=== PATIENT | female | born 1945 | race Caucasian/White ===

== ENCOUNTER → 2016-07-08 | Outpatient (CLI) | payer OTHER ==
[~2016-07-08] MED LIST: ACET-1256 PO; ASPI81TA28 PO; ATOR-22 PO; CHOL100010 PO; CYAN10005 PO; DILT-113 PO; DOCU100C31 PO; DOXY100C76 PO; GLC/500 PO; HYDR-5688 PO; HYDR25TA4 PO; INSDGI SC; LORA10CA2 PO; LOSA50TA6 PO; MAGN400T5 PO; MCRK/10 PO; METO-452 PO; NITR0.4S UT; NVLGI SC; NVLGI7030 SC; PANT40TA PO; PHN/100 PO; PREG100C PO; TOPI200T14 PO; VENL150C56 PO
--- NOTE | 2016-07-08 11:32 | Discharge Instructions ---
Discharge Instructions Procedure Procedure Date: July 08, 2016. Reason for visit: Right Calcs. Discharge Discharge Date: July 08, 2016. Discharge Diagnosis: post ultrasound guided core biopsy left breast and stereotactic guided biopsy right breast. Medications Restart Stopped Medication(s): Continue Aspirin as per usual Instructions Activity Recommendations: Additional Limitations (see below) Return to School/Work: no limitations Recommended Home Diet: No Limitations Provider Instructions: ACTIVITY RECOMMENDATIONS: * No lifting, pushing, pulling or exercising the affected side for three days. RETURN TO SCHOOL/WORK: * You may return to work/school after the procedure, but do not perform any strenuous activities for 24 to 48 hours. MEDICATIONS: * Tylenol (two 325 mg) every four to six hours if needed for mild pain (if not allergic to Tylenol). DIET: * Resume previous diet. SPECIAL CARE INSTRUCTIONS: * Keep biopsy site dry for 24 hours. May shower after 24 hours, but do not soak (bathe) incision. * May remove Tegaderm (plastic patch) tomorrow AFTER showering. * Leave the steri-strips on for one week. Allow the steri-strips to fall off by themselves. If not off after one week, you may remove them. You may place a Bandaid crosswise over the strips, if desired. * Apply ice 10 minutes on and 10 minutes off as needed. * Wear a bra at bedtime to sleep more comfortably for 2-3 days. * Your referring physician should have the results after approximately 5 to 7 business days. * Call for unusual bleeding, fever, drainage, etc or if you have any questions call [phone] during normal business hours or after hours call Dr Amato, . FOLLOW UP VISIT: Follow-up with Referring Physician as scheduled. Allergies Coded Allergies: Fentanyl (Verified Allergy, Intermediate, HIGH BLOOD PRESSURE, SKIN FLUSHED, 01/20/16) PT RECEIVED FENTANYL WHILE AT [facility] [place], AND DEVELOPED HIGH BLOOD PRESSURE AND SKIN BECAME FLUSHED. Cephalosporins (Verified Allergy, Mild, RASH, 01/20/16) Codeine (Verified Allergy, Mild, ALTERED MENTAL STATUS, 01/20/16) Penicillins (Verified Allergy, Mild, RASH, 01/20/16) Sulfa Antibiotics (Verified Allergy, Mild, ?, 01/20/16) BEE STING (Verified Allergy, Unknown, ., 01/20/16) Cephalexin (Verified Allergy, Unknown, Rash, 01/20/16) Iodinated Contrast Media (Verified Allergy, Unknown, PASS OUT, VOMITING, 01/20/16) Ketorolac Tromethamine (Verified Allergy, Unknown, Unknown, 01/20/16) Meperidine (Verified Allergy, Unknown, ., 01/20/16) Morphine (Verified Allergy, Unknown, Nausea, 01/20/16) [place] Recommendations: Call your doctor if: * Temperature above 101 degrees * Pain not relieved by pain medicine ordered * There is increased drainage or redness from any incision * You have any unanswered questions or concerns. Your Doctors Instructions noted above were prepared by provider Michelle Amato. Patient Signature Section: Patient Instructions Signature Page Esthela Kenny Patient (or Guardian) Signature/Date: I have read and understand the instructions given to me by my caregivers. Caregiver/RN/Doctor Signature/Date: The above-named patient and/or guardian has received patient instructions on this date. + Original Patient Signature Page (only) stays with chart. Please make copy for patient.
--- NOTE | 2016-07-08 14:51 | MAMMOGRAPHY REPORT ---
STEREOTACTIC GUIDED BIOPSY RIGHT BREAST: 07/08/2016 CLINICAL HISTORY: Clustered amorphous microcalcifications in the lower outer approximate 9:00 middle one third of the right breast. Patient presented for stereotactic biopsy. COMPARISON: Comparison is made to exams dated: 06/03/2016 mammogram, 06/23/2016 mammogram, and 07/09/19 ultrasound - [facility]. PATIENT CONSENT: After explaining the risks, benefits and alternatives of the procedure to the patie nt, informed consent was obtained both verbally and in writing. Specific risks include: Bleeding, i nfection, puncture of adjacent structure, nontarget biopsy, sampling error, metal allergy and medica tion reaction. PROCEDURE DESCRIPTION: A time-out was performed and the right breast was confirmed as the site of bi opsy. The patient was placed prone on the stereotactic biopsy table and the breast was placed in lat eral compression. A front desk lead image was obtained that demonstrated the clustered microcalcifications in question. They are amenable to sterotactic biopsy. Then +15 and -15 stereo pair images were obtai janeen. The calcifications were targeted utilizing the coordinates obtained by the computer. The skin was prepped with Betadine. 1% Lidocaine with and without epinipherine was administered as local anes thesia. A small skin incision was made. Through the incision, the needle was inserted to the depth determined by the computer. 10 samples were obtained using a Grovac 9-gauge vacuum-assisted bio psy device. The specimen radiograph demonstrated several call center support representative microcalcifications, therefo re, a metallic marker was placed at the biopsy site. There was no immediate complication. Hemostasis was achieved after several minutes of manual compression. The samples were sent to pathology in an appropriately labeled container. Postprocedure CC and ML views of the right breast demonstrate a new metallic biopsy marker in the ap proximate 9:00 middle one third of the breast. There is a post biopsy hematoma measuring approximat mati 6.7 x 6.1 x 4.3 mm. Additional ice packs, Tegaderm patches, Steri-Strips and gauze were provide d to the patient and her pharmacist helper prior to leaving the department with the potential for redressing the incision later tonight or tomorrow. IMPRESSION: STEREOTACTIC GUIDED BIOPSY Status post right breast stereotactic guided biopsy of clustered amorphous microcalcifications in th e approximate 9:00 right breast, with biopsy marker placed at the site. The patient will receive notification of the results from her referring physician. Michelle Amato M.D. ay/:07/08/2016 11:52:02 Chief Investment Officer: Kylie MCKINNEY)(Meghana), [facility]
--- NOTE | 2016-07-08 14:51 | MAMMOGRAPHY REPORT ---
ULTRASOUND GUIDED BIOPSY LEFT BREAST: 07/08/2016 CLINICAL HISTORY: 6 x 5 mm lobulated and circumscribed mass in the lower inner anterior left breast identified mammographically. Targeted second look ultrasound demonstrated a possible intraductal ma ss versus debris within an ectatic duct in the 9:00 left breast. Patient presents for ultrasound gu ided core biopsy. COMPARISON: Comparison is made to exams dated: 06/03/2016 mammogram, 06/23/2016 mammogram, 07/08/2016 u ltrasound, 07/08/2016 mammogram, and 07/08/2016 stereotactic biopsy - [facility]. PATIENT CONSENT: The procedure, risks and benefits were discussed with the patient and informed writ ten consent was obtained. Specific risks to this procedure include: bleeding, infection, puncture of adjacent structure, nontarget biopsy, sampling error, metal allergy and medication reaction. PROCEDURE DESCRIPTION: A time out was performed and the left breast was agreed as the site of biopsy . The skin was prepped and draped in the usual sterile fashion. The duct ectasia with internal debri s versus intraductal mass in the 9:00 left breast was chosen as the target for biopsy. Subcutaneous and intraparenchymal 1% buffered lidocaine was administered as local anesthesia. A skin incision was made. Through the incision, 3 samples were taken with a 14 gauge Achieve biopsy device. A metallic marker was placed at the biopsy site. Hemostasis was achieved after manual compression. The patient tolerated the procedure well and there was no immediate complication. The samples were sent to [facility] in an appropriately labeled container. Postprocedure left CC and ML views demonstrate a new ribbon-shaped metallic biopsy marker within the lobulated and circumscribed mass in question. No significant post biopsy hematoma is identified. IMPRESSION: ULTRASOUND GUIDED BIOPSY Status post ultrasound guided core needle biopsy of a possible intraductal mass versus duct ectasia with bland debris in the 9:00 anterior left breast, with biopsy marker placed at the site. The patient will receive notification of the biopsy results from her referring physician. Michelle Amato M.D. ay/:07/08/2016 11:43:25 Oil Well Pumper: Kylie MCKINNEY)(Meghana), [facility]
--- NOTE | 2016-07-08 14:54 | MAMMOGRAPHY REPORT ---
BILATERAL DIGITAL DIAGNOSTIC MAMMOGRAM: 07/08/2016 CLINICAL HISTORY: Indeterminate possible intraductal mass versus debris in the 9:00 left breast, and clustered micro-calcifications in the right breast. Patient presents for right breast stereotactic biopsy and left breast ultrasound guided core biopsy. Please refer to the reports from left breast ultrasound guided core biopsy and right breast stereota ctic biopsy performed at the same time for full detail. IMPRESSION: POST PROCEDURE IMAGING FOR MARKER PLACEMENT Please refer to the reports from left breast ultrasound guided core biopsy and right breast stereota ctic biopsy performed at the same time for full detail. Approximately 10% of breast cancers are not detected with mammography. A negative mammographic repor t should not delay biopsy if a clinically suggestive mass is present. Michelle Amato M.D. ay/:07/08/2016 11:35:12 Carriage Rider: Kylie MCKINNEY)(Meghana), [facility] BI-RADS Code: Post Procedure Imaging For Marker Placement
--- NOTE | 2016-07-08 14:54 | MAMMOGRAPHY REPORT ---
ULTRASOUND OF LEFT BREAST: 07/08/2016 CLINICAL HISTORY: Patient presented to our department for a stereotactic guided biopsy, as suspiciou s clustered microcalcifications were recently described in the right breast. However, upon review o f a prior outside mammogram dated 06/03/2016, the patient also has a lobulated and circumscribed 6 x 5 mm mass in the lower inner anterior left breast, for which targeted second look ultrasound is per formed. COMPARISON: Comparison is made to exams dated: 06/23/2016 mammogram and 06/03/2016 mammogram. FINDINGS: Real-time high-resolution sonographic evaluation was performed in the lower inner quadrant of the left breast to evaluate for the lobulated and circumscribed 6 x 5 mm mass seen on screening mammography. In the 9:00 left breast, there is an ectatic duct with a lobulated bulbous area measur ing 4 mm in diameter. The size, shape and location correlate well with the mammographic mass. The internal contents of this probable ectatic duct are hypoechoic as opposed to anechoic. This could r epresent bland debris versus an intraductal mass such as a papilloma or DCIS. Definitive characteri zation with tissue sampling is recommended. IMPRESSION: ACR BI-RADS CATEGORY 4: SUSPICIOUS Ultrasound guided core needle biopsy is recommended for a possible intraductal mass versus bland josette ris within duct ectasia in the 9:00 left breast, thought to correlate with a lobulated and circumscr ibed mammographic mass within the left lower inner anterior breast. These results and recommendations were discussed with the patient at the time of the exam. The biop sy was performed during the same appointment and please refer to a separate report for full detail. Michelle Amato M.D. ay/:07/08/2016 11:40:52 Pediatric Sports Medicine Specialist: Kylie JASSO(Kyle)(M), letter sent: Abnormal 4/5 BI-RADS Code: ACR BI-RADS Category 4: Suspicious
== END | disposition home or self-care (01) ==
LOC: C.MAMM 09:48
PROVIDERS: ATTEND Surgery
DX: R92.0 Mammographic microcalcification found on diagnostic imaging of breast (principal); N60.91 Unspecified benign mammary dysplasia of right breast

== ENCOUNTER → 2016-07-28 | Outpatient (CLI) | payer OTHER ==
[~2016-07-28] MED LIST changes: -METO-452 PO; +METO1TAB66 PO
--- NOTE | 2016-07-28 16:17 | MAMMOGRAPHY REPORT ---
ULTRASOUND OF RIGHT BREAST: 07/28/2016 CLINICAL HISTORY: 70-year-old woman presents 3 weeks after a right breast stereotactic guided biopsy, and left breast ultrasound guided core biopsy. She complains of "green pus draining from her incisi on" in the right breast. The left breast incision healed without complication. COMPARISON: Comparison is made to exams dated: 07/08/2016 ultrasound biopsy, 07/08/2016 mammogram, 06/22 stereotactic biopsy, 07/08/2016 ultrasound - [facility], 06/23/2016 mammogram, and 06/03/2016 mammogram. FINDINGS: On visual inspection, there is a localized mildly erythematous ovoid, 12 x 15 cm area surr ounding the skin incision from the right breast stereotactic biopsy. At the site of the skin incisio n, there is a 2.0 x 1.5 cm circular area of granulation tissue with central creamy yellowish/greenish discharge. Targeted ultrasound was performed over the lateral right breast, 9:00 axis, including the erythematou s area and central ulceration/granulation tissue. A predominantly anechoic fluid collection is seen 2 cm deep to the dermis, measuring approximately 2.1 x 2.4 x 1.9 cm. There is mild overlying skin th ickening measuring up to 3 mm. This fluid collection could simply represent evolving hematoma, as a rather large hematoma was noted after the biopsy. These findings were discussed with the patient and her [id number] and the decision was made to a spirate some of the fluid and send to the pathology department for analysis of culture and Gram stain . The skin of the lateral right breast was cleansed with Betadine. 1% buffered lidocaine without ep inephrine was administered as local anesthesia. A 22-gauge needle was advanced into the fluid collec tion and aspiration was performed. 1-2 mL of dark red/brownish fluid were aspirated. Visually this has the appearance of old hematoma. This fluid was sent to the pathology department for analysis. Additional dark brownish fluid was aspirated, approximately 5 mL utilizing an 18-gauge needle. The p atient tolerated the procedure well and there was no immediate complication. We set up a follow-up a ppointment at the wound care clinic tomorrow, 07/29/2016, at 2 PM, prior to the patient leaving the [facility]. She started doxycycline yesterday, given allergies to cephalosporins and penicillins. IMPRESSION: 1. Nonhealing skin incision in the right breast after stereotactic biopsy. Suspect superficial inci brock site infection and surrounding cellulitis. 2. Fluid collection seen in the 9:00 right breast at the site of biopsy most likely represents evolv ing hematoma as opposed to abscess, as the aspirated fluid was not creamy and color and did not appea r to contain pus. Nevertheless, some of this fluid was sent to the pathology department for culture and Gram stain. 3. A follow-up appointment at the wound care center was made prior to the patient leaving our depart ment. The appointment is for 07/29/2016 at 2 PM. All of the above findings were discussed with the patient and her [id number] at the time of the visit. Michelle Amato M.D. ay/:07/28/2016 15:48:59 Onsite Health Coach: Kylie Pagan RT(R)(M), [facility] BI-RADS Code: n/a
== END | disposition home or self-care (01) ==
LOC: C.MAMM 14:30
PROVIDERS: ATTEND Surgery
DX: N61.0 Mastitis without abscess (principal); N64.89 Other specified disorders of breast

== ENCOUNTER → 2016-10-27 | Outpatient (CLI) | payer OTHER ==
[~2016-10-27] MED LIST changes: -DOXY100C76 PO
[2016-10-27 18:19] LABS: CHOLESTEROL/HDL RATIO 2.6; THYROID STIMULATING HORMONE 2.06 uIu/ml (0.300-4.500)
[2016-10-27 18:36] LABS: RATIO 13.5 mcg/mg (0-30.0)
[2016-10-28 06:00] LABS: ESTIMATED AVERAGE GLUCOSE 143 mg/dl; HA1C FLAG Normal (Normal)
== END | disposition home or self-care (01) ==
LOC: C.LABPBG 13:51
PROVIDERS: ATTEND Nurse Practitioner Family
DX: E11.49 Type 2 diabetes mellitus with other diabetic neurological complication (principal)

== ENCOUNTER → 2017-02-10 | Outpatient (CLI) | payer OTHER ==
[~2017-02-10] MED LIST changes: +METO-452 PO; -METO1TAB66 PO
[2017-02-10 12:30] LABS: BASO % 0.9 %; BASO ABS # 0.06 K/uL (0-0.2); COMPLETE YES; EOS % 3.8 %; HEMATOCRIT 41.9 % (37-47); IG% 0.6 %; LYMPH % 28.3 %; LYMPH ABS # 1.93 K/uL (1.2-3.4); MEAN CELL VOLUME 93.3 fL (80-100); MEAN CORPUSCULAR HEMOGLOBIN 31.2 pg (25-34); MEAN CORPUSCULAR HGB CONC 33.4 g/dl (32-36); MEAN PLATELET VOLUME 10.7 fL (7.4-10.4); MONO % 7.3 %; NEUT % 59.1 %; PLATELET COUNT 258 K/uL (130-400); RED BLOOD COUNT 4.49 M/uL (4.2-5.4); WHITE BLOOD COUNT 6.83 K/uL (4.8-10.8)
[2017-02-10 12:51] LABS: ESTIMATED AVERAGE GLUCOSE 137 mg/dl; HA1C FLAG Normal (Normal)
[2017-02-10 17:50] LABS: CHOLESTEROL 158 mg/dl (0-200); CHOLESTEROL/HDL RATIO 2.4; HDL CHOLESTEROL 65 mg/dl; TRIGLYCERIDES 139 mg/dl (0-150); VERY LOW DENSITY LIPOPROT CALC 28 mg/dl
[2017-02-10 17:52] LABS: ALB/GLOB RATIO 0.8 (0.9-2); ALKALINE PHOSPHATASE 160 U/L (45-117); ALT/SGPT 24 U/L (12-78); AST/SGOT 22 U/L (15-37); BLOOD UREA NITROGEN 11 mg/dl (7-18); BUN/CREATININE RATIO 16.4 (10-20); CARBON DIOXIDE 25 mmol/L (21-32); CHLORIDE 107 mmol/L (98-107); CREATININE 0.66 mg/dl (0.60-1.20); GLUCOSE 209 mg/dl (70-99); POTASSIUM 3.4 mmol/L (3.5-5.1); SODIUM 138 mmol/L (136-145)
== END | disposition home or self-care (01) ==
LOC: C.LABPBG 10:50
PROVIDERS: ATTEND Physician Assistant Medical
DX: E11.9 Type 2 diabetes mellitus without complications (principal); R53.83 Other fatigue; G40.909 Epilepsy, unspecified, not intractable, without status epilepticus

== ENCOUNTER 2019-11-14 11:27 | Inpatient (IN) ==
[2019-11-14] MEDS ORDERED: SODIUM CHLORIDE 0.9% 1000ML 1,000 ML IV SCH (12:15)
--- NOTE | 2019-11-14 12:25 | Emergency Department Note ---
Impression & Plan Bilateral leg weakness, Diabetic peripheral neuropathy ED Provider Note Provider: Toni Hylton MD DATE OF SERVICE: 11/14/2019 CHIEF COMPLAINT: Leg pain and weakness HISTORY OF PRESENT ILLNESS: Patient is a 74-year-old female with a history of diabetes, essential tremor, peripheral neuropathy, seizures presenting via ambulance today from home with her [id number] who is her caregiver today reporting that this morning while walking to bathroom she had a severe episode of leg cramping bilaterally and pain causing weakness. She denies falling. Patient states he has been having issues with her legs worsening over approximately the past month. Was unable to get around and thus called the ambulance. Reports last several days has had decreased appetite and intake and caregiver states yesterday and today she seemed a bit off. Blood sugar was noted to be in the 150s at home and not hypoglycemic. Patient denies any difficulty speaking or weakness in her upper extremities with baseline neuropathy in the extremities. Patient denies chest pain or shortness of breath. She denies abdominal pain but states she occasionally gets some nausea. Denies urinary symptoms states she was recently treated for UTI. Patient denies bladder or bowel dysfunction upon my questioning. Patient states that her legs are back to normal now with significant neuropathy. She denies again any new traumatic injury to the lower extremities. Per her request did have the patient's daughter on the phone during H&P. Patient states she does have a little bit of back pain after being on the stretcher here but not not report any of this earlier. Denies fever at home and states she has a mild chronic cough is unchanged. Caregiver states the patient generally resides almost entirely in a recliner at home does not get around very much. REVIEW OF SYSTEMS: A total of 10 review of systems was obtained and negative except as stated above in the HPI. PAST MEDICAL HISTORY: As noted above MEDICATIONS: Reviewed home medication list SOCIAL HISTORY: Lives at home, former smoker PHYSICAL EXAM: GENERAL: alert and oriented in no acute distress on stretcher Head: normocephalic and atraumatic EYES: No injection, discharge or icterus. PERRL NECK: Trachea midline. Supple. ENT: Mucous membranes pink and moist. LUNGS: Airway patent. No retractions. Breath sounds clear anteriorly with diminished lateral bases HEART: Regular rate and rhythm. No chest wall tenderness ABDOMEN: Soft and non-tender, without guarding or rebound. SKIN: Acyanotic, warm, dry, without rashes EXTREMITIES: 1+ lower extremity swelling with neuropathy of the bilateral lower extremities to the hips as well as neuropathy of the upper extremities to the mid upper arm. No evidence of significant traumatic findings or deformity of the lower extremities. No calf tenderness bilaterally. 1+ bilateral DP pulses. NEUROLOGICAL: Neuropathy of the extremities as above. Moves all extremities without issue to command. Ambulatory with assistancex2 with walker here. EK bpm in sinus rhythm with first-degree AV block. Left bundle branch is noted with left axis. No ischemic acute ST segment elevation is noted. CONTINUOUS CARDIAC MONITORING: was ordered and showed a heart rate of 75 bpm in sinus rhythm first-degree AV block with a left bundle branch Patient's hypertension was referred to the hospitalist/PCP Patient's laboratory studies and imaging reviewed. Differential includes Infection, dehydration, metabolic abnormality, hypo/hyperglycemia, electrolyte disturbance, anemia, hypoxia, cardiac sources, i ntracerebral event, toxicologic, neurologic, as well as other pathologies. IMPRESSION/MEDICAL DECISION MAKING: Patient presents from home reporting that her legs cramped up on her today and she was unable to get around. Additionally caregiver states that she has had some decreased intake light several days and seems maybe a bit more confused. Does not seem that focal on exam here. Patient states that seem like her neuropathic type pain.. No significant traumatic fall or recent trauma repo rted. Basic labs were ordered for possible electrolyte abnormality including LFTs and lipase level. Given some fluid hydration. CT the head was ordered as well as a chest x-ray to look for possible infectious sources intercranial abnormality causing symptoms. Labs without significant abnormality. Dilantin level was therapeutic. Urine appears without significant findings for infection. Patient did have a brief syncopal episode during blood draw. Ambulatory here with multiple assist and walker. Discussed with the patient and her caregiver at bedside and her daughter via phone. Patient's daughter reports that the patient usually does not usually have the significant amount of numbness of her lower legs. Patient denies any significant back pain complaint here prior to arrival and I have lower suspicion for a cauda equina or epidural abscess at this point. Has ambulated here with assistance but again she lives by herself. Do have concerns about her ability to continue to function independently at home even with the caregivers she has given her fall risk noted here. Discussed with the daughter and the patient and caregiver recommendations for further observation here in the hospital with PT and OT and further evaluation of her symptoms including possible MRI. Patient was in agreement with this. Hospitalist was contacted. DIAGNOSIS: Leg numbness, ambulatory dysfunction, decreased oral intake DISPOSITION: Hospitalist will evaluate Patient was agreeable with this plan. Past Med/Surg History Medical History (Updated 11/14/19 @ 16:56 by Toni Hylton M.D.) Diabetes type 2, uncontrolled Diabetic peripheral neuropathy Epilepsy Essential tremor Hypertension Loss of memory Surgical History (Updated 11/14/19 @ 16:39 by Silvia Goodman PA-C) S/P adenoidectomy S/P cholecystectomy S/P hysterectomy S/P tonsillectomy S/P umbilical hernia repair, follow-up exam Status post tubal ligation Family History Mother Cancer Father Coronary heart disease Social History Smoking Status: Former smoker Hx Alcohol Use: No Hx Substance Use: No Preferred Language: Belgian Communication Ability: Effective Animal Rehabilitator Required: No Beliefs That Will Affect Care: None Current Living Situation: Alone Other Information That Helps Us Care for You: No Feels Safe at Home: Yes Safety Concerns: Feels Safe At This Time Assistive Devices: Hearing Aid - Bilateral and Walker Allergies Allergies Allergy/AdvReac Type Severity Reaction Status Date / Time fentanyl Allergy Intermediate HIGH BLOOD Verified 03/01/19 17:42 PRESSURE, SKIN FLUSHED Cephalosporins Allergy Mild RASH Verified 03/01/19 17:42 codeine Allergy Mild ALTERED Verified 03/01/19 17:42 MENTAL STATUS Penicillins Allergy Mild RASH Verified 03/01/19 17:42 Sulfa (Sulfonamide Allergy Mild ? Verified 03/01/19 17:42 Antibiotics) bee venom protein (honey bee) Allergy Unknown . Verified 03/01/19 17:42 cephalexin Allergy Unknown Rash Verified 03/01/19 17:42 Iodinated Contrast Media Allergy Unknown PASS OUT, Verified 03/01/19 17:42 VOMITING ketorolac Allergy Unknown Unknown Verified 03/01/19 17:42 meperidine Allergy Unknown . Verified 03/01/19 17:42 morphine Allergy Unknown Nausea Verified 02/13/19 14:39 Home Meds Home Medications Medication Instructions Recorded Confirmed atorvastatin 20 mg tablet 20 mg PO HS #30 tab 02/09/19 11/14/19 cetirizine 10 mg tablet 10 mg PO DAILY PRN tab 02/09/19 11/14/19 cyanocobalamin (vitamin B-12) 1,000 mcg PO DAILY #30 cap 02/09/19 11/14/19 1,000 mcg capsule diltiazem HCl 180 mg 180 mg PO QAM cap 02/09/19 11/14/19 capsule,extended release 24 hr docusate sodium 100 mg capsule 200 mg PO HS cap 02/09/19 11/14/19 hydrochlorothiazide 25 mg tablet 25 mg PO QAM tab 02/09/19 11/14/19 hydrocodone 5 mg-acetaminophen 325 1 tab PO Q6H PRN #30 tab 02/09/19 11/14/19 mg tablet losartan 50 mg tablet 50 mg PO QAM tab 02/09/19 11/14/19 magnesium oxide 400 mg (241.3 mg 400 mg PO QAM tab 02/09/19 11/14/19 magnesium) tablet metformin 500 mg tablet 500 mg PO BID #60 tab 02/09/19 11/14/19 metoprolol succinate 50 mg 50 mg PO QAM tab 02/09/19 11/14/19 tablet,extended release 24 hr nitroglycerin 0.4 mg sublingual 0.4 mg SL DIRECTED PRN tab 02/09/19 11/14/19 tablet pantoprazole 40 mg tablet,delayed 40 mg PO QAM tab 02/09/19 11/14/19 release pregabalin 100 mg capsule 100 mg PO AMHS cap 02/09/19 11/14/19 venlafaxine 150 mg 150 mg PO QAM cap 02/09/19 11/14/19 capsule,extended release 24 hr acetaminophen [Tylenol Extra 500 mg PO Q6H PRN 03/01/19 11/14/19 Strength] alum-mag hydroxide-simeth [Comfort See Rx Instructions .ROUTE .COMPLEX 03/01/19 11/14/19 Gel] clotrimazole [Lotrimin AF 1 applic TOPICAL DIRECTED 03/01/19 11/14/19 (clotrimazole)] insulin aspart U-100 [Novolog See Rx Instructions .ROUTE .COMPLEX 03/01/19 11/14/19 Flexpen U-100 Insulin] insulin glargine [Lantus U-100 42 unit SUBCUT HS 03/01/19 11/14/19 Insulin] polyethylene glycol 3350 [Miralax] 17 g PO QAM 03/01/19 11/14/19 aspirin [Aspirin Low Dose] 81 mg PO QAM 11/14/19 11/14/19 cholecalciferol (vitamin D3) 2,000 unit PO QAM 11/14/19 11/14/19 [Vitamin D3] cholecalciferol (vitamin D3) 4,000 unit PO QPM 11/14/19 11/14/19 [Vitamin D3] oxybutynin chloride 5 mg PO BID 11/14/19 11/14/19 Previous Rx's Medication Instructions Recorded topiramate 200 mg tablet 200 mg PO BID #60 tab 06/05/19 phenytoin sodium extended 100 mg 200 mg PO BID 30 Days #120 cap 08/02/19 capsule Results & Data (ED) Vital Signs Vital Signs - 24 hr 11/14/19 11:20 11/14/19 11:50 11/14/19 11:58 Pulse Rate 79 76 Pulse Rate from SpO2 Sensor 76 75 Respiratory Rate 28 H 14 Respiratory Effort / Characteristics Respiratory Depth Respiratory Pattern Blood Pressure 119/71 142/69 H Blood Pressure Mean 81 78 Pulse Oximetry 95 95 Oxygen Delivery Method Oxygen Flow Rate Sepsis Recent Fever Within 48 Hours Sepsis New/Unexplained Change in Mental Status Sepsis Action Taken by Nursing 11/14/19 12:01 11/14/19 12:34 11/14/19 12:35 Pulse Rate 74 79 78 Pulse Rate from SpO2 Sensor 78 78 Respiratory Rate 20 21 20 Respiratory Effort / Characteristics Non-Labored Spontaneous Respiratory Depth Normal Respiratory Pattern Regular Blood Pressure 131/74 136/83 Blood Pressure Mean 93 89 Pulse Oximetry 95 96 94 Oxygen Delivery Method Room Air Oxygen Flow Rate Sepsis Recent Fever Within 48 Hours No Sepsis New/Unexplained Change in Mental Status No Sepsis Action Taken by Nursing No Action Required 11/14/19 12:41 11/14/19 13:00 11/14/19 13:14 Pulse Rate 82 76 Pulse Rate from SpO2 Sensor 73 Respiratory Rate 20 13 Respiratory Effort / Characteristics Respiratory Depth Respiratory Pattern Blood Pressure 141/98 H Blood Pressure Mean 117 Pulse Oximetry 94 Oxygen Delivery Method Room Air Oxygen Flow Rate Sepsis Recent Fever Within 48 Hours Sepsis New/Unexplained Change in Mental Status Sepsis Action Taken by Nursing 11/14/19 13:41 11/14/19 13:45 11/14/19 13:46 Pulse Rate 75 77 Pulse Rate from SpO2 Sensor 77 74 69 Respiratory Rate 21 17 18 Respiratory Effort / Characteristics Respiratory Depth Respiratory Pattern Blood Pressure Blood Pressure Mean Pulse Oximetry 95 95 95 Oxygen Delivery Method Oxygen Flow Rate Sepsis Recent Fever Within 48 Hours Sepsis New/Unexplained Change in Mental Status Sepsis Action Taken by Nursing 11/14/19 13:54 11/14/19 14:00 11/14/19 14:01 Pulse Rate 75 71 78 Pulse Rate from SpO2 Sensor 73 67 77 Respiratory Rate 21 14 12 Respiratory Effort / Characteristics Respiratory Depth Respiratory Pattern Blood Pressure 140/68 127/64 Blood Pressure Mean 78 102 Pulse Oximetry 93 93 93 Oxygen Delivery Method Oxygen Flow Rate Sepsis Recent Fever Within 48 Hours Sepsis New/Unexplained Change in Mental Status Sepsis Action Taken by Nursing 11/14/19 14:30 11/14/19 14:31 11/14/19 15:00 Pulse Rate 76 72 Pulse Rate from SpO2 Sensor 76 71 76 Respiratory Rate 24 21 17 Respiratory Effort / Characteristics Respiratory Depth Respiratory Pattern Blood Pressure 141/80 H 145/94 H Blood Pressure Mean 131 125 Pulse Oximetry 94 96 94 Oxygen Delivery Method Oxygen Flow Rate Sepsis Recent Fever Within 48 Hours Sepsis New/Unexplained Change in Mental Status Sepsis Action Taken by Nursing 11/14/19 15:01 11/14/19 15:30 11/14/19 15:31 Pulse Rate 85 72 76 Pulse Rate from SpO2 Sensor 81 71 77 Respiratory Rate 20 15 19 Respiratory Effort / Characteristics Respiratory Depth Respiratory Pattern Blood Pressure 145/80 H Blood Pressure Mean 83 Pulse Oximetry 94 97 97 Oxygen Delivery Method Nasal Cannula Oxygen Flow Rate 2 Sepsis Recent Fever Within 48 Hours Sepsis New/Unexplained Change in Mental Status Sepsis Action Taken by Nursing 11/14/19 16:00 11/14/19 16:01 11/14/19 16:30 Pulse Rate 76 110 H 77 Pulse Rate from SpO2 Sensor 74 72 79 Respiratory Rate 21 19 12 Respiratory Effort / Characteristics Respiratory Depth Respiratory Pattern Blood Pressure 139/81 163/83 H Blood Pressure Mean 101 120 Pulse Oximetry 97 97 96 Oxygen Delivery Method Oxygen Flow Rate Sepsis Recent Fever Within 48 Hours Sepsis New/Unexplained Change in Mental Status Sepsis Action Taken by Nursing 11/14/19 16:31 Pulse Rate 75 Pulse Rate from SpO2 Sensor 77 Respiratory Rate 15 Respiratory Effort / Characteristics Respiratory Depth Respiratory Pattern Blood Pressure Blood Pressure Mean Pulse Oximetry 94 Oxygen Delivery Method Oxygen Flow Rate Sepsis Recent Fever Within 48 Hours Sepsis New/Unexplained Change in Mental Status Sepsis Action Taken by Nursing Laboratory Data Result diagrams: 11/14/19 12:28 11/14/19 12:28 Lab Results 11/14/19 11/14/19 11/14/19 Range/Units 12:28 12:28 12:28 WBC 9.33 (4.8-10.8) K/uL RBC 4.95 (4.2-5.4) M/uL Hgb 14.2 (12.0-16.0) g/dL Hct 43.5 (37-47) % MCV 87.9 (80-100) fL MCH 28.7 (25-34) pg MCHC 32.6 (32-36) g/dL RDW Std Deviation 47.9 H (36.4-46.3) fL RDW Coeff of Nic 15.0 H (11.5-14.5) % Plt Count 338 (130-400) K/uL MPV 9.7 (7.4-10.4) fL Immature Gran % (Auto) 0.3 % Neut % (Auto) 67.2 % Lymph % (Auto) 21.7 % [place] % (Auto) 7.2 % Eos % (Auto) 3.0 % Baso % (Auto) 0.6 % Neut # (Auto) 6.27 (1.4-6.5) K/uL Lymph # (Auto) 2.02 (1.2-3.4) K/uL [place] # (Auto) 0.67 H (0.11-0.59) K/uL Eos # (Auto) 0.28 (0-0.5) K/uL Baso # (Auto) 0.06 (0-0.2) K/uL Immature Gran # (Auto) 0.03 H (0.00-0.02) K/uL PT 10.8 (9.0-12.0) Seconds INR 1.0 (0.9-1.1) Sodium 142 (136-145) mmol/L Potassium 3.4 L (3.5-5.1) mmol/L Chloride 107 (98-107) mmol/L Carbon Dioxide 24 (21-32) mmol/L Anion Gap 12.0 H (3-11) BUN 11 (7-18) mg/dl Creatinine 0.73 (0.6-1.2) mg/dl Est Cr Clr Drug Dosing 83.5 ml/min Est GFR ( Amer) 94.7 Est GFR (Non-Af Amer) 81.7 BUN/Creatinine Ratio 14.7 (10-20) Glucose 121 H (70-99) mg/dl POC Glucose (70-99) mg/dl Calcium 9.6 (8.5-10.1) mg/dl Magnesium 2.0 (1.8-2.4) mg/dl Total Bilirubin 0.3 (0.2-1) mg/dl AST 17 (15-37) U/L ALT 16 (12-78) U/L Alkaline Phosphatase 156 H (45-117) U/L Troponin I < 0.015 (0-0.045) ng/ml Total Protein 8.0 (6.4-8.2) gm/dl Albumin 3.2 L (3.4-5.0) gm/dl Globulin 4.8 H (2.5-4.0) gm/dl Albumin/Globulin Ratio 0.7 L (0.9-2) Lipase 80 (73-393) U/L TSH 1.440 (0.300-4.500) uIu/ml Urine Color Urine Appearance (Clear) Urine pH (4.5-7.5) Ur Specific [place] (1.000-1.030) Urine Protein (Negative) Urine Glucose (UA) (Negative) Urine Ketones (Negative) Urine Blood (Negative) Urine Nitrite (Negative) Urine Bilirubin (Negative) Urine Urobilinogen (Negative) Ur Leukocyte Esterase (Negative) Urine WBC (Auto) (0-5) /hpf Urine RBC (Auto) (0-4) /hpf U Hyaline Cast (Auto) (0-5) /lpf U Epithel Cells (Auto) (0-5) /lpf Urine Bacteria (Auto) (Negative) Phenytoin (10-20) mcg/ml 11/14/19 11/14/19 11/14/19 Range/Units 12:28 12:36 12:39 WBC (4.8-10.8) K/uL RBC (4.2-5.4) M/uL Hgb (12.0-16.0) g/dL Hct (37-47) % MCV (80-100) fL MCH (25-34) pg MCHC (32-36) g/dL RDW Std Deviation (36.4-46.3) fL RDW Coeff of Nic (11.5-14.5) % Plt Count (130-400) K/uL MPV (7.4-10.4) fL Immature Gran % (Auto) % Neut % (Auto) % Lymph % (Auto) % [place] % (Auto) % Eos % (Auto) % Baso % (Auto) % Neut # (Auto) (1.4-6.5) K/uL Lymph # (Auto) (1.2-3.4) K/uL [place] # (Auto) (0.11-0.59) K/uL Eos # (Auto) (0-0.5) K/uL Baso # (Auto) (0-0.2) K/uL Immature Gran # (Auto) (0.00-0.02) K/uL PT (9.0-12.0) Seconds INR (0.9-1.1) Sodium (136-145) mmol/L Potassium (3.5-5.1) mmol/L Chloride (98-107) mmol/L Carbon Dioxide (21-32) mmol/L Anion Gap (3-11) BUN (7-18) mg/dl Creatinine (0.6-1.2) mg/dl Est Cr Clr Drug Dosing ml/min Est GFR ( Amer) Est GFR (Non-Af Amer) BUN/Creatinine Ratio (10-20) Glucose (70-99) mg/dl POC Glucose 115 H (70-99) mg/dl Calcium (8.5-10.1) mg/dl Magnesium (1.8-2.4) mg/dl Total Bilirubin (0.2-1) mg/dl AST (15-37) U/L ALT (12-78) U/L Alkaline Phosphatase (45-117) U/L Troponin I (0-0.045) ng/ml Total Protein (6.4-8.2) gm/dl Albumin (3.4-5.0) gm/dl Globulin (2.5-4.0) gm/dl Albumin/Globulin Ratio (0.9-2) Lipase (73-393) U/L TSH (0.300-4.500) uIu/ml Urine Color Yellow Urine Appearance Clear (Clear) Urine pH 8.5 H (4.5-7.5) Ur Specific [place] 1.013 (1.000-1.030) Urine Protein Negative (Negative) Urine Glucose (UA) Negative (Negative) Urine Ketones Negative (Negative) Urine Blood Negative (Negative) Urine Nitrite Negative (Negative) Urine Bilirubin Negative (Negative) Urine Urobilinogen Negative (Negative) Ur Leukocyte Esterase Negative (Negative) Urine WBC (Auto) 1-5 (0-5) /hpf Urine RBC (Auto) 0-4 (0-4) /hpf U Hyaline Cast (Auto) 0 (0-5) /lpf U Epithel Cells (Auto) 10-20 H (0-5) /lpf Urine Bacteria (Auto) Negative (Negative) Phenytoin 13.4 (10-20) mcg/ml 11/14/19 Range/Units 14:13 WBC (4.8-10.8) K/uL RBC (4.2-5.4) M/uL Hgb (12.0-16.0) g/dL Hct (37-47) % MCV (80-100) fL MCH (25-34) pg MCHC (32-36) g/dL RDW Std Deviation (36.4-46.3) fL RDW Coeff of Nic (11.5-14.5) % Plt Count (130-400) K/uL MPV (7.4-10.4) fL Immature Gran % (Auto) % Neut % (Auto) % Lymph % (Auto) % [place] % (Auto) % Eos % (Auto) % Baso % (Auto) % Neut # (Auto) (1.4-6.5) K/uL Lymph # (Auto) (1.2-3.4) K/uL [place] # (Auto) (0.11-0.59) K/uL Eos # (Auto) (0-0.5) K/uL Baso # (Auto) (0-0.2) K/uL Immature Gran # (Auto) (0.00-0.02) K/uL PT (9.0-12.0) Seconds INR (0.9-1.1) Sodium (136-145) mmol/L Potassium (3.5-5.1) mmol/L Chloride (98-107) mmol/L Carbon Dioxide (21-32) mmol/L Anion Gap (3-11) BUN (7-18) mg/dl Creatinine (0.6-1.2) mg/dl Est Cr Clr Drug Dosing ml/min Est GFR ( Amer) Est GFR (Non-Af Amer) BUN/Creatinine Ratio (10-20) Glucose (70-99) mg/dl POC Glucose 106 H (70-99) mg/dl Calcium (8.5-10.1) mg/dl Magnesium (1.8-2.4) mg/dl Total Bilirubin (0.2-1) mg/dl AST (15-37) U/L ALT (12-78) U/L Alkaline Phosphatase (45-117) U/L Troponin I (0-0.045) ng/ml Total Protein (6.4-8.2) gm/dl Albumin (3.4-5.0) gm/dl Globulin (2.5-4.0) gm/dl Albumin/Globulin Ratio (0.9-2) Lipase (73-393) U/L TSH (0.300-4.500) uIu/ml Urine Color Urine Appearance (Clear) Urine pH (4.5-7.5) Ur Specific [place] (1.000-1.030) Urine Protein (Negative) Urine Glucose (UA) (Negative) Urine Ketones (Negative) Urine Blood (Negative) Urine Nitrite (Negative) Urine Bilirubin (Negative) Urine Urobilinogen (Negative) Ur Leukocyte Esterase (Negative) Urine WBC (Auto) (0-5) /hpf Urine RBC (Auto) (0-4) /hpf U Hyaline Cast (Auto) (0-5) /lpf U Epithel Cells (Auto) (0-5) /lpf Urine Bacteria (Auto) (Negative) Phenytoin (10-20) mcg/ml Administered Medications Discontinued Medications Sodium Chloride (Nss 1000ml) 1,000 mls @ 999 mls/hr IV .[id number] EVELIO Stop: 11/14/19 13:15 Last Infusion: 11/14/19 14:18 Dose: 0 mls/hr Documented by: [id number] Admin: 11/14/19 13:15 Dose: 999 mls/hr Documented by: [id number] Discharge Plan Visit Data Chief Complaint: Lower Extremity Injury/Pain Stated Complaint: numbness/lower legs ED Provider: Toni Hylton Discharge Problem: Bilateral leg weakness, Diabetic peripheral neuropathy Patient Disposition: Being Evaluated by Hospitalist Forms Stand Alone Forms: [facility] Prescriptions Prescriptions: No Action topiramate [Topamax] 200 mg tablet 200 mg PO BID Qty: 60 RF: 4 phenytoin sodium extended 100 mg capsule 200 mg PO BID 30 Days Qty: 120 RF: 2 atorvastatin 20 mg tablet 20 mg PO HS Qty: 30 RF: 0 cetirizine 10 mg tablet 10 mg PO DAILY PRN (Reason: Allergy Symptoms) RF: 0 cyanocobalamin (vitamin B-12) 1,000 mcg capsule 1,000 mcg PO DAILY Qty: 30 RF: 0 diltiazem HCl 180 mg capsule,extended release 24hr 180 mg PO QAM RF: 0 docusate sodium 100 mg capsule 200 mg PO HS RF: 0 hydrochlorothiazide 25 mg tablet 25 mg PO QAM RF: 0 hydrocodone-acetaminophen 5-325 mg tablet 1 tab PO Q6H PRN (Reason: Pain) Qty: 30 RF: 0 losartan 50 mg tablet 50 mg PO QAM RF: 0 magnesium oxide 400 mg (241.3 mg magnesium) tablet 400 mg PO QAM RF: 0 pregabalin 100 mg capsule 100 mg PO AMHS RF: 0 venlafaxine 150 mg capsule,extended release 24hr 150 mg PO QAM RF: 0 pantoprazole 40 mg tablet,delayed release (DR/EC) 40 mg PO QAM RF: 0 nitroglycerin 0.4 mg tablet, sublingual 0.4 mg SL DIRECTED PRN (Reason: Chest Pain) RF: 0 metoprolol succinate 50 mg tablet extended release 24 hr 50 mg PO QAM RF: 0 metformin 500 mg tablet 500 mg PO BID Qty: 60 RF: 0 Lantus U-100 Insulin 100 unit/mL solution 42 unit SUBCUT HS RF: 0 polyethylene glycol 3350 [Miralax] 17 gram Powder In Packet 17 g PO QAM RF: 0 acetaminophen [Tylenol Extra Strength] 500 mg Tablet 500 mg PO Q6H PRN (Reason: Pain) RF: 0 alum-mag hydroxide-simeth [Comfort Gel] 200-200-20 mg/5 mL Suspension See Rx Instructions .ROUTE .COMPLEX RF: 0 clotrimazole [Lotrimin AF (clotrimazole)] 1 % Cream 1 applic TOPICAL DIRECTED RF: 0 insulin aspart U-100 [Novolog Flexpen U-100 Insulin] 100 unit/mL (3 mL) insulin pen See Rx Instructions .ROUTE .COMPLEX RF: 0 aspirin [Aspirin Low Dose] 81 mg Tablet,Delayed Release (Dr/Ec) 81 mg PO QAM RF: 0 cholecalciferol (vitamin D3) [Vitamin D3] 50 mcg (2,000 unit) Capsule 2,000 unit PO QAM RF: 0 cholecalciferol (vitamin D3) [Vitamin D3] 50 mcg (2,000 unit) Capsule 4,000 unit PO QPM RF: 0 oxybutynin chloride 5 mg tablet 5 mg PO BID RF: 0 Referrals Referrals: Margarito Al [Primary Care Provider] -
--- NOTE | 2019-11-14 12:41 | XRay Report ---
SINGLE VIEW CHEST CLINICAL HISTORY: Generalized weakness. FINDINGS: An AP, portable, upright chest radiograph is compared to study dated 04/06/2019. The examina tion is degraded by portable technique and patient rotation. The heart is top normal for projection noting atherosclerotic calcification of the thoracic and. There is a large hiatal hernia. Chronic in terstitial thickening is similar to previous. There is bibasilar atelectasis. No airspace consolidati on or large pleural effusion is identified. No pneumothorax is seen. The skeletal structures are oste openic. The bony thorax is grossly intact. IMPRESSION: 1. No active disease in the chest. 2. Hiatal hernia. ACT 112: Negative or not required by law. Electronically signed by: Huan Kaur M.D. 11/14/2019 12:40 PM
[2019-11-14 12:51] LABS: Basophils # (auto) 0.06 K/uL (0-0.2); Basophils % (auto) 0.6 %; Eosinophils # (auto) 0.28 K/uL (0-0.5); Hematocrit (blood only) 43.5 % (37-47); Hemoglobin 14.2 g/dL (12.0-16.0); Immature Granulocytes # (auto) 0.03 K/uL (0.00-0.02); Immature Granulocytes % (auto) 0.3 %; Lymphocytes # (auto) 2.02 K/uL (1.2-3.4); Lymphocytes % (auto) 21.7 %; Mean Corpuscular Hemoglobin 28.7 pg (25-34); Mean Corpuscular Hgb Conc 32.6 g/dL (32-36); Mean Corpuscular Volume 87.9 fL (80-100); Mean Platelet Volume 9.7 fL (7.4-10.4); Monocytes # (auto) 0.67 K/uL (0.11-0.59); Monocytes % (auto) 7.2 %; Neutrophils # (auto) 6.27 K/uL (1.4-6.5); Neutrophils % (auto) 67.2 %; Platelet Count 338 K/uL (130-400); RDW Standard Deviation 47.9 fL (36.4-46.3); Red Blood Count 4.95 M/uL (4.2-5.4); White Blood Count 9.33 K/uL (4.8-10.8)
[2019-11-14 12:56] LABS: Prothrombin Time 10.8 Seconds (9.0-12.0)
[2019-11-14 12:56] LABS: Appearance Urine Clear (Clear); Bacteria Urine Automated Negative (Negative); Bilirubin Urine Negative (Negative); Blood Urine Negative (Negative); Cast Urine Automated 0 /lpf (0-5); Color Urine Yellow; Glucose Urine UA Negative (Negative); Ketones Urine Negative (Negative); Leukocyte Esterase Urine Negative (Negative); Nitrite Urine Negative (Negative); RBC Urine Automated 0-4 /hpf (0-4); Specific Gravity Urine 1.013 (1.000-1.030); Urobilinogen Urine Negative (Negative); pH Urine 8.5 (4.5-7.5)
[2019-11-14 12:59] LABS: Protein Urine Negative (Negative); Sulfosalicylic Acid Urine Negative (Negative)
[2019-11-14 13:12] LABS: Alanine Aminotransferase 16 U/L (12-78); Albumin Level 3.2 gm/dl (3.4-5.0); Aspartate Aminotransferase 17 U/L (15-37); BUN Creatinine Ratio 14.7 (10-20); Blood Urea Nitrogen 11 mg/dl (7-18); Calcium 9.6 mg/dl (8.5-10.1); Carbon Dioxide 24 mmol/L (21-32); Chloride 107 mmol/L (98-107); Creatinine Clr Calc Pharmacy 83.5 ml/min; Est GFR (African American) 94.7; Est GFR (Non-African American) 81.7; Glucose 121 mg/dl (70-99); Lipase 80 U/L (73-393); Potassium 3.4 mmol/L (3.5-5.1); Sodium 142 mmol/L (136-145)
[2019-11-14 13:23] LABS: Albumin Globulin Ratio 0.7 (0.9-2); Alkaline Phosphatase 156 U/L (45-117); Bilirubin,Total 0.3 mg/dl (0.2-1); Globulin 4.8 gm/dl (2.5-4.0); Troponin I < 0.015 ng/ml (0-0.045)
--- NOTE | 2019-11-14 13:47 | CT Scan Report ---
CT head/brain wo con CLINICAL HISTORY: 74 years-old Female with weakness. Acute weakness TECHNIQUE: Multiple axial CT images of the head were obtained without contrast. A dose lowering tech nique was utilized adhering to the principles of ALARA. CT DOSE: 638.56 mGycm COMPARISON: Head CT 04/06/2019. FINDINGS: No acute intracranial hemorrhage, midline shift, intracranial mass, hydrocephalus, territorial ischem ia or abnormal extra-axial collection. Age-related involutional changes. Senescent calcifications of the lentiform nuclei. Cerebral vascular calcifications. 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 The calvarium is intact. The paranasal sinuses, mastoid air cells, and middle ear cavities are clear . IMPRESSION: Chronic findings as above without acute intracranial abnormality. ACT 112: Negative or not required by law. The above report was generated using voice recognition software. It may contain grammatical, syntax o r spelling errors. Electronically signed by: Paulo Guadarrama M.D. 11/14/2019 1:45 PM
--- NOTE | 2019-11-14 15:26 | History & Physical Report ---
Date of Service November 14, 2019 Assessment & Plan (1) Bilateral leg weakness: -Admit to [facility] for observation -PT/OT consults -Does not appear to be any significant neurological deficits concerning for CVA, however with bilateral sensory deficits which are new by history -Concern for myelitis of the spinal cord causing weakness/sensory deficit, and worsening pain, will check MRI of cervical/thoracic/lumbar spine with and without contrast as per discussion with neurology- Patient reports being claustrophobic we will dose with small dose IV Ativan for sedation. -Lives at home by herself, likely require PT/OT, CM to assist with discharge planning -Checking Covid swab with recent exposure - pt is having headache, low appetite, but no fevers, shortness of breath, or cough. She finished 14 day quarantine 1 week ago -Check CK, B12, methylmalonic acid, vitamin B1, Lyme, and TSH. -Neurology consultation placed (2) Diabetes type 2, uncontrolled: - Continue Lantus 42 units HS - ISS with 6 units at breakfast, 10 units at lunch, 12 units dinner and sliding scale Check hemoglobin A1c in the morning (3) Diabetic peripheral neuropathy: - Cont pregabalin - Check B12, B1, TSH as add on labs - Cont supplementation (4) Epilepsy: - hx of such, continue on phenytoin, level was checked and is 13. Cont topamax 200 mg BID - No seizures in over 1 year - Follows neuro as an outpatient, cannot recall the name, follows in [facility], no notes in our system. Has been over 1 year since being there in the office. (5) Dyslipidemia: - Cont atorvastatin 20 mg HS (6) Hypertension: - Cont diltiazem 180 mg Po QAM, HCTZ 25 mg QAM, losartan 50 mg QAM, metoprolol XL 50 mg QAM (7) Vitamin B12 deficiency: - Checking B12 level, on supplementation (8) Vitamin D deficiency: - Con supplementation (9) Hx of cerebral aneurysm repair: - CT head reviewed: Postoperative changes of prior left frontotemporal craniotomy with aneurysm clipping within the sylvian fissure. Unchanged small area of encephalomalacia involving the left frontal lobe. - Done in 2009 at [facility], will ask HIM and request records. (10) Loss of memory: - has of difficulty with recall of events. Checking vitamin B1 level (11) DVT prophylaxis: - teds CODE: Full - discussed with pt and family Dispo: From home, likely to remain in the hospital x 1-2 days PT/OT consultations placed History of Present Illness Chief Complaint: Leg pain and numbness Primary Care Provider: Margarito Al This is a 74-year-old female with PMHx of seizure disorder on phenytoin, hx of cerebral aneurysm s/p craniotomy and clipping, DM type II, HTN, HLD, peripheral neuropathy, morbid obesity with BMI of 50.4, essential tremor, vitamin B12 and vitamin D deficiencies, who presents with acute onset of bilateral lower extremity weakness, numbness, and pain. Patient notes that the leg weakness has been going on for approximately 1 month. Today she got up from her lift reclining chair in the living room and walked to the bathroom with a walker, use the toilet and was able to stand back up and on her walk back to the recliner felt that her legs became extremely stiff. She denies lightheadedness, dizziness, pain or difficulty moving the legs. She was able to make it back to the chair and sat down and leg pain and stiffness eventually resolved. She reports that she does follow with neurology but it has been over a year since being seen there. Her PCP fills phenytoin prescriptions when needed. She did take all of her routinely scheduled medications this morning but cannot recall dosing as a visiting nurse does this for her on a weekly basis. Pt lives at home by herself but has caregivers from 8 AM to 9 PM and on a daily basis. Daughter who is present at bedside reports that she was exposed to a known COVID positive patient who is 1 of her caregivers. She just finished 14 d quarantine about 1 week ago, where she did not receive any of her routine PT/OT therapy or visiting nurses. Here in the ER patient does not appear to have any infectious etiology, UA negative, CT the head negative, no white blood cell count, afebrile. We will admit for PT/OT consults and evaluation of the spine. Allergies Allergy/AdvReac Type Severity Reaction Status Date / Time fentanyl Allergy Intermediate HIGH BLOOD Verified 03/01/19 17:42 PRESSURE, SKIN FLUSHED Cephalosporins Allergy Mild RASH Verified 03/01/19 17:42 codeine Allergy Mild ALTERED Verified 03/01/19 17:42 MENTAL STATUS Penicillins Allergy Mild RASH Verified 03/01/19 17:42 Sulfa (Sulfonamide Allergy Mild ? Verified 03/01/19 17:42 Antibiotics) bee venom protein (honey bee) Allergy Unknown . Verified 03/01/19 17:42 cephalexin Allergy Unknown Rash Verified 03/01/19 17:42 Iodinated Contrast Media Allergy Unknown PASS OUT, Verified 03/01/19 17:42 VOMITING ketorolac Allergy Unknown Unknown Verified 03/01/19 17:42 meperidine Allergy Unknown . Verified 03/01/19 17:42 morphine Allergy Unknown Nausea Verified 02/13/19 14:39 Home Medications Home Medications Medication Instructions Recorded Confirmed Type atorvastatin 20 mg tablet 20 mg PO HS #30 tab 02/09/19 11/14/19 History cetirizine 10 mg tablet 10 mg PO DAILY PRN tab 02/09/19 11/14/19 History cyanocobalamin (vitamin B-12) 1,000 mcg PO DAILY #30 cap 02/09/19 11/14/19 History 1,000 mcg capsule diltiazem HCl 180 mg 180 mg PO QAM cap 02/09/19 11/14/19 History capsule,extended release 24 hr docusate sodium 100 mg capsule 200 mg PO HS cap 02/09/19 11/14/19 History hydrochlorothiazide 25 mg tablet 25 mg PO QAM tab 02/09/19 11/14/19 History hydrocodone 5 mg-acetaminophen 325 1 tab PO Q6H PRN #30 tab 02/09/19 11/14/19 History mg tablet losartan 50 mg tablet 50 mg PO QAM tab 02/09/19 11/14/19 History magnesium oxide 400 mg (241.3 mg 400 mg PO QAM tab 02/09/19 11/14/19 History magnesium) tablet metformin 500 mg tablet 500 mg PO BID #60 tab 02/09/19 11/14/19 History metoprolol succinate 50 mg 50 mg PO QAM tab 02/09/19 11/14/19 History tablet,extended release 24 hr nitroglycerin 0.4 mg sublingual 0.4 mg SL DIRECTED PRN tab 02/09/19 11/14/19 History tablet pantoprazole 40 mg tablet,delayed 40 mg PO QAM tab 02/09/19 11/14/19 History release pregabalin 100 mg capsule 100 mg PO AMHS cap 02/09/19 11/14/19 History venlafaxine 150 mg 150 mg PO QAM cap 02/09/19 11/14/19 History capsule,extended release 24 hr acetaminophen [Tylenol Extra 500 mg PO Q6H PRN 03/01/19 11/14/19 History Strength] alum-mag hydroxide-simeth [Comfort See Rx Instructions .ROUTE .COMPLEX 03/01/19 11/14/19 History Gel] clotrimazole [Lotrimin AF 1 applic TOPICAL DIRECTED 03/01/19 11/14/19 History (clotrimazole)] insulin aspart U-100 [Novolog See Rx Instructions .ROUTE .COMPLEX 03/01/19 11/14/19 History Flexpen U-100 Insulin] insulin glargine [Lantus U-100 42 unit SUBCUT HS 03/01/19 11/14/19 History Insulin] polyethylene glycol 3350 [Miralax] 17 g PO QAM 03/01/19 11/14/19 History topiramate 200 mg tablet 200 mg PO BID #60 tab 06/05/19 11/14/19 Rx phenytoin sodium extended 100 mg 200 mg PO BID 30 Days #120 cap 08/02/19 11/14/19 Rx capsule aspirin [Aspirin Low Dose] 81 mg PO QAM 11/14/19 11/14/19 History cholecalciferol (vitamin D3) 2,000 unit PO QAM 11/14/19 11/14/19 History [Vitamin D3] cholecalciferol (vitamin D3) 4,000 unit PO QPM 11/14/19 11/14/19 History [Vitamin D3] oxybutynin chloride 5 mg PO BID 11/14/19 11/14/19 History Past Med/Surg History Medical History (Updated 11/14/19 @ 21:48 by Betty Estrella MD) Diabetes type 2, uncontrolled Diabetic peripheral neuropathy Dyslipidemia Epilepsy Essential tremor Hypertension Loss of memory Vitamin B12 deficiency Vitamin D deficiency Surgical History (Updated 11/14/19 @ 21:48 by Betty Estrella MD) Hx of cerebral aneurysm repair S/P adenoidectomy S/P cholecystectomy S/P hysterectomy S/P tonsillectomy S/P umbilical hernia repair, follow-up exam Status post tubal ligation Family History Mother Cancer Father Coronary heart disease Social History Smoking Status: Former smoker Hx Alcohol Use: No Hx Substance Use: No Preferred Language: Libyan Communication Ability: Effective Housecalls Nurse Required: No Beliefs That Will Affect Care: None Current Living Situation: Alone Other Information That Helps Us Care for You: No Feels Safe at Home: Yes Safety Concerns: Feels Safe At This Time Assistive Devices: Walker Review of Systems Review of Systems: Constitutional: No fever, sweats or chills Eyes: No diplopia, no worsening or blurred vision ENT: normal hearing, no trouble swallowing Respiratory: No cough, sputum, dyspnea at rest or on exertion Cardiovascular: No chest pain, tightness or palpitations Abdomen: No pain, nausea, vomiting, diarrhea or constipation Musculoskeletal: As per HPI Neurologic: + Weakness, + peripheral neuropathy at baseline in BLE up to the knee, + uses a walker for ambulation Psychiatric: + Anxious affect Skin: No rash or itch Physical Exam Physical Exam: General: awake, alert, no apparent distress, + Morbidly obese, BMI 50.4 Head: Normocephalic, atraumatic ENT: PERRL, EOMI, no pharyngeal exudate, mucous membranes moist, + endentulous Chest: Clear to auscultation, on room air with O2 sats at 97-98%, no adventitious breath sounds Cardiac: Regular rate and rhythm, +soft systolic murmur, JVD unable to be assessed due to body habitus, normal peripheral pulses, good capillary refill Abdominal: NABS x 4 quadrants, soft, nondistended, nontender to palpation, no rebound or guarding Extremities: Normal inspection, no peripheral edema or erythema, calfs nontender to palpation Psych: Normal mood and affect Neuro: AAO x 3, CN II-XII assessed and grossly intact, strength intact bilaterally and rated 3/5 in BLE, 4/5 in BUE, unable to do heel to starr testing due to limited mobility and diminished strength. Speech is clear, with positive peripheral sensory deficits to pinprick and light touch throughout bilateral lower extremities throughout. Results & Data Results & Data ([facility]) Vital Signs (Past 12 Hours) Vital Signs Pulse Resp BP Pulse Ox 11/14/19 15:00 72 17 145/94 H 94 11/14/19 14:31 21 141/80 H 96 11/14/19 14:30 76 24 94 11/14/19 14:01 78 12 93 11/14/19 14:00 71 14 127/64 93 11/14/19 13:54 75 21 140/68 93 11/14/19 13:46 77 18 95 11/14/19 13:45 75 17 95 11/14/19 13:41 21 95 11/14/19 13:14 76 13 141/98 H 94 11/14/19 13:00 82 20 11/14/19 12:35 78 20 136/83 94 11/14/19 12:34 79 21 96 11/14/19 12:01 74 20 131/74 95 11/14/19 11:58 142/69 H 11/14/19 11:50 76 14 95 11/14/19 11:20 79 28 H 119/[address] head/brain wo con CLINICAL HISTORY: 74 years-old Female with weakness. Acute weakness TECHNIQUE: Multiple axial CT images of the head were obtained without contrast. A dose lowering technique was utilized adhering to the principles of ALARA. CT DOSE: 638.56 mGycm COMPARISON: Head CT 04/06/2019. FINDINGS: No acute intracranial hemorrhage, midline shift, intracranial mass, hydrocephalus, territorial ischemia or abnormal extra-axial collection. Age- related involutional changes. Senescent calcifications of the lentiform nuclei. Cerebral vascular calcifications. Postoperative changes of prior left frontotemporal craniotomy with aneurysm clipping within the sylvian fissure. Unchanged small area of encephalomalacia involving the left frontal lobe. The calvarium is intact. The paranasal sinuses, mastoid air cells, and middle ear cavities are clear. IMPRESSION: Chronic findings as above without acute intracranial abnormality. SINGLE VIEW CHEST CLINICAL HISTORY: Generalized weakness. FINDINGS: An AP, portable, upright chest radiograph is compared to study dated 04/06/2019. The examination is degraded by portable technique and patient rotation. The heart is top normal for projection noting atherosclerotic calcification of the thoracic and. There is a large hiatal hernia. Chronic interstitial thickening is similar to previous. There is bibasilar atelectasis. No airspace consolidation or large pleural effusion is identified. No pneumothorax is seen. The skeletal structures are osteopenic. The bony thorax is grossly intact. IMPRESSION: 1. No active disease in the chest. 2. Hiatal hernia. ECG Additional Comments: 14-NOV-2019 11:34:09 [facility]-EDSTAT ROUTINE RETRIEVAL Poor data quality, interpretation may be adversely affected Sinus rhythm with 1st degree A-V block Left axis deviation Left bundle branch block Abnormal ECG When compared with ECG of 01-MAR-2019 16:36, QRS duration has increased 25mm/s 10mm/mV 150Hz 9.0.9 12SL 241 WHIT: 16 Referred by: REFERRED SELF Unconfirmed Vent. rate 68 BPM TN interval 226 ms QRS duration 156 ms QT/QTc 448/476 ms P-R-T axes 72 -31 67 Code Status & VTE Plan Code Status Full code- discussed with the pt at bedside. Supervising Physician Co-Signing Physician Notes PA Supervision Note: I personally saw and examined the patient. I verified all coreas points and agree with JANNETTE Goodman with the following exceptions and/or additions: This patient is a 74-year-old female with history noted as above who presents with worsening bilateral lower extremity weakness, stiffness and pain as well as most concerning a loss of sensation. She denies bowel or bladder issues. She is able to walk with a walker and assistance but daughter is most concerned about the loss of sensation which is new. The patient denies any back pain, but has been feeling poorly and having a lower appetite the last few days. Denies fevers or chills. Did have exposure to a caregiver with COVID but completed a two-week quarantine approximately 12 days ago. She personally was not tested fo r COVID. She now complains of a mild headache, loss of appetite, but no shortness of breath or cough, no nausea/vomiting/diarrhea. History and ROS reviewed as above Vitals reviewed Gen: [AAOx3, NAD, obese, hard of hearing HEENT: Anicteric sclerae, EOMI, PERRL CV: RRR no mgr nl S1S2 Pulm: CTAB no wcr Abd: +BS soft NT ND no masses or hernias, obese Ext: No edema, 2+ DP pulses Skin: No rashes, warm/dry Neuro: 3/5 strength throughout the lower extremities, 5/5 strength throughout upper extremities, DTRs diminished but symmetric at 1+ throughout lower extremities, sensation significantly diminished to both light touch and pinprick throughout lower extremities as well as upper extremities to the level of the shoulder, she was able to feel deep pain with pressing my fingers deep into her thigh muscles. Gait was shuffling and assisted with a walker but she was able to bear weight and walk to the bathroom 74-year-old female here with worsening sensory deficit of both bilateral lower extremities as well as upper extremities and weakness in the bilateral lower extremities. Concerning for spinal cord process including transverse myelitis. Discussed the case with neurology and will order stat MRIs of the cervical, thoracic, and lumbar spine with and without contrast. If MRIs are positive for myelitis, recommend high-dose Solu-Medrol as per neurology recommendation Appreciate neurology consultation I have asked the lab to perform her rapid COVID test in-house rather than send out to [facility] as originally planned to expedite the results. Hopefully this is negative. Also added on Lyme titer Appreciate any further neurology input PG Care Time/CCT Total # of Minutes Spent Total Time Spent with Patient: Total time spent is greater than 50% in coordination of care (as documented) at patient's floor/unit and/or counseling patient: Coding Level of Care Code 13199 OBS Care - Level 3 Diagnoses Bilateral leg weakness R29.898 Diabetes type 2, uncontrolled E11.65 Diabetic peripheral neuropathy E11.42 Epilepsy G40.909 Dyslipidemia E78.5 Hypertension I10 Vitamin B12 deficiency E53.8 Vitamin D deficiency E55.9 Hx of cerebral aneurysm repair Z98.890; Z86.79 Loss of memory R41.3 DVT prophylaxis Z29.9
[2019-11-14] MEDS ORDERED: LORazepam 0.5 MG/1 ML VIAL IV STA ×2 (16:21→22:46)
[2019-11-14] MEDS ORDERED: CETIRIZINE HCL 10 MG TABLET PO PRN (18:58)
[2019-11-14] MEDS ORDERED: ALUMINUM/MAGNESIUM/SIMETH (MAALOX MAX) 30 ML UDC PO PRN (18:58)
[2019-11-14] MEDS ORDERED: ACETAMINOPHEN 325 MG TAB PO PRN (18:58)
[2019-11-14] MEDS ORDERED: HYDROCODONE/ACETAMOPHEN 5/325MG TAB PO PRN (18:58)
[2019-11-14] MEDS ORDERED: ACETAMINOPHEN 500 MG TAB PO PRN (18:58)
[2019-11-14] MEDS ORDERED: NITROGLYCERIN SL 0.4 MG/TAB TAB SL PRN (18:58)
[2019-11-14] MEDS ORDERED: CLOTRIMAZOLE 1% CR 15 GM TUBE TOP SCH (18:58)
[2019-11-14] MEDS ORDERED: ONDANSETRON INJ 2 MG/ML 2 ML VIAL IV PRN (18:58)
[2019-11-14] MEDS ORDERED: GLUCOSE 10 TABS/TUBE PO PRN (19:15)
[2019-11-14] MEDS ORDERED: GLUCAGON FOR INJ 1 MG VIAL IM PRN (19:15)
[2019-11-14] MEDS ORDERED: DEXTROSE 50% 50 ML SYRINGE IV PRN (19:15)
[2019-11-14] MEDS ORDERED: GLUCOSE 40% GEL 15 GM TUBE PO PRN (19:15)
[2019-11-14] MEDS ORDERED: CARBOHYDRATES FOR HYPOGLYCEMIA PO PRN (19:15)
[2019-11-14] MEDS ORDERED: LORazepam 0.5 MG TAB PO STA (21:43)
[2019-11-14] MEDS: OXYBUTYNIN CHLORIDE 5 MG TAB PO SCH (21:51)
[2019-11-14] MEDS: TOPIRAMATE 100 MG TAB PO SCH (21:54)
[2019-11-14] MEDS: DOCUSATE SODIUM 100 MG CAP PO SCH (21:54)
[2019-11-14] MEDS: CHOLECALCIFEROL 1,000 UNITS 25 MCG TAB PO SCH (21:54)
[2019-11-14] MEDS: ATORVASTATIN 20 MG TAB PO SCH (21:54)
[2019-11-14] MEDS: PHENYTOIN SODIUM ER 100 MG CAP PO SCH (21:54)
[2019-11-14] MEDS: INSULIN ASPART 100 UNITS/ML 3 ML PEN SQ SCH (21:56)
[2019-11-14] MEDS: INSULIN GLARGINE SOLOSTAR 100 UNITS/ML 3 ML PEN SQ SCH (21:57)
[2019-11-15] MEDS: PREGABALIN 100 MG CAP PO SCH ×3 (00:27→21:55)
[2019-11-15] MEDS ORDERED: LORazepam 0.5 MG/1 ML VIAL IV ONE (04:15)
[2019-11-15] MEDS ORDERED: MoRPHine SULFATE 4 MG/ML 1 ML CARP\\VIAL IV STA (05:14)
[2019-11-15] MEDS ORDERED: GADOBUTROL 65ML VIAL IV ONE (07:37)
--- NOTE | 2019-11-15 07:51 | Magnetic Resonance Report ---
MRI OF THE THORACIC SPINE WITH AND WITHOUT CONTRAST CLINICAL HISTORY: r/o transverse myelitis. Loss of sensation with lower extremities. COMPARISON: None. TECHNIQUE: Utilizing a 1.5 Lucia magnet and dedicated coil, multiplanar, multiecho imaging of the th oracic spine was performed before and after the intravenous administration of 12 cc. FINDINGS: Alignment of the thoracic spine is anatomic. Vertebral body heights are maintained. There i s no marrow edema or marrow replacement. No intracanalicular mass or fluid collection is present. Tho racic cord signal and caliber are normal. There is a small central disc protrusion at T7-T8. This sli ghtly indents the ventral aspect of the cord. There is no cord signal abnormality. There is no thorac ic spine fracture. Large hiatal hernia is incidentally noted. Paravertebral soft tissues are unremark able. No abnormal enhancement within the thoracic canal is noted. IMPRESSION: 1. Normal thoracic cord signal and caliber. 2. No intracanalicular mass or fluid collection. 3. Small central disc protrusion at T7-T8 that slightly indents the ventral aspect of the cord. No co rd signal abnormality. 4. Large hiatal hernia. ACT 112: Negative or not required by law. Electronically signed by: Alejo No M.D. 11/15/2019 7:50 AM
--- NOTE | 2019-11-15 08:06 | Magnetic Resonance Report ---
MR lumbar spine wo/w con CLINICAL HISTORY: 74 years-old Female with r/o transverse myelitis. Acute numbness of the bilateral lower legs COMPARISON: MRI thoracic spine of same day, CT abdomen pelvis 03/01/2019 TECHNIQUE: Multiplanar, multi sequence MRI of the lumbar spine was performed both with and without th e use of 12.0 mL Gadavist FINDINGS: The organ assembler localizer images demonstrate no gross extraspinal abnormality. Possible cyst of the interpo lar left kidney, 1.4 cm. Signal within the imaged thoracic spinal cord appears normal. The conus medu llaris terminates at T12-L1. Cauda equina appear unremarkable. There is no acute fracture, subluxatio n, bone marrow or significant soft tissue edema identified. Trace fluid signal within the L5-S1 disc space is likely on a degenerative basis. 2.4 cm T1 and T2 hyperintense lesion at L5 suggestive of a h emangioma. Mild degenerative enhancement surrounds the L3-L4 and L4-L5 facets. No epidural fluid aldo ections or intracanicular lesion. T12-L1: Mild disc space narrowing and spondylitic spurring with small posterior annular disc bulge. Ligamentum flavum thickening with moderate facet arthrosis. No central canal or foraminal narrowing. L1-L2: Mild disc space narrowing and spondylitic spurring with small posterior annular disc bulge. L igamentum flavum thickening with moderate facet arthrosis. Trace facet effusions. No central canal or foraminal narrowing. L2-L3: Mild disc space narrowing and spondylitic spurring with small posterior annular disc bulge. L igamentum flavum thickening with moderate facet arthrosis and trace right facet effusion. There is mi ld flattening of the ventral thecal sac without significant central canal stenosis. Mild bilateral fo raminal narrowing. L3-L4: Mild disc space narrowing and spondylitic spurring. Tiny posterior annular disc bulge. Ligame ntum flavum thickening with moderate to severe facet arthrosis and trace facet effusions. Central can al is patent. Mild bilateral foraminal narrowing. L4-L5: Mild disc space narrowing and spondylitic spurring. Small posterior annular disc bulge. Ligam entum flavum thickening with severe facet arthrosis and small bilateral facet effusions. Central kun l is patent. There is mild narrowing of the lateral recesses. There is mild to moderate bilateral for aminal narrowing. L5-S1: Mild disc space narrowing and spondylitic spurring. Small posterior annular disc bulge with p robable tiny central disc protrusion. Ligamentum flavum thickening with moderate facet arthrosis and trace facet effusions. Central canal is patent. Mild right foraminal narrowing. The left foramen is p atent. IMPRESSION: 1. Normal signal of the imaged lower thoracic spinal cord, conus medullaris and cauda equina. 2. Mild multilevel disc space narrowing and spondylitic spurring with small annular disc bulges. No s ignificant central canal stenosis. 3. Multilevel facet arthrosis, most pronounced at L4-L5. Mild enhancement surrounding the L3-L4 and L 4-L5 facets is likely on a degenerative basis. 4. Multilevel foraminal narrowing as above. ACT 112: Negative or not required by law. The above report was generated using voice recognition software. It may contain grammatical, syntax o r spelling errors. Electronically signed by: Paulo Guadarrama M.D. 11/15/2019 8:04 AM
--- NOTE | 2019-11-15 08:25 | Magnetic Resonance Report ---
MRI OF THE CERVICAL SPINE WITH AND WITHOUT CONTRAST CLINICAL HISTORY: r/o transverse myelitis. Loss of sensation within lower extremities and lower back. COMPARISON: CT of the cervical spine April 06, 2019. TECHNIQUE: Utilizing a 1.5 Lucia magnet and dedicated coil, multiplanar, multiecho imaging of the ce rvical spine was performed before and after intravenous administration of 12 of Gadavist. FINDINGS: This exam is mildly compromised by motion artifact. Evaluation for cervical cord signal abnormality i s suboptimal on this examination but no cord signal abnormality is noted. There is no intracanalicula r mass or fluid collection. Alignment of the cervical spine is anatomic. Vertebral body heights are m aintained. Paravertebral soft tissues are unremarkable. There is no suspicious marrow replacement. No abnormal enhancement within the canal is noted. Central canal and neural foramen are suboptimally as sessed on this exam. C2-C3: The central canal is patent. There is mild left neural foraminal stenosis. The right neural f oramen is patent. C3-C4: Mild posterior osteophyte complex is noted. This slightly effaces the ventral thecal sac. The re is no significant central canal stenosis at the 6 level. Moderate bilateral neural foraminal steno sis is noted. C4-C5: Posterior disc osteophyte complex is noted. This contacts the ventral aspect of the cord. The re is mild to moderate central canal narrowing. There is moderate bilateral neural foraminal stenosis . C5-C6: Posterior disc osteophyte complex is noted. This contacts the ventral aspect of the cord. Linwood tral canal is difficult to assess on this exam but there is probable moderate central canal stenosis. Moderate to severe bilateral neural foraminal stenosis is noted. C6-C7: There is posterior disc osteophyte complex. Mild central canal narrowing is noted. Moderate t o severe left neural foraminal stenosis is noted. C7-T1: The central canal and neural foramen are patent. IMPRESSION: 1. Exam moderately compromised by motion artifact. Suboptimal evaluation of the cervical cord but no cord signal abnormality identified. 2. Evaluation of the central canal and neural foramen suboptimal on this exam but suspected moderate central canal stenosis at C5-C6 and mild to moderate central canal stenosis at C4-C5. Moderate to se marivel multilevel neural foraminal stenosis, as above. ACT 112: Negative or not required by law. Electronically signed by: Alejo No M.D. 11/15/2019 8:24 AM
[2019-11-15] MEDS: POLYETHYLENE (MIRALAX) 17 GM PACK PO SCH (08:37)
[2019-11-15] MEDS: METOPROLOL SUCC 50MG EXT REL TAB PO SCH (08:38)
[2019-11-15] MEDS: CHOLECALCIFEROL 1,000 UNITS 25 MCG TAB PO SCH ×2 (08:38→22:01)
[2019-11-15] MEDS: INSULIN ASPART 100 UNITS/ML 3 ML PEN SQ SCH ×4 (08:38→22:06)
[2019-11-15] MEDS: PHENYTOIN SODIUM ER 100 MG CAP PO SCH ×2 (08:38→22:02)
[2019-11-15] MEDS: CYANOCOBALAMIN 500 MCG TABLET (VITAMIN B-12) PO SCH (08:38)
[2019-11-15] MEDS: OXYBUTYNIN CHLORIDE 5 MG TAB PO SCH ×2 (08:39→22:01)
[2019-11-15] MEDS: hydroCHLOROthiazide 25 MG TAB PO SCH (08:39)
[2019-11-15] MEDS: VENLAFAXINE HCL XR 150 MG CAPXR PO SCH (08:39)
[2019-11-15] MEDS: MAGNESIUM OXIDE 400 MG TAB PO SCH (08:39)
[2019-11-15] MEDS: ASPIRIN 81 MG ECTAB PO SCH (08:39)
[2019-11-15] MEDS: PANTOprazole 40 MG TAB PO SCH (08:39)
[2019-11-15] MEDS: TOPIRAMATE 100 MG TAB PO SCH ×2 (08:39→22:02)
[2019-11-15] MEDS: dilTIAZem HCL 180 MG CAPCR PO SCH (08:39)
[2019-11-15] MEDS: LOSARTAN POTASSIUM 50 MG TAB PO SCH (08:39)
[2019-11-15 09:16] LABS: Hematocrit (blood only) 43.1 % (37-47); Hemoglobin 14.3 g/dL (12.0-16.0); Mean Corpuscular Hemoglobin 29.2 pg (25-34); Mean Corpuscular Hgb Conc 33.2 g/dL (32-36); Mean Corpuscular Volume 88.1 fL (80-100); Mean Platelet Volume 9.8 fL (7.4-10.4); Platelet Count 305 K/uL (130-400); RDW Coefficient of Variation 14.7 % (11.5-14.5); RDW Standard Deviation 47.7 fL (36.4-46.3); Red Blood Count 4.89 M/uL (4.2-5.4); White Blood Count 7.67 K/uL (4.8-10.8)
[2019-11-15 09:50] LABS: Albumin Level 2.9 gm/dl (3.4-5.0); BUN Creatinine Ratio 15.2 (10-20); Calcium 9.4 mg/dl (8.5-10.1); Creatinine Clr Calc Pharmacy 98.3 ml/min; Est GFR (African American) 103.7; Est GFR (Non-African American) 89.5; Potassium 3.1 mmol/L (3.5-5.1)
[2019-11-15 09:58] LABS: Albumin Globulin Ratio 0.6 (0.9-2); Bilirubin,Total 1.2 mg/dl (0.2-1); Globulin 4.5 gm/dl (2.5-4.0); Total Protein 7.4 gm/dl (6.4-8.2)
[2019-11-15 10:01] LABS: Estimated Average Glucose 148 mg/dl; Hemoglobin A1C 6.8 % (4.5-5.6)
[2019-11-15 10:15] LABS: Lyme Ab IgG w/WB Rflx Negative (Negative)
[2019-11-15 10:18] LABS: Lyme Ab IgM w/WB Rflx Negative (Negative)
[2019-11-15] MEDS ORDERED: POTASSIUM CHLORIDE 20 MEQ TABCR PO STA (10:27)
--- NOTE | 2019-11-15 11:06 | Neurology Consultation ---
Date of Consultation November 15, 2019 Assessment & Plan (1) Ataxia: (2) Tremor: (3) Diabetic peripheral neuropathy: (4) Bilateral leg weakness: This patient has chronic profound sensory loss affecting all 4 limbs likely related to a severe peripheral neuropathy. The etiology of her sho ropathy may be multifactorial and related in part to diabetes mellitus as well as long-term phenytoin exposure. 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 Long-term phenytoin exposure may also be associated with cerebellar ataxia. 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 Her hand weakness may be due to a combination of cervical radiculopathies and carpal tunnel syndrome. Cervical myelopathy not strongly expected given her recent imaging findings and lack of hyperreflexia in the lower limbs although a profound peripheral neuropathy may mask upper motor neuron findings. She does appear to have an incomplete sensory level at C4/5 although this finding is a bit difficult to interpret in the context of what appears to be a chronic severe length dependent polyneuropathy. Again, there is no evidence of myelopathy on imaging. This patient's sensory loss is actually chronic and I doubt she has GBS. Given the possibility of chronic phenytoin toxicity as a potential contributing factor to this patient's neurological status, I would recommend tapering off this medication. Would first reduce the dosage of phenytoin to 100 mg twice daily. Have patient start Keppra 500 mg twice daily as an alternative anticonvulsant. She may continue with topiramate 200 mg twice daily. Plan to discontinue Dilantin altogether in the outpatient setting. Would also recommend completion of an outpatient EMG/NCV to reassess what appears to be a profound peripheral neuropathy. Would also consider repeating her cervical spine MRI, without contrast to reassess her cervical spinal cord as the recent images were suboptimal due to motion artifact. Would also consider obtaining a noncontrast brain MRI as well to evaluate for cerebellar atrophy. There was no evidence of hydrocephalus on her recently completed CT of the head. These additional MRIs could potentially be done in the outpatient setting. Follow-up with results of methylmalonic acid level although her B12 level is within normal limits. Would also check an RPR, serum folate, copper level, vitamin E level, and heavy metal screen. History of Present Illness Reason for Consultation: Peripheral sensory deficit Requesting Physician: Silvia Goodman PA-C Attending Physician: Arturo Yin MD History of Present Illness The patient is a 74-year-old female who presented to the emergency department yesterday complaining of severe leg cramps and weakness which has been getting progressively worse over the past month. She relays a history of chronic profound numbness affecting all 4 limbs that has been present for many years. She has severe difficulty manipulating objects and using her arms and legs as a result of her sensory loss. 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 Patient indicates that she began experiencing seizures in young adulthood. She has previously followed with Dr. Jane Rodriguez in light of her history of seizures although in looking at prior records in [employer] it looks like this diagnosis was not entirely certain. She did have an unremarkable EEG completed in 2015. There were also some concerns regarding Dilantin toxicity in the past. She did have an EMG completed in 2013, with Dr. Spring Martines, that suggested an axonal sensory greater than motor polyneuropathy affecting both the upper and lower limbs. There have also been some previous concerns regarding memory loss, mild to moderate dementia in this patient as well. This patient was last seen in neurology clinic by Leandra Rico, our advanced dye reel operator, in October 2018. Identified issues at that time included diabetic peripheral neuropathy, epilepsy, and essential tremor. In the context of this patient's current presentation, she has undergone fairly thorough neuro imaging including CT of the head as well as MRI of the cervical, thoracic, and lumbar spine. These tests were generally unremarkable in terms of explaining her current presentation to the [facility]. No obvious imaging evidence of myelopathy although the cervical spine MRI was a bit suboptimal. Imaging described in further detail below. Her phenytoin level is within normal limits and she has a normal vitamin B12 level. Additional labs described in f urther detail below. Allergies Allergy/AdvReac Type Severity Reaction Status Date / Time fentanyl Allergy Intermediate HIGH BLOOD Verified 03/01/19 17:42 PRESSURE, SKIN FLUSHED Cephalosporins Allergy Mild RASH Verified 03/01/19 17:42 Penicillins Allergy Mild RASH Verified 03/01/19 17:42 Sulfa (Sulfonamide Allergy Mild ? Verified 03/01/19 17:42 Antibiotics) bee venom protein (honey bee) Allergy Unknown . Verified 03/01/19 17:42 cephalexin Allergy Unknown Rash Verified 03/01/19 17:42 Iodinated Contrast Media Allergy Unknown PASS OUT, Verified 03/01/19 17:42 VOMITING ketorolac Allergy Unknown Unknown Verified 03/01/19 17:42 meperidine Allergy Unknown . Verified 03/01/19 17:42 codeine AdvReac Mild ALTERED Verified 11/15/19 05:16 MENTAL STATUS morphine AdvReac Unknown Nausea Verified 11/15/19 05:16 Home Medications Home Medications Medication Instructions Recorded Confirmed Type atorvastatin 20 mg tablet 20 mg PO HS #30 tab 02/09/19 11/14/19 History cetirizine 10 mg tablet 10 mg PO DAILY PRN tab 02/09/19 11/14/19 History cyanocobalamin (vitamin B-12) 1,000 mcg PO DAILY #30 cap 02/09/19 11/14/19 History 1,000 mcg capsule diltiazem HCl 180 mg 180 mg PO QAM cap 02/09/19 11/14/19 History capsule,extended release 24 hr docusate sodium 100 mg capsule 200 mg PO HS cap 02/09/19 11/14/19 History hydrochlorothiazide 25 mg tablet 25 mg PO QAM tab 02/09/19 11/14/19 History hydrocodone 5 mg-acetaminophen 325 1 tab PO Q6H PRN #30 tab 02/09/19 11/14/19 History mg tablet losartan 50 mg tablet 50 mg PO QAM tab 02/09/19 11/14/19 History magnesium oxide 400 mg (241.3 mg 400 mg PO QAM tab 02/09/19 11/14/19 History magnesium) tablet metformin 500 mg tablet 500 mg PO BID #60 tab 02/09/19 11/14/19 History metoprolol succinate 50 mg 50 mg PO QAM tab 02/09/19 11/14/19 History tablet,extended release 24 hr nitroglycerin 0.4 mg sublingual 0.4 mg SL DIRECTED PRN tab 02/09/19 11/14/19 History tablet pantoprazole 40 mg tablet,delayed 40 mg PO QAM tab 02/09/19 11/14/19 History release pregabalin 100 mg capsule 100 mg PO AMHS cap 02/09/19 11/14/19 History venlafaxine 150 mg 150 mg PO QAM cap 02/09/19 11/14/19 History capsule,extended release 24 hr acetaminophen [Tylenol Extra 500 mg PO Q6H PRN 03/01/19 11/14/19 History Strength] alum-mag hydroxide-simeth [Comfort See Rx Instructions .ROUTE .COMPLEX 03/01/19 11/14/19 History Gel] clotrimazole [Lotrimin AF 1 applic TOPICAL DIRECTED 03/01/19 11/14/19 History (clotrimazole)] insulin aspart U-100 [Novolog See Rx Instructions .ROUTE .COMPLEX 03/01/19 11/14/19 History Flexpen U-100 Insulin] insulin glargine [Lantus U-100 42 unit SUBCUT HS 03/01/19 11/14/19 History Insulin] polyethylene glycol 3350 [Miralax] 17 g PO QAM 03/01/19 11/14/19 History topiramate 200 mg tablet 200 mg PO BID #60 tab 06/05/19 11/14/19 Rx phenytoin sodium extended 100 mg 200 mg PO BID 30 Days #120 cap 08/02/19 11/14/19 Rx capsule aspirin [Aspirin Low Dose] 81 mg PO QAM 11/14/19 11/14/19 History cholecalciferol (vitamin D3) 2,000 unit PO QAM 11/14/19 11/14/19 History [Vitamin D3] cholecalciferol (vitamin D3) 4,000 unit PO QPM 11/14/19 11/14/19 History [Vitamin D3] oxybutynin chloride 5 mg PO BID 11/14/19 11/14/19 History Patient History Medical History Diabetes type 2, uncontrolled Diabetic peripheral neuropathy Dyslipidemia Epilepsy Essential tremor Hypertension Loss of memory Vitamin B12 deficiency Vitamin D deficiency Surgical History Hx of cerebral aneurysm repair S/P adenoidectomy S/P cholecystectomy S/P hysterectomy S/P tonsillectomy S/P umbilical hernia repair, follow-up exam Status post tubal ligation Family History Mother Cancer Father Coronary heart disease Social History Smoking Status: Former smoker Hx Alcohol Use: No Hx Substance Use: No Preferred Language: Syriac Communication Ability: Effective 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: No Beliefs That Will Affect Care: None Current Living Situation: Alone Other Information That Helps Us Care for You: No Feels Safe at Home: Yes Safety Concerns: Feels Safe At This Time Assistive Devices: Walker Review of Systems Constitutional: + fatigue and + weakness; no fever and no chills Eyes: no blind spots and no diplopia Ear, Nose, Mouth, Throat: no ear pain and no hearing loss Respiratory: no cough and no dyspnea Cardiovascular: no chest pain and no palpitations Gastrointestinal: + nausea and + vomiting Genitourinary: no dysuria and no urinary incontinence Musculoskeletal: + back pain and + neck pain; no myalgia Integumentary: no rash and no lesions Neurologic: as per Subjective / HPI, + loss of sensation and + tremor(s); no headache(s) Psychiatric: no depression and no anxiety Hematologic / Lymphatic: no easy bleeding and no easy bruising Exam (Neuro) Constitutional: well developed and well nourished; no acute distress Eyes: normal visual lomas by confrontation, PERRL, normal accommodation and EOM intact bilaterally; no fundoscopic abnormality, no nystagmus and no papilledema Cardiovascular: Vessels: normal carotid upstroke; no carotid bruit Neurologic: Oriented to:: Person, Place and Time Memory: Remote Intact; negative Short Term Intact Attention: Span Intact; negative Concentration Intact Language: Naming Objects and Repeating Phrases Speech Fluency: negative Dysarthria Speech Aphasia: negative Aphasia Fund of Knowledge: Past History and Vocabulary; negative Current Events Cranial Nerves: Normal II (Visual lomas full to confrontation, visual acuity normal), III, IV, (Pupils equal round reactive to light and accommodation, eye movements normal), V (Facial sensation intact), VII (There is no facial droop or weakness), VIII (Hearing intact), IX, X (Palate elevates to midline), XI (Shoulder shrug intact) and XII (Tongue protrudes to midline) Motor Strength: negative Normal Lower Extremities (Bilateral mild foot drops appreciated), Normal Upper Extremities (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 Incomplete sensory level at C4/C5.) Coordination: Normal; negative Limited Balance, Dysdiadochokinesia, Finger-Nose Abnormal and Heel-Sanon Abnormal Deep Tendon Reflexes: Rt Triceps: 1+, Lt Triceps: 1+, Rt Biceps: 1+, Lt Biceps: 1+, Rt Brachioradialis: 1+, Lt Brachioradialis: 1+, Rt Patellar: 0, Lt Patellar: 0, Rt Ankle: 0 and Lt Ankle: 0 Special Tests: negative Babinski Present Details: Gait and station cannot be safely tested in the context of patient's current neurological/medical condition. Results & Data ([facility]) Vital Signs (Past 12 Hours) Vital Signs Temp Pulse Resp BP Pulse Ox Pulse Ox 11/15/19 08:13 36.6 C 85 18 152/72 H 93 11/15/19 00:35 92 11/14/19 23:42 36.8 C 89 18 113/74 92 Laboratory Results WBC 7.67, hemoglobin 14.3, hematocrit 43.1, platelet count 305, MCV 88.1, sodium 142, potassium 3.1, BUN 10, creatinine 0.62, glucose 152, hemoglobin A1c 6.8, calcium 9.4, AST 191, ALT 48, alkaline phosphatase 225, total CK 38, troponin less than 0.015, albumin 2.9, triglycerides 197, cholesterol 165, LDL 72, VLDL 39, HDL 54, vitamin B12 869, methylmalonic acid level pending, vitamin B1 level pending, TSH 1.710, phenytoin 13.4, Lyme antibody screening negative, COVID-[address] of the head reveals postoperative changes consistent with prior left frontotemporal craniotomy and aneurysm clipping within the left sylvian fissure. No acute process. MRI of the cervical spine moderately compromised due to motion artifact although spinal cord itself negative for obvious signal abnormality. There is probable moderate central canal stenosis at C5-6 and mild to moderate central canal stenosis at C4-5 with moderate to severe multilevel neural foraminal stenosis. Thoracic spine MRI reveals a normal-appearing thoracic spinal cord, no associated signal abnormality, there is a small central disc protrusion at C7-8. Lumbar spine MRI reveals mild multilevel disc space narrowing and spondylitic spurs with annular disc bulges, no significant central canal stenosis. There are arthritic changes at the L3-4 and L4-5 facets. I reviewed the images and radiologist interpretation of these tests. An electrocardiogram reveals a sinus rhythm with first-degree AV block, 68 bpm. Coding Level of Care Code 34582 Initial Inpt Care Lvl 3 Diagnoses Ataxia R27.0 Tremor R25.1 Diabetic peripheral neuropathy E11.42 Bilateral leg weakness R29.898
--- NOTE | 2019-11-15 11:33 | Hospitalist Progress Note ---
Date of Service November 15, 2019 Assessment & Plan (1) Bilateral leg weakness: B/L LE on presentation although with diffuse weakness and polyneuropathy * PT/OT consults pending -- please continue while inpatient. Patient lives at home and utilizes wheeled walker at baseline. * Neurology consulted -- appreciate assistance * --> rec outpatient EMG/NCV studies. Could consider repeat cervical spine MRI as were suboptimal due to motion artifact (patient would like to avoid repeat MRI at this time as previous bad experience last evening). Potentially noncontrast brain MRI to evaluate for cerebellar atrophy that can be done outpatient unless other studies unrevealing. * --> also ordered RPR, heavy metal panel, BENJAMIN and other rheumatological labs * Lyme negative * COVID negative * MRIs without evidence of cord impingement * CK 38, TSH 1.44, B12 869, Folate 11.34 all wnl * Of note, patient with hx rashi but now with T bili elevation to 1.2, AST 191, Alk Phos 225 and anorexia/weakness since last wednesday. Triglycerides elevated at 197. Other values on lipid panel wnl. * CTAP with biliary dilation * GI consulted -- wanted to obtain MRCP although patient not keen on going for additional MRI. * --> will trend LFTs, obtain liver viral serologies. Consider EUS outpatient. Added iron studies to see if iron overload. * TSH 1.44 wnl * B12 869 wnl * Will obtain am cortisol ??adrenal insuff * Await results of labs as above (2) Diabetes type 2, uncontrolled: * Continue Lantus 42 units HS * ISS with 6 units at breakfast, 10 units at lunch, 12 units dinner and sliding scale * A1c 6.8, same as Jan 2019 * BSGs acceptable * Continue to monitor (3) Diabetic peripheral neuropathy: * Cont pregabalin, B12 supplementation (4) Epilepsy: * hx of such, continue on phenytoin, level was checked and is 13 --> neurology decreasing this as can be contributory to weakness as well as LFt elevation * Continue topamax 200 mg BID * No seizures in over 1 year * Follows neuro as an outpatient, cannot recall the name, follows in [place], no notes in our system. Has been over 1 year since being there in the office. (5) Dyslipidemia: * Continue atorvastatin 20 mg HS (6) Hypertension: * Cont diltiazem 180 mg Po QAM, HCTZ 25 mg QAM, losartan 50 mg QAM, metoprolol XL 50 mg QAM * BP stable, 143/85 (7) Vitamin B12 deficiency: * B12 wnl. Continue outpatient supplementation (8) Vitamin D deficiency: * Con supplementation (9) Hx of cerebral aneurysm repair: * CT head reviewed: Postoperative changes of prior left frontotemporal craniotomy with aneurysm clipping within the sylvian fissure. Unchanged small area of encephalomalacia involving the left frontal lobe. * Done in 2009 at [facility] [place], will ask HIM and request records. (10) Loss of memory: * has of difficulty with recall of events. * B1 level pending (11) Hypokalemia: * K 3.4 on admission, not replaced. With worsening cramping LE * Down to 3.1 today --> ordered 40meq now * BMP in AM (12) DVT prophylaxis: * Teds Updated daughter, Melissa SHIPLEY, on the phone this afternoon. Admission and Anticipated Discharge Date Admission Date: November 14, 2019 Subjective Patient evaluated this afternoon. States she had a rough night. Ativan not helpful for MRI and received morphine, which is listed as an allergy for nausea, and she remained nauseous and not feeling great all day. No further nausea at this time reported, although she does states when she gets up to be, which is usually with a walker at home, she does have some. She endorses shortness of breath with exertion and that she has difficulty laying flat due to the same. She sleeps in a recliner at the home. Has caregivers from 8a-9p daily. States she has had a poor appetite since this past Wednesday and has not felt like eating much. She denies any abdominal pain or vomiting. No fever reported. Main complaint is generalized malaise as well as lower extremity cramping, right>left. Has not had sensation to her feet in years and had previously been following with Neurology for hx craniotomy 2nd to cerebral aneurysm and had been on Dilantin since that time. Discussed neurology recommendations to decrease this medication and will be obtaining additional lab studies but that I would like her to be evaluated by GI given elevation in her LFT and biliary dilation on imaging. Agreeable at this time. She does note history of rashi but that it has been many years. Discussed plan and results with daughter, Melissa, who is POA. Denies fever, but notes chills, no chest pain, shortness of breath (with excepti on with exertion and PND), abdominal pain, melena, changes in bowels, dysuria at this time. Questions/concerns addressed. Review of Systems Review of Systems: All systems reviewed & are unremarkable except as noted in HPI & below Physical Exam Constitutional: well developed, well nourished and + obese; no acute distress Eyes: + anicteric sclerae and PERRL ENMT: dry mm edentulous Neck: trachea midline, no thyromegaly Respiratory: normal respiratory effort and able to speak in complete sentences; no labored breathing Auscultation: + diminished lung sounds; no wheezes Cardiovascular: Rate/Rhythm: regular rate and regular rhythm Vessels: + JVD (difficult to assess given body habitus) Extremities: no calf tenderness and no edema Gastrointestinal (Abdomen): normal bowel sounds, soft, nontender, no hepatosplenomegaly Musculoskeletal: decreased strength b/l LE, 3/5 mild foot drop noted b/l LE 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 loss of sensation to light touch b/l LE Skin: warm, dry Neurologic: PERRL, EOMI, accommodation nl, no face palsy, no dysarthria decreased DTR, 1+ UE absent reflexes b/l LE Psychiatric: Orientation: alert, oriented to person, oriented to place, oriented to time and cooperative Lymphatic: no cervical or axillary lymphadenopathy Results & Data Results & Data ([facility]) Vital Signs (Past 12 Hours) Vital Signs Temp Pulse Resp BP Pulse Ox Pulse Ox 11/15/19 08:13 36.6 C 85 18 152/72 H 93 11/15/19 00:35 92 11/14/19 23:42 36.8 C 89 18 113/74 92 Laboratory Results 11/15/19 11/15/19 11/15/19 Range/Units 12:21 12:16 12:16 WBC (4.8-10.8) K/uL RBC (4.2-5.4) M/uL Hgb (12.0-16.0) g/dL Hct (37-47) % MCV (80-100) fL MCH (25-34) pg MCHC (32-36) g/dL RDW Std Deviation (36.4-46.3) fL RDW Coeff of Nic (11.5-14.5) % Plt Count (130-400) K/uL MPV (7.4-10.4) fL Sodium (136-145) mmol/L Potassium (3.5-5.1) mmol/L Chloride (98-107) mmol/L Carbon Dioxide (21-32) mmol/L Anion Gap (3-11) BUN (7-18) mg/dl Creatinine (0.6-1.2) mg/dl Est Cr Clr Drug Dosing ml/min Est GFR ( Amer) Est GFR (Non-Af Amer) BUN/Creatinine Ratio (10-20) Glucose (70-99) mg/dl POC Glucose (70-99) mg/dl Estimat Average Glucose mg/dl Hemoglobin A1c (4.5-5.6) % Calcium (8.5-10.1) mg/dl Total Bilirubin (0.2-1) mg/dl AST (15-37) U/L ALT (12-78) U/L Alkaline Phosphatase (45-117) U/L Total Creatine Kinase (26-192) U/L Total Protein (6.4-8.2) gm/dl Albumin (3.4-5.0) gm/dl Globulin (2.5-4.0) gm/dl Albumin/Globulin Ratio (0.9-2) Triglycerides (0-150) mg/dl Cholesterol (0-200) mg/dl LDL Cholesterol, Calc mg/dl VLDL Cholesterol, Calc mg/dl HDL Cholesterol mg/dl Cholesterol/HDL Ratio Whole Bld Vitamin B1 Vitamin B12 (211-911) pg/ml Methylmalonic Acid Alpha-Tocopherol Pending B- and G-Tocopherol Pending Folate (>5.38) ng/ml TSH Arsenic Serum Copper Lead Mercury RPR Pending Anaplasma Smear Lyme Disease IgG Ab (Negative) Lyme Disease IgM Ab (Negative) COVID-19 Eval Order COVID-19 PCR (Negative) Hep Bs Antigen Pending Hepatitis C Antibody Pending SARS-CoV-2 RNA (RT-PCR) 11/15/19 11/15/19 11/15/19 Range/Units 12:16 12:03 11:47 WBC (4.8-10.8) K/uL RBC (4.2-5.4) M/uL Hgb (12.0-16.0) g/dL Hct (37-47) % MCV (80-100) fL MCH (25-34) pg MCHC (32-36) g/dL RDW Std Deviation (36.4-46.3) fL RDW Coeff of Nic (11.5-14.5) % Plt Count (130-400) K/uL MPV (7.4-10.4) fL Sodium (136-145) mmol/L Potassium (3.5-5.1) mmol/L Chloride (98-107) mmol/L Carbon Dioxide (21-32) mmol/L Anion Gap (3-11) BUN (7-18) mg/dl Creatinine (0.6-1.2) mg/dl Est Cr Clr Drug Dosing ml/min Est GFR ( Amer) Est GFR (Non-Af Amer) BUN/Creatinine Ratio (10-20) Glucose (70-99) mg/dl POC Glucose 155 H (70-99) mg/dl Estimat Average Glucose mg/dl Hemoglobin A1c (4.5-5.6) % Calcium (8.5-10.1) mg/dl Total Bilirubin (0.2-1) mg/dl AST (15-37) U/L ALT (12-78) U/L Alkaline Phosphatase (45-117) U/L Total Creatine Kinase (26-192) U/L Total Protein (6.4-8.2) gm/dl Albumin (3.4-5.0) gm/dl Globulin (2.5-4.0) gm/dl Albumin/Globulin Ratio (0.9-2) Triglycerides (0-150) mg/dl Cholesterol (0-200) mg/dl LDL Cholesterol, Calc mg/dl VLDL Cholesterol, Calc mg/dl HDL Cholesterol mg/dl Cholesterol/HDL Ratio Whole Bld Vitamin B1 Vitamin B12 (211-911) pg/ml Methylmalonic Acid Alpha-Tocopherol B- and G-Tocopherol Folate 11.34 (>5.38) ng/ml TSH Arsenic Pending Serum Copper Pending Lead Pending Mercury Pending RPR Anaplasma Smear Lyme Disease IgG Ab (Negative) Lyme Disease IgM Ab (Negative) COVID-19 Eval Order COVID-19 PCR (Negative) Hep Bs Antigen Hepatitis C Antibody SARS-CoV-2 RNA (RT-PCR) 09/23/20 09/23/20 09/23/20 Range/Units 08:48 08:48 08:48 WBC (4.8-10.8) K/uL RBC (4.2-5.4) M/uL Hgb (12.0-16.0) g/dL Hct (37-47) % MCV (80-100) fL MCH (25-34) pg MCHC (32-36) g/dL RDW Std Deviation (36.4-46.3) fL RDW Coeff of Nic (11.5-14.5) % Plt Count (130-400) K/uL MPV (7.4-10.4) fL Sodium (136-145) mmol/L Potassium (3.5-5.1) mmol/L Chloride (98-107) mmol/L Carbon Dioxide (21-32) mmol/L Anion Gap (3-11) BUN (7-18) mg/dl Creatinine (0.6-1.2) mg/dl Est Cr Clr Drug Dosing ml/min Est GFR ( Amer) Est GFR (Non-Af Amer) BUN/Creatinine Ratio (10-20) Glucose (70-99) mg/dl POC Glucose (70-99) mg/dl Estimat Average Glucose 148 mg/dl Hemoglobin A1c 6.8 H (4.5-5.6) % Calcium (8.5-10.1) mg/dl Total Bilirubin (0.2-1) mg/dl AST (15-37) U/L ALT (12-78) U/L Alkaline Phosphatase (45-117) U/L Total Creatine Kinase (26-192) U/L Total Protein (6.4-8.2) gm/dl Albumin (3.4-5.0) gm/dl Globulin (2.5-4.0) gm/dl Albumin/Globulin Ratio (0.9-2) Triglycerides (0-150) mg/dl Cholesterol (0-200) mg/dl LDL Cholesterol, Calc mg/dl VLDL Cholesterol, Calc mg/dl HDL Cholesterol mg/dl Cholesterol/HDL Ratio Whole Bld Vitamin B1 Vitamin B12 (211-911) pg/ml Methylmalonic Acid Alpha-Tocopherol B- and G-Tocopherol Folate (>5.38) ng/ml TSH Arsenic Serum Copper Lead Mercury RPR Anaplasma Smear See Comment Lyme Disease IgG Ab Negative (Negative) Lyme Disease IgM Ab Negative (Negative) COVID-19 Eval Order COVID-19 PCR (Negative) Hep Bs Antigen Hepatitis C Antibody SARS-CoV-2 RNA (RT-PCR) 11/15/19 11/15/19 11/15/19 Range/Units 08:48 08:48 08:09 WBC 7.67 (4.8-10.8) K/uL RBC 4.89 (4.2-5.4) M/uL Hgb 14.3 (12.0-16.0) g/dL Hct 43.1 (37-47) % MCV 88.1 (80-100) fL MCH 29.2 (25-34) pg MCHC 33.2 (32-36) g/dL RDW Std Deviation 47.7 H (36.4-46.3) fL RDW Coeff of Nic 14.7 H (11.5-14.5) % Plt Count 305 (130-400) K/uL MPV 9.8 (7.4-10.4) fL Sodium 142 (136-145) mmol/L Potassium 3.1 L (3.5-5.1) mmol/L Chloride 111 H (98-107) mmol/L Carbon Dioxide 23 (21-32) mmol/L Anion Gap 8.0 (3-11) BUN 10 (7-18) mg/dl Creatinine 0.62 (0.6-1.2) mg/dl Est Cr Clr Drug Dosing 98.3 ml/min Est GFR ( Amer) 103.7 Est GFR (Non-Af Amer) 89.5 BUN/Creatinine Ratio 15.2 (10-20) Glucose 152 H (70-99) mg/dl POC Glucose 149 H (70-99) mg/dl Estimat Average Glucose mg/dl Hemoglobin A1c (4.5-5.6) % Calcium 9.4 (8.5-10.1) mg/dl Total Bilirubin 1.2 H D (0.2-1) mg/dl AST 191 H (15-37) U/L ALT 48 (12-78) U/L Alkaline Phosphatase 225 H (45-117) U/L Total Creatine Kinase (26-192) U/L Total Protein 7.4 (6.4-8.2) gm/dl Albumin 2.9 L (3.4-5.0) gm/dl Globulin 4.5 H (2.5-4.0) gm/dl Albumin/Globulin Ratio 0.6 L (0.9-2) Triglycerides 197 H (0-150) mg/dl Cholesterol 165 (0-200) mg/dl LDL Cholesterol, Calc 72 mg/dl VLDL Cholesterol, Calc 39 mg/dl HDL Cholesterol 54 mg/dl Cholesterol/HDL Ratio 3 Whole Bld Vitamin B1 Vitamin B12 (211-911) pg/ml Methylmalonic Acid Alpha-Tocopherol B- and G-Tocopherol Folate (>5.38) ng/ml TSH Arsenic Serum Copper Lead Mercury RPR Anaplasma Smear Lyme Disease IgG Ab (Negative) Lyme Disease IgM Ab (Negative) COVID-19 Eval Order COVID-19 PCR (Negative) Hep Bs Antigen Hepatitis C Antibody SARS-CoV-2 RNA (RT-PCR) 11/14/19 11/14/19 11/14/19 Range/Units 21:27 19:25 19:25 WBC (4.8-10.8) K/uL RBC (4.2-5.4) M/uL Hgb (12.0-16.0) g/dL Hct (37-47) % MCV (80-100) fL MCH (25-34) pg MCHC (32-36) g/dL RDW Std Deviation (36.4-46.3) fL RDW Coeff of Nic (11.5-14.5) % Plt Count (130-400) K/uL MPV (7.4-10.4) fL Sodium (136-145) mmol/L Potassium (3.5-5.1) mmol/L Chloride (98-107) mmol/L Carbon Dioxide (21-32) mmol/L Anion Gap (3-11) BUN (7-18) mg/dl Creatinine (0.6-1.2) mg/dl Est Cr Clr Drug Dosing ml/min Est GFR ( Amer) Est GFR (Non-Af Amer) BUN/Creatinine Ratio (10-20) Glucose (70-99) mg/dl POC Glucose 156 H (70-99) mg/dl Estimat Average Glucose mg/dl Hemoglobin A1c (4.5-5.6) % Calcium (8.5-10.1) mg/dl Total Bilirubin (0.2-1) mg/dl AST (15-37) U/L ALT (12-78) U/L Alkaline Phosphatase (45-117) U/L Total Creatine Kinase (26-192) U/L Total Protein (6.4-8.2) gm/dl Albumin (3.4-5.0) gm/dl Globulin (2.5-4.0) gm/dl Albumin/Globulin Ratio (0.9-2) Triglycerides (0-150) mg/dl Cholesterol (0-200) mg/dl LDL Cholesterol, Calc mg/dl VLDL Cholesterol, Calc mg/dl HDL Cholesterol mg/dl Cholesterol/HDL Ratio Whole Bld Vitamin B1 Pending Vitamin B12 869 (211-911) pg/ml Methylmalonic Acid Pending Alpha-Tocopherol B- and G-Tocopherol Folate (>5.38) ng/ml TSH Arsenic Serum Copper Lead Mercury RPR Anaplasma Smear Lyme Disease IgG Ab (Negative) Lyme Disease IgM Ab (Negative) COVID-19 Eval Order COVID-19 PCR (Negative) Hep Bs Antigen Hepatitis C Antibody SARS-CoV-2 RNA (RT-PCR) 11/14/19 11/14/19 11/14/19 Range/Units 18:44 18:03 18:03 WBC (4.8-10.8) K/uL RBC (4.2-5.4) M/uL Hgb (12.0-16.0) g/dL Hct (37-47) % MCV (80-100) fL MCH (25-34) pg MCHC (32-36) g/dL RDW Std Deviation (36.4-46.3) fL RDW Coeff of Nic (11.5-14.5) % Plt Count (130-400) K/uL MPV (7.4-10.4) fL Sodium (136-145) mmol/L Potassium (3.5-5.1) mmol/L Chloride (98-107) mmol/L Carbon Dioxide (21-32) mmol/L Anion Gap (3-11) BUN (7-18) mg/dl Creatinine (0.6-1.2) mg/dl Est Cr Clr Drug Dosing ml/min Est GFR ( Amer) Est GFR (Non-Af Amer) BUN/Creatinine Ratio (10-20) Glucose (70-99) mg/dl POC Glucose 105 H (70-99) mg/dl Estimat Average Glucose mg/dl Hemoglobin A1c (4.5-5.6) % Calcium (8.5-10.1) mg/dl Total Bilirubin (0.2-1) mg/dl AST (15-37) U/L ALT (12-78) U/L Alkaline Phosphatase (45-117) U/L Total Creatine Kinase (26-192) U/L Total Protein (6.4-8.2) gm/dl Albumin (3.4-5.0) gm/dl Globulin (2.5-4.0) gm/dl Albumin/Globulin Ratio (0.9-2) Triglycerides (0-150) mg/dl Cholesterol (0-200) mg/dl LDL Cholesterol, Calc mg/dl VLDL Cholesterol, Calc mg/dl HDL Cholesterol mg/dl Cholesterol/HDL Ratio Whole Bld Vitamin B1 Vitamin B12 (211-911) pg/ml Methylmalonic Acid Alpha-Tocopherol B- and G-Tocopherol Folate (>5.38) ng/ml TSH Arsenic Serum Copper Lead Mercury RPR Anaplasma Smear Lyme Disease IgG Ab (Negative) Lyme Disease IgM Ab (Negative) COVID-19 Eval Order COVID-19 PCR NEGATIVE (Negative) Hep Bs Antigen Hepatitis C Antibody SARS-CoV-2 RNA (RT-PCR) Cancelled 11/14/19 11/14/19 Range/Units 18:03 12:28 WBC (4.8-10.8) K/uL RBC (4.2-5.4) M/uL Hgb (12.0-16.0) g/dL Hct (37-47) % MCV (80-100) fL MCH (25-34) pg MCHC (32-36) g/dL RDW Std Deviation (36.4-46.3) fL RDW Coeff of Nic (11.5-14.5) % Plt Count (130-400) K/uL MPV (7.4-10.4) fL Sodium (136-145) mmol/L Potassium (3.5-5.1) mmol/L Chloride (98-107) mmol/L Carbon Dioxide (21-32) mmol/L Anion Gap (3-11) BUN (7-18) mg/dl Creatinine (0.6-1.2) mg/dl Est Cr Clr Drug Dosing ml/min Est GFR ( Amer) Est GFR (Non-Af Amer) BUN/Creatinine Ratio (10-20) Glucose (70-99) mg/dl POC Glucose (70-99) mg/dl Estimat Average Glucose mg/dl Hemoglobin A1c (4.5-5.6) % Calcium (8.5-10.1) mg/dl Total Bilirubin (0.2-1) mg/dl AST (15-37) U/L ALT (12-78) U/L Alkaline Phosphatase (45-117) U/L Total Creatine Kinase 38 (26-192) U/L Total Protein (6.4-8.2) gm/dl Albumin (3.4-5.0) gm/dl Globulin (2.5-4.0) gm/dl Albumin/Globulin Ratio (0.9-2) Triglycerides (0-150) mg/dl Cholesterol (0-200) mg/dl LDL Cholesterol, Calc mg/dl VLDL Cholesterol, Calc mg/dl HDL Cholesterol mg/dl Cholesterol/HDL Ratio Whole Bld Vitamin B1 Vitamin B12 (211-911) pg/ml Methylmalonic Acid Alpha-Tocopherol B- and G-Tocopherol Folate (>5.38) ng/ml TSH Cancelled Arsenic Serum Copper Lead Mercury RPR Anaplasma Smear Lyme Disease IgG Ab (Negative) Lyme Disease IgM Ab (Negative) COVID-19 Eval Order Covid19 Done at [facility] COVID-19 PCR (Negative) Hep Bs Antigen Hepatitis C Antibody SARS-CoV-2 RNA (RT-PCR) Diagnostic Findings Cervical Spine MRI 1. Exam moderately compromised by motion artifact. Suboptimal evaluation of the cervical cord but no cord signal abnormality identified. 2. Evaluation of the central canal and neural foramen suboptimal on this exam but suspected moderate central canal stenosis at C5-C6 and mild to moderate central canal stenosis at C4-C5. Moderate to severe multilevel neural foraminal stenosis, as above. Lumbar Spine MRI IMPRESSION: 1. Normal signal of the imaged lower thoracic spinal cord, conus medullaris and cauda equina. 2. Mild multilevel disc space narrowing and spondylitic spurring with small annular disc bulges. No significant central canal stenosis. 3. Multilevel facet arthrosis, most pronounced at L4-L5. Mild enhancement surrounding the L3-L4 and L4-L5 facets is likely on a degenerative basis. 4. Multilevel foraminal narrowing as above. Thoracic Spine MRI IMPRESSION: 1. Normal thoracic cord signal and caliber. 2. No intracanalicular mass or fluid collection. 3. Small central disc protrusion at T7-T8 that slightly indents the ventral aspect of the cord. No cord signal abnormality. 4. Large hiatal hernia. CTA/P IMPRESSION: 1. No acute process within the abdomen or pelvis on unenhanced exam. 2. No change in dilatation of the common bile duct since prior exams. This is likely related to cholecystectomy however could be correlated with obstructive liver function tests. 3. Moderate sized hiatal hernia. 4. Colonic diverticulosis without evidence for acute diverticulitis. PG Care Time/CCT Total # of Minutes Spent Total Time Spent with Patient: Total time spent is greater than 50% in coordination of care (as documented) at patient's floor/unit and/or counseling patient: Coding Level of Care Code 79308 Subseq Hosp Care Lvl 3 Diagnoses Bilateral leg weakness R29.898 Diabetes type 2, uncontrolled E11.65 Diabetic peripheral neuropathy E11.42 Epilepsy G40.909 Dyslipidemia E78.5 Hypertension I10 Vitamin B12 deficiency E53.8 Vitamin D deficiency E55.9 Hx of cerebral aneurysm repair Z98.890; Z86.79 Loss of memory R41.3 Hypokalemia E87.6 DVT prophylaxis Z29.9
--- NOTE | 2019-11-15 11:57 | CT Scan Report ---
CT OF THE ABDOMEN AND PELVIS WITHOUT CONTRAST CLINICAL HISTORY: b/l weakness, elevated bilirubin/AST/alkaline phosphatase. COMPARISON STUDY: CT of the abdomen and pelvis March 01, 2019. TECHNIQUE: Axial images of the abdomen and pelvis were obtained without IV contrast. Images were revi ewed in the axial, sagittal, and coronal planes. Automated exposure control was utilized for the timothy dy. A dose lowering technique was utilized adhering to the principles of ALARA. FINDINGS: Opacities within the lower lungs favor atelectasis. There is a moderate sized hiatal hernia. No pneum atosis, free air or portal venous gas is present. Moderate dilatation of the common bile duct is unch anged from earlier exams. This is likely related to cholecystectomy. No peripancreatic infiltration i s noted. No hepatic lesions are identified although sensitivity is diminished on this examination. Th e spleen and adrenal glands are unremarkable. There is no hydronephrosis. There is contrast within th e collecting systems and bladder from recent MRI. Several bladder diverticula are noted. There is col onic diverticulosis without evidence for acute diverticulitis. There is no ascites or lymphadenopathy . No mass is noted. No suspicious osseous lesions are noted. The appearance of the abdomen and pelvis is unchanged. IMPRESSION: 1. No acute process within the abdomen or pelvis on unenhanced exam. 2. No change in dilatation of the common bile duct since prior exams. This is likely related to rashi cystectomy however could be correlated with obstructive liver function tests. 3. Moderate sized hiatal hernia. 4. Colonic diverticulosis without evidence for acute diverticulitis. ACT 112: Negative or not required by law. Electronically signed by: Alejo No M.D. 11/15/2019 11:56 AM
--- NOTE | 2019-11-15 14:16 | Electrocardiogram Report ---
Test Reason : Blood Pressure : / mmHG Vent. Rate : 068 BPM Atrial Rate : 068 BPM P-R Int : 226 ms QRS Dur : 156 ms QT Int : 448 ms P-R-T Axes : 072 -31 067 degrees QTc Int : 476 ms Poor data quality, interpretation may be adversely affected Sinus rhythm with 1st degree A-V block Left axis deviation Left bundle branch block Abnormal ECG When compared with ECG of 01-MAR-2019 16:36, QRS duration has increased Confirmed by Adriano Yung ([id number]) on 11/15/2019 2:15:28 PM Referred By: REFERRED SELF Confirmed By:Adriano Yung
[2019-11-15] MEDS: SODIUM CHLORIDE 0.9% 1000ML 1,000 ML IV SCH (15:32)
--- NOTE | 2019-11-15 16:10 | Gastrointestinal Consultation ---
Date of Consultation November 15, 2019 Assessment & Plan (1) Elevated LFTs: (2) Dilated cbd, acquired: Pt is a 74 y/o female seen for elevated LFTs, noted to have dilated CBD on non contrasted CT scan though she is s/p cholecystectomy and dilation was stable compared to previous imaging studies. Benign exam w/o jaundice, abd pain, n/v. DDx for elevated LFTs: biliary obstruction, drug effect (seizure meds), hepatitis. - Obtain serologies to r/o AIH, A1A, viral hepatitis, iron overload - Discussed obtaining MRCP to further eval biliary area however given her body habitus and issues w back pain it's hard for her to lay down on MRI bed and pt refused this. - Consider EUS eval as outpt - Avoid hepatotoxic meds - Trend LFTs History of Present Illness Reason for Consultation: Elevated LFTs Requesting Physician: Dr. Arturo Yin Attending Physician: Dr. Areli Allen History of Present Illness Pt is a 74 y/o female w PMHx of seizure disorder, DM II, peripheral neuropathy, currently admitted w leg weakness, ataxia, followed by Neurology. GI consulted for elevated LFTs: Tbili 1.2, AST 191, ALT 48, Alk phos 225. Lipase normal. CT abd/pelvis showed signs of CBD dilation, s/p cholecystectomy and unchanged from previous exams. No hepatic lesions, no ascites. Pt denies any jaundice, abd pain, n/v, changes in bowel habit symptoms. Mild leg edema. She denies known hx of liver disease, or GI malignancies in family. She denies much uses of APAP at home, no ETOH, tobacco, illicit drugs. No herbal supplements. Allergies Allergy/AdvReac Type Severity Reaction Status Date / Time fentanyl Allergy Intermediate HIGH BLOOD Verified 03/01/19 17:42 PRESSURE, SKIN FLUSHED Cephalosporins Allergy Mild RASH Verified 03/01/19 17:42 Penicillins Allergy Mild RASH Verified 03/01/19 17:42 Sulfa (Sulfonamide Allergy Mild ? Verified 03/01/19 17:42 Antibiotics) bee venom protein (honey bee) Allergy Unknown . Verified 03/01/19 17:42 cephalexin Allergy Unknown Rash Verified 03/01/19 17:42 Iodinated Contrast Media Allergy Unknown PASS OUT, Verified 03/01/19 17:42 VOMITING ketorolac Allergy Unknown Unknown Verified 03/01/19 17:42 meperidine Allergy Unknown . Verified 03/01/19 17:42 codeine AdvReac Mild ALTERED Verified 11/15/19 05:16 MENTAL STATUS morphine AdvReac Unknown Nausea Verified 11/15/19 05:16 Home Medications Home Medications Medication Instructions Recorded Confirmed Type atorvastatin 20 mg tablet 20 mg PO HS #30 tab 02/09/19 11/14/19 History cetirizine 10 mg tablet 10 mg PO DAILY PRN tab 02/09/19 11/14/19 History cyanocobalamin (vitamin B-12) 1,000 mcg PO DAILY #30 cap 02/09/19 11/14/19 History 1,000 mcg capsule diltiazem HCl 180 mg 180 mg PO QAM cap 02/09/19 11/14/19 History capsule,extended release 24 hr docusate sodium 100 mg capsule 200 mg PO HS cap 02/09/19 11/14/19 History hydrochlorothiazide 25 mg tablet 25 mg PO QAM tab 02/09/19 11/14/19 History hydrocodone 5 mg-acetaminophen 325 1 tab PO Q6H PRN #30 tab 02/09/19 11/14/19 History mg tablet losartan 50 mg tablet 50 mg PO QAM tab 02/09/19 11/14/19 History magnesium oxide 400 mg (241.3 mg 400 mg PO QAM tab 02/09/19 11/14/19 History magnesium) tablet metformin 500 mg tablet 500 mg PO BID #60 tab 02/09/19 11/14/19 History metoprolol succinate 50 mg 50 mg PO QAM tab 02/09/19 11/14/19 History tablet,extended release 24 hr nitroglycerin 0.4 mg sublingual 0.4 mg SL DIRECTED PRN tab 02/09/19 11/14/19 History tablet pantoprazole 40 mg tablet,delayed 40 mg PO QAM tab 02/09/19 11/14/19 History release pregabalin 100 mg capsule 100 mg PO AMHS cap 02/09/19 11/14/19 History venlafaxine 150 mg 150 mg PO QAM cap 02/09/19 11/14/19 History capsule,extended release 24 hr acetaminophen [Tylenol Extra 500 mg PO Q6H PRN 03/01/19 11/14/19 History Strength] alum-mag hydroxide-simeth [Comfort See Rx Instructions .ROUTE .COMPLEX 03/01/19 11/14/19 History Gel] clotrimazole [Lotrimin AF 1 applic TOPICAL DIRECTED 03/01/19 11/14/19 History (clotrimazole)] insulin aspart U-100 [Novolog See Rx Instructions .ROUTE .COMPLEX 03/01/19 11/14/19 History Flexpen U-100 Insulin] insulin glargine [Lantus U-100 42 unit SUBCUT HS 03/01/19 11/14/19 History Insulin] polyethylene glycol 3350 [Miralax] 17 g PO QAM 03/01/19 11/14/19 History topiramate 200 mg tablet 200 mg PO BID #60 tab 06/05/19 11/14/19 Rx phenytoin sodium extended 100 mg 200 mg PO BID 30 Days #120 cap 08/02/19 11/14/19 Rx capsule aspirin [Aspirin Low Dose] 81 mg PO QAM 11/14/19 11/14/19 History cholecalciferol (vitamin D3) 2,000 unit PO QAM 11/14/19 11/14/19 History [Vitamin D3] cholecalciferol (vitamin D3) 4,000 unit PO QPM 11/14/19 11/14/19 History [Vitamin D3] oxybutynin chloride 5 mg PO BID 11/14/19 11/14/19 History Patient History Medical History Diabetes type 2, uncontrolled Diabetic peripheral neuropathy Dyslipidemia Epilepsy Essential tremor Hypertension Loss of memory Vitamin B12 deficiency Vitamin D deficiency Surgical History Hx of cerebral aneurysm repair S/P adenoidectomy S/P cholecystectomy S/P hysterectomy S/P tonsillectomy S/P umbilical hernia repair, follow-up exam Status post tubal ligation Family History Mother Cancer Father Coronary heart disease Social History Smoking Status: Former smoker Hx Alcohol Use: No Hx Substance Use: No Preferred Language: Urdu Communication Ability: Effective Special Delivery Mail Carrier Required: No Beliefs That Will Affect Care: None Current Living Situation: Alone Other Information That Helps Us Care for You: No Feels Safe at Home: Yes Safety Concerns: Feels Safe At This Time Assistive Devices: Walker Review of Systems Review of Systems: All systems reviewed & are unremarkable except as noted in HPI & below Physical Exam Constitutional: + morbidly obese, well groomed, cooperative and comfortable Eyes: PERRL, conjunctivae normal, anicteric sclerae ENMT: external ear and nose normal, oropharynx normal Respiratory: normal respiratory effort, lungs clear to auscultation Cardiovascular: RRR, no murmur, no edema Gastrointestinal (Abdomen): normal bowel sounds, soft, nontender, no hepatosplenomegaly Skin: no rashes, warm and dry no jaundice Neurologic: Motor/Sensory: no asterixis resting tremor on hands Psychiatric: A+Ox3, euthymic affect Lymphatic: mild generalized edema on legs Results & Data ([facility]) Vital Signs (Past 12 Hours) Vital Signs Temp Pulse Resp BP Pulse Ox 11/15/19 15:17 36.5 C 81 16 143/85 H 93 11/15/19 08:13 36.6 C 85 18 152/72 H 93
[2019-11-15 17:11] LABS: Hepatitis B Surface Antigen Neg (Neg)
[2019-11-15 17:31] LABS: Ferritin 57.9 ng/ml (8-388)
[2019-11-15 17:40] LABS: Hepatitis C IgG 13Yrs+Old_Rflx Neg (Neg)
[2019-11-15] MEDS: ATORVASTATIN 20 MG TAB PO SCH (22:02)
[2019-11-15] MEDS: DOCUSATE SODIUM 100 MG CAP PO SCH (22:02)
[2019-11-15] MEDS: levETIRAcetam 500 MG TAB PO SCH (22:02)
[2019-11-15] MEDS: INSULIN GLARGINE SOLOSTAR 100 UNITS/ML 3 ML PEN SQ SCH (22:05)
[2019-11-16] MEDS: SODIUM CHLORIDE 0.9% 1000ML 1,000 ML IV SCH (04:21)
[2019-11-16 07:39] LABS: Hematocrit (blood only) 41.8 % (37-47); Hemoglobin 13.2 g/dL (12.0-16.0); Mean Corpuscular Hgb Conc 31.6 g/dL (32-36); Mean Corpuscular Volume 88.7 fL (80-100); Mean Platelet Volume 9.7 fL (7.4-10.4); Platelet Count 301 K/uL (130-400); RDW Standard Deviation 48.7 fL (36.4-46.3); Red Blood Count 4.71 M/uL (4.2-5.4); White Blood Count 6.58 K/uL (4.8-10.8)
[2019-11-16] MEDS: dilTIAZem HCL 180 MG CAPCR PO SCH (07:44)
[2019-11-16] MEDS: LOSARTAN POTASSIUM 50 MG TAB PO SCH (07:45)
[2019-11-16] MEDS: OXYBUTYNIN CHLORIDE 5 MG TAB PO SCH (07:45)
[2019-11-16] MEDS: PHENYTOIN SODIUM ER 100 MG CAP PO SCH (07:45)
[2019-11-16] MEDS: ASPIRIN 81 MG ECTAB PO SCH (07:45)
[2019-11-16] MEDS: levETIRAcetam 500 MG TAB PO SCH (07:46)
[2019-11-16] MEDS: hydroCHLOROthiazide 25 MG TAB PO SCH (07:46)
[2019-11-16] MEDS: VENLAFAXINE HCL XR 150 MG CAPXR PO SCH (07:46)
[2019-11-16] MEDS: PANTOprazole 40 MG TAB PO SCH (07:46)
[2019-11-16] MEDS: MAGNESIUM OXIDE 400 MG TAB PO SCH (07:46)
[2019-11-16] MEDS: POLYETHYLENE (MIRALAX) 17 GM PACK PO SCH (07:46)
[2019-11-16] MEDS: CYANOCOBALAMIN 500 MCG TABLET (VITAMIN B-12) PO SCH (07:47)
[2019-11-16] MEDS: METOPROLOL SUCC 50MG EXT REL TAB PO SCH (07:47)
[2019-11-16] MEDS: TOPIRAMATE 100 MG TAB PO SCH (07:47)
[2019-11-16] MEDS: CHOLECALCIFEROL 1,000 UNITS 25 MCG TAB PO SCH (07:47)
[2019-11-16] MEDS: PREGABALIN 100 MG CAP PO SCH (07:55)
[2019-11-16 08:02] LABS: Albumin Level 2.8 gm/dl (3.4-5.0); BUN Creatinine Ratio 17.8 (10-20); Calcium 9.3 mg/dl (8.5-10.1); Est GFR (African American) 101.1; Est GFR (Non-African American) 87.2; Potassium 3.5 mmol/L (3.5-5.1)
[2019-11-16 08:05] LABS: Albumin Globulin Ratio 0.7 (0.9-2); Bilirubin,Total 0.6 mg/dl (0.2-1); Globulin 4.3 gm/dl (2.5-4.0); Total Protein 7.1 gm/dl (6.4-8.2)
[2019-11-16] MEDS: INSULIN ASPART 100 UNITS/ML 3 ML PEN SQ SCH ×2 (08:38→12:48)
--- NOTE | 2019-11-16 09:08 | Hospitalist Progress Note ---
Date of Service November 16, 2019 Assessment & Plan Admission and Anticipated Discharge Date Admission Date: November 15, 2019 Results & Data Results & Data ([facility]) Vital Signs (Past 12 Hours) Vital Signs Temp Pulse Resp BP Pulse Ox 11/16/19 07:35 37.0 C 68 19 153/71 H 93 11/16/19 01:10 69 15 95 11/15/19 23:06 37.0 C 85 18 116/71 91 Laboratory Results 11/16/19 11/16/19 11/16/19 Range/Units 08:33 07:30 07:30 WBC (4.8-10.8) K/uL RBC (4.2-5.4) M/uL Hgb (12.0-16.0) g/dL Hct (37-47) % MCV (80-100) fL MCH (25-34) pg MCHC (32-36) g/dL RDW Std Deviation (36.4-46.3) fL RDW Coeff of Nic (11.5-14.5) % Plt Count (130-400) K/uL MPV (7.4-10.4) fL Sodium 141 (136-145) mmol/L Potassium 3.5 (3.5-5.1) mmol/L Chloride 110 H (98-107) mmol/L Carbon Dioxide 25 (21-32) mmol/L Anion Gap 6.0 (3-11) BUN 12 (7-18) mg/dl Creatinine 0.67 (0.6-1.2) mg/dl Est Cr Clr Drug Dosing 91.0 ml/min Est GFR ( Amer) 101.1 Est GFR (Non-Af Amer) 87.2 BUN/Creatinine Ratio 17.8 (10-20) Glucose 141 H (70-99) mg/dl POC Glucose 142 H (70-99) mg/dl Estimat Average Glucose mg/dl Hemoglobin A1c (4.5-5.6) % Calcium 9.3 (8.5-10.1) mg/dl Iron (35-150) mcg/dl TIBC (250-450) mcg/dl Transferrin (200-360) mg/dl Transferrin % Sat (15-50) % Ferritin (8-388) ng/ml Total Bilirubin 0.6 D (0.2-1) mg/dl AST 90 H (15-37) U/L ALT 65 (12-78) U/L Alkaline Phosphatase 245 H (45-117) U/L NT-Pro-B Natriuret Pep (0-900) pg/ml Total Protein 7.1 (6.4-8.2) gm/dl Albumin 2.8 L (3.4-5.0) gm/dl Globulin 4.3 H (2.5-4.0) gm/dl Albumin/Globulin Ratio 0.7 L (0.9-2) Yajgs-2-Xhkfgadpotn Ceruloplasmin Triglycerides (0-150) mg/dl Cholesterol (0-200) mg/dl LDL Cholesterol, Calc mg/dl VLDL Cholesterol, Calc mg/dl HDL Cholesterol mg/dl Cholesterol/HDL Ratio Alpha-Tocopherol B- and G-Tocopherol Folate (>5.38) ng/ml Cortisol AM Sample Pending Arsenic Serum Copper Lead Mercury BENJAMIN Screen Anti-Mitochondrial Ab Anti-Smooth Muscle Ab RPR (Nonreactive) Anaplasma Smear Lyme Disease IgG Ab (Negative) Lyme Disease IgM Ab (Negative) Hepatitis A IgM Ab Hep Bs Antigen (Neg) Hep B Core IgM Ab Hepatitis C Antibody (Neg) 11/16/19 11/15/19 11/15/19 Range/Units 07:30 21:05 17:15 WBC 6.58 (4.8-10.8) K/uL RBC 4.71 (4.2-5.4) M/uL Hgb 13.2 (12.0-16.0) g/dL Hct 41.8 (37-47) % MCV 88.7 (80-100) fL MCH 28.0 (25-34) pg MCHC 31.6 L (32-36) g/dL RDW Std Deviation 48.7 H (36.4-46.3) fL RDW Coeff of Nic 15.0 H (11.5-14.5) % Plt Count 301 (130-400) K/uL MPV 9.7 (7.4-10.4) fL Sodium (136-145) mmol/L Potassium (3.5-5.1) mmol/L Chloride (98-107) mmol/L Carbon Dioxide (21-32) mmol/L Anion Gap (3-11) BUN (7-18) mg/dl Creatinine (0.6-1.2) mg/dl Est Cr Clr Drug Dosing ml/min Est GFR ( Amer) Est GFR (Non-Af Amer) BUN/Creatinine Ratio (10-20) Glucose (70-99) mg/dl POC Glucose 130 H 121 H (70-99) mg/dl Estimat Average Glucose mg/dl Hemoglobin A1c (4.5-5.6) % Calcium (8.5-10.1) mg/dl Iron (35-150) mcg/dl TIBC (250-450) mcg/dl Transferrin (200-360) mg/dl Transferrin % Sat (15-50) % Ferritin (8-388) ng/ml Total Bilirubin (0.2-1) mg/dl AST (15-37) U/L ALT (12-78) U/L Alkaline Phosphatase (45-117) U/L NT-Pro-B Natriuret Pep (0-900) pg/ml Total Protein (6.4-8.2) gm/dl Albumin (3.4-5.0) gm/dl Globulin (2.5-4.0) gm/dl Albumin/Globulin Ratio (0.9-2) Eargj-6-Zjjjeyxlmmv Ceruloplasmin Triglycerides (0-150) mg/dl Cholesterol (0-200) mg/dl LDL Cholesterol, Calc mg/dl VLDL Cholesterol, Calc mg/dl HDL Cholesterol mg/dl Cholesterol/HDL Ratio Alpha-Tocopherol B- and G-Tocopherol Folate (>5.38) ng/ml Cortisol AM Sample Arsenic Serum Copper Lead Mercury B[place]JAMIN Screen Anti-Mitochondrial Ab Anti-Smooth Muscle Ab RPR (Nonreactive) Anaplasma Smear Lyme Disease IgG Ab (Negative) Lyme Disease IgM Ab (Negative) Hepatitis A IgM Ab Hep Bs Antigen (Neg) Hep B Core IgM Ab Hepatitis C Antibody (Neg) 11/15/19 11/15/19 11/15/19 Range/Units 16:44 16:44 16:44 WBC (4.8-10.8) K/uL RBC (4.2-5.4) M/uL Hgb (12.0-16.0) g/dL Hct (37-47) % MCV (80-100) fL MCH (25-34) pg MCHC (32-36) g/dL RDW Std Deviation (36.4-46.3) fL RDW Coeff of Nic (11.5-14.5) % Plt Count (130-400) K/uL MPV (7.4-10.4) fL Sodium (136-145) mmol/L Potassium (3.5-5.1) mmol/L Chloride (98-107) mmol/L Carbon Dioxide (21-32) mmol/L Anion Gap (3-11) BUN (7-18) mg/dl Creatinine (0.6-1.2) mg/dl Est Cr Clr Drug Dosing ml/min Est GFR ( Amer) Est GFR (Non-Af Amer) BUN/Creatinine Ratio (10-20) Glucose (70-99) mg/dl POC Glucose (70-99) mg/dl Estimat Average Glucose mg/dl Hemoglobin A1c (4.5-5.6) % Calcium (8.5-10.1) mg/dl Iron 92 (35-150) mcg/dl TIBC 327 (250-450) mcg/dl Transferrin 266 (200-360) mg/dl Transferrin % Sat 24 (15-50) % Ferritin 57.9 (8-388) ng/ml Total Bilirubin (0.2-1) mg/dl AST (15-37) U/L ALT (12-78) U/L Alkaline Phosphatase (45-117) U/L NT-Pro-B Natriuret Pep Cancelled 355 (0-900) pg/ml Total Protein (6.4-8.2) gm/dl Albumin (3.4-5.0) gm/dl Globulin (2.5-4.0) gm/dl Albumin/Globulin Ratio (0.9-2) Bmowy-2-Rpyzqobwuyz Pending Ceruloplasmin Pending Triglycerides (0-150) mg/dl Cholesterol (0-200) mg/dl LDL Cholesterol, Calc mg/dl VLDL Cholesterol, Calc mg/dl HDL Cholesterol mg/dl Cholesterol/HDL Ratio Alpha-Tocopherol B- and G-Tocopherol Folate (>5.38) ng/ml Cortisol AM Sample Arsenic Serum Copper Lead Mercury B[place]AMIN Screen Anti-Mitochondrial Ab Anti-Smooth Muscle Ab RPR (Nonreactive) Anaplasma Smear Lyme Disease IgG Ab (Negative) Lyme Disease IgM Ab (Negative) Hepatitis A IgM Ab Pending Hep Bs Antigen (Neg) Hep B Core IgM Ab Pending Hepatitis C Antibody (Neg) 11/15/19 11/15/19 11/15/19 Range/Units 16:44 12:21 12:16 WBC (4.8-10.8) K/uL RBC (4.2-5.4) M/uL Hgb (12.0-16.0) g/dL Hct (37-47) % MCV (80-100) fL MCH (25-34) pg MCHC (32-36) g/dL RDW Std Deviation (36.4-46.3) fL RDW Coeff of Nic (11.5-14.5) % Plt Count (130-400) K/uL MPV (7.4-10.4) fL Sodium (136-145) mmol/L Potassium (3.5-5.1) mmol/L Chloride (98-107) mmol/L Carbon Dioxide (21-32) mmol/L Anion Gap (3-11) BUN (7-18) mg/dl Creatinine (0.6-1.2) mg/dl Est Cr Clr Drug Dosing ml/min Est GFR ( Amer) Est GFR (Non-Af Amer) BUN/Creatinine Ratio (10-20) Glucose (70-99) mg/dl POC Glucose (70-99) mg/dl Estimat Average Glucose mg/dl Hemoglobin A1c (4.5-5.6) % Calcium (8.5-10.1) mg/dl Iron (35-150) mcg/dl TIBC (250-450) mcg/dl Transferrin (200-360) mg/dl Transferrin % Sat (15-50) % Ferritin (8-388) ng/ml Total Bilirubin (0.2-1) mg/dl AST (15-37) U/L ALT (12-78) U/L Alkaline Phosphatase (45-117) U/L NT-Pro-B Natriuret Pep (0-900) pg/ml Total Protein (6.4-8.2) gm/dl Albumin (3.4-5.0) gm/dl Globulin (2.5-4.0) gm/dl Albumin/Globulin Ratio (0.9-2) Xutin-9-Ezpjpiguxha Ceruloplasmin Triglycerides (0-150) mg/dl Cholesterol (0-200) mg/dl LDL Cholesterol, Calc mg/dl VLDL Cholesterol, Calc mg/dl HDL Cholesterol mg/dl Cholesterol/HDL Ratio Alpha-Tocopherol Pending B- and G-Tocopherol Pending Folate (>5.38) ng/ml Cortisol AM Sample Arsenic Serum Copper Lead Mercury B[place]AMIN Screen Pending Anti-Mitochondrial Ab Pending Anti-Smooth Muscle Ab Pending RPR (Nonreactive) Anaplasma Smear Lyme Disease IgG Ab (Negative) Lyme Disease IgM Ab (Negative) Hepatitis A IgM Ab Hep Bs Antigen Neg (Neg) Hep B Core IgM Ab Hepatitis C Antibody Neg (Neg) 11/15/19 11/15/19 11/15/19 Range/Units 12:16 12:16 12:03 WBC (4.8-10.8) K/uL RBC (4.2-5.4) M/uL Hgb (12.0-16.0) g/dL Hct (37-47) % MCV (80-100) fL MCH (25-34) pg MCHC (32-36) g/dL RDW Std Deviation (36.4-46.3) fL RDW Coeff of Nic (11.5-14.5) % Plt Count (130-400) K/uL MPV (7.4-10.4) fL Sodium (136-145) mmol/L Potassium (3.5-5.1) mmol/L Chloride (98-107) mmol/L Carbon Dioxide (21-32) mmol/L Anion Gap (3-11) BUN (7-18) mg/dl Creatinine (0.6-1.2) mg/dl Est Cr Clr Drug Dosing ml/min Est GFR ( Amer) Est GFR (Non-Af Amer) BUN/Creatinine Ratio (10-20) Glucose (70-99) mg/dl POC Glucose (70-99) mg/dl Estimat Average Glucose mg/dl Hemoglobin A1c (4.5-5.6) % Calcium (8.5-10.1) mg/dl Iron (35-150) mcg/dl TIBC (250-450) mcg/dl Transferrin (200-360) mg/dl Transferrin % Sat (15-50) % Ferritin (8-388) ng/ml Total Bilirubin (0.2-1) mg/dl AST (15-37) U/L ALT (12-78) U/L Alkaline Phosphatase (45-117) U/L NT-Pro-B Natriuret Pep (0-900) pg/ml Total Protein (6.4-8.2) gm/dl Albumin (3.4-5.0) gm/dl Globulin (2.5-4.0) gm/dl Albumin/Globulin Ratio (0.9-2) Btbdm-5-Gwpsbeutoih Ceruloplasmin Triglycerides (0-150) mg/dl Cholesterol (0-200) mg/dl LDL Cholesterol, Calc mg/dl VLDL Cholesterol, Calc mg/dl HDL Cholesterol mg/dl Cholesterol/HDL Ratio Alpha-Tocopherol B- and G-Tocopherol Folate 11.34 (>5.38) ng/ml Cortisol AM Sample Arsenic Pending Serum Copper Pending Lead Pending Mercury Pending BEN[place]AMIN Screen Anti-Mitochondrial Ab Anti-Smooth Muscle Ab RPR Nonreactive (Nonreactive) Anaplasma Smear Lyme Disease IgG Ab (Negative) Lyme Disease IgM Ab (Negative) Hepatitis A IgM Ab Hep Bs Antigen (Neg) Hep B Core IgM Ab Hepatitis C Antibody (Neg) 11/15/19 11/15/19 11/15/19 Range/Units 11:47 08:48 08:48 WBC (4.8-10.8) K/uL RBC (4.2-5.4) M/uL Hgb (12.0-16.0) g/dL Hct (37-47) % MCV (80-100) fL MCH (25-34) pg MCHC (32-36) g/dL RDW Std Deviation (36.4-46.3) fL RDW Coeff of Nic (11.5-14.5) % Plt Count (130-400) K/uL MPV (7.4-10.4) fL Sodium (136-145) mmol/L Potassium (3.5-5.1) mmol/L Chloride (98-107) mmol/L Carbon Dioxide (21-32) mmol/L Anion Gap (3-11) BUN (7-18) mg/dl Creatinine (0.6-1.2) mg/dl Est Cr Clr Drug Dosing ml/min Est GFR ( Amer) Est GFR (Non-Af Amer) BUN/Creatinine Ratio (10-20) Glucose (70-99) mg/dl POC Glucose 155 H (70-99) mg/dl Estimat Average Glucose mg/dl Hemoglobin A1c (4.5-5.6) % Calcium (8.5-10.1) mg/dl Iron (35-150) mcg/dl TIBC (250-450) mcg/dl Transferrin (200-360) mg/dl Transferrin % Sat (15-50) % Ferritin (8-388) ng/ml Total Bilirubin (0.2-1) mg/dl AST (15-37) U/L ALT (12-78) U/L Alkaline Phosphatase (45-117) U/L NT-Pro-B Natriuret Pep (0-900) pg/ml Total Protein (6.4-8.2) gm/dl Albumin (3.4-5.0) gm/dl Globulin (2.5-4.0) gm/dl Albumin/Globulin Ratio (0.9-2) Vcbkq-3-Ectpzxejgsq Ceruloplasmin Triglycerides (0-150) mg/dl Cholesterol (0-200) mg/dl LDL Cholesterol, Calc mg/dl VLDL Cholesterol, Calc mg/dl HDL Cholesterol mg/dl Cholesterol/HDL Ratio Alpha-Tocopherol B- and G-Tocopherol Folate (>5.38) ng/ml Cortisol AM Sample Arsenic Serum Copper Lead Mercury [place] Screen Anti-Mitochondrial Ab Anti-Smooth Muscle Ab RPR (Nonreactive) Anaplasma Smear See Comment Lyme Disease IgG Ab Negative (Negative) Lyme Disease IgM Ab Negative (Negative) Hepatitis A IgM Ab Hep Bs Antigen (Neg) Hep B Core IgM Ab Hepatitis C Antibody (Neg) 11/15/19 11/15/19 11/15/19 Range/Units 08:48 08:48 08:48 WBC 7.67 (4.8-10.8) K/uL RBC 4.89 (4.2-5.4) M/uL Hgb 14.3 (12.0-16.0) g/dL Hct 43.1 (37-47) % MCV 88.1 (80-100) fL MCH 29.2 (25-34) pg MCHC 33.2 (32-36) g/dL RDW Std Deviation 47.7 H (36.4-46.3) fL RDW Coeff of Nic 14.7 H (11.5-14.5) % Plt Count 305 (130-400) K/uL MPV 9.8 (7.4-10.4) fL Sodium 142 (136-145) mmol/L Potassium 3.1 L (3.5-5.1) mmol/L Chloride 111 H (98-107) mmol/L Carbon Dioxide 23 (21-32) mmol/L Anion Gap 8.0 (3-11) BUN 10 (7-18) mg/dl Creatinine 0.62 (0.6-1.2) mg/dl Est Cr Clr Drug Dosing 98.3 ml/min Est GFR ( Amer) 103.7 Est GFR (Non-Af Amer) 89.5 BUN/Creatinine Ratio 15.2 (10-20) Glucose 152 H (70-99) mg/dl POC Glucose (70-99) mg/dl Estimat Average Glucose 148 mg/dl Hemoglobin A1c 6.8 H (4.5-5.6) % Calcium 9.4 (8.5-10.1) mg/dl Iron (35-150) mcg/dl TIBC (250-450) mcg/dl Transferrin (200-360) mg/dl Transferrin % Sat (15-50) % Ferritin (8-388) ng/ml Total Bilirubin 1.2 H D (0.2-1) mg/dl AST 191 H (15-37) U/L ALT 48 (12-78) U/L Alkaline Phosphatase 225 H (45-117) U/L NT-Pro-B Natriuret Pep (0-900) pg/ml Total Protein 7.4 (6.4-8.2) gm/dl Albumin 2.9 L (3.4-5.0) gm/dl Globulin 4.5 H (2.5-4.0) gm/dl Albumin/Globulin Ratio 0.6 L (0.9-2) Olgti-1-Azbfrkjueoj Ceruloplasmin Triglycerides 197 H (0-150) mg/dl Cholesterol 165 (0-200) mg/dl LDL Cholesterol, Calc 72 mg/dl VLDL Cholesterol, Calc 39 mg/dl HDL Cholesterol 54 mg/dl Cholesterol/HDL Ratio 3 Alpha-Tocopherol B- and G-Tocopherol Folate (>5.38) ng/ml Cortisol AM Sample Arsenic Serum Copper Lead Mercury [place] Screen Anti-Mitochondrial Ab Anti-Smooth Muscle Ab RPR (Nonreactive) Anaplasma Smear Lyme Disease IgG Ab (Negative) Lyme Disease IgM Ab (Negative) Hepatitis A IgM Ab Hep Bs Antigen (Neg) Hep B Core IgM Ab Hepatitis C Antibody (Neg) PG Care Time/CCT Total # of Minutes Spent Total Time Spent with Patient: Total time spent is greater than 50% in coordination of care (as documented) at patient's floor/unit and/or counseling patient: Coding
--- NOTE | 2019-11-16 10:15 | Gastroenterology Progress Note ---
Date of Service November 16, 2019 Assessment & Plan (1) Elevated LFTs: (2) Dilated cbd, acquired: Pt is a 74 y/o female seen for elevated LFTs, noted to have dilated CBD on non contrasted CT scan though she is s/p cholecystectomy and dilation was stable compared to previous imaging studies. Benign exam w/o jaundice, abd pain, n/v. DDx for elevated LFTs: biliary obstruction, drug effect (seizure meds), hepatitis. - F/U serologies to r/o AIH, A1A, viral hepatitis, iron overload - Discussed obtaining MRCP to further eval biliary area however given her body habitus and issues w back pain it's hard for her to lay down on MRI bed and pt refused this. - Consider EUS eval as outpt - Avoid hepatotoxic meds - Trend LFTs (improving) - Discussed the above with pt's daughter, Melissa, over the phone Admission and Anticipated Discharge Date Admission Date: November 15, 2019 Subjective Pt feels well, denies abd pain, n/v, tolerating solids this AM. Is passing flatu s, no BMs today yet LFTs decreasing Review of Systems Review of Systems: All systems reviewed & are unremarkable except as noted in HPI & below Physical Exam Constitutional: + morbidly obese, well groomed, cooperative and comfortable Eyes: PERRL, conjunctivae normal, anicteric sclerae ENMT: external ear and nose normal, oropharynx normal Respiratory: normal respiratory effort, lungs clear to auscultation Cardiovascular: RRR, no murmur, no edema Gastrointestinal (Abdomen): normal bowel sounds, soft, nontender, no hepatosplenomegaly Skin: no rashes, warm and dry no jaundice Neurologic: Motor/Sensory: no asterixis Psychiatric: A+Ox3, euthymic affect Results & Data ([facility]) Vital Signs (Past 12 Hours) Vital Signs Temp Pulse Resp BP Pulse Ox 11/16/19 07:35 37.0 C 68 19 153/71 H 93 11/16/19 01:10 69 15 95 11/15/19 23:06 37.0 C 85 18 116/71 91
--- NOTE | 2019-11-16 13:37 | Discharge Summary ---
Date of Service November 16, 2019 Admission HPI Per Admitting Provider This is a 74-year-old female with PMHx of seizure disorder on phenytoin, hx of cerebral aneurysm s/p craniotomy and clipping, DM type II, HTN, HLD, peripheral neuropathy, morbid obesity with BMI of 50.4, essential tremor, vitamin B12 and vitamin D deficiencies, who presents with acute onset of bilateral lower extremity weakness, numbness, and pain. Patient notes that the leg weakness has been going on for approximately 1 month. Today she got up from her lift reclining chair in the living room and walked to the bathroom with a walker, use the toilet and was able to stand back up and on her walk back to the recliner felt that her legs became extremely stiff. She denies lightheadedness, dizziness, pain or difficulty moving the legs. She was able to make it back to the chair and sat down and leg pain and stiffness eventually resolved. She reports that she does follow with neurology but it has been over a year since being seen there. Her PCP fills phenytoin prescriptions when needed. She did take all of her routinely scheduled medications this morning but cannot recall dosing as a visiting nurse does this for her on a weekly basis. Pt lives at home by herself but has caregivers from 8 AM to 9 PM and on a daily basis. Daughter who is present at bedside reports that she was exposed to a known COVID positive patient who is 1 of her caregivers. She just finished 14 d quarantine about 1 week ago, where she did not receive any of her routine PT/OT therapy or visiting nurses. Here in the ER patient does not appear to have any infectious etiology, UA negative, CT the head negative, no white blood cell count, afebrile. We will admit for PT/OT consults and evaluation of the spine. Admission Exam Per Admitting Provider General: awake, alert, no apparent distress, + Morbidly obese, BMI 50.4 Head: Normocephalic, atraumatic ENT: PERRL, EOMI, no pharyngeal exudate, mucous membranes moist, + endentulous Chest: Clear to auscultation, on room air with O2 sats at 97-98%, no adventitious breath sounds Cardiac: Regular rate and rhythm, +soft systolic murmur, JVD unable to be assessed due to body habitus, normal peripheral pulses, good capillary refill Abdominal: NABS x 4 quadrants, soft, nondistended, nontender to palpation, no rebound or guarding Extremities: Normal inspection, no peripheral edema or erythema, calfs nontender to palpation Psych: Normal mood and affect Neuro: AAO x 3, CN II-XII assessed and grossly intact, strength intact bilaterally and rated 3/5 in BLE, 4/5 in BUE, unable to do heel to starr testing due to limited mobility and diminished strength. Speech is clear, with positive peripheral sensory deficits to pinprick and light touch throughout bilateral lower extremities throughout. Principal Diagnosis Weakness, Severe Peripheral Neuropathy, Dehydration Discharge Exam Constitutional well developed, well nourished and + obese; no acute distress Eyes + anicteric sclerae and PERRL Neck trachea midline, no thyromegaly Respiratory normal respiratory effort and able to speak in complete sentences; no labored breathing Auscultation: + diminished lung sounds; no wheezes Cardiovascular Rate/Rhythm: regular rate and regular rhythm Vessels: no JVD (difficult to assess given body habitus) Extremities: no calf tenderness and no edema Gastrointestinal (Abdomen) normal bowel sounds, soft, nontender, no hepatosplenomegaly Musculoskeletal decreased strength b/l LE, 3/5 mild foot drop noted b/l LE decreased hold worker strength b/l UE loss of sensation to light touch b/l LE Skin warm, dry Neurologic PERRL, EOMI, accommodation nl, no face palsy, no dysarthria Psychiatric Orientation: alert, oriented to person, oriented to place, oriented to time and cooperative some difficulty with short term recall Lymphatic no cervical or axillary lymphadenopathy Discharge Data Allergies Allergy/AdvReac Type Severity Reaction Status Date / Time fentanyl Allergy Intermediate HIGH BLOOD Verified 03/01/19 17:42 PRESSURE, SKIN FLUSHED Cephalosporins Allergy Mild RASH Verified 03/01/19 17:42 Penicillins Allergy Mild RASH Verified 03/01/19 17:42 Sulfa (Sulfonamide Allergy Mild ? Verified 03/01/19 17:42 Antibiotics) bee venom protein (honey bee) Allergy Unknown . Verified 03/01/19 17:42 cephalexin Allergy Unknown Rash Verified 03/01/19 17:42 Iodinated Contrast Media Allergy Unknown PASS OUT, Verified 03/01/19 17:42 VOMITING ketorolac Allergy Unknown Unknown Verified 03/01/19 17:42 meperidine Allergy Unknown . Verified 03/01/19 17:42 codeine AdvReac Mild ALTERED Verified 11/15/19 05:16 MENTAL STATUS morphine AdvReac Unknown Nausea Verified 11/15/19 05:16 Consultations 11/14/19 14:52 ED Decision to Admit Stat 11/14/19 17:56 Consult Neurology Routine 11/14/19 18:58 Consult Case Management - Discharge Planning Routine Consult Health Information Management Stat 11/15/19 13:59 Consult Gastroenterology Routine Ordered Studies 11/14/19 12:09 CT head/brain wo con Stat CXR 11/15/19 02:21 MR cervical spine wo/w con Stat MR lumbar spine wo/w con Stat MR thoracic spine wo/w con Stat 11/15/19 11:15 CT abd pelvis wo con Routine Hospital Course (1) Bilateral leg weakness: B/L LE on presentation although with diffuse weakness and polyneuropathy. Neurology consulted MRIs obtained of cervical thoracic, lumbar spine -- no evidence of cord involvement. Could consider repeat MRI cervical spine outpatient as patient denied repeat MRIs at this time due to claustrophobia Rec'd potentially noncontrast brain MRI to evaluate for cerebellar atrophy that can be done outpatient unless other studies unrevealing Decreased phenytoin to 100mg BID and initiated on Keppra --> follow up with Neurology scheduled for wednesday as well as EMG/NCV studies for polyneuropathy, longstanding Heavy metal, RPR, BENJAMIN and other rheumatological labs pending at discharge Lyme, Anaplasmosis negative. COVID negative CK 38, TSH 1.44, B12 869, Folate 11.34 all wnl. Cortisol wnl. B12 wnl. MMA pending GI consulted for elevation of tbili during admission and stable biliary dilation compared to previous studies which did normalize (pt with hx lap rashi) --> Recommended MRCP but again patient refused at this time. Consider outpatient EUS at discretion of PCP as discussed with patient and her daughter Melissa who is POA. Viral serologies pending, iron studies ok. PT/OT consults with rec for return home. Improved mobility with correction of her hypokalemia. (2) Diabetes type 2, uncontrolled: A1c 6.8 BSGs with SSI while inpatient BSG acceptable Continued outpatient medications at discharge Follow up with [facility] as previously followed (3) Diabetic peripheral neuropathy: Continued pregabalin, B12 supplementation. B12 wnl. (4) Epilepsy: hx of such, continue on phenytoin, level was checked and is 13 --> neurology decreasing this as can be contributory to weakness as well as LFt elevation Continued topamax 200 mg BID. No seizures in over 1 year Follows neuro as an outpatient --> set up appt for wednesday (5) Dyslipidemia: Continued atorvastatin 20 mg HS. (6) Hypertension: Cont diltiazem 180 mg Po QAM, HCTZ 25 mg QAM, losartan 50 mg QAM, metoprolol XL 50 mg QAM BP stable (7) Vitamin B12 deficiency: B12 wnl. Cont outpatient supplementation (8) Vitamin D deficiency: Con supplementation (9) Hx of cerebral aneurysm repair: CT head reviewed: Postoperative changes of prior left frontotemporal craniotomy with aneurysm clipping within the sylvian fissure. Unchanged small area of encephalomalacia involving the left frontal lobe. Done in 2009 at [facility] (10) Loss of memory: has of difficulty with recall of events. B1 level pending (11) Hypokalemia: K 3.4 on admission, not replaced and down to 3.1 with worsening cramping/weakness Given replacement and repeat K 3.5 with patient with significant improvement As patient on HCTZ 25mg, she may need additional K supplementation outpatient if unable to keep up with dietary sources (12) DVT prophylaxis: Teds while inpatient Total Time Total Time Spent Total Time Spent (In Minutes): 90 Discharge Plan Discharge Items Patient Disposition: Home - Self-Care Reason For Visit: BLE WEAKNESS, PAIN Discharge Diagnosis: Bilateral Weakness Goals: You have been hospitalized for an acute medical problem. During your stay at [facility], we have made an effort to correct the problem that brought you to the hospital while keeping you as comfortable as possible. Medications were used to bring your condition under control and your discharge instructions will include directions for any medications you should take after leaving the hospital. Please make sure you see your Primary Care Provider as part of your follow up plan. Activity: Resume your previous activity Non-emergency contact: Primary Care Provider Call non-emergency contact if: you have any medication questions, your symptoms worsen and your pain is worsening Follow-up/Referrals: Lavelle Webb MD [Physician] - 11/20/19 1:00 pm (An appointment has been made for you with Dr. Webb for testing for your neuropathy. The appointment is on at 1:00pm.) Margarito Al [Primary Care Provider] - 11/20/19 5:00 pm Anselmo Snyder PA-C [Physician Sc[employer] Stripper [employer]] - 12/06/19 11:30 am (1-2 weeks) Diet: Carb Consistent or DM2 and Heart Healthy Addtl Attending Provider Instructions: You have been hospitalized for weakness and dehydration. You were treated with IV fluids and your potassium was replaced with improvement of these symptoms. Neurology was consulted and have decreased your seizure medications as follows to help with weakness: * Dilantin ER decreased from 200mg twice daily to --> 100mg by mouth TWICE daily In the interim you have been started on the following that is less likely to cause this and may be further titrated during your follow up appointment with Dr. Webb: * Levetiracetam (Keppra) 500mg by mouth TWICE daily Prescriptions for these medications have been sent to your pharmacy and you should utilize the home pill pack in the future as already discussed. Imaging of your spine was performed and did not show involvement of your spinal cord, although imaging of your cervical spine was less than optimal and should consider repeat if symptoms persist/worsen in the future for further evaluation at discretion of your primary care provider. Lyme was negative. Anaplasmosis negative. COVID-19 negative. With regards to your neuropathy, Neurology has recommended nerve studies and you have been set up for this appointment on November 19 at 1:00pm. Please keep this appointment as scheduled. You should also follow up with your feed preparation operator for further management of your Diabetes. You have most recently been followed by phone with Dr. Snyder and should contact their office for appointment. Your A1c was 6.8 and has been controlled while inpatient. Please continue your diabetic regimen at home and continue to check your blood sugars and notify your provider for any levels frequently above 180 or below 70. Please follow up with your primary care provider in the next week to monitor your progress. You should further discuss repeat liver function tests in the future, as your bilirubin was elevated and you had dilation in your biliary tract (gallbladder/liver related) which was unchanged from previous studies. G iven lack of GI complaints and normalization of bilirubin, you can consider outpatient EUS with GI at request of your PCP. You may also want to discuss repeating your electrolyte panel to see if you may benefit from potassium supplementation if unable to obtain adequate from dietary sources alone. *You also have been ordered hepatitis serologies and several other lab studies are still pending at discharge and should be followed up on. Please return to the emergency department with any worsening weakness, inability to keep up with oral intake, or for any other symptoms that are concerning for you. It has been a pleasure being a part of the medical team providing for you while you have been in the hospital. Take care! Pending Studies at Discharge: Yes Studies:: BENJAMIN, Anti-mitochondrial Ab, Anti-smooth muscle ab, arsenic, serum copper, lead, mercury Stand-Alone Forms: My [facility] [employer], Smoking Cessation Medications and DC Order Prescriptions: New levetiracetam [Keppra] 500 mg Tablet 500 mg PO BID 30 Days Qty: 60 RF: 0 phenytoin sodium extended [Dilantin Extended] 100 mg Capsule 100 mg PO BID 30 Days Qty: 60 RF: 0 Continued topiramate [Topamax] 200 mg tablet 200 mg PO BID Qty: 60 RF: 4 atorvastatin 20 mg tablet 20 mg PO HS Qty: 30 RF: 0 cetirizine 10 mg tablet 10 mg PO DAILY PRN (Reason: Allergy Symptoms) RF: 0 cyanocobalamin (vitamin B-12) 1,000 mcg capsule 1,000 mcg PO DAILY Qty: 30 RF: 0 diltiazem HCl 180 mg capsule,extended release 24hr 180 mg PO QAM RF: 0 docusate sodium 100 mg capsule 200 mg PO HS RF: 0 hydrochlorothiazide 25 mg tablet 25 mg PO QAM RF: 0 hydrocodone-acetaminophen 5-325 mg tablet 1 tab PO Q6H PRN (Reason: Pain) Qty: 30 RF: 0 losartan 50 mg tablet 50 mg PO QAM RF: 0 magnesium oxide 400 mg (241.3 mg magnesium) tablet 400 mg PO QAM RF: 0 pregabalin 100 mg capsule 100 mg PO AMHS RF: 0 venlafaxine 150 mg capsule,extended release 24hr 150 mg PO QAM RF: 0 pantoprazole 40 mg tablet,delayed release (DR/EC) 40 mg PO QAM RF: 0 nitroglycerin 0.4 mg tablet, sublingual 0.4 mg SL DIRECTED PRN (Reason: Chest Pain) RF: 0 metoprolol succinate 50 mg tablet extended release 24 hr 50 mg PO QAM RF: 0 metformin 500 mg tablet 500 mg PO BID Qty: 60 RF: 0 Lantus U-100 Insulin 100 unit/mL solution 42 unit SUBCUT HS RF: 0 polyethylene glycol 3350 [Miralax] 17 gram Powder In Packet 17 g PO QAM RF: 0 acetaminophen [Tylenol Extra Strength] 500 mg Tablet 500 mg PO Q6H PRN (Reason: Pain) RF: 0 alum-mag hydroxide-simeth [Comfort Gel] 200-200-20 mg/5 mL Suspension See Rx Instructions .ROUTE .COMPLEX RF: 0 clotrimazole [Lotrimin AF (clotrimazole)] 1 % Cream 1 applic TOPICAL DIRECTED RF: 0 insulin aspart U-100 [Novolog Flexpen U-100 Insulin] 100 unit/mL (3 mL) insulin pen See Rx Instructions .ROUTE .COMPLEX RF: 0 aspirin [Aspirin Low Dose] 81 mg Tablet,Delayed Release (Dr/Ec) 81 mg PO QAM RF: 0 cholecalciferol (vitamin D3) [Vitamin D3] 50 mcg (2,000 unit) Capsule 2,000 unit PO QAM RF: 0 cholecalciferol (vitamin D3) [Vitamin D3] 50 mcg (2,000 unit) Capsule 4,000 unit PO QPM RF: 0 oxybutynin chloride 5 mg tablet 5 mg PO BID RF: 0 Discontinued phenytoin sodium extended 100 mg capsule 200 mg PO BID 30 Days Qty: 120 RF: 2 Discharge Orders: Discharge Order (Routine); Ordered 11/16/19 Ordered By: Laxmi Pierce/Other Patient Handouts: Stroke and Heart Disease, Controlling High Blood Pressure, Low-Salt Choices, Anatomy of the Brain, Vitamin and Mineral Supplements, Dizziness Balance Probs Fainting, Hyperkalemia Dc, Discharge Instructions for Hypokalemia, Preventing Falls Moving Safely ..., Exercises to Prevent Falls, Preventing Falls How to Prepare ..., Eating Heart-Healthy Foods, Vitamin B-12 Admission Data Admit Date/Time: 11/15/19 14:40 Attending Provider: Arturo Yin Admit Provider: Betty Estrella Primary Care Provider: Margarito Al Other Providers: Lavelle Webb ; Betty Estrella ; Areli Allen Other Interventions: Discharge Summary Assessment (RN) Last Done: 11/16/19 15:17 Coding Level of Care Code D/C Day Management >30 mins Diagnoses Bilateral leg weakness R29.898 Diabetes type 2, uncontrolled E11.65 Diabetic peripheral neuropathy E11.42 Epilepsy G40.909 Dyslipidemia E78.5 Hypertension I10 Vitamin B12 deficiency E53.8 Vitamin D deficiency E55.9 Hx of cerebral aneurysm repair Z98.890; Z86.79 Loss of memory R41.3 Hypokalemia E87.6 DVT prophylaxis Z29.9
[2019-11-17 10:31] LABS: Alpha 1 Antitrypsin 175 mg/dL (83-199); Ceruloplasmin 42 mg/dL (18-53); Hepatitis A Antibody IgM NON-REACTIVE (NON-REACTIVE); Hepatitis B Core Antibody IgM NON-REACTIVE (NON-REACTIVE)
[2019-11-17 15:21] LABS: Anti Nuclear Antibody Screen NEGATIVE (NEGATIVE); Smooth Muscle Antibody NEGATIVE (NEGATIVE)
[2019-11-18 01:16] LABS: Arsenic Blood <3 mcg/L (<23); Copper, Serum 157 mcg/dL (70-175); Lead Blood <1 mcg/dL (<5); Mercury, blood <4 mcg/L (<=10)
[2019-11-20 12:41] LABS: Methylmalonic Acid 169 nmol/L (87-318)
[2019-11-21 19:46] LABS: Alpha-Tocopherol 10.1 mg/L (5.7-19.9); Vitamin E Beta-Gam Tocopherol 3.2 mg/L (<=4.3)
== END 2019-11-16 15:55 | disposition home or self-care (01) | DRG 74 ==
LOC: ED 11:27 → 3W 11:27 → SUATTDRO 16:12 → 3W 18:29

== ENCOUNTER 2020-03-06 14:08 | Inpatient (IN) ==
[2020-03-06 14:40] LABS: Hematocrit (blood only) 39.8 % (37-47); Hemoglobin 13.1 g/dL (12.0-16.0); Mean Corpuscular Hemoglobin 27.2 pg (25-34); Mean Corpuscular Hgb Conc 32.9 g/dL (32-36); Mean Corpuscular Volume 82.7 fL (80-100); Mean Platelet Volume 10.3 fL (7.4-10.4); Platelet Count 310 K/uL (130-400); RDW Coefficient of Variation 15.3 % (11.5-14.5); RDW Standard Deviation 46.6 fL (36.4-46.3); Red Blood Count 4.81 M/uL (4.2-5.4); White Blood Count 8.68 K/uL (4.8-10.8)
[2020-03-06 14:56] LABS: Basophils # (auto) 0.01 K/uL (0-0.2); Basophils % (auto) 0.1 %; Eosinophils # (auto) 0.11 K/uL (0-0.5); Eosinophils % (auto) 1.3 %; Immature Granulocytes # (auto) 0.01 K/uL (0.00-0.02); Immature Granulocytes % (auto) 0.1 %; Lymphocytes # (auto) 1.12 K/uL (1.2-3.4); Lymphocytes % (auto) 12.9 %; Monocytes # (auto) 1.05 K/uL (0.11-0.59); Monocytes % (auto) 12.1 %; Neutrophils # (auto) 6.38 K/uL (1.4-6.5); Neutrophils % (auto) 73.5 %
--- NOTE | 2020-03-06 14:57 | XRay Report ---
XR chest 1V portable CLINICAL HISTORY: Cough and shortness of breath COMPARISON STUDY: 02/24/2020 FINDINGS: The heart is enlarged. There is mild interstitial thickening. Subtle airspace opacities are suspected the left lung base and right infrahilar region. There is a large retrocardiac opacity cons istent with a hiatal hernia.[ IMPRESSION: 1. Cardiomegaly 2. Large hiatal hernia 3. Subtle interstitial thickening with suspected subtle basilar airspace opacities. Diagnostic consid erations include a multifocal infectious/inflammatory processes versus mild pulmonary vascular conges tion with basilar atelectasis/edema. Clinical and radiographic follow-up is recommended. ACT 112: Negative or not required by law. Electronically signed by: Britton Butler M.D. 03/06/2020 2:55 PM
[2020-03-06 14:58] LABS: Creatinine Clr Calc Pharmacy 31.2 ml/min; Est GFR (African American) 28.7; Est GFR (Non-African American) 24.8; Potassium 3.5 mmol/L (3.5-5.1)
[2020-03-06 15:01] LABS: Albumin Globulin Ratio 0.7 (0.9-2); Bilirubin,Total 0.6 mg/dl (0.2-1); Globulin 4.3 gm/dl (2.5-4.0); Total Protein 7.3 gm/dl (6.4-8.2)
[2020-03-06] MEDS ORDERED: SODIUM CHLORIDE 0.9% 1000ML 1,000 ML IV ONE (15:20)
[2020-03-06] MEDS ORDERED: DEXAMETHASONE SOD INJ 10 MG/ML VIAL IV ONE (15:21)
--- NOTE | 2020-03-06 15:27 | Emergency Department Note ---
Impression & Plan COVID-19, Hypoxic, HANNAH (acute kidney injury) ED Provider Note NAME: MARCO A BRAVO AGE: 74 SEX: F : 1945 ARRIVES VIA: Ambulance INFORMANT: Patient ED PROVIDER(S): Slick Mata DO CHIEF COMPLAINT: Shortness of breath HPI: Patient is a 74-year-old female who presents ER for shortness of breath which has been present for the past week. She also notes worsening of her cough. Typically has a cough but has been worse than usual. Denies any runny nose but admits to a sore throat which has resolved. Denies any chest pain or belly pain. No nausea, vomiting or diarrhea. She notes that she just does not feel like eating. Denies any dysuria, urgency or frequency. No other exacerbating or remitting factors. She was tested for Covid earlier today and became weak and was found to be hypoxic and was referred into the ER. ROS: See above HPI for pertinent positives & negatives. A total of 10 systems reviewed and were otherwise negative. PAST MEDICAL HISTORY:See Below PAST SURGICAL HISTORY:See Below FAMILY HISTORY:See Below SOCIAL HISTORY:See Below HOME MEDICATIONS:See Below ALLERGIES:See Below VITALS:See Below PHYSICAL EXAMINATION: GENERAL: Sitting up in bed, alert, chronically ill-appearing on 2 L nasal cannula EYE EXAM: normal conjunctiva. PERRL and EOM's grossly intact. OROPHARYNX: Dry mucous membranes NECK: supple, no nuchal rigidity, no adenopathy, non-tender LUNGS: Diminished at the bases. Normal chest wall mechanics HEART: no murmurs, S1 normal and S2 normal ABDOMEN: abdomen soft, non-tender, normo-active bowel sounds, no masses, no rebound or guarding. UPPER EXTREMITIES: upper extremities are grossly normal. LOWER EXTREMITIES: Right calf slightly larger than left NEURO EXAM: Normal sensorium, cranial nerves II-XII grossly intact, normal speech, no gross weakness of arms, no gross weakness of legs. MEDICAL DECISION MAKING: Patient is a 74-year-old female who presents the ER for feeling weak and short of breath and was found to be hypoxic. She has not been eating and drinking. IV was established blood work was obtained. Labs show no significant leukocytosis or anemia. D-dimer was elevated at 520 but was unable to perform CT angio due to the acute kidney injury with a creatinine of 1.96 off of baseline 0.7. Troponin was negative. Covid was positive. Patient was given fluids and IV Decadron. She was updated bedside. She was remained on nasal cannula throughout her stay in the ER was admitted to the hospitalist for further work-up. She was not given antibiotics as she was not febrile. Chest x-ray does support bilateral infiltrates. Triage Nursing notes reviewed. Limited review of prior medical records performed Vital Signs: reviewed and remarkable for hypoxic Differential diagnosis: Differential diagnoses includes but is not limited to pneumonia, bronchitis, COPD/Asthma exacerbation, pneumothorax, pulmonary embolism, congestive heart failure, acute coronary syndrome ER treatment provided: See below Diagnostics interpreted by me: ECG: Sinus rhythm bradycardia rate of 57 Left axis First-degree AV block Left bundle branch block Nonspecific ST wave changes in the high lateral leads Cardiac Monitoring: An order was placed for continuous cardiac monitoring. The monitor shows a rate of 60 with sinus rhythm. Laboratory studies: As stated above and show below. Imaging studies: Portable AP upright 1 view of the chest shows bilateral opacities in lower lung lomas Consultation(s): Discussed with hospitalist for further evaluation Procedures: none Critical Care: I have personally spent 31 minutes of critical care time in the direct management of this patient. This includes bedside care, interpretation of diagnostic studies, and testing, discussion with consultants, patient, and family members, and other required patient management activities. This 31 minutes is in excess of all separately billable procedures. Past Med/Surg History Medical History Diabetic peripheral neuropathy Dyslipidemia Epilepsy Essential tremor Hypertension Loss of memory Obesity T2DM (type 2 diabetes mellitus) Vitamin B12 deficiency Vitamin D deficiency Surgical History Hx of cerebral aneurysm repair S/P adenoidectomy S/P cholecystectomy S/P hysterectomy S/P tonsillectomy S/P umbilical hernia repair, follow-up exam Status post tubal ligation Family History Mother Cancer Father Coronary heart disease Social History Smoking Status: Never smoker Hx Alcohol Use: No Hx Substance Use: No Preferred Language: Occitan Communication Ability: Effective Manager Garage Required: No Beliefs That Will Affect Care: None Current Living Situation: Alone Feels Safe at Home: Yes Assistive Devices: Walker Allergies Allergies Allergy/AdvReac Type Severity Reaction Status Date / Time fentanyl Allergy Intermediate HIGH BLOOD Verified 02/24/20 18:55 PRESSURE, SKIN FLUSHED Cephalosporins Allergy Mild RASH Verified 02/24/20 18:55 Penicillins Allergy Mild RASH Verified 02/24/20 18:55 Sulfa (Sulfonamide Allergy Mild ? Verified 02/24/20 18:55 Antibiotics) bee venom protein (honey bee) Allergy Unknown . Verified 02/24/20 18:55 cephalexin Allergy Unknown Rash Verified 02/24/20 18:55 Iodinated Contrast Media Allergy Unknown PASS OUT, Verified 02/24/20 18:55 VOMITING ketorolac Allergy Unknown Unknown Verified 02/24/20 18:55 meperidine Allergy Unknown . Verified 02/24/20 18:55 codeine AdvReac Mild ALTERED Verified 02/24/20 18:55 MENTAL STATUS morphine AdvReac Unknown Nausea Verified 12/06/19 11:16 Home Meds Home Medications Medication Instructions Recorded Confirmed atorvastatin 20 mg tablet 20 mg PO HS #30 tab 02/09/19 03/06/20 cetirizine 10 mg tablet 10 mg PO DAILY PRN tab 02/09/19 03/06/20 cyanocobalamin (vitamin B-12) 1,000 mcg PO DAILY #30 cap 02/09/19 03/06/20 1,000 mcg capsule diltiazem HCl 180 mg 180 mg PO QAM cap 02/09/19 03/06/20 capsule,extended release 24 hr docusate sodium 100 mg capsule 200 mg PO HS cap 02/09/19 03/06/20 hydrochlorothiazide 25 mg tablet 25 mg PO QAM tab 02/09/19 03/06/20 losartan 50 mg tablet 50 mg PO QAM tab 02/09/19 03/06/20 magnesium oxide 400 mg (241.3 mg 400 mg PO QAM tab 02/09/19 03/06/20 magnesium) tablet metformin 500 mg tablet 500 mg PO BID #60 tab 02/09/19 03/06/20 metoprolol succinate 50 mg 50 mg PO QAM tab 02/09/19 03/06/20 tablet,extended release 24 hr nitroglycerin 0.4 mg sublingual 0.4 mg SL DIRECTED PRN tab 02/09/19 03/06/20 tablet pantoprazole 40 mg tablet,delayed 40 mg PO QAM tab 02/09/19 03/06/20 release venlafaxine 150 mg 150 mg PO QAM cap 02/09/19 03/06/20 capsule,extended release 24 hr acetaminophen [Tylenol Extra 500 mg PO Q6H PRN 03/01/19 03/06/20 Strength] clotrimazole [Lotrimin AF 1 applic TOPICAL DIRECTED 03/01/19 03/06/20 (clotrimazole)] insulin aspart U-100 [Novolog See Rx Instructions .ROUTE .COMPLEX 03/01/19 03/06/20 Flexpen U-100 Insulin] polyethylene glycol 3350 [Miralax] 17 g PO QAM 03/01/19 03/06/20 aspirin [Aspirin Low Dose] 81 mg PO QAM 11/14/19 03/06/20 cholecalciferol (vitamin D3) 2,000 unit PO QAM 11/14/19 03/06/20 [Vitamin D3] oxybutynin chloride 5 mg PO BID 11/14/19 03/06/20 insulin glargine 100 unit/mL 45 unit SUBCUT HS ml 12/06/19 03/06/20 subcutaneous solution levetiracetam 500 mg PO BID 02/24/20 03/06/20 Previous Rx's Medication Instructions Recorded pregabalin 150 mg capsule 150 mg PO BID 30 Days #60 cap 12/04/19 Results & Data (ED) Vital Signs Vital Signs - 24 hr 03/06/20 14:14 03/06/20 14:48 03/06/20 15:32 Temperature 36.7 C Temperature Source Oral Pulse Rate 61 69 Pulse Rate from SpO2 Sensor Respiratory Rate 13 17 Respiratory Effort / Characteristics Non-Labored Respiratory Depth Normal Respiratory Pattern Regular Blood Pressure 108/65 96/55 L Blood Pressure Mean 79 70 Blood Pressure Position Sitting Pulse Oximetry 85 L 95 95 Oxygen Delivery Method Room Air Nasal Cannula Nasal Cannula Oxygen Flow Rate 2 2 Sepsis Recent Fever Within 48 Hours No Sepsis New/Unexplained Change in Mental Status No Sepsis Action Taken by Nursing No Action Required 03/06/20 16:01 03/06/20 16:17 03/06/20 17:00 Temperature Temperature Source Pulse Rate 56 L 66 69 Pulse Rate from SpO2 Sensor 55 L 67 67 Respiratory Rate 18 20 18 Respiratory Effort / Characteristics Respiratory Depth Respiratory Pattern Blood Pressure 98/56 L 100/51 L Blood Pressure Mean 60 72 Blood Pressure Position Pulse Oximetry 95 93 95 Oxygen Delivery Method Nasal Cannula Nasal Cannula Nasal Cannula Oxygen Flow Rate 2 2 2 Sepsis Recent Fever Within 48 Hours Sepsis New/Unexplained Change in Mental Status Sepsis Action Taken by Nursing 03/06/20 17:30 03/06/20 17:47 Temperature Temperature Source Pulse Rate 61 70 Pulse Rate from SpO2 Sensor 61 69 Respiratory Rate 15 18 Respiratory Effort / Characteristics Respiratory Depth Respiratory Pattern Blood Pressure 114/57 L Blood Pressure Mean 91 Blood Pressure Position Pulse Oximetry 95 95 Oxygen Delivery Method Nasal Cannula Nasal Cannula Oxygen Flow Rate 2 2 Sepsis Recent Fever Within 48 Hours Sepsis New/Unexplained Change in Mental Status Sepsis Action Taken by Nursing Laboratory Data Result diagrams: 03/06/20 14:28 03/06/20 14:28 Lab Results 03/06/20 03/06/20 03/06/20 Range/Units 14:28 14:28 14:28 WBC 8.68 (4.8-10.8) K/uL RBC 4.81 (4.2-5.4) M/uL Hgb 13.1 (12.0-16.0) g/dL Hct 39.8 (37-47) % MCV 82.7 (80-100) fL MCH 27.2 (25-34) pg MCHC 32.9 (32-36) g/dL RDW Std Deviation 46.6 H (36.4-46.3) fL RDW Coeff of Nic 15.3 H (11.5-14.5) % Plt Count 310 (130-400) K/uL MPV 10.3 (7.4-10.4) fL Immature Gran % (Auto) 0.1 % Neut % (Auto) 73.5 % Lymph % (Auto) 12.9 % Foster % (Auto) 12.1 % Eos % (Auto) 1.3 % Baso % (Auto) 0.1 % Neut # (Auto) 6.38 (1.4-6.5) K/uL Lymph # (Auto) 1.12 L (1.2-3.4) K/uL Foster # (Auto) 1.05 H (0.11-0.59) K/uL Eos # (Auto) 0.11 (0-0.5) K/uL Baso # (Auto) 0.01 (0-0.2) K/uL Immature Gran # (Auto) 0.01 (0.00-0.02) K/uL D-Dimer 520 H* (0-500) ug/L FEU Sodium 132 L (136-145) mmol/L Potassium 3.5 (3.5-5.1) mmol/L Chloride 96 L (98-107) mmol/L Carbon Dioxide 28 (21-32) mmol/L Anion Gap 8.0 (3-11) BUN 26 H (7-18) mg/dl Creatinine 1.96 H (0.6-1.2) mg/dl Est Cr Clr Drug Dosing 31.2 ml/min Est GFR ( Amer) 28.7 Est GFR (Non-Af Amer) 24.8 BUN/Creatinine Ratio 13.0 (10-20) Glucose 110 H (70-99) mg/dl Calcium 9.0 (8.5-10.1) mg/dl Total Bilirubin 0.6 (0.2-1) mg/dl AST 24 (15-37) U/L ALT 19 (12-78) U/L Alkaline Phosphatase 110 (45-117) U/L Troponin I (0-0.045) ng/ml NT-Pro-B Natriuret Pep (0-900) pg/ml Total Protein 7.3 (6.4-8.2) gm/dl Albumin 3.0 L (3.4-5.0) gm/dl Globulin 4.3 H (2.5-4.0) gm/dl Albumin/Globulin Ratio 0.7 L (0.9-2) COVID-19 Eval Order SARS-CoV-2 (PCR) (Negative) Influenza Type A (PCR) (Neg) Influenza Type B (PCR) (Neg) RSV (RT-PCR) (Neg) 03/06/20 03/06/20 03/06/20 Range/Units 14:28 15:35 15:35 WBC (4.8-10.8) K/uL RBC (4.2-5.4) M/uL Hgb (12.0-16.0) g/dL Hct (37-47) % MCV (80-100) fL MCH (25-34) pg MCHC (32-36) g/dL RDW Std Deviation (36.4-46.3) fL RDW Coeff of Nic (11.5-14.5) % Plt Count (130-400) K/uL MPV (7.4-10.4) fL Immature Gran % (Auto) % Neut % (Auto) % Lymph % (Auto) % Foster % (Auto) % Eos % (Auto) % Baso % (Auto) % Neut # (Auto) (1.4-6.5) K/uL Lymph # (Auto) (1.2-3.4) K/uL Foster # (Auto) (0.11-0.59) K/uL Eos # (Auto) (0-0.5) K/uL Baso # (Auto) (0-0.2) K/uL Immature Gran # (Auto) (0.00-0.02) K/uL D-Dimer (0-500) ug/L FEU Sodium (136-145) mmol/L Potassium (3.5-5.1) mmol/L Chloride (98-107) mmol/L Carbon Dioxide (21-32) mmol/L Anion Gap (3-11) BUN (7-18) mg/dl Creatinine (0.6-1.2) mg/dl Est Cr Clr Drug Dosing ml/min Est GFR ( Amer) Est GFR (Non-Af Amer) BUN/Creatinine Ratio (10-20) Glucose (70-99) mg/dl Calcium (8.5-10.1) mg/dl Total Bilirubin (0.2-1) mg/dl AST (15-37) U/L ALT (12-78) U/L Alkaline Phosphatase (45-117) U/L Troponin I (0-0.045) ng/ml NT-Pro-B Natriuret Pep 163 (0-900) pg/ml Total Protein (6.4-8.2) gm/dl Albumin (3.4-5.0) gm/dl Globulin (2.5-4.0) gm/dl Albumin/Globulin Ratio (0.9-2) COVID-19 Eval Order CovFluRsv at [facility] SARS-CoV-2 (PCR) POSITIVE A* (Negative) Influenza Type A (PCR) Negative (Neg) Influenza Type B (PCR) Negative (Neg) RSV (RT-PCR) Negative (Neg) 03/06/20 Range/Units 15:37 WBC (4.8-10.8) K/uL RBC (4.2-5.4) M/uL Hgb (12.0-16.0) g/dL Hct (37-47) % MCV (80-100) fL MCH (25-34) pg MCHC (32-36) g/dL RDW Std Deviation (36.4-46.3) fL RDW Coeff of Nic (11.5-14.5) % Plt Count (130-400) K/uL MPV (7.4-10.4) fL Immature Gran % (Auto) % Neut % (Auto) % Lymph % (Auto) % Foster % (Auto) % Eos % (Auto) % Baso % (Auto) % Neut # (Auto) (1.4-6.5) K/uL Lymph # (Auto) (1.2-3.4) K/uL Foster # (Auto) (0.11-0.59) K/uL Eos # (Auto) (0-0.5) K/uL Baso # (Auto) (0-0.2) K/uL Immature Gran # (Auto) (0.00-0.02) K/uL D-Dimer (0-500) ug/L FEU Sodium (136-145) mmol/L Potassium (3.5-5.1) mmol/L Chloride (98-107) mmol/L Carbon Dioxide (21-32) mmol/L Anion Gap (3-11) BUN (7-18) mg/dl Creatinine (0.6-1.2) mg/dl Est Cr Clr Drug Dosing ml/min Est GFR ( Amer) Est GFR (Non-Af Amer) BUN/Creatinine Ratio (10-20) Glucose (70-99) mg/dl Calcium (8.5-10.1) mg/dl Total Bilirubin (0.2-1) mg/dl AST (15-37) U/L ALT (12-78) U/L Alkaline Phosphatase (45-117) U/L Troponin I < 0.015 (0-0.045) ng/ml NT-Pro-B Natriuret Pep (0-900) pg/ml Total Protein (6.4-8.2) gm/dl Albumin (3.4-5.0) gm/dl Globulin (2.5-4.0) gm/dl Albumin/Globulin Ratio (0.9-2) COVID-19 Eval Order SARS-CoV-2 (PCR) (Negative) Influenza Type A (PCR) (Neg) Influenza Type B (PCR) (Neg) RSV (RT-PCR) (Neg) Administered Medications Discontinued Medications Dexamethasone (Dexamethasone Sod Inj 10 Mg/Ml Vial) 8 mg IV NOW ONE Stop: 03/06/20 15:22 Last Admin: 03/06/20 15:28 Dose: 8 mg Documented by: [id number] Sodium Chloride (Nss 1000ml) 1,000 mls @ 999 mls/hr IV .[id number] ONE Stop: 03/06/20 16:20 Last Infusion: 03/06/20 16:33 Dose: 0 mls/hr Documented by: [id number] Admin: 03/06/20 15:32 Dose: 999 mls/hr Documented by: [id number] Discharge Plan Visit Data Chief Complaint: Illness Stated Complaint: ALOC ED Provider: Slick Mata Discharge Problem: COVID-19, Hypoxic, HANNAH (acute kidney injury) Discharge Instructions Interventions: ED Discharge Assessment Last Done: 03/06/20 19:55
[2020-03-06 15:49] LABS: D Dimer 520 ug/L FEU (0-500)
[2020-03-06 16:30] LABS: Influenza A virus by PCR Negative (Neg); Influenza B virus by PCR Negative (Neg); RSV by PCR Negative (Neg)
[2020-03-06 16:36] LABS: SARS CoV2 RNA(COVID-19) InHosp POSITIVE (Negative)
--- NOTE | 2020-03-06 16:59 | History & Physical Report ---
Date of Service March 06, 2020 Assessment & Plan (1) COVID-19: Patient began with symptoms on 02/29/2020 and has had fevers, headache, poor appetite with poor p.o. intake, shortness of breath and cough. She contracted Covid-19 from caregivers to come to the house. Presented with hypoxia and acute kidney injury with multifocal pneumonia on admission. D-dimer is only minimally elevated at 520, do not suspect PE -Admit to medical floor with telemetry -Continue supplemental O2 to keep pulse ox greater than 92% -Start dexamethasone 6 mg IV once daily x10-day course -Not a good candidate for remdesivir at this time given acute kidney injury-can consider starting tomorrow if renal function improves -Discussed convalescent plasma with the patient and her daughter-daughter would like to hold off on this at this time and this is fine as it likely will not have much benefit at this point anyway -Encourage deep breathing and out of bed to chair as able to -Follow CBC, CMP (2) Hypoxic: Secondary to Covid-19 pneumonia as above With acute respiratory failure with hypoxia O2, pulmonary toilet (3) HANNAH (acute kidney injury): With creatinine up to 1.96 on admission from baseline of 0.7 This is prerenal secondary to poor p.o. intake and dehydration from Covid-19 Continue hydration with normal saline at 75 mL's per hour Follow BMP in the morning Renally dose medications Holding home HCTZ and losartan as well as Metformin (4) Hyponatremia: Secondary to dehydration Continue normal saline follow BMP in the morning (5) T2DM (type 2 diabetes mellitus): Hemoglobin A1c 6.8% in 10/2019 Follow A1c in the morning Insulin sliding scale with NovoLog Hold home metformin Continue Lantus but lower to 40 units at bedtime as she is taking minimal p.o. at this time Accu-Cheks before every meal and at bedtime Diabetic diet Glycemic consult placed (6) Vitamin D deficiency: Continue home vitamin D (7) Vitamin B12 deficiency: Continue home p.o. vitamin B12 supplement (8) Dyslipidemia: Continue home statin (9) Diabetic peripheral neuropathy: Continue Lyrica-although caution with renal dosing-May need to reduce the dose if renal function worsens (10) Epilepsy: No recent seizures Continue home Keppra, Dilantin, Lyrica (11) Essential tremor: Noted Continue beta-gigi (12) Hypertension: Blood pressures are controlled Continue home metoprolol and diltiazem Holding home losartan and HCTZ for acute kidney injury (13) Loss of memory: Mild Supportive care Watch for delirium (14) DVT prophylaxis: Lovenox 40 mg SQ twice daily Disposition-admit to medical floor with telemetry now, expected least a 2 midnight stay PT/OT consultations placed I discussed all of her care with her daughter who is her HC POA on the phone She is a conditional code-does not want to be on a ventilator at all even during cardiac arrest, but is okay with CPR and medications otherwise during ACLS History of Present Illness Chief Complaint: Shortness of breath, fatigue Primary Care Provider: Margarito Al This patient is a 74-year-old female with a history of seizure disorder, cerebral aneurysm status post craniotomy and clipping, DM 2, HTN, hyperlipidemia, peripheral neuropathy, morbid obesity, essential tremor, vitamin B12 and vitamin D deficiencies, and mild cognitive impairment who presents from home with worsening shortness of breath and generalized weakness and fatigue with fevers for the last 6 days. She lives alone but has caretakers for the majority of the daytime hours and 2 of her caretakers recently have turned Covid positive. She is also had decreased p.o. intake and did actually stop taking all of her medications for a few days as per her daughter, but restarted her medications 2 days ago. The patient denies any vomiting but has had some nausea and poor appetite. Denies diarrhea or constipation. Denies abdominal pains. Did have a headache but this is now resolved. In the ER, she was noted to be hypoxic at 85% on room air and was placed on oxygen. On laboratory work-up, she had lymphopenia, mildly elevated D-dimer, was mildly hyponatremic with a sodium of 132, and her BUN and creatinine were elevated at 26 and 1.96, respectively. Her troponin was negative and LFTs were normal. Her proBNP was normal at 163. Chest x-ray showed bilateral basilar opacities with subtle interstitial thickening A Doppler of the right lower extremity performed for some mild swelling was negative for DVT. Her D-dimer is mildly elevated at 520. Her Covid-19 test was positive, and she was negative for influenza and RSV. She was afebrile and blood pressures were stable. She was given IV fluids and IV Decadron in the ER. She will be admitted for Covid-19 pneumonia with acute respiratory failure with hypoxia and acute kidney injury Allergies Allergy/AdvReac Type Severity Reaction Status Date / Time fentanyl Allergy Intermediate HIGH BLOOD Verified 02/24/20 18:55 PRESSURE, SKIN FLUSHED Cephalosporins Allergy Mild RASH Verified 02/24/20 18:55 Penicillins Allergy Mild RASH Verified 02/24/20 18:55 Sulfa (Sulfonamide Allergy Mild ? Verified 02/24/20 18:55 Antibiotics) bee venom protein (honey bee) Allergy Unknown . Verified 02/24/20 18:55 cephalexin Allergy Unknown Rash Verified 02/24/20 18:55 Iodinated Contrast Media Allergy Unknown PASS OUT, Verified 02/24/20 18:55 VOMITING ketorolac Allergy Unknown Unknown Verified 02/24/20 18:55 meperidine Allergy Unknown . Verified 02/24/20 18:55 codeine AdvReac Mild ALTERED Verified 02/24/20 18:55 MENTAL STATUS morphine AdvReac Unknown Nausea Verified 12/06/19 11:16 Home Medications Medication Instructions Recorded Confirmed Type atorvastatin 20 mg tablet 20 mg PO HS #30 tab 02/09/19 03/06/20 History cetirizine 10 mg tablet 10 mg PO DAILY PRN tab 02/09/19 03/06/20 History cyanocobalamin (vitamin B-12) 1,000 mcg PO DAILY #30 cap 02/09/19 03/06/20 History 1,000 mcg capsule diltiazem HCl 180 mg 180 mg PO QAM cap 02/09/19 03/06/20 History capsule,extended release 24 hr docusate sodium 100 mg capsule 200 mg PO HS cap 02/09/19 03/06/20 History hydrochlorothiazide 25 mg tablet 25 mg PO QAM tab 02/09/19 03/06/20 History losartan 50 mg tablet 50 mg PO QAM tab 02/09/19 03/06/20 History magnesium oxide 400 mg (241.3 mg 400 mg PO QAM tab 02/09/19 03/06/20 History magnesium) tablet metformin 500 mg tablet 500 mg PO BID #60 tab 02/09/19 03/06/20 History metoprolol succinate 50 mg 50 mg PO QAM tab 02/09/19 03/06/20 History tablet,extended release 24 hr nitroglycerin 0.4 mg sublingual 0.4 mg SL DIRECTED PRN tab 02/09/19 03/06/20 History tablet pantoprazole 40 mg tablet,delayed 40 mg PO QAM tab 02/09/19 03/06/20 History release venlafaxine 150 mg 150 mg PO QAM cap 02/09/19 03/06/20 History capsule,extended release 24 hr acetaminophen [Tylenol Extra 500 mg PO Q6H PRN 03/01/19 03/06/20 History Strength] clotrimazole [Lotrimin AF 1 applic TOPICAL DIRECTED 03/01/19 03/06/20 History (clotrimazole)] insulin aspart U-100 [Novolog See Rx Instructions .ROUTE .COMPLEX 03/01/19 03/06/20 History Flexpen U-100 Insulin] polyethylene glycol 3350 [Miralax] 17 g PO QAM 03/01/19 03/06/20 History aspirin [Aspirin Low Dose] 81 mg PO QAM 11/14/19 03/06/20 History cholecalciferol (vitamin D3) 2,000 unit PO QAM 11/14/19 03/06/20 History [Vitamin D3] oxybutynin chloride 5 mg PO BID 11/14/19 03/06/20 History pregabalin 150 mg capsule 150 mg PO BID 30 Days #60 cap 12/04/19 03/06/20 Rx insulin glargine 100 unit/mL 45 unit SUBCUT HS ml 12/06/19 03/06/20 History subcutaneous solution levetiracetam 500 mg PO BID 02/24/20 03/06/20 History Past Med/Surg History Medical History (Updated 03/06/20 @ 23:52 by Betty Estrella MD) Anesthesia in both legs Diabetic peripheral neuropathy Dyslipidemia Epilepsy Essential tremor Hypertension Loss of memory Obesity Peripheral neuropathy Sensory ataxia T2DM (type 2 diabetes mellitus) Tremor Vitamin B12 deficiency Vitamin D deficiency Surgical History Hx of cerebral aneurysm repair S/P adenoidectomy S/P cholecystectomy S/P hysterectomy S/P tonsillectomy S/P umbilical hernia repair, follow-up exam Status post tubal ligation Family History Mother Cancer Father Coronary heart disease Social History Smoking Status: Never smoker Hx Alcohol Use: Yes Alcohol type: wine Hx Substance Use: No Preferred Language: Latvian Communication Ability: Effective Director Of Agronomy Required: No Beliefs That Will Affect Care: None Current Living Situation: Alone Other Information That Helps Us Care for You: No Feels Safe at Home: Yes Safety Concerns: Feels Safe At This Time Assistive Devices: Walker Review of Systems Review of Systems: All systems reviewed & are unremarkable except as noted in HPI & below Physical Exam Constitutional: WD/WN, vitals as above + morbidly obese; no acute distress Eyes: PERRL, conjunctivae normal, anicteric sclerae ENMT: Ears: + hearing impairment Mouth: + oral mucosal abnormality (dry) Neck: trachea midline, no thyromegaly Respiratory: normal respiratory effort Auscultation: + crackles (At lower and middle lung lomas bilaterally); no wheezes Cardiovascular: Rate/Rhythm: regular rate and regular rhythm Heart Sounds: no murmur Extremities: + edema (Chronic 1+ nonpitting edema of the legs right greater than left) Chest (Breasts): Chest: normal inspection of chest Gastrointestinal (Abdomen): normal bowel sounds, soft, nontender, no hepatosplenomegaly Musculoskeletal: Extremities: extremities normal to inspection; no cyanosis and no clubbing Skin: no rashes, warm and dry Neurologic: moves all extremities and awake; no focal motor deficits Psychiatric: A+Ox3, euthymic affect Lymphatic: no lymphedema Results & Data Results & Data ([facility]) Vital Signs (Past 12 Hours) Vital Signs Temp Pulse Resp BP Pulse Ox 03/06/20 16:17 66 20 100/51 L 93 03/06/20 16:01 56 L 18 98/56 L 95 03/06/20 15:32 69 17 96/55 L 95 03/06/20 14:48 95 03/06/20 14:14 36.7 C 61 13 108/65 85 L Laboratory Results 03/06/20 03/06/20 03/06/20 Range/Units 20:16 15:37 15:35 WBC (4.8-10.8) K/uL RBC (4.2-5.4) M/uL Hgb (12.0-16.0) g/dL Hct (37-47) % MCV (80-100) fL MCH (25-34) pg MCHC (32-36) g/dL RDW Std Deviation (36.4-46.3) fL RDW Coeff of Nic (11.5-14.5) % Plt Count (130-400) K/uL MPV (7.4-10.4) fL Immature Gran % (Auto) % Neut % (Auto) % Lymph % (Auto) % [place] % (Auto) % Eos % (Auto) % Baso % (Auto) % Neut # (Auto) (1.4-6.5) K/uL Lymph # (Auto) (1.2-3.4) K/uL [place] # (Auto) (0.11-0.59) K/uL Eos # (Auto) (0-0.5) K/uL Baso # (Auto) (0-0.2) K/uL Immature Gran # (Auto) (0.00-0.02) K/uL D-Dimer (0-500) ug/L FEU Sodium (136-145) mmol/L Potassium (3.5-5.1) mmol/L Chloride (98-107) mmol/L Carbon Dioxide (21-32) mmol/L Anion Gap (3-11) BUN (7-18) mg/dl Creatinine (0.6-1.2) mg/dl Est Cr Clr Drug Dosing ml/min Est GFR ( Amer) Est GFR (Non-Af Amer) BUN/Creatinine Ratio (10-20) Glucose (70-99) mg/dl POC Glucose 193 H (70-99) mg/dl Calcium (8.5-10.1) mg/dl Total Bilirubin (0.2-1) mg/dl AST (15-37) U/L ALT (12-78) U/L Alkaline Phosphatase (45-117) U/L Troponin I < 0.015 (0-0.045) ng/ml NT-Pro-B Natriuret Pep (0-900) pg/ml Total Protein (6.4-8.2) gm/dl Albumin (3.4-5.0) gm/dl Globulin (2.5-4.0) gm/dl Albumin/Globulin Ratio (0.9-2) COVID-19 Eval Order SARS-CoV-2 (PCR) POSITIVE A* (Negative) Influenza Type A (PCR) Negative (Neg) Influenza Type B (PCR) Negative (Neg) RSV (RT-PCR) Negative (Neg) 03/06/20 03/06/20 03/06/20 Range/Units 15:35 14:28 14:28 WBC (4.8-10.8) K/uL RBC (4.2-5.4) M/uL Hgb (12.0-16.0) g/dL Hct (37-47) % MCV (80-100) fL MCH (25-34) pg MCHC (32-36) g/dL RDW Std Deviation (36.4-46.3) fL RDW Coeff of Nic (11.5-14.5) % Plt Count (130-400) K/uL MPV (7.4-10.4) fL Immature Gran % (Auto) % Neut % (Auto) % Lymph % (Auto) % [place] % (Auto) % Eos % (Auto) % Baso % (Auto) % Neut # (Auto) (1.4-6.5) K/uL Lymph # (Auto) (1.2-3.4) K/uL [place] # (Auto) (0.11-0.59) K/uL Eos # (Auto) (0-0.5) K/uL Baso # (Auto) (0-0.2) K/uL Immature Gran # (Auto) (0.00-0.02) K/uL D-Dimer 520 H* (0-500) ug/L FEU Sodium (136-145) mmol/L Potassium (3.5-5.1) mmol/L Chloride (98-107) mmol/L Carbon Dioxide (21-32) mmol/L Anion Gap (3-11) BUN (7-18) mg/dl Creatinine (0.6-1.2) mg/dl Est Cr Clr Drug Dosing ml/min Est GFR ( Amer) Est GFR (Non-Af Amer) BUN/Creatinine Ratio (10-20) Glucose (70-99) mg/dl POC Glucose (70-99) mg/dl Calcium (8.5-10.1) mg/dl Total Bilirubin (0.2-1) mg/dl AST (15-37) U/L ALT (12-78) U/L Alkaline Phosphatase (45-117) U/L Troponin I (0-0.045) ng/ml NT-Pro-B Natriuret Pep 163 (0-900) pg/ml Total Protein (6.4-8.2) gm/dl Albumin (3.4-5.0) gm/dl Globulin (2.5-4.0) gm/dl Albumin/Globulin Ratio (0.9-2) COVID-19 Eval Order CovFluRsv at [facility] SARS-CoV-2 (PCR) (Negative) Influenza Type A (PCR) (Neg) Influenza Type B (PCR) (Neg) RSV (RT-PCR) (Neg) 03/06/20 03/06/20 Range/Units 14:28 14:28 WBC 8.68 (4.8-10.8) K/uL RBC 4.81 (4.2-5.4) M/uL Hgb 13.1 (12.0-16.0) g/dL Hct 39.8 (37-47) % MCV 82.7 (80-100) fL MCH 27.2 (25-34) pg MCHC 32.9 (32-36) g/dL RDW Std Deviation 46.6 H (36.4-46.3) fL RDW Coeff of Nic 15.3 H (11.5-14.5) % Plt Count 310 (130-400) K/uL MPV 10.3 (7.4-10.4) fL Immature Gran % (Auto) 0.1 % Neut % (Auto) 73.5 % Lymph % (Auto) 12.9 % [place] % (Auto) 12.1 % Eos % (Auto) 1.3 % Baso % (Auto) 0.1 % Neut # (Auto) 6.38 (1.4-6.5) K/uL Lymph # (Auto) 1.12 L (1.2-3.4) K/uL [place] # (Auto) 1.05 H (0.11-0.59) K/uL Eos # (Auto) 0.11 (0-0.5) K/uL Baso # (Auto) 0.01 (0-0.2) K/uL Immature Gran # (Auto) 0.01 (0.00-0.02) K/uL D-Dimer (0-500) ug/L FEU Sodium 132 L (136-145) mmol/L Potassium 3.5 (3.5-5.1) mmol/L Chloride 96 L (98-107) mmol/L Carbon Dioxide 28 (21-32) mmol/L Anion Gap 8.0 (3-11) BUN 26 H (7-18) mg/dl Creatinine 1.96 H (0.6-1.2) mg/dl Est Cr Clr Drug Dosing 31.2 ml/min Est GFR ( Amer) 28.7 Est GFR (Non-Af Amer) 24.8 BUN/Creatinine Ratio 13.0 (10-20) Glucose 110 H (70-99) mg/dl POC Glucose (70-99) mg/dl Calcium 9.0 (8.5-10.1) mg/dl Total Bilirubin 0.6 (0.2-1) mg/dl AST 24 (15-37) U/L ALT 19 (12-78) U/L Alkaline Phosphatase 110 (45-117) U/L Troponin I (0-0.045) ng/ml NT-Pro-B Natriuret Pep (0-900) pg/ml Total Protein 7.3 (6.4-8.2) gm/dl Albumin 3.0 L (3.4-5.0) gm/dl Globulin 4.3 H (2.5-4.0) gm/dl Albumin/Globulin Ratio 0.7 L (0.9-2) COVID-19 Eval Order SARS-CoV-2 (PCR) (Negative) Influenza Type A (PCR) (Neg) Influenza Type B (PCR) (Neg) RSV (RT-PCR) (Neg) ECG Additional Comments: ECG on 03/06/2020 at 1438 with sinus bradycardia with first- degree AV block, left ventricular hypertrophy with QRS widening, change from previous and that LBBB is no longer present Code Status & VTE Plan Code Status Conditional code-daughter who is POA reports that patient always has maintained she would never want to be on a ventilator, but is okay with CPR if no intubation is used VTE Prophylaxis Plan VTE Prophylaxis will be ordered: Yes PG Care Time/CCT Total # of Minutes Spent Total Time Spent with Patient: Total time spent is greater than 50% in coordination of care (as documented) at patient's floor/unit and/or counseling patient: Coding Level of Care Code 15829 Initial Inpt Care Lvl 3 Diagnoses COVID-19 U07.1 Hypoxic R09.02 HANNAH (acute kidney injury) N17.9 Hyponatremia E87.1 T2DM (type 2 diabetes mellitus) E11.9 Vitamin D deficiency E55.9 Vitamin B12 deficiency E53.8 Dyslipidemia E78.5 Diabetic peripheral neuropathy E11.42 Epilepsy G40.909 Essential tremor G25.0 Hypertension I10 Loss of memory R41.3 DVT prophylaxis Z29.9
[2020-03-06] MEDS ORDERED: PHARMACY GLYCEMIC MGMT CONSULT STA (17:51)
--- NOTE | 2020-03-06 18:45 | Ultrasound Report ---
US venous doppler LE RT CLINICAL HISTORY: Right leg swelling. Covid positive patient. COMPARISON STUDY: December 2015 FINDINGS: Real-time and color flow Doppler imaging were performed. Flow was seen within the femoral, popliteal and calf veins with no intraluminal thrombus demonstrated. The saphenous vein is patent. Th e examination was difficult from a technical standpoint. Visualization of the calf veins was limited. IMPRESSION: No evidence of right lower extremity DVT. ACT 112: Negative or not required by law. Electronically signed by: Britton Butler M.D. 03/06/2020 6:43 PM
[2020-03-06] MEDS ORDERED: ONDANSETRON INJ 2 MG/ML 2 ML VIAL IV PRN (20:03)
[2020-03-06] MEDS ORDERED: GLUCOSE 10 TABS/TUBE PO PRN (20:03)
[2020-03-06] MEDS ORDERED: GLUCAGON FOR INJ 1 MG VIAL SQ PRN (20:03)
[2020-03-06] MEDS ORDERED: DEXTROSE 50% 50 ML SYRINGE IV PRN (20:03)
[2020-03-06] MEDS ORDERED: CARBOHYDRATES FOR HYPOGLYCEMIA PO PRN (20:03)
[2020-03-06] MEDS ORDERED: GLUCOSE 40% GEL 15 GM TUBE PO PRN (20:03)
[2020-03-06] MEDS ORDERED: CETIRIZINE HCL 10 MG TABLET PO PRN (20:03)
[2020-03-06] MEDS: SODIUM CHLORIDE 0.9% 1000ML 1,000 ML IV SCH (20:09)
[2020-03-06] MEDS ORDERED: MICONAZOLE NITRATE POWDER 43 GM EXT PRN (20:13)
[2020-03-06] MEDS ORDERED: ACETAMINOPHEN 500 MG TAB PO PRN (20:26)
[2020-03-06] MEDS ORDERED: PHARMACY GLYCEMIC MGMT CONSULT PRN (20:32)
[2020-03-06] MEDS: ENOXAPARIN INJ 40 MG/0.4 ML SYR SQ SCH (21:06)
[2020-03-06] MEDS: OXYBUTYNIN CHLORIDE 5 MG TAB PO SCH (21:06)
[2020-03-06] MEDS: PREGABALIN 150 MG CAP PO SCH (21:07)
[2020-03-06] MEDS: DOCUSATE SODIUM 100 MG CAP PO SCH (21:07)
[2020-03-06] MEDS: ATORVASTATIN 20 MG TAB PO SCH (21:07)
[2020-03-06] MEDS: INSULIN ASPART 100 UNITS/ML 3 ML PEN SC SCH (21:19)
[2020-03-06] MEDS: INSULIN GLARGINE SOLOSTAR 100 UNITS/ML 3 ML PEN SC SCH (21:19)
--- NOTE | 2020-03-06 22:37 | Pharmacy Report ---
Pharmacy Glycemic Short Note 2 - Date of Service March 06, 2020 - Glycemic Short BSG Results (Last 24 hours): 03/06/20 03/06/20 14:28 20:16 Glucose 110 H POC Glucose 193 H OUTPATIENT ANTIDIABETIC REGIMEN: * Lantus 45 units SC HS * Novolog TIDM (8 units with breakfast, 6 units with lunch, and 10 units with dinner) * Metformin 500 mg PO BIDM * HbA1c: 6.8% (11/15/19), recheck pending for tomorrow ASSESSMENT: * ANA is a 74 year old female admitted on 03/06 with COVID-19 pneumonia * Dexamethasone 6 mg IV daily ordered * BSG at presentation of 110 mg/dL * BSG recheck on floor of 193 mg/dL * Will give home basal with slight empiric reduction + Novolog with one overnight check this evening PLAN FOR INPATIENT GLYCEMIC CONTROL: * Hold outpatient oral diabetes medications * Basal insulin * Lantus 40 units SC x 1 this evening * Consider NPH in AM with dexamethasone * Bolus insulin * NovoLog per scale ACHS or Q6hrs while NPO * Goal Range: Low 110 mg/dL - High 140 mg/dL * Correction Factor: 20 mg/dL/unit * Nutritional / Prandial insulin per carb ratio of 1 unit per 7 grams CHO consumed PLAN FOR DISCHARGE: * tbd
[2020-03-07] MEDS ORDERED: INSULIN ASPART 100 UNITS/ML 3 ML PEN SC SCH (02:00)
[2020-03-07 05:51] LABS: Hematocrit (blood only) 37.2 % (37-47); Hemoglobin 12.1 g/dL (12.0-16.0); Immature Granulocytes # (auto) 0.01 K/uL (0.00-0.02); Immature Granulocytes % (auto) 0.3 %; Lymphocytes # (auto) 0.96 K/uL (1.2-3.4); Lymphocytes % (auto) 25.9 %; Mean Corpuscular Hemoglobin 27.3 pg (25-34); Mean Corpuscular Hgb Conc 32.5 g/dL (32-36); Mean Platelet Volume 10.5 fL (7.4-10.4); Monocytes % (auto) 5.4 %; Neutrophils # (auto) 2.53 K/uL (1.4-6.5); Neutrophils % (auto) 68.4 %; Platelet Count 229 K/uL (130-400); RDW Standard Deviation 46.2 fL (36.4-46.3); Red Blood Count 4.43 M/uL (4.2-5.4)
[2020-03-07 06:40] LABS: Estimated Average Glucose 212 mg/dl
[2020-03-07 06:45] LABS: Alanine Aminotransferase 19 U/L (12-78); Albumin Globulin Ratio 0.6 (0.9-2); Albumin Level 2.5 gm/dl (3.4-5.0); Alkaline Phosphatase 90 U/L (45-117); BUN Creatinine Ratio 21.3 (10-20); Bilirubin,Total 0.7 mg/dl (0.2-1); Blood Urea Nitrogen 35 mg/dl (7-18); Calcium 8.4 mg/dl (8.5-10.1); Carbon Dioxide 27 mmol/L (21-32); Chloride 97 mmol/L (98-107); Creatinine Clr Calc Pharmacy 35.7 ml/min; Est GFR (African American) 35.3; Est GFR (Non-African American) 30.5; Globulin 4.4 gm/dl (2.5-4.0); Glucose 193 mg/dl (70-99); Sodium 132 mmol/L (136-145); Total Protein 6.9 gm/dl (6.4-8.2)
--- NOTE | 2020-03-07 07:57 | Hospitalist Progress Note ---
Date of Service March 07, 2020 Assessment & Plan (1) COVID-19: covid 19 pneumonia Patient began with symptoms on 02/29/2020 and has had fevers, headache, poor appetite with poor p.o. intake, shortness of breath and cough. She contracted Covid-19 from caregivers to come to the house. Presented with hypoxia and acute kidney injury with multifocal pneumonia on admission. D-dimer is only minimally elevated at 520, do not suspect PE - supplemental O2 to keep pulse ox greater than 92% - dexamethasone 6 mg IV once daily x10-day course -Not a candidate for remdesivir due to acute kidney injury -Discussed convalescent plasma with the patient and her daughter-daughter would like to hold off on this (2) Hypoxic: Secondary to Covid-19 pneumonia as above with hypoxia O2, pulmonary toilet (3) HANNAH (acute kidney injury): improved with hydration not yet back to baseline Renally dose medications Holding home HCTZ and losartan as well as Metformin (4) Hyponatremia: Secondary to dehydration Continue normal saline follow BMP in the morning (5) T2DM (type 2 diabetes mellitus): Hemoglobin A1c 6.8% in 10/2019 A1c 9.0 Insulin sliding scale with NovoLog Hold home metformin Continue Lantus but lower to 40 units at bedtime as she is taking minimal p.o. at this time Accu-Cheks before every meal and at bedtime Diabetic diet Glycemic consult placed (6) Vitamin D deficiency: Continue home vitamin D (7) Vitamin B12 deficiency: Continue home p.o. vitamin B12 supplement (8) Dyslipidemia: Continue home statin (9) Diabetic peripheral neuropathy: Continue Lyrica- (10) Epilepsy: No recent seizures Continue home Keppra, Dilantin, Lyrica (11) Essential tremor: Noted Continue beta-gigi (12) Hypertension: Blood pressures are controlled Continue home metoprolol and diltiazem Holding home losartan and HCTZ for acute kidney injury (13) Loss of memory: Mild Supportive care Watch for delirium (14) DVT prophylaxis: Lovenox 40 mg SQ twice daily She is a conditional code-does not want to be on a ventilator at all even during cardiac arrest, but is okay with CPR and medications otherwise during ACLS Admission and Anticipated Discharge Date Admission Date: March 06, 2020 Subjective Patient feels somewhat improved still fairly significantly short of breath and tachypneic even with conversation. Nonproductive cough still with loss of taste or smell Review of Systems Review of Systems: Moderate respiratory distress and fatigue no headache, blurry or double vision no speech or swallowing issues no chest pain, pressure or palpitations Remains with shortness of breath, nonproductive cough no abdominal pain, nausea or vomiting, diarrhea or constipation no dysuria, hematuria or frequency no focal joint pain or swelling no back pain, CVA tenderness or radicular pain no bruising, bleeding or rashes no focal signs of weakness or numbness or altered sensation no complaints of anxiety or depression.. Physical Exam Physical Exam: The patient appeared in mild/moderate distress she is morbidly obese with a BMI of 47 Vital signs as documented. Head exam is normocephalic atraumatic no scleral icterus Neck is without JVD, thyromegaly, or carotid bruits. Lungs are fine rales heard bilaterally Cardiac exam, Rhythm is regular.. No murmurs heard. Abdominal exam reveals normal bowel sounds, soft non tender, no masses Extremities are nonedematous and both pedal pulses are present Neurologic exam is alert and oriented, no focal loss of strength or sensation Skin is without bruises or rashes Psychologically is without concerns for anxiety or depression. Results & Data Results & Data ([facility]) Vital Signs (Past 12 Hours) Vital Signs Temp Pulse Pulse Resp BP Pulse Ox 03/07/20 07:36 97.5 F L 66 16 106/57 L 90 03/07/20 06:42 98.6 F 54 L 20 115/71 92 03/07/20 02:07 98.4 F 83 18 101/55 L 90 03/06/20 23:12 58 L 03/06/20 20:14 98.4 F 61 20 109/68 93 PG Care Time/CCT Total # of Minutes Spent Total Time Spent with Patient: Total time spent is greater than 50% in coordination of care (as documented) at patient's floor/unit and/or counseling patient: Coding Level of Care Code 12185 Subseq Hosp Care Lvl 3 Diagnoses COVID-19 U07.1 Hypoxic R09.02 HANNAH (acute kidney injury) N17.9 Hyponatremia E87.1 T2DM (type 2 diabetes mellitus) E11.9 Vitamin D deficiency E55.9 Vitamin B12 deficiency E53.8 Dyslipidemia E78.5 Diabetic peripheral neuropathy E11.42 Epilepsy G40.909 Essential tremor G25.0 Hypertension I10 Loss of memory R41.3 DVT prophylaxis Z29.9
[2020-03-07] MEDS: POLYETHYLENE (MIRALAX) 17 GM PACK PO SCH (08:21)
[2020-03-07 08:35] LABS: Potassium 3.3 mmol/L (3.5-5.1)
[2020-03-07] MEDS: SODIUM CHLORIDE 0.9% 1000ML 1,000 ML IV SCH ×2 (08:54→22:25)
[2020-03-07] MEDS: dilTIAZem HCL 180 MG CAPCR PO SCH (08:57)
[2020-03-07] MEDS: ASPIRIN 81 MG ECTAB PO SCH (08:58)
[2020-03-07] MEDS: DEXAMETHASONE SOD PHOSPHATE 6 MG in SYRINGE 0 ML IV SCH (08:58)
[2020-03-07] MEDS: OXYBUTYNIN CHLORIDE 5 MG TAB PO SCH ×2 (08:58→20:09)
[2020-03-07] MEDS: VENLAFAXINE HCL XR 150 MG CAPXR PO SCH (08:58)
[2020-03-07] MEDS: PREGABALIN 150 MG CAP PO SCH ×2 (08:59→20:09)
[2020-03-07] MEDS: ENOXAPARIN INJ 40 MG/0.4 ML SYR SQ SCH ×2 (08:59→20:10)
[2020-03-07] MEDS: levETIRAcetam 500 MG TAB PO SCH ×2 (08:59→20:09)
[2020-03-07] MEDS: PANTOprazole 40 MG TAB PO SCH (09:00)
[2020-03-07] MEDS: MAGNESIUM OXIDE 400 MG TAB PO SCH (09:00)
[2020-03-07] MEDS: METOPROLOL SUCC 50MG EXT REL TAB PO SCH (09:00)
[2020-03-07] MEDS ORDERED: INSULIN HUMAN NPH SC SCH (09:00)
[2020-03-07] MEDS: CHOLECALCIFEROL 1,000 UNITS 25 MCG TAB PO SCH (09:00)
[2020-03-07] MEDS: CYANOCOBALAMIN 500 MCG TABLET (VITAMIN B-12) PO SCH (09:00)
[2020-03-07] MEDS ORDERED: DEXAMETHASONE SOD INJ 4 MG/ML VIAL IV SCH (09:00)
[2020-03-07] MEDS: INSULIN ASPART 100 UNITS/ML 3 ML PEN SC SCH ×4 (09:57→20:50)
--- NOTE | 2020-03-07 14:32 | Pharmacy Report ---
Glycemic Control Consultation - Date of Service March 07, 2020 - Scope Scope: Glycemic Pharmacist consulted for glycemic control and to write orders per [facility] inpatient glycemic control protocol. - Objective Weight: 114.7 kg Accuchecks BSG (last 24hrs): 03/06/20 03/06/20 03/07/20 14:28 20:16 01:57 Glucose 110 H POC Glucose 193 H 203 H 03/07/20 03/07/20 03/07/20 05:28 07:17 11:27 Glucose 193 H POC Glucose 241 H 247 H Laboratory Data (last 24hrs): 03/06/20 03/07/20 03/07/20 14:28 05:28 07:03 Potassium 3.5 TNP 3.3 L Carbon Dioxide 28 27 Anion Gap 8.0 8.0 Creatinine 1.96 H 1.65 H D Est Cr Clr Drug Dosing 31.2 35.7 HbA1c: Hemoglobin A1c 9.0 % (4.5-5.6) H 03/07/20 05:28 - Recent Pertinent Medications Outpatient Anti-diabetic Regimen: * Lantus 45 units SC HS * Novolog TIDM (8 units with breakfast, 6 units with lunch, and 10 units with dinner) * Metformin 500 mg PO BIDM * HbA1c: 6.8% (11/15/19), recheck pending for tomorrow Risk Factors for Insulin Resistance: * Steroids: Dexamethasone 6 mg IV daily * Infection: none * Diet: T2DM - Assessment & Plan Assessment & Plan: ASSESSMENT: * 74 year old female admitted yesterday with COVID-19 pneumonia. * Patient with Type 2 diabetes managed at home on Lantus and Novolog. Will continue these while admitted. * Yesterday, patient received 40 units of Lantus (dose slightly reduced from home dose). * Fasting BSG today was 193 mg/dl. Will continue with current Lantus dosing. * Since patient is on IV Dexamethasone, also added NPH 22 units (0.3 units/kg used adjusted body wt) this AM to counteract steroid-induced hyperglycemia. * Novolog parameters tightened. Expect BSGs to be trending down this evening. PLAN FOR INPATIENT GLYCEMIC CONTROL: * Basal insulin * Lantus 40 units SQ HS * NPH 22 units SQ with Dexamethasone IV * Bolus insulin * NovoLog per scale ACHS or Q6hrs while NPO * Goal Range: Low 110 mg/dL - High 140 mg/dL * Correction Factor: 15 mg/dL/unit * Nutritional / Prandial insulin per carb ratio of 1 unit per 5 grams CHO consumed * Please note that the plan above was derived based on current level of insulin resistance and hospital stress. These recommendations are appropriate for inpatient admission only. Plan of care upon discharge will need to be reassessed to avoid potential outpatient hypo/hyperglycemia. Thank you.
[2020-03-07] MEDS ORDERED: POTASSIUM CHLORIDE CRTAB 20 MEQ TABCR PO ONE (17:06)
[2020-03-07] MEDS: ATORVASTATIN 20 MG TAB PO SCH (20:09)
[2020-03-07] MEDS: DOCUSATE SODIUM 100 MG CAP PO SCH (20:09)
[2020-03-07] MEDS: INSULIN GLARGINE SOLOSTAR 100 UNITS/ML 3 ML PEN SC SCH (20:50)
[2020-03-08 04:29] LABS: Appearance Urine Cloudy (Clear); Bacteria Urine Automated 3+ (Negative); Bilirubin Urine Negative (Negative); Blood Urine Negative (Negative); Color Urine Yellow; Epithelial Cell Urine Auto >30 /lpf (0-5); Glucose Urine UA Negative (Negative); Ketones Urine Negative (Negative); Leukocyte Esterase Urine 1+ (Negative); Nitrite Urine Negative (Negative); Protein Urine Negative (Negative); RBC Urine Automated 0-4 /hpf (0-4); Specific Gravity Urine 1.021 (1.000-1.030); Urobilinogen Urine Negative (Negative)
[2020-03-08] MEDS: OXYBUTYNIN CHLORIDE 5 MG TAB PO SCH ×2 (08:24→20:57)
[2020-03-08] MEDS: MAGNESIUM OXIDE 400 MG TAB PO SCH (08:24)
[2020-03-08] MEDS: levETIRAcetam 500 MG TAB PO SCH ×2 (08:24→20:58)
[2020-03-08] MEDS: ASPIRIN 81 MG ECTAB PO SCH (08:24)
[2020-03-08] MEDS: VENLAFAXINE HCL XR 150 MG CAPXR PO SCH (08:24)
[2020-03-08] MEDS: CYANOCOBALAMIN 500 MCG TABLET (VITAMIN B-12) PO SCH (08:24)
[2020-03-08] MEDS: CHOLECALCIFEROL 1,000 UNITS 25 MCG TAB PO SCH (08:24)
[2020-03-08] MEDS: PANTOprazole 40 MG TAB PO SCH (08:24)
[2020-03-08] MEDS: dilTIAZem HCL 180 MG CAPCR PO SCH (08:26)
[2020-03-08] MEDS: METOPROLOL SUCC 50MG EXT REL TAB PO SCH (08:26)
[2020-03-08] MEDS: POLYETHYLENE (MIRALAX) 17 GM PACK PO SCH (08:27)
[2020-03-08] MEDS: PREGABALIN 150 MG CAP PO SCH ×2 (08:28→21:11)
[2020-03-08] MEDS: ENOXAPARIN INJ 40 MG/0.4 ML SYR SQ SCH ×2 (08:28→20:56)
[2020-03-08] MEDS: DEXAMETHASONE SOD PHOSPHATE 6 MG in SYRINGE 0 ML IV SCH (08:29)
[2020-03-08] MEDS ORDERED: INSULIN HUMAN NPH SC SCH (09:00)
[2020-03-08] MEDS: INSULIN ASPART 100 UNITS/ML 3 ML PEN SC SCH ×4 (09:43→21:22)
--- NOTE | 2020-03-08 11:02 | Pharmacy Report ---
Pharmacy Glycemic Short Note 2 - Date of Service March 08, 2020 - Glycemic Short BSG Results (Last 24 hours): 03/07/20 03/07/20 03/07/20 11:27 17:01 20:13 POC Glucose 247 H 233 H 247 H 03/08/20 07:35 POC Glucose 196 H OUTPATIENT ANTIDIABETIC REGIMEN: * Lantus 45 units SC HS * Novolog TIDM (8 units with breakfast, 6 units with lunch, and 10 units with dinner) * Metformin 500 mg PO BIDM * HbA1c: 6.8% (11/15/19), recheck pending for tomorrow ASSESSMENT: 03/08: * Patient received total of 121 units of insulin yesterday: 62 units basal (40 units Lantus + 22 units NPH) + 59 units bolus. * Fasting BSG this AM was 196 mg/dl. Will continue with current Lantus dose. * Patient continues to receive Dexamethasone 6 mg IV. Post-prandial BSGs yesterday were significantly elevated, so NPH dose was increased to 0.3 units/kg this AM given with the Dex IV today. * Continued Novolog parameters the same. PLAN FOR INPATIENT GLYCEMIC CONTROL: * Hold outpatient oral diabetes medications * Basal insulin: increased NPH dose * Lantus 40 units SC HS * NPH 34 units (0.3 units/kg) QAM with Dexamethasone IV * Bolus insulin: * NovoLog per scale ACHS or Q6hrs while NPO * Goal Range: Low 110 mg/dL - High 140 mg/dL * Correction Factor: 15 mg/dL/unit * Nutritional / Prandial insulin per carb ratio of 1 unit per 5 grams CHO consumed PLAN FOR DISCHARGE: * HbA1c = 9% * Goal HbA1c is less than 8%. * certified lactation educator spoke to patient. She has been compliant with her meds and insulin per report. A1c at goal back in October 2019 (6.8%). * Patient does report having difficulty pressing the injector on the insulin pens sometimes d/t neuropathy. * Since patient resides at [facility], recommend caregiver helps to make sure she is receiving all the insulin doses currently prescribed before making any adjustment to home doses of Lantus and Novolog. Close follow up with outpatient diabetes provider for dose adjustments.
[2020-03-08] MEDS: SODIUM CHLORIDE 0.9% 1000ML 1,000 ML IV SCH (11:25)
--- NOTE | 2020-03-08 14:39 | Electrocardiogram Report ---
Test Reason : Blood Pressure : / mmHG Vent. Rate : 057 BPM Atrial Rate : 057 BPM P-R Int : 252 ms QRS Dur : 144 ms QT Int : 510 ms P-R-T Axes : 068 -13 057 degrees QTc Int : 496 ms Sinus bradycardia with 1st degree A-V block Left bundle branch block Abnormal ECG When compared with ECG of 24-FEB-2020 16:59, No significant change Confirmed by Adriano Yung ([id number]) on 03/08/2020 2:38:42 PM Referred By: Confirmed By:Adriano Yung
--- NOTE | 2020-03-08 16:10 | Hospitalist Progress Note ---
Date of Service March 08, 2020 Assessment & Plan (1) COVID-19: covid 19 pneumonia Patient began with symptoms on 02/29/2020 and has had fevers, headache, poor appetite with poor p.o. intake, shortness of breath and cough. She contracted Covid-19 from caregivers to come to the house. Presented with hypoxia and acute kidney injury with multifocal pneumonia on admission. D-dimer is only minimally elevated at 520, do not suspect PE - supplemental O2 to keep pulse ox greater than 92% - dexamethasone 6 mg IV once daily x10-day course -was Not a candidate for remdesivir due to acute kidney injury -Discussed convalescent plasma with the patient and her daughter-daughter reconfirmed 03/08 that she will not want this (2) Hypoxic: Secondary to Covid-19 pneumonia as above with hypoxia O2, pulmonary toilet (3) HANNAH (acute kidney injury): improved with hydration not yet back to baseline Renally dose medications Holding home HCTZ and losartan as well as Metformin (4) Hyponatremia: improved (5) T2DM (type 2 diabetes mellitus): Hemoglobin A1c 6.8% in 10/2019 A1c 9.0 Insulin sliding scale with NovoLog Hold home metformin Continue Lantus but lower to 40 units at bedtime as she is taking minimal p.o. at this time Accu-Cheks before every meal and at bedtime Diabetic diet Glycemic consult placed (6) Vitamin D deficiency: Continue home vitamin D (7) Vitamin B12 deficiency: Continue home p.o. vitamin B12 supplement (8) Dyslipidemia: Continue home statin (9) Diabetic peripheral neuropathy: Continue Lyrica- (10) Epilepsy: No recent seizures Continue home Keppra, Dilantin, Lyrica (11) Essential tremor: Noted Continue beta-gigi (12) Hypertension: Blood pressures are controlled Continue home metoprolol and diltiazem Holding home losartan and HCTZ for acute kidney injury (13) Loss of memory: Mild Supportive care Watch for delirium (14) DVT prophylaxis: Lovenox 40 mg SQ twice daily She is a conditional code-does not want to be on a ventilator at all even during cardiac arrest, but is okay with CPR and medications otherwise during ACLS Admission and Anticipated Discharge Date Admission Date: March 06, 2020 Subjective Patient feels somewhat improved still fairly significantly short of breath and tachypneic even with conversation. Nonproductive cough still with improving loss of taste or smell Review of Systems Review of Systems: Moderate respiratory distress and fatigue no headache, blurry or double vision no speech or swallowing issues no chest pain, pressure or palpitations Remains with shortness of breath, nonproductive cough no abdominal pain, nausea or vomiting, diarrhea or constipation no dysuria, hematuria or frequency no focal joint pain or swelling no back pain, CVA tenderness or radicular pain no bruising, bleeding or rashes no focal signs of weakness or numbness or altered sensation no complaints of anxiety or depression.. Physical Exam Physical Exam: The patient appeared in mild/moderate distress she is morbidly obese with a BMI of 47 Vital signs as documented. Head exam is normocephalic atraumatic no scleral icterus Neck is without JVD, thyromegaly, or carotid bruits. Lungs are fine rales heard bilaterally Cardiac exam, Rhythm is regular.. No murmurs heard. Abdominal exam reveals normal bowel sounds, soft non tender, no masses Extremities are nonedematous and both pedal pulses are present Neurologic exam is alert and oriented, no focal loss of strength or sensation Skin is without bruises or rashes Psychologically is without concerns for anxiety or depression. Results & Data Results & Data ([facility]) Vital Signs (Past 12 Hours) Vital Signs Temp Pulse Pulse Resp BP Pulse Ox 03/08/20 11:16 97.3 F L 56 L 20 125/71 93 03/08/20 08:12 97.5 F L 46 L 16 93/44 L 93 03/08/20 07:32 50 L 03/08/20 04:21 97.5 F L 49 L 20 113/63 93 PG Care Time/CCT Total # of Minutes Spent Total Time Spent with Patient: Total time spent is greater than 50% in coordination of care (as documented) at patient's floor/unit and/or counseling patient: Coding Level of Care Code 04260 Subseq Hosp Care Lvl 2 Diagnoses COVID-19 U07.1 Hypoxic R09.02 HANNAH (acute kidney injury) N17.9 Hyponatremia E87.1 T2DM (type 2 diabetes mellitus) E11.9 Vitamin D deficiency E55.9 Vitamin B12 deficiency E53.8 Dyslipidemia E78.5 Diabetic peripheral neuropathy E11.42 Epilepsy G40.909 Essential tremor G25.0 Hypertension I10 Loss of memory R41.3 DVT prophylaxis Z29.9
[2020-03-08 17:01] LABS: BUN Creatinine Ratio 32.6 (10-20); Creatinine Clr Calc Pharmacy 62.7 ml/min; Est GFR (African American) 69.8; Est GFR (Non-African American) 60.2
[2020-03-08] MEDS: DOCUSATE SODIUM 100 MG CAP PO SCH (20:58)
[2020-03-08] MEDS: ATORVASTATIN 20 MG TAB PO SCH (20:58)
[2020-03-08] MEDS: INSULIN GLARGINE SOLOSTAR 100 UNITS/ML 3 ML PEN SC SCH (21:22)
[2020-03-09] MEDS: SODIUM CHLORIDE 0.9% 1000ML 1,000 ML IV SCH ×2 (00:57→12:40)
[2020-03-09 07:41] LABS: BUN Creatinine Ratio 35.4 (10-20); Calcium 8.2 mg/dl (8.5-10.1); Est GFR (African American) 103.7; Est GFR (Non-African American) 89.5; Potassium 3.5 mmol/L (3.5-5.1)
[2020-03-09] MEDS: PREGABALIN 150 MG CAP PO SCH ×2 (07:53→20:39)
[2020-03-09] MEDS: DEXAMETHASONE SOD PHOSPHATE 6 MG in SYRINGE 0 ML IV SCH (07:53)
[2020-03-09] MEDS: PANTOprazole 40 MG TAB PO SCH (07:54)
[2020-03-09] MEDS: CHOLECALCIFEROL 1,000 UNITS 25 MCG TAB PO SCH (07:54)
[2020-03-09] MEDS: VENLAFAXINE HCL XR 150 MG CAPXR PO SCH (07:55)
[2020-03-09] MEDS: CYANOCOBALAMIN 500 MCG TABLET (VITAMIN B-12) PO SCH (07:55)
[2020-03-09] MEDS: METOPROLOL SUCC 50MG EXT REL TAB PO SCH (07:59)
[2020-03-09] MEDS: ASPIRIN 81 MG ECTAB PO SCH (07:59)
[2020-03-09] MEDS: MAGNESIUM OXIDE 400 MG TAB PO SCH ×2 (07:59→20:40)
[2020-03-09] MEDS: levETIRAcetam 500 MG TAB PO SCH ×2 (07:59→20:41)
[2020-03-09] MEDS: dilTIAZem HCL 180 MG CAPCR PO SCH (07:59)
[2020-03-09] MEDS: OXYBUTYNIN CHLORIDE 5 MG TAB PO SCH ×2 (08:00→20:39)
[2020-03-09] MEDS: ENOXAPARIN INJ 40 MG/0.4 ML SYR SQ SCH ×2 (08:00→20:41)
[2020-03-09] MEDS: POLYETHYLENE (MIRALAX) 17 GM PACK PO SCH (08:00)
[2020-03-09] MEDS: MAGNESIUM CITRATE 296 ML/BTL PO STA ×2 (09:23→13:01)
[2020-03-09] MEDS: INSULIN ASPART 100 UNITS/ML 3 ML PEN SC SCH ×4 (09:33→20:54)
[2020-03-09] MEDS: INSULIN HUMAN NPH SC SCH (09:33)
--- NOTE | 2020-03-09 10:23 | Pharmacy Report ---
Glycemic Control Progress Note - Date of Service March 09, 2020 - Scope Glycemic Pharmacist consulted for glycemic control to write orders per [facility] inpatient glycemic control protocol. - Objective Accuchecks BSG(last 24 hours):: 03/08/20 03/08/20 03/08/20 11:14 16:16 16:20 Glucose 166 H POC Glucose 221 H 185 H 03/08/20 03/09/20 03/09/20 20:39 06:55 07:52 Glucose 144 H POC Glucose 211 H 138 H HbA1c:: Hemoglobin A1c 9.0 % (4.5-5.6) H 03/07/20 05:28 - Recent Pertinent Medications The patient is currently receiving: * Basal insulin: Lantus 40 units every 24 hours plus NPH 34 units in the morning * Correctional Insulin: Novolog Correction per scale ACHS Goal Range: Low 110 mg/dL - High 140 mg/dL Correction Factor: 15 mg/dL/unit * Prandial insulin: Per carb ratio of 1 unit per 5 grams CHO consumed - Outpatient Anti-Diabetic Meds Lantus 45 units HS plus Novolog 09/27/09 metformin 500 mg BID - Assessment & Plan ASSESSMENT: * See progress note from 03/06/20 for more background info, in short: * Pt receiving SQ basal bolus insulin regimen for hyperglycemia secondary to baseline DM (outpatient regimen on hold),stress/infection (patient COVID positive), and on dexamethasone 6 mg IV daily. * Patient is currently receiving an average of 121 units of insulin per day * 74 units of basal insulin * 47 units of prandial/correctional insulin * BSGs ranging 185 - 221 mg/dl over the past 24hrs * Changes needed to insulin regimen: * AM Fasting BSG = 138 mg/dl. This is in goal range for patient based on inpatient targets and co-morbidities. However, the patient's fasting BSGs have been trending downwards from 241-196-138 mg/dL. Will reduce basal slightly to 35 units (~10% reduction) due to downward trend. * Post-prandial BSGs are elevated but will continue current regimen since will increase NPH by 10 units to 45 units (0.4 units/kg). * Total daily dose = ~140 units. Increased NPH in order to achieve higher TDD. PLAN FOR INPATIENT GLYCEMIC CONTROL: * DECREASING Lantus to 35 units SQ HS plus INCREASING NPH to 45 units daily * Continuing correction factor of 15 mg/dl/unit * Continuing carb ratio of 1 unit per 5 grams CHO consumed * Continuing goal range of Low 110 mg/dL - High 140 mg/dL * Please note that the plan above was derived based on current level of insulin resistance and hospital stress. These recommendations are appropriate for inpatient admission only. Plan of care upon discharge will need to be reassessed to avoid potential outpatient hypo/hyperglycemia. Thank you.
--- NOTE | 2020-03-09 13:53 | Hospitalist Progress Note ---
Date of Service March 09, 2020 Assessment & Plan (1) COVID-19: covid 19 pneumonia Patient began with symptoms on 02/29/2020 and has had fevers, headache, poor appetite with poor p.o. intake, shortness of breath and cough. She contracted Covid-19 from caregivers to come to the house. Presented with hypoxia and acute kidney injury with multifocal pneumonia on admission. D-dimer is only minimally elevated at 520, do not suspect PE - supplemental O2 to keep pulse ox greater than 89% - dexamethasone 6 mg IV once daily x10-day course -was Not a candidate for remdesivir due to acute kidney injury, not this has improved but the pt declines -Discussed convalescent plasma with the patient and her daughter-daughter reconfirmed 03/08 that she will not want this (2) Hypoxic: Secondary to Covid-19 pneumonia as above with hypoxia O2, pulmonary toilet (3) HANNAH (acute kidney injury): resolved will restart losartan, stop ivf (4) Hyponatremia: improved (5) T2DM (type 2 diabetes mellitus): Hemoglobin A1c 6.8% in 10/2019 A1c 9.0 Insulin sliding scale with NovoLog Hold home metformin Continue Lantus Accu-Cheks before every meal and at bedtime Diabetic diet Glycemic consult placed (6) Vitamin D deficiency: Continue home vitamin D (7) Vitamin B12 deficiency: Continue home p.o. vitamin B12 supplement (8) Dyslipidemia: Continue home statin (9) Diabetic peripheral neuropathy: Continue Lyrica- (10) Epilepsy: No recent seizures Continue home Keppra, Dilantin, Lyrica (11) Essential tremor: Noted Continue beta-gigi (12) Hypertension: Blood pressures are creeping upward will restart losartan Continue home metoprolol and diltiazem Holding home losartan and HCTZ for acute kidney injury (13) Loss of memory: Mild Supportive care Watch for delirium (14) DVT prophylaxis: Lovenox 40 mg SQ twice daily She is a conditional code-does not want to be on a ventilator at all even during cardiac arrest, but is okay with CPR and medications otherwise during ACLS Admission and Anticipated Discharge Date Admission Date: March 06, 2020 Subjective Patient continues to improve still fairly significantly tachypneic and requiring oxygen. Nonproductive cough still with improving loss of taste or smell Review of Systems Review of Systems: Moderate respiratory distress and fatigue no headache, blurry or double vision no speech or swallowing issues no chest pain, pressure or palpitations Remains with shortness of breath, nonproductive cough no abdominal pain, nausea or vomiting, diarrhea or constipation no dysuria, hematuria or frequency no focal joint pain or swelling no back pain, CVA tenderness or radicular pain no bruising, bleeding or rashes no focal signs of weakness or numbness or altered sensation no complaints of anxiety or depression.. Physical Exam Physical Exam: The patient appeared in mild/moderate distress she is morbidly obese with a BMI of 47 Vital signs as documented. Head exam is normocephalic atraumatic no scleral icterus Neck is without JVD, thyromegaly, or carotid bruits. Lungs are fine rales heard bilaterally Cardiac exam, Rhythm is regular.. No murmurs heard. Abdominal exam reveals normal bowel sounds, soft non tender, no masses Extremities are nonedematous and both pedal pulses are present Neurologic exam is alert and oriented, no focal loss of strength or sensation Skin is without bruises or rashes Psychologically is without concerns for anxiety or depression. Results & Data Results & Data ([facility]) Vital Signs (Past 12 Hours) Vital Signs Temp Pulse Resp BP Pulse Ox 03/09/20 11:38 97.5 F L 61 18 172/78 H 95 03/09/20 07:09 98.1 F 60 18 174/88 H 95 03/09/20 04:00 97.3 F L 60 20 160/68 H 94 PG Care Time/CCT Total # of Minutes Spent Total Time Spent with Patient: Total time spent is greater than 50% in coordination of care (as documented) at patient's floor/unit and/or counseling patient: Coding Level of Care Code 69975 Subseq Hosp Care Lvl 3 Diagnoses COVID-19 U07.1 Hypoxic R09.02 HANNAH (acute kidney injury) N17.9 Hyponatremia E87.1 T2DM (type 2 diabetes mellitus) E11.9 Vitamin D deficiency E55.9 Vitamin B12 deficiency E53.8 Dyslipidemia E78.5 Diabetic peripheral neuropathy E11.42 Epilepsy G40.909 Essential tremor G25.0 Hypertension I10 Loss of memory R41.3 DVT prophylaxis Z29.9
[2020-03-09] MEDS ORDERED: MAGNESIUM HYDROXIDE SUSP 30 ML UDC PO ONE (13:59)
[2020-03-09] MEDS ORDERED: FUROSEMIDE 20 MG in SYRINGE 0 ML IV ONE (15:00)
[2020-03-09] MEDS: DOCUSATE SODIUM 100 MG CAP PO SCH (20:39)
[2020-03-09] MEDS: ATORVASTATIN 20 MG TAB PO SCH (20:41)
[2020-03-09] MEDS: INSULIN GLARGINE SOLOSTAR 100 UNITS/ML 3 ML PEN SC SCH (20:53)
[2020-03-10] MEDS: MAGNESIUM OXIDE 400 MG TAB PO SCH ×2 (08:15→20:19)
[2020-03-10] MEDS: CHOLECALCIFEROL 1,000 UNITS 25 MCG TAB PO SCH (08:15)
[2020-03-10] MEDS: VENLAFAXINE HCL XR 150 MG CAPXR PO SCH (08:15)
[2020-03-10] MEDS: METOPROLOL SUCC 50MG EXT REL TAB PO SCH (08:16)
[2020-03-10] MEDS: PANTOprazole 40 MG TAB PO SCH (08:17)
[2020-03-10] MEDS: ASPIRIN 81 MG ECTAB PO SCH (08:17)
[2020-03-10] MEDS: OXYBUTYNIN CHLORIDE 5 MG TAB PO SCH ×2 (08:17→20:14)
[2020-03-10] MEDS: LOSARTAN POTASSIUM 50 MG TAB PO SCH (08:17)
[2020-03-10] MEDS: PREGABALIN 150 MG CAP PO SCH ×2 (08:17→20:19)
[2020-03-10] MEDS: dilTIAZem HCL 180 MG CAPCR PO SCH (08:17)
[2020-03-10] MEDS: CYANOCOBALAMIN 500 MCG TABLET (VITAMIN B-12) PO SCH (08:18)
[2020-03-10] MEDS: levETIRAcetam 500 MG TAB PO SCH ×2 (08:20→20:17)
[2020-03-10] MEDS: POLYETHYLENE (MIRALAX) 17 GM PACK PO SCH (08:20)
[2020-03-10] MEDS: ENOXAPARIN INJ 40 MG/0.4 ML SYR SQ SCH ×2 (08:21→20:19)
[2020-03-10] MEDS: DEXAMETHASONE SOD PHOSPHATE 6 MG in SYRINGE 0 ML IV SCH (08:22)
[2020-03-10] MEDS: INSULIN ASPART 100 UNITS/ML 3 ML PEN SC SCH ×4 (09:29→21:20)
[2020-03-10] MEDS: INSULIN HUMAN NPH SC SCH (09:29)
[2020-03-10 10:01] LABS: BUN Creatinine Ratio 23.9 (10-20); Calcium 9.4 mg/dl (8.5-10.1); Creatinine Clr Calc Pharmacy 74.4 ml/min; Est GFR (African American) 84.8; Est GFR (Non-African American) 73.1; Potassium 3.9 mmol/L (3.5-5.1)
--- NOTE | 2020-03-10 17:45 | Hospitalist Progress Note ---
Date of Service March 10, 2020 Assessment & Plan (1) COVID-19: covid 19 pneumonia Patient began with symptoms on 02/29/2020 and has had fevers, headache, poor appetite with poor p.o. intake, shortness of breath and cough. She contracted Covid-19 from caregivers to come to the house. Presented with hypoxia and acute kidney injury with multifocal pneumonia on admission. D-dimer is only minimally elevated at 520, do not suspect PE - supplemental O2 to keep pulse ox greater than 89% - dexamethasone 6 mg IV once daily x10-day course -was Not a candidate for remdesivir due to acute kidney injury, not this has improved but the pt declines -Discussed convalescent plasma with the patient and her daughter-daughter reconfirmed 03/08 that she will not want this -family seems torn about her going to subacute facility vs rehab vs going home (2) Hypoxic: Secondary to Covid-19 pneumonia as above with hypoxia, lessening O2, pulmonary toilet (3) HANNAH (acute kidney injury): resolved will restart losartan, stop ivf (4) Hyponatremia: improved (5) T2DM (type 2 diabetes mellitus): Hemoglobin A1c 6.8% in 10/2019 A1c 9.0 Insulin sliding scale with NovoLog Hold home metformin Continue Lantus Accu-Cheks before every meal and at bedtime Diabetic diet Glycemic consult placed (6) Vitamin D deficiency: Continue home vitamin D (7) Vitamin B12 deficiency: Continue home p.o. vitamin B12 supplement (8) Dyslipidemia: Continue home statin (9) Diabetic peripheral neuropathy: Continue Lyrica- (10) Epilepsy: No recent seizures Continue home Keppra, Dilantin, Lyrica (11) Essential tremor: Noted Continue beta-gigi (12) Hypertension: Blood pressures are creeping upward will restart losartan Continue home metoprolol and diltiazem Holding home losartan and HCTZ for acute kidney injury (13) Loss of memory: Mild Supportive care Watch for delirium (14) DVT prophylaxis: Lovenox 40 mg SQ twice daily She is a conditional code-does not want to be on a ventilator at all even during cardiac arrest, but is okay with CPR and medications otherwise during ACLS Admission and Anticipated Discharge Date Admission Date: March 06, 2020 Subjective Lessening cough still with improving loss of taste or smell overall improving but functional status is at play to decide how well she moves around Review of Systems Review of Systems: lessening respiratory distress and fatigue no headache, blurry or double vision no speech or swallowing issues no chest pain, pressure or palpitations Remains with shortness of breath, nonproductive cough no abdominal pain, nausea or vomiting, diarrhea or constipation no dysuria, hematuria or frequency no focal joint pain or swelling no back pain, CVA tenderness or radicular pain no bruising, bleeding or rashes no focal signs of weakness or numbness or altered sensation no complaints of anxiety or depression.. Physical Exam Physical Exam: The patient appeared in mild/moderate distress she is morbidly obese with a BMI of 47 Vital signs as documented. Head exam is normocephalic atraumatic no scleral icterus Neck is without JVD, thyromegaly, or carotid bruits. Lungs are fine rales heard bilaterally Cardiac exam, Rhythm is regular.. No murmurs heard. Abdominal exam reveals normal bowel sounds, soft non tender, no masses Extremities are nonedematous and both pedal pulses are present Neurologic exam is alert and oriented, no focal loss of strength or sensation Skin is without bruises or rashes Psychologically is without concerns for anxiety or depression. Results & Data Results & Data ([facility]) Vital Signs (Past 12 Hours) Vital Signs Temp Pulse Pulse Resp BP Pulse Ox 03/10/20 16:00 98.1 F 55 L 20 173/90 H 93 03/10/20 15:00 49 L 03/10/20 08:00 97.7 F 60 18 165/77 H 93 PG Care Time/CCT Total # of Minutes Spent Total Time Spent with Patient: Total time spent is greater than 50% in coordination of care (as documented) at patient's floor/unit and/or counseling patient: Coding Level of Care Code 44201 Subseq Hosp Care Lvl 2 Diagnoses COVID-19 U07.1 Hypoxic R09.02 HANNAH (acute kidney injury) N17.9 Hyponatremia E87.1 T2DM (type 2 diabetes mellitus) E11.9 Vitamin D deficiency E55.9 Vitamin B12 deficiency E53.8 Dyslipidemia E78.5 Diabetic peripheral neuropathy E11.42 Epilepsy G40.909 Essential tremor G25.0 Hypertension I10 Loss of memory R41.3 DVT prophylaxis Z29.9
[2020-03-10] MEDS: DOCUSATE SODIUM 100 MG CAP PO SCH (20:13)
[2020-03-10] MEDS: ATORVASTATIN 20 MG TAB PO SCH (20:18)
[2020-03-10] MEDS: INSULIN GLARGINE SOLOSTAR 100 UNITS/ML 3 ML PEN SC SCH (21:20)
[2020-03-11 07:14] LABS: BUN Creatinine Ratio 30.8 (10-20); Calcium 9.8 mg/dl (8.5-10.1); Creatinine Clr Calc Pharmacy 108.3 ml/min; Est GFR (African American) 108.5; Est GFR (Non-African American) 93.6
[2020-03-11] MEDS: POLYETHYLENE (MIRALAX) 17 GM PACK PO SCH (08:50)
[2020-03-11] MEDS: PANTOprazole 40 MG TAB PO SCH (09:03)
[2020-03-11] MEDS: MAGNESIUM OXIDE 400 MG TAB PO SCH ×2 (09:03→21:00)
[2020-03-11] MEDS: DEXAMETHASONE SOD PHOSPHATE 6 MG in SYRINGE 0 ML IV SCH (09:03)
[2020-03-11] MEDS: LOSARTAN POTASSIUM 50 MG TAB PO SCH (09:03)
[2020-03-11] MEDS: CHOLECALCIFEROL 1,000 UNITS 25 MCG TAB PO SCH (09:03)
[2020-03-11] MEDS: ASPIRIN 81 MG ECTAB PO SCH (09:04)
[2020-03-11] MEDS: METOPROLOL SUCC 50MG EXT REL TAB PO SCH (09:04)
[2020-03-11] MEDS: CYANOCOBALAMIN 500 MCG TABLET (VITAMIN B-12) PO SCH (09:04)
[2020-03-11] MEDS: ENOXAPARIN INJ 40 MG/0.4 ML SYR SQ SCH ×2 (09:05→21:02)
[2020-03-11] MEDS: VENLAFAXINE HCL XR 150 MG CAPXR PO SCH (09:06)
[2020-03-11] MEDS: dilTIAZem HCL 180 MG CAPCR PO SCH (09:06)
[2020-03-11] MEDS: levETIRAcetam 500 MG TAB PO SCH ×2 (09:06→21:01)
[2020-03-11] MEDS: OXYBUTYNIN CHLORIDE 5 MG TAB PO SCH ×2 (09:06→21:01)
[2020-03-11] MEDS: INSULIN ASPART 100 UNITS/ML 3 ML PEN SC SCH ×4 (09:23→22:09)
[2020-03-11] MEDS: INSULIN HUMAN NPH SC SCH (09:23)
[2020-03-11] MEDS: PREGABALIN 150 MG CAP PO SCH ×2 (09:45→21:02)
--- NOTE | 2020-03-11 09:48 | Hospitalist Progress Note ---
Date of Service March 11, 2020 Assessment & Plan (1) COVID-19: covid 19 pneumonia Patient began with symptoms on 02/29/2020 and has had fevers, headache, poor appetite with poor p.o. intake, shortness of breath and cough. She contracted Covid-19 from caregivers to come to the house. Presented with hypoxia and acute kidney injury with multifocal pneumonia on admission. D-dimer is only minimally elevated at 520, do not suspect PE - supplemental O2 to keep pulse ox greater than 89%, stable on 2L today - dexamethasone 6 mg IV once daily, day 6 today -was Not a candidate for remdesivir due to acute kidney injury -Discussed convalescent plasma with the patient and her daughter-daughter r econfirmed 03/08 that she will not want this -family seems torn about her going to subacute facility vs rehab vs going home last time she was evaluated was 03/08, will try for repeat evaluations to see if she is stronger still 1-2 days away from being ready for discharge medically (2) Hypoxic: Secondary to Covid-19 pneumonia as above improving, down to 2L, no distress at rest (3) HANNAH (acute kidney injury): resolved Losartan resumes, eating and drinking well (4) Hyponatremia: resolved, 138 today (5) T2DM (type 2 diabetes mellitus): Hemoglobin A1c 6.8% in 10/2019 A1c 9.0 Insulin sliding scale with NovoLog Hold home metformin Continue Lantus Accu-Cheks before every meal and at bedtime Diabetic diet Glycemic consult placed on NPH 45 units qAM, sugars well controlled (6) Vitamin D deficiency: Continue home vitamin D (7) Vitamin B12 deficiency: Continue home p.o. vitamin B12 supplement (8) Dyslipidemia: Continue home statin (9) Diabetic peripheral neuropathy: Continue Lyrica- (10) Epilepsy: No recent seizures Continue home Keppra, Dilantin, Lyrica (11) Essential tremor: Noted Continue beta-gigi (12) Hypertension: BP up this morning prior to medications continue losartan Continue home metoprolol and diltiazem (13) Loss of memory: Mild Supportive care Watch for delirium (14) DVT prophylaxis: Lovenox 40 mg SQ twice daily She is a conditional code-does not want to be on a ventilator at all even during cardiac arrest, but is okay with CPR and medications otherwise during ACLS Admission and Anticipated Discharge Date Admission Date: March 06, 2020 Subjective patient feeling well, sitting up in her chair, ate her whole breakfast, now drinking coffee no dyspnea, no cough, no fever/chills, no chest pain she moved her bowels yesterday, no GI symptoms reviewed chart reviewed labs, Cr 0.5 and electrolytes stable, sugars stable on NPH insulin in the morning discussed home vs rehab, she prefers home but if therapy recommends rehab she would agree will try to get updated therapy evals today, last seen 03/08 Review of Systems Review of Systems: All systems reviewed & are unremarkable except as noted in Subjective Physical Exam Constitutional: well developed, + obese and comfortable; no acute distress Neck: trachea midline, no thyromegaly Respiratory: normal respiratory effort, lungs clear to auscultation Cardiovascular: Rate/Rhythm: regular rhythm and + bradycardic Heart Sounds: normal S1 and normal S2; no murmur Extremities: normal capillary refill; no edema Gastrointestinal (Abdomen): normal bowel sounds, soft, nontender, no hepatosplenomegaly Musculoskeletal: no cyanosis or clubbing, extremities motor strength 5/5 Skin: no rashes, warm and dry Neurologic: patellar DTR's 2+ bilat, sensation intact and PERRL, EOMI, accommodation nl, no face palsy, no dysarthria Psychiatric: A+Ox3, euthymic affect Lymphatic: no cervical or axillary lymphadenopathy Results & Data Results & Data ([facility]) Vital Signs (Past 12 Hours) Vital Signs Temp Pulse Resp BP Pulse Ox 03/11/20 04:00 36.6 C 48 L 20 195/79 H 94 03/10/20 23:00 36.9 C 44 L 20 174/76 H 92 Laboratory Results Laboratory Results - last 24 hr 03/10/20 03/10/20 03/10/20 09:16 12:29 17:06 Sodium 140 Potassium 3.9 Chloride 103 Carbon Dioxide 30 Anion Gap 7.0 BUN 19 H Creatinine 0.80 Est Cr Clr Drug Dosing 74.4 Est GFR ( Amer) 84.8 Est GFR (Non-Af Amer) 73.1 BUN/Creatinine Ratio 23.9 H Glucose 173 H POC Glucose 148 H 184 H Calcium 9.4 03/10/20 03/11/20 03/11/20 19:44 06:15 08:45 Sodium 138 Potassium 4.0 Chloride 101 Carbon Dioxide 30 Anion Gap 7.0 BUN 17 Creatinine 0.54 L Est Cr Clr Drug Dosing 108.3 Est GFR ( Amer) 108.5 Est GFR (Non-Af Amer) 93.6 BUN/Creatinine Ratio 30.8 H Glucose 105 H POC Glucose 181 H 117 H Calcium 9.8 Medications Administered Current Inpatient Medications Acetaminophen (Acetaminophen 500 Mg Tab) 500 mg PO Q6H PRN PRN Reason: Pain Stop: 04/05/20 20:25 Aspirin (Aspirin 81 Mg Ectab) [facility] [place] Stop: 04/06/20 08:59 Last Admin: 03/11/20 09:04 Dose: 81 mg Documented by: Atorvastatin Calcium (Atorvastatin 20 Mg Tab) 20 mg PO [facility] Stop: 04/05/20 20:59 Last Admin: 03/10/20 20:18 Dose: 20 mg Documented by: Cetirizine HCl (Cetirizine Hcl 10 Mg Tablet) 10 mg PO DAILY PRN PRN Reason: Allergy Symptoms Stop: 04/05/20 20:02 Cyanocobalamin (Cyanocobalamin 500 Mcg Tablet (Vitamin B-12)) 1,000 mcg PO DAILY [facility] Stop: 04/06/20 08:59 Last Admin: 03/11/20 09:04 Dose: 1,000 mcg Documented by: Dextrose (Dextrose 50% 50 Ml Syringe) 25 - 50 ml IV UD PRN; Protocol PRN Reason: Hypoglycemia Protocol Stop: 04/05/20 20:02 Diltiazem HCl (Diltiazem Hcl 180 Mg Capcr) [facility] [place] Stop: 04/06/20 08:59 Last Admin: 03/11/20 09:06 Dose: Not Given Documented by: Docusate Sodium (Docusate Sodium 100 Mg Cap) 200 mg PO HS [facility] Stop: 04/05/20 20:59 Last Admin: 03/10/20 20:13 Dose: 200 mg Documented by: Enoxaparin Sodium (Enoxaparin Inj 40 Mg/0.4 Ml Syr) 40 mg SQ Q12H [facility] Stop: 04/05/20 20:59 Last Admin: 03/11/20 09:05 Dose: 40 mg Documented by: Glucagon (Glucagon For Inj 1 Mg Vial) 1 mg SQ UD PRN; Protocol PRN Reason: Hypoglycemia Protocol Stop: 04/05/20 20:02 Glucose (Glucose 10 Tabs/Tube) 4 - 8 tabs PO UD PRN; Protocol PRN Reason: Hypoglycemia Protocol Stop: 04/05/20 20:02 Glucose (Glucose 40% Gel 15 Gm Tube) 15 - 30 gm PO UD PRN; Protocol PRN Reason: Hypoglycemia Protocol Stop: 04/05/20 20:02 Dexamethasone Sodium Phosphate (6 mg/ Syringe) 1.5 mls @ 1 mls/min IV QAM [facility] Stop: 04/06/20 08:59 Last Admin: 03/11/20 09:03 Dose: 1 mls/min Documented by: Insulin Aspart (Insulin Aspart 100 Units/Ml 3 Ml Pen) 0 units SC ACHS [facility] Stop: 04/05/20 20:59 Last Admin: 03/11/20 09:23 Dose: 15 units Documented by: Insulin Glargine (Insulin Glargine Solostar 100 Units/Ml 3 Ml Pen) 35 units SC HS [facility] Stop: 04/08/20 20:59 Last Admin: 03/10/20 21:20 Dose: 35 units Documented by: Insulin Human NPH (Insulin Human Nph) 45 units SC DAILY [facility] Stop: 04/08/20 08:59 Last Admin: 03/11/20 09:23 Dose: 45 units Documented by: Levetiracetam (Levetiracetam 500 Mg Tab) 500 mg PO BID [facility] Stop: 04/06/20 08:59 Last Admin: 03/11/20 09:06 Dose: 500 mg Documented by: Losartan Potassium (Losartan Potassium 50 Mg Tab) 50 mg PO QAM [facility] Stop: 04/09/20 08:59 Last Admin: 03/11/20 09:03 Dose: 50 mg Documented by: Magnesium Oxide (Magnesium Oxide 400 Mg Tab) 400 mg PO BID [facility] Stop: 04/08/20 20:59 Last Admin: 03/11/20 09:03 Dose: 400 mg Documented by: Metoprolol Succinate (Metoprolol Succ 50mg Ext Rel Tab) 50 mg PO QAM [facility] Stop: 04/06/20 08:59 Last Admin: 03/11/20 09:04 Dose: Not Given Documented by: Miconazole Nitrate (Miconazole Nitrate Powder 43 Gm) 1 appln EXT PRN PRN PRN Reason: Affected Skin Folds Stop: 04/05/20 20:12 Miscellaneous (Carbohydrates For Hypoglycemia ) 15 - 30 gm PO UD PRN PRN Reason: Hypoglycemia Protocol Stop: 04/05/20 20:02 Miscellaneous Information (Pharmacy Glycemic Mgmt Consult) 1 ea N/A UD PRN; Protocol PRN Reason: Consult Stop: 04/05/20 20:31 Ondansetron HCl (Ondansetron Inj 2 Mg/Ml 2 Ml Vial) 4 mg IV Q6H PRN PRN Reason: Nausea Stop: 04/05/20 20:02 Oxybutynin Chloride (Oxybutynin Chloride 5 Mg Tab) 5 mg PO BID [facility] Stop: 04/05/20 20:59 Last Admin: 03/11/20 09:06 Dose: 5 mg Documented by: Pantoprazole Sodium (Pantoprazole 40 Mg Tab) 40 mg PO QAM [facility] Stop: 04/06/20 08:59 Last Admin: 03/11/20 09:03 Dose: 40 mg Documented by: Polyethylene Glycol (Polyethylene (Miralax) 17 Gm Pack) 17 gm PO QAM [facility] Stop: 04/06/20 08:59 Last Admin: 03/11/20 08:50 Dose: 17 gm Documented by: Pregabalin (Pregabalin 150 Mg Cap) 150 mg PO BID [facility] Stop: 04/05/20 20:59 Last Admin: 03/11/20 09:45 Dose: 150 mg Documented by: Venlafaxine HCl (Venlafaxine Hcl Xr 150 Mg Capxr) 150 mg PO QAM [facility] Stop: 04/06/20 08:59 Last Admin: 03/11/20 09:06 Dose: 150 mg Documented by: Vitamin D (Cholecalciferol 1,000 Units 25 Mcg Tab) 2,000 units PO QAM [facility] Stop: 04/06/20 08:59 Last Admin: 03/11/20 09:03 Dose: 2,000 units Documented by: PG Care Time/CCT Total # of Minutes Spent Total Time Spent with Patient: Total time spent is greater than 50% in coordination of care (as documented) at patient's floor/unit and/or counseling patient: Coding Level of Care Code 89329 Subseq Hosp Care Lvl 3 Diagnoses COVID-19 U07.1 Hypoxic R09.02 HANNAH (acute kidney injury) N17.9 Hyponatremia E87.1 T2DM (type 2 diabetes mellitus) E11.9 Vitamin D deficiency E55.9 Vitamin B12 deficiency E53.8 Dyslipidemia E78.5 Diabetic peripheral neuropathy E11.42 Epilepsy G40.909 Essential tremor G25.0 Hypertension I10 Loss of memory R41.3 DVT prophylaxis Z29.9
[2020-03-11] MEDS: INSULIN GLARGINE SOLOSTAR 100 UNITS/ML 3 ML PEN SC SCH (20:30)
[2020-03-11] MEDS: ATORVASTATIN 20 MG TAB PO SCH (21:00)
[2020-03-11] MEDS: DOCUSATE SODIUM 100 MG CAP PO SCH (21:02)
[2020-03-12] MEDS ORDERED: INSULIN ASPART 100 UNITS/ML 3 ML PEN SC SCH
[2020-03-12] MEDS: POLYETHYLENE (MIRALAX) 17 GM PACK PO SCH (08:14)
[2020-03-12] MEDS: levETIRAcetam 500 MG TAB PO SCH ×2 (08:15→20:35)
[2020-03-12] MEDS: MAGNESIUM OXIDE 400 MG TAB PO SCH ×2 (08:15→20:36)
[2020-03-12] MEDS: OXYBUTYNIN CHLORIDE 5 MG TAB PO SCH ×2 (08:15→20:35)
[2020-03-12] MEDS: PREGABALIN 150 MG CAP PO SCH ×2 (08:15→20:47)
[2020-03-12] MEDS: CYANOCOBALAMIN 500 MCG TABLET (VITAMIN B-12) PO SCH (08:28)
[2020-03-12] MEDS: ASPIRIN 81 MG ECTAB PO SCH (08:29)
[2020-03-12] MEDS: CHOLECALCIFEROL 1,000 UNITS 25 MCG TAB PO SCH (08:29)
[2020-03-12] MEDS: VENLAFAXINE HCL XR 150 MG CAPXR PO SCH (08:30)
[2020-03-12] MEDS: PANTOprazole 40 MG TAB PO SCH (08:30)
[2020-03-12] MEDS: LOSARTAN POTASSIUM 50 MG TAB PO SCH (08:31)
[2020-03-12] MEDS: ENOXAPARIN INJ 40 MG/0.4 ML SYR SQ SCH ×2 (08:32→20:36)
[2020-03-12] MEDS: dilTIAZem HCL 180 MG CAPCR PO SCH (08:33)
[2020-03-12] MEDS: METOPROLOL SUCC 50MG EXT REL TAB PO SCH (08:34)
[2020-03-12] MEDS: DEXAMETHASONE SOD PHOSPHATE 6 MG in SYRINGE 0 ML IV SCH (08:58)
[2020-03-12] MEDS: INSULIN ASPART 100 UNITS/ML 3 ML PEN SC SCH ×4 (09:40→20:53)
[2020-03-12] MEDS: INSULIN HUMAN NPH SC SCH (09:46)
--- NOTE | 2020-03-12 10:47 | Pharmacy Report ---
Pharmacy Glycemic Short Note 2 - Date of Service March 12, 2020 - Glycemic Short BSG Results (Last 24 hours): 03/11/20 03/11/20 03/11/20 11:58 11:59 17:20 POC Glucose 325 H* 294 H 195 H 03/11/20 03/12/20 03/12/20 21:00 00:38 07:56 POC Glucose 173 H 153 H 96 OUTPATIENT ANTIDIABETIC REGIMEN: * Lantus 45 units SC HS * Novolog TIDM (8 units with breakfast, 6 units with lunch, and 10 units with dinner) * Metformin 500 mg PO BIDM * HbA1c: 6.8% (11/15/19), recheck pending for tomorrow ASSESSMENT: 03/12: * Patient received total of 128 units of insulin yesterday, of which 80 were basal insulin * Fasting BSG 96 mg/dL - plan to scale back slightly on evening Lantus as fasting BSG trending downward * Continue same CF/CR for now. Had tightened CR yesterday due to spike in BSG at lunch time PLAN FOR INPATIENT GLYCEMIC CONTROL: * Hold outpatient oral diabetes medications * Basal insulin: * Lantus 30 units HS * NPH 45 units QAM with Dexamethasone IV * Bolus insulin: * NovoLog per scale ACHS or Q6hrs while NPO * Goal Range: Low 110 mg/dL - High 140 mg/dL * Correction Factor: 15 mg/dL/unit * Nutritional / Prandial insulin per carb ratio of 1 unit per 4 grams CHO consumed PLAN FOR DISCHARGE: * HbA1c = 9% * Goal HbA1c is less than 8%. * educator senior clinical spoke to patient. She has been compliant with her meds and insulin per report. A1c at goal back in October 2019 (6.8%). * Patient does report having difficulty pressing the injector on the insulin pens sometimes d/t neuropathy. * Since patient resides at [facility], recommend caregiver helps to make sure she is receiving all the insulin doses currently prescribed before making any adjustment to home doses of Lantus and Novolog. Close follow up with outpa tient diabetes provider for dose adjustments.
--- NOTE | 2020-03-12 15:09 | Hospitalist Progress Note ---
Date of Service March 12, 2020 Assessment & Plan (1) COVID-19: covid 19 pneumonia Patient began with symptoms on 02/29/2020 and has had fevers, headache, poor appetite with poor p.o. intake, shortness of breath and cough. She contracted Covid-19 from caregivers to come to the house. Presented with hypoxia and acute kidney injury with multifocal pneumonia on admission. D-dimer was only minimally elevated at 520, do not suspect PE - supplemental O2 to keep pulse ox greater than 89%, stable on 2L for past few days, continue to try to titrate - dexamethasone 6 mg IV once daily, day 7 today -was Not a candidate for remdesivir due to acute kidney injury -Discussed convalescent plasma with the patient and her daughter-daughter reconfirmed 03/08 that she will not want this patient improving today, walked 120 feet with therapy daughter plans to take her home later this week, is likely (2) Hypoxic: Secondary to Covid-19 pneumonia as above improving, down to 2L, no distress at rest or on exertion try to wean off oxygen consider two step if still on oxygen in two days (3) HANNAH (acute kidney injury): resolved Losartan resumed, eating and drinking well (4) Hyponatremia: resolved (5) T2DM (type 2 diabetes mellitus): Hemoglobin A1c 6.8% in 10/2019 A1c 9.0 Insulin sliding scale with NovoLog Hold home metformin Continue Lantus Accu-Cheks before every meal and at bedtime Diabetic diet Glycemic consult placed on NPH 45 units qAM, sugars well controlled, monitor for hypoglycemia (6) Vitamin D deficiency: Continue home vitamin D (7) Vitamin B12 deficiency: Continue home p.o. vitamin B12 supplement (8) Dyslipidemia: Continue home statin (9) Diabetic peripheral neuropathy: Continue Lyrica- (10) Epilepsy: No recent seizures Continue home Keppra, Dilantin, Lyrica (11) Essential tremor: Noted Continue beta-gigi (12) Hypertension: continue losartan Continue home metoprolol and diltiazem (13) Loss of memory: Mild Supportive care Watch for delirium (14) DVT prophylaxis: Lovenox 40 mg SQ twice daily She is a conditional code-does not want to be on a ventilator at all even during cardiac arrest, but is okay with CPR and medications otherwise during ACLS Admission and Anticipated Discharge Date Admission Date: March 06, 2020 Subjective patient doing well today, no new issues, breathing well, eating well she is really please, she walked 120 feet around RN station d/w her daughter, she would like to take her home later this week typically with care givers but they will be on hold due to COVID, she has arranged for family to be with her Review of Systems Review of Systems: All systems reviewed & are unremarkable except as noted in Subjective Physical Exam Constitutional: well developed, + obese and comfortable; no acute distress Neck: trachea midline, no thyromegaly Respiratory: normal respiratory effort, lungs clear to auscultation Cardiovascular: Rate/Rhythm: regular rhythm and + bradycardic Heart Sounds: normal S1 and normal S2; no murmur Extremities: normal capillary refill; no edema Gastrointestinal (Abdomen): normal bowel sounds, soft, nontender, no hepatosplenomegaly Musculoskeletal: no cyanosis or clubbing, extremities motor strength 5/5 Skin: no rashes, warm and dry Neurologic: patellar DTR's 2+ bilat, sensation intact and PERRL, EOMI, accommodation nl, no face palsy, no dysarthria Psychiatric: A+Ox3, euthymic affect Lymphatic: no cervical or axillary lymphadenopathy Results & Data Results & Data ([facility]) Vital Signs (Past 12 Hours) Vital Signs Temp Pulse Resp BP Pulse Ox 03/12/20 14:49 94 03/12/20 10:21 36.7 C 78 18 122/73 97 03/12/20 08:01 36.5 C 59 L 20 194/80 H 91 Laboratory Results Laboratory Results - last 24 hr 03/11/20 03/11/20 03/12/20 17:20 21:00 00:38 POC Glucose 195 H 173 H 153 H 03/12/20 03/12/20 07:56 12:03 POC Glucose 96 130 H Medications Administered Current Inpatient Medications Acetaminophen (Acetaminophen 500 Mg Tab) 500 mg PO Q6H PRN PRN Reason: Pain Stop: 04/05/20 20:25 Aspirin (Aspirin 81 Mg Ectab) [facility] [place] [facility]: 04/06/20 08:59 Last Admin: 03/12/20 08:29 Dose: 81 mg Documented by: Atorvastatin Calcium (Atorvastatin 20 Mg Tab) 20 mg PO HS [facility] Stop: 04/05/20 20:59 Last Admin: 03/11/20 21:00 Dose: 20 mg Documented by: Cetirizine HCl (Cetirizine Hcl 10 Mg Tablet) 10 mg PO DAILY PRN PRN Reason: Allergy Symptoms Stop: 04/05/20 20:02 Cyanocobalamin (Cyanocobalamin 500 Mcg Tablet (Vitamin B-12)) 1,000 mcg PO DAILY [facility] Stop: 04/06/20 08:59 Last Admin: 03/12/20 08:28 Dose: 1,000 mcg Documented by: Dextrose (Dextrose 50% 50 Ml Syringe) 25 - 50 ml IV UD PRN; Protocol PRN Reason: Hypoglycemia Protocol Stop: 04/05/20 20:02 Diltiazem HCl (Diltiazem Hcl 180 Mg Capcr) 180 mg PO QAM [facility] Stop: 04/06/20 08:59 Last Admin: 03/12/20 08:33 Dose: 180 mg Documented by: Docusate Sodium (Docusate Sodium 100 Mg Cap) 200 mg PO HS [facility] Stop: 04/05/20 20:59 Last Admin: 03/11/20 21:02 Dose: 200 mg Documented by: Enoxaparin Sodium (Enoxaparin Inj 40 Mg/0.4 Ml Syr) 40 mg SQ Q12H [facility] Stop: 04/05/20 20:59 Last Admin: 03/12/20 08:32 Dose: 40 mg Documented by: Glucagon (Glucagon For Inj 1 Mg Vial) 1 mg SQ UD PRN; Protocol PRN Reason: Hypoglycemia Protocol Stop: 04/05/20 20:02 Glucose (Glucose 10 Tabs/Tube) 4 - 8 tabs PO UD PRN; Protocol PRN Reason: Hypoglycemia Protocol Stop: 04/05/20 20:02 Glucose (Glucose 40% Gel 15 Gm Tube) 15 - 30 gm PO UD PRN; Protocol PRN Reason: Hypoglycemia Protocol Stop: 04/05/20 20:02 Dexamethasone Sodium Phosphate (6 mg/ Syringe) 1.5 mls @ 1 mls/min IV QAM [facility] Stop: 04/06/20 08:59 Last Admin: 03/12/20 08:58 Dose: 1 mls/min Documented by: Insulin Aspart (Insulin Aspart 100 Units/Ml 3 Ml Pen) 0 units SC ACHS [facility]; Protocol Stop: 04/05/20 20:59 Last Admin: 03/12/20 13:20 Dose: 12 units Documented by: Insulin Glargine (Insulin Glargine Solostar 100 Units/Ml 3 Ml Pen) 30 units SC HS [facility]; Protocol Stop: 04/11/20 20:59 Insulin Human NPH (Insulin Human Nph) 45 units SC DAILY [facility]; Protocol Stop: 04/08/20 08:59 Last Admin: 03/12/20 09:46 Dose: 45 units Documented by: Levetiracetam (Levetiracetam 500 Mg Tab) 500 mg PO BID [facility] Stop: 04/06/20 08:59 Last Admin: 03/12/20 08:15 Dose: 500 mg Documented by: Losartan Potassium (Losartan Potassium 50 Mg Tab) 50 mg PO QAM [facility] Stop: 04/09/20 08:59 Last Admin: 03/12/20 08:31 Dose: 50 mg Documented by: Magnesium Oxide (Magnesium Oxide 400 Mg Tab) 400 mg PO BID [facility] Stop: 04/08/20 20:59 Last Admin: 03/12/20 08:15 Dose: 400 mg Documented by: Metoprolol Succinate (Metoprolol Succ 50mg Ext Rel Tab) [facility] [place] Stop: 04/06/20 08:59 Last Admin: 03/12/20 08:34 Dose: 50 mg Documented by: Miconazole Nitrate (Miconazole Nitrate Powder 43 Gm) 1 appln EXT PRN PRN PRN Reason: Affected Skin Folds Stop: 04/05/20 20:12 Miscellaneous (Carbohydrates For Hypoglycemia ) 15 - 30 gm PO UD PRN PRN Reason: Hypoglycemia Protocol Stop: 04/05/20 20:02 Miscellaneous Information (Pharmacy Glycemic Mgmt Consult) 1 ea N/A UD PRN; Protocol PRN Reason: Consult Stop: 04/05/20 20:31 Ondansetron HCl (Ondansetron Inj 2 Mg/Ml 2 Ml Vial) 4 mg IV Q6H PRN PRN Reason: Nausea Stop: 04/05/20 20:02 Oxybutynin Chloride (Oxybutynin Chloride 5 Mg Tab) 5 mg PO BID [facility] Stop: 04/05/20 20:59 Last Admin: 03/12/20 08:15 Dose: 5 mg Documented by: Pantoprazole Sodium (Pantoprazole 40 Mg Tab) 40 mg PO QAM [facility] Stop: 04/06/20 08:59 Last Admin: 03/12/20 08:30 Dose: 40 mg Documented by: Polyethylene Glycol (Polyethylene (Miralax) 17 Gm Pack) 17 gm PO QAM [facility] Stop: 04/06/20 08:59 Last Admin: 03/12/20 08:14 Dose: 17 gm Documented by: Pregabalin (Pregabalin 150 Mg Cap) 150 mg PO BID [facility] Stop: 04/05/20 20:59 Last Admin: 03/12/20 08:15 Dose: 150 mg Documented by: Venlafaxine HCl (Venlafaxine Hcl Xr 150 Mg Capxr) 150 mg PO QAM [facility] Stop: 04/06/20 08:59 Last Admin: 03/12/20 08:30 Dose: 150 mg Documented by: Vitamin D (Cholecalciferol 1,000 Units 25 Mcg Tab) 2,000 units PO QAM [facility] Stop: 04/06/20 08:59 Last Admin: 03/12/20 08:29 Dose: 2,000 units Documented by: PG Care Time/CCT Total # of Minutes Spent Total Time Spent with Patient: Total time spent is greater than 50% in coordination of care (as documented) at patient's floor/unit and/or counseling patient: Coding Level of Care Code 53539 Subseq Hosp Care Lvl 2 Diagnoses COVID-19 U07.1 Hypoxic R09.02 HANNAH (acute kidney injury) N17.9 Hyponatremia E87.1 T2DM (type 2 diabetes mellitus) E11.9 Vitamin D deficiency E55.9 Vitamin B12 deficiency E53.8 Dyslipidemia E78.5 Diabetic peripheral neuropathy E11.42 Epilepsy G40.909 Essential tremor G25.0 Hypertension I10 Loss of memory R41.3 DVT prophylaxis Z29.9
[2020-03-12] MEDS: DOCUSATE SODIUM 100 MG CAP PO SCH (20:30)
[2020-03-12] MEDS: ATORVASTATIN 20 MG TAB PO SCH (20:35)
[2020-03-12] MEDS: INSULIN GLARGINE SOLOSTAR 100 UNITS/ML 3 ML PEN SC SCH (20:53)
[2020-03-13] MEDS: dilTIAZem HCL 180 MG CAPCR PO SCH (09:43)
[2020-03-13] MEDS: OXYBUTYNIN CHLORIDE 5 MG TAB PO SCH ×2 (09:44→21:28)
[2020-03-13] MEDS: LOSARTAN POTASSIUM 50 MG TAB PO SCH (09:44)
[2020-03-13] MEDS: VENLAFAXINE HCL XR 150 MG CAPXR PO SCH (09:44)
[2020-03-13] MEDS: ASPIRIN 81 MG ECTAB PO SCH (09:44)
[2020-03-13] MEDS: ENOXAPARIN INJ 40 MG/0.4 ML SYR SQ SCH ×2 (09:45→21:28)
[2020-03-13] MEDS: PREGABALIN 150 MG CAP PO SCH ×2 (09:46→21:33)
[2020-03-13] MEDS: MAGNESIUM OXIDE 400 MG TAB PO SCH ×2 (09:47→21:28)
[2020-03-13] MEDS: METOPROLOL SUCC 50MG EXT REL TAB PO SCH (09:47)
[2020-03-13] MEDS: POLYETHYLENE (MIRALAX) 17 GM PACK PO SCH (09:47)
[2020-03-13] MEDS: PANTOprazole 40 MG TAB PO SCH (09:47)
[2020-03-13] MEDS: CYANOCOBALAMIN 500 MCG TABLET (VITAMIN B-12) PO SCH (09:47)
[2020-03-13] MEDS: CHOLECALCIFEROL 1,000 UNITS 25 MCG TAB PO SCH (09:48)
[2020-03-13] MEDS: DEXAMETHASONE SOD PHOSPHATE 6 MG in SYRINGE 0 ML IV SCH (09:51)
[2020-03-13] MEDS: INSULIN HUMAN NPH SC SCH (09:59)
[2020-03-13] MEDS: INSULIN ASPART 100 UNITS/ML 3 ML PEN SC SCH ×4 (10:02→21:29)
[2020-03-13] MEDS: levETIRAcetam 500 MG TAB PO SCH ×2 (11:04→21:28)
--- NOTE | 2020-03-13 11:23 | Pharmacy Report ---
Pharmacy Glycemic Short Note 2 - Date of Service March 13, 2020 - Glycemic Short BSG Results (Last 24 hours): OUTPATIENT ANTIDIABETIC REGIMEN: * Lantus 45 units SC HS * Novolog TIDM (8 units with breakfast, 6 units with lunch, and 10 units with dinner) * Metformin 500 mg PO BIDM * HbA1c: 6.8% (11/15/19), recheck pending for tomorrow ASSESSMENT: 03/13: * Esthela received a total of 119 units of insulin yesterday * 75 units basal + 44 units bolus * BSGs ranged 96 - 169 - controlled * Fasting BSG was 98 mg/dL this AM - below goal * This is a very slight increase from yesterday's fasting BSG * Remains on Dexamethasone 6 mg IV daily (Day #10/01) * Will not adjust basal insulin for today * BSGs trending up throughout the day which may indicate insufficient carb coverage * Tightened carb ratio this AM 03/12: * Patient received total of 128 units of insulin yesterday, of which 80 were basal insulin * Fasting BSG 96 mg/dL - plan to scale back slightly on evening Lantus as fasting BSG trending downward * Continue same CF/CR for now. Had tightened CR yesterday due to spike in BSG at lunch time PLAN FOR INPATIENT GLYCEMIC CONTROL: * Hold outpatient oral diabetes medications * Basal insulin - no change * Lantus 30 units HS * NPH 45 units QAM with Dexamethasone IV * Bolus insulin - tightened CR * NovoLog per scale ACHS or Q6hrs while NPO * Goal Range: Low 110 mg/dL - High 140 mg/dL * Correction Factor: 15 mg/dL/unit * Nutritional / Prandial insulin per carb ratio of 1 unit per 3 grams CHO consumed PLAN FOR DISCHARGE: * HbA1c = 9% * Goal HbA1c is less than 8%. * gold assayer spoke to patient. She has been compliant with her meds and insulin per report. A1c at goal back in October 2019 (6.8%). * Patient does report having difficulty pressing the injector on the insulin pens sometimes d/t neuropathy. * Since patient resides at [facility], recommend caregiver helps to make sure she is receiving all the insulin doses currently prescribed before making any adjustment to home doses of Lantus and Novolog. Close follow up with outpatient diabetes provider for dose adjustments.
--- NOTE | 2020-03-13 18:41 | Hospitalist Progress Note ---
Date of Service March 13, 2020 Assessment & Plan (1) COVID-19: Onset of symptoms 02/29/2020 Developed symptoms after contact with caregivers Multifocal pneumonia on admission No indication of bacterial involvement. No antibiotics. Continues to require supplemental O2. Continue to titrate as tolerated Currently day #8 of dexamethasone. Discontinue on discharge No convalescent plasma per discussion with family and patient Continue supportive care (2) Hypoxic: Patient continues to require 2 L/min of supplemental oxygen Will perform two-step evaluation to see if she needs oxygen on discharge Patient denies previous home oxygen use No shortness of breath Continue to follow (3) HANNAH (acute kidney injury): Resolved. Creatinine 0.54 (4) Hyponatremia: Resolved. Sodium 138 mmol/L (5) T2DM (type 2 diabetes mellitus): Continue Lantus Continue NovoLog sliding scale insulin Continue NPH daily Patient currently on dexamethasone so sugars are expected to be slightly higher Anticipate discharge tomorrow -we will discontinue dexamethasone at that time Most recent hemoglobin A1c is 9 Metformin held while inpatient * Restart on discharge * (6) Vitamin D deficiency: Continue supplementation (7) Vitamin B12 deficiency: Continue supplementation (8) Dyslipidemia: Continue atorvastatin (9) Diabetic peripheral neuropathy: Continue Lyrica Follow outpatient Continue to manage diabetes (10) Epilepsy: No witnessed seizures or seizure-like activity while in inpatient Continue Keppra, Dilantin, Lyrica (11) Essential tremor: Continue beta-gigi Not present at the time of my examination (12) Loss of memory: Supportive care Continue to monitor (13) DVT prophylaxis: Enoxaparin twice daily * Discontinue on discharge (14) Hypertension: Continue losartan, metoprolol succinate, and diltiazem Outpatient management Admission and Anticipated Discharge Date Admission Date: March 06, 2020 Subjective Attending: Dr. Morris Patient seen and examined in room 319. She is in the bedside chair. She is comfortable. She has no acute complaints. She denies shortness of breath. She is still on supplemental oxygen but saturating well. She denies any fever or chills. No nausea or vomiting. Patient lives at [facility] and is expecting discharge there tomorrow. Review of Systems Review of Systems: All systems reviewed & are unremarkable except as noted in Subjective Physical Exam Physical Exam: GENERAL : No acute distress EYES: No icterus, gaze conjugate NOSE: No evidence of epistaxis MOUTH: No lesions or candidiasis NECK: Supple LUNGS: CTA B/L, no wheezes, rales or rhonchi HEART: Regular, rate controlled ABDOMEN: Soft, NT, ND, BS Present EXTREMITIES: No LE edema, pedal pulses intact NEURO: A&OX3 Results & Data Results & Data ([facility]) Vital Signs (Past 12 Hours) Vital Signs Temp Pulse Resp BP Pulse Ox 03/13/20 14:47 55 L 16 165/85 H 94 03/13/20 13:59 93 03/13/20 07:50 36.4 C L 46 L 18 151/82 H 95 Laboratory Results 03/07/20 05:28 03/11/20 06:15 Diagnostic Findings No new diagnostic imaging PG Care Time/CCT Total # of Minutes Spent Total Time Spent with Patient: Total time spent is greater than 50% in coordination of care (as documented) at patient's floor/unit and/or counseling patient: 30 minutes Coding Level of Care Code 76419 Subseq Hosp Care Lvl 2 Diagnoses COVID-19 U07.1 Hypoxic R09.02 HANNAH (acute kidney injury) N17.9 Hyponatremia E87.1 T2DM (type 2 diabetes mellitus) E11.9 Vitamin D deficiency E55.9 Vitamin B12 deficiency E53.8 Dyslipidemia E78.5 Diabetic peripheral neuropathy E11.42 Epilepsy G40.909 Essential tremor G25.0 Loss of memory R41.3 DVT prophylaxis Z29.9 Hypertension I10 Time Spent (min) 30
[2020-03-13] MEDS: ATORVASTATIN 20 MG TAB PO SCH (21:28)
[2020-03-13] MEDS: INSULIN GLARGINE SOLOSTAR 100 UNITS/ML 3 ML PEN SC SCH (21:29)
[2020-03-13] MEDS: DOCUSATE SODIUM 100 MG CAP PO SCH (21:33)
[2020-03-14] MEDS: PANTOprazole 40 MG TAB PO SCH (08:02)
[2020-03-14] MEDS: CYANOCOBALAMIN 500 MCG TABLET (VITAMIN B-12) PO SCH (08:02)
[2020-03-14] MEDS: DEXAMETHASONE SOD PHOSPHATE 6 MG in SYRINGE 0 ML IV SCH (08:02)
[2020-03-14] MEDS: VENLAFAXINE HCL XR 150 MG CAPXR PO SCH (08:03)
[2020-03-14] MEDS: MAGNESIUM OXIDE 400 MG TAB PO SCH (08:03)
[2020-03-14] MEDS: dilTIAZem HCL 180 MG CAPCR PO SCH (08:03)
[2020-03-14] MEDS: CHOLECALCIFEROL 1,000 UNITS 25 MCG TAB PO SCH (08:03)
[2020-03-14] MEDS: ASPIRIN 81 MG ECTAB PO SCH (08:03)
[2020-03-14] MEDS: METOPROLOL SUCC 50MG EXT REL TAB PO SCH (08:03)
[2020-03-14] MEDS: OXYBUTYNIN CHLORIDE 5 MG TAB PO SCH (08:04)
[2020-03-14] MEDS: levETIRAcetam 500 MG TAB PO SCH (08:04)
[2020-03-14] MEDS: LOSARTAN POTASSIUM 50 MG TAB PO SCH (08:04)
[2020-03-14] MEDS: ENOXAPARIN INJ 40 MG/0.4 ML SYR SQ SCH (08:04)
[2020-03-14] MEDS: PREGABALIN 150 MG CAP PO SCH (08:07)
[2020-03-14] MEDS: POLYETHYLENE (MIRALAX) 17 GM PACK PO SCH (08:07)
[2020-03-14] MEDS: INSULIN ASPART 100 UNITS/ML 3 ML PEN SC SCH ×2 (08:52→12:46)
[2020-03-14] MEDS ORDERED: INSULIN HUMAN NPH SC SCH (09:00)
--- NOTE | 2020-03-14 10:18 | Pharmacy Report ---
Pharmacy Glycemic Short Note 2 - Date of Service March 14, 2020 - Glycemic Short BSG Results (Last 24 hours): 03/13/20 03/13/20 03/13/20 12:20 16:55 20:31 POC Glucose 294 H 241 H 301 H* 03/13/20 03/14/20 20:33 07:56 POC Glucose 297 H 126 H OUTPATIENT ANTIDIABETIC REGIMEN: * Lantus 45 units SC HS * Novolog TIDM (8 units with breakfast, 6 units with lunch, and 10 units with dinner) * Metformin 500 mg PO BIDM * HbA1c: 6.8% (11/15/19), recheck pending for tomorrow ASSESSMENT: 03/14: * Patient has received 161 units of insulin over the past 24hrs * 45 units of NPH for steroid induced hyperglycemia * 30 units of Lantus for basal insulin * 86 units of NovoLog for bolus insulin coverage (CF + CR) * BSGs [phone] mg/dl * AM fasting BSG is in goal range at 126mg/dl - no changes needed to Lantus. AM fasting BSG trending upwards from 96-->98-->126 mg/dl. If BSG >140 mg/dl tomorrow will increase Lantus back towards outpatient dosing. * Post-prandial BSGs elevated above goal range. Will tighten CR slightly 03/13: * Esthela received a total of 119 units of insulin yesterday * 75 units basal + 44 units bolus * BSGs ranged 96 - 169 - controlled * Fasting BSG was 98 mg/dL this AM - below goal * This is a very slight increase from yesterday's fasting BSG * Remains on Dexamethasone 6 mg IV daily (Day #10/01) * Will not adjust basal insulin for today * BSGs trending up throughout the day which may indicate insufficient carb coverage * Tightened carb ratio this AM 03/12: * Patient received total of 128 units of insulin yesterday, of which 80 were basal insulin * Fasting BSG 96 mg/dL - plan to scale back slightly on evening Lantus as fasting BSG trending downward * Continue same CF/CR for now. Had tightened CR yesterday due to spike in BSG at lunch time PLAN FOR INPATIENT GLYCEMIC CONTROL: * Hold outpatient oral diabetes medications * Basal insulin - increase NPH, no change to Lantus * Lantus 30 units HS * NPH 50 units QAM with Dexamethasone IV * Bolus insulin - tightened CR * NovoLog per scale ACHS or Q6hrs while NPO * Goal Range: Low 110 mg/dL - High 140 mg/dL * Correction Factor: 15 mg/dL/unit * Nutritional / Prandial insulin per carb ratio of 1 unit per 2.5 grams CHO consumed PLAN FOR DISCHARGE: * HbA1c = 9% * Goal HbA1c is less than 8%. * extension educator spoke to patient. She has been compliant with her meds and insulin per report. A1c at goal back in October 2019 (6.8%). * Patient does report having difficulty pressing the injector on the insulin pens sometimes d/t neuropathy. * Since patient resides at [facility], recommend caregiver helps to make sure she is receiving all the insulin doses currently prescribed before making any adjustment to home doses of Lantus and Novolog. Close follow up with outpatient diabetes provider for dose adjustments.
--- NOTE | 2020-03-14 15:03 | Discharge Summary ---
Date of Service March 14, 2020 Admission HPI Per Admitting Provider This patient is a 74-year-old female with a history of seizure disorder, cerebral aneurysm status post craniotomy and clipping, DM 2, HTN, hyperlipidemia, peripheral neuropathy, morbid obesity, essential tremor, vitamin B12 and vitamin D deficiencies, and mild cognitive impairment who presents from home with worsening shortness of breath and generalized weakness and fatigue with fevers for the last 6 days. She lives alone but has caretakers for the majority of the daytime hours and 2 of her caretakers recently have turned Covid positive. She is also had decreased p.o. intake and did actually stop taking all of her medications for a few days as per her daughter, but restarted her medications 2 days ago. The patient denies any vomiting but has had some nausea and poor appetite. Denies diarrhea or constipation. Denies abdominal pains. Did have a headache but this is now resolved. In the ER, she was noted to be hypoxic at 85% on room air and was placed on oxygen. On laboratory work-up, she had lymphopenia, mildly elevated D-dimer, was mildly hyponatremic with a sodium of 132, and her BUN and creatinine were elevated at 26 and 1.96, respectively. Her troponin was negative and LFTs were normal. Her proBNP was normal at 163. Chest x-ray showed bilateral basilar opacities with subtle interstitial thickening A Doppler of the right lower extremity performed for some mild swelling was negative for DVT. Her D-dimer is mildly elevated at 520. Her Covid-19 test was positive, and she was negative for influenza and RSV. She was afebrile and blood pressures were stable. She was given IV fluids and IV Decadron in the ER. She will be admitted for Covid-19 pneumonia with acute respiratory failure with hypoxia and acute kidney injury Admission Exam Per Admitting Provider Constitutional: WD/WN, vitals as above + morbidly obese; no acute distress Eyes: PERRL, conjunctivae normal, anicteric sclerae ENMT: Ears: + hearing impairment Mouth: + oral mucosal abnormality (dry) Neck: trachea midline, no thyromegaly Respiratory: normal respiratory effort Auscultation: + crackles (At lower and middle lung lomas bilaterally); no wheezes Cardiovascular: Rate/Rhythm: regular rate and regular rhythm Heart Sounds: no murmur Extremities: + edema (Chronic 1+ nonpitting edema of the legs right greater than left) Chest (Breasts): Chest: normal inspection of chest Gastrointestinal (Abdomen): normal bowel sounds, soft, nontender, no hepatosplenomegaly Musculoskeletal: Extremities: extremities normal to inspection; no cyanosis and no clubbing Skin: no rashes, warm and dry Neurologic: moves all extremities and awake; no focal motor deficits Psychiatric: A+Ox3, euthymic affect Lymphatic: no lymphedema Principal Diagnosis COVID-19 pneumonia Discharge Exam GENERAL : No acute distress EYES: No icterus, gaze conjugate. Pupils equal round and reactive to light NOSE: No evidence of epistaxis MOUTH: No lesions or candidiasis. Mucosa moist NECK: Supple LUNGS: CTA B/L, no wheezes, rales or rhonchi HEART: Regular, rate controlled. No ectopy or rales appreciated ABDOMEN: Soft, NT, ND, BS Present EXTREMITIES: Trace bilateral LE edema, pedal pulses intact and equal bilaterally NEURO: A&OX3. Cranial nerves II through XII appear to be grossly intact without focal deficit Discharge Data Allergies Allergy/AdvReac Type Severity Reaction Status Date / Time fentanyl Allergy Intermediate HIGH BLOOD Verified 02/24/20 18:55 PRESSURE, SKIN FLUSHED Cephalosporins Allergy Mild RASH Verified 02/24/20 18:55 Penicillins Allergy Mild RASH Verified 02/24/20 18:55 Sulfa (Sulfonamide Allergy Mild ? Verified 02/24/20 18:55 Antibiotics) bee venom protein (honey bee) Allergy Unknown . Verified 02/24/20 18:55 cephalexin Allergy Unknown Rash Verified 02/24/20 18:55 Iodinated Contrast Media Allergy Unknown PASS OUT, Verified 02/24/20 18:55 VOMITING ketorolac Allergy Unknown Unknown Verified 02/24/20 18:55 meperidine Allergy Unknown . Verified 02/24/20 18:55 aspartame Allergy Verified 03/11/20 17:55 stevioside [From Stevia] Allergy Verified 03/11/20 17:56 sucralose Allergy Verified 03/11/20 17:55 codeine AdvReac Mild ALTERED Verified 02/24/20 18:55 MENTAL STATUS morphine AdvReac Unknown Nausea Verified 12/06/19 11:16 Consultations 03/06/20 15:22 ED Decision to Admit Stat 03/06/20 20:03 Consult Case Management - Discharge Planning Routine Ordered Studies 03/06/20 15:22 US venous doppler LE RT Stat US venous doppler LE RT CLINICAL HISTORY: Right leg swelling. Covid positive patient. COMPARISON STUDY: December 2015 FINDINGS: Real-time and color flow Doppler imaging were performed. Flow was seen within the femoral, popliteal and calf veins with no intraluminal thrombus demonstrated. The saphenous vein is patent. The examination was difficult from a technical standpoint. Visualization of the calf veins was limited. IMPRESSION: No evidence of right lower extremity DVT. ACT 112: Negative or not required by law. Electronically signed by: Britton Butler M.D. 03/06/2020 6:43 PM XR chest 1V portable CLINICAL HISTORY: Cough and shortness of breath COMPARISON STUDY: 02/24/2020 FINDINGS: The heart is enlarged. There is mild interstitial thickening. Subtle airspace opacities are suspected the left lung base and right infrahilar region. There is a large retrocardiac opacity consistent with a hiatal hernia.[ IMPRESSION: 1. Cardiomegaly 2. Large hiatal hernia 3. Subtle interstitial thickening with suspected subtle basilar airspace op acities. Diagnostic considerations include a multifocal infectious/inflammatory processes versus mild pulmonary vascular congestion with basilar atelectasis/edema. Clinical and radiographic follow-up is recommended. Electronically signed by: Britton Butler M.D. 03/06/2020 2:55 PM Hospital Course (1) COVID-19: Onset of symptoms 02/29/2020 Developed symptoms after contact with caregivers Multifocal pneumonia on admission No indication of bacterial involvement. No antibiotics. Continues to require supplemental O2. Continue to titrate as tolerated Currently day #9 of dexamethasone. Discontinue on discharge No convalescent plasma per discussion with family and patient Patient is now successfully been titrated off of supplemental O2 A two-step test was completed today and patient does not require supplemental oxygen at rest or with ambulation/exertion (2) Hypoxic: Patient now on room air Patient denies previous home oxygen use No shortness of breath No indication for outpatient supplemental oxygen as listed above (3) HANNAH (acute kidney injury): Resolved. Creatinine 0.54 (4) Hyponatremia: Resolved. Sodium 138 mmol/L (5) T2DM (type 2 diabetes mellitus): Discharge on home regimen of insulin Dexamethasone discontinued Most recent hemoglobin A1c is 9.0% Metformin held while inpatient * Restart on discharge (6) Vitamin D deficiency: Continue supplementation (7) Vitamin B12 deficiency: Continue supplementation (8) Dyslipidemia: Continue atorvastatin (9) Diabetic peripheral neuropathy: Continue Lyrica Follow outpatient (10) Epilepsy: No witnessed seizures or seizure-like activity while in inpatient Continue Keppra, Dilantin, Lyrica (11) Essential tremor: Continue beta-gigi (12) Loss of memory: Supportive care Continue to monitor (13) DVT prophylaxis: Enoxaparin twice daily * Discontinue on discharge (14) Hypertension: Continue losartan, metoprolol succinate, and diltiazem Outpatient management Total Time Total Time Spent Total Time Spent (In Minutes): 35 minutes Total Time Includes: Examination of the Patient, Discharge Planning, Medication Reconciliation and Communication With Other Providers Discharge Plan Discharge Items Patient Disposition: Home - Home Health Services Reason For Visit: HYPOXIA, COVID, HANNAH Discharge Diagnosis: COVID-19 pneumonia Acute kidney injury (HANNAH) Hyponatremia Activity: Resume your previous activity Lifting: Gradually increase as tolerated Bathing: No limitations Exercise/Sports: Gradually increase as tolerated Weightbearing: Full weightbearing Non-emergency contact: Primary Care Provider Call non-emergency contact if: you have any medication questions, your symptoms worsen and you have a fever Follow-up/Referrals: Margarito Al [Primary Care Provider] - 03/21/20 5:00 pm Diet: Carb Consistent or DM2 and Heart Healthy Diet Texture: Easy to Chew Addtl Attending Provider Instructions: You were admitted to the hospital on 03/06/2020 and found to have multifocal pneumonia by chest x-ray. Your COVID-19 test on the day of admission was positive. You are not started on antiviral medications since your onset of symptoms was 02/29/2020. Because of your shortness of breath and need for oxygen, however, you were started on steroids (dexamethasone). He did not need to take this as an outpatient since you no longer require supplemental oxygen. You should continue isolation per CDC guidelines once you are discharged home. If you should develop further shortness of breath, please contact your family do ctor. You should continue all of your regular home medications on discharge and keep all appointments with your family doctor or other specialist. Pending Studies at Discharge: No Stand-Alone Forms: [facility] Medications and DC Order Prescriptions: Continued pregabalin 150 mg capsule 150 mg PO BID 30 Days Qty: 60 RF: 2 atorvastatin 20 mg tablet 20 mg PO HS Qty: 30 RF: 0 cetirizine 10 mg tablet 10 mg PO DAILY PRN (Reason: Allergy Symptoms) RF: 0 cyanocobalamin (vitamin B-12) 1,000 mcg capsule 1,000 mcg PO DAILY Qty: 30 RF: 0 diltiazem HCl 180 mg capsule,extended release 24hr 180 mg PO QAM RF: 0 docusate sodium 100 mg capsule 200 mg PO HS RF: 0 hydrochlorothiazide 25 mg tablet 25 mg PO QAM RF: 0 losartan 50 mg tablet 50 mg PO QAM RF: 0 magnesium oxide 400 mg (241.3 mg magnesium) tablet 400 mg PO QAM RF: 0 venlafaxine 150 mg capsule,extended release 24hr 150 mg PO QAM RF: 0 pantoprazole 40 mg tablet,delayed release (DR/EC) 40 mg PO QAM RF: 0 nitroglycerin 0.4 mg tablet, sublingual 0.4 mg SL DIRECTED PRN (Reason: Chest Pain) RF: 0 metoprolol succinate 50 mg tablet extended release 24 hr 50 mg PO QAM RF: 0 metformin 500 mg tablet 500 mg PO BID Qty: 60 RF: 0 polyethylene glycol 3350 [Miralax] 17 gram Powder In Packet 17 g PO QAM RF: 0 acetaminophen [Tylenol Extra Strength] 500 mg Tablet 500 mg PO Q6H PRN (Reason: Pain) RF: 0 clotrimazole [Lotrimin AF (clotrimazole)] 1 % Cream 1 applic TOPICAL DIRECTED RF: 0 insulin aspart U-100 [Novolog Flexpen U-100 Insulin] 100 unit/mL (3 mL) insulin pen See Rx Instructions .ROUTE .COMPLEX RF: 0 Lantus U-100 Insulin 100 unit/mL solution 45 unit SUBCUT HS RF: 0 aspirin [Aspirin Low Dose] 81 mg Tablet,Delayed Release (Dr/Ec) 81 mg PO QAM RF: 0 cholecalciferol (vitamin D3) [Vitamin D3] 50 mcg (2,000 unit) Capsule 2,000 unit PO QAM RF: 0 oxybutynin chloride 5 mg tablet 5 mg PO BID RF: 0 levetiracetam 500 mg tablet 500 mg PO BID RF: 0 Discharge Orders: Discharge Order (Routine); Ordered 03/14/20 Ordered By: Huan Pierce/Other Patient Handouts: 2019-nCoV, Managing Type 2 Diabetes, Diabetes: Sick-Day Plan, Disinfecting Your Home of COVID-19 Admission Data Admit Date/Time: 03/06/20 17:51 Attending Provider: Luis Morris Admit Provider: Betty Estrella Primary Care Provider: Margarito Al Other Providers: Betty Estrella Other Interventions: Discharge Summary Assessment (RN) Last Done: 03/14/20 13:22 Supervising Physician Co-Signing Physician Notes Patient seen and examined on the day of discharge. I agree with the discharge summary by Huan BHATIA. I have reviewed the chart including labs, imaging and plans for discharge. patient feeling so much better, titrated down to room air, breathing well, eating well, no fever she is getting stronger, ambulated 120 feet with therapy her daughter will be staying with her as well as other family members, close observation at home for the next week to help her recover - COVID 19 pneumonia with hypoxia responded well to treatment completed course of dexamethasone now on room air, no fever, vitals stable continue to stay well nourished, well hydrated Coding Level of Care Code D/C Day Management >30 mins Diagnoses COVID-19 U07.1 Hypoxic R09.02 HANNAH (acute kidney injury) N17.9 Hyponatremia E87.1 T2DM (type 2 diabetes mellitus) E11.9 Vitamin D deficiency E55.9 Vitamin B12 deficiency E53.8 Dyslipidemia E78.5 Diabetic peripheral neuropathy E11.42 Epilepsy G40.909 Essential tremor G25.0 Loss of memory R41.3 DVT prophylaxis Z29.9 Hypertension I10 Time Spent (min) 35
== END 2020-03-14 15:10 | disposition home health service (06) | DRG 177 ==
LOC: ED 14:08 → 2N 17:51 → SUATTDRO 17:51 → 2N 19:55 → 3E 03-12 10:14

== ENCOUNTER 2020-07-21 11:12 | Inpatient (IN) ==
[2020-07-21 11:28] LABS: Basophils # (auto) 0.04 K/uL (0-0.2); Basophils % (auto) 0.5 %; Eosinophils # (auto) 0.07 K/uL (0-0.5); Eosinophils % (auto) 0.8 %; Hematocrit (blood only) 41.5 % (37-47); Hemoglobin 13.9 g/dL (12.0-16.0); Immature Granulocytes # (auto) 0.02 K/uL (0.00-0.02); Immature Granulocytes % (auto) 0.2 %; Lymphocytes # (auto) 1.73 K/uL (1.2-3.4); Lymphocytes % (auto) 20.7 %; Mean Corpuscular Hemoglobin 27.3 pg (25-34); Mean Corpuscular Hgb Conc 33.5 g/dL (32-36); Mean Corpuscular Volume 81.4 fL (80-100); Mean Platelet Volume 10.1 fL (7.4-10.4); Monocytes # (auto) 0.68 K/uL (0.11-0.59); Monocytes % (auto) 8.1 %; Neutrophils # (auto) 5.83 K/uL (1.4-6.5); Neutrophils % (auto) 69.7 %; Platelet Count 327 K/uL (130-400); RDW Coefficient of Variation 15.3 % (11.5-14.5); RDW Standard Deviation 45.4 fL (36.4-46.3); White Blood Count 8.37 K/uL (4.8-10.8)
[2020-07-21] MEDS ORDERED: SODIUM CHLORIDE 0.9% 500 ML IV SCH (11:30)
[2020-07-21 11:51] LABS: Alanine Aminotransferase 15 U/L (12-78); Albumin Level 3.4 gm/dl (3.4-5.0); Aspartate Aminotransferase 21 U/L (15-37); BUN Creatinine Ratio 10.1 (10-20); Blood Urea Nitrogen 8 mg/dl (7-18); Calcium 9.8 mg/dl (8.5-10.1); Carbon Dioxide 26 mmol/L (21-32); Chloride 100 mmol/L (98-107); Creatinine Clr Calc Pharmacy 76.8 ml/min; Est GFR (African American) 90.2 ml/min; Est GFR (Non-African American) 77.8 ml/min; Glucose 257 mg/dl (70-99); Magnesium 1.6 mg/dl (1.8-2.4); Potassium 3.8 mmol/L (3.5-5.1); Sodium 135 mmol/L (136-145)
--- NOTE | 2020-07-21 11:52 | Emergency Department Note ---
History of Present Illness General Chief complaint: Weakness Stated complaint: WEAKNESS, Time Seen by Provider: 07/21/20 11:18 Source: patient Mode of arrival: ambulatory Limitations: no limitations History of Present Illness Provider complaint: Generalized weakness Maximum Pain Intensity: 4 This is a 74-year-old female who presents to the ED with a chief complaint of generalized weakness. The patient states that she lives alone. She states that she has a history of neuropathy in her legs and feet. She reports decreased appetite and decreased p.o. intake over the past couple of days. She states that she has not been feeling well. She has a mild headache. Most of her symptoms started yesterday. She was having difficulty getting around today because of her weakness. She states that she did take her morning medications. She reports a somewhat chronic cough and a little shortness of breath. She states that today she felt dizzy getting up. Her blood sugars have been running higher than usual. She does report that she covered her elevated blood sugars with insulin. Home Medications Medication Instructions Recorded Confirmed Type atorvastatin 20 mg tablet 20 mg PO HS #30 tab 02/09/19 07/21/20 History cetirizine 10 mg tablet 10 mg PO DAILY PRN tab 02/09/19 07/21/20 History cyanocobalamin (vitamin B-12) 1,000 mcg PO DAILY #30 cap 02/09/19 07/21/20 History 1,000 mcg capsule diltiazem HCl 180 mg 180 mg PO QAM cap 02/09/19 07/21/20 History capsule,extended release 24 hr docusate sodium 100 mg capsule 200 mg PO HS cap 02/09/19 07/21/20 History hydrochlorothiazide 25 mg tablet 25 mg PO QAM tab 02/09/19 07/21/20 History losartan 50 mg tablet 50 mg PO QAM tab 02/09/19 07/21/20 History magnesium oxide 400 mg (241.3 mg 400 mg PO QAM tab 02/09/19 07/21/20 History magnesium) tablet metoprolol succinate 50 mg 50 mg PO QAM tab 02/09/19 07/21/20 History tablet,extended release 24 hr nitroglycerin 0.4 mg sublingual 0.4 mg SL DIRECTED PRN tab 02/09/19 07/21/20 History tablet pantoprazole 40 mg tablet,delayed 40 mg PO QAM tab 02/09/19 07/21/20 History release venlafaxine 150 mg 150 mg PO QAM cap 02/09/19 07/21/20 History capsule,extended release 24 hr acetaminophen [Tylenol Extra 500 mg PO Q6H PRN 03/01/19 07/21/20 History Strength] clotrimazole [Lotrimin AF 1 applic TOPICAL DIRECTED 03/01/19 07/21/20 History (clotrimazole)] insulin aspart U-100 [Novolog See Rx Instructions .ROUTE .COMPLEX 03/01/19 History Flexpen U-100 Insulin] polyethylene glycol 3350 [Miralax] 17 g PO QAM 03/01/19 07/21/20 History aspirin [Aspirin Low Dose] 81 mg PO QAM 11/14/19 05/09/20 History cholecalciferol (vitamin D3) 2,000 unit PO QAM 11/14/19 07/21/20 History [Vitamin D3] oxybutynin chloride 5 mg PO BID 11/14/19 07/21/20 History pregabalin 150 mg capsule 150 mg PO BID 30 Days #60 cap 12/04/19 07/21/20 Rx insulin glargine 100 unit/mL 45 unit SUBCUT HS ml 12/06/19 07/21/20 History subcutaneous solution levetiracetam 500 mg PO BID 02/24/20 07/21/20 History metformin 500 mg tablet 500 mg PO .COMPLEX #120 tab 05/09/20 07/21/20 Rx Allergies Allergy/AdvReac Type Severity Reaction Status Date / Time fentanyl Allergy Intermediate HIGH BLOOD Verified 07/21/20 12:32 PRESSURE, SKIN FLUSHED Cephalosporins Allergy Mild RASH Verified 07/21/20 12:32 Penicillins Allergy Mild RASH Verified 07/21/20 12:32 Sulfa (Sulfonamide Allergy Mild ? Verified 07/21/20 12:32 Antibiotics) bee venom protein (honey bee) Allergy Unknown . Verified 07/21/20 12:32 cephalexin Allergy Unknown Rash Verified 07/21/20 12:32 Iodinated Contrast Media Allergy Unknown PASS OUT, Verified 07/21/20 12:32 VOMITING ketorolac Allergy Unknown Unknown Verified 07/21/20 12:32 meperidine Allergy Unknown . Verified 07/21/20 12:32 aspartame Allergy Verified 07/21/20 12:32 stevioside [From Stevia] Allergy Verified 07/21/20 12:32 sucralose Allergy Verified 07/21/20 12:32 codeine AdvReac Mild ALTERED Verified 07/21/20 12:32 MENTAL STATUS morphine AdvReac Unknown Nausea Verified 07/21/20 12:32 Past Med/Surg History Medical History HANNAH (acute kidney injury) Anesthesia in both legs Diabetic peripheral neuropathy Dyslipidemia Epilepsy Essential tremor Hypertension Hypoxic Loss of memory Obesity Peripheral neuropathy Sensory ataxia T2DM (type 2 diabetes mellitus) Tremor Vitamin B12 deficiency Vitamin D deficiency Surgical History Hx of cerebral aneurysm repair S/P adenoidectomy S/P cholecystectomy S/P hysterectomy S/P tonsillectomy S/P umbilical hernia repair, follow-up exam Status post tubal ligation Family History Mother Cancer Father Coronary heart disease Social History Smoking Status: Former smoker Hx Alcohol Use: Yes Alcohol type: wine Hx Substance Use: No Preferred Language: [place] Communication Ability: Effective Blood Coordinator Required: No Beliefs That Will Affect Care: None Current Living Situation: Alone Feels Safe at Home: Yes Assistive Devices: Oxygen - Continuous and Walker Review of Systems A total of 10 systems reviewed and were otherwise negative Physical Exam Vital Signs Vital Signs - 24 hr 07/21/20 11:17 07/21/20 11:26 07/21/20 11:30 Temperature 36.8 C Temperature Source Oral Pulse Rate 108 H 104 H 117 H Pulse Rate [Apical] 104 H Pulse Rate from SpO2 Sensor 109 H 118 H Pulse Rhythm Regular Respiratory Rate 23 23 26 H Respiratory Effort / Characteristics Non-Labored Respiratory Depth Normal Blood Pressure 193/100 H 193/100 H Blood Pressure [Left Arm] 193/100 H Blood Pressure Mean 131 131 Blood Pressure Mean [Left Arm] 131 Blood Pressure Position Lying Blood Pressure Position [Left Arm] Lying Pulse Oximetry 94 94 93 Oxygen Delivery Method Room Air Sepsis Recent Fever Within 48 Hours No Sepsis New/Unexplained Change in Mental Status N/A Sepsis Action Taken by Nursing No Action Required 07/21/20 12:00 07/21/20 12:31 Temperature Temperature Source Pulse Rate 93 H 94 H Pulse Rate [Apical] Pulse Rate from SpO2 Sensor 92 H 94 H Pulse Rhythm Respiratory Rate 18 26 H Respiratory Effort / Characteristics Respiratory Depth Blood Pressure 171/95 H 119/75 Blood Pressure [Left Arm] Blood Pressure Mean 120 89 Blood Pressure Mean [Left Arm] Blood Pressure Position Blood Pressure Position [Left Arm] Pulse Oximetry 92 92 Oxygen Delivery Method Sepsis Recent Fever Within 48 Hours Sepsis New/Unexplained Change in Mental Status Sepsis Action Taken by Nursing CONSTITUTIONAL/VITAL SIGNS: Reviewed / noted above. GENERAL: Non-toxic in appearance. Generalized weakness. INTEGUMENTARY: Warm, dry, and [place]. HEAD: Normocephalic. EYES: without scleral icterus or trauma. ENT/OROPHARYNX: clear and dry. LYMPHADENOPATHY/NECK: Is supple without lymphadenopathy or meningismus. RESPIRATORY: Lungs clear and equal. CARDIOVASCULAR: Regular rate and rhythm. GI/ABDOMEN: Soft and nontender. No organomegaly or pulsatile mass. No rebound or guarding. Normal bowel sounds. EXTREMITIES: Warm and well perfused. BACK: No CVA tenderness. NEUROLOGICAL: Intact without focal deficits. PSYCHIATRIC: normal affect. MUSCULOSKELETAL: Normally developed with good muscle tone. TRIAGE NURSING DOCUMENTATION REVIEWED. Course Administered Medications Discontinued Medications Sodium Chloride (Nss) 500 mls @ 999 mls/hr IV .Q31M EVELIO Stop: 07/21/20 12:00 Last Infusion: 07/21/20 12:21 Dose: 0 mls/hr Documented by: [id number] Admin: 07/21/20 11:54 Dose: 999 mls/hr Documented by: [id number] Medical Decision Making Differential Diagnosis Differential includes acute coronary syndrome, myocardial infarction, CVA, TIA, anemia, infection, pneumonia, UTI, pyelonephritis, poor nutrition, dehydration, electrolyte disturbance,hypoglycemia. Medical Records Attestation: I reviewed the patient's medical records. Home Medications Current Medication List: was personally reviewed by me Laboratory Data Attestation: I reviewed the patient's lab results. Result diagrams: 07/21/20 11:00 07/21/20 11:00 Lab Results 07/21/20 07/21/20 07/21/20 Range/Units 11:00 11:00 11:00 WBC 8.37 (4.8-10.8) K/uL RBC 5.10 (4.2-5.4) M/uL Hgb 13.9 (12.0-16.0) g/dL Hct 41.5 (37-47) % MCV 81.4 (80-100) fL MCH 27.3 (25-34) pg MCHC 33.5 (32-36) g/dL RDW Std Deviation 45.4 (36.4-46.3) fL RDW Coeff of Nic 15.3 H (11.5-14.5) % Plt Count 327 (130-400) K/uL MPV 10.1 (7.4-10.4) fL Immature Gran % (Auto) 0.2 % Neut % (Auto) 69.7 % Lymph % (Auto) 20.7 % Davis % (Auto) 8.1 % Eos % (Auto) 0.8 % Baso % (Auto) 0.5 % Neut # (Auto) 5.83 (1.4-6.5) K/uL Lymph # (Auto) 1.73 (1.2-3.4) K/uL Davis # (Auto) 0.68 H (0.11-0.59) K/uL Eos # (Auto) 0.07 (0-0.5) K/uL Baso # (Auto) 0.04 (0-0.2) K/uL Immature Gran # (Auto) 0.02 (0.00-0.02) K/uL Sodium 135 L (136-145) mmol/L Potassium 3.8 (3.5-5.1) mmol/L Chloride 100 (98-107) mmol/L Carbon Dioxide 26 (21-32) mmol/L Anion Gap 10.0 (3-11) BUN 8 (7-18) mg/dl Creatinine 0.76 (0.6-1.2) mg/dl Est Cr Clr Drug Dosing 76.8 ml/min Est GFR ( Amer) 90.2 ml/min Est GFR (Non-Af Amer) 77.8 ml/min BUN/Creatinine Ratio 10.1 (10-20) Glucose 257 H (70-99) mg/dl POC Glucose (70-99) mg/dl Calcium 9.8 (8.5-10.1) mg/dl Magnesium 1.6 L (1.8-2.4) mg/dl Total Bilirubin 0.4 (0.2-1) mg/dl AST 21 (15-37) U/L ALT 15 (12-78) U/L Alkaline Phosphatase 109 (45-117) U/L Total Creatine Kinase 53 (26-192) U/L Troponin I < 0.015 (0-0.045) ng/ml Total Protein 7.7 (6.4-8.2) gm/dl Albumin 3.4 (3.4-5.0) gm/dl Globulin 4.3 H (2.5-4.0) gm/dl Albumin/Globulin Ratio 0.8 L (0.9-2) TSH 2.290 (0.300-4.500) uIu/ml Specimen Hemolysis Urine Color Urine Appearance (Clear) Urine pH (4.5-7.5) Ur Specific Kodak (1.000-1.030) Urine Protein (Negative) Urine Glucose (UA) (Negative) Urine Ketones (Negative) Urine Blood (Negative) Urine Nitrite (Negative) Urine Bilirubin (Negative) Urine Urobilinogen (Negative) Ur Leukocyte Esterase (Negative) Urine WBC (Auto) (0-5) /hpf Urine RBC (Auto) (0-4) /hpf U Hyaline Cast (Auto) (0-5) /lpf U Epithel Cells (Auto) (0-5) /lpf Urine Bacteria (Auto) (Negative) Ur Renal Epithelial Cell Phenytoin 1.2 L (10-20) mcg/ml 07/21/20 07/21/20 Range/Units 11:23 11:48 WBC (4.8-10.8) K/uL RBC (4.2-5.4) M/uL Hgb (12.0-16.0) g/dL Hct (37-47) % MCV (80-100) fL MCH (25-34) pg MCHC (32-36) g/dL RDW Std Deviation (36.4-46.3) fL RDW Coeff of Nic (11.5-14.5) % Plt Count (130-400) K/uL MPV (7.4-10.4) fL Immature Gran % (Auto) % Neut % (Auto) % Lymph % (Auto) % Davis % (Auto) % Eos % (Auto) % Baso % (Auto) % Neut # (Auto) (1.4-6.5) K/uL Lymph # (Auto) (1.2-3.4) K/uL Davis # (Auto) (0.11-0.59) K/uL Eos # (Auto) (0-0.5) K/uL Baso # (Auto) (0-0.2) K/uL Immature Gran # (Auto) (0.00-0.02) K/uL Sodium (136-145) mmol/L Potassium (3.5-5.1) mmol/L Chloride (98-107) mmol/L Carbon Dioxide (21-32) mmol/L Anion Gap (3-11) BUN (7-18) mg/dl Creatinine (0.6-1.2) mg/dl Est Cr Clr Drug Dosing ml/min Est GFR ( Amer) ml/min Est GFR (Non-Af Amer) ml/min BUN/Creatinine Ratio (10-20) Glucose (70-99) mg/dl POC Glucose 258 H (70-99) mg/dl Calcium (8.5-10.1) mg/dl Magnesium (1.8-2.4) mg/dl Total Bilirubin (0.2-1) mg/dl AST (15-37) U/L ALT (12-78) U/L Alkaline Phosphatase (45-117) U/L Total Creatine Kinase (26-192) U/L Troponin I (0-0.045) ng/ml Total Protein (6.4-8.2) gm/dl Albumin (3.4-5.0) gm/dl Globulin (2.5-4.0) gm/dl Albumin/Globulin Ratio (0.9-2) TSH (0.300-4.500) uIu/ml Specimen Hemolysis Urine Color Yellow Urine Appearance Clear (Clear) Urine pH 7.5 (4.5-7.5) Ur Specific Kodak 1.013 (1.000-1.030) Urine Protein 3+ H (Negative) Urine Glucose (UA) 2+ H (Negative) Urine Ketones 1+ H (Negative) Urine Blood 1+ H (Negative) Urine Nitrite Positive A (Negative) Urine Bilirubin Negative (Negative) Urine Urobilinogen Negative (Negative) Ur Leukocyte Esterase Negative (Negative) Urine WBC (Auto) 5-10 H (0-5) /hpf Urine RBC (Auto) 0-4 (0-4) /hpf U Hyaline Cast (Auto) 1-5 (0-5) /lpf U Epithel Cells (Auto) 0-5 (0-5) /lpf Urine Bacteria (Auto) 2+ H (Negative) Ur Renal Epithelial Cell Not Reportable Phenytoin (10-20) mcg/ml Imaging Data Radiologist's Impression: Chest X-Ray 07/21/20 11:18 SINGLE VIEW CHEST CLINICAL HISTORY: Generalized weakness. FINDINGS: An AP, portable, upright chest radiograph is compared to study dated 03/06/2020. There is a large hiatal hernia. The heart is enlarged noting atherosclerotic calcification of the thoracic aorta. The pulmonary vasculature is noncongested. Chronic interstitial thickening is similar to previous. There is bibasilar scarring/atelectasis. No airspace consolidation or large pleural effusion is identified. No pneumothorax is seen. The skeletal structures are osteopenic. The bony thorax is grossly intact. IMPRESSION: 1. Cardiomegaly with no acute cardiopulmonary abnormality. 2. Large hiatal hernia. ACT 112: Negative or not required by law. Electronically signed by: Huan Kaur M.D. 07/21/2020 11:53 AM ECG Data Attestation: I personally reviewed and interpreted this ECG as follows: Indication: + weakness Rate (beats per minute): 98 Rhythm: + normal sinus ECG Intervals/blocks: + Left bundle branch block ECG ST segments: no ST elevation ECG Findings: no PVCs MDM Narrative Patient presents with generalized weakness as detailed above. Vital signs reveal hypertension and mild tachycardia. She did take her blood pressure medication today. Mucous membranes are slightly dry. She has generalized weakness but no focal deficits on exam. No other focal findings. EKG shows a sinus rhythm with a bundle branch block. Rate of 98. Left bundle branch block is present chronically. CBC is unremarkable. Complete metabolic panel was unremarkable. Glucose is 257. Troponin is negative. Urinalysis suggest UTI. Dilantin level is low. The chest x-ray did not show acute process. The patient was given IV Levaquin. Because of her weakness and the fact that she lives alone, she will be seen by the hospitalist for further inpatient evaluation and care. Impression & Plan Acute UTI, Weakness Discharge Plan Visit Data Chief Complaint: Weakness Stated Complaint: WEAKNESS, ED Provider: Ryan Sarmiento Discharge Problem: Acute UTI, Weakness Patient Disposition: Being Evaluated by Hospitalist Forms Stand Alone Forms: My [facility] Prescriptions Prescriptions: No Action pregabalin 150 mg capsule 150 mg PO BID 30 Days Qty: 60 RF: 2 atorvastatin 20 mg tablet 20 mg PO HS Qty: 30 RF: 0 cetirizine 10 mg tablet 10 mg PO DAILY PRN (Reason: Allergy Symptoms) RF: 0 cyanocobalamin (vitamin B-12) 1,000 mcg capsule 1,000 mcg PO DAILY Qty: 30 RF: 0 diltiazem HCl 180 mg capsule,extended release 24hr 180 mg PO QAM RF: 0 docusate sodium 100 mg capsule 200 mg PO HS RF: 0 hydrochlorothiazide 25 mg tablet 25 mg PO QAM RF: 0 losartan 50 mg tablet 50 mg PO QAM RF: 0 magnesium oxide 400 mg (241.3 mg magnesium) tablet 400 mg PO QAM RF: 0 venlafaxine 150 mg capsule,extended release 24hr 150 mg PO QAM RF: 0 pantoprazole 40 mg tablet,delayed release (DR/EC) 40 mg PO QAM RF: 0 nitroglycerin 0.4 mg tablet, sublingual 0.4 mg SL DIRECTED PRN (Reason: Chest Pain) RF: 0 metoprolol succinate 50 mg tablet extended release 24 hr 50 mg PO QAM RF: 0 metformin 500 mg tablet 500 mg PO .COMPLEX Qty: 120 RF: 5 polyethylene glycol 3350 [Miralax] 17 gram Powder In Packet 17 g PO QAM RF: 0 acetaminophen [Tylenol Extra Strength] 500 mg Tablet 500 mg PO Q6H PRN (Reason: Pain) RF: 0 clotrimazole [Lotrimin AF (clotrimazole)] 1 % Cream 1 applic TOPICAL DIRECTED RF: 0 insulin aspart U-100 [Novolog Flexpen U-100 Insulin] 100 unit/mL (3 mL) insulin pen See Rx Instructions .ROUTE .COMPLEX RF: 0 Lantus U-100 Insulin 100 unit/mL solution 45 unit SUBCUT HS RF: 0 aspirin [Aspirin Low Dose] 81 mg Tablet,Delayed Release (Dr/Ec) 81 mg PO QAM RF: 0 cholecalciferol (vitamin D3) [Vitamin D3] 50 mcg (2,000 unit) Capsule 2,000 unit PO QAM RF: 0 oxybutynin chloride 5 mg tablet 5 mg PO BID RF: 0 levetiracetam 500 mg tablet 500 mg PO BID RF: 0 Referrals Referrals: Margarito Al [Primary Care Provider] -
--- NOTE | 2020-07-21 11:54 | XRay Report ---
SINGLE VIEW CHEST CLINICAL HISTORY: Generalized weakness. FINDINGS: An AP, portable, upright chest radiograph is compared to study dated 03/06/2020. There is a large hiatal hernia. The heart is enlarged noting atherosclerotic calcification of the thoracic aorta . The pulmonary vasculature is noncongested. Chronic interstitial thickening is similar to previous. There is bibasilar scarring/atelectasis. No airspace consolidation or large pleural effusion is ident ified. No pneumothorax is seen. The skeletal structures are osteopenic. The bony thorax is grossly in tact. IMPRESSION: 1. Cardiomegaly with no acute cardiopulmonary abnormality. 2. Large hiatal hernia. ACT 112: Negative or not required by law. Electronically signed by: Huan Kaur M.D. 07/21/2020 11:53 AM
[2020-07-21 12:01] LABS: Albumin Globulin Ratio 0.8 (0.9-2); Alkaline Phosphatase 109 U/L (45-117); Bilirubin,Total 0.4 mg/dl (0.2-1); Creatine Kinase 53 U/L (26-192); Globulin 4.3 gm/dl (2.5-4.0); Total Protein 7.7 gm/dl (6.4-8.2); Troponin I < 0.015 ng/ml (0-0.045)
[2020-07-21 12:10] LABS: Appearance Urine Clear (Clear); Bacteria Urine Automated 2+ (Negative); Bilirubin Urine Negative (Negative); Blood Urine 1+ (Negative); Color Urine Yellow; Glucose Urine UA 2+ (Negative); Ketones Urine 1+ (Negative); Leukocyte Esterase Urine Negative (Negative); Nitrite Urine Positive (Negative); RBC Urine Automated 0-4 /hpf (0-4); Specific Gravity Urine 1.013 (1.000-1.030); Urobilinogen Urine Negative (Negative); pH Urine 7.5 (4.5-7.5)
[2020-07-21 12:33] LABS: Protein Urine 3+ (Negative)
[2020-07-21 12:38] LABS: Epithelial Cell Urine Auto 0-5 /lpf (0-5)
[2020-07-21] MEDS ORDERED: levoFLOXacin/D5W 500 MG/100 ML BAG IV STA (12:47)
[2020-07-21] MEDS ORDERED: ACETAMINOPHEN 500 MG TAB PO STA (12:55)
--- NOTE | 2020-07-21 13:41 | History & Physical Report ---
Date of Service July 21, 2020 Assessment & Plan (1) Pyelonephritis: Suspected left pyelonephritis given left CVA tenderness. Follow up urine and blood cultures Continue Levaquin 750mg IV daily (renal adjusted) (2) Weakness: PT/OT evals (3) Peripheral neuropathy: Continue outpatient venlafaxine and lyrica (4) Sensory ataxia: As above (5) T2DM (type 2 diabetes mellitus): HbA1C 8.7 in April Consult pharmacy for glycemic control with basal bolus insulin (6) Epilepsy: Continue Keppra 500mg PO BID (7) Essential tremor: Noted on exam, patient reports mildly worse than usual (8) Hypertension: Continue her usual outpatient regimen with diltiazem, metoprolol and losartan Will hold HCTZ pending stability in BP overnight (9) DVT prophylaxis: Lovenox 40mg SQ BID (increased dose due to morbid obesity) Admission and Anticipated Discharge Date Admission Date: July 21, 2020 History of Present Illness Chief Complaint: Generalized weakness Primary Care Provider: Margarito Al Esthela Kenny is a 74-year-old female who presents to the ER via ALS due to dizziness, reduced appetite with generalized weakness. She reports symptoms started yesterday and progressively getting worse. Having more trouble getting around because of her profound weakness today. Dizziness occurring when standing up. In the ER UA was grossly positive for infection. She does not endorse any specific UTI symptoms. Given her weakness she was not felt safe to return home therefore referred to medicine for admission and ongoing management of UTI and generalized weakness. Allergies Allergy/AdvReac Type Severity Reaction Status Date / Time fentanyl Allergy Intermediate HIGH BLOOD Verified 07/21/20 12:32 PRESSURE, SKIN FLUSHED Cephalosporins Allergy Mild RASH Verified 07/21/20 12:32 Penicillins Allergy Mild RASH Verified 07/21/20 12:32 Sulfa (Sulfonamide Allergy Mild ? Verified 07/21/20 12:32 Antibiotics) bee venom protein (honey bee) Allergy Unknown . Verified 07/21/20 12:32 cephalexin Allergy Unknown Rash Verified 07/21/20 12:32 Iodinated Contrast Media Allergy Unknown PASS OUT, Verified 07/21/20 12:32 VOMITING ketorolac Allergy Unknown Unknown Verified 07/21/20 12:32 meperidine Allergy Unknown . Verified 07/21/20 12:32 aspartame Allergy Verified 07/21/20 12:32 stevioside [From Stevia] Allergy Verified 07/21/20 12:32 sucralose Allergy Verified 07/21/20 12:32 codeine AdvReac Mild ALTERED Verified 07/21/20 12:32 MENTAL STATUS morphine AdvReac Unknown Nausea Verified 07/21/20 12:32 Home Medications Medication Instructions Recorded Confirmed Type atorvastatin 20 mg tablet 20 mg PO HS #30 tab 02/09/19 07/21/20 History cetirizine 10 mg tablet 10 mg PO DAILY PRN tab 02/09/19 07/21/20 History cyanocobalamin (vitamin B-12) 1,000 mcg PO DAILY #30 cap 02/09/19 07/21/20 History 1,000 mcg capsule diltiazem HCl 180 mg 180 mg PO QAM cap 02/09/19 07/21/20 History capsule,extended release 24 hr docusate sodium 100 mg capsule 200 mg PO HS cap 02/09/19 07/21/20 History hydrochlorothiazide 25 mg tablet 25 mg PO QAM tab 02/09/19 07/21/20 History losartan 50 mg tablet 50 mg PO QAM tab 02/09/19 07/21/20 History magnesium oxide 400 mg (241.3 mg 400 mg PO QAM tab 02/09/19 07/21/20 History magnesium) tablet metoprolol succinate 50 mg 50 mg PO QAM tab 02/09/19 07/21/20 History tablet,extended release 24 hr nitroglycerin 0.4 mg sublingual 0.4 mg SL DIRECTED PRN tab 02/09/19 07/21/20 History tablet pantoprazole 40 mg tablet,delayed 40 mg PO QAM tab 02/09/19 07/21/20 History release venlafaxine 150 mg 150 mg PO QAM cap 02/09/19 07/21/20 History capsule,extended release 24 hr acetaminophen [Tylenol Extra 500 mg PO Q6H PRN 03/01/19 07/21/20 History Strength] clotrimazole [Lotrimin AF 1 applic TOPICAL DIRECTED 03/01/19 07/21/20 History (clotrimazole)] insulin aspart U-100 [Novolog See Rx Instructions .ROUTE .COMPLEX 03/01/19 07/21/20 History Flexpen U-100 Insulin] polyethylene glycol 3350 [Miralax] 17 g PO QAM 03/01/19 07/21/20 History aspirin [Aspirin Low Dose] 81 mg PO QAM 11/14/19 05/09/20 History cholecalciferol (vitamin D3) 2,000 unit PO QAM 11/14/19 07/21/20 History [Vitamin D3] oxybutynin chloride 5 mg PO BID 11/14/19 07/21/20 History pregabalin 150 mg capsule 150 mg PO BID 30 Days #60 cap 12/04/19 07/21/20 Rx insulin glargine 100 unit/mL 45 unit SUBCUT HS ml 12/06/19 07/21/20 History subcutaneous solution levetiracetam 500 mg PO BID 02/24/20 07/21/20 History metformin 500 mg tablet 500 mg PO .COMPLEX #120 tab 05/09/20 07/21/20 Rx Past Med/Surg History Medical History HANNAH (acute kidney injury) Anesthesia in both legs Diabetic peripheral neuropathy Dyslipidemia Epilepsy Essential tremor Hypertension Hypoxic Loss of memory Obesity Peripheral neuropathy Sensory ataxia T2DM (type 2 diabetes mellitus) Tremor Vitamin B12 deficiency Vitamin D deficiency Surgical History Hx of cerebral aneurysm repair S/P adenoidectomy S/P cholecystectomy S/P hysterectomy S/P tonsillectomy S/P umbilical hernia repair, follow-up exam Status post tubal ligation Family History Mother Cancer Father Coronary heart disease Social History Smoking Status: Never smoker Hx Alcohol Use: Yes Alcohol type: wine Hx Substance Use: No Preferred Language: Sammarinese Communication Ability: Effective Senior Account Manager Required: No Beliefs That Will Affect Care: None Current Living Situation: Alone Other Information That Helps Us Care for You: No Feels Safe at Home: Yes Safety Concerns: Feels Safe At This Time Assistive Devices: Walker Review of Systems Review of Systems: All systems reviewed & are unremarkable except as noted in HPI & below Musculoskeletal: Back pain Physical Exam Constitutional: well developed and + morbidly obese; + not well nourished and no acute distress Eyes: + anicteric sclerae; normal pupil size Respiratory: normal respiratory effort, lungs clear to auscultation Cardiovascular: RRR, no murmur, no edema Gastrointestinal (Abdomen): Inspection/Auscultation: abdomen normal to inspection and normal bowel sounds; abdomen not distended Percussion/Palpation: abdomen soft; abdomen nontender, no guarding and abdomen not rigid Musculoskeletal: no cyanosis or clubbing, extremities motor strength 5/5 Neurologic: moves all extremities and awake; no focal motor deficits (no lateralizing) and not confused Speech / Cognition: normal speech Motor/Sensory: + tremor (resting, worse on posturing R > L) and + sensory deficit (stocking distribution numbness equal b/l feet) Psychiatric: A+Ox3, euthymic affect Genitourinary: + CVA tenderness (left) Results & Data Results & Data ([facility]) Vital Signs (Past 12 Hours) Vital Signs Temp Pulse Pulse Resp BP BP Pulse Ox 07/21/20 13:01 105 H 14 159/111 H 94 07/21/20 12:31 94 H 26 H 119/75 92 07/21/20 12:00 93 H 18 171/95 H 92 07/21/20 11:30 117 H 26 H 93 07/21/20 11:26 36.8 C 104 H 104 H 23 193/100 H 193/100 H 94 07/21/20 11:17 108 H 23 193/100 H 94 Diagnostic Findings SINGLE VIEW CHEST IMPRESSION: 1. Cardiomegaly with no acute cardiopulmonary abnormality. 2. Large hiatal hernia. Medications Administered ER Medications Given: NSS 500 ml bolus Acetaminophen 500mg PO Levaquin 500mg IV ECG Indication: altered mental status Rate (beats per minute): 98 Rhythm: normal sinus Findings: + LBBB Comparison ECG Date: from (Mar 062020) Change: the following changes noted (Rate increased) Code Status & VTE Plan Code Status Full VTE Prophylaxis Plan VTE Prophylaxis will be ordered: Yes PG Care Time/CCT Total # of Minutes Spent Total Time Spent with Patient: Total time spent is greater than 50% in coordination of care (as documented) at patient's floor/unit and/or counseling patient: Coding Level of Care Code 37291 OBS Care - Level 2 Diagnoses Pyelonephritis N12 Weakness R53.1 Peripheral neuropathy G62.9 Sensory ataxia R27.8 T2DM (type 2 diabetes mellitus) E11.9 Epilepsy G40.909 Essential tremor G25.0 Hypertension I10 DVT prophylaxis Z29.9
[2020-07-21] MEDS ORDERED: CETIRIZINE HCL 10 MG TABLET PO PRN (15:46)
[2020-07-21] MEDS ORDERED: PHARMACY GLYCEMIC MGMT CONSULT PRN (16:09)
[2020-07-21] MEDS ORDERED: GLUCAGON FOR INJ 1 MG VIAL IM PRN (16:15)
[2020-07-21] MEDS ORDERED: GLUCOSE 10 TABS/TUBE PO PRN (16:15)
[2020-07-21] MEDS ORDERED: GLUCOSE 40% GEL 15 GM TUBE PO PRN (16:15)
[2020-07-21] MEDS ORDERED: CARBOHYDRATES FOR HYPOGLYCEMIA PO PRN (16:15)
[2020-07-21] MEDS ORDERED: DEXTROSE 50% 50 ML SYRINGE IV PRN (16:15)
[2020-07-21] MEDS ORDERED: PREGABALIN 75 MG CAP PO STA (17:02)
[2020-07-21] MEDS: INSULIN ASPART 100 UNITS/ML 3 ML PEN SC SCH ×2 (17:22→21:17)
[2020-07-21] MEDS ORDERED: INSULIN GLARGINE SOLOSTAR 100 UNITS/ML 3 ML PEN SC SCH (21:00)
[2020-07-21] MEDS: CLOTRIMAZOLE 1% CR 15 GM TUBE TOP SCH (21:04)
[2020-07-21] MEDS: OXYBUTYNIN CHLORIDE 5 MG TAB PO SCH (21:04)
[2020-07-21] MEDS: ATORVASTATIN 20 MG TAB PO SCH (21:04)
[2020-07-21] MEDS: levETIRAcetam 500 MG TAB PO SCH (21:04)
[2020-07-21] MEDS: DOCUSATE SODIUM 100 MG CAP PO SCH (21:04)
[2020-07-21] MEDS: PREGABALIN 150 MG CAP PO SCH (21:13)
[2020-07-22 06:20] LABS: Basophils # (auto) 0.05 K/uL (0-0.2); Basophils % (auto) 0.6 %; Eosinophils # (auto) 0.22 K/uL (0-0.5); Eosinophils % (auto) 2.7 %; Hematocrit (blood only) 40.3 % (37-47); Hemoglobin 13.3 g/dL (12.0-16.0); Immature Granulocytes # (auto) 0.02 K/uL (0.00-0.02); Immature Granulocytes % (auto) 0.2 %; Lymphocytes # (auto) 2.06 K/uL (1.2-3.4); Lymphocytes % (auto) 25.2 %; Mean Corpuscular Hemoglobin 27.7 pg (25-34); Mean Platelet Volume 9.9 fL (7.4-10.4); Monocytes # (auto) 0.81 K/uL (0.11-0.59); Monocytes % (auto) 9.9 %; Neutrophils # (auto) 5.02 K/uL (1.4-6.5); Neutrophils % (auto) 61.4 %; Platelet Count 337 K/uL (130-400); RDW Coefficient of Variation 15.5 % (11.5-14.5); RDW Standard Deviation 47.9 fL (36.4-46.3); White Blood Count 8.18 K/uL (4.8-10.8)
[2020-07-22 06:56] LABS: Est GFR (African American) 101.1 ml/min; Potassium 3.4 mmol/L (3.5-5.1)
[2020-07-22 06:57] LABS: BUN Creatinine Ratio 13.4 (10-20); Calcium 9.2 mg/dl (8.5-10.1); Creatinine Clr Calc Pharmacy 87.2 ml/min; Est GFR (Non-African American) 87.2 ml/min
[2020-07-22] MEDS ORDERED: INSULIN GLARGINE SOLOSTAR 100 UNITS/ML 3 ML PEN SC ONE (07:45)
[2020-07-22] MEDS: ASPIRIN 81 MG ECTAB PO SCH (08:58)
[2020-07-22] MEDS: OXYBUTYNIN CHLORIDE 5 MG TAB PO SCH ×2 (08:58→20:05)
[2020-07-22] MEDS: METOPROLOL SUCC 50MG EXT REL TAB PO SCH (08:58)
[2020-07-22] MEDS: dilTIAZem HCL 180 MG CAPCR PO SCH (08:58)
[2020-07-22] MEDS: VENLAFAXINE HCL XR 150 MG CAPXR PO SCH (08:58)
[2020-07-22] MEDS: LOSARTAN POTASSIUM 50 MG TAB PO SCH (08:58)
[2020-07-22] MEDS: CHOLECALCIFEROL 1,000 UNITS 25 MCG TAB PO SCH (08:58)
[2020-07-22] MEDS: PANTOprazole 40 MG TAB PO SCH (08:58)
[2020-07-22] MEDS: CYANOCOBALAMIN 500 MCG TABLET (VITAMIN B-12) PO SCH (08:58)
[2020-07-22] MEDS: levETIRAcetam 500 MG TAB PO SCH ×2 (08:58→20:05)
[2020-07-22] MEDS: MAGNESIUM OXIDE 400 MG TAB PO SCH (08:59)
[2020-07-22] MEDS: POLYETHYLENE (MIRALAX) 17 GM PACK PO SCH (08:59)
[2020-07-22] MEDS: CLOTRIMAZOLE 1% CR 15 GM TUBE TOP SCH ×3 (08:59→20:06)
[2020-07-22] MEDS: INSULIN ASPART 100 UNITS/ML 3 ML PEN SC SCH ×4 (09:03→21:19)
[2020-07-22] MEDS: PREGABALIN 150 MG CAP PO SCH ×2 (09:10→20:08)
--- NOTE | 2020-07-22 09:58 | Electrocardiogram Report ---
Test Reason : Blood Pressure : / mmHG Vent. Rate : 098 BPM Atrial Rate : 098 BPM P-R Int : 150 ms QRS Dur : 142 ms QT Int : 398 ms P-R-T Axes : 000 -22 100 degrees QTc Int : 508 ms Poor data quality, interpretation may be adversely affected Normal sinus rhythm with sinus arrhythmia Left bundle branch block Abnormal ECG When compared with ECG of 06-MAR-2020 14:38, NC interval has decreased Vent. rate has increased BY 41 BPM Confirmed by Kings Kelly ([id number]) on 07/22/2020 9:58:14 AM Referred By: REFERRED SELF Confirmed By:Kings Kelly
[2020-07-22] MEDS: CIPROFLOXACIN / D5W 400 MG/200 ML BAG IV SCH ×2 (10:07→22:37)
[2020-07-22] MEDS: ENOXAPARIN INJ 40 MG/0.4 ML SYR SQ SCH ×2 (10:07→20:06)
--- NOTE | 2020-07-22 10:18 | Pharmacy Report ---
Pharmacy Glycemic Short Note 2 - Date of Service July 22, 2020 - Glycemic Short BSG Results (Last 24 hours): 07/21/20 07/21/20 07/21/20 11:00 11:23 16:27 Glucose 257 H POC Glucose 258 H 189 H 07/21/20 07/22/20 07/22/20 21:10 05:59 08:05 Glucose 217 H POC Glucose 179 H 195 H OUTPATIENT ANTIDIABETIC REGIMEN: * Metformin 1,000mg PO BID * Lantus 45 units SQ HS * NovoLog 6 unts BF + 12 units Lunch + 10 units HS * A1c = 8.7% on 05/09/20 ASSESSMENT: * 74 yo T2DM female with slightly sub-adequate degree of outpatient control per A1c * Pt with sustained hyperglycemia secondary to poor outpatient control, illness/infection, and sub-adequate basal insulin dosing last evening * Pt ordered Lantus 20 units last evening but outpatient dosing is 45 units HS. * Will give additional 20 units this AM and then resume 45 units SQ HS this evening * CF/CR per estimated basal insulin dosing of 45 units/day PLAN FOR INPATIENT GLYCEMIC CONTROL: * Hold outpatient oral diabetes medications * Basal insulin * Lantus 20 units SQ x 1 dose this AM * Lantus 45 units SQ HS * Bolus insulin * NovoLog per scale ACHS or Q6hrs while NPO * Goal Range: Low 110 mg/dL - High 140 mg/dL * Correction Factor: 20 mg/dL/unit * Nutritional / Prandial insulin per carb ratio of 1 unit per 6 grams CHO consumed PLAN FOR DISCHARGE: * A1C = 8.7% on 05/09/20 * Goal A1c ~ 7-8% based on age/comorbidities * Will trend BSGs during admission to determine whether basal or prandial insulin should be increased at DC for tighter control.
[2020-07-22] MEDS ORDERED: levoFLOXacin/D5W 750 MG/150 ML BAG IV SCH (12:00)
--- NOTE | 2020-07-22 13:49 | Hospitalist Progress Note ---
Date of Service July 22, 2020 Assessment & Plan (1) Pyelonephritis: Suspected left pyelonephritis however CVA angle tenderness has resolved Follow up urine and blood cultures preliminary gram-negative urine culture Continue Levaquin 750mg IV daily (renal adjusted), hopeful pansensitive as sergo ent does have antibiotic allergies (2) Weakness: PT/OT evals will determine her duration of stay and fitness to return home (3) Peripheral neuropathy: Continues on outpatient venlafaxine and lyrica (4) Sensory ataxia: As above (5) T2DM (type 2 diabetes mellitus): HbA1C 8.7 in April Consult pharmacy for glycemic control with basal bolus insulin (6) Epilepsy: Continue Keppra 500mg PO BID (7) Essential tremor: Easily noted on exam, patient reports mildly worse than usual (8) Hypertension: Continue her usual outpatient regimen with diltiazem,and losartan restart metoprolol 07/22/2020 Will hold HCTZ pending stability in BP overnight (9) DVT prophylaxis: Lovenox 40mg SQ BID (increased dose due to morbid obesity) Admission and Anticipated Discharge Date Admission Date: July 21, 2020 Subjective Patient was in good spirits today she was eating lunch she says she feels better than when she was admitted she has her noticeable essential tremor. Review of Systems Review of Systems: Mild distress and fatigue Patient has a jaw tremor no headache, blurry or double vision, patient did get lightheaded while sitting in a chair no speech or swallowing issues no chest pain, pressure or palpitations no shortness of breath, cough or wheezes no abdominal pain, nausea or vomiting, diarrhea or constipation Previous left-sided posterior abdominal pain is resolved Complains of mild dysuria no focal joint pain or swelling no back pain, CVA tenderness or radicular pain no bruising, bleeding or rashes no focal signs of weakness or numbness or altered sensation Complains of overall feeling weak no complaints of anxiety or depression.. Physical Exam Physical Exam: The patient appeared well nourished and normally developed. Patient is morbidly obese with a BMI of 47 Vital signs as documented. Head exam is normocephalic atraumatic As mentioned jaw tremor is visible Neck is without JVD, thyromegaly, or carotid bruits. Lungs are clear to auscultation, no focal loss of breath sounds Cardiac exam, Rhythm is regular.. No murmurs, rubs or gallops. Abdominal exam reveals normal bowel sounds, soft non tender, no masses No CVA angle tenderness Extremities are trace edematous bilaterally and both pedal pulses are present Neurologic exam is alert and oriented, no focal loss of strength or sensation Skin is without bruises or rashes Psychologically is without concerns for anxiety or depression Results & Data Results & [facility] ([facility]) Vital Signs (Past 12 Hours) Vital Signs Temp Pulse Resp BP Pulse Ox 07/22/20 09:01 98.6 F 98 H 16 147/80 H 90 PG Care Time/CCT Total # of Minutes Spent Total Time Spent with Patient: Total time spent is greater than 50% in coordination of care (as documented) at patient's floor/unit and/or counseling patient: Coding Level of Care Code 53399 Subseq Obs Care Lvl 3 Diagnoses Pyelonephritis N12 Weakness R53.1 Peripheral neuropathy G62.9 Sensory ataxia R27.8 T2DM (type 2 diabetes mellitus) E11.9 Epilepsy G40.909 Essential tremor G25.0 Hypertension I10 DVT prophylaxis Z29.9
[2020-07-22] MEDS: ACETAMINOPHEN 325 MG TAB PO PRN ×2 (13:53→21:32)
[2020-07-22] MEDS ORDERED: METOPROLOL SUCC 25MG EXT REL TAB PO ONE (14:00)
[2020-07-22] MEDS: DOCUSATE SODIUM 100 MG CAP PO SCH (20:05)
[2020-07-22] MEDS: ATORVASTATIN 20 MG TAB PO SCH (20:05)
[2020-07-22] MEDS: INSULIN GLARGINE SOLOSTAR 100 UNITS/ML 3 ML PEN SC SCH (21:20)
[2020-07-23] MEDS ORDERED: METOPROLOL SUCC 50MG EXT REL TAB PO SCH (09:00)
[2020-07-23] MEDS: CYANOCOBALAMIN 500 MCG TABLET (VITAMIN B-12) PO SCH (09:37)
[2020-07-23] MEDS: MAGNESIUM OXIDE 400 MG TAB PO SCH (09:37)
[2020-07-23] MEDS: CLOTRIMAZOLE 1% CR 15 GM TUBE TOP SCH ×3 (09:37→20:40)
[2020-07-23] MEDS: PANTOprazole 40 MG TAB PO SCH (09:37)
[2020-07-23] MEDS: CHOLECALCIFEROL 1,000 UNITS 25 MCG TAB PO SCH (09:37)
[2020-07-23] MEDS: ASPIRIN 81 MG ECTAB PO SCH (09:38)
[2020-07-23] MEDS: VENLAFAXINE HCL XR 150 MG CAPXR PO SCH (09:38)
[2020-07-23] MEDS: LOSARTAN POTASSIUM 50 MG TAB PO SCH (09:38)
[2020-07-23] MEDS: METOPROLOL SUCC 50MG EXT REL TAB PO SCH (09:38)
[2020-07-23] MEDS: OXYBUTYNIN CHLORIDE 5 MG TAB PO SCH ×2 (09:38→20:32)
[2020-07-23] MEDS: levETIRAcetam 500 MG TAB PO SCH ×2 (09:38→20:31)
[2020-07-23] MEDS: ENOXAPARIN INJ 40 MG/0.4 ML SYR SQ SCH ×2 (09:39→20:32)
[2020-07-23] MEDS: dilTIAZem HCL 180 MG CAPCR PO SCH (09:39)
[2020-07-23] MEDS: CIPROFLOXACIN / D5W 400 MG/200 ML BAG IV SCH (09:40)
[2020-07-23] MEDS: POLYETHYLENE (MIRALAX) 17 GM PACK PO SCH (09:40)
[2020-07-23] MEDS: INSULIN ASPART 100 UNITS/ML 3 ML PEN SC SCH ×4 (09:45→20:41)
[2020-07-23] MEDS ORDERED: INSULIN GLARGINE SOLOSTAR 100 UNITS/ML 3 ML PEN SC ONE (09:45)
[2020-07-23] MEDS ORDERED: MEROPENEM CONSULT ACITVE PRN ×2 (09:48)
[2020-07-23] MEDS: PREGABALIN 150 MG CAP PO SCH ×2 (09:55→20:32)
[2020-07-23] MEDS: hydroCHLOROthiazide 25 MG TAB PO SCH (10:43)
[2020-07-23] MEDS: MEROPENEM 500 MG in SYRINGE 0 ML IV SCH ×3 (11:03→22:00)
--- NOTE | 2020-07-23 15:17 | Pharmacy Report ---
Pharmacy Glycemic Short Note 2 - Date of Service July 23, 2020 - Glycemic Short BSG Results (Last 24 hours): 07/22/20 07/22/20 07/23/20 17:21 20:26 08:01 POC Glucose 179 H 212 H 256 H 07/23/20 12:00 POC Glucose 210 H OUTPATIENT ANTIDIABETIC REGIMEN: * Metformin 1,000mg PO BID * Lantus 45 units SQ HS * NovoLog 6 unts BF + 12 units Lunch + 10 units HS * A1c = 8.7% on 05/09/20 ASSESSMENT: 07/23/20: * BSGs remain poorly controlled, with all BSGs above goal for the past 24+ hours. * Supplemental Lantus dose provided again this morning. Novolog parameters were tightened and Metformin also resumed starting this evening, to improve insulin sensitivity. * Cipro changed to Meropenem today d/t micro C/S. 07/22 * 74 yo T2DM female with slightly sub-adequate degree of outpatient control per A1c * Pt with sustained hyperglycemia secondary to poor outpatient control, illness/infection, and sub-adequate basal insulin dosing last evening * Pt ordered Lantus 20 units last evening but outpatient dosing is 45 units HS. * Will give additional 20 units this AM and then resume 45 units SQ HS this evening * CF/CR per estimated basal insulin dosing of 45 units/day PLAN FOR INPATIENT GLYCEMIC CONTROL: * Resume Metformin 1gm PO BID with dinner this evening. * Basal insulin * Lantus 20 units SQ x 1 dose this AM * Lantus 45 units SQ HS * Bolus insulin * NovoLog per scale ACHS or Q6hrs while NPO * Goal Range: Low 110 mg/dL - High 140 mg/dL * Correction Factor: 15 mg/dL/unit * Nutritional / Prandial insulin per carb ratio of 1 unit per 5 grams CHO consumed PLAN FOR DISCHARGE: * A1C = 8.7% on 05/09/20 * Goal A1c ~ 7-8% based on age/comorbidities * Will trend BSGs during admission to determine whether basal or prandial insulin should be increased at [place] for tighter control.
--- NOTE | 2020-07-23 17:34 | Hospitalist Progress Note ---
Date of Service July 23, 2020 Assessment & Plan (1) Pyelonephritis: Suspected left pyelonephritis however CVA angle tenderness has resolved Urine culture shows Pseudomonas resistant to quinolones started on iv meropenem, planning 7 days course will discuss with pharmacy blood cultures are negative at this point time with exception of 1 0f 4 showing coagulase-negative staph likely contaminant (2) Weakness: PT/OT evals will determine her duration of stay and fitness to return home (3) Peripheral neuropathy: Continues on outpatient venlafaxine and lyrica (4) Sensory ataxia: As above (5) T2DM (type 2 diabetes mellitus): HbA1C 8.7 in April Consult pharmacy for glycemic control with basal bolus insulin (6) Epilepsy: Continue Keppra 500mg PO BID (7) Essential tremor: Easily noted on exam, patient reports mildly worse than usual (8) Hypertension: Continue her usual outpatient regimen with diltiazem,and losartan restart metoprolol 07/22/2020 Will hold HCTZ pending stability in BP overnight (9) DVT prophylaxis: Lovenox 40mg SQ BID (increased dose due to morbid obesity) Admission and Anticipated Discharge Date Admission Date: July 21, 2020 Subjective Patient was in good spirits today she was eating lunch. She is not thrilled when she found out she had a resistant Pseudomonas in her urine that is going to need intravenous antibiotics. He still wishes not to go to a usp. She however does not have family support at home to administer antibiotics 3 times a day Review of Systems Review of Systems: Mild distress and fatigue Patient has a jaw tremor this is slight no headache, blurry or double vision, patient did get lightheaded while sitting in a chair however vital signs were stable no speech or swallowing issues no chest pain, pressure or palpitations no shortness of breath, cough or wheezes no abdominal pain, nausea or vomiting, diarrhea or constipation Previous left-sided posterior abdominal pain is resolved Complains of mild dysuria no focal joint pain or swelling no back pain, CVA tenderness or radicular pain no bruising, bleeding or rashes no focal signs of weakness or numbness or altered sensation Complains of overall feeling weak no complaints of anxiety or depression.. Physical Exam Physical Exam: The patient appeared well nourished and normally developed. Patient is morbidly obese with a BMI of 47 Vital signs as documented. Head exam is normocephalic atraumatic As mentioned jaw tremor is visible Neck is without JVD, thyromegaly, or carotid bruits. Lungs are clear to auscultation, no focal loss of breath sounds Cardiac exam, Rhythm is regular.. No murmurs, rubs or gallops. Abdominal exam reveals normal bowel sounds, soft non tender, no masses No CVA angle tenderness Extremities are trace edematous bilaterally and both pedal pulses are present Neurologic exam is alert and oriented, no focal loss of strength or sensation Skin is without bruises or rashes Psychologically is without concerns for anxiety or depression Results & Data Results & Data ([facility]) Vital Signs (Past 12 Hours) Vital Signs Temp Pulse Resp BP Pulse Ox 07/23/20 15:15 98.4 F 80 18 114/61 90 07/23/20 08:02 97.9 F 88 18 135/74 92 PG Care Time/CCT Total # of Minutes Spent Total Time Spent with Patient: Total time spent is greater than 50% in coordination of care (as documented) at patient's floor/unit and/or counseling patient: Coding Level of Care Code 32952 Subseq Hosp Care Lvl 2 Diagnoses Pyelonephritis N12 Weakness R53.1 Peripheral neuropathy G62.9 Sensory ataxia R27.8 T2DM (type 2 diabetes mellitus) E11.9 Epilepsy G40.909 Essential tremor G25.0 Hypertension I10 DVT prophylaxis Z29.9
[2020-07-23] MEDS: metFORMIN HCL 500 MG TAB PO SCH (17:40)
[2020-07-23] MEDS: DOCUSATE SODIUM 100 MG CAP PO SCH (20:31)
[2020-07-23] MEDS: ATORVASTATIN 20 MG TAB PO SCH (20:32)
[2020-07-23] MEDS: INSULIN GLARGINE SOLOSTAR 100 UNITS/ML 3 ML PEN SC SCH (20:42)
[2020-07-23] MEDS: ACETAMINOPHEN 325 MG TAB PO PRN (21:57)
[2020-07-24] MEDS: ACETAMINOPHEN 325 MG TAB PO PRN ×2 (04:04→13:07)
[2020-07-24] MEDS: MEROPENEM 500 MG in SYRINGE 0 ML IV SCH ×4 (04:06→21:00)
[2020-07-24] MEDS: PANTOprazole 40 MG TAB PO SCH (09:15)
[2020-07-24] MEDS: MAGNESIUM OXIDE 400 MG TAB PO SCH (09:15)
[2020-07-24] MEDS: ASPIRIN 81 MG ECTAB PO SCH (09:15)
[2020-07-24] MEDS: VENLAFAXINE HCL XR 150 MG CAPXR PO SCH (09:15)
[2020-07-24] MEDS: hydroCHLOROthiazide 25 MG TAB PO SCH (09:16)
[2020-07-24] MEDS: METOPROLOL SUCC 50MG EXT REL TAB PO SCH (09:16)
[2020-07-24] MEDS: dilTIAZem HCL 180 MG CAPCR PO SCH (09:16)
[2020-07-24] MEDS: metFORMIN HCL 500 MG TAB PO SCH ×2 (09:16→17:30)
[2020-07-24] MEDS: CHOLECALCIFEROL 1,000 UNITS 25 MCG TAB PO SCH (09:16)
[2020-07-24] MEDS: CLOTRIMAZOLE 1% CR 15 GM TUBE TOP SCH ×3 (09:16→20:49)
[2020-07-24] MEDS: LOSARTAN POTASSIUM 50 MG TAB PO SCH (09:16)
[2020-07-24] MEDS: OXYBUTYNIN CHLORIDE 5 MG TAB PO SCH ×2 (09:17→20:39)
[2020-07-24] MEDS: ENOXAPARIN INJ 40 MG/0.4 ML SYR SQ SCH ×2 (09:17→20:40)
[2020-07-24] MEDS: CYANOCOBALAMIN 500 MCG TABLET (VITAMIN B-12) PO SCH (09:17)
[2020-07-24] MEDS: levETIRAcetam 500 MG TAB PO SCH ×2 (09:17→20:37)
[2020-07-24] MEDS: POLYETHYLENE (MIRALAX) 17 GM PACK PO SCH (09:20)
[2020-07-24] MEDS: PREGABALIN 150 MG CAP PO SCH ×2 (09:20→20:48)
[2020-07-24] MEDS: INSULIN ASPART 100 UNITS/ML 3 ML PEN SC SCH ×4 (09:33→20:50)
--- NOTE | 2020-07-24 13:31 | Pharmacy Report ---
Pharmacy Glycemic Short Note 2 - Date of Service July 24, 2020 - Glycemic Short BSG Results (Last 24 hours): 07/23/20 07/23/20 07/24/20 17:15 20:20 08:01 POC Glucose 92 153 H 185 H 07/24/20 12:14 POC Glucose 242 H OUTPATIENT ANTIDIABETIC REGIMEN: * Metformin 1,000mg PO BID * Lantus 45 units SQ HS * NovoLog 6 unts BF + 12 units Lunch + 10 units HS * A1c = 8.7% on 05/09/20 ASSESSMENT: 07/24 * BSGs improved yesterday afternoon after AM hyperglycemia, metformin had been added back to regimen * Fasting this AM 185 mg/dL which is improved from yesterday, will dose lantus as daily with scale at dinner, can move to bedtime 07/23/20: * BSGs remain poorly controlled, with all BSGs above goal for the past 24+ hours. * Supplemental Lantus dose provided again this morning. Novolog parameters were tightened and Metformin also resumed starting this evening, to improve insulin sensitivity. * Cipro changed to Meropenem today d/t micro C/S. 07/22 * 74 yo T2DM female with slightly sub-adequate degree of outpatient control per A1c * Pt with sustained hyperglycemia secondary to poor outpatient control, illness/infection, and sub-adequate basal insulin dosing last evening * Pt ordered Lantus 20 units last evening but outpatient dosing is 45 units HS. * Will give additional 20 units this AM and then resume 45 units SQ HS this evening * CF/CR per estimated basal insulin dosing of 45 units/day PLAN FOR INPATIENT GLYCEMIC CONTROL: * Resume Metformin 1gm PO BID with dinner this evening. * Basal insulin * Lantus 55/65/70 with dinner * Bolus insulin * NovoLog per scale ACHS or Q6hrs while NPO * Goal Range: Low 110 mg/dL - High 140 mg/dL * Correction Factor: 15 mg/dL/unit * Nutritional / Prandial insulin per carb ratio of 1 unit per 5 grams CHO consumed PLAN FOR DISCHARGE: * A1C = 8.7% on 05/09/20 * Goal A1c ~ 7-8% based on age/comorbidities * Will trend BSGs during admission to determine whether basal or prandial insuli n should be increased at AL for tighter control.
[2020-07-24] MEDS: INSULIN GLARGINE SOLOSTAR 100 UNITS/ML 3 ML PEN SC SCH (17:51)
--- NOTE | 2020-07-24 18:23 | Hospitalist Progress Note ---
Date of Service July 24, 2020 Assessment & Plan (1) Pyelonephritis: Suspected left pyelonephritis however CVA angle tenderness has resolved Urine culture shows Pseudomonas resistant to quinolones started on iv meropenem, planning 7 days course will discuss with pharmacy blood cultures are negative at this point time with exception of 1 0f 4 showing coagulase-negative staph likely contaminant (2) Weakness: PT/OT evals will determine her duration of stay and fitness to return home (3) Peripheral neuropathy: Continues on outpatient venlafaxine and lyrica (4) Sensory ataxia: As above (5) T2DM (type 2 diabetes mellitus): HbA1C 8.7 in April Consult pharmacy for glycemic control with basal bolus insulin (6) Epilepsy: Continue Keppra 500mg PO BID (7) Essential tremor: Easily noted on exam, patient reports mildly worse than usual (8) Hypertension: Continue her usual outpatient regimen with diltiazem,and losartan restart metoprolol 07/22/2020 Will hold HCTZ pending stability in BP overnight (9) DVT prophylaxis: Lovenox 40mg SQ BID (increased dose due to morbid obesity) (10) Hip pain: check x ray and start tramadol Admission and Anticipated Discharge Date Admission Date: July 24, 2020 Subjective Patient was in good spirits today she was eating lunch. She is not thrilled when she found out she had a resistant Pseudomonas in her urine that is going to need intravenous antibiotics. SHe still wishes not to go to a penitentiary. She however does not have family support at home to administer antibiotics 3 times a day today she is bothered more that other days with her left hip Review of Systems Review of Systems: Mild distress and fatigue Patient has a jaw tremor this is slight no headache, blurry or double vision, patient did get lightheaded while sitting in a chair however vital signs were stable no speech or swallowing issues no chest pain, pressure or palpitations no shortness of breath, cough or wheezes no abdominal pain, nausea or vomiting, diarrhea or constipation Previous left-sided posterior abdominal pain is resolved Complains of mild dysuria no focal joint pain or swelling no back pain, CVA tenderness or radicular pain no bruising, bleeding or rashes no focal signs of weakness or numbness or altered sensation Complains of overall feeling weak no complaints of anxiety or depression.. Musculoskeletal: left hip pain Physical Exam Physical Exam: The patient appeared well nourished and normally developed. Patient is morbidly obese with a BMI of 47 Vital signs as documented. Head exam is normocephalic atraumatic As mentioned jaw tremor is visible Neck is without JVD, thyromegaly, or carotid bruits. Lungs are clear to auscultation, no focal loss of breath sounds Cardiac exam, Rhythm is regular.. No murmurs, rubs or gallops. Abdominal exam reveals normal bowel sounds, soft non tender, no masses No CVA angle tenderness Extremities are trace edematous bilaterally and both pedal pulses are present there is lateral left hip pain, ? gr troch bursitis but will check x ray Neurologic exam is alert and oriented, no focal loss of strength or sensation Skin is without bruises or rashes Psychologically is without concerns for anxiety or depression Results & Data Results & Data ([facility]) Vital Signs (Past 12 Hours) Vital Signs Temp Pulse Resp BP Pulse Ox 07/24/20 15:26 98.1 F 79 18 123/64 92 07/24/20 07:30 98.4 F 78 18 139/85 92 PG Care Time/CCT Total # of Minutes Spent Total Time Spent with Patient: Total time spent is greater than 50% in coordination of care (as documented) at patient's floor/unit and/or counseling patient: Coding Level of Care Code 12605 Subseq Hosp Care Lvl 3 Diagnoses Pyelonephritis N12 Weakness R53.1 Peripheral neuropathy G62.9 Sensory ataxia R27.8 T2DM (type 2 diabetes mellitus) E11.9 Epilepsy G40.909 Essential tremor G25.0 Hypertension I10 DVT prophylaxis Z29.9 Hip pain M25.559
--- NOTE | 2020-07-24 19:30 | XRay Report ---
SINGLE VIEW PELVIS; 2 VIEWS LEFT HIP CLINICAL HISTORY: Atraumatic left hip pain. FINDINGS: An AP view of the pelvis with AP and frog-leg views of the left hip are compared to study d ated 02/24/2020. The skeletal structures are osteopenic. There is no radiographic evidence of acute fra cture involving the hips or bony pelvis. Mild degenerative joint space narrowing is seen in the hips. Sclerotic change is noted in the sacroiliac joints and pubic symphysis. Lumbosacral spondylosis is p artially visualized. The overlying soft tissues are normal as imaged. Numerous phleboliths are seen i n the pelvis. No bowel obstruction is identified. IMPRESSION: No acute bony abnormality is identified. Electronically signed by: Huan Kaur M.D. 07/24/2020 7:28 PM
[2020-07-24] MEDS: DOCUSATE SODIUM 100 MG CAP PO SCH (20:38)
[2020-07-24] MEDS: ATORVASTATIN 20 MG TAB PO SCH (20:39)
[2020-07-24] MEDS: traMADol HCL 50 MG TABLET PO PRN (22:19)
[2020-07-25] MEDS: MEROPENEM 500 MG in SYRINGE 0 ML IV SCH ×4 (05:17→21:24)
[2020-07-25 07:26] LABS: Hematocrit (blood only) 36.9 % (37-47); Hemoglobin 12.2 g/dL (12.0-16.0); Mean Corpuscular Hemoglobin 27.2 pg (25-34); Mean Corpuscular Hgb Conc 33.1 g/dL (32-36); Mean Corpuscular Volume 82.2 fL (80-100); Mean Platelet Volume 10.3 fL (7.4-10.4); Platelet Count 235 K/uL (130-400); RDW Coefficient of Variation 15.5 % (11.5-14.5); RDW Standard Deviation 46.6 fL (36.4-46.3); Red Blood Count 4.49 M/uL (4.2-5.4)
[2020-07-25] MEDS: POLYETHYLENE (MIRALAX) 17 GM PACK PO SCH (09:01)
[2020-07-25] MEDS: LOSARTAN POTASSIUM 50 MG TAB PO SCH (09:02)
[2020-07-25] MEDS: metFORMIN HCL 500 MG TAB PO SCH ×2 (09:02→17:58)
[2020-07-25] MEDS: CYANOCOBALAMIN 500 MCG TABLET (VITAMIN B-12) PO SCH (09:02)
[2020-07-25] MEDS: CHOLECALCIFEROL 1,000 UNITS 25 MCG TAB PO SCH (09:02)
[2020-07-25] MEDS: VENLAFAXINE HCL XR 150 MG CAPXR PO SCH (09:03)
[2020-07-25] MEDS: PANTOprazole 40 MG TAB PO SCH (09:03)
[2020-07-25] MEDS: dilTIAZem HCL 180 MG CAPCR PO SCH (09:03)
[2020-07-25] MEDS: levETIRAcetam 500 MG TAB PO SCH ×2 (09:03→20:39)
[2020-07-25] MEDS: ASPIRIN 81 MG ECTAB PO SCH (09:03)
[2020-07-25] MEDS: MAGNESIUM OXIDE 400 MG TAB PO SCH (09:03)
[2020-07-25] MEDS: METOPROLOL SUCC 50MG EXT REL TAB PO SCH (09:04)
[2020-07-25] MEDS: OXYBUTYNIN CHLORIDE 5 MG TAB PO SCH ×2 (09:04→20:39)
[2020-07-25] MEDS: hydroCHLOROthiazide 25 MG TAB PO SCH (09:04)
[2020-07-25] MEDS: ENOXAPARIN INJ 40 MG/0.4 ML SYR SQ SCH ×2 (09:04→20:40)
[2020-07-25] MEDS: INSULIN ASPART 100 UNITS/ML 3 ML PEN SC SCH ×4 (09:06→20:42)
[2020-07-25] MEDS: PREGABALIN 150 MG CAP PO SCH ×2 (09:11→20:38)
[2020-07-25] MEDS: CLOTRIMAZOLE 1% CR 15 GM TUBE TOP SCH ×3 (09:32→20:40)
[2020-07-25] MEDS: traMADol HCL 50 MG TABLET PO PRN (11:02)
--- NOTE | 2020-07-25 14:41 | Pharmacy Report ---
Pharmacy Glycemic Short Note 2 - Date of Service July 25, 2020 - Glycemic Short BSG Results (Last 24 hours): 07/24/20 07/24/20 07/25/20 17:16 20:43 08:29 POC Glucose 176 H 187 H 215 H 07/25/20 11:50 POC Glucose 215 H OUTPATIENT ANTIDIABETIC REGIMEN: * Metformin 1,000mg PO BID * Lantus 45 units SQ HS * NovoLog 6 unts BF + 12 units Lunch + 10 units HS * A1c = 8.7% on 05/09/20 ASSESSMENT: 07/25/20: * Patient continues to require more insulin than expected (>100 units per day, with continued hyperglycemia). * Novolog parameters adjusted today to provide additional carb coverage. Will also increase Lantus scale slightly this evening. * Will continue to adjust until BSGs resolve. 07/24 * BSGs improved yesterday afternoon after AM hyperglycemia, metformin had been added back to regimen * Fasting this AM 185 mg/dL which is improved from yesterday, will dose lantus as daily with scale at dinner, can move to bedtime 07/23 * BSGs remain poorly controlled, with all BSGs above goal for the past 24+ hours. * Supplemental Lantus dose provided again this morning. Novolog parameters were tightened and Metformin also resumed starting this evening, to improve insulin sensitivity. * Cipro changed to Meropenem today d/t micro C/S. 07/22 * 74 yo T2DM female with slightly sub-adequate degree of outpatient control per A1c * Pt with sustained hyperglycemia secondary to poor outpatient control, illness/infection, and sub-adequate basal insulin dosing last evening * Pt ordered Lantus 20 units last evening but outpatient dosing is 45 units HS. * Will give additional 20 units this AM and then resume 45 units SQ HS this evening * CF/CR per estimated basal insulin dosing of 45 units/day PLAN FOR INPATIENT GLYCEMIC CONTROL: * Metformin 1gm PO BID * Basal insulin * Lantus 60/70/75 units SQ HS, per scale * Bolus insulin * NovoLog per scale ACHS or Q6hrs while NPO * Goal Range: Low 110 mg/dL - High 140 mg/dL * Correction Factor: 15 mg/dL/unit * Nutritional / Prandial insulin per carb ratio of 1 unit per 4 grams CHO consumed PLAN FOR DISCHARGE: * A1C = 8.7% on 05/09/20 * Goal A1c ~ 7-8% based on age/comorbidities * Will trend BSGs during admission to determine whether basal or prandial insulin should be increased at DC for tighter control.
--- NOTE | 2020-07-25 18:30 | Hospitalist Progress Note ---
Date of Service July 25, 2020 Assessment & Plan (1) Pyelonephritis: initially Suspected left pyelonephritis however CVA angle tenderness has resolved Urine culture shows Pseudomonas resistant to quinolones started on iv meropenem, planning 7 days course will discuss with pharmacy blood cultures are negative at this point time with exception of 1 0f 4 showing coagulase-negative staph likely contaminant (2) Weakness: PT/OT evals will determine her duration of stay and fitness to return home (3) Peripheral neuropathy: Continues on outpatient venlafaxine and lyrica (4) Sensory ataxia: As above (5) T2DM (type 2 diabetes mellitus): HbA1C 8.7 in April Consult pharmacy for glycemic control with basal bolus insulin (6) Epilepsy: Continue Keppra 500mg PO BID (7) Essential tremor: Easily noted on exam, patient reports mildly worse than usual (8) Hypertension: Continue her usual outpatient regimen with diltiazem,and losartan restart metoprolol 07/22/2020 Will hold HCTZ pending stability in BP overnight (9) DVT prophylaxis: Lovenox 40mg SQ BID (increased dose due to morbid obesity) (10) Hip pain: negative x ray for significant osteo or fracture, consider Gr trochanteric bursitis, may inject 07/26 Admission and Anticipated Discharge Date Admission Date: July 24, 2020 Subjective Patient continues to be patient while we are here treating her resistant Pseudomonas in her urine that is going to need intravenous antibiotics. today she is bothered more that other days with her left hip, x rays are not with abnormalities, has likely Gr trochanteric bursitis Review of Systems Review of Systems: Mild distress and fatigue Patient has a jaw tremor this is slight no headache, blurry or double vision, patient did get lightheaded while sitting in a chair however vital signs were stable no speech or swallowing issues no chest pain, pressure or palpitations no shortness of breath, cough or wheezes no abdominal pain, nausea or vomiting, diarrhea or constipation Previous left-sided posterior abdominal pain is resolved Complains of mild dysuria left lateral hip pain point tender no back pain, CVA tenderness or radicular pain no bruising, bleeding or rashes no focal signs of weakness or numbness or altered sensation Complains of overall feeling weak no complaints of anxiety or depression.. Physical Exam Physical Exam: The patient appeared well nourished and normally developed. Viky atient is morbidly obese with a BMI of 47 Vital signs as documented. Head exam is normocephalic atraumatic As mentioned jaw tremor is visible Neck is without JVD, thyromegaly, or carotid bruits. Lungs are clear to auscultation, no focal loss of breath sounds Cardiac exam, Rhythm is regular.. No murmurs, rubs or gallops. Abdominal exam reveals normal bowel sounds, soft non tender, no masses No CVA angle tenderness Extremities are trace edematous bilaterally and both pedal pulses are present there is lateral left hip pain, ? gr troch bursitis Neurologic exam is alert and oriented, no focal loss of strength or sensation Skin is without bruises or rashes Psychologically is without concerns for anxiety or depression Results & Data Results & Data ([facility]) Vital Signs (Past 12 Hours) Vital Signs Temp Pulse Resp BP Pulse Ox 07/25/20 16:02 98.2 F 70 18 100/67 90 07/25/20 11:38 20 93 07/25/20 07:43 98.1 F 81 18 136/72 90 PG Care Time/CCT Total # of Minutes Spent Total Time Spent with Patient: Total time spent is greater than 50% in coordination of care (as documented) at patient's floor/unit and/or counseling patient: Coding Level of Care Code 99256 Subseq Hosp Care Lvl 2 Diagnoses Pyelonephritis N12 Weakness R53.1 Peripheral neuropathy G62.9 Sensory ataxia R27.8 T2DM (type 2 diabetes mellitus) E11.9 Epilepsy G40.909 Essential tremor G25.0 Hypertension I10 DVT prophylaxis Z29.9 Hip pain M25.559
[2020-07-25] MEDS: ATORVASTATIN 20 MG TAB PO SCH (20:38)
[2020-07-25] MEDS: DOCUSATE SODIUM 100 MG CAP PO SCH (20:38)
[2020-07-25] MEDS: INSULIN GLARGINE SOLOSTAR 100 UNITS/ML 3 ML PEN SC SCH (20:48)
[2020-07-25 21:39] LABS: BUN Creatinine Ratio 25.5 (10-20); Calcium 9.1 mg/dl (8.5-10.1); Creatinine Clr Calc Pharmacy 65.6 ml/min; Est GFR (African American) 74.5 ml/min; Est GFR (Non-African American) 64.3 ml/min; Potassium 3.9 mmol/L (3.5-5.1)
[2020-07-26] MEDS: traMADol HCL 50 MG TABLET PO PRN (00:51)
[2020-07-26] MEDS: MEROPENEM 500 MG in SYRINGE 0 ML IV SCH ×4 (04:55→21:06)
[2020-07-26] MEDS: PREGABALIN 150 MG CAP PO SCH ×2 (09:59→20:45)
[2020-07-26] MEDS: metFORMIN HCL 500 MG TAB PO SCH ×2 (10:00→16:31)
[2020-07-26] MEDS: ASPIRIN 81 MG ECTAB PO SCH (10:00)
[2020-07-26] MEDS: CHOLECALCIFEROL 1,000 UNITS 25 MCG TAB PO SCH (10:00)
[2020-07-26] MEDS: levETIRAcetam 500 MG TAB PO SCH ×2 (10:01→20:45)
[2020-07-26] MEDS: ENOXAPARIN INJ 40 MG/0.4 ML SYR SQ SCH ×2 (10:01→20:46)
[2020-07-26] MEDS: dilTIAZem HCL 180 MG CAPCR PO SCH (10:01)
[2020-07-26] MEDS: CYANOCOBALAMIN 500 MCG TABLET (VITAMIN B-12) PO SCH (10:01)
[2020-07-26] MEDS: hydroCHLOROthiazide 25 MG TAB PO SCH (10:01)
[2020-07-26] MEDS: LOSARTAN POTASSIUM 50 MG TAB PO SCH (10:02)
[2020-07-26] MEDS: MAGNESIUM OXIDE 400 MG TAB PO SCH (10:02)
[2020-07-26] MEDS: POLYETHYLENE (MIRALAX) 17 GM PACK PO SCH (10:03)
[2020-07-26] MEDS: METOPROLOL SUCC 50MG EXT REL TAB PO SCH (10:03)
[2020-07-26] MEDS: VENLAFAXINE HCL XR 150 MG CAPXR PO SCH (10:03)
[2020-07-26] MEDS: INSULIN ASPART 100 UNITS/ML 3 ML PEN SC SCH ×4 (10:03→21:50)
[2020-07-26] MEDS: PANTOprazole 40 MG TAB PO SCH (10:03)
[2020-07-26] MEDS: OXYBUTYNIN CHLORIDE 5 MG TAB PO SCH ×2 (10:03→20:45)
--- NOTE | 2020-07-26 11:23 | Pharmacy Report ---
Pharmacy Glycemic Short Note 2 - Date of Service July 26, 2020 - Glycemic Short BSG Results (Last 24 hours): 07/25/20 07/25/20 07/25/20 06:42 11:50 17:09 Glucose Cancelled POC Glucose 215 H 103 H 07/25/20 07/25/20 07/26/20 20:23 21:04 08:26 Glucose 171 H POC Glucose 168 H 162 H OUTPATIENT ANTIDIABETIC REGIMEN: * Metformin 1,000mg PO BID * Lantus 45 units SQ HS * NovoLog 6 unts BF + 12 units Lunch + 10 units HS * A1c = 8.7% on 05/09/20 ASSESSMENT: 07/26/20: * Fasting BSG has been improving, but still above goal. Will increase Lantus again this evening. * Better control throughout the day yesterday with tightened Novolog parameters. 07/25 * Patient continues to require more insulin than expected (>100 units per day, with continued hyperglycemia). * Novolog parameters adjusted today to provide additional carb coverage. Will also increase Lantus scale slightly this evening. * Will continue to adjust until BSGs resolve. 07/24 * BSGs improved yesterday afternoon after AM hyperglycemia, metformin had been added back to regimen * Fasting this AM 185 mg/dL which is improved from yesterday, will dose lantus as daily with scale at dinner, can move to bedtime 07/23 * BSGs remain poorly controlled, with all BSGs above goal for the past 24+ hours. * Supplemental Lantus dose provided again this morning. Novolog parameters were tightened and Metformin also resumed starting this evening, to improve insulin sensitivity. * Cipro changed to Meropenem today d/t micro C/S. 07/22 * 74 yo T2DM female with slightly sub-adequate degree of outpatient control per A1c * Pt with sustained hyperglycemia secondary to poor outpatient control, illness/infection, and sub-adequate basal insulin dosing last evening * Pt ordered Lantus 20 units last evening but outpatient dosing is 45 units HS. * Will give additional 20 units this AM and then resume 45 units SQ HS this evening * CF/CR per estimated basal insulin dosing of 45 units/day PLAN FOR INPATIENT GLYCEMIC CONTROL: * Metformin 1gm PO BID * Basal insulin * Lantus 60/75/80 units SQ HS, per scale * Bolus insulin * NovoLog per scale ACHS or Q6hrs while NPO * Goal Range: Low 110 mg/dL - High 140 mg/dL * Correction Factor: 15 mg/dL/unit * Nutritional / Prandial insulin per carb ratio of 1 unit per 4 grams CHO consumed PLAN FOR DISCHARGE: * A1C = 8.7% on 05/09/20 * Goal A1c ~ 7-8% based on age/comorbidities * Will trend BSGs during admission to determine whether basal or prandial insulin should be increased at DC for tighter control.
[2020-07-26] MEDS: CLOTRIMAZOLE 1% CR 15 GM TUBE TOP SCH ×3 (13:07→20:46)
--- NOTE | 2020-07-26 17:07 | Hospitalist Progress Note ---
Date of Service July 26, 2020 Assessment & Plan (1) Pyelonephritis: initially Suspected left pyelonephritis however CVA angle tenderness has resolved Urine culture shows Pseudomonas resistant to quinolones started on iv meropenem, planning 7 days course blood cultures are negative at this point time with exception of 1 0f 4 showing coagulase-negative staph likely contaminant (2) Weakness: PT/OT confirmes her fitness to return home (3) Peripheral neuropathy: Continues on outpatient venlafaxine and lyrica (4) Sensory ataxia: As above (5) T2DM (type 2 diabetes mellitus): HbA1C 8.7 in April Consult pharmacy for glycemic control with basal bolus insulin (6) Epilepsy: Continue Keppra 500mg PO BID (7) Essential tremor: Easily noted on exam, patient reports mildly worse than usual (8) Hypertension: Continue her usual outpatient regimen with diltiazem,and losartan restart metoprolol 07/22/2020 Will hold HCTZ (9) DVT prophylaxis: Lovenox 40mg SQ BID (increased dose due to morbid obesity) (10) Hip pain: negative x ray for significant osteo or fracture, consider Gr trochanteric bursitis, may inject Admission and Anticipated Discharge Date Admission Date: July 24, 2020 Subjective Patient continues to be patient while we are here treating her resistant Pseudomonas in her urine that is going to need intravenous antibiotics. today she is bothered more that other days with her left hip, x rays are not with abnormalities, has likely Gr trochanteric bursitis pt has a dip in sodium will modestly fluid restrict. Review of Systems Review of Systems: Mild distress and fatigue Patient has a jaw tremor this is slight no headache, blurry or double vision, patient did get lightheaded while sitting in a chair however vital signs were stable no speech or swallowing issues no chest pain, pressure or palpitations no shortness of breath, cough or wheezes no abdominal pain, nausea or vomiting, diarrhea or constipation Previous left-sided posterior abdominal pain is resolved Complains of mild dysuria left lateral hip pain point tender no back pain, CVA tenderness or radicular pain no bruising, bleeding or rashes no focal signs of weakness or numbness or altered sensation Complains of overall feeling weak no complaints of anxiety or depression.. Musculoskeletal: left hip pain Physical Exam Physical Exam: The patient appeared well nourished and normally developed. Patient is morbidly obese with a BMI of 47 Vital signs as documented. Head exam is normocephalic atraumatic As mentioned jaw tremor is visible Neck is without JVD, thyromegaly, or carotid bruits. Lungs are clear to auscultation, no focal loss of breath sounds Cardiac exam, Rhythm is regular.. No murmurs, rubs or gallops. Abdominal exam reveals normal bowel sounds, soft non tender, no masses No CVA angle tenderness Extremities are trace edematous bilaterally and both pedal pulses are present there is lateral left hip pain, ? gr troch bursitis Neurologic exam is alert and oriented, no focal loss of strength or sensation Skin is without bruises or rashes Psychologically is without concerns for anxiety or depression Results & Data Results & Data ([facility]) Vital Signs (Past 12 Hours) Vital Signs Temp Pulse Resp BP BP Pulse Ox 07/26/20 15:37 98.4 F 68 18 113/64 94 07/26/20 08:03 97.9 F 65 18 145/71 H 98 PG Care Time/CCT Total # of Minutes Spent Total Time Spent with Patient: Total time spent is greater than 50% in coordination of care (as documented) at patient's floor/unit and/or counseling patient: Coding Level of Care Code 17577 Subseq Hosp Care Lvl 2 Diagnoses Pyelonephritis N12 Weakness R53.1 Peripheral neuropathy G62.9 Sensory ataxia R27.8 T2DM (type 2 diabetes mellitus) E11.9 Epilepsy G40.909 Essential tremor G25.0 Hypertension I10 DVT prophylaxis Z29.9 Hip pain M25.559
[2020-07-26] MEDS: DOCUSATE SODIUM 100 MG CAP PO SCH (20:45)
[2020-07-26] MEDS: ATORVASTATIN 20 MG TAB PO SCH (20:46)
[2020-07-26] MEDS: INSULIN GLARGINE SOLOSTAR 100 UNITS/ML 3 ML PEN SC SCH (21:51)
[2020-07-27] MEDS: MEROPENEM 500 MG in SYRINGE 0 ML IV SCH ×4 (03:43→21:13)
[2020-07-27 06:52] LABS: Hematocrit (blood only) 34.4 % (37-47); Hemoglobin 11.2 g/dL (12.0-16.0); Mean Corpuscular Hemoglobin 27.3 pg (25-34); Mean Corpuscular Hgb Conc 32.6 g/dL (32-36); Mean Corpuscular Volume 83.7 fL (80-100); Mean Platelet Volume 9.8 fL (7.4-10.4); Platelet Count 297 K/uL (130-400); RDW Coefficient of Variation 15.4 % (11.5-14.5); RDW Standard Deviation 47.7 fL (36.4-46.3); Red Blood Count 4.11 M/uL (4.2-5.4); White Blood Count 7.12 K/uL (4.8-10.8)
[2020-07-27 07:29] LABS: BUN Creatinine Ratio 27.9 (10-20); Calcium 8.6 mg/dl (8.5-10.1); Creatinine Clr Calc Pharmacy 94.2 ml/min; Est GFR (African American) 103.7 ml/min; Est GFR (Non-African American) 89.5 ml/min; Potassium 3.8 mmol/L (3.5-5.1)
[2020-07-27] MEDS: POLYETHYLENE (MIRALAX) 17 GM PACK PO SCH (08:30)
[2020-07-27] MEDS: ENOXAPARIN INJ 40 MG/0.4 ML SYR SQ SCH ×2 (08:31→21:06)
[2020-07-27] MEDS: dilTIAZem HCL 180 MG CAPCR PO SCH (08:32)
[2020-07-27] MEDS: CYANOCOBALAMIN 500 MCG TABLET (VITAMIN B-12) PO SCH (08:32)
[2020-07-27] MEDS: ASPIRIN 81 MG ECTAB PO SCH (08:32)
[2020-07-27] MEDS: CHOLECALCIFEROL 1,000 UNITS 25 MCG TAB PO SCH (08:32)
[2020-07-27] MEDS: metFORMIN HCL 500 MG TAB PO SCH ×2 (08:32→18:18)
[2020-07-27] MEDS: levETIRAcetam 500 MG TAB PO SCH ×2 (08:33→21:08)
[2020-07-27] MEDS: hydroCHLOROthiazide 25 MG TAB PO SCH (08:33)
[2020-07-27] MEDS: METOPROLOL SUCC 50MG EXT REL TAB PO SCH (08:33)
[2020-07-27] MEDS: MAGNESIUM OXIDE 400 MG TAB PO SCH (08:33)
[2020-07-27] MEDS: PANTOprazole 40 MG TAB PO SCH (08:33)
[2020-07-27] MEDS: VENLAFAXINE HCL XR 150 MG CAPXR PO SCH (08:33)
[2020-07-27] MEDS: OXYBUTYNIN CHLORIDE 5 MG TAB PO SCH ×2 (08:33→21:08)
[2020-07-27] MEDS: LOSARTAN POTASSIUM 50 MG TAB PO SCH (08:33)
[2020-07-27] MEDS: PREGABALIN 150 MG CAP PO SCH ×2 (09:22→21:07)
[2020-07-27] MEDS: CLOTRIMAZOLE 1% CR 15 GM TUBE TOP SCH ×3 (09:22→21:07)
[2020-07-27] MEDS: INSULIN ASPART 100 UNITS/ML 3 ML PEN SC SCH ×4 (09:23→21:11)
--- NOTE | 2020-07-27 19:32 | Hospitalist Progress Note ---
Date of Service July 27, 2020 Assessment & Plan (1) Pyelonephritis: initially Suspected left pyelonephritis however CVA angle tenderness has resolved Urine culture shows Pseudomonas resistant to quinolones started on iv meropenem, planning 7 days course blood cultures are negative at this point time with exception of 1 0f 4 showing coagulase-negative staph likely contaminant (2) Weakness: PT/OT confirmes her fitness to return home (3) Peripheral neuropathy: Continues on outpatient venlafaxine and lyrica (4) Sensory ataxia: As above (5) T2DM (type 2 diabetes mellitus): HbA1C 8.7 in April Consult pharmacy for glycemic control with basal bolus insulin (6) Epilepsy: Continue Keppra 500mg PO BID (7) Essential tremor: Easily noted on exam, patient reports mildly worse than usual (8) Hypertension: Continue her usual outpatient regimen with diltiazem,and losartan restart metoprolol 07/22/2020 Will hold HCTZ (9) DVT prophylaxis: Lovenox 40mg SQ BID (increased dose due to morbid obesity) (10) Hip pain: negative x ray for significant osteo or fracture, consider Gr trochanteric bursitis, may inject Admission and Anticipated Discharge Date Admission Date: July 24, 2020 Subjective Patient continues to be patient while we are here treating her resistant Pseudomonas in her urine that is going to need intravenous antibiotics. today she is bothered more that other days with her left hip, x rays are not with abnormalities, has likely Gr trochanteric bursitis pt has a dip in sodium will modestly fluid restrict. Review of Systems Review of Systems: Mild distress and fatigue Patient has a jaw tremor this is slight no headache, blurry or double vision, patient did get lightheaded while sitting in a chair however vital signs were stable no speech or swallowing issues no chest pain, pressure or palpitations no shortness of breath, cough or wheezes no abdominal pain, nausea or vomiting, diarrhea or constipation Previous left-sided posterior abdominal pain is resolved Complains of mild dysuria left lateral hip pain point tender no back pain, CVA tenderness or radicular pain no bruising, bleeding or rashes no focal signs of weakness or numbness or altered sensation Complains of overall feeling weak no complaints of anxiety or depression.. Physical Exam Physical Exam: The patient appeared well nourished and normally developed. Patient is morbidly obese with a BMI of 47 Vital signs as documented. Head exam is normocephalic atraumatic As mentioned jaw tremor is visible Neck is without JVD, thyromegaly, or carotid bruits. Lungs are clear to auscultation, no focal loss of breath sounds Cardiac exam, Rhythm is regular.. No murmurs, rubs or gallops. Abdominal exam reveals normal bowel sounds, soft non tender, no masses No CVA angle tenderness Extremities are trace edematous bilaterally and both pedal pulses are present there is lateral left hip pain, ? gr troch bursitis Neurologic exam is alert and oriented, no focal loss of strength or sensation Skin is without bruises or rashes Psychologically is without concerns for anxiety or depression Results & Data Results & Data ([facility]) Vital Signs (Past 12 Hours) Vital Signs Temp Pulse Resp BP Pulse Ox 07/27/20 15:58 97.7 F 78 16 99/65 L 92 07/27/20 08:19 98.4 F 78 16 142/81 H PG Care Time/CCT Total # of Minutes Spent Total Time Spent with Patient: Total time spent is greater than 50% in coordination of care (as documented) at patient's floor/unit and/or counseling patient: Coding Level of Care Code 60890 Subseq Hosp Care Lvl 1 Diagnoses Pyelonephritis N12 Weakness R53.1 Peripheral neuropathy G62.9 Sensory ataxia R27.8 T2DM (type 2 diabetes mellitus) E11.9 Epilepsy G40.909 Essential tremor G25.0 Hypertension I10 DVT prophylaxis Z29.9 Hip pain M25.559
[2020-07-27] MEDS: DOCUSATE SODIUM 100 MG CAP PO SCH (21:07)
[2020-07-27] MEDS: ATORVASTATIN 20 MG TAB PO SCH (21:08)
[2020-07-27] MEDS: INSULIN GLARGINE SOLOSTAR 100 UNITS/ML 3 ML PEN SC SCH (21:10)
[2020-07-28] MEDS: MEROPENEM 500 MG in SYRINGE 0 ML IV SCH ×4 (04:16→21:00)
[2020-07-28] MEDS: INSULIN ASPART 100 UNITS/ML 3 ML PEN SC SCH ×4 (09:11→20:54)
[2020-07-28] MEDS: PREGABALIN 150 MG CAP PO SCH ×2 (09:15→20:47)
[2020-07-28] MEDS: POLYETHYLENE (MIRALAX) 17 GM PACK PO SCH (09:15)
[2020-07-28] MEDS: metFORMIN HCL 500 MG TAB PO SCH ×2 (09:17→18:12)
[2020-07-28] MEDS: ASPIRIN 81 MG ECTAB PO SCH (09:18)
[2020-07-28] MEDS: CYANOCOBALAMIN 500 MCG TABLET (VITAMIN B-12) PO SCH (09:18)
[2020-07-28] MEDS: CHOLECALCIFEROL 1,000 UNITS 25 MCG TAB PO SCH (09:18)
[2020-07-28] MEDS: dilTIAZem HCL 180 MG CAPCR PO SCH (09:19)
[2020-07-28] MEDS: levETIRAcetam 500 MG TAB PO SCH ×2 (09:19→20:48)
[2020-07-28] MEDS: ENOXAPARIN INJ 40 MG/0.4 ML SYR SQ SCH ×2 (09:19→20:48)
[2020-07-28] MEDS: hydroCHLOROthiazide 25 MG TAB PO SCH (09:19)
[2020-07-28] MEDS: LOSARTAN POTASSIUM 50 MG TAB PO SCH (09:20)
[2020-07-28] MEDS: CLOTRIMAZOLE 1% CR 15 GM TUBE TOP SCH ×3 (09:20→20:47)
[2020-07-28] MEDS: MAGNESIUM OXIDE 400 MG TAB PO SCH (09:21)
[2020-07-28] MEDS: PANTOprazole 40 MG TAB PO SCH (09:22)
[2020-07-28] MEDS: OXYBUTYNIN CHLORIDE 5 MG TAB PO SCH ×2 (09:22→20:47)
[2020-07-28] MEDS: METOPROLOL SUCC 50MG EXT REL TAB PO SCH (09:22)
[2020-07-28] MEDS: VENLAFAXINE HCL XR 150 MG CAPXR PO SCH (09:23)
--- NOTE | 2020-07-28 10:46 | Pharmacy Report ---
Pharmacy Glycemic Short Note 2 - Date of Service July 28, 2020 - Glycemic Short BSG Results (Last 24 hours): 07/27/20 07/27/20 07/27/20 08:23 12:10 17:13 POC Glucose 187 H 204 H 118 H 07/27/20 07/28/20 20:36 08:08 POC Glucose 96 113 H OUTPATIENT ANTIDIABETIC REGIMEN: * Metformin 1,000mg PO BID * Lantus 45 units SQ HS * NovoLog 6 unts BF + 12 units Lunch + 10 units HS * A1c = 8.7% on 05/09/20 ASSESSMENT: 07/28/20: * Blood sugars well controlled over past 48 hours, using 117-124 units of insulin/day * Continue insulin and metformin as ordered * Patient remains inpatient for IV antibiotics 07/26/20: * Fasting BSG has been improving, but still above goal. Will increase Lantus again this evening. * Better control throughout the day yesterday with tightened Novolog parameters. 07/25 * Patient continues to require more insulin than expected (>100 units per day, with continued hyperglycemia). * Novolog parameters adjusted today to provide additional carb coverage. Will also increase Lantus scale slightly this evening. * Will continue to adjust until BSGs resolve. 07/24 * BSGs improved yesterday afternoon after AM hyperglycemia, metformin had been added back to regimen * Fasting this AM 185 mg/dL which is improved from yesterday, will dose lantus as daily with scale at dinner, can move to bedtime 07/23 * BSGs remain poorly controlled, with all BSGs above goal for the past 24+ hours. * Supplemental Lantus dose provided again this morning. Novolog parameters were tightened and Metformin also resumed starting this evening, to improve insulin sensitivity. * Cipro changed to Meropenem today d/t micro C/S. 07/22 * 74 yo T2DM female with slightly sub-adequate degree of outpatient control per A1c * Pt with sustained hyperglycemia secondary to poor outpatient control, illness/infection, and sub-adequate basal insulin dosing last evening * Pt ordered Lantus 20 units last evening but outpatient dosing is 45 units HS. * Will give additional 20 units this AM and then resume 45 units SQ HS this evening * CF/CR per estimated basal insulin dosing of 45 units/day PLAN FOR INPATIENT GLYCEMIC CONTROL: * Metformin 1gm PO BID * Basal insulin * Lantus 60/75/80 units SQ HS, per scale * Bolus insulin * NovoLog per scale ACHS or Q6hrs while NPO * Goal Range: Low 110 mg/dL - High 140 mg/dL * Correction Factor: 15 mg/dL/unit * Nutritional / Prandial insulin per carb ratio of 1 unit per 4 grams CHO consumed PLAN FOR DISCHARGE: * A1C = 8.7% on 05/09/20 * Goal A1c ~ 7-8% based on age/comorbidities * Would recommend increasing Lantus to 60 units SQ HS and NovoLog to 12 units with all meals at home
[2020-07-28] MEDS: ACETAMINOPHEN 325 MG TAB PO PRN (13:56)
[2020-07-28] MEDS: traMADol HCL 50 MG TABLET PO PRN (18:12)
--- NOTE | 2020-07-28 18:27 | Hospitalist Progress Note ---
Date of Service July 28, 2020 Assessment & Plan (1) Pyelonephritis: initially Suspected left pyelonephritis however CVA angle tenderness has resolved Urine culture shows Pseudomonas resistant to quinolones started on iv meropenem, planning 7 days course blood cultures are negative at this point time with exception of 1 0f 4 showing coagulase-negative staph likely contaminant (2) Weakness: PT/OT confirmes her fitness to return home (3) Peripheral neuropathy: Continues on outpatient venlafaxine and lyrica (4) Sensory ataxia: As above (5) T2DM (type 2 diabetes mellitus): HbA1C 8.7 in April Consult pharmacy for glycemic control with basal bolus insulin (6) Epilepsy: Continue Keppra 500mg PO BID (7) Essential tremor: Easily noted on exam, patient reports mildly worse than usual (8) Hypertension: Continue her usual outpatient regimen with diltiazem,and losartan restart metoprolol 07/22/2020 Will hold HCTZ (9) DVT prophylaxis: Lovenox 40mg SQ BID (increased dose due to morbid obesity) (10) Hip pain: resolved (11) Hyponatremia: sodium did fall ? if antibiotics, will check sodium level on 07/29 Admission and Anticipated Discharge Date Admission Date: July 24, 2020 Subjective Patient continues to be patient while we are here treating her resistant Pseudomonas in her urine that is going to need intravenous antibiotics. today she she says her hip pain has resolved and does not want the consult to ortho pt has a dip in sodium will modestly fluid restrict.labs 07/29 Review of Systems Review of Systems: Mild distress and fatigue Patient has a jaw tremor this is slight no headache, blurry or double vision, no speech or swallowing issues no chest pain, pressure or palpitations no shortness of breath, cough or wheezes no abdominal pain, nausea or vomiting, diarrhea or constipation Previous left-sided posterior abdominal pain is resolved Complains of mild dysuria no back pain, CVA tenderness or radicular pain no bruising, bleeding or rashes no focal signs of weakness or numbness or altered sensation Complains of overall feeling weak no complaints of anxiety or depression.. Musculoskeletal: left hip pain Physical Exam Physical Exam: The patient appeared well nourished and normally developed. Patient is morbidly obese with a BMI of 47 Vital signs as documented. Head exam is normocephalic atraumatic As mentioned jaw tremor is visible Neck is without JVD, thyromegaly, or carotid bruits. Lungs are clear to auscultation, no focal loss of breath sounds Cardiac exam, Rhythm is regular.. No murmurs, rubs or gallops. Abdominal exam reveals normal bowel sounds, soft non tender, no masses No CVA angle tenderness Extremities are trace edematous bilaterally and both pedal pulses are present Neurologic exam is alert and oriented, no focal loss of strength or sensation Skin is without bruises or rashes Psychologically is without concerns for anxiety or depression Results & Data Results & Data ([facility]) Vital Signs (Past 12 Hours) Vital Signs Temp Pulse Resp BP Pulse Ox 07/28/20 15:51 98.6 F 68 18 103/64 94 07/28/20 08:23 97.9 F 72 18 116/74 93 PG Care Time/CCT Total # of Minutes Spent Total Time Spent with Patient: Total time spent is greater than 50% in coordination of care (as documented) at patient's floor/unit and/or counseling patient: Coding Level of Care Code 62109 Subseq Hosp Care Lvl 2 Diagnoses Pyelonephritis N12 Weakness R53.1 Peripheral neuropathy G62.9 Sensory ataxia R27.8 T2DM (type 2 diabetes mellitus) E11.9 Epilepsy G40.909 Essential tremor G25.0 Hypertension I10 DVT prophylaxis Z29.9 Hip pain M25.559 Hyponatremia E87.1
[2020-07-28] MEDS: DOCUSATE SODIUM 100 MG CAP PO SCH (20:47)
[2020-07-28] MEDS: ATORVASTATIN 20 MG TAB PO SCH (20:47)
[2020-07-28] MEDS: INSULIN GLARGINE SOLOSTAR 100 UNITS/ML 3 ML PEN SC SCH (20:54)
[2020-07-29] MEDS: MEROPENEM 500 MG in SYRINGE 0 ML IV SCH ×4 (04:30→21:26)
[2020-07-29 06:32] LABS: Hematocrit (blood only) 36.8 % (37-47); Hemoglobin 11.8 g/dL (12.0-16.0); Mean Corpuscular Hgb Conc 32.1 g/dL (32-36); Mean Corpuscular Volume 84.2 fL (80-100); Mean Platelet Volume 9.7 fL (7.4-10.4); Platelet Count 347 K/uL (130-400); RDW Coefficient of Variation 15.6 % (11.5-14.5); RDW Standard Deviation 48.3 fL (36.4-46.3); Red Blood Count 4.37 M/uL (4.2-5.4); White Blood Count 6.81 K/uL (4.8-10.8)
[2020-07-29 07:14] LABS: Calcium 8.7 mg/dl (8.5-10.1); Creatinine Clr Calc Pharmacy 97.3 ml/min; Est GFR (African American) 104.8 ml/min; Est GFR (Non-African American) 90.4 ml/min; Potassium 3.9 mmol/L (3.5-5.1)
[2020-07-29] MEDS: dilTIAZem HCL 180 MG CAPCR PO SCH (08:38)
[2020-07-29] MEDS: INSULIN ASPART 100 UNITS/ML 3 ML PEN SC SCH ×4 (08:38→21:15)
[2020-07-29] MEDS: CHOLECALCIFEROL 1,000 UNITS 25 MCG TAB PO SCH (08:38)
[2020-07-29] MEDS: levETIRAcetam 500 MG TAB PO SCH ×2 (08:38→20:12)
[2020-07-29] MEDS: metFORMIN HCL 500 MG TAB PO SCH ×2 (08:39→17:40)
[2020-07-29] MEDS: CYANOCOBALAMIN 500 MCG TABLET (VITAMIN B-12) PO SCH (08:39)
[2020-07-29] MEDS: METOPROLOL SUCC 50MG EXT REL TAB PO SCH (08:39)
[2020-07-29] MEDS: MAGNESIUM OXIDE 400 MG TAB PO SCH (08:39)
[2020-07-29] MEDS: ASPIRIN 81 MG ECTAB PO SCH (08:39)
[2020-07-29] MEDS: VENLAFAXINE HCL XR 150 MG CAPXR PO SCH (08:39)
[2020-07-29] MEDS: hydroCHLOROthiazide 25 MG TAB PO SCH (08:40)
[2020-07-29] MEDS: OXYBUTYNIN CHLORIDE 5 MG TAB PO SCH ×2 (08:40→20:12)
[2020-07-29] MEDS: PANTOprazole 40 MG TAB PO SCH (08:40)
[2020-07-29] MEDS: ENOXAPARIN INJ 40 MG/0.4 ML SYR SQ SCH ×2 (08:40→20:12)
[2020-07-29] MEDS: LOSARTAN POTASSIUM 50 MG TAB PO SCH (08:40)
[2020-07-29] MEDS: CLOTRIMAZOLE 1% CR 15 GM TUBE TOP SCH ×3 (08:41→19:52)
[2020-07-29] MEDS: POLYETHYLENE (MIRALAX) 17 GM PACK PO SCH (08:41)
[2020-07-29] MEDS: PREGABALIN 150 MG CAP PO SCH ×2 (08:47→20:12)
--- NOTE | 2020-07-29 11:14 | Hospitalist Progress Note ---
Date of Service July 29, 2020 Assessment & Plan (1) Pyelonephritis: Present on admission, left CVA angle tenderness has since resolved Urine culture shows Pseudomonas resistant to quinolones started on iv meropenem, planning 7 days course (last day today) blood cultures are negative at this point time with exception of 1 0f 4 showing coagulase-negative staph likely contaminant (2) Weakness: PT/OT confirms her fitness to return home (3) Peripheral neuropathy: Continues on outpatient venlafaxine and lyrica (4) Sensory ataxia: As above (5) T2DM (type 2 diabetes mellitus): HbA1C 8.7 in April Consult pharmacy for glycemic control with basal bolus insulin (6) Epilepsy: Continue Keppra 500mg PO BID (7) Essential tremor: Appears resolved, likely exacerbated due to infection (8) Hypertension: Continue her usual outpatient regimen with diltiazem,and losartan restart metoprolol 07/22/2020 HCTZ not restart, does not appear to need this on discharge (9) Hip pain: resolved (10) DVT prophylaxis: Lovenox 40mg SQ BID (increased dose due to morbid obesity) Admission and Anticipated Discharge Date Admission Date: July 24, 2020 Anticipated date of discharge: 07/30/20 Subjective Patient is feeling well. Left CVA tenderness is resolved shortly after admission. No further fevers or chills. Last day of antibiotics is today. Review of Systems Review of Systems: All systems reviewed & are unremarkable except as noted in HPI & below Physical Exam Constitutional: well developed and + morbidly obese; + not well nourished and no acute distress Eyes: + anicteric sclerae; normal pupil size Respiratory: normal respiratory effort, lungs clear to auscultation Cardiovascular: RRR, no murmur, no edema Gastrointestinal (Abdomen): Inspection/Auscultation: abdomen normal to inspection and normal bowel sounds; abdomen not distended Percussion/Palpation: abdomen soft; abdomen nontender, no guarding and abdomen not rigid Musculoskeletal: no cyanosis or clubbing, extremities motor strength 5/5 Skin: no rashes, warm and dry Neurologic: moves all extremities and awake; no focal motor deficits (no lateralizing) and not confused Speech / Cognition: normal speech Motor/Sensory: + sensory deficit (stocking distribution numbness equal b/l feet); no tremor Psychiatric: A+Ox3, euthymic affect Genitourinary: no CVA tenderness Results & Data Results & Data ([facility]) Vital Signs (Past 12 Hours) Vital Signs Temp Pulse Resp BP Pulse Ox 07/29/20 08:19 36.5 C 76 16 132/68 95 PG Care Time/CCT Total # of Minutes Spent Total Time Spent with Patient: Total time spent is greater than 50% in coordination of care (as documented) at patient's floor/unit and/or counseling patient: Coding Level of Care Code 25074 Subseq Hosp Care Lvl 2 Diagnoses Pyelonephritis N12 Weakness R53.1 Peripheral neuropathy G62.9 Sensory ataxia R27.8 T2DM (type 2 diabetes mellitus) E11.9 Epilepsy G40.909 Essential tremor G25.0 Hypertension I10 Hip pain M25.559 DVT prophylaxis Z29.9
[2020-07-29] MEDS: DOCUSATE SODIUM 100 MG CAP PO SCH (20:12)
[2020-07-29] MEDS: ATORVASTATIN 20 MG TAB PO SCH (20:12)
[2020-07-29] MEDS: INSULIN GLARGINE SOLOSTAR 100 UNITS/ML 3 ML PEN SC SCH (21:17)
[2020-07-30] MEDS: MEROPENEM 500 MG in SYRINGE 0 ML IV SCH (03:51)
[2020-07-30] MEDS: CYANOCOBALAMIN 500 MCG TABLET (VITAMIN B-12) PO SCH (08:16)
[2020-07-30] MEDS: ASPIRIN 81 MG ECTAB PO SCH (08:16)
[2020-07-30] MEDS: hydroCHLOROthiazide 25 MG TAB PO SCH (08:16)
[2020-07-30] MEDS: LOSARTAN POTASSIUM 50 MG TAB PO SCH (08:16)
[2020-07-30] MEDS: METOPROLOL SUCC 50MG EXT REL TAB PO SCH (08:16)
[2020-07-30] MEDS: CHOLECALCIFEROL 1,000 UNITS 25 MCG TAB PO SCH (08:16)
[2020-07-30] MEDS: VENLAFAXINE HCL XR 150 MG CAPXR PO SCH (08:16)
[2020-07-30] MEDS: PANTOprazole 40 MG TAB PO SCH (08:17)
[2020-07-30] MEDS: MAGNESIUM OXIDE 400 MG TAB PO SCH (08:17)
[2020-07-30] MEDS: OXYBUTYNIN CHLORIDE 5 MG TAB PO SCH (08:17)
[2020-07-30] MEDS: levETIRAcetam 500 MG TAB PO SCH (08:17)
[2020-07-30] MEDS: ENOXAPARIN INJ 40 MG/0.4 ML SYR SQ SCH (08:17)
[2020-07-30] MEDS: dilTIAZem HCL 180 MG CAPCR PO SCH (08:17)
[2020-07-30] MEDS: metFORMIN HCL 500 MG TAB PO SCH (08:17)
[2020-07-30] MEDS: POLYETHYLENE (MIRALAX) 17 GM PACK PO SCH (08:18)
[2020-07-30] MEDS: CLOTRIMAZOLE 1% CR 15 GM TUBE TOP SCH (08:18)
[2020-07-30] MEDS: PREGABALIN 150 MG CAP PO SCH (08:22)
[2020-07-30] MEDS: INSULIN ASPART 100 UNITS/ML 3 ML PEN SC SCH ×2 (08:49→12:40)
--- NOTE | 2020-07-30 08:52 | Pharmacy Report ---
Pharmacy Glycemic Short Note 2 - Date of Service July 30, 2020 - Glycemic Short BSG Results (Last 24 hours): 07/29/20 07/29/20 07/29/20 12:15 17:13 20:42 POC Glucose 153 H 139 H 108 H 07/30/20 08:05 POC Glucose 116 H OUTPATIENT ANTIDIABETIC REGIMEN: * Metformin 1,000mg PO BID * Lantus 45 units SQ HS * NovoLog 6 unts BF + 12 units Lunch + 10 units HS * A1c = 8.7% on 05/09/20 ASSESSMENT: 07/30 * BSGs well controlled yesterday, ranging 108-153 mg/L * Received 104 units of insulin (75 units of basal) * Basal insulin making up the majority of insulin needs, which is similar to outpatient regimen * Do not anticipate any changes required today * Completed meropenem today * Fasting BSG of 116 mg/dL - continue current basal 07/28 * Blood sugars well controlled over past 48 hours, using 117-124 units of insulin/day * Continue insulin and metformin as ordered * Patient remains inpatient for IV antibiotics 07/23 * BSGs remain poorly controlled, with all BSGs above goal for the past 24+ hours. * Supplemental Lantus dose provided again this morning. Novolog parameters were tightened and Metformin also resumed starting this evening, to improve insulin sensitivity. * Cipro changed to Meropenem today d/t micro C/S. 07/22 * 74 yo T2DM female with slightly sub-adequate degree of outpatient control per A1c * Pt with sustained hyperglycemia secondary to poor outpatient control, illness/infection, and sub-adequate basal insulin dosing last evening * Pt ordered Lantus 20 units last evening but outpatient dosing is 45 units HS. * Will give additional 20 units this AM and then resume 45 units SQ HS this evening * CF/CR per estimated basal insulin dosing of 45 units/day PLAN FOR INPATIENT GLYCEMIC CONTROL: * Metformin 1gm PO BID * Basal insulin * Lantus 75 units SQ HS * Bolus insulin * NovoLog per scale ACHS or Q6hrs while NPO * Goal Range: Low 110 mg/dL - High 140 mg/dL * Correction Factor: 15 mg/dL/unit * Nutritional / Prandial insulin per carb ratio of 1 unit per 4 grams CHO consumed PLAN FOR DISCHARGE: * A1C = 8.7% on 05/09/20 * Goal A1c ~ 7-8% based on age/comorbidities * Would recommend increasing Lantus to 60 units SQ HS and NovoLog to 12 units with all meals at home
--- NOTE | 2020-07-30 10:15 | Discharge Summary ---
Date of Service July 30, 2020 Admission HPI Per Admitting Provider Esthela Kenny is a 74-year-old female who presents to the ER via ALS due to dizziness, reduced appetite with generalized weakness. She reports symptoms started yesterday and progressively getting worse. Having more trouble getting around because of her profound weakness today. Dizziness occurring when standing up. In the ER UA was grossly positive for infection. She does not endorse any specific UTI symptoms. Given her weakness she was not felt safe to return home therefore referred to medicine for admission and ongoing management of UTI and generalized weakness. Admission Exam Per Admitting Provider Constitutional: well developed and + morbidly obese; + not well nourished and no acute distress Eyes: + anicteric sclerae; normal pupil size Respiratory: normal respiratory effort, lungs clear to auscultation Cardiovascular: RRR, no murmur, no edema Gastrointestinal (Abdomen): Inspection/Auscultation: abdomen normal to inspect ion and normal bowel sounds; abdomen not distended Percussion/Palpation: abdomen soft; abdomen nontender, no guarding and abdomen not rigid Musculoskeletal: no cyanosis or clubbing, extremities motor strength 5/5 Neurologic: moves all extremities and awake; no focal motor deficits (no lateralizing) and not confused Speech / Cognition: normal speech Motor/Sensory: + tremor (resting, worse on posturing R > L) and + sensory deficit (stocking distribution numbness equal b/l feet) Psychiatric: A+Ox3, euthymic affect Genitourinary: + CVA tenderness (left) Principal Diagnosis Pyelonephritis Discharge Exam Constitutional well developed and + morbidly obese; + not well nourished and no acute distress Eyes + anicteric sclerae; normal pupil size Respiratory normal respiratory effort, lungs clear to auscultation Cardiovascular RRR, no murmur, no edema Gastrointestinal (Abdomen) Inspection/Auscultation: abdomen normal to inspection and normal bowel sounds; abdomen not distended Percussion/Palpation: abdomen soft; abdomen nontender, no guarding and abdomen not rigid Musculoskeletal no cyanosis or clubbing, extremities motor strength 5/5 Skin no rashes, warm and dry Neurologic moves all extremities and awake; no focal motor deficits (no lateralizing) and not confused Speech / Cognition: normal speech Motor/Sensory: + sensory deficit (stocking distribution numbness equal b/l feet); no tremor Psychiatric A+Ox3, euthymic affect Genitourinary no CVA tenderness Discharge Data Allergies Allergy/AdvReac Type Severity Reaction Status Date / Time fentanyl Allergy Intermediate HIGH BLOOD Verified 07/21/20 12:32 PRESSURE, SKIN FLUSHED Cephalosporins Allergy Mild RASH Verified 07/21/20 12:32 Penicillins Allergy Mild RASH Verified 07/21/20 12:32 Sulfa (Sulfonamide Allergy Mild ? Verified 07/21/20 12:32 Antibiotics) bee venom protein (honey bee) Allergy Unknown . Verified 07/21/20 12:32 cephalexin Allergy Unknown Rash Verified 07/21/20 12:32 Iodinated Contrast Media Allergy Unknown PASS OUT, Verified 07/21/20 12:32 VOMITING ketorolac Allergy Unknown Unknown Verified 07/21/20 12:32 meperidine Allergy Unknown . Verified 07/21/20 12:32 aspartame Allergy Verified 07/21/20 12:32 stevioside [From Stevia] Allergy Verified 07/21/20 12:32 sucralose Allergy Verified 07/21/20 12:32 codeine AdvReac Mild ALTERED Verified 07/21/20 12:32 MENTAL STATUS morphine AdvReac Unknown Nausea Verified 07/21/20 12:32 Consultations 07/21/20 13:02 ED Decision to Admit Stat 07/26/20 07:01 Consult Orthopedic Surgery Routine Hospital Course (1) Pyelonephritis: Esthela Kenny is a 74 year old female admitted to [facility] from July 21 - July 30, 2020 due to dizziness, reduced appetite with generalized weakness. Urine analysis was grossly positive for infection. Given left flank tenderness you were diagnosed with pyelonephritis (kidney infection). Urine culture grew multi-resistant pseudomonas. Therefore treated as inpatient with intravenous meropenem for 7 days. Antibiotics have now finished and no further antibiotics required on discharge. Type 2 diabetes - Given current insulin requirement and HbA1C 8.7 in April recommend increasing Lantus from 45 -> 60 units SQ HS. Recommended following up with primary care physician in next 1-2 weeks as follow up. Hypertension - HCTZ discontinued as she doesn't appear to need this for her blood pressure and suspect contributing towards some hyponatremia. (2) Weakness: (3) Peripheral neuropathy: (4) Sensory ataxia: (5) T2DM (type 2 diabetes mellitus): (6) Epilepsy: (7) Essential tremor: (8) Hypertension: (9) Hip pain: (10) DVT prophylaxis: Total Time Total Time Spent Total Time Spent (In Minutes): 35 Total Time Includes: Examination of the Patient, Discharge Planning and Medication Reconciliation Discharge Plan Discharge Items Patient Disposition: Home - Home Health Services Reason For Visit: PYELONEPHRITIS Discharge Diagnosis: Pyelonephritis Activity: Resume your previous activity Non-emergency contact: Primary Care Provider Call non-emergency contact if: your symptoms worsen Follow-up/Referrals: Margarito Al [Primary Care Provider] - 08/09/20 3:00 pm (Margarito Al will do a home visit with patient. Time is tentatively scheduled and subject to change.) Diet: Carb Consistent or DM2 and Heart Healthy Addtl Attending Provider Instructions: You were admitted to [facility] from July 21 - July 30, 2020 due to dizziness, reduced appetite with generalized weakness. Urine analysis was grossly positive for infection. Given left flank tenderness you were diagnosed with pyelonephritis (kidney infection). Urine culture grew multi-resistant pseudomonas. Therefore you were treated as an inpatient with intravenous meropenem for 7 days. Antibiotics have now finished and no further antibiotics required on discharge. Given current insulin requirement and HbA1C 8.7 in April recommend increasing insulin dosing as noted below. Please contact your primary care provider for fol low up in the next 1-2 weeks for continued management of this. Kind regards, Dr Deondre Almanza Pending Studies at Discharge: No Stand-Alone Forms: My [facility], Smoking Cessation Medications and DC Order Prescriptions: Continued pregabalin 150 mg capsule 150 mg PO BID 30 Days Qty: 60 RF: 2 atorvastatin 20 mg tablet 20 mg PO HS Qty: 30 RF: 0 cetirizine 10 mg tablet 10 mg PO DAILY PRN (Reason: Allergy Symptoms) RF: 0 cyanocobalamin (vitamin B-12) 1,000 mcg capsule 1,000 mcg PO DAILY Qty: 30 RF: 0 diltiazem HCl 180 mg capsule,extended release 24hr 180 mg PO QAM RF: 0 docusate sodium 100 mg capsule 200 mg PO HS RF: 0 hydrochlorothiazide 25 mg tablet 25 mg PO QAM RF: 0 losartan 50 mg tablet 50 mg PO QAM RF: 0 magnesium oxide 400 mg (241.3 mg magnesium) tablet 400 mg PO QAM RF: 0 venlafaxine 150 mg capsule,extended release 24hr 150 mg PO QAM RF: 0 pantoprazole 40 mg tablet,delayed release (DR/EC) 40 mg PO QAM RF: 0 nitroglycerin 0.4 mg tablet, sublingual 0.4 mg SL DIRECTED PRN (Reason: Chest Pain) RF: 0 metoprolol succinate 50 mg tablet extended release 24 hr 50 mg PO QAM RF: 0 metformin 500 mg tablet 500 mg PO .COMPLEX Qty: 120 RF: 5 polyethylene glycol 3350 [Miralax] 17 gram Powder In Packet 17 g PO QAM RF: 0 acetaminophen [Tylenol Extra Strength] 500 mg Tablet 500 mg PO Q6H PRN (Reason: Pain) RF: 0 clotrimazole [Lotrimin AF (clotrimazole)] 1 % Cream 1 applic TOPICAL DIRECTED RF: 0 aspirin [Aspirin Low Dose] 81 mg Tablet,Delayed Release (Dr/Ec) 81 mg PO QAM RF: 0 cholecalciferol (vitamin D3) [Vitamin D3] 50 mcg (2,000 unit) Capsule 2,000 unit PO QAM RF: 0 oxybutynin chloride 5 mg tablet 5 mg PO BID RF: 0 levetiracetam 500 mg tablet 500 mg PO BID RF: 0 Changed Lantus U-100 Insulin 100 unit/mL solution 60 unit SUBCUT HS Qty: 0 RF: 0 insulin aspart U-100 [Novolog Flexpen U-100 Insulin] 100 unit/mL (3 mL) insulin pen See Rx Instructions .ROUTE .COMPLEX Qty: 15 RF: 0 Discharge Orders: Discharge Order (Routine); Ordered 07/30/20 Ordered By: Deondre Pierce/Other Patient Handouts: Diabetes and Heart Disease, Diabetes: Caring for Your Body Admission Data Admit Date/Time: 07/21/20 14:22 Attending Provider: Deondre Almanza Admit Provider: Deondre Almanza Primary Care Provider: Margarito Al Other Interventions: Discharge Summary Assessment (RN) Last Done: 07/30/20 10:43 Coding Level of Care Code D/C Day Management >30 mins Diagnoses Pyelonephritis N12 Weakness R53.1 Peripheral neuropathy G62.9 Sensory ataxia R27.8 T2DM (type 2 diabetes mellitus) E11.9 Epilepsy G40.909 Essential tremor G25.0 Hypertension I10 Hip pain M25.559 DVT prophylaxis Z29.9
== END 2020-07-30 13:18 | disposition home health service (06) | DRG 690 ==
LOC: 3W 11:12 → ED 11:12 → SUATTDRO 14:22 → 3W 14:59 → SUATTDRO 07-24 09:09

== ENCOUNTER 2020-09-21 04:07 | Inpatient (IN) ==
[2020-09-21] MEDS ORDERED: ACETAMINOPHEN 1,000 MG/100 ML VIAL IV STA (04:20)
--- NOTE | 2020-09-21 04:29 | Emergency Department Note ---
History of Present Illness General Chief complaint: Fall Stated complaint: FALL/HIP PAIN W/ SHORTENING AND ROTATION Time Seen by Provider: 09/21/20 04:12 Source: patient and EMS Mode of arrival: EMS Limitations: no limitations History of Present Illness This patient is a 75-year-old female who presents to the emergency department via EMS for a fall and left hip pain. Patient states that she got up to go to the bathroom and fell in the bathroom. She is not sure exactly how she fell. She hit her head and hurt her left hip. She rates her pain a 9/10. She has been unable to walk since the fall. Home Medications Medication Instructions Recorded Confirmed Type atorvastatin 20 mg tablet 20 mg PO HS #30 tab 02/09/19 09/21/20 History cetirizine 10 mg tablet 10 mg PO DAILY PRN tab 02/09/19 09/21/20 History cyanocobalamin (vitamin B-12) 1,000 mcg PO DAILY #30 cap 02/09/19 09/21/20 History 1,000 mcg capsule diltiazem HCl 180 mg 180 mg PO QAM cap 02/09/19 09/21/20 History capsule,extended release 24 hr docusate sodium 100 mg capsule 200 mg PO HS cap 02/09/19 09/21/20 History hydrochlorothiazide 25 mg tablet 25 mg PO QAM tab 02/09/19 09/21/20 History losartan 50 mg tablet 50 mg PO QAM tab 02/09/19 09/21/20 History magnesium oxide 400 mg (241.3 mg 400 mg PO QAM tab 02/09/19 09/21/20 History magnesium) tablet metoprolol succinate 50 mg 50 mg PO QAM tab 02/09/19 09/21/20 History tablet,extended release 24 hr nitroglycerin 0.4 mg sublingual 0.4 mg SL DIRECTED PRN tab 02/09/19 09/21/20 History tablet pantoprazole 40 mg tablet,delayed 40 mg PO QAM tab 02/09/19 09/21/20 History release venlafaxine 150 mg 150 mg PO QAM cap 02/09/19 09/21/20 History capsule,extended release 24 hr acetaminophen 500 mg tablet 500 mg PO Q6H PRN 03/01/19 09/21/20 History (Tylenol Extra Strength) clotrimazole 1 % topical cream 1 applic TOPICAL DIRECTED 03/01/19 09/21/20 History (Lotrimin AF (clotrimazole)) polyethylene glycol 3350 17 gram 17 g PO QAM 03/01/19 09/21/20 History oral powder packet (Miralax) aspirin 81 mg tablet,delayed 81 mg PO QAM 11/14/19 09/21/20 History release (Aspirin Low Dose) cholecalciferol (vitamin D3) 50 2,000 unit PO QAM 11/14/19 09/21/20 History mcg (2,000 unit) capsule (Vitamin D3) oxybutynin chloride 5 mg tablet 5 mg PO BID 11/14/19 09/21/20 History pregabalin 150 mg capsule 150 mg PO BID 30 Days #60 cap 12/04/19 09/21/20 Rx levetiracetam 500 mg tablet 500 mg PO BID 02/24/20 09/21/20 History metformin 500 mg tablet 500 mg PO .COMPLEX #120 tab 05/09/20 09/21/20 Rx insulin aspart U-100 100 unit/mL See Rx Instructions .ROUTE 07/30/20 09/21/20 Rx (3 mL) subcutaneous pen (Novolog .COMPLEX #15 ml Flexpen U-100 Insulin aspart) insulin glargine 100 unit/mL 60 unit SUBCUT HS #0 ml 07/30/20 09/21/20 Rx subcutaneous solution (Lantus U-100 Insulin) Allergies Allergy/AdvReac Type Severity Reaction Status Date / Time fentanyl Allergy Intermediate HIGH BLOOD Verified 09/21/20 09:35 PRESSURE, SKIN FLUSHED Cephalosporins Allergy Mild RASH Verified 09/21/20 09:35 Penicillins Allergy Mild RASH Verified 09/21/20 09:35 Sulfa (Sulfonamide Allergy Mild ? Verified 09/21/20 09:35 Antibiotics) bee venom protein (honey bee) Allergy Unknown . Verified 09/21/20 09:35 cephalexin Allergy Unknown Rash Verified 09/21/20 09:35 Iodinated Contrast Media Allergy Unknown PASS OUT, Verified 09/21/20 09:35 VOMITING ketorolac Allergy Unknown Unknown Verified 09/21/20 09:35 meperidine Allergy Unknown . Verified 09/21/20 09:35 aspartame Allergy Verified 09/21/20 09:35 stevioside [From Stevia] Allergy Verified 07/31/21 09:35 sucralose Allergy Verified 09/21/20 09:35 codeine AdvReac Mild ALTERED Verified 09/21/20 09:35 MENTAL STATUS morphine AdvReac Unknown Nausea Verified 09/21/20 09:35 Past Med/Surg History Medical History HANNAH (acute kidney injury) Anesthesia in both legs Diabetic peripheral neuropathy Dyslipidemia Epilepsy Essential tremor Hypertension Hypoxic Loss of memory Obesity Peripheral neuropathy Sensory ataxia T2DM (type 2 diabetes mellitus) Tremor Vitamin B12 deficiency Vitamin D deficiency Surgical History Hx of cerebral aneurysm repair S/P adenoidectomy S/P cholecystectomy S/P hysterectomy S/P tonsillectomy S/P umbilical hernia repair, follow-up exam Status post tubal ligation Family History Mother Cancer Father Coronary heart disease Social History Smoking Status: Never smoker Hx Alcohol Use: No Hx Substance Use: No Preferred Language: Belarusian Communication Ability: Effective Cnc Operator Required: No Beliefs That Will Affect Care: None marital status: / Current Living Situation: Family Feels Safe at Home: Yes Assistive Devices: Walker Review of Systems A total of 10 systems reviewed and were otherwise negative Physical Exam VITALS: Vitals are noted on the nurse's note and reviewed by myself. GENERAL: This is a 75-year-old female, tearful, lying supine in bed. SKIN: Erythematous maculopapular rash noted to bilateral hips. HEAD: Normocephalic atraumatic. EARS: External auditory canals clear, tympanic membranes pearly layne without marilyn thema or effusion bilaterally. No hemotympanum. EYES: Pupils equal round and reactive to light and accommodation. Extraocular movements intact. MOUTH: Mucous membranes dry. NECK: Supple without nuchal rigidity. Cervical spine is nontender. HEART: Regular rate and rhythm without murmurs gallops or rubs. LUNGS: Clear to auscultation bilaterally without wheezes, rales or rhonchi. ABDOMEN: Positive bowel sounds x 4. Soft, nontender to palpation. MUSCULOSKELETAL: No obvious deformity noted. There is tenderness to palpation of the left lateral and anterior hip. NEURO: Patient was alert and oriented to person place and time. Distal sensation is intact. Course Administered Medications Aspirin (Aspirin 81 Mg Ectab) 81 mg PO QAM [facility] Stop: 10/21/20 10:59 Last Admin: 09/22/20 08:57 Dose: 81 mg Documented by: [id number] Admin: 09/21/20 11:59 Dose: 81 mg Documented by: [id number] Atorvastatin Calcium (Atorvastatin 20 Mg Tab) 20 mg PO [facility] Stop: 10/21/20 20:59 Last Admin: 09/22/20 20:27 Dose: 20 mg Documented by: [id number] Admin: 09/21/20 20:32 Dose: 20 mg Documented by: [id number] Cyanocobalamin (Cyanocobalamin 500 Mcg Tablet (Vitamin B-12)) 1,000 mcg PO DA ELLY [facility] Stop: 10/21/20 10:59 Last Admin: 09/22/20 08:57 Dose: 1,000 mcg Documented by: [id number] Admin: 09/21/20 11:16 Dose: 1,000 mcg Documented by: [id number] Diltiazem HCl (Diltiazem Hcl 180 Mg Capcr) 180 mg PO [facility] Stop: 10/21/20 10:59 Last Admin: 09/22/20 08:57 Dose: 180 mg Documented by: [id number] Admin: 09/21/20 11:16 Dose: 180 mg Documented by: [id number] Docusate Sodium (Docusate Sodium 100 Mg Cap) 200 mg PO [facility] Stop: 10/21/20 20:59 Last Admin: 09/22/20 20:27 Dose: 200 mg Documented by: [id number] Admin: 09/21/20 20:31 Dose: 200 mg Documented by: [id number] Enoxaparin Sodium (Enoxaparin Inj 40 Mg/0.4 Ml Syr) 40 mg SQ Q12H [facility] Stop: 10/21/20 10:59 Last Admin: 09/22/20 22:13 Dose: 40 mg Documented by: [id number] Admin: 09/22/20 11:47 Dose: 40 mg Documented by: [id number] Admin: 09/21/20 22:06 Dose: 40 mg Documented by: [id number] Admin: 09/21/20 11:16 Dose: 40 mg Documented by: [id number] Hydrochlorothiazide (Hydrochlorothiazide 25 Mg Tab) 25 mg PO QAM [facility] Stop: 10/21/20 10:59 Last Admin: 09/22/20 08:56 Dose: 25 mg Documented by: [id number] Admin: 09/21/20 11:16 Dose: 25 mg Documented by: [id number] Insulin Aspart (Insulin Aspart 100 Units/Ml 3 Ml Pen) 0 units SC ACHS [facility] Stop: 10/22/20 12:59 Last Admin: 09/22/20 21:21 Dose: Not Given Documented by: [id number] Cosigned by: [id number] Admin: 09/22/20 18:01 Dose: 7 units Documented by: [id number] Cosigned by: [id number] Admin: 09/22/20 13:01 Dose: 11 units Documented by: [id number] Cosigned by: [id number] Insulin Glargine (Insulin Glargine Solostar 100 Units/Ml 3 Ml Pen) 66 units SQ HS [facility] Stop: 10/22/20 20:59 Last Admin: 09/22/20 21:21 Dose: 66 units Documented by: [id number] Cosigned by: [id number] Levetiracetam (Levetiracetam 500 Mg Tab) 500 mg PO BID [facility] Stop: 10/21/20 08:59 Last Admin: 09/22/20 20:27 Dose: 500 mg Documented by: [id number] Admin: 09/22/20 08:56 Dose: 500 mg Documented by: [id number] Admin: 09/21/20 20:32 Dose: 500 mg Documented by: [id number] Admin: 09/21/20 11:16 Dose: 500 mg Documented by: [id number] Losartan Potassium (Losartan Potassium 50 Mg Tab) [facility] Stop: 10/21/20 10:59 Last Admin: 09/22/20 08:56 Dose: 50 mg Documented by: [id number] Admin: 09/21/20 11:16 Dose: 50 mg Documented by: [id number] Magnesium Oxide (Magnesium Oxide 400 Mg Tab) 400 mg PO QAM [facility] Stop: 10/21/20 10:59 Last Admin: 09/22/20 08:56 Dose: 400 mg Documented by: [id number] Admin: 09/21/20 11:16 Dose: 400 mg Documented by: [id number] Metformin HCl (Metformin Hcl 500 Mg Tab) 1,000 mg PO BIDM [facility] Stop: 10/21/20 16:59 Last Admin: 09/22/20 17:39 Dose: 1,000 mg Documented by: [id number] Admin: 09/22/20 08:57 Dose: 1,000 mg Documented by: [id number] Admin: 09/21/20 17:42 Dose: 1,000 mg Documented by: [id number] Metoprolol Succinate (Metoprolol Succ 50mg Ext Rel Tab) 50 mg PO [facility] Stop: 10/21/20 10:59 Last Admin: 09/22/20 08:57 Dose: 50 mg Documented by: [id number] Admin: 09/21/20 11:16 Dose: 50 mg Documented by: [id number] Oxybutynin Chloride (Oxybutynin Chloride 5 Mg Tab) 5 mg PO BID [facility] Stop: 10/21/20 08:59 Last Admin: 09/22/20 20:27 Dose: 5 mg Documented by: [id number] Admin: 09/22/20 08:56 Dose: 5 mg Documented by: [id number] Admin: 09/21/20 20:31 Dose: 5 mg Documented by: [id number] Admin: 09/21/20 11:16 Dose: 5 mg Documented by: [id number] Oxycodone HCl (Oxycodone Hcl Ir 5 Mg Tab (Immediate Release)) 5 mg PO Q6H PRN PRN Reason: Moderate Pain (4,5,6) on NRS Stop: 10/05/20 10:26 Last Admin: 09/22/20 09:35 Dose: 5 mg Documented by: [id number] Admin: 09/21/20 17:53 Dose: 5 mg Documented by: [id number] Oxycodone HCl (Oxycodone Hcl Ir 5 Mg Tab (Immediate Release)) 10 mg PO Q6H PRN PRN Reason: Severe Pain (7,8,9,10) on NRS Stop: 10/05/20 10:26 Last Admin: 09/21/20 11:22 Dose: 10 mg Documented by: [id number] Pantoprazole Sodium (Pantoprazole 40 Mg Tab) 40 mg PO [facility] Stop: 10/21/20 10:59 Last Admin: 09/22/20 08:57 Dose: 40 mg Documented by: [id number] Admin: 09/21/20 11:59 Dose: 40 mg Documented by: [id number] Polyethylene Glycol (Polyethylene (Miralax) 17 Gm Pack) 17 gm PO QAM [facility] Stop: 10/21/20 10:59 Last Admin: 09/22/20 08:57 Dose: 17 gm Documented by: [id number] Admin: 09/21/20 11:16 Dose: 17 gm Documented by: [id number] Pregabalin (Pregabalin 150 Mg Cap) 150 mg PO BID [facility] Stop: 10/21/20 10:59 Last Admin: 09/22/20 20:32 Dose: 150 mg Documented by: [id number] Admin: 09/22/20 09:35 Dose: 150 mg Documented by: [id number] Admin: 09/21/20 20:31 Dose: 150 mg Documented by: [id number] Admin: 09/21/20 11:21 Dose: 150 mg Documented by: [id number] Venlafaxine HCl (Venlafaxine Hcl Xr 150 Mg Capxr) 150 mg PO QAM [facility] Stop: 10/21/20 10:59 Last Admin: 09/22/20 08:56 Dose: 150 mg Documented by: [id number] Admin: 09/21/20 11:15 Dose: 150 mg Documented by: [id number] Vitamin D (Cholecalciferol 1,000 Units 25 Mcg Tab) 2,000 units PO QAM [facility] Stop: 10/21/20 10:59 Last Admin: 09/22/20 08:57 Dose: 2,000 units Documented by: [id number] Admin: 09/21/20 11:59 Dose: 2,000 units Documented by: [id number] Zinc Acetate/Diphenhydramine (Diphenhydramine 2%/Zinc 0.1% Cream 28gm Tube) 1 appln EXT Q12 PRN PRN Reason: Itching Stop: 10/21/20 23:16 Last Admin: 09/22/20 20:28 Dose: 1 appln Documented by: [id number] Admin: 09/22/20 00:11 Dose: 1 appln Documented by: [id number] Discontinued Medications Acetaminophen (Ofirmev) 1,000 mg in 100 mls @ 400 mls/hr IV NOW STA Stop: 09/21/20 04:34 Last Infusion: 09/21/20 05:45 Dose: 0 mls/hr Documented by: [id number] Admin: 09/21/20 04:53 Dose: 400 mls/hr Documented by: [id number] Meropenem 500 mg/ Syringe 10 mls @ 2 mls/min IV Q8H [facility]; Protocol Stop: 09/23/20 05:44 Last Admin: 09/22/20 05:52 Dose: 2 mls/min Documented by: [id number] Admin: 09/21/20 22:06 Dose: 2 mls/min Documented by: [id number] Admin: 09/21/20 14:30 Dose: 2 mls/min Documented by: [id number] Admin: 09/21/20 06:17 Dose: 2 mls/min Documented by: [id number] Ibuprofen (Ibuprofen 600 Mg Tab) 600 mg PO NOW STA Stop: 09/21/20 07:55 Last Admin: 09/21/20 07:59 Dose: 600 mg Documented by: [id number] Insulin Aspart (Insulin Aspart 100 Units/Ml 3 Ml Pen) 0 units SQ ACHS [facility] Stop: 10/21/20 11:29 Last Admin: 09/22/20 12:51 Dose: Not Given Documented by: [id number] Admin: 09/22/20 08:59 Dose: 1 units Documented by: [id number] Cosigned by: [id number] Admin: 09/21/20 20:48 Dose: 2 units Documented by: [id number] Cosigned by: [id number] Admin: 09/21/20 17:52 Dose: 2 units Documented by: [id number] Cosigned by: [id number] Admin: 09/21/20 13:01 Dose: 1 units Documented by: [id number] Cosigned by: [id number] Insulin Glargine (Insulin Glargine Solostar 100 Units/Ml 3 Ml Pen) 60 units SQ HS [facility] Stop: 10/21/20 20:59 Last Admin: 09/21/20 20:47 Dose: 60 units Documented by: [id number] Cosigned by: [id number] Morphine Sulfate (Morphine Sulfate 4 Mg/Ml 1 Ml Carp\Vial) 4 mg IV NOW STA Stop: 09/21/20 07:23 Last Admin: 09/21/20 08:33 Dose: Not Given Documented by: [id number] Ondansetron HCl (Ondansetron Inj 2 Mg/Ml 2 Ml Vial) 4 mg IV NOW STA Stop: 09/21/20 07:24 Last Admin: 09/21/20 08:33 Dose: Not Given Documented by: [id number] Medical Decision Making Differential Diagnosis Infection, dehydration, metabolic abnormality, hypo/hyperglycemia, electrolyte disturbance, anemia, hypoxia, cardiac sources, intracerebral event, toxicologic, neurologic, as well as other pathologies. Home Medications Current Medication List: was personally reviewed by me Laboratory Data Attestation: I reviewed the patient's lab results. Result diagrams: 09/21/20 04:47 09/21/20 04:47 Lab Results 09/21/20 09/21/20 09/21/20 Range/Units 04:30 04:47 04:47 WBC 7.54 (4.8-10.8) K/uL RBC 4.42 (4.2-5.4) M/uL Hgb 11.8 L (12.0-16.0) g/dL Hct 36.8 L (37-47) % MCV 83.3 (80-100) fL MCH 26.7 (25-34) pg MCHC 32.1 (32-36) g/dL RDW Std Deviation 50.1 H (36.4-46.3) fL RDW Coeff of Nic 16.4 H (11.5-14.5) % Plt Count 291 (130-400) K/uL MPV 9.3 (7.4-10.4) fL Immature Gran % (Auto) 0.7 % Neut % (Auto) 62.6 % Lymph % (Auto) 22.4 % Anderson % (Auto) 10.1 % Eos % (Auto) 3.8 % Baso % (Auto) 0.4 % Neut # (Auto) 4.72 (1.4-6.5) K/uL Lymph # (Auto) 1.69 (1.2-3.4) K/uL Anderson # (Auto) 0.76 H (0.11-0.59) K/uL Eos # (Auto) 0.29 (0-0.5) K/uL Baso # (Auto) 0.03 (0-0.2) K/uL Immature Gran # (Auto) 0.05 H (0.00-0.02) K/uL PT (9.0-12.0) Seconds INR (0.9-1.1) APTT (21.0-31.0) Seconds PTT Ratio Sodium (136-145) mmol/L Potassium (3.5-5.1) mmol/L Chloride (98-107) mmol/L Carbon Dioxide (21-32) mmol/L Anion Gap (3-11) BUN (7-18) mg/dl Creatinine (0.6-1.2) mg/dl Est Cr Clr Drug Dosing ml/min Est GFR ( Amer) ml/min Est GFR (Non-Af Amer) ml/min BUN/Creatinine Ratio (10-20) Glucose (70-99) mg/dl Calcium (8.5-10.1) mg/dl Total Bilirubin (0.2-1) mg/dl AST (15-37) U/L ALT (12-78) U/L Alkaline Phosphatase (45-117) U/L Total Protein (6.4-8.2) gm/dl Albumin (3.4-5.0) gm/dl Globulin (2.5-4.0) gm/dl Albumin/Globulin Ratio (0.9-2) Urine Color Yellow Urine Appearance Cloudy A (Clear) Urine pH 6.5 (4.5-7.5) Ur Specific Oran 1.012 (1.000-1.030) Urine Protein Negative (Negative) Urine Glucose (UA) Negative (Negative) Urine Ketones Negative (Negative) Urine Blood Trace H (Negative) Urine Nitrite Positive A (Negative) Urine Bilirubin Negative (Negative) Urine Urobilinogen Negative (Negative) Ur Leukocyte Esterase 2+ H (Negative) Urine WBC (Auto) >30 H (0-5) /hpf Urine RBC (Auto) 0-4 (0-4) /hpf U Hyaline Cast (Auto) 1-5 (0-5) /lpf U Epithel Cells (Auto) 0-5 (0-5) /lpf Urine Bacteria (Auto) 2+ H (Negative) COVID-19 Eval Order SARS-CoV-2 (PCR) (Negative) Blood Type O Positive Antibody Screen NEGATIVE 09/21/20 09/21/20 09/21/20 Range/Units 04:47 04:47 05:55 WBC (4.8-10.8) K/uL RBC (4.2-5.4) M/uL Hgb (12.0-16.0) g/dL Hct (37-47) % MCV (80-100) fL MCH (25-34) pg MCHC (32-36) g/dL RDW Std Deviation (36.4-46.3) fL RDW Coeff of Nic (11.5-14.5) % Plt Count (130-400) K/uL MPV (7.4-10.4) fL Immature Gran % (Auto) % Neut % (Auto) % Lymph % (Auto) % Anderson % (Auto) % Eos % (Auto) % Baso % (Auto) % Neut # (Auto) (1.4-6.5) K/uL Lymph # (Auto) (1.2-3.4) K/uL Anderson # (Auto) (0.11-0.59) K/uL Eos # (Auto) (0-0.5) K/uL Baso # (Auto) (0-0.2) K/uL Immature Gran # (Auto) (0.00-0.02) K/uL PT 9.8 (9.0-12.0) Seconds INR 1.0 (0.9-1.1) APTT 24.5 (21.0-31.0) Seconds PTT Ratio 0.9 Sodium 137 (136-145) mmol/L Potassium 3.6 (3.5-5.1) mmol/L Chloride 102 (98-107) mmol/L Carbon Dioxide 30 (21-32) mmol/L Anion Gap 5.0 (3-11) BUN 11 (7-18) mg/dl Creatinine 0.68 (0.6-1.2) mg/dl Est Cr Clr Drug Dosing 88.4 ml/min Est GFR ( Amer) 99.9 ml/min Est GFR (Non-Af Amer) 86.2 ml/min BUN/Creatinine Ratio 16.3 (10-20) Glucose 141 H (70-99) mg/dl Calcium 8.9 (8.5-10.1) mg/dl Total Bilirubin 0.4 (0.2-1) mg/dl AST 16 (15-37) U/L ALT 17 (12-78) U/L Alkaline Phosphatase 104 (45-117) U/L Total Protein 6.9 (6.4-8.2) gm/dl Albumin 3.1 L (3.4-5.0) gm/dl Globulin 3.8 (2.5-4.0) gm/dl Albumin/Globulin Ratio 0.8 L (0.9-2) Urine Color Urine Appearance (Clear) Urine pH (4.5-7.5) Ur Specific Oran (1.000-1.030) Urine Protein (Negative) Urine Glucose (UA) (Negative) Urine Ketones (Negative) Urine Blood (Negative) Urine Nitrite (Negative) Urine Bilirubin (Negative) Urine Urobilinogen (Negative) Ur Leukocyte Esterase (Negative) Urine WBC (Auto) (0-5) /hpf Urine RBC (Auto) (0-4) /hpf U Hyaline Cast (Auto) (0-5) /lpf U Epithel Cells (Auto) (0-5) /lpf Urine Bacteria (Auto) (Negative) COVID-19 Eval Order Covid19 at [facility] SARS-CoV-2 (PCR) (Negative) Blood Type Antibody Screen 09/21/20 Range/Units 05:55 WBC (4.8-10.8) K/uL RBC (4.2-5.4) M/uL Hgb (12.0-16.0) g/dL Hct (37-47) % MCV (80-100) fL MCH (25-34) pg MCHC (32-36) g/dL RDW Std Deviation (36.4-46.3) fL RDW Coeff of Nic (11.5-14.5) % Plt Count (130-400) K/uL MPV (7.4-10.4) fL Immature Gran % (Auto) % Neut % (Auto) % Lymph % (Auto) % Anderson % (Auto) % Eos % (Auto) % Baso % (Auto) % Neut # (Auto) (1.4-6.5) K/uL Lymph # (Auto) (1.2-3.4) K/uL Anderson # (Auto) (0.11-0.59) K/uL Eos # (Auto) (0-0.5) K/uL Baso # (Auto) (0-0.2) K/uL Immature Gran # (Auto) (0.00-0.02) K/uL PT (9.0-12.0) Seconds INR (0.9-1.1) APTT (21.0-31.0) Seconds PTT Ratio Sodium (136-145) mmol/L Potassium (3.5-5.1) mmol/L Chloride (98-107) mmol/L Carbon Dioxide (21-32) mmol/L Anion Gap (3-11) BUN (7-18) mg/dl Creatinine (0.6-1.2) mg/dl Est Cr Clr Drug Dosing ml/min Est GFR ( Amer) ml/min Est GFR (Non-Af Amer) ml/min BUN/Creatinine Ratio (10-20) Glucose (70-99) mg/dl Calcium (8.5-10.1) mg/dl Total Bilirubin (0.2-1) mg/dl AST (15-37) U/L ALT (12-78) U/L Alkaline Phosphatase (45-117) U/L Total Protein (6.4-8.2) gm/dl Albumin (3.4-5.0) gm/dl Globulin (2.5-4.0) gm/dl Albumin/Globulin Ratio (0.9-2) Urine Color Urine Appearance (Clear) Urine pH (4.5-7.5) Ur Specific Oran (1.000-1.030) Urine Protein (Negative) Urine Glucose (UA) (Negative) Urine Ketones (Negative) Urine Blood (Negative) Urine Nitrite (Negative) Urine Bilirubin (Negative) Urine Urobilinogen (Negative) Ur Leukocyte Esterase (Negative) Urine WBC (Auto) (0-5) /hpf Urine RBC (Auto) (0-4) /hpf U Hyaline Cast (Auto) (0-5) /lpf U Epithel Cells (Auto) (0-5) /lpf Urine Bacteria (Auto) (Negative) COVID-19 Eval Order SARS-CoV-2 (PCR) NEGATIVE (Negative) Blood Type Antibody Screen Imaging Data Attestation: I personally reviewed and interpreted this imaging study as follows: Radiologist's Impression: CT SCAN OF THE BRAIN WITHOUT IV CONTRAST IMPRESSION: 1. There is no hemorrhage, mass effect, or evidence of acute territorial ischemia by CT criteria. 2. Chronic and postoperative changes as above. This is similar to previous CT SCAN OF THE CERVICAL SPINE IMPRESSION: 1. There is no evidence of fracture or subluxation involving the cervical spine. 2. Osteopenia and spondylotic change as above. XR chest 1V portable IMPRESSION: 1. Cardiomegaly without acute process. 2. Large hiatal hernia. CT SCAN OF THE LUMBAR SPINE WITHOUT IV CONTRAST IMPRESSION: There is no evidence of fracture or malalignment involving the lumbar spine. CT SCAN OF THE LEFT HIP WITHOUT IV CONTRAST IMPRESSION: There is no CT evidence of left hip fracture as clinically queried. ECG Data Attestation: I personally reviewed and interpreted this ECG as follows: Indication: + weakness Rate (beats per minute): 70 Rhythm: + normal sinus ECG Intervals/blocks: + First degree AV block and + Left bundle branch block Change: no significant change MDM Narrative Continuous environmental monitoring specialist: Order was placed for continuous environmental monitoring specialist. Patient was placed on the environmental monitoring specialist. Patient was noted to be in normal sinus rhythm at an initial rate of 80 bpm. The patient is a 75-year-old female who presents today for evaluation of a fall. Patient is unsure what caused her to fall. She struck her head and her left hip. No fractures were found. No other acute traumatic findings were found on imaging. Patient was found to have a UTI. Her most recent urine culture grew out resistant Pseudomonas. Based on her most recent culture, patient was given a dose of meropenem IV. Unfortunately, patient is unable to ambulate with assistance. I do feel she will need further evaluation in the hospital for treatment. The case was discussed with the on-call [facility] hospitalist, who agreed to evaluate the patient for further care. Impression & Plan Urinary tract infection, Fall, Left hip pain Discharge Plan Visit Data Chief Complaint: Fall Stated Complaint: FALL/HIP PAIN W/ SHORTENING AND ROTATION ED Provider: Ashwini Nolasco ED Midlevel Provider: Bella Hedrick Discharge Problem: Urinary tract infection, Fall, Left hip pain Patient Disposition: Admitted As Inpatient Discharge Instructions Interventions: ED Discharge Assessment Last Done: 09/21/20 10:04
[2020-09-21 04:56] LABS: Appearance Urine Cloudy (Clear); Bacteria Urine Automated 2+ (Negative); Bilirubin Urine Negative (Negative); Blood Urine Trace (Negative); Color Urine Yellow; Epithelial Cell Urine Auto 0-5 /lpf (0-5); Glucose Urine UA Negative (Negative); Ketones Urine Negative (Negative); Leukocyte Esterase Urine 2+ (Negative); Nitrite Urine Positive (Negative); Protein Urine Negative (Negative); RBC Urine Automated 0-4 /hpf (0-4); Specific Gravity Urine 1.012 (1.000-1.030); Urobilinogen Urine Negative (Negative); WBC Urine Automated >30 /hpf (0-5); pH Urine 6.5 (4.5-7.5)
[2020-09-21 04:57] LABS: Basophils # (auto) 0.03 K/uL (0-0.2); Basophils % (auto) 0.4 %; Eosinophils # (auto) 0.29 K/uL (0-0.5); Eosinophils % (auto) 3.8 %; Hematocrit (blood only) 36.8 % (37-47); Hemoglobin 11.8 g/dL (12.0-16.0); Immature Granulocytes # (auto) 0.05 K/uL (0.00-0.02); Immature Granulocytes % (auto) 0.7 %; Lymphocytes # (auto) 1.69 K/uL (1.2-3.4); Lymphocytes % (auto) 22.4 %; Mean Corpuscular Hemoglobin 26.7 pg (25-34); Mean Corpuscular Hgb Conc 32.1 g/dL (32-36); Mean Corpuscular Volume 83.3 fL (80-100); Mean Platelet Volume 9.3 fL (7.4-10.4); Monocytes # (auto) 0.76 K/uL (0.11-0.59); Monocytes % (auto) 10.1 %; Neutrophils # (auto) 4.72 K/uL (1.4-6.5); Neutrophils % (auto) 62.6 %; Platelet Count 291 K/uL (130-400); RDW Coefficient of Variation 16.4 % (11.5-14.5); RDW Standard Deviation 50.1 fL (36.4-46.3); Red Blood Count 4.42 M/uL (4.2-5.4); White Blood Count 7.54 K/uL (4.8-10.8)
[2020-09-21 05:11] LABS: Partial Thromboplastin Ratio 0.9; Partial Thromboplastin Time 24.5 Seconds (21.0-31.0); Prothrombin Time 9.8 Seconds (9.0-12.0)
[2020-09-21 05:14] LABS: Albumin Level 3.1 gm/dl (3.4-5.0); BUN Creatinine Ratio 16.3 (10-20); Calcium 8.9 mg/dl (8.5-10.1); Creatinine Clr Calc Pharmacy 88.4 ml/min; Est GFR (African American) 99.9 ml/min; Est GFR (Non-African American) 86.2 ml/min; Potassium 3.6 mmol/L (3.5-5.1)
[2020-09-21 05:17] LABS: Albumin Globulin Ratio 0.8 (0.9-2); Bilirubin,Total 0.4 mg/dl (0.2-1); Globulin 3.8 gm/dl (2.5-4.0); Total Protein 6.9 gm/dl (6.4-8.2)
[2020-09-21] MEDS ORDERED: MEROPENEM CONSULT ACITVE PRN (05:37)
[2020-09-21] MEDS: MEROPENEM 500 MG in SYRINGE 0 ML IV SCH ×3 (06:17→22:06)
--- NOTE | 2020-09-21 06:59 | CT Scan Report ---
CT SCAN OF THE BRAIN WITHOUT IV CONTRAST CLINICAL HISTORY: Fall. Headache. COMPARISON STUDY: CT of the brain dated 02/24/2020. TECHNIQUE: Unenhanced axial CT scan of the brain is performed from the vertex to the skull base. A do se lowering technique was utilized adhering to the principles of ALARA. FINDINGS: Brain parenchyma: Foci of left frontal and left temporal encephalomalacia are consistent remote insul ts. There are age-related involutional changes noting mild subcortical and periventricular microangi opathic change. There is no hemorrhage, mass effect, or evidence of acute territorial ischemia by CT criteria. Hinds-white matter differentiation is preserved. No extra-axial fluid collection is seen. Ventricles, sulci, cisterns: Prominent secondary to involutional change. Intracranial vasculature: There is atherosclerotic calcification of the cavernous carotid and vertebr al arteries. Clips/coils are noted in the left temporal fossa. Calvarium: The skeletal structures are osteopenic. There is postoperative change from left-sided cran iotomy. No depressed calvarial fracture is identified. Sinuses and mastoids: The visualized paranasal sinuses are clear. There is trace right mastoid effusi on. The left mastoid air cells are well pneumatized. Orbits: The bony orbits are grossly intact. There are bilateral ocular lens implants IMPRESSION: 1. There is no hemorrhage, mass effect, or evidence of acute territorial ischemia by CT criteria. 2. Chronic and postoperative changes as above. This is similar to previous ACT 112: Negative or not required by law. Electronically signed by: Huan Kaur M.D. 09/21/2020 6:58 AM
--- NOTE | 2020-09-21 07:02 | XRay Report ---
LEFT KNEE 3 VIEWS CLINICAL HISTORY: Fall. Left knee pain. FINDINGS: AP, crosstable lateral, and sunrise views of the left knee are obtained. No prior studies a re available for comparison at the time of dictation. The skeletal structures are osteopenic. No frac ture is seen. There is mild tricompartmental degenerative joint space narrowing. No joint effusion is identified. Small patellar enthesophytes are observed. There is atherosclerotic calcification of the popliteal artery. IMPRESSION: No acute bony abnormality is identified. Electronically signed by: Huan Kaur M.D. 09/21/2020 7:01 AM
--- NOTE | 2020-09-21 07:08 | CT Scan Report ---
CT SCAN OF THE CERVICAL SPINE CLINICAL HISTORY: Trauma. Fall. COMPARISON STUDY: CT of the cervical spine dated 04/06/2019. TECHNIQUE: CT scan of the cervical spine is performed from the skull base to the upper thoracic spine . Images are reviewed in the axial, sagittal, and coronal planes. IV contrast was not administered fo r this examination. A dose lowering technique was utilized adhering to the principles of ALARA. CT DOSE: 1041.47 mGy.cm FINDINGS: Skeletal structures: The skeletal structures are osteopenic. There is no evidence of fracture or subl uxation involving the cervical spine. Vertebral body height and alignment are maintained. Small anter ior osteophytes are seen throughout. The odontoid process and lateral masses are intact. The atlantoa xial articulation is preserved noting productive degenerative change. The spinous processes appear in tact. Intervertebral discs: Mild disc space narrowing is noted in the lower cervical region. Central canal: Posterior disc osteophyte complexes at C5-C6 and C6-C7 may contribute to mild acquired compromise of the central canal. Soft tissues: The prevertebral and paraspinous soft tissues are within normal limits. There is athero sclerotic calcification of the carotid bulbs. Calvarium: The visualized calvarium at the skull base appears intact. Brain parenchyma: Partially visualized brain parenchyma at the skull base is within normal limits. Sinuses and mastoids: The visualized paranasal sinuses are clear. There is a small right mastoid effu brock. Lung apices: Clear as visualized. IMPRESSION: 1. There is no evidence of fracture or subluxation involving the cervical spine. 2. Osteopenia and spondylotic change as above. ACT 112: Negative or not required by law. Electronically signed by: Huan Kaur M.D. 09/21/2020 7:07 AM
[2020-09-21] MEDS ORDERED: MoRPHine SULFATE 4 MG/ML 1 ML CARP\\VIAL IV STA (07:22)
[2020-09-21] MEDS ORDERED: ONDANSETRON INJ 2 MG/ML 2 ML VIAL IV STA (07:23)
--- NOTE | 2020-09-21 07:26 | CT Scan Report ---
CT SCAN OF THE LEFT HIP WITHOUT IV CONTRAST CLINICAL HISTORY: Fall with left hip pain. COMPARISON STUDY: Pelvic CT dated 11/15/2019. Radiographs of the left hip dated 09/21/2020. TECHNIQUE: CT scan of the left hip is performed from the bony pelvis to the femoral shaft. Images ar e reviewed in the axial, sagittal, and coronal planes. IV contrast was not administered for this exam ination. A dose lowering technique was utilized adhering to the principles of ALARA. FINDINGS: The skeletal structures are osteopenic. No fracture is identified involving the left proxim al femur. The visualized left hemipelvis appears intact. Mild degenerative joint space narrowing is s een in the left hip. There is no evidence of joint effusion. No lytic or blastic lesion is seen. Ther e is generalized atrophy of the regional musculature. No hematoma is identified. The bladder is decom pressed around a Sanchez catheter. The uterus is surgically absent. No free fluid is identified in the pelvis. There is no left pelvic sidewall or left inguinal adenopathy. Diverticulosis is noted in the partially imaged left colon. IMPRESSION: There is no CT evidence of left hip fracture as clinically queried. ACT 112: Negative or not required by law. Electronically signed by: Huan Kaur M.D. 09/21/2020 7:25 AM
--- NOTE | 2020-09-21 07:37 | CT Scan Report ---
CT SCAN OF THE LUMBAR SPINE WITHOUT IV CONTRAST CLINICAL HISTORY: Fall. Low back pain. COMPARISON STUDY: Abdominal CT dated 11/15/2019. TECHNIQUE: CT scan of the lumbar spine is performed from the lower thoracic spine to the sacrum. Elsi ges are reviewed in the axial, sagittal, and coronal planes. IV contrast was not administered for thi s examination. A dose lowering technique was utilized adhering to the principles of ALARA. CT DOSE: 1638.87 mGy.cm FINDINGS: The skeletal structures are osteopenic. There is no evidence of fracture or subluxation inv olving the lumbar spine. Vertebral body height and alignment are maintained. Small anterior and later al marginal osteophytes are seen throughout. The transverse and spinous processes appear intact. No l ytic or blastic lesion is seen. There is mild multilevel degenerative disc space narrowing. Posterior disc bulges are noted at L4-L5 and L5-S1. Mild facet arthropathy is noted in the lower lumbar region . The visualized sacrum and bony pelvis appear intact. There is fatty atrophy of the paraspinous musc ulature. There is advanced atherosclerotic calcification of the abdominal aorta which is normal in ca liber. Cholecystectomy clips are noted. No retroperitoneal lymphadenopathy is identified. IMPRESSION: There is no evidence of fracture or malalignment involving the lumbar spine. ACT 112: Negative or not required by law. Electronically signed by: Huan Kaur M.D. 09/21/2020 7:35 AM
--- NOTE | 2020-09-21 07:53 | Electrocardiogram Report ---
Test Reason : Blood Pressure : / mmHG Vent. Rate : 070 BPM Atrial Rate : 070 BPM P-R Int : 232 ms QRS Dur : 148 ms QT Int : 458 ms P-R-T Axes : 039 -05 058 degrees QTc Int : 494 ms Sinus rhythm with 1st degree A-V block Left bundle branch block Abnormal ECG When compared with ECG of 21-JUL-2020 11:17, [place] interval has increased Confirmed by Zhou Jackson ([id number]) on 09/21/2020 7:53:12 AM Referred By: REFERRED SELF Confirmed By:Zhou Jackson
[2020-09-21] MEDS ORDERED: IBUPROFEN 600 MG TAB PO STA (07:54)
--- NOTE | 2020-09-21 08:39 | History & Physical Report ---
Date of Service September 21, 2020 Assessment & Plan (1) Ambulatory dysfunction: Plan: Physical therapy and Occupational Therapy consults -Evaluate for subacute rehab versus SNF versus home discharge (2) Pseudomonas urinary tract infection: Plan: History of previous Pseudomonas UTI with multiple resistance patterns -Continue meropenem at the present time until sensitivities are avai lable (3) Hip pain: Plan: Traumatic contusion -Tylenol oxycodone as needed (4) Weakness: Plan: Chronic in nature (5) Morbid obesity with BMI of 50.0-59.9, adult: Plan: Continue atorvastatin 20 mg p.o. nightly (6) Hx of cerebral aneurysm repair: Plan: Continue venlafaxine 150 mg extended release (7) Diabetes mellitus type 2 with neurological manifestations: Plan: Continue Metformin Continue subcutaneous insulin Continue pregabalin 150 mg twice daily (8) Epilepsy: Plan: Continue Keppra 500 mg twice daily (9) Hypertension: Plan: Metoprolol 50 mg XL Losartan 50 mg every morning Diltiazem 180 mg extended release (10) Angina at rest: Plan: Sublingual nitroglycerin as needed (11) Heart murmur on physical examination: Plan: Patient reports she has been told she has a heart murmur -Echocardiogram rule out severe aortic stenosis as cause of fall -Patient denies prodromal symptoms I do not believe that this is high in the differential History of Present Illness Chief Complaint: Fall, ambulatory dysfunction, UTI Primary Care Provider: Margarito Al Patient is a 75-year-old female who lives in a home who was getting up to go to the bathroom and lost her balance falling backwards. She denies chest pain shortness of breath or dizziness. She is afebrile. She had some subjective dizziness in the emergency department when they attempted to ambulate her. She is having 10 out of 10 pain in the left hip and lower back area. The pain started when she fell backwards striking that portion of her body against the ground. There is no numbness or tingling in the arms or legs she is globally weak. Previously she had been advised to have a short stay in a subacute rehab we discussed possibility that today she does not want to go to rehab in any circumstances. Allergies Allergy/AdvReac Type Severity Reaction Status Date / Time fentanyl Allergy Intermediate HIGH BLOOD Verified 08/28/20 13:38 PRESSURE, SKIN FLUSHED Cephalosporins Allergy Mild RASH Verified 08/28/20 13:38 Penicillins Allergy Mild RASH Verified 08/28/20 13:38 Sulfa (Sulfonamide Allergy Mild ? Verified 08/28/20 13:38 Antibiotics) bee venom protein (honey bee) Allergy Unknown . Verified 08/28/20 13:38 cephalexin Allergy Unknown Rash Verified 08/28/20 13:38 Iodinated Contrast Media Allergy Unknown PASS OUT, Verified 08/28/20 13:38 VOMITING ketorolac Allergy Unknown Unknown Verified 08/28/20 13:38 meperidine Allergy Unknown . Verified 08/28/20 13:38 aspartame Allergy Verified 08/28/20 13:38 stevioside [From Stevia] Allergy Verified 08/28/20 13:38 sucralose Allergy Verified 08/28/20 13:38 codeine AdvReac Mild ALTERED Verified 08/28/20 13:38 MENTAL STATUS morphine AdvReac Unknown Nausea Verified 08/28/20 13:38 Home Medications Medication Instructions Recorded Confirmed Type atorvastatin 20 mg tablet 20 mg PO HS #30 tab 02/09/19 08/28/20 History cetirizine 10 mg tablet 10 mg PO DAILY PRN tab 02/09/19 08/28/20 History cyanocobalamin (vitamin B-12) 1,000 mcg PO DAILY #30 cap 02/09/19 08/28/20 History 1,000 mcg capsule diltiazem HCl 180 mg 180 mg PO QAM cap 02/09/19 08/28/20 History capsule,extended release 24 hr docusate sodium 100 mg capsule 200 mg PO HS cap 02/09/19 08/28/20 History hydrochlorothiazide 25 mg tablet 25 mg PO QAM tab 02/09/19 08/28/20 History losartan 50 mg tablet 50 mg PO QAM tab 02/09/19 08/28/20 History magnesium oxide 400 mg (241.3 mg 400 mg PO QAM tab 02/09/19 08/28/20 History magnesium) tablet metoprolol succinate 50 mg 50 mg PO QAM tab 02/09/19 08/28/20 History tablet,extended release 24 hr nitroglycerin 0.4 mg sublingual 0.4 mg SL DIRECTED PRN tab 02/09/19 08/28/20 History tablet pantoprazole 40 mg tablet,delayed 40 mg PO QAM tab 02/09/19 08/28/20 History release venlafaxine 150 mg 150 mg PO QAM cap 02/09/19 08/28/20 History capsule,extended release 24 hr acetaminophen 500 mg tablet 500 mg PO Q6H PRN 03/01/19 08/28/20 History (Tylenol Extra Strength) clotrimazole 1 % topical cream 1 applic TOPICAL DIRECTED 03/01/19 08/28/20 History (Lotrimin AF (clotrimazole)) polyethylene glycol 3350 17 gram 17 g PO QAM 03/01/19 08/28/20 History oral powder packet (Miralax) aspirin 81 mg tablet,delayed 81 mg PO QAM 11/14/19 08/28/20 History release (Aspirin Low Dose) cholecalciferol (vitamin D3) 50 2,000 unit PO QAM 11/14/19 08/28/20 History mcg (2,000 unit) capsule (Vitamin D3) oxybutynin chloride 5 mg tablet 5 mg PO BID 11/14/19 08/28/20 History pregabalin 150 mg capsule 150 mg PO BID 30 Days #60 cap 12/04/19 08/28/20 Rx levetiracetam 500 mg tablet 500 mg PO BID 02/24/20 08/28/20 History metformin 500 mg tablet 500 mg PO .COMPLEX #120 tab 05/09/20 08/28/20 Rx insulin aspart U-100 100 unit/mL See Rx Instructions .ROUTE 07/30/20 08/28/20 Rx (3 mL) subcutaneous pen (Novolog .COMPLEX #15 ml Flexpen U-100 Insulin aspart) insulin glargine 100 unit/mL 60 unit SUBCUT HS #0 ml 07/30/20 08/28/20 Rx subcutaneous solution (Lantus U-100 Insulin) Past Med/Surg History Medical History HANNAH (acute kidney injury) Anesthesia in both legs Diabetic peripheral neuropathy Dyslipidemia Epilepsy Essential tremor Hypertension Hypoxic Loss of memory Obesity Peripheral neuropathy Sensory ataxia T2DM (type 2 diabetes mellitus) Tremor Vitamin B12 deficiency Vitamin D deficiency Surgical History Hx of cerebral aneurysm repair S/P adenoidectomy S/P cholecystectomy S/P hysterectomy S/P tonsillectomy S/P umbilical hernia repair, follow-up exam Status post tubal ligation Family History Mother Cancer Father Coronary heart disease Social History Smoking Status: Never smoker Hx Alcohol Use: Yes Alcohol type: wine Hx Substance Use: No Preferred Language: Belarusian Communication Ability: Effective Instructor [employer] Required: No Beliefs That Will Affect Care: None marital status: / Current Living Situation: Alone Feels Safe at Home: Yes Assistive Devices: Glasses and Walker Review of Systems Review of Systems: All systems reviewed & are unremarkable except as noted in HPI & below Physical Exam Physical Exam: General: Obese elderly female who appears her stated age I have reviewed the recorded vital signs Neurological: Moves all 4 extremities, Psychological: GCS 15 following complex commands Eyes: Pupils are equal, round and reactive to light, anicteric sclera. Symmetrical lids. HENT: Oropharynx Clear, moist Mucous Membranes. Neck: Supple. Symmetric. trachea midline. No thyromegaly. No carotid bruit bilaterally Cardiovascular: Normal peripheral perfusion. Distal pulses and capillary refill intact. No JVD. 3 out of 6 systolic ejection murmur Respiratory: Respirations are non-labored, no accessory muscle use. Breath sounds are equal. Gastrointestinal: Soft. Non-distended. Lymphatic: No cervical lymphadenopathy. Musculoskeletal: No deformity. No clubbing nor cyanosis. Tenderness to palpation along entirety of left hip and left lower back no point tenderness. Results & Data Results & Data ([facility]) Vital Signs (Past 12 Hours) Vital Signs Temp Pulse Pulse Resp BP BP Pulse Ox 09/21/20 07:19 73 16 151/71 H 97 09/21/20 06:30 73 18 156/95 H 94 09/21/20 06:00 79 18 169/78 H 95 09/21/20 05:30 87 13 137/99 96 09/21/20 04:45 94 09/21/20 04:30 36.5 C 80 18 156/70 H 88 L 09/21/20 04:13 156/70 H 92 Laboratory Results 09/21/20 09/21/20 09/21/20 Range/Units 05:55 05:55 04:47 WBC (4.8-10.8) K/uL RBC (4.2-5.4) M/uL Hgb (12.0-16.0) g/dL Hct (37-47) % MCV (80-100) fL MCH (25-34) pg MCHC (32-36) g/dL RDW Std Deviation (36.4-46.3) fL RDW Coeff of Nic (11.5-14.5) % Plt Count (130-400) K/uL MPV (7.4-10.4) fL Immature Gran % (Auto) % Neut % (Auto) % Lymph % (Auto) % [place] % (Auto) % Eos % (Auto) % Baso % (Auto) % Neut # (Auto) (1.4-6.5) K/uL Lymph # (Auto) (1.2-3.4) K/uL [place] # (Auto) (0.11-0.59) K/uL Eos # (Auto) (0-0.5) K/uL Baso # (Auto) (0-0.2) K/uL Immature Gran # (Auto) (0.00-0.02) K/uL PT (9.0-12.0) Seconds INR (0.9-1.1) APTT (21.0-31.0) Seconds PTT Ratio Sodium 137 (136-145) mmol/L Potassium 3.6 (3.5-5.1) mmol/L Chloride 102 (98-107) mmol/L Carbon Dioxide 30 (21-32) mmol/L Anion Gap 5.0 (3-11) BUN 11 (7-18) mg/dl Creatinine 0.68 (0.6-1.2) mg/dl Est Cr Clr Drug Dosing 88.4 ml/min Est GFR ( Amer) 99.9 ml/min Est GFR (Non-Af Amer) 86.2 ml/min BUN/Creatinine Ratio 16.3 (10-20) Glucose 141 H (70-99) mg/dl Calcium 8.9 (8.5-10.1) mg/dl Total Bilirubin 0.4 (0.2-1) mg/dl AST 16 (15-37) U/L ALT 17 (12-78) U/L Alkaline Phosphatase 104 (45-117) U/L Total Protein 6.9 (6.4-8.2) gm/dl Albumin 3.1 L (3.4-5.0) gm/dl Globulin 3.8 (2.5-4.0) gm/dl Albumin/Globulin Ratio 0.8 L (0.9-2) Urine Color Urine Appearance (Clear) Urine pH (4.5-7.5) Ur Specific [place] (1.000-1.030) Urine Protein (Negative) Urine Glucose (UA) (Negative) Urine Ketones (Negative) Urine Blood (Negative) Urine Nitrite (Negative) Urine Bilirubin (Negative) Urine Urobilinogen (Negative) Ur Leukocyte Esterase (Negative) Urine WBC (Auto) (0-5) /hpf Urine RBC (Auto) (0-4) /hpf U Hyaline Cast (Auto) (0-5) /lpf U Epithel Cells (Auto) (0-5) /lpf Urine Bacteria (Auto) (Negative) COVID-19 Eval Order Covid19 at [facility] SARS-CoV-2 (PCR) NEGATIVE (Negative) Blood Type Antibody Screen 09/21/20 09/21/20 09/21/20 Range/Units 04:47 04:47 04:47 WBC 7.54 (4.8-10.8) K/uL RBC 4.42 (4.2-5.4) M/uL Hgb 11.8 L (12.0-16.0) g/dL Hct 36.8 L (37-47) % MCV 83.3 (80-100) fL MCH 26.7 (25-34) pg MCHC 32.1 (32-36) g/dL RDW Std Deviation 50.1 H (36.4-46.3) fL RDW Coeff of Nic 16.4 H (11.5-14.5) % Plt Count 291 (130-400) K/uL MPV 9.3 (7.4-10.4) fL Immature Gran % (Auto) 0.7 % Neut % (Auto) 62.6 % Lymph % (Auto) 22.4 % [place] % (Auto) 10.1 % Eos % (Auto) 3.8 % Baso % (Auto) 0.4 % Neut # (Auto) 4.72 (1.4-6.5) K/uL Lymph # (Auto) 1.69 (1.2-3.4) K/uL [place] # (Auto) 0.76 H (0.11-0.59) K/uL Eos # (Auto) 0.29 (0-0.5) K/uL Baso # (Auto) 0.03 (0-0.2) K/uL Immature Gran # (Auto) 0.05 H (0.00-0.02) K/uL PT 9.8 (9.0-12.0) Seconds INR 1.0 (0.9-1.1) APTT 24.5 (21.0-31.0) Seconds PTT Ratio 0.9 Sodium (136-145) mmol/L Potassium (3.5-5.1) mmol/L Chloride (98-107) mmol/L Carbon Dioxide (21-32) mmol/L Anion Gap (3-11) BUN (7-18) mg/dl Creatinine (0.6-1.2) mg/dl Est Cr Clr Drug Dosing ml/min Est GFR ( Amer) ml/min Est GFR (Non-Af Amer) ml/min BUN/Creatinine Ratio (10-20) Glucose (70-99) mg/dl Calcium (8.5-10.1) mg/dl Total Bilirubin (0.2-1) mg/dl AST (15-37) U/L ALT (12-78) U/L Alkaline Phosphatase (45-117) U/L Total Protein (6.4-8.2) gm/dl Albumin (3.4-5.0) gm/dl Globulin (2.5-4.0) gm/dl Albumin/Globulin Ratio (0.9-2) Urine Color Urine Appearance (Clear) Urine pH (4.5-7.5) Ur Specific [place] (1.000-1.030) Urine Protein (Negative) Urine Glucose (UA) (Negative) Urine Ketones (Negative) Urine Blood (Negative) Urine Nitrite (Negative) Urine Bilirubin (Negative) Urine Urobilinogen (Negative) Ur Leukocyte Esterase (Negative) Urine WBC (Auto) (0-5) /hpf Urine RBC (Auto) (0-4) /hpf U Hyaline Cast (Auto) (0-5) /lpf U Epithel Cells (Auto) (0-5) /lpf Urine Bacteria (Auto) (Negative) COVID-19 Eval Order SARS-CoV-2 (PCR) (Negative) Blood Type O Positive Antibody Screen NEGATIVE 09/21/20 Range/Units 04:30 WBC (4.8-10.8) K/uL RBC (4.2-5.4) M/uL Hgb (12.0-16.0) g/dL Hct (37-47) % MCV (80-100) fL MCH (25-34) pg MCHC (32-36) g/dL RDW Std Deviation (36.4-46.3) fL RDW Coeff of Nic (11.5-14.5) % Plt Count (130-400) K/uL MPV (7.4-10.4) fL Immature Gran % (Auto) % Neut % (Auto) % Lymph % (Auto) % [place] % (Auto) % Eos % (Auto) % Baso % (Auto) % Neut # (Auto) (1.4-6.5) K/uL Lymph # (Auto) (1.2-3.4) K/uL [place] # (Auto) (0.11-0.59) K/uL Eos # (Auto) (0-0.5) K/uL Baso # (Auto) (0-0.2) K/uL Immature Gran # (Auto) (0.00-0.02) K/uL PT (9.0-12.0) Seconds INR (0.9-1.1) APTT (21.0-31.0) Seconds PTT Ratio Sodium (136-145) mmol/L Potassium (3.5-5.1) mmol/L Chloride (98-107) mmol/L Carbon Dioxide (21-32) mmol/L Anion Gap (3-11) BUN (7-18) mg/dl Creatinine (0.6-1.2) mg/dl Est Cr Clr Drug Dosing ml/min Est GFR ( Amer) ml/min Est GFR (Non-Af Amer) ml/min BUN/Creatinine Ratio (10-20) Glucose (70-99) mg/dl Calcium (8.5-10.1) mg/dl Total Bilirubin (0.2-1) mg/dl AST (15-37) U/L ALT (12-78) U/L Alkaline Phosphatase (45-117) U/L Total Protein (6.4-8.2) gm/dl Albumin (3.4-5.0) gm/dl Globulin (2.5-4.0) gm/dl Albumin/Globulin Ratio (0.9-2) Urine Color Yellow Urine Appearance Cloudy A (Clear) Urine pH 6.5 (4.5-7.5) Ur Specific [place] 1.012 (1.000-1.030) Urine Protein Negative (Negative) Urine Glucose (UA) Negative (Negative) Urine Ketones Negative (Negative) Urine Blood Trace H (Negative) Urine Nitrite Positive A (Negative) Urine Bilirubin Negative (Negative) Urine Urobilinogen Negative (Negative) Ur Leukocyte Esterase 2+ H (Negative) Urine WBC (Auto) >30 H (0-5) /hpf Urine RBC (Auto) 0-4 (0-4) /hpf U Hyaline Cast (Auto) 1-5 (0-5) /lpf U Epithel Cells (Auto) 0-5 (0-5) /lpf Urine Bacteria (Auto) 2+ H (Negative) COVID-19 Eval Order SARS-CoV-2 (PCR) (Negative) Blood Type Antibody Screen Diagnostic Findings CT SCAN OF THE LUMBAR SPINE WITHOUT IV CONTRAST CLINICAL HISTORY: Fall. Low back pain. COMPARISON STUDY: Abdominal CT dated 11/15/2019. TECHNIQUE: CT scan of the lumbar spine is performed from the lower thoracic spine to the sacrum. Images are reviewed in the axial, sagittal, and coronal planes. IV contrast was not administered for this examination. A dose lowering technique was utilized adhering to the principles of ALARA. CT DOSE: 1638.87 mGy.cm FINDINGS: The skeletal structures are osteopenic. There is no evidence of fracture or subluxation involving the lumbar spine. Vertebral body height and alignment are maintained. Small anterior and lateral marginal osteophytes are seen throughout. The transverse and spinous processes appear intact. No lytic or blastic lesion is seen. There is mild multilevel degenerative disc space narrowing. Posterior disc bulges are noted at L4-L5 and L5-S1. Mild facet arthropathy is noted in the lower lumbar region. The visualized sacrum and bony pelvis appear intact. There is fatty atrophy of the paraspinous musculature. Th ere is advanced atherosclerotic calcification of the abdominal aorta which is normal in caliber. Cholecystectomy clips are noted. No retroperitoneal lymphadenopathy is identified. IMPRESSION: There is no evidence of fracture or malalignment involving the lumbar spine. CT SCAN OF THE LEFT HIP WITHOUT IV CONTRAST CLINICAL HISTORY: Fall with left hip pain. COMPARISON STUDY: Pelvic CT dated 11/15/2019. Radiographs of the left hip dated 09/21/2020. TECHNIQUE: CT scan of the left hip is performed from the bony pelvis to the femoral shaft. Images are reviewed in the axial, sagittal, and coronal planes. IV contrast was not administered for this examination. A dose lowering technique was utilized adhering to the principles of ALARA. FINDINGS: The skeletal structures are osteopenic. No fracture is identified involving the left proximal femur. The visualized left hemipelvis appears intact. Mild degenerative joint space narrowing is seen in the left hip. There is no evidence of joint effusion. No lytic or blastic lesion is seen. There is generalized atrophy of the regional musculature. No hematoma is identified. The bladder is decompressed around a Sanchez catheter. The uterus is surgically absent. No free fluid is identified in the pelvis. There is no left pelvic sidewall or left inguinal adenopathy. Diverticulosis is noted in the partially imaged left colon. IMPRESSION: There is no CT evidence of left hip fracture as clinically queried. CT SCAN OF THE BRAIN WITHOUT IV CONTRAST CLINICAL HISTORY: Fall. Headache. COMPARISON STUDY: CT of the brain dated 02/24/2020. TECHNIQUE: Unenhanced axial CT scan of the brain is performed from the vertex to the skull base. A dose lowering technique was utilized adhering to the princ ipllance of TOVA. FINDINGS: Brain parenchyma: Foci of left frontal and left temporal encephalomalacia are consistent remote insults. There are age-related involutional changes noting mild subcortical and periventricular microangiopathic change. There is no hemorrhage, mass effect, or evidence of acute territorial ischemia by CT criteria. Hinds-white matter differentiation is preserved. No extra-axial fluid collection is seen. Ventricles, sulci, cisterns: Prominent secondary to involutional change. Intracranial vasculature: There is atherosclerotic calcification of the cavernous carotid and vertebral arteries. Clips/coils are noted in the left temporal fossa. Calvarium: The skeletal structures are osteopenic. There is postoperative change from left-sided craniotomy. No depressed calvarial fracture is identified. Sinuses and mastoids: The visualized paranasal sinuses are clear. There is trace right mastoid effusion. The left mastoid air cells are well pneumatized. Orbits: The bony orbits are grossly intact. There are bilateral ocular lens implants IMPRESSION: 1. There is no hemorrhage, mass effect, or evidence of acute territorial ischemia by CT criteria. 2. Chronic and postoperative changes as above. This is similar to previous Medications Administered Medication List Meropenem 500 mg/ Syringe 10 mls @ 2 mls/min IV Q8H [facility]; Protocol Stop: 09/23/20 05:44 Last Admin: 09/21/20 06:17 Dose: 2 mls/min Documented by: [id number] Discontinued Medications Acetaminophen (Ofirmev) 1,000 mg in 100 mls @ 400 mls/hr IV NOW STA Stop: 09/21/20 04:34 Last Infusion: 09/21/20 05:45 Dose: 0 mls/hr Documented by: [id number] Admin: 09/21/20 04:53 Dose: 400 mls/hr Documented by: [id number] Ibuprofen (Ibuprofen 600 Mg Tab) 600 mg PO NOW STA Stop: 09/21/20 07:55 Last Admin: 09/21/20 07:59 Dose: 600 mg Documented by: [id number] ECG Additional Comments: Abnormal EKG: Left bundle branch block sinus rhythm with first-degree AV block DE interval is increased when compared to previous EKG Code Status & VTE Plan Code Status Discussed CODE STATUS, patient would want CPR undertaken in event of cardiac arrest however she does not want advanced airway techniques nor intubation in event of respiratory insufficiency. This point the patient will be DNI in event of cardiac arrest only VTE Prophylaxis Plan VTE Prophylaxis will be ordered: Yes PG Care Time/CCT Total # of Minutes Spent Total Time Spent with Patient: Total time spent is greater than 50% in coordination of care (as documented) at patient's floor/unit and/or counseling patient: Coding Level of Care Code INT OBSERVATION CARE 70M LVL 3 Diagnoses Hip pain M25.559 Weakness R53.1 Morbid obesity with BMI of 50.0-59.9, adult E66.01; Z68.43 Pseudomonas urinary tract infection N39.0; B96.5 Hx of cerebral aneurysm repair Z98.890; Z86.79 Diabetes mellitus type 2 with neurological manifestations E11.49 Epilepsy G40.909 Hypertension I10 Ambulatory dysfunction R26.2 Angina at rest I20.8 Heart murmur on physical examination R01.1
--- NOTE | 2020-09-21 09:08 | XRay Report ---
XR hip LT min 2V HISTORY: 75 years-old Female left hip pain, fall acute left hip pain status post fall COMPARISON: [CT of same day TECHNIQUE: The left hip FINDINGS: Mild osteoarthritis. Demineralized appearance of the bones. No acute fracture, dislocation or avascul ar necrosis. Unremarkable soft tissues. IMPRESSION: No acute fracture or dislocation. ACT 112: Negative or not required by law. The above report was generated using voice recognition software. It may contain grammatical, syntax o r spelling errors. Electronically signed by: Jeremiah Guadarrama M.D. 09/21/2020 9:07 AM
--- NOTE | 2020-09-21 09:10 | XRay Report ---
XR chest 1V portable HISTORY: 75 years-old Female fall . Acute chest trauma status post fall COMPARISON: 07/21/2020 TECHNIQUE: AP view of the chest FINDINGS: Moderate cardiomegaly. Large hiatal hernia. Mild chronic interstitial coarsening. No pneumothorax, pl eural effusion, airspace consolidation or overt pulmonary edema. Degenerative changes of the shoulder s and spine. IMPRESSION: 1. Cardiomegaly without acute process. 2. Large hiatal hernia. ACT 112: Negative or not required by law. The above report was generated using voice recognition software. It may contain grammatical, syntax o r spelling errors. Electronically signed by: Jeremiah Guadarrama M.D. 09/21/2020 9:09 AM
[2020-09-21] MEDS ORDERED: ACETAMINOPHEN 325 MG TAB PO PRN (10:27)
[2020-09-21] MEDS ORDERED: ONDANSETRON INJ 2 MG/ML 2 ML VIAL IV PRN (10:27)
[2020-09-21] MEDS ORDERED: NITROGLYCERIN SL 0.4 MG/TAB TAB SL PRN (10:27)
[2020-09-21] MEDS ORDERED: DEXTROSE 50% 50 ML SYRINGE IV PRN (11:00)
[2020-09-21] MEDS ORDERED: GLUCOSE 40% GEL 15 GM TUBE PO PRN (11:00)
[2020-09-21] MEDS ORDERED: GLUCAGON FOR INJ 1 MG VIAL IM PRN (11:00)
[2020-09-21] MEDS ORDERED: CARBOHYDRATES FOR HYPOGLYCEMIA PO PRN (11:00)
[2020-09-21] MEDS ORDERED: GLUCOSE 10 TABS/TUBE PO PRN (11:00)
[2020-09-21] MEDS: VENLAFAXINE HCL XR 150 MG CAPXR PO SCH (11:15)
[2020-09-21] MEDS: LOSARTAN POTASSIUM 50 MG TAB PO SCH (11:16)
[2020-09-21] MEDS: MAGNESIUM OXIDE 400 MG TAB PO SCH (11:16)
[2020-09-21] MEDS: OXYBUTYNIN CHLORIDE 5 MG TAB PO SCH ×2 (11:16→20:31)
[2020-09-21] MEDS: hydroCHLOROthiazide 25 MG TAB PO SCH (11:16)
[2020-09-21] MEDS: CYANOCOBALAMIN 500 MCG TABLET (VITAMIN B-12) PO SCH (11:16)
[2020-09-21] MEDS: levETIRAcetam 500 MG TAB PO SCH ×2 (11:16→20:32)
[2020-09-21] MEDS: METOPROLOL SUCC 50MG EXT REL TAB PO SCH (11:16)
[2020-09-21] MEDS: ENOXAPARIN INJ 40 MG/0.4 ML SYR SQ SCH ×2 (11:16→22:06)
[2020-09-21] MEDS: dilTIAZem HCL 180 MG CAPCR PO SCH (11:16)
[2020-09-21] MEDS: POLYETHYLENE (MIRALAX) 17 GM PACK PO SCH (11:16)
[2020-09-21] MEDS: PREGABALIN 150 MG CAP PO SCH ×2 (11:21→20:31)
[2020-09-21] MEDS: oxyCODONE HCL IR 5 MG TAB (IMMEDIATE RELEASE) PO PRN ×2 (11:22→17:53)
[2020-09-21] MEDS: CHOLECALCIFEROL 1,000 UNITS 25 MCG TAB PO SCH (11:59)
[2020-09-21] MEDS: PANTOprazole 40 MG TAB PO SCH (11:59)
[2020-09-21] MEDS: ASPIRIN 81 MG ECTAB PO SCH (11:59)
[2020-09-21] MEDS: INSULIN ASPART 100 UNITS/ML 3 ML PEN SQ SCH ×3 (13:01→20:48)
[2020-09-21] MEDS: metFORMIN HCL 500 MG TAB PO SCH (17:42)
[2020-09-21] MEDS: DOCUSATE SODIUM 100 MG CAP PO SCH (20:31)
[2020-09-21] MEDS: ATORVASTATIN 20 MG TAB PO SCH (20:32)
[2020-09-21] MEDS ORDERED: INSULIN GLARGINE SOLOSTAR 100 UNITS/ML 3 ML PEN SQ SCH (21:00)
[2020-09-22] MEDS: MEROPENEM 500 MG in SYRINGE 0 ML IV SCH (05:52)
--- NOTE | 2020-09-22 08:38 | XCELERA ---
[id number]
[2020-09-22] MEDS: hydroCHLOROthiazide 25 MG TAB PO SCH (08:56)
[2020-09-22] MEDS: VENLAFAXINE HCL XR 150 MG CAPXR PO SCH (08:56)
[2020-09-22] MEDS: LOSARTAN POTASSIUM 50 MG TAB PO SCH (08:56)
[2020-09-22] MEDS: OXYBUTYNIN CHLORIDE 5 MG TAB PO SCH ×2 (08:56→20:27)
[2020-09-22] MEDS: levETIRAcetam 500 MG TAB PO SCH ×2 (08:56→20:27)
[2020-09-22] MEDS: MAGNESIUM OXIDE 400 MG TAB PO SCH (08:56)
[2020-09-22] MEDS: PANTOprazole 40 MG TAB PO SCH (08:57)
[2020-09-22] MEDS: dilTIAZem HCL 180 MG CAPCR PO SCH (08:57)
[2020-09-22] MEDS: CHOLECALCIFEROL 1,000 UNITS 25 MCG TAB PO SCH (08:57)
[2020-09-22] MEDS: POLYETHYLENE (MIRALAX) 17 GM PACK PO SCH (08:57)
[2020-09-22] MEDS: metFORMIN HCL 500 MG TAB PO SCH ×2 (08:57→17:39)
[2020-09-22] MEDS: CYANOCOBALAMIN 500 MCG TABLET (VITAMIN B-12) PO SCH (08:57)
[2020-09-22] MEDS: METOPROLOL SUCC 50MG EXT REL TAB PO SCH (08:57)
[2020-09-22] MEDS: ASPIRIN 81 MG ECTAB PO SCH (08:57)
[2020-09-22] MEDS: INSULIN ASPART 100 UNITS/ML 3 ML PEN SQ SCH ×2 (08:59→12:51)
[2020-09-22] MEDS: oxyCODONE HCL IR 5 MG TAB (IMMEDIATE RELEASE) PO PRN (09:35)
[2020-09-22] MEDS: PREGABALIN 150 MG CAP PO SCH ×2 (09:35→20:32)
[2020-09-22] MEDS: ENOXAPARIN INJ 40 MG/0.4 ML SYR SQ SCH ×2 (11:47→22:13)
--- NOTE | 2020-09-22 12:50 | Hospitalist Progress Note ---
Date of Service September 22, 2020 Assessment & Plan (1) Ambulatory dysfunction: Plan: Fall appears to be mechanical in nature. No fractures from imaging in emergency room from the fall. PT/OT eval's pending Medically stable for discharge at this time. (2) Hip pain: Plan: No fracture on CT Traumatic contusion (3) Weakness: Plan: Acute on chronic from deconditioning No acute symptoms to suggest UTI -we will discontinue antibiotics for this. (4) Obesity: (5) Epilepsy: Plan: Continue Keppra 500 mg twice daily (6) Hypertension: Plan: Metoprolol 50 mg XL Losartan 50 mg every morning Diltiazem 180 mg extended release (7) T2DM (type 2 diabetes mellitus): Plan: Continue Metformin On review of recent diabetes visit Lantus was increased to 66 units Continue pregabalin 150 mg twice daily HbA1c 8.7 in April (8) Heart murmur on physical examination: Plan: TTE -no significant valvular disease. Suspected mild mitral regurgitation, mild aortic stenosis, moderate concentric left ventricular hypertrophy. Plan: VT prophylaxis -Lovenox 40 mg SQ every 12 hourly Disposition -medically stable for discharge pending PT/OT eval's and possible need for placement Admission and Anticipated Discharge Date Admission Date: September 21, 2020 Subjective Patient currently feels at baseline other than her ongoing pain. No urinary symptoms such as dysuria, urinary frequency, change in smell or color, CVA tenderness, fever or chills. Review of Systems Review of Systems: All systems reviewed & are unremarkable except as noted in HPI & below Physical Exam Constitutional: WD/WN, vitals as above + morbidly obese Respiratory: normal respiratory effort, lungs clear to auscultation Cardiovascular: Rate/Rhythm: regular rate and regular rhythm Heart Sounds: + murmur Gastrointestinal (Abdomen): Inspection/Auscultation: normal bowel sounds Percussion/Palpation: abdomen soft; abdomen nontender Psychiatric: A+Ox3, euthymic affect Genitourinary: no CVA tenderness Results & Data Results & Data ([facility]) Vital Signs (Past 12 Hours) Vital Signs Temp Pulse Resp BP Pulse Ox 09/22/20 07:35 37.1 C 72 19 127/75 93 PG Care Time/CCT Total # of Minutes Spent Total Time Spent with Patient: Total time spent is greater than 50% in coordination of care (as documented) at patient's floor/unit and/or counseling patient: Coding Level of Care Code 51363 Subseq Obs Care Lvl 2 Diagnoses Ambulatory dysfunction R26.2 Hip pain M25.559 Weakness R53.1 Obesity E66.9 Epilepsy G40.909 Hypertension I10 T2DM (type 2 diabetes mellitus) E11.9 Heart murmur on physical examination R01.1
[2020-09-22] MEDS: INSULIN ASPART 100 UNITS/ML 3 ML PEN SC SCH ×3 (13:01→21:21)
[2020-09-22] MEDS: DOCUSATE SODIUM 100 MG CAP PO SCH (20:27)
[2020-09-22] MEDS: ATORVASTATIN 20 MG TAB PO SCH (20:27)
[2020-09-22] MEDS: INSULIN GLARGINE SOLOSTAR 100 UNITS/ML 3 ML PEN SQ SCH (21:21)
[2020-09-23] MEDS: POLYETHYLENE (MIRALAX) 17 GM PACK PO SCH (08:27)
[2020-09-23] MEDS: metFORMIN HCL 500 MG TAB PO SCH ×2 (08:28→17:58)
[2020-09-23] MEDS: dilTIAZem HCL 180 MG CAPCR PO SCH (08:28)
[2020-09-23] MEDS: CYANOCOBALAMIN 500 MCG TABLET (VITAMIN B-12) PO SCH (08:28)
[2020-09-23] MEDS: OXYBUTYNIN CHLORIDE 5 MG TAB PO SCH ×2 (08:28→21:00)
[2020-09-23] MEDS: PANTOprazole 40 MG TAB PO SCH (08:28)
[2020-09-23] MEDS: levETIRAcetam 500 MG TAB PO SCH ×2 (08:28→20:59)
[2020-09-23] MEDS: CHOLECALCIFEROL 1,000 UNITS 25 MCG TAB PO SCH (08:29)
[2020-09-23] MEDS: VENLAFAXINE HCL XR 150 MG CAPXR PO SCH (08:29)
[2020-09-23] MEDS: ASPIRIN 81 MG ECTAB PO SCH (08:29)
[2020-09-23] MEDS: METOPROLOL SUCC 50MG EXT REL TAB PO SCH (08:29)
[2020-09-23] MEDS: MAGNESIUM OXIDE 400 MG TAB PO SCH (08:29)
[2020-09-23] MEDS: LOSARTAN POTASSIUM 50 MG TAB PO SCH (08:29)
[2020-09-23] MEDS: hydroCHLOROthiazide 25 MG TAB PO SCH (08:30)
[2020-09-23] MEDS: PREGABALIN 150 MG CAP PO SCH ×2 (08:31→20:59)
[2020-09-23] MEDS: INSULIN ASPART 100 UNITS/ML 3 ML PEN SC SCH ×4 (08:32→20:55)
[2020-09-23] MEDS: oxyCODONE HCL IR 5 MG TAB (IMMEDIATE RELEASE) PO PRN ×2 (10:08→17:10)
[2020-09-23] MEDS: ENOXAPARIN INJ 40 MG/0.4 ML SYR SQ SCH ×2 (10:08→22:14)
--- NOTE | 2020-09-23 18:47 | Hospitalist Progress Note ---
Date of Service September 23, 2020 Assessment & Plan (1) Ambulatory dysfunction: Plan: Fall appears to be mechanical in nature. No fractures from imaging in emergency room from the fall. PT/OT eval's pending Medically stable for discharge at this time. (2) Hip pain: Plan: No fracture on CT Traumatic contusion (3) Weakness: Plan: Acute on chronic from deconditioning No acute symptoms to suggest UTI -we will discontinue antibiotics for this. (4) Obesity: (5) Epilepsy: Plan: Continue Keppra 500 mg twice daily (6) Hypertension: Plan: Metoprolol 50 mg XL Losartan 50 mg every morning Diltiazem 180 mg extended release (7) T2DM (type 2 diabetes mellitus): Plan: Continue Metformin On review of recent diabetes visit Lantus was increased to 66 units Continue pregabalin 150 mg twice daily HbA1c 8.7 in April (8) Heart murmur on physical examination: Plan: TTE -no significant valvular disease. Suspected mild mitral regurgitation, mild aortic stenosis, moderate concentric left ventricular hypertrophy. Plan: VT prophylaxis -Lovenox 40 mg SQ every 12 hourly Disposition -medically stable for discharge pending placement Admission and Anticipated Discharge Date Admission Date: September 21, 2020 Subjective Continued right knee and hip pain. Limiting her ability for rehabilitation at home. Planning on placement at this time. Review of Systems Review of Systems: All systems reviewed & are unremarkable except as noted in HPI & below Physical Exam Constitutional: WD/WN, vitals as above + morbidly obese Respiratory: normal respiratory effort, lungs clear to auscultation Cardiovascular: Rate/Rhythm: regular rate and regular rhythm Heart Sounds: + murmur Gastrointestinal (Abdomen): Inspection/Auscultation: normal bowel sounds Percussion/Palpation: abdomen soft; abdomen nontender Psychiatric: A+Ox3, euthymic affect Results & Data Results & Data ([facility]) Vital Signs (Past 12 Hours) Vital Signs Temp Pulse Resp BP Pulse Ox 09/23/20 07:54 36.7 C 77 16 120/67 91 PG Care Time/CCT Total # of Minutes Spent Total Time Spent with Patient: Total time spent is greater than 50% in coordination of care (as documented) at patient's floor/unit and/or counseling patient: Coding Level of Care Code 27820 Subseq Hosp Care Lvl 1 Diagnoses Ambulatory dysfunction R26.2 Hip pain M25.559 Weakness R53.1 Obesity E66.9 Epilepsy G40.909 Hypertension I10 T2DM (type 2 diabetes mellitus) E11.9 Heart murmur on physical examination R01.1
[2020-09-23] MEDS: INSULIN GLARGINE SOLOSTAR 100 UNITS/ML 3 ML PEN SQ SCH (20:54)
[2020-09-23] MEDS: DOCUSATE SODIUM 100 MG CAP PO SCH (20:59)
[2020-09-23] MEDS: ATORVASTATIN 20 MG TAB PO SCH (21:00)
[2020-09-24] MEDS: oxyCODONE HCL IR 5 MG TAB (IMMEDIATE RELEASE) PO PRN ×2 (01:46→14:13)
[2020-09-24 06:59] LABS: Creatinine Clr Calc Pharmacy 82.1 ml/min; Est GFR (African American) 97.3 ml/min; Est GFR (Non-African American) 83.9 ml/min
[2020-09-24 07:33] LABS: Estimated Average Glucose 177 mg/dl; Hemoglobin A1C 7.8 % (4.5-5.6)
[2020-09-24] MEDS: METOPROLOL SUCC 50MG EXT REL TAB PO SCH (08:54)
[2020-09-24] MEDS: levETIRAcetam 500 MG TAB PO SCH ×2 (08:54→22:08)
[2020-09-24] MEDS: OXYBUTYNIN CHLORIDE 5 MG TAB PO SCH ×2 (08:54→22:08)
[2020-09-24] MEDS: hydroCHLOROthiazide 25 MG TAB PO SCH (08:54)
[2020-09-24] MEDS: dilTIAZem HCL 180 MG CAPCR PO SCH (08:54)
[2020-09-24] MEDS: VENLAFAXINE HCL XR 150 MG CAPXR PO SCH (08:54)
[2020-09-24] MEDS: POLYETHYLENE (MIRALAX) 17 GM PACK PO SCH (08:54)
[2020-09-24] MEDS: MAGNESIUM OXIDE 400 MG TAB PO SCH (08:54)
[2020-09-24] MEDS: metFORMIN HCL 500 MG TAB PO SCH ×2 (08:54→17:50)
[2020-09-24] MEDS: PANTOprazole 40 MG TAB PO SCH (08:54)
[2020-09-24] MEDS: CHOLECALCIFEROL 1,000 UNITS 25 MCG TAB PO SCH (08:55)
[2020-09-24] MEDS: CYANOCOBALAMIN 500 MCG TABLET (VITAMIN B-12) PO SCH (08:55)
[2020-09-24] MEDS: LOSARTAN POTASSIUM 50 MG TAB PO SCH (08:55)
[2020-09-24] MEDS: ASPIRIN 81 MG ECTAB PO SCH (08:55)
[2020-09-24] MEDS: PREGABALIN 150 MG CAP PO SCH ×2 (08:56→22:16)
[2020-09-24] MEDS: INSULIN ASPART 100 UNITS/ML 3 ML PEN SC SCH ×4 (08:57→22:12)
[2020-09-24] MEDS: ENOXAPARIN INJ 40 MG/0.4 ML SYR SQ SCH ×2 (11:03→22:10)
--- NOTE | 2020-09-24 20:52 | Hospitalist Progress Note ---
Date of Service September 24, 2020 Assessment & Plan (1) Ambulatory dysfunction: Plan: Fall appears to be mechanical in nature. No fractures from imaging in emergency room from the fall. PT/OT evals recommending inpatient rehab Medically stable for discharge at this time. (2) Hip pain: Plan: No fracture on CT Traumatic contusion (3) Weakness: Plan: Acute on chronic from deconditioning No acute symptoms to suggest UTI - discontinued antibiotics. (4) Obesity: (5) Epilepsy: Plan: Continue Keppra 500 mg twice daily (6) Hypertension: Plan: Metoprolol 50 mg XL Losartan 50 mg every morning Diltiazem 180 mg extended release (7) T2DM (type 2 diabetes mellitus): Plan: Continue Metformin On review of recent diabetes visit Lantus was increased to 66 units Continue pregabalin 150 mg twice daily HbA1c 8.7 in April (8) Heart murmur on physical examination: Plan: TTE -no significant valvular disease. Suspected mild mitral regurgitation, mild aortic stenosis, moderate concentric left ventricular hypertrophy. Plan: VT prophylaxis -Lovenox 40 mg SQ every 12 hourly Disposition -medically stable for discharge pending placement Admission and Anticipated Discharge Date Admission Date: September 24, 2020 Subjective Mild improvements in her pain. No acute events overnight. No urinary symptoms. Review of Systems Review of Systems: All systems reviewed & are unremarkable except as noted in HPI & below Physical Exam Constitutional: WD/WN, vitals as above + morbidly obese Respiratory: normal respiratory effort Psychiatric: A+Ox3, euthymic affect Results & Data Results & Data ([facility]) Vital Signs (Past 12 Hours) Vital Signs Temp Pulse Resp BP Pulse Ox 09/24/20 16:03 37.0 C 69 17 128/72 92 PG Care Time/CCT Total # of Minutes Spent Total Time Spent with Patient: Total time spent is greater than 50% in coordination of care (as documented) at patient's floor/unit and/or counseling patient: Coding Level of Care Code 77231 Subseq Hosp Care Lvl 1 Diagnoses Ambulatory dysfunction R26.2 Hip pain M25.559 Weakness R53.1 Obesity E66.9 Epilepsy G40.909 Hypertension I10 T2DM (type 2 diabetes mellitus) E11.9 Heart murmur on physical examination R01.1
[2020-09-24] MEDS: DOCUSATE SODIUM 100 MG CAP PO SCH (22:08)
[2020-09-24] MEDS: ATORVASTATIN 20 MG TAB PO SCH (22:09)
[2020-09-24] MEDS: INSULIN GLARGINE SOLOSTAR 100 UNITS/ML 3 ML PEN SQ SCH (22:13)
[2020-09-25] MEDS: oxyCODONE HCL IR 5 MG TAB (IMMEDIATE RELEASE) PO PRN (07:25)
[2020-09-25] MEDS: dilTIAZem HCL 180 MG CAPCR PO SCH (07:30)
[2020-09-25] MEDS: ASPIRIN 81 MG ECTAB PO SCH (07:30)
[2020-09-25] MEDS: PREGABALIN 150 MG CAP PO SCH (07:30)
[2020-09-25] MEDS: CHOLECALCIFEROL 1,000 UNITS 25 MCG TAB PO SCH (07:30)
[2020-09-25] MEDS: metFORMIN HCL 500 MG TAB PO SCH (07:30)
[2020-09-25] MEDS: LOSARTAN POTASSIUM 50 MG TAB PO SCH (07:31)
[2020-09-25] MEDS: METOPROLOL SUCC 50MG EXT REL TAB PO SCH (07:31)
[2020-09-25] MEDS: hydroCHLOROthiazide 25 MG TAB PO SCH (07:31)
[2020-09-25] MEDS: PANTOprazole 40 MG TAB PO SCH (07:31)
[2020-09-25] MEDS: MAGNESIUM OXIDE 400 MG TAB PO SCH (07:31)
[2020-09-25] MEDS: CYANOCOBALAMIN 500 MCG TABLET (VITAMIN B-12) PO SCH (07:31)
[2020-09-25] MEDS: OXYBUTYNIN CHLORIDE 5 MG TAB PO SCH (07:31)
[2020-09-25] MEDS: levETIRAcetam 500 MG TAB PO SCH (07:31)
[2020-09-25] MEDS: POLYETHYLENE (MIRALAX) 17 GM PACK PO SCH (07:32)
[2020-09-25] MEDS: VENLAFAXINE HCL XR 150 MG CAPXR PO SCH (07:32)
[2020-09-25] MEDS: INSULIN ASPART 100 UNITS/ML 3 ML PEN SC SCH ×2 (08:59→13:07)
[2020-09-25] MEDS: ENOXAPARIN INJ 40 MG/0.4 ML SYR SQ SCH (13:08)
--- NOTE | 2020-09-25 16:29 | Discharge Summary ---
Date of Service September 25, 2020 Admission HPI Per Admitting Provider Patient is a 75-year-old female who lives in a home who was getting up to go to the bathroom and lost her balance falling backwards. She denies chest pain shortness of breath or dizziness. She is afebrile. She had some subjective dizziness in the emergency department when they attempted to ambulate her. She is having 10 out of 10 pain in the left hip and lower back area. The pain started when she fell backwards striking that portion of her body against the ground. There is no numbness or tingling in the arms or legs she is globally weak. Previously she had been advised to have a short stay in a subacute rehab we discussed possibility that today she does not want to go to rehab in any circumstances. Discharge Data Allergies Allergy/AdvReac Type Severity Reaction Status Date / Time fentanyl Allergy Intermediate HIGH BLOOD Verified 09/21/20 09:35 PRESSURE, SKIN FLUSHED Cephalosporins Allergy Mild RASH Verified 09/21/20 09:35 Penicillins Allergy Mild RASH Verified 09/21/20 09:35 Sulfa (Sulfonamide Allergy Mild ? Verified 09/21/20 09:35 Antibiotics) bee venom protein (honey bee) Allergy Unknown . Verified 09/21/20 09:35 cephalexin Allergy Unknown Rash Verified 09/21/20 09:35 Iodinated Contrast Media Allergy Unknown PASS OUT, Verified 09/21/20 09:35 VOMITING ketorolac Allergy Unknown Unknown Verified 09/21/20 09:35 meperidine Allergy Unknown . Verified 09/21/20 09:35 aspartame Allergy Verified 09/21/20 09:35 stevioside [From Stevia] Allergy Verified 09/21/20 09:35 sucralose Allergy Verified 09/21/20 09:35 codeine AdvReac Mild ALTERED Verified 09/21/20 09:35 MENTAL STATUS morphine AdvReac Unknown Nausea Verified 09/21/20 09:35 Consultations 09/21/20 08:08 ED Decision to Admit Stat Ordered Studies 09/21/20 04:20 CT cervical spine wo con Stat CT head/brain wo con Stat 09/21/20 05:39 CT hip LT wo con Stat CT lumbar spine wo con Stat Hospital Course (1) Ambulatory dysfunction: Fall appears to be mechanical in nature. No fractures from imaging in emergency room from the fall. PT/OT evals recommending inpatient rehab Medically stable for discharge at this time. (2) Hip pain: No fracture on CT Traumatic contusion (3) Weakness: Acute on chronic from deconditioning No acute symptoms to suggest UTI - discontinued antibiotics. (4) Obesity: (5) Epilepsy: Continue Keppra 500 mg twice daily (6) Hypertension: Metoprolol 50 mg XL Losartan 50 mg every morning Diltiazem 180 mg extended release (7) T2DM (type 2 diabetes mellitus): Continue Metformin On review of recent diabetes visit Lantus was increased to 66 units Continue pregabalin 150 mg twice daily HbA1c 8.7 in April (8) Heart murmur on physical examination: TTE -no significant valvular disease. Suspected mild mitral regurgitation, mild aortic stenosis, moderate concentric left ventricular hypertrophy. VT prophylaxis -Lovenox 40 mg SQ every 12 hourly Disposition -medically stable for discharge pending placement Discharge Plan Discharge Items Patient Disposition: Transfer Alf Fac Reason For Visit: FALL/HIP PAIN W/ SHORTENING AND ROTATION Discharge Diagnosis: Fall Back, hip and knee contusion Activity: Resume your previous activity Non-emergency contact: Primary Care Provider Call non-emergency contact if: you have any medication questions and your symptoms worsen Follow-up/Referrals: Margarito Al [Primary Care Provider] - Diet: Carb Consistent or DM2 and Heart Healthy Addtl Attending Provider Instructions: You were admitted to [facility] from September 21 - September 25, 2020 due to a mechanical fall at home causing back, left hip and left knee pain. Initial concern for urinary tract infection however suspect this is asymptomatic bacteruria and antibiotics were subsequently discontinued. You underwent physical and occupational therapy assessments and recommended inpatient rehabilitation. Pending Studies at Discharge: No Stand-Alone Forms: [facility] Skilled Items Patient informed of condition?: Yes DNR: No Discharge Level of Care: Acute rehab Communicable Disease: No Discharge Prognosis: Stable Lines: None Urinary Catheter: No Medications and DC Order Prescriptions: Continued pregabalin 150 mg capsule 150 mg PO BID 30 Days Qty: 60 RF: 2 atorvastatin 20 mg tablet 20 mg PO HS Qty: 30 RF: 0 cetirizine 10 mg tablet 10 mg PO DAILY PRN (Reason: Allergy Symptoms) RF: 0 cyanocobalamin (vitamin B-12) 1,000 mcg capsule 1,000 mcg PO DAILY Qty: 30 RF: 0 diltiazem HCl 180 mg capsule,extended release 24hr 180 mg PO QAM RF: 0 docusate sodium 100 mg capsule 200 mg PO HS RF: 0 hydrochlorothiazide 25 mg tablet 25 mg PO QAM RF: 0 losartan 50 mg tablet 50 mg PO QAM RF: 0 magnesium oxide 400 mg (241.3 mg magnesium) tablet 400 mg PO QAM RF: 0 venlafaxine 150 mg capsule,extended release 24hr 150 mg PO QAM RF: 0 pantoprazole 40 mg tablet,delayed release (DR/EC) 40 mg PO QAM RF: 0 nitroglycerin 0.4 mg tablet, sublingual 0.4 mg SL DIRECTED PRN (Reason: Chest Pain) RF: 0 metoprolol succinate 50 mg tablet extended release 24 hr 50 mg PO QAM RF: 0 metformin 500 mg tablet 500 mg PO .COMPLEX Qty: 120 RF: 5 polyethylene glycol 3350 [Miralax] 17 gram Powder In Packet 17 g PO QAM RF: 0 acetaminophen [Tylenol Extra Strength] 500 mg Tablet 500 mg PO Q6H PRN (Reason: Pain) RF: 0 clotrimazole [Lotrimin AF (clotrimazole)] 1 % Cream 1 applic TOPICAL DIRECTED RF: 0 aspirin [Aspirin Low Dose] 81 mg Tablet,Delayed Release (Dr/Ec) 81 mg PO QAM RF: 0 cholecalciferol (vitamin D3) [Vitamin D3] 50 mcg (2,000 unit) Capsule 2,000 unit PO QAM RF: 0 oxybutynin chloride 5 mg tablet 5 mg PO BID RF: 0 levetiracetam 500 mg tablet 500 mg PO BID RF: 0 insulin aspart U-100 [Novolog Flexpen U-100 Insulin] 100 unit/mL (3 mL) insulin pen See Rx Instructions .ROUTE .COMPLEX Qty: 15 RF: 0 Changed Lantus U-100 Insulin 100 unit/mL solution 66 unit SUBCUT HS Qty: 0 RF: 0 Discharge Orders: Discharge Order (Routine); Ordered 09/25/20 Ordered By: Deondre Almanza Admission Data Admit Date/Time: 09/24/20 18:45 Attending Provider: Deondre Almanza Admit Provider: Lavelle Serrano Primary Care Provider: Margarito Al Other Providers: Lavelle Serrano ; [facility] ; [facility] Other Interventions: Discharge Summary Assessment (RN) Last Done: 09/25/20 15:33 Coding Diagnoses Ambulatory dysfunction R26.2 Hip pain M25.559 Weakness R53.1 Obesity E66.9 Epilepsy G40.909 Hypertension I10 T2DM (type 2 diabetes mellitus) E11.9 Heart murmur on physical examination R01.1
== END 2020-09-25 16:51 | DRG 605 ==
LOC: 3W 04:07 → ED 04:07 → SUATTDRO 08:22 → 3W 10:04

== ENCOUNTER 2021-03-01 12:40 | Inpatient (IN) ==
[2021-03-01] MEDS ORDERED: SODIUM CHLORIDE 0.9% 1000ML 500 ML IV ONE ×3 (13:03→15:30)
[2021-03-01 13:13] LABS: Hematocrit (blood only) 39.5 % (37-47); Hemoglobin 12.4 g/dL (12.0-16.0); Mean Corpuscular Hemoglobin 24.4 pg (25-34); Mean Corpuscular Hgb Conc 31.4 g/dL (32-36); Mean Corpuscular Volume 77.6 fL (80-100); Mean Platelet Volume 9.8 fL (7.4-10.4); Platelet Count 370 K/uL (130-400); RDW Coefficient of Variation 17.7 % (11.5-14.5); RDW Standard Deviation 50.3 fL (36.4-46.3); Red Blood Count 5.09 M/uL (4.2-5.4); White Blood Count 19.23 K/uL (4.8-10.8)
[2021-03-01] MEDS ORDERED: SODIUM CHLORIDE 0.9% 1000ML 1,000 ML IV SCH ×2 (13:15→20:02)
[2021-03-01 13:23] LABS: Partial Thromboplastin Ratio 1.1; Prothrombin Time 10.5 Seconds (9.0-12.0)
[2021-03-01 13:34] LABS: Alanine Aminotransferase 13 (12-78); BUN Creatinine Ratio 11.9 (10-20); Blood Urea Nitrogen 9 mg/dl (7-18); Calcium 9.7 mg/dl (8.5-10.1); Carbon Dioxide 28 mmol/L (21-32); Chloride 99 mmol/L (98-107); Creatinine Clr Calc Pharmacy 74.5 ml/min; Est GFR (African American) 86.8 ml/min; Est GFR (Non-African American) 74.9 ml/min; Glucose 194 mg/dl (70-99); Magnesium 1.8 mg/dl (1.8-2.4); Potassium 3.9 mmol/L (3.5-5.1); Sodium 134 mmol/L (136-145)
[2021-03-01 13:39] LABS: Alkaline Phosphatase 117 U/L (45-117); Aspartate Aminotransferase 9 U/L (15-37); Bilirubin,Total 0.6 mg/dl (0.2-1); Total Protein 7.7 gm/dl (6.4-8.2); Troponin I < 0.015 ng/ml (0-0.045)
[2021-03-01 13:40] LABS: Basophils # (auto) 0.04 K/uL (0-0.2); Basophils % (auto) 0.2 %; Eosinophils # (auto) 0.01 K/uL (0-0.5); Eosinophils % (auto) 0.1 %; Immature Granulocytes # (auto) 0.04 K/uL (0.00-0.02); Immature Granulocytes % (auto) 0.2 %; Lymphocytes # (auto) 1.71 K/uL (1.2-3.4); Lymphocytes % (auto) 8.9 %; Monocytes # (auto) 1.88 K/uL (0.11-0.59); Monocytes % (auto) 9.8 %; Neutrophils # (auto) 15.55 K/uL (1.4-6.5); Neutrophils % (auto) 80.8 %
--- NOTE | 2021-03-01 13:48 | XRay Report ---
XR chest 1V portable CLINICAL HISTORY: SEPSIS TECHNIQUE: Single frontal radiograph of the chest was obtained. Comparison: Comparison is made to chest one view 10/06/2020 FINDINGS: No lines and tubes are seen. Cardiomegaly is noted. Right greater than left lower lung predominant op acities are seen. No evidence of pleural effusion or pneumothorax. Redemonstration of hiatal hernia. IMPRESSION: 1. Bilateral lower lung predominant airspace opacities which may represent atelectasis, pneumonia, a nd/or aspiration. 2. Stable cardiomegaly. ACT 112: Negative or not required by law. Electronically signed by: Luis Rubio M.D. 03/01/2021 1:47 PM
[2021-03-01 14:01] LABS: Albumin Globulin Ratio 0.6 (0.9-2); Albumin Level 2.9 gm/dl (3.4-5.0); Globulin 4.8 gm/dl (2.5-4.0)
[2021-03-01 14:21] LABS: Appearance Urine Clear (Clear); Bacteria Urine Automated 1+ (Negative); Bilirubin Urine Negative (Negative); Blood Urine 2+ (Negative); Cast Urine Automated 0 /lpf (0-5); Color Urine Yellow; Epithelial Cell Urine Auto 20-30 /lpf (0-5); Glucose Urine UA Negative (Negative); Ketones Urine Negative (Negative); Leukocyte Esterase Urine Negative (Negative); Nitrite Urine Negative (Negative); Protein Urine 3+ (Negative); RBC Urine Automated 0-4 /hpf (0-4); Specific Gravity Urine 1.019 (1.000-1.030); Urobilinogen Urine Negative (Negative)
[2021-03-01] MEDS ORDERED: ACETAMINOPHEN 1,000 MG/100 ML VIAL IV STA (14:28)
[2021-03-01 14:40] LABS: Influenza A virus by PCR Negative (Neg); Influenza B virus by PCR Negative (Neg); RSV by PCR Negative (Neg); SARS CoV2 RNA(COVID-19) InHosp NEGATIVE (Negative)
[2021-03-01] MEDS ORDERED: MEROPENEM CONSULT ACTIVE PRN ×2 (14:46→20:02)
[2021-03-01] MEDS ORDERED: MEROPENEM 500 MG in SYRINGE 0 ML IV STA (14:46)
[2021-03-01] MEDS ORDERED: diphenhydrAMINE 50 MG/ML VIAL IV STA (15:30)
[2021-03-01] MEDS ORDERED: methylPREDNISolone 60 MG in SYRINGE 1 ML IV STA (15:33)
[2021-03-01] MEDS ORDERED: methylPREDNISolone 125 MG/2 ML VIAL ONE (15:35)
[2021-03-01] MEDS ORDERED: OPTIRAY 320 125ml IV ONE (15:47)
--- NOTE | 2021-03-01 15:55 | CT Scan Report ---
CT head/brain wo con CLINICAL HISTORY: headache Technique: Contiguous axial CT images of the head were acquired from the base of the skull to the jono samantha without intravenous contrast administration. Images were viewed in brain, subdural and [facility] . Automated dose lowering techniques and/or adjustment according to patient size were utilized for this exam. Comparison: Comparison is made to CT head 10/06/2020 Findings: Areas of decreased attenuation are present in the periventricular and subcortical white matter bilate rally consistent with small vessel ischemic disease. Generalized cerebral atrophy with commensurate e nlargement of the ventricles, sulci, and cisterns is also present. There is no acute intracranial hem orrhage or evidence of acute territorial infarction. No shift of the midline structures, mass effect, or extra-axial abnormalities are shown. Atherosclerotic calcifications are present in the intracran ial segments of the internal carotid arteries. Vascular coils are seen in the left MCA distribution. There is stable encephalomalacia in the left frontal lobe compatible with old stroke. Imaged portions of the paranasal sinuses and mastoid air cells are clear. The orbits appear normal. There are no acute fractures of the calvaria or scalp swelling. Impression: No acute intracranial hemorrhage, no evidence of acute territorial infarction or other acute intracra nial disease process. ACT 112: Negative or not required by law. Electronically signed by: Luis Rubio M.D. 03/01/2021 3:53 PM
--- NOTE | 2021-03-01 16:03 | Communication Note ---
Date of Service: March 01, 2021 Esthela is a 75-year-old female with a past medical history of obesity, type 2 diabetes mellitus, seizure, Covid, pseudomonal UTI, and sensory ataxia who pr esented with fever, sweats, chills, and cough and was recommended for admission for sepsis with a lactate of 2.6 and leukocytosis. Patient is Covid negative, CT chest pending. Sepsis 2/2 pneumonia Patient with several days of fever, sweats, chills, and cough Leukocytosis to 19.3, NLR 9.14 Received NSS 1.5 L bolus, methylprednisolone, and meropenem in ER followed by NSS 100 cc/h Patient obese, 115 kg. IBW 48/8 BW 74 kg. Lactate elevated to 2.6 on admission, repeat pending following treatment above Sodium 134 Creatinine 0.78 Magnesium normal UA 1+ bacteria Covid negative, flu a negative, flu B-, RSV negative Patient previously Covid + 03/06/2020 CXR: Bilateral lower airspace opacities CTA: CTH: Blood cultures pending Urine culture pending Sputum culture pending On empiric meropenem. Patient with allergies to cephalosporins, penicillins, sulfa. Prior UC 07/12 with Pseudomonas fluoroquinolone resistant, discussed with pharmacy by ER on admission. EKG: Left bundle branch block, QTC 537, QRS 140. Previous EKG with left bundle branch block, QTC 481, QRS 142. Troponin negative Echo 09/22/2020: Hyperdynamic with mild LVOTO, moderate LVH, grade 1 diastolic dysfunction. Hyperlipidemia Continue lovastatin 20 mg nightly Hypertension, history of angina Continue aspirin 81 mg daily Continue diltiazem 180 mg p.o. every morning Continue metoprolol succinate 25 mg p.o. daily Type 2 diabetes mellitus Home Lantus 60 units nightly, aspart 10 units with breakfast, 6 units with lunch, 10 units with dinner TDD 86 units Glucose checks AC/at bedtime Converted to [] Hold home metformin, on 2 g MOVEMAN Anxiety/depression Continue venlafaxine ER 150 mg p.o. every morning History of seizure Continue Keppra 500 mg p.o. twice daily
--- NOTE | 2021-03-01 16:04 | CT Scan Report ---
CT angio chest PE protocol CLINICAL HISTORY: PE, fever, tachycardia, cough TECHNIQUE: Multidetector row helical CT of the chest was performed. Coronal and sagittal reformations were obtained. Coronal and sagittal MIPS were obtained from the axial data set and were submitted fo r review. Automated dose lowering techniques and/or adjustment according to patient size were utiliz ed for this exam. Comparison: Comparison is made to chest one view 03/01/2021 FINDINGS: Lungs and pleura: There is atelectasis and possibly some consolidative changes in the right lower lob e. Heart and pericardium: Heart size is normal. No pericardial effusion. Vessels: No evidence of pulmonary embolism. Pulmonary trunk measures 35 mm, enlarged. Mediastinum and glen: Unremarkable. Chest wall and lower neck: There is a hypodense left thyroid nodule measuring 23 mm. Abdomen: A large hiatal hernia is seen. Bones: Degenerative changes in the thoracic spine. There is a compression deformity of the T11 verteb ral body. IMPRESSION: 1. No evidence of pulmonary embolism. 2. Pulmonary hypertension. 3. Marked atelectasis of the right lung base. Superimposed pneumonia cannot be entirely excluded. ACT 112: Negative or not required by law. Electronically signed by: Luis Rubio M.D. 03/01/2021 4:02 PM
--- NOTE | 2021-03-01 16:12 | History & Physical Report ---
Date of Service March 01, 2021 Assessment & Plan (1) Sepsis: (2) Pneumonia: (3) Hyponatremia: (4) Weakness: (5) Dyslipidemia: (6) Hypertension: (7) T2DM (type 2 diabetes mellitus): Plan: Esthela Kenny is a 75-year-old female with a past medical history of obesity, type 2 diabetes mellitus, seizure, COVID, pseudomonal UTI, sensory ataxia, peripheral neuropathy, epilepsy, hypertension admitted for sepsis likely secondary to pneumonia. Sepsis secondary to pneumonia WBC 19.3 on admission Received NSS 1.5 L bolus, methylprednisolone, and meropenem in ER -- started on mIVF at 100cc/hr thereafter Lactate elevated to 2.6 on admission, repeat downtrended to 2.0 UA 1+ bacteria -- UCx ordered, Prior UCx on 07/12 with Pseudomonas that was fluoroquinolone resistant Covid negative, Influenza negative, RSV negative -- patient previously Covid + 03/06/2020 Troponin negative CXR showing bilateral lower airspace opacities CTA chest showed marked atelectasis of the right lung base, superimposed pneumonia cannot be excluded. No evidence of PE Blood, urine, sputum cultures ordered and pending Continue meropenem empirically pending further developments/speciations -- consider additional atypical coverage if no improvement on this Ordered MRSA nares -- if positive will add on MRSA coverage CBC, BMP, magnesium, Phos levels in the morning Weakness PT/OT consulted Hyperlipidemia Continue lovastatin 20 mg at night Hypertension Continue aspirin 81 mg daily Continue diltiazem 180 mg daily Continue metoprolol succinate 25 mg daily Type 2 diabetes mellitus Home Lantus 60 units nightly, aspart 10 units with breakfast, 6 units with lunch, 10 units with dinner TDD 86 units Home metformin on hold Ordered glycemic consult for glycemic management/SSI while admitted Anxiety/depression Continue venlafaxine ER 150 mg daily History of seizure Continue Keppra 500 mg BID Seasonal allergies Continue cetirizine 10 mg daily Peripheral neuropathy Continue home pregabalin 150 mg BID CODE STATUS: Conditional code YES to CPR/Meds/Shock. NO intubation/ventilation under any circumstances. Diet: Heart healthy/DM2 Dispo: Med telemetry DVT prophylaxis: Lovenox 40 mg SQ q12h due to weight History of Present Illness Primary Care Provider: Margarito Al Esthela Kenny is a 75-year-old female with a past medical history of obesity, type 2 diabetes mellitus, seizure, COVID, pseudomonal UTI, sensory ataxia, peripheral neuropathy, epilepsy, hypertension. She reports that since yesterday she had been feeling very fatigued and weak, also reported fever, sweats, chills, and cough. She felt short of breath when walking from her bed to the bathroom and at times felt like she would not be able to make it back. She lives alone at home but does have some health aides that come by. Ms. Kenny mention that she had been trying to use her medical alert button but this was not working and her aide ended up calling an ambulance to get her to the hospital. She did report mild abdominal pain earlier, and said that on a prior provider's examination she did have right upper quadrant pain. However, upon my examination she is nontender in all 4 quadrants. She arrived at the ED with a blood pressure of 153/77, tachycardic at 115 bpm, respiratory rate of 22, temperature elevated to 37.8 C, and was found to be hypoxic to 87% on room air. She received normal saline bolus 1.5 L, methylprednisolone 60 mg IV x1, and started on meropenem 500 mg IV due to multiple allergies including penicillins, cephalosporins, and sulfas, among others. She was also given a single dose of acetaminophen 1000 mg. Her lab work is significant for a lactate of 2.6, leukocytosis of 19.3, sodium 134, creatinine of 0.78. She had a CT a of the chest showing atelectasis of the right lung base (superimposed pneumonia cannot be entirely excluded), no evidence of PE. CTA chest showed marked atelectasis of the right lung base, superimposed pneumonia cannot be excluded. No evidence of PE. Head CT was negative for acute intracranial process. Allergies Allergy/AdvReac Type Severity Reaction Status Date / Time fentanyl Allergy Intermediate HIGH BLOOD Verified 03/01/21 13:05 PRESSURE, SKIN FLUSHED Cephalosporins Allergy Mild RASH Verified 03/01/21 13:05 Penicillins Allergy Mild RASH Verified 03/01/21 13:05 Sulfa (Sulfonamide Allergy Mild ? Verified 03/01/21 13:05 Antibiotics) bee venom protein (honey bee) Allergy Unknown . Verified 03/01/21 13:05 cephalexin Allergy Unknown Rash Verified 03/01/21 13:05 Iodinated Contrast Media Allergy Unknown PASS OUT, Verified 03/01/21 13:05 VOMITING ketorolac Allergy Unknown Unknown Verified 03/01/21 13:05 meperidine Allergy Unknown . Verified 03/01/21 13:05 aspartame Allergy Unknown Verified 03/01/21 13:05 stevioside [From Stevia] Allergy Unknown Verified 03/01/21 13:05 sucralose Allergy Unknown Verified 03/01/21 13:05 codeine AdvReac Mild ALTERED Verified 03/01/21 13:05 MENTAL STATUS morphine AdvReac Unknown Nausea Verified 03/01/21 13:05 Home Medications Medication Instructions Recorded Confirmed Type atorvastatin 20 mg tablet 20 mg PO HS #30 tab 02/09/19 03/01/21 History cetirizine 10 mg tablet 10 mg PO DAILY tab 02/09/19 03/01/21 History cyanocobalamin (vitamin B-12) 1,000 mcg PO DAILY #30 cap 02/09/19 03/01/21 History 1,000 mcg capsule diltiazem HCl 180 mg 180 mg PO QAM cap 02/09/19 03/01/21 History capsule,extended release 24 hr docusate sodium 100 mg capsule 200 mg PO HS cap 02/09/19 03/01/21 History magnesium oxide 400 mg (241.3 mg 400 mg PO QAM tab 02/09/19 03/01/21 History magnesium) tablet nitroglycerin 0.4 mg sublingual 0.4 mg SL DIRECTED PRN tab 02/09/19 03/01/21 History tablet pantoprazole 40 mg tablet,delayed 40 mg PO QAM tab 02/09/19 03/01/21 History release venlafaxine 150 mg 150 mg PO QAM cap 02/09/19 03/01/21 History capsule,extended release 24 hr acetaminophen 500 mg tablet 500 mg PO Q6H PRN 03/01/19 03/01/21 History (Tylenol Extra Strength) polyethylene glycol 3350 17 gram 17 g PO QAM 03/01/19 03/01/21 History oral powder packet (Miralax) aspirin 81 mg tablet,delayed 81 mg PO QAM 11/14/19 03/01/21 History release (Aspirin Low Dose) cholecalciferol (vitamin D3) 50 2,000 unit PO QAM 11/14/19 03/01/21 History mcg (2,000 unit) capsule (Vitamin D3) oxybutynin chloride 5 mg tablet 5 mg PO BID 11/14/19 03/01/21 History pregabalin 150 mg capsule 150 mg PO BID 30 Days #60 cap 12/04/19 03/01/21 Rx levetiracetam 500 mg tablet 500 mg PO BID 02/24/20 03/01/21 History insulin aspart U-100 100 unit/mL See Rx Instructions .ROUTE 07/30/20 03/01/21 Rx (3 mL) subcutaneous pen (Novolog .COMPLEX #15 ml Flexpen U-100 Insulin aspart) metformin 500 mg tablet 1,000 mg PO BIDM 90 Days #360 tab 11/08/20 03/01/21 Rx insulin glargine 100 unit/mL (3 60 unit SUBCUT HS ml 12/11/20 03/01/21 History mL) subcutaneous pen (Lantus Solostar U-100 Insulin) metoprolol succinate 25 mg 25 mg PO DAILY 03/01/21 03/01/21 History tablet,extended release 24 hr Past Med/Surg History Medical History HANNAH (acute kidney injury) Anesthesia in both legs Diabetic peripheral neuropathy Dyslipidemia Epilepsy Essential tremor Hypertension Hypoxic Loss of memory Obesity Peripheral neuropathy Sensory ataxia T2DM (type 2 diabetes mellitus) Tremor Vitamin B12 deficiency Vitamin D deficiency Surgical History Hx of cerebral aneurysm repair S/P adenoidectomy S/P cholecystectomy S/P hysterectomy S/P tonsillectomy S/P umbilical hernia repair, follow-up exam Status post tubal ligation Family History Mother Cancer Father Coronary heart disease Social History Smoking Status: Former smoker Hx Alcohol Use: No Hx Substance Use: No Preferred Language: Citizen Of [place] Communication Ability: Effective Kitchen Worker Required: No Beliefs That Will Affect Care: None marital status: / Current Living Situation: Family Feels Safe at Home: Yes Assistive Devices: Walker Review of Systems Review of Systems: per HPI Physical Exam Physical Exam: GENERAL: A&Ox3. NAD. HEENT: PERRL, EOMI. NECK: No JVD. No lymphadenopathy. CHEST/LUNGS: Diminished lung sounds in both bases, worse on the right. Otherwise clear to auscultation. No crackles, wheezes, rales, rhonchi. HEART: RRR. No m/g/r. ABDOMEN: NT/ND, soft. BS+ x4. EXTREMITIES: No cyanosis, no clubbing, no edema SKIN: Warm and dry. No rashes or lesions. PSYCHIATRIC: Euthymic affect, no SI, no pressured speech, no hallucinations. NEUROLOGIC: Moves all 4 extremities equally. CN II-XII grossly intact. Results & Data Results & Data ([facility]) Vital Signs (Past 12 Hours) Vital Signs Temp Pulse Resp BP Pulse Ox 03/01/21 13:36 37.8 C H 03/01/21 13:02 91 03/01/21 12:56 37.2 C 115 H 22 153/77 H 87 L Supervising Physician Co-Signing Physician Notes Patient seen and examined, chart reviewed, case discussed with Dr. Alfonso and I agree with the assessment and plan as above except as otherwise noted General: Fatigued, NAD. Cooperative. HEENT: Atraumatic, normocephalic. PERLAA. Pulm: Diminished + bibasilar crackles without rales, no wheezes. Symmetrical chest rise. No increase work of breathing. No respiratory distress. Cardiac: regular, tachycardic, -mrg. Radial pulses intact Abdominal: Nontender, nondistended, soft. BS present. Ext: Warm, dry, intact. All labs and images reviewed Esthela is a 75-year-old female with a past medical history of obesity, type 2 diabetes mellitus, seizure, Covid, pseudomonal UTI, and sensory ataxia who presented with fever, sweats, chills, and cough and was recommended for admission for sepsis with a lactate of 2.6 and leukocytosis. Patient is Covid negative, CT chest pending. Sepsis 2/2 pneumonia Patient with several days of fever, sweats, chills, and cough Leukocytosis to 19.3, NLR 9.14. Pro-Galo pending Received NSS 1.5 L bolus, methylprednisolone, and meropenem in ER followed by NSS 100 cc/h Patient obese, 115 kg. IBW 48/8 BW 74 kg. Lactate elevated to 2.6 on admission, repeat pending following treatment above Sodium 134 Creatinine 0.78 Magnesium normal UA 1+ bacteria Covid negative, flu a negative, flu B-, RSV negative Patient previously Covid + 03/06/2020 CXR: Bilateral lower airspace opacities CTA: No evidence of pulmonary embolism. Pulmonary hypertension. Marked atelectasis of the right lung base. Superimposed pneumonia cannot be entirely excluded. CTH:No acute intracranial hemorrhage, no evidence of acute territorial infarction or other acute intracranial disease process. Blood cultures pending Urine culture pending Sputum culture pending On empiric meropenem. Patient with allergies to cephalosporins, penicillins, sulfa. Prior UC 07/12 with Pseudomonas fluoroquinolone resistant, discussed with pharmacy by ER on admission. EKG: Left bundle branch block, QTC 537, QRS 140. Previous EKG with left bundle branch block, QTC 481, QRS 142. Troponin negative. No history of cardiac ischemia per pt and daughter Echo 09/22/2020: Hyperdynamic with mild LVOTO, moderate LVH, grade 1 diastolic dysfunction. Hyperlipidemia Continue lovastatin 20 mg nightly Hypertension, history of angina - History of heart cath 20 years ago normal, no recent catheterizations. Pt and daughter report no CAD. Continue aspirin 81 mg daily Continue diltiazem 180 mg p.o. every morning Continue metoprolol succinate 25 mg p.o. 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 Given sepsis + steroid load with high requirements glycemic consult placed Anxiety/depression Continue venlafaxine ER 150 mg p.o. every morning History of seizure - Last seizure >1 year ago, no recent activity. 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 Since then doing well on Keppra. Continue Keppra 500 mg p.o. twice daily CODE STATUS: Conditional code. YES to CPR/Meds/Shock. NO intubation/ventilation under any circumstances. Did discuss that if CPR is successful generally requires a temporary breathing tube/ventilation for airway protection stabilization. Pt and daughter aware of this, express and understanding, would like to remain conditional code. Resident Activity Tracking Resident Involvement: Resident Care Provided Care Provided: Adult [facility]
--- NOTE | 2021-03-01 17:00 | Billing Data ---
Date of Service March 01, 2021 Coding Level of Care Code 38297 Initial Inpt Care Lvl 3
[2021-03-01] MEDS ORDERED: METOPROLOL SUCC 50MG EXT REL TAB PO STA (17:04)
[2021-03-01] MEDS ORDERED: PREGABALIN 150 MG CAP PO STA (17:05)
[2021-03-01] MEDS ORDERED: dilTIAZem ER 180 MG CAPCR PO STA (17:05)
[2021-03-01] MEDS ORDERED: levETIRAcetam 500 MG TAB PO STA (17:05)
[2021-03-01] MEDS ORDERED: metFORMIN HCL 500 MG TAB PO STA (17:05)
[2021-03-01] MEDS ORDERED: VENLAFAXINE HCL XR 150 MG CAPXR PO SCH (17:15)
--- NOTE | 2021-03-01 18:02 | Emergency Department Note ---
Impression & Plan Hypoxia, Sepsis, Fever ED Provider Note CHIEF COMPLAINT: weakness, chills, sweats, cough HISTORY OF PRESENT ILLNESS: This 75-year-old female patient presents to the emergency department complaints of weakness, chills, sweats and cough. She states she ambulated to the bathroom but felt too weak/short of breath to get back from the bathroom without assistance. Her aide called the ambulance for assistance. She states she is vaccinated against COVID. She has caregivers COVID several times a week and does not believe they have exposed her. Patient denies any chest pain, nausea or vomiting. She does not normally wear oxygen at home REVIEW OF SYSTEMS: A review of systems was performed with positives and pertinent negatives listed in the history of present illness. 10 systems were reviewed and are otherwise negative. ALLERGIES: see below MEDICATIONS: see below PMH: see below SOCIAL HISTORY: see below DDx: Viral syndrome, otitis, pharyngitis, pneumonia, influenza, meningitis, urinary tract infection, sepsis, bacteremia, as well as other pathologies. PHYSICAL EXAM: Vital signs reviewed. General: Chronically ill-appearing, obese 75-year-old female, in no significant distress. HEENT: No scleral icterus, PERRLA, neck supple. Atraumatic. Cardiovascular: Regular rate and rhythm, no extra sounds. Pulmonary: Coarse breath sounds to the bases bilaterally, normal work of breathing on nasal cannula oxygen. Abdomen: Soft, obese, nontender, nondistended, positive bowel sounds. Musculoskeletal: Atraumatic, no peripheral edema. Neurologic: Patient awake alert and oriented x 3, speech is clear Skin: Warm, dry, no rash EMERGENCY DEPARTMENT COURSE/MDM: This patient was evaluated and appeared to be in no significant distress. IV access was obtained and laboratory work was drawn. Patient was placed on nasal cannula oxygen by EMS and this was continued upon arrival. IV fluids were initiated based on the patient's ideal body weight of 47.5 kg. Patient's laboratory work reveals a WBC of 19.23, blood cultures are pending. Lactate is noted to be elevated at 2.6. Chest x-ray is read as bibasilar consolidations consistent with atelectasis or pneumonia. COVID swab is negative. Patient has multiple medication allergies and this was discussed with pharmacy. Meropenem was recommended. CT imaging of the chest was performed and significant for right basilar consolidation but no PE. Patient is likely suffering from a pneumonia, given her immobility, aspiration would be of concern. UA was obtained and is largely contaminated does not appear infected. Patient is also admitted to administer metoprolol and diltiazem, her scheduled morning medications. These were ordered to be given as her blood pressure has remained elevated. Case was discussed with the hospitalist service who will evaluate patient for further management. MONITORING: An order for cardiac monitoring was placed and the patient is noted to be in a sinus tachycardia at 115 beats per minute. RADIOLOGY: see below EKG: poor quality baseline for interpretation. sinus tachycardia at 114 beats/min, left branch block, QTC is prolonged at 537. No PVC, no PAC. DISPOSITION:admit Past Med/Surg History Medical History HANNAH (acute kidney injury) Anesthesia in both legs Diabetic peripheral neuropathy Dyslipidemia Epilepsy Essential tremor Hypertension Hypoxic Loss of memory Obesity Peripheral neuropathy Sensory ataxia T2DM (type 2 diabetes mellitus) Tremor Vitamin B12 deficiency Vitamin D deficiency Surgical History Hx of cerebral aneurysm repair S/P adenoidectomy S/P cholecystectomy S/P hysterectomy S/P tonsillectomy S/P umbilical hernia repair, follow-up exam Status post tubal ligation Family History Mother Cancer Father Coronary heart disease Social History Smoking Status: Never smoker Hx Alcohol Use: No Hx Substance Use: No Preferred Language: Luxembourgish Communication Ability: Effective [employer] Required: No Beliefs That Will Affect Care: None marital status: / Current Living Situation: Family Feels Safe at Home: Yes Assistive Devices: Walker Allergies Allergies Allergy/AdvReac Type Severity Reaction Status Date / Time fentanyl Allergy Intermediate HIGH BLOOD Verified 03/01/21 13:05 PRESSURE, SKIN FLUSHED Cephalosporins Allergy Mild RASH Verified 03/01/21 13:05 Penicillins Allergy Mild RASH Verified 03/01/21 13:05 Sulfa (Sulfonamide Allergy Mild ? Verified 03/01/21 13:05 Antibiotics) bee venom protein (honey bee) Allergy Unknown . Verified 03/01/21 13:05 cephalexin Allergy Unknown Rash Verified 03/01/21 13:05 Iodinated Contrast Media Allergy Unknown PASS OUT, Verified 03/01/21 13:05 VOMITING ketorolac Allergy Unknown Unknown Verified 03/01/21 13:05 meperidine Allergy Unknown . Verified 03/01/21 13:05 aspartame Allergy Unknown Verified 03/01/21 13:05 stevioside [From Stevia] Allergy Unknown Verified 03/01/21 13:05 sucralose Allergy Unknown Verified 03/01/21 13:05 codeine AdvReac Mild ALTERED Verified 03/01/21 13:05 MENTAL STATUS morphine AdvReac Unknown Nausea Verified 03/01/21 13:05 Home Meds Home Medications Medication Instructions Recorded Confirmed atorvastatin 20 mg tablet 20 mg PO HS #30 tab 02/09/19 03/01/21 cetirizine 10 mg tablet 10 mg PO DAILY tab 02/09/19 03/01/21 cyanocobalamin (vitamin B-12) 1,000 mcg PO DAILY #30 cap 02/09/19 03/01/21 1,000 mcg capsule diltiazem HCl 180 mg 180 mg PO QAM cap 02/09/19 03/01/21 capsule,extended release 24 hr docusate sodium 100 mg capsule 200 mg PO HS cap 02/09/19 03/01/21 magnesium oxide 400 mg (241.3 mg 400 mg PO QAM tab 02/09/19 03/01/21 magnesium) tablet nitroglycerin 0.4 mg sublingual 0.4 mg SL DIRECTED PRN tab 02/09/19 03/01/21 tablet pantoprazole 40 mg tablet,delayed 40 mg PO QAM tab 02/09/19 03/01/21 release venlafaxine 150 mg 150 mg PO QAM cap 02/09/19 03/01/21 capsule,extended release 24 hr acetaminophen 500 mg tablet 500 mg PO Q6H PRN 03/01/19 03/01/21 (Tylenol Extra Strength) polyethylene glycol 3350 17 gram 17 g PO QAM 03/01/19 03/01/21 oral powder packet (Miralax) aspirin 81 mg tablet,delayed 81 mg PO QAM 11/14/19 03/01/21 release (Aspirin Low Dose) cholecalciferol (vitamin D3) 50 2,000 unit PO QAM 11/14/19 03/01/21 mcg (2,000 unit) capsule (Vitamin D3) oxybutynin chloride 5 mg tablet 5 mg PO BID 11/14/19 03/01/21 levetiracetam 500 mg tablet 500 mg PO BID 02/24/20 03/01/21 insulin glargine 100 unit/mL (3 60 unit SUBCUT HS ml 12/11/20 03/01/21 mL) subcutaneous pen (Lantus Solostar U-100 Insulin) metoprolol succinate 25 mg 25 mg PO DAILY 03/01/21 03/01/21 tablet,extended release 24 hr Previous Rx's Medication Instructions Recorded pregabalin 150 mg capsule 150 mg PO BID 30 Days #60 cap 12/04/19 insulin aspart U-100 100 unit/mL See Rx Instructions .ROUTE 07/30/20 (3 mL) subcutaneous pen (Novolog .COMPLEX #15 ml Flexpen U-100 Insulin aspart) metformin 500 mg tablet 1,000 mg PO BIDM 90 Days #360 tab 11/08/20 clindamycin HCl 300 mg capsule 300 mg PO TID 2 Days #6 cap 03/05/21 Results & Data (ED) Vital Signs Vital Signs - 24 hr 03/01/21 12:56 03/01/21 13:02 03/01/21 13:10 Temperature 37.2 C Temperature Source Oral Pulse Rate 115 H 116 H Pulse Rate [Finger] Pulse Rate from SpO2 Sensor 117 H Respiratory Rate 22 20 Respiratory Effort / Characteristics Non-Labored Spontaneous Respiratory Depth Normal Respiratory Pattern Regular Blood Pressure 153/77 H Blood Pressure [Left Arm] Blood Pressure Mean 102 Blood Pressure Mean [Left Arm] Blood Pressure Position Lying Blood Pressure Position [Left Arm] Pulse Oximetry 87 L 91 89 L Oxygen Delivery Method Room Air Nasal Cannula Oxygen Flow Rate 2 Sepsis Recent Fever Within 48 Hours No Sepsis New/Unexplained Change in Mental Status N/A Sepsis Action Taken by Nursing Physician Notified 03/01/21 13:20 03/01/21 13:30 03/01/21 13:36 Temperature 37.8 C H Temperature Source Oral Pulse Rate 116 H 118 H Pulse Rate [Finger] Pulse Rate from SpO2 Sensor 116 H 118 H Respiratory Rate 25 H 19 Respiratory Effort / Characteristics Respiratory Depth Respiratory Pattern Blood Pressure Blood Pressure [Left Arm] Blood Pressure Mean Blood Pressure Mean [Left Arm] Blood Pressure Position Blood Pressure Position [Left Arm] Pulse Oximetry 91 92 Oxygen Delivery Method Oxygen Flow Rate Sepsis Recent Fever Within 48 Hours Sepsis New/Unexplained Change in Mental Status Sepsis Action Taken by Nursing 03/01/21 13:40 03/01/21 13:50 03/01/21 14:00 Temperature Temperature Source Pulse Rate 115 H 114 H 116 H Pulse Rate [Finger] Pulse Rate from SpO2 Sensor 115 H 114 H 115 H Respiratory Rate 19 20 23 Respiratory Effort / Characteristics Respiratory Depth Respiratory Pattern Blood Pressure 139/107 H Blood Pressure [Left Arm] Blood Pressure Mean 117 Blood Pressure Mean [Left Arm] Blood Pressure Position Blood Pressure Position [Left Arm] Pulse Oximetry 92 92 92 Oxygen Delivery Method Oxygen Flow Rate Sepsis Recent Fever Within 48 Hours Sepsis New/Unexplained Change in Mental Status Sepsis Action Taken by Nursing 03/01/21 14:10 03/01/21 14:20 03/01/21 14:30 Temperature Temperature Source Pulse Rate 111 H 113 H 159 H Pulse Rate [Finger] Pulse Rate from SpO2 Sensor 114 H 113 H 119 H Respiratory Rate 22 25 H 24 Respiratory Effort / Characteristics Respiratory Depth Respiratory Pattern Blood Pressure Blood Pressure [Left Arm] Blood Pressure Mean Blood Pressure Mean [Left Arm] Blood Pressure Position Blood Pressure Position [Left Arm] Pulse Oximetry 95 96 93 Oxygen Delivery Method Oxygen Flow Rate Sepsis Recent Fever Within 48 Hours Sepsis New/Unexplained Change in Mental Status Sepsis Action Taken by Nursing 03/01/21 14:31 03/01/21 14:40 03/01/21 14:50 Temperature Temperature Source Pulse Rate 120 H 117 H 115 H Pulse Rate [Finger] Pulse Rate from SpO2 Sensor 120 H 117 H 115 H Respiratory Rate 21 19 20 Respiratory Effort / Characteristics Respiratory Depth Respiratory Pattern Blood Pressure 165/71 H Blood Pressure [Left Arm] Blood Pressure Mean 102 Blood Pressure Mean [Left Arm] Blood Pressure Position Blood Pressure Position [Left Arm] Pulse Oximetry 94 92 93 Oxygen Delivery Method Oxygen Flow Rate Sepsis Recent Fever Within 48 Hours Sepsis New/Unexplained Change in Mental Status Sepsis Action Taken by Nursing 03/01/21 15:00 03/01/21 15:10 03/01/21 15:20 Temperature Temperature Source Pulse Rate 119 H 117 H 115 H Pulse Rate [Finger] Pulse Rate from SpO2 Sensor 119 H 116 H 115 H Respiratory Rate 23 16 23 Respiratory Effort / Characteristics Respiratory Depth Respiratory Pattern Blood Pressure 156/90 H Blood Pressure [Left Arm] Blood Pressure Mean 112 Blood Pressure Mean [Left Arm] Blood Pressure Position Blood Pressure Position [Left Arm] Pulse Oximetry 93 91 93 Oxygen Delivery Method Oxygen Flow Rate Sepsis Recent Fever Within 48 Hours Sepsis New/Unexplained Change in Mental Status Sepsis Action Taken by Nursing 03/01/21 15:50 03/01/21 15:52 03/01/21 16:00 Temperature Temperature Source Pulse Rate 113 H 112 H 114 H Pulse Rate [Finger] Pulse Rate from SpO2 Sensor 114 H 112 H 114 H Respiratory Rate 14 22 19 Respiratory Effort / Characteristics Respiratory Depth Respiratory Pattern Blood Pressure 155/118 H 158/87 H Blood Pressure [Left Arm] Blood Pressure Mean 130 110 Blood Pressure Mean [Left Arm] Blood Pressure Position Blood Pressure Position [Left Arm] Pulse Oximetry 94 94 93 Oxygen Delivery Method Oxygen Flow Rate Sepsis Recent Fever Within 48 Hours Sepsis New/Unexplained Change in Mental Status Sepsis Action Taken by Nursing 03/01/21 16:10 03/01/21 16:20 03/01/21 16:23 Temperature Temperature Source Pulse Rate 115 H 112 H 115 H Pulse Rate [Finger] Pulse Rate from SpO2 Sensor 116 H 113 H 115 H Respiratory Rate 18 23 22 Respiratory Effort / Characteristics Respiratory Depth Respiratory Pattern Blood Pressure 138/113 H Blood Pressure [Left Arm] Blood Pressure Mean 121 Blood Pressure Mean [Left Arm] Blood Pressure Position Blood Pressure Position [Left Arm] Pulse Oximetry 93 92 94 Oxygen Delivery Method Oxygen Flow Rate Sepsis Recent Fever Within 48 Hours Sepsis New/Unexplained Change in Mental Status Sepsis Action Taken by Nursing 03/01/21 16:25 Temperature Temperature Source Pulse Rate Pulse Rate [Finger] 115 H Pulse Rate from SpO2 Sensor Respiratory Rate 20 Respiratory Effort / Characteristics Respiratory Depth Respiratory Pattern Blood Pressure Blood Pressure [Left Arm] 138/113 H Blood Pressure Mean Blood Pressure Mean [Left Arm] 121 Blood Pressure Position Blood Pressure Position [Left Arm] Lying Pulse Oximetry 93 Oxygen Delivery Method Nasal Cannula Oxygen Flow Rate 3 Sepsis Recent Fever Within 48 Hours Sepsis New/Unexplained Change in Mental Status Sepsis Action Taken by Shelter Medications Current Medication List: was personally reviewed by me Laboratory Data Attestation: I reviewed the patient's lab results. Result diagrams: 03/05/21 05:35 03/05/21 15:39 Lab Results 03/01/21 03/01/21 03/01/21 Range/Units 13:00 13:00 13:00 WBC 19.23 H (4.8-10.8) K/uL RBC 5.09 (4.2-5.4) M/uL Hgb 12.4 (12.0-16.0) g/dL Hct 39.5 (37-47) % MCV 77.6 L (80-100) fL MCH 24.4 L (25-34) pg MCHC 31.4 L (32-36) g/dL RDW Std Deviation 50.3 H (36.4-46.3) fL RDW Coeff of Nic 17.7 H (11.5-14.5) % Plt Count 370 (130-400) K/uL MPV 9.8 (7.4-10.4) fL Immature Gran % (Auto) 0.2 % Neut % (Auto) 80.8 % Lymph % (Auto) 8.9 % Dare % (Auto) 9.8 % Eos % (Auto) 0.1 % Baso % (Auto) 0.2 % Neut # (Auto) 15.55 H (1.4-6.5) K/uL Lymph # (Auto) 1.71 (1.2-3.4) K/uL Dare # (Auto) 1.88 H (0.11-0.59) K/uL Eos # (Auto) 0.01 (0-0.5) K/uL Baso # (Auto) 0.04 (0-0.2) K/uL Immature Gran # (Auto) 0.04 H (0.00-0.02) K/uL PT 10.5 (9.0-12.0) Seconds INR 1.0 (0.9-1.1) APTT 30.0 (21.0-31.0) Seconds PTT Ratio 1.1 Sodium 134 L (136-145) mmol/L Potassium 3.9 (3.5-5.1) mmol/L Chloride 99 (98-107) mmol/L Carbon Dioxide 28 (21-32) mmol/L Anion Gap 7.0 (3-11) BUN 9 (7-18) mg/dl Creatinine 0.78 (0.6-1.2) mg/dl Est Cr Clr Drug Dosing 74.5 ml/min Est GFR ( Amer) 86.8 ml/min Est GFR (Non-Af Amer) 74.9 ml/min BUN/Creatinine Ratio 11.9 (10-20) Glucose 194 H (70-99) mg/dl Lactate (0.4-2.0) mmol/L Calcium 9.7 (8.5-10.1) mg/dl Magnesium 1.8 (1.8-2.4) mg/dl Total Bilirubin 0.6 (0.2-1) mg/dl AST 9 L (15-37) U/L ALT 13 (12-78) Alkaline Phosphatase 117 (45-117) U/L Troponin I < 0.015 (0-0.045) ng/ml Total Protein 7.7 (6.4-8.2) gm/dl Albumin 2.9 L (3.4-5.0) gm/dl Globulin 4.8 H (2.5-4.0) gm/dl Albumin/Globulin Ratio 0.6 L (0.9-2) Procalcitonin (0-0.5) ng/ml Urine Color Urine Appearance (Clear) Urine pH (4.5-7.5) Ur Specific [place] (1.000-1.030) Urine Protein (Negative) Urine Glucose (UA) (Negative) Urine Ketones (Negative) Urine Blood (Negative) Urine Nitrite (Negative) Urine Bilirubin (Negative) Urine Urobilinogen (Negative) Ur Leukocyte Esterase (Negative) Urine WBC (Auto) (0-5) /hpf Urine RBC (Auto) (0-4) /hpf U Hyaline Cast (Auto) (0-5) /lpf U Epithel Cells (Auto) (0-5) /lpf Urine Bacteria (Auto) (Negative) SARS-CoV-2 (PCR) (Negative) Influenza Type A (PCR) (Neg) Influenza Type B (PCR) (Neg) RSV (RT-PCR) (Neg) 03/01/21 03/01/21 03/01/21 Range/Units 13:00 13:29 13:35 WBC (4.8-10.8) K/uL RBC (4.2-5.4) M/uL Hgb (12.0-16.0) g/dL Hct (37-47) % MCV (80-100) fL MCH (25-34) pg MCHC (32-36) g/dL RDW Std Deviation (36.4-46.3) fL RDW Coeff of Nic (11.5-14.5) % Plt Count (130-400) K/uL MPV (7.4-10.4) fL Immature Gran % (Auto) % Neut % (Auto) % Lymph % (Auto) % Dare % (Auto) % Eos % (Auto) % Baso % (Auto) % Neut # (Auto) (1.4-6.5) K/uL Lymph # (Auto) (1.2-3.4) K/uL Dare # (Auto) (0.11-0.59) K/uL Eos # (Auto) (0-0.5) K/uL Baso # (Auto) (0-0.2) K/uL Immature Gran # (Auto) (0.00-0.02) K/uL PT (9.0-12.0) Seconds INR (0.9-1.1) APTT (21.0-31.0) Seconds PTT Ratio Sodium (136-145) mmol/L Potassium (3.5-5.1) mmol/L Chloride (98-107) mmol/L Carbon Dioxide (21-32) mmol/L Anion Gap (3-11) BUN (7-18) mg/dl Creatinine (0.6-1.2) mg/dl Est Cr Clr Drug Dosing ml/min Est GFR ( Amer) ml/min Est GFR (Non-Af Amer) ml/min BUN/Creatinine Ratio (10-20) Glucose (70-99) mg/dl Lactate 2.5 H* (0.4-2.0) mmol/L Calcium (8.5-10.1) mg/dl Magnesium (1.8-2.4) mg/dl Total Bilirubin (0.2-1) mg/dl AST (15-37) U/L ALT (12-78) Alkaline Phosphatase (45-117) U/L Troponin I (0-0.045) ng/ml Total Protein (6.4-8.2) gm/dl Albumin (3.4-5.0) gm/dl Globulin (2.5-4.0) gm/dl Albumin/Globulin Ratio (0.9-2) Procalcitonin 0.30 (0-0.5) ng/ml Urine Color Yellow Urine Appearance Clear (Clear) Urine pH 8.0 H (4.5-7.5) Ur Specific [place] 1.019 (1.000-1.030) Urine Protein 3+ H (Negative) Urine Glucose (UA) Negative (Negative) Urine Ketones Negative (Negative) Urine Blood 2+ H (Negative) Urine Nitrite Negative (Negative) Urine Bilirubin Negative (Negative) Urine Urobilinogen Negative (Negative) Ur Leukocyte Esterase Negative (Negative) Urine WBC (Auto) 5-10 H (0-5) /hpf Urine RBC (Auto) 0-4 (0-4) /hpf U Hyaline Cast (Auto) 0 (0-5) /lpf U Epithel Cells (Auto) 20-30 H (0-5) /lpf Urine Bacteria (Auto) 1+ H (Negative) SARS-CoV-2 (PCR) (Negative) Influenza Type A (PCR) (Neg) Influenza Type B (PCR) (Neg) RSV (RT-PCR) (Neg) 03/01/21 03/01/21 Range/Units 13:35 15:20 WBC (4.8-10.8) K/uL RBC (4.2-5.4) M/uL Hgb (12.0-16.0) g/dL Hct (37-47) % MCV (80-100) fL MCH (25-34) pg MCHC (32-36) g/dL RDW Std Deviation (36.4-46.3) fL RDW Coeff of Nic (11.5-14.5) % Plt Count (130-400) K/uL MPV (7.4-10.4) fL Immature Gran % (Auto) % Neut % (Auto) % Lymph % (Auto) % Dare % (Auto) % Eos % (Auto) % Baso % (Auto) % Neut # (Auto) (1.4-6.5) K/uL Lymph # (Auto) (1.2-3.4) K/uL Dare # (Auto) (0.11-0.59) K/uL Eos # (Auto) (0-0.5) K/uL Baso # (Auto) (0-0.2) K/uL Immature Gran # (Auto) (0.00-0.02) K/uL PT (9.0-12.0) Seconds INR (0.9-1.1) APTT (21.0-31.0) Seconds PTT Ratio Sodium (136-145) mmol/L Potassium (3.5-5.1) mmol/L Chloride (98-107) mmol/L Carbon Dioxide (21-32) mmol/L Anion Gap (3-11) BUN (7-18) mg/dl Creatinine (0.6-1.2) mg/dl Est Cr Clr Drug Dosing ml/min Est GFR ( Amer) ml/min Est GFR (Non-Af Amer) ml/min BUN/Creatinine Ratio (10-20) Glucose (70-99) mg/dl Lactate 2.0 (0.4-2.0) mmol/L Calcium (8.5-10.1) mg/dl Magnesium (1.8-2.4) mg/dl Total Bilirubin (0.2-1) mg/dl AST (15-37) U/L ALT (12-78) Alkaline Phosphatase (45-117) U/L Troponin I (0-0.045) ng/ml Total Protein (6.4-8.2) gm/dl Albumin (3.4-5.0) gm/dl Globulin (2.5-4.0) gm/dl Albumin/Globulin Ratio (0.9-2) Procalcitonin (0-0.5) ng/ml Urine Color Urine Appearance (Clear) Urine pH (4.5-7.5) Ur Specific [place] (1.000-1.030) Urine Protein (Negative) Urine Glucose (UA) (Negative) Urine Ketones (Negative) Urine Blood (Negative) Urine Nitrite (Negative) Urine Bilirubin (Negative) Urine Urobilinogen (Negative) Ur Leukocyte Esterase (Negative) Urine WBC (Auto) (0-5) /hpf Urine RBC (Auto) (0-4) /hpf U Hyaline Cast (Auto) (0-5) /lpf U Epithel Cells (Auto) (0-5) /lpf Urine Bacteria (Auto) (Negative) SARS-CoV-2 (PCR) NEGATIVE (Negative) Influenza Type A (PCR) Negative (Neg) Influenza Type B (PCR) Negative (Neg) RSV (RT-PCR) Negative (Neg) Administered Medications Discontinued Medications Aspirin (Aspirin 81 Mg Ectab) 81 mg PO [facility] Stop: 04/01/21 08:59 Last Admin: 03/05/21 08:29 Dose: 81 mg Documented by: [id number] Admin: 03/04/21 09:11 Dose: 81 mg Documented by: [id number] Admin: 03/03/21 08:47 Dose: 81 mg Documented by: [id number] Admin: 03/02/21 07:42 Dose: 81 mg Documented by: [id number] Atorvastatin Calcium (Atorvastatin 20 Mg Tab) 20 mg PO HS [facility] Stop: 03/31/21 20:59 Last Admin: 03/04/21 20:43 Dose: 20 mg Documented by: [id number] Admin: 03/03/21 21:45 Dose: 20 mg Documented by: [id number] Admin: 03/02/21 20:26 Dose: 20 mg Documented by: [id number] Admin: 03/01/21 21:48 Dose: 20 mg Documented by: [id number] Cetirizine HCl (Cetirizine Hcl 10 Mg Tablet) [address] [facility] Stop: 04/01/21 08:59 Last Admin: 03/05/21 08:29 Dose: 10 mg Documented by: [id number] Admin: 03/04/21 09:11 Dose: 10 mg Documented by: [id number] Admin: 03/03/21 08:47 Dose: 10 mg Documented by: [id number] Admin: 03/02/21 07:43 Dose: 10 mg Documented by: [id number] Clindamycin HCl (Clindamycin Hcl 150 Mg Cap) [address] [facility]; Protocol Stop: 03/11/21 15:59 Last Admin: 03/05/21 13:26 Dose: 450 mg Documented by: [id number] Admin: 03/05/21 08:29 Dose: 450 mg Documented by: [id number] Admin: 03/04/21 20:43 Dose: 450 mg Documented by: [id number] Admin: 03/04/21 17:25 Dose: 450 mg Documented by: [id number] Cyanocobalamin (Cyanocobalamin 500 Mcg Tablet (Vitamin B-12)) 1,000 mcg PO DAILY [facility] Stop: 04/01/21 08:59 Last Admin: 03/05/21 08:29 Dose: 1,000 mcg Documented by: [id number] Admin: 03/04/21 09:11 Dose: 1,000 mcg Documented by: [id number] Admin: 03/03/21 08:47 Dose: 1,000 mcg Documented by: [id number] Admin: 03/02/21 07:44 Dose: 1,000 mcg Documented by: [id number] Diltiazem HCl (Diltiazem Er 180 Mg Capcr) 180 mg PO NOW STA Stop: 03/01/21 17:06 Last Admin: 03/01/21 17:44 Dose: 180 mg Documented by: [id number] Diltiazem HCl (Diltiazem Hcl 180 Mg Capcr) [address] [facility] Stop: 04/01/21 08:59 Last Admin: 03/05/21 08:29 Dose: 180 mg Documented by: [id number] Admin: 03/04/21 09:12 Dose: 180 mg Documented by: [id number] Admin: 03/03/21 08:47 Dose: 180 mg Documented by: [id number] Admin: 03/02/21 07:44 Dose: 180 mg Documented by: [id number] Diphenhydramine HCl (Diphenhydramine 50 Mg/Ml Vial) 25 mg IV NOW STA Stop: 03/01/21 15:31 Last Admin: 03/01/21 15:54 Dose: 25 mg Documented by: [id number] Docusate Sodium (Docusate Sodium 100 Mg Cap) [address] [facility] Stop: 03/31/21 20:59 Last Admin: 03/04/21 20:43 Dose: 200 mg Documented by: [id number] Admin: 03/03/21 21:45 Dose: 200 mg Documented by: [id number] Admin: 03/02/21 20:26 Dose: 200 mg Documented by: [id number] Admin: 03/01/21 21:48 Dose: 200 mg Documented by: [id number] Enoxaparin Sodium (Enoxaparin Inj 40 Mg/0.4 Ml Syr) 40 mg SQ Q12 [facility] Stop: 03/31/21 20:59 Last Admin: 03/05/21 08:30 Dose: 40 mg Documented by: [id number] Admin: 03/04/21 20:43 Dose: 40 mg Documented by: [id number] Admin: 03/04/21 09:12 Dose: 40 mg Documented by: [id number] Admin: 03/03/21 21:46 Dose: 40 mg Documented by: [id number] Admin: 03/03/21 08:48 Dose: 40 mg Documented by: [id number] Admin: 03/02/21 20:26 Dose: 40 mg Documented by: [id number] Admin: 03/02/21 07:45 Dose: 40 mg Documented by: [id number] Admin: 03/01/21 21:48 Dose: 40 mg Documented by: [id number] Sodium Chloride (Nss 1000ml) 500 mls @ 999 mls/hr IV .Q31M ONE Stop: 03/01/21 13:33 Last Infusion: 03/01/21 14:13 Dose: 0 mls/hr Documented by: [id number] Admin: 03/01/21 13:40 Dose: 999 mls/hr Documented by: [id number] Sodium Chloride (Nss 1000ml) 1,000 mls @ 125 mls/hr IV .Q8H [facility] Stop: 03/31/21 13:14 Last Infusion: 03/01/21 16:51 Dose: 0 mls/hr Documented by: [id number] Admin: 03/01/21 13:40 Dose: 125 mls/hr Documented by: [id number] Sodium Chloride (Nss 1000ml) 500 mls @ 999 mls/hr IV .Q31M ONE Stop: 03/01/21 14:58 Last Infusion: 03/01/21 17:45 Dose: 0 mls/hr Documented by: [id number] Admin: 03/01/21 16:51 Dose: 999 mls/hr Documented by: [id number] Acetaminophen (Ofirmev) 1,000 mg in 100 mls @ 400 mls/hr IV NOW STA Stop: 03/01/21 14:42 Last Infusion: 03/01/21 15:17 Dose: 0 mls/hr Documented by: [id number] Admin: 03/01/21 15:01 Dose: 400 mls/hr Documented by: [id number] Meropenem 500 mg/ Syringe 10 mls @ 2 mls/min IV NOW STA; Protocol Stop: 03/01/21 14:50 Last Admin: 03/01/21 16:51 Dose: 2 mls/min Documented by: [id number] Sodium Chloride (Nss 1000ml) 500 mls @ 999 mls/hr IV .Q31M ONE Stop: 03/01/21 16:00 Last Infusion: 03/01/21 17:45 Dose: 0 mls/hr Documented by: [id number] Admin: 03/01/21 16:51 Dose: 999 mls/hr Documented by: [id number] Methylprednisolone 60 mg/ (Syringe) 1.96 mls @ 1.5 mls/min IV NOW STA Stop: 03/01/21 15:34 Last Admin: 03/01/21 15:54 Dose: 1.5 mls/min Documented by: [id number] Meropenem 500 mg/ Syringe 10 mls @ 2 mls/min IV Q6H [facility]; Protocol Stop: 03/08/21 22:59 Last Admin: 03/04/21 12:23 Dose: 2 mls/min Documented by: [id number] Admin: 03/04/21 05:18 Dose: 2 mls/min Documented by: [id number] Admin: 03/03/21 23:04 Dose: 2 mls/min Documented by: [id number] Admin: 03/03/21 16:30 Dose: 2 mls/min Documented by: [id number] Admin: 03/03/21 12:35 Dose: 2 mls/min Documented by: [id number] Admin: 03/03/21 05:45 Dose: 2 mls/min Documented by: [id number] Admin: 03/02/21 23:01 Dose: 2 mls/min Documented by: [id number] Admin: 03/02/21 16:40 Dose: 2 mls/min Documented by: [id number] Admin: 03/02/21 12:24 Dose: 2 mls/min Documented by: [id number] Admin: 03/02/21 05:54 Dose: 2 mls/min Documented by: [id number] Admin: 03/01/21 22:03 Dose: 2 mls/min Documented by: [id number] Sodium Chloride (Nss 1000ml) 1,000 mls @ 100 mls/hr IV .Q10H [facility] Stop: 03/02/21 06:01 Last Infusion: 03/02/21 06:58 Dose: 0 mls/hr Documented by: [id number] Admin: 03/01/21 20:24 Dose: 100 mls/hr Documented by: [id number] Potassium Phosphate 15 mmol/ (Sodium Chloride) 255 mls @ 102 mls/hr IV ONE ONE Stop: 03/02/21 10:59 Last Infusion: 03/02/21 14:41 Dose: 0 mls/hr Documented by: [id number] Admin: 03/02/21 09:20 Dose: 102 mls/hr Documented by: [id number] Insulin Aspart (Insulin Aspart Per Unit) 0 units SC ACHS [facility] Stop: 03/31/21 20:59 Last Admin: 03/03/21 18:14 Dose: Not Given Documented by: [id number] Admin: 03/03/21 12:34 Dose: 14 units Documented by: [id number] Cosigned by: [id number] Admin: 03/03/21 08:49 Dose: 10 units Documented by: [id number] Cosigned by: [id number] Admin: 03/02/21 20:27 Dose: Not Given Documented by: [id number] Cosigned by: [id number] Admin: 03/02/21 17:19 Dose: 11 units Documented by: [id number] Cosigned by: [id number] Admin: 03/02/21 12:23 Dose: 18 units Documented by: [id number] Cosigned by: [id number] Admin: 03/02/21 09:17 Dose: 12 units Documented by: [id number] Cosigned by: [id number] Admin: 03/01/21 21:57 Dose: 8 units Documented by: [id number] Cosigned by: [id number] Insulin Aspart (Insulin Aspart Per Unit) 0 units SC 0000,0400 EVELIO Stop: 03/02/21 04:01 Last Admin: 03/02/21 03:56 Dose: 7 units Documented by: [id number] Cosigned by: [id number] Admin: 03/02/21 00:41 Dose: 7 units Documented by: [id number] Cosigned by: [id number] Insulin Aspart (Insulin Aspart Per Unit) [address] [facility] Stop: 04/02/21 16:29 Last Admin: 03/05/21 12:22 Dose: 11 units Documented by: [id number] Cosigned by: [id number] Admin: 03/05/21 08:25 Dose: 11 units Documented by: [id number] Cosigned by: [id number] Admin: 03/04/21 20:50 Dose: 4 units Documented by: [id number] Cosigned by: [id number] Admin: 03/04/21 17:18 Dose: 13 units Documented by: [id number] Cosigned by: [id number] Admin: 03/04/21 12:19 Dose: 8 units Documented by: [id number] Cosigned by: [id number] Admin: 03/04/21 09:07 Dose: 13 units Documented by: [id number] Cosigned by: [id number] Admin: 03/03/21 21:47 Dose: Not Given Documented by: [id number] Cosigned by: [id number] Admin: 03/03/21 17:15 Dose: 16 units Documented by: [id number] Cosigned by: [id number] Insulin Glargine (Insulin Glargine Solostar 100 Units/Ml 3 Ml Pen) [address] [facility] Stop: 03/31/21 21:44 Last Admin: 03/01/21 22:02 Dose: 60 units Documented by: [id number] Cosigned by: [id number] Insulin Glargine (Insulin Glargine Solostar 100 Units/Ml 3 Ml Pen) [address] [facility] Stop: 04/01/21 20:59 Last Admin: 03/02/21 20:28 Dose: 65 units Documented by: [id number] Cosigned by: [id number] Insulin Glargine (Insulin Glargine Solostar 100 Units/Ml 3 Ml Pen) [address] [facility]; Protocol Stop: 04/01/21 20:59 Last Admin: 03/04/21 20:44 Dose: 65 units Documented by: [id number] Cosigned by: [id number] Admin: 03/03/21 21:46 Dose: 55 units Documented by: [id number] Cosigned by: [id number] Ioversol (Optiray 320 125ml) 112 ml IV ONCE ONE Stop: 03/01/21 15:48 Last Admin: 03/01/21 15:48 Dose: 112 ml Documented by: [id number] Levetiracetam (Levetiracetam 500 Mg Tab) 500 mg PO ONE STA Stop: 03/01/21 17:06 Last Admin: 03/01/21 17:44 Dose: 500 mg Documented by: [id number] Levetiracetam (Levetiracetam 500 Mg Tab) [address] [facility] Stop: 03/31/21 20:59 Last Admin: 03/05/21 08:29 Dose: 500 mg Documented by: [id number] Admin: 03/04/21 20:44 Dose: 500 mg Documented by: [id number] Admin: 03/04/21 09:11 Dose: 500 mg Documented by: [id number] Admin: 03/03/21 21:45 Dose: 500 mg Documented by: [id number] Admin: 03/03/21 08:47 Dose: 500 mg Documented by: [id number] Admin: 03/02/21 20:27 Dose: 500 mg Documented by: [id number] Admin: 03/02/21 07:45 Dose: 500 mg Documented by: [id number] Admin: 03/01/21 21:47 Dose: 500 mg Documented by: [id number] Magnesium Oxide (Magnesium Oxide 400 Mg Tab) [address] [facility] Stop: 04/01/21 08:59 Last Admin: 03/05/21 08:29 Dose: 400 mg Documented by: [id number] Admin: 03/04/21 09:11 Dose: 400 mg Documented by: [id number] Admin: 03/03/21 08:47 Dose: 400 mg Documented by: [id number] Admin: 03/02/21 07:43 Dose: 400 mg Documented by: [id number] Metformin HCl (Metformin Hcl 500 Mg Tab) 1,000 mg PO NOW STA Stop: 03/01/21 17:06 Last Admin: 03/01/21 17:45 Dose: 1,000 mg Documented by: [id number] Methylprednisolone (Methylprednisolone 125 Mg/2 Ml Vial) Confirm Administered Dose 125 mg .ROUTE .STK-MED ONE Stop: 03/01/21 15:36 Last Admin: 03/01/21 15:54 Dose: Not Given Documented by: [id number] Metoprolol Succinate (Metoprolol Succ 50mg Ext Rel Tab) 25 mg PO NOW STA Stop: 03/01/21 17:05 Last Admin: 03/01/21 17:44 Dose: 25 mg Documented by: [id number] Metoprolol Succinate (Metoprolol Succ 25mg Ext Rel Tab) [address] [facility] Stop: 04/01/21 08:59 Last Admin: 03/05/21 08:29 Dose: 25 mg Documented by: [id number] Admin: 03/04/21 09:11 Dose: 25 mg Documented by: [id number] Admin: 03/03/21 08:47 Dose: 25 mg Documented by: [id number] Admin: 03/02/21 07:44 Dose: 25 mg Documented by: [id number] Oxybutynin Chloride (Oxybutynin Chloride 5 Mg Tab) [address] [facility] Stop: 03/31/21 20:59 Last Admin: 03/05/21 08:29 Dose: 5 mg Documented by: [id number] Admin: 03/04/21 20:44 Dose: 5 mg Documented by: [id number] Admin: 03/04/21 09:12 Dose: 5 mg Documented by: [id number] Admin: 03/03/21 21:44 Dose: 5 mg Documented by: [id number] Admin: 03/03/21 08:47 Dose: 5 mg Documented by: [id number] Admin: 03/02/21 20:28 Dose: 5 mg Documented by: [id number] Admin: 03/02/21 07:43 Dose: 5 mg Documented by: [id number] Admin: 03/01/21 21:59 Dose: 5 mg Documented by: [id number] Pantoprazole Sodium (Pantoprazole 40 Mg Tab) 40 mg PO QAM [facility] Stop: 04/01/21 08:59 Last Admin: 03/05/21 08:29 Dose: 40 mg Documented by: [id number] Admin: 03/04/21 09:12 Dose: 40 mg Documented by: [id number] Admin: 03/03/21 08:47 Dose: 40 mg Documented by: [id number] Admin: 03/02/21 07:43 Dose: 40 mg Documented by: [id number] Polyethylene Glycol (Polyethylene (Miralax) 17 Gm Pack) 17 gm PO QAM [facility] Stop: 04/01/21 08:59 Last Admin: 03/05/21 08:28 Dose: 17 gm Documented by: [id number] Admin: 03/04/21 09:11 Dose: 17 gm Documented by: [id number] Admin: 03/03/21 08:48 Dose: 17 gm Documented by: [id number] Admin: 03/02/21 07:45 Dose: 17 gm Documented by: [id number] Pregabalin (Pregabalin 150 Mg Cap) 150 mg PO NOW [facility] Stop: 03/01/21 17:06 Last Admin: 03/01/21 17:45 Dose: 150 mg Documented by: [id number] Pregabalin (Pregabalin 150 Mg Cap) 150 mg PO BID [facility] Stop: 03/31/21 20:59 Last Admin: 03/05/21 08:38 Dose: 150 mg Documented by: [id number] Admin: 03/04/21 20:50 Dose: 150 mg Documented by: [id number] Admin: 03/04/21 09:14 Dose: 150 mg Documented by: [id number] Admin: 03/03/21 21:52 Dose: 150 mg Documented by: [id number] Admin: 03/03/21 08:51 Dose: 150 mg Documented by: [id number] Admin: 03/02/21 20:32 Dose: 150 mg Documented by: [id number] Admin: 03/02/21 07:56 Dose: 150 mg Documented by: [id number] Admin: 03/01/21 22:02 Dose: 150 mg Documented by: [id number] Venlafaxine HCl (Venlafaxine Hcl Xr 150 Mg Capxr) 150 mg PO [facility] Stop: 03/31/21 17:14 Last Admin: 03/01/21 18:14 Dose: 150 mg Documented by: [id number] Venlafaxine HCl (Venlafaxine Hcl Xr 150 Mg Capxr) 150 mg PO [facility] Stop: 04/01/21 08:59 Last Admin: 03/05/21 08:29 Dose: 150 mg Documented by: [id number] Admin: 03/04/21 09:11 Dose: 150 mg Documented by: [id number] Admin: 03/03/21 08:47 Dose: 150 mg Documented by: [id number] Admin: 03/02/21 07:42 Dose: 150 mg Documented by: [id number] Vitamin D (Cholecalciferol 1,000 Units 25 Mcg Tab) 2,000 units PO [facility] Stop: 04/01/21 08:59 Last Admin: 03/05/21 08:29 Dose: 2,000 units Documented by: [id number] Admin: 03/04/21 09:11 Dose: 2,000 units Documented by: [id number] Admin: 03/03/21 08:47 Dose: 2,000 units Documented by: [id number] Admin: 03/02/21 07:43 Dose: 2,000 units Documented by: [id number] Imaging Data Radiologist's Impression: Chest X-Ray 03/01/21 13:02 XR chest 1V portable CLINICAL HISTORY: SEPSIS TECHNIQUE: Single frontal radiograph of the chest was obtained. Comparison: Comparison is made to chest one view 10/06/2020 FINDINGS: No lines and tubes are seen. Cardiomegaly is noted. Right greater than left lower lung predominant opacities are seen. No evidence of pleural effusion or pneumothorax. Redemonstration of hiatal hernia. IMPRESSION: 1. Bilateral lower lung predominant airspace opacities which may represent atelectasis, pneumonia, and/or aspiration. 2. Stable cardiomegaly. ACT 112: Negative or not required by law. Electronically signed by: Luis Rubio M.D. 03/01/2021 1:47 PM Chest CTA 03/01/21 14:29 CT angio chest PE protocol CLINICAL HISTORY: PE, fever, tachycardia, cough TECHNIQUE: Multidetector row helical CT of the chest was performed. Coronal and sagittal reformations were obtained. Coronal and sagittal MIPS were obtained from the axial data set and were submitted for review. Automated dose lowering techniques and/or adjustment according to patient size were utilized for this exam. Comparison: Comparison is made to chest one view 03/01/2021 FINDINGS: Lungs and pleura: There is atelectasis and possibly some consolidative changes in the right lower lobe. Heart and pericardium: Heart size is normal. No pericardial effusion. Vessels: No evidence of pulmonary embolism. Pulmonary trunk measures 35 mm, enlarged. Mediastinum and glen: Unremarkable. Chest wall and lower neck: There is a hypodense left thyroid nodule measuring 23 mm. Abdomen: A large hiatal hernia is seen. Bones: Degenerative changes in the thoracic spine. There is a compression deformity of the T11 vertebral body. IMPRESSION: 1. No evidence of pulmonary embolism. 2. Pulmonary hypertension. 3. Marked atelectasis of the right lung base. Superimposed pneumonia cannot be entirely excluded. ACT 112: Negative or not required by law. Electronically signed by: Luis Rubio M.D. 03/01/2021 4:[address] 03/01/21 15:34 CT head/brain wo con CLINICAL HISTORY: headache Technique: Contiguous axial CT images of the head were acquired from the base of the skull to the vertex without intravenous contrast administration. Images were viewed in brain, subdural and bone windows. Automated dose lowering techniques and/or adjustment according to patient size were utilized for this exam. Comparison: Comparison is made to CT head 10/06/2020 Findings: Areas of decreased attenuation are present in the periventricular and subcortical white matter bilaterally consistent with small vessel ischemic disease. Generalized cerebral atrophy with commensurate enlargement of the ventricles, sulci, and cisterns is also present. There is no acute intracranial hemorrhage or evidence of acute territorial infarction. No shift of the midline structures, mass effect, or extra-axial abnormalities are shown. Atheros clerotic calcifications are present in the intracranial segments of the internal carotid arteries. Vascular coils are seen in the left MCA distribution. There is stable encephalomalacia in the left frontal lobe compatible with old stroke. Imaged portions of the paranasal sinuses and mastoid air cells are clear. The orbits appear normal. There are no acute fractures of the calvaria or scalp swelling. Impression: No acute intracranial hemorrhage, no evidence of acute territorial infarction or other acute intracranial disease process. ACT 112: Negative or not required by law. Electronically signed by: Luis Rubio M.D. 03/01/2021 3:53 PM Blood Pressure Blood Pressure Findings: Elevated blood pressure Blood Pressure Disposition: further management by hospitalist Discharge Plan Visit Data Chief Complaint: Illness Stated Complaint: HEADACHE, NAUSEA, COUGH ED Provider: Mar Pierre Discharge Problem: Hypoxia, Sepsis, Fever Patient Disposition: Admitted As Inpatient Discharge Instructions Interventions: ED Discharge Assessment Last Done: 03/01/21 18:15 Discharge Problem: Sepsis Qualifiers: Sepsis type: sepsis due to unspecified organism Sepsis acute organ dysfunction status: with acute organ dysfunction Severe sepsis acute organ dysfunction type: acute respiratory failure Acute respiratory failure type: with hypoxia Severe sepsis shock status: without septic shock Qualified Code(s): A41.9 - Sepsis, unspecified organism Fever Qualifiers: Fever type: unspecified Qualified Code(s): R50.9 - Fever, unspecified
[2021-03-01] MEDS ORDERED: ACETAMINOPHEN 325 MG TAB PO PRN (20:02)
[2021-03-01] MEDS ORDERED: NITROGLYCERIN SL 0.4 MG/TAB TAB SL PRN (20:02)
[2021-03-01] MEDS ORDERED: PHARMACY GLYCEMIC MGMT CONSULT PRN (20:02)
[2021-03-01] MEDS ORDERED: LORazepam 2 MG/4 ML VIAL IV PRN (20:02)
[2021-03-01] MEDS ORDERED: DEXTROSE 50% 50 ML SYRINGE IV PRN (20:30)
[2021-03-01] MEDS ORDERED: CARBOHYDRATES FOR HYPOGLYCEMIA PO PRN (20:30)
[2021-03-01] MEDS ORDERED: GLUCOSE 40% GEL 15 GM TUBE PO PRN (20:30)
[2021-03-01] MEDS ORDERED: GLUCAGON FOR INJ 1 MG VIAL IM PRN (20:30)
[2021-03-01] MEDS ORDERED: GLUCOSE 10 TABS/TUBE PO PRN (20:30)
[2021-03-01] MEDS ORDERED: levETIRAcetam 500 MG TAB PO SCH (21:00)
[2021-03-01] MEDS ORDERED: INSULIN GLARGINE SOLOSTAR 100 UNITS/ML 3 ML PEN SQ SCH (21:45)
[2021-03-01] MEDS: levETIRAcetam 500 MG TAB PO SCH (21:47)
[2021-03-01] MEDS: ENOXAPARIN INJ 40 MG/0.4 ML SYR SQ SCH (21:48)
[2021-03-01] MEDS: DOCUSATE SODIUM 100 MG CAP PO SCH (21:48)
[2021-03-01] MEDS: ATORVASTATIN 20 MG TAB PO SCH (21:48)
[2021-03-01] MEDS: INSULIN ASPART PER UNIT SC SCH (21:57)
[2021-03-01] MEDS: OXYBUTYNIN CHLORIDE 5 MG TAB PO SCH (21:59)
[2021-03-01] MEDS: PREGABALIN 150 MG CAP PO SCH (22:02)
[2021-03-01] MEDS: MEROPENEM 500 MG in SYRINGE 0 ML IV SCH (22:03)
[2021-03-02] MEDS: INSULIN ASPART PER UNIT SC SCH ×6 (00:41→20:27)
[2021-03-02] MEDS: MEROPENEM 500 MG in SYRINGE 0 ML IV SCH ×4 (05:54→23:01)
--- NOTE | 2021-03-02 06:57 | Hospitalist Progress Note ---
Date of Service March 02, 2021 Assessment & Plan (1) Sepsis: (2) Pneumonia: (3) Hyponatremia: (4) Weakness: (5) Dyslipidemia: (6) Hypertension: (7) T2DM (type 2 diabetes mellitus): Plan: Esthela Kenny is a 75-year-old female with a past medical history of obesity, type 2 diabetes mellitus, seizure, COVID, pseudomonal UTI, sensory ataxia, peripheral neuropathy, epilepsy, hypertension admitted for sepsis likely secondary to pneumonia. Sepsis secondary to pneumonia WBC trended up slightly to 20.28 from 19.23 Received NSS 1.5 L bolus, methylprednisolone, and meropenem in ER -- started on mIVF at 100cc/hr thereafter Lactate elevated to 2.6 on admission, repeat downtrended to 2.0 UA 1+ bacteria -- UCx ordered, Prior UCx on 07/12 with Pseudomonas that was fluoroquinolone resistant Covid negative, Influenza negative, RSV negative -- patient previously Covid + 03/06/2020 Troponin negative CXR showing bilateral lower airspace opacities CTA chest showed marked atelectasis of the right lung base, superimposed p neumonia cannot be excluded. No evidence of PE. MRSA nares negative Blood, urine, sputum cultures ordered and pending Continue meropenem empirically pending further developments/speciations -- consider additional atypical coverage if no improvement on this Trend CBC Weakness PT/OT consulted Hyperlipidemia Continue lovastatin 20 mg at night Hypertension Continue aspirin 81 mg daily Continue diltiazem 180 mg daily Continue metoprolol succinate 25 mg daily Type 2 diabetes mellitus Home Lantus 60 units nightly, aspart 10 units with breakfast, 6 units with lunch, 10 units with dinner TDD 86 units Home metformin on hold Glycemic consult for BSG management/SSI while admitted Anxiety/depression Continue venlafaxine ER 150 mg daily History of seizure Continue Keppra 500 mg BID Seasonal allergies Continue cetirizine 10 mg daily Peripheral neuropathy Continue home pregabalin 150 mg BID CODE STATUS: Conditional code YES to CPR/Meds/Shock. NO intubation/ventilation under any circumstances. Diet: Heart healthy/DM2 Dispo: Med telemetry DVT prophylaxis: Lovenox 40 mg SQ q12h due to weight Admission and Anticipated Discharge Date Admission Date: March 01, 2021 Supervising Physician Co-Signing Physician Notes Patient seen and examined, chart reviewed, case discussed with Dr. Alfonso and I agree with the assessment and plan as above except as otherwise noted General: Fatigued, NAD. Cooperative. HEENT: Atraumatic, normocephalic. PERLAA. Pulm: . Symmetrical chest rise. No increase work of breathing. No respiratory distress. Cardiac: regular, tachycardic, -mrg. Radial pulses intact Abdominal: Nontender, nondistended, soft. BS present. Ext: Warm, dry, intact. All labs and images reviewed Esthela is a 75-year-old female with a past medical history of obesity, type 2 diabetes mellitus, seizure, Covid, pseudomonal UTI, and sensory ataxia who presented with fever, sweats, chills, and cough and was recommended for admission for sepsis with a lactate of 2.6 and leukocytosis. Patient is Covid negative, CT chest pending. Sepsis 2/2 pneumonia Patient with several days of fever, sweats, chills, and cough Leukocytosis to 20. Pro-Galo 0.3; will repeat in AM. Received NSS 1.5 L bolus, methylprednisolone, and meropenem in ER followed by NSS 100 cc/h Patient obese, 115 kg. IBW 48/8 BW 74 kg. Lactate elevated to 2.6 on admission, repeat 2.0 Sodium 134 Creatinine 0.78 Magnesium normal UA 1+ bacteria Covid negative, flu a negative, flu B-, RSV negative Patient previously Covid + 03/06/2020 CXR: Bilateral lower airspace opacities CTA: No evidence of pulmonary embolism. Pulmonary hypertension. Marked atelectasis of the right lung base. Superimposed pneumonia cannot be entirely excluded. CTH:No acute intracranial hemorrhage, no evidence of acute territorial infarction or other acute intracranial disease process. Blood cultures pending Urine culture pending Sputum culture pending On empiric meropenem. Patient with allergies to cephalosporins, penicillins, sulfa. Prior UC 07/12 with Pseudomonas fluoroquinolone resistant, discussed with pharmacy by ER on admission. EKG: Left bundle branch block, QTC 537, QRS 140. Previous EKG with left bundle branch block, QTC 481, QRS 142. Troponin negative. No history of cardiac ischemia per pt and daughter Echo 09/22/2020: Hyperdynamic with mild LVOTO, moderate LVH, grade 1 diastolic dysfunction. -will continue above medications. may consider adding coverage for atypicals. Hyperlipidemia Continue lovastatin 20 mg nightly Hypertension, history of angina - History of heart cath 20 years ago normal, no recent catheterizations. Pt and daughter report no CAD. Continue aspirin 81 mg daily Continue diltiazem 180 mg p.o. every morning Continue metoprolol succinate 25 mg p.o. daily Type 2 diabetes mellitus Home Lantus 60 units nightly, aspart 10 units with breakfast, 6 units with lunc h, 10 units with dinner TDD 86 units Glucose checks AC/at bedtime Hold home metformin, on 2 g [employer] - Continue basal/SSI, slight dose reduction for inpt diet. Given sepsis + steroid load with high requirements glycemic consult placed Anxiety/depression Continue venlafaxine ER 150 mg p.o. every morning History of seizure - Last seizure >1 year ago, no recent activity. 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 Since then doing well on Keppra. Continue Keppra 500 mg p.o. twice daily CODE STATUS: Conditional code. YES to CPR/Meds/Shock. NO intubation/ventilation under any circumstances. Did discuss that if CPR is successful generally requires a temporary breathing tube/ventilation for airway protection stabilization. Pt and daughter aware of this, express and understanding, would like to remain conditional code. Subjective No acute events overnight. Patient seen at bedside this morning and reports feeling significantly better than when she initially came in. She says that her cough, while still present, has definitely improved since she arrived yesterday. She also says she was able to sleep very well throughout the night. Denies fever, chills, nausea, vomiting, chest pain, significant shortness of breath at this time, abdominal pain. She is requiring 2 L nasal cannula to maintain oxygen saturation above 90%. Does not use oxygen at home. Review of Systems Review of Systems: per HPI Physical Exam Physical Exam: GENERAL: A&Ox3. NAD. HEENT: PERRL, EOMI. NECK: No JVD. No lymphadenopathy. CHEST/LUNGS: Diminished lung sounds in both bases, worse on the right. Otherwise clear to auscultation. No crackles, wheezes, rales, rhonchi. HEART: RRR. No m/g/r. ABDOMEN: NT/ND, soft. BS+ x4. EXTREMITIES: No cyanosis, no clubbing, no edema SKIN: Warm and dry. No rashes or lesions. PSYCHIATRIC: Euthymic affect, no SI, no pressured speech, no hallucinations. NEUROLOGIC: Moves all 4 extremities equally. CN II-XII grossly intact. Results & Data Results & Data ([facility]) Vital Signs (Past 12 Hours) Vital Signs Temp Pulse Pulse Resp BP Pulse Ox Pulse Ox 03/02/21 06:35 36.3 C L 82 18 117/69 91 03/02/21 03:35 36.6 C 71 18 112/67 91 03/02/21 01:34 72 03/01/21 23:24 36.4 C L 75 18 121/73 92 03/01/21 23:02 36.5 C 114 H 20 173/86 H 93 03/01/21 20:02 93 03/01/21 19:40 36.5 C 114 H 20 173/86 H 93 Resident Activity Tracking Resident Involvement: Resident Care Provided Care Provided: Adult Hospital Medicine
[2021-03-02 07:01] LABS: Basophils # (auto) 0.01 K/uL (0-0.2); Hematocrit (blood only) 34.3 % (37-47); Hemoglobin 10.6 g/dL (12.0-16.0); Immature Granulocytes # (auto) 0.06 K/uL (0.00-0.02); Immature Granulocytes % (auto) 0.3 %; Lymphocytes # (auto) 1.18 K/uL (1.2-3.4); Lymphocytes % (auto) 5.8 %; Mean Corpuscular Hemoglobin 24.1 pg (25-34); Mean Corpuscular Hgb Conc 30.9 g/dL (32-36); Mean Corpuscular Volume 78.1 fL (80-100); Mean Platelet Volume 9.9 fL (7.4-10.4); Monocytes # (auto) 1.07 K/uL (0.11-0.59); Monocytes % (auto) 5.3 %; Neutrophils # (auto) 17.96 K/uL (1.4-6.5); Neutrophils % (auto) 88.6 %; Platelet Count 308 K/uL (130-400); RDW Coefficient of Variation 17.8 % (11.5-14.5); RDW Standard Deviation 50.5 fL (36.4-46.3); Red Blood Count 4.39 M/uL (4.2-5.4); White Blood Count 20.28 K/uL (4.8-10.8)
[2021-03-02] MEDS: VENLAFAXINE HCL XR 150 MG CAPXR PO SCH (07:42)
[2021-03-02] MEDS: ASPIRIN 81 MG ECTAB PO SCH (07:42)
[2021-03-02] MEDS: OXYBUTYNIN CHLORIDE 5 MG TAB PO SCH ×2 (07:43→20:28)
[2021-03-02] MEDS: CETIRIZINE HCL 10 MG TABLET PO SCH (07:43)
[2021-03-02] MEDS: CHOLECALCIFEROL 1,000 UNITS 25 MCG TAB PO SCH (07:43)
[2021-03-02] MEDS: PANTOprazole 40 MG TAB PO SCH (07:43)
[2021-03-02] MEDS: MAGNESIUM OXIDE 400 MG TAB PO SCH (07:43)
[2021-03-02] MEDS: METOPROLOL SUCC 25MG EXT REL TAB PO SCH (07:44)
[2021-03-02] MEDS: dilTIAZem HCL 180 MG CAPCR PO SCH (07:44)
[2021-03-02] MEDS: CYANOCOBALAMIN 500 MCG TABLET (VITAMIN B-12) PO SCH (07:44)
[2021-03-02 07:45] LABS: BUN Creatinine Ratio 21.7 (10-20); Calcium 8.5 mg/dl (8.5-10.1); Creatinine Clr Calc Pharmacy 89.4 ml/min; Est GFR (African American) 101.4 ml/min; Est GFR (Non-African American) 87.5 ml/min; Phosphorus 2.3 mg/dl (2.5-4.9); Potassium 3.7 mmol/L (3.5-5.1)
[2021-03-02] MEDS: levETIRAcetam 500 MG TAB PO SCH ×2 (07:45→20:27)
[2021-03-02] MEDS: ENOXAPARIN INJ 40 MG/0.4 ML SYR SQ SCH ×2 (07:45→20:26)
[2021-03-02] MEDS: POLYETHYLENE (MIRALAX) 17 GM PACK PO SCH (07:45)
[2021-03-02] MEDS: PREGABALIN 150 MG CAP PO SCH ×2 (07:56→20:32)
[2021-03-02] MEDS ORDERED: POTASSIUM PHOS 3 MMOL/1 ML INFUSION IV STA (08:12)
[2021-03-02] MEDS ORDERED: POTASSIUM PHOSPHATE 15 MMOL in SODIUM CHLORIDE 0.9% 250 ML IV ONE (08:30)
--- NOTE | 2021-03-02 15:16 | Pharmacy Report ---
Pharmacy Glycemic Short Note 2 - Date of Service March 02, 2021 - Glycemic Short BSG Results (Last 24 hours): 03/01/21 03/02/21 03/02/21 20:31 00:09 03:52 Glucose POC Glucose 256 H 231 H 239 H 03/02/21 03/02/21 03/02/21 06:12 07:34 11:49 Glucose 202 H POC Glucose 196 H 194 H OUTPATIENT ANTIDIABETIC REGIMEN: * Metformin 1000 mg PO BID with meals * Lantus 60 units SQ HS * Novolog 10 units with breakfast, 6 units with lunch, 10 units with dinner ASSESSMENT: * 75 y/o F admitted for Pneumonia. Patient has history of Type 2 diabetes managed at home on oral Metformin and SQ basal + bolus insulin. * Holding oral anti-diabetes while admitted. Continued with basal + bolus insulins. * Pt received 60 units of basal insulin last night. Novolog parameters ordered based on wt and stress of 3. * Fasting BSG was 196 mg/dl this AM. Basal insulin increased slightly tonight. * Overnight BSGs were above 200 mg/dl. Novolog CR tightened with breakfast today. PLAN FOR INPATIENT GLYCEMIC CONTROL: * Hold outpatient oral diabetes medications * Basal insulin * Lantus 65 units SQ HS * Bolus insulin * NovoLog per scale ACHS or Q6hrs while NPO * Goal Range: Low 110 mg/dL - High 140 mg/dL * Correction Factor: 15 mg/dL/unit * Nutritional / Prandial insulin per carb ratio of 1 unit per 4.5 grams CHO consumed PLAN FOR DISCHARGE: * TBD
--- NOTE | 2021-03-02 18:03 | Billing Data ---
Date of Service March 02, 2021 Coding Level of Care Code 70859 Subseq Hosp Care Lvl 2
[2021-03-02] MEDS: ATORVASTATIN 20 MG TAB PO SCH (20:26)
[2021-03-02] MEDS: DOCUSATE SODIUM 100 MG CAP PO SCH (20:26)
[2021-03-02] MEDS ORDERED: INSULIN GLARGINE SOLOSTAR 100 UNITS/ML 3 ML PEN SQ SCH (21:00)
--- NOTE | 2021-03-03 05:30 | Electrocardiogram Report ---
Test Reason : Blood Pressure : / mmHG Vent. Rate : 114 BPM Atrial Rate : 113 BPM P-R Int : 000 ms QRS Dur : 140 ms QT Int : 390 ms P-R-T Axes : 000 -23 099 degrees QTc Int : 537 ms Possible Sinus tachycardia Left bundle branch block Abnormal ECG When compared with ECG of 06-OCT-2020 13:14, Vent. rate has increased BY 40 BPM Confirmed by Oneal Smith [id number] on 03/03/2021 5:30:00 AM Referred By: ED Confirmed By:Oneal Smith
[2021-03-03] MEDS: MEROPENEM 500 MG in SYRINGE 0 ML IV SCH ×4 (05:45→23:04)
[2021-03-03 07:26] LABS: Estimated Average Glucose 174 mg/dl; Hemoglobin A1C 7.7 % (4.5-5.6)
[2021-03-03 08:05] LABS: Basophils # (auto) 0.04 K/uL (0-0.2); Basophils % (auto) 0.3 %; Eosinophils # (auto) 0.24 K/uL (0-0.5); Eosinophils % (auto) 1.7 %; Hematocrit (blood only) 34.9 % (37-47); Hemoglobin 10.6 g/dL (12.0-16.0); Immature Granulocytes # (auto) 0.03 K/uL (0.00-0.02); Immature Granulocytes % (auto) 0.2 %; Lymphocytes # (auto) 1.44 K/uL (1.2-3.4); Lymphocytes % (auto) 10.3 %; Mean Corpuscular Hgb Conc 30.4 g/dL (32-36); Mean Corpuscular Volume 79.1 fL (80-100); Mean Platelet Volume 9.8 fL (7.4-10.4); Monocytes # (auto) 1.34 K/uL (0.11-0.59); Monocytes % (auto) 9.5 %; Neutrophils # (auto) 10.95 K/uL (1.4-6.5); Platelet Count 380 K/uL (130-400); RDW Coefficient of Variation 17.9 % (11.5-14.5); RDW Standard Deviation 51.4 fL (36.4-46.3); Red Blood Count 4.41 M/uL (4.2-5.4); White Blood Count 14.04 K/uL (4.8-10.8)
[2021-03-03 08:27] LABS: Calcium 9.1 mg/dl (8.5-10.1); Creatinine Clr Calc Pharmacy 92.9 ml/min; Est GFR (Non-African American) 88.8 ml/min; Potassium 3.6 mmol/L (3.5-5.1)
--- NOTE | 2021-03-03 08:32 | Hospitalist Progress Note ---
Date of Service March 03, 2021 Assessment & Plan (1) Pneumonia: Plan: Esthela Kenny is a 75-year-old female with a past medical history of obesity, type 2 diabetes mellitus, seizure, COVID, pseudomonal UTI, sensory ataxia, peripheral neuropathy, epilepsy, hypertension admitted for sepsis likely secondary to pneumonia. Sepsis secondary to pneumonia Given right sided infiltrate potential for aspiration pneumonia WBC trended down slightly to 14 from 20 Lactate elevated to 2.6 on admission, repeat downtrended to 2.0 UA 1+ bacteria -- UCx ordered, Prior UCx on 07/12 with Pseudomonas that was fluoroquinolone resistant Covid negative, Influenza negative, RSV negative -- patient previously Covid + 03/06/2020 CXR showing bilateral lower airspace opacities CTA chest showed marked atelectasis of the right lung base, superimposed pneumonia cannot be excluded. No evidence of PE. MRSA nares negative Blood culture neg Urine culture with Gardnerella Received NSS 1.5 L bolus, methylprednisolone, and meropenem in ER - Continue meropenem empirically for aspiration pneumonia - consult speech therapy - Trend CBC Weakness PT/OT consulted Hyperlipidemia Continue lovastatin 20 mg at night Hypertension Continue aspirin 81 mg daily Continue diltiazem 180 mg daily Continue metoprolol succinate 25 mg daily Type 2 diabetes mellitus Home Lantus 60 units nightly, aspart 10 units with breakfast, 6 units with lunch, 10 units with dinner TDD 86 units Home metformin on hold Glycemic consult for BSG management/SSI while admitted Anxiety/depression Continue venlafaxine ER 150 mg daily History of seizure Continue Keppra 500 mg BID Seasonal allergies Continue cetirizine 10 mg daily Peripheral neuropathy Continue home pregabalin 150 mg BID CODE STATUS: Conditional code YES to CPR/Meds/Shock. NO intubation/ventilation under any circumstances. Diet: Heart healthy/DM2 Dispo: Med telemetry DVT prophylaxis: Lovenox 40 mg SQ q12h due to weight (2) Pseudomonas urinary tract infection: (3) Morbid obesity with BMI of 50.0-59.9, adult: (4) Sepsis: (5) Fall: (6) T2DM (type 2 diabetes mellitus): Admission and Anticipated Discharge Date Admission Date: March 01, 2021 Supervising Physician Co-Signing Physician Notes Resident Physician Supervision Note: I independently interviewed and examined the patient and verified the coreas history and physical, reviewed labs and image studies and agree with resident Dr. Hall findings and care plan. Subjective No acute events overnight. Patient seen at bedside this morning and reports feeling slightly worse after choking on cereal in the morning.She is requiring 2 L nasal cannula to maintain oxygen saturation above 90%. Does not use oxygen at home. Review of Systems Review of Systems: Constitutional: denies fevers, chills, palpitations GI: denies nausea, vomiting, constipation, diarrhea : denies frequency, urgency, dysuria Physical Exam Constitutional: well developed and well nourished; no acute distress Eyes: PERRL, conjunctivae normal, anicteric sclerae ENMT: external ear and nose normal, oropharynx normal Neck: normal visual inspection Respiratory: normal respiratory effort, lungs clear to auscultation Cardiovascular: RRR, no murmur, no edema Gastrointestinal (Abdomen): normal bowel sounds, soft, nontender, no hepatosplenomegaly Musculoskeletal: no cyanosis or clubbing, extremities motor strength 5/5 Skin: no rashes, warm and dry Neurologic: no focal motor deficits Results & Data Results & Data ([facility]) Vital Signs (Past 12 Hours) Vital Signs Temp Pulse Pulse Resp BP Pulse Ox 03/03/21 07:25 71 03/03/21 07:16 36.8 C 83 20 148/68 H 94 03/03/21 03:38 36.9 C 80 18 146/77 H 93 03/03/21 00:51 67 03/03/21 00:00 36.9 C 69 18 163/73 H 95 CBC Results Results Complete Blood Count Results: RBC 4.41 M/uL (4.2-5.4) 03/03/21 WBC 14.04 K/uL (4.8-10.8) H 03/03/21 Hgb 10.6 g/dL (12.0-16.0) L 03/03/21 Hct 34.9 % (37-47) L 03/03/21 Plt Count 380 K/uL (130-400) 03/03/21 Chemistry (BMP) Results BMP Results: Sodium 141 mmol/L (136-145) 03/03/21 Potassium 3.6 mmol/L (3.5-5.1) 03/03/21 Chloride 106 mmol/L (98-107) 03/03/21 Carbon Dioxide 28 mmol/L (21-32) 03/03/21 Anion Gap 6.0 (3-11) 03/03/21 BUN 18 mg/dl (7-18) 03/03/21 Creatinine 0.62 mg/dl (0.6-1.2) 03/03/21 Glucose 96 mg/dl (70-99) 03/03/21 Resident Activity Tracking Resident Involvement: Resident Care Provided Care Provided: Adult [facility] Medicine
[2021-03-03] MEDS: ASPIRIN 81 MG ECTAB PO SCH (08:47)
[2021-03-03] MEDS: CYANOCOBALAMIN 500 MCG TABLET (VITAMIN B-12) PO SCH (08:47)
[2021-03-03] MEDS: CETIRIZINE HCL 10 MG TABLET PO SCH (08:47)
[2021-03-03] MEDS: MAGNESIUM OXIDE 400 MG TAB PO SCH (08:47)
[2021-03-03] MEDS: PANTOprazole 40 MG TAB PO SCH (08:47)
[2021-03-03] MEDS: CHOLECALCIFEROL 1,000 UNITS 25 MCG TAB PO SCH (08:47)
[2021-03-03] MEDS: dilTIAZem HCL 180 MG CAPCR PO SCH (08:47)
[2021-03-03] MEDS: levETIRAcetam 500 MG TAB PO SCH ×2 (08:47→21:45)
[2021-03-03] MEDS: OXYBUTYNIN CHLORIDE 5 MG TAB PO SCH ×2 (08:47→21:44)
[2021-03-03] MEDS: VENLAFAXINE HCL XR 150 MG CAPXR PO SCH (08:47)
[2021-03-03] MEDS: METOPROLOL SUCC 25MG EXT REL TAB PO SCH (08:47)
[2021-03-03] MEDS: ENOXAPARIN INJ 40 MG/0.4 ML SYR SQ SCH ×2 (08:48→21:46)
[2021-03-03] MEDS: POLYETHYLENE (MIRALAX) 17 GM PACK PO SCH (08:48)
[2021-03-03] MEDS: INSULIN ASPART PER UNIT SC SCH ×5 (08:49→21:47)
[2021-03-03] MEDS: PREGABALIN 150 MG CAP PO SCH ×2 (08:51→21:52)
[2021-03-03] MEDS ORDERED: MICONAZOLE NITRATE POWDER 43 GM EXT PRN (18:54)
[2021-03-03] MEDS: DOCUSATE SODIUM 100 MG CAP PO SCH (21:45)
[2021-03-03] MEDS: ATORVASTATIN 20 MG TAB PO SCH (21:45)
[2021-03-03] MEDS: INSULIN GLARGINE SOLOSTAR 100 UNITS/ML 3 ML PEN SQ SCH (21:46)
[2021-03-04] MEDS: MEROPENEM 500 MG in SYRINGE 0 ML IV SCH ×2 (05:18→12:23)
[2021-03-04 06:19] LABS: Basophils # (auto) 0.05 K/uL (0-0.2); Basophils % (auto) 0.5 %; Eosinophils # (auto) 0.31 K/uL (0-0.5); Hematocrit (blood only) 35.3 % (37-47); Hemoglobin 10.9 g/dL (12.0-16.0); Immature Granulocytes # (auto) 0.02 K/uL (0.00-0.02); Immature Granulocytes % (auto) 0.2 %; Lymphocytes # (auto) 1.48 K/uL (1.2-3.4); Lymphocytes % (auto) 14.5 %; Mean Corpuscular Hemoglobin 24.3 pg (25-34); Mean Corpuscular Hgb Conc 30.9 g/dL (32-36); Mean Corpuscular Volume 78.6 fL (80-100); Mean Platelet Volume 9.8 fL (7.4-10.4); Monocytes # (auto) 1.34 K/uL (0.11-0.59); Monocytes % (auto) 13.2 %; Neutrophils # (auto) 6.99 K/uL (1.4-6.5); Neutrophils % (auto) 68.6 %; Platelet Count 393 K/uL (130-400); RDW Coefficient of Variation 18.3 % (11.5-14.5); RDW Standard Deviation 52.6 fL (36.4-46.3); Red Blood Count 4.49 M/uL (4.2-5.4); White Blood Count 10.19 K/uL (4.8-10.8)
[2021-03-04 06:54] LABS: BUN Creatinine Ratio 25.3 (10-20); Calcium 9.5 mg/dl (8.5-10.1); Creatinine Clr Calc Pharmacy 103.5 ml/min; Est GFR (African American) 106.5 ml/min; Est GFR (Non-African American) 91.9 ml/min; Potassium 3.7 mmol/L (3.5-5.1)
--- NOTE | 2021-03-04 06:58 | Hospitalist Progress Note ---
Date of Service March 04, 2021 Assessment & Plan (1) Pneumonia: Plan: Esthela Kenny is a 75-year-old female with a past medical history of obesity, type 2 diabetes mellitus, seizure, COVID, pseudomonal UTI, sensory ataxia, peripheral neuropathy, epilepsy, hypertension admitted for sepsis likely secondary to pneumonia. Sepsis secondary to pneumonia, improving Lactate 2.6 on admission, repeat downtrended to 2.0 Covid negative, Influenza negative, RSV negative Given right sided infiltrate potential for aspiration pneumonia CTA chest showed marked atelectasis of the right lung base, superimposed pneumonia cannot be excluded. No evidence of PE. MRSA nares negative Blood culture neg Urine culture with Gardnerella Received NSS 1.5 L bolus, methylprednisolone, and meropenem in ER seen by speech therapy and did not feel that she was a high aspiration risk on evaluation - Meropenem transitioned to Clindamycin oral today - Trend CBC Weakness PT/OT consulted with rec. of home with home therapy Hyperlipidemia Continue lovastatin 20 mg at night Hypertension Continue aspirin 81 mg daily Continue diltiazem 180 mg daily Continue metoprolol succinate 25 mg daily Type 2 diabetes mellitus Home Lantus 60 units nightly, aspart 10 units with breakfast, 6 units with lunch, 10 units with dinner TDD 86 units Home metformin on hold Glycemic consult for BSG management/SSI while admitted Anxiety/depression Continue venlafaxine ER 150 mg daily History of seizure Continue Keppra 500 mg BID Seasonal allergies Continue cetirizine 10 mg daily Peripheral neuropathy Continue home pregabalin 150 mg BID CODE STATUS: Conditional code YES to CPR/Meds/Shock. NO intubation/ventilation under any circumstances. Diet: Heart healthy/DM2 Dispo: Med telemetry DVT prophylaxis: Lovenox 40 mg SQ q12h due to weight (2) Pseudomonas urinary tract infection: (3) Morbid obesity with BMI of 50.0-59.9, adult: (4) Sepsis: (5) Fall: (6) T2DM (type 2 diabetes mellitus): Admission and Anticipated Discharge Date Admission Date: March 01, 2021 Supervising Physician Co-Signing Physician Notes Resident Physician Supervision Note: I independently interviewed and examined the patient and verified the coreas history and physical, reviewed labs and image studies and agree with resident Dr. Hall findings and care plan. Subjective Esthela Kenny was doing well today. She was off of oxygen and had no questions or concerns for me today. Review of Systems Review of Systems: Constitutional: denies fevers, chills, palpitations GI: denies nausea, vomiting, constipation, diarrhea : denies frequency, urgency, dysuria Physical Exam Constitutional: well developed and well nourished; no acute distress Eyes: PERRL, conjunctivae normal, anicteric sclerae ENMT: external ear and nose normal, oropharynx normal Neck: normal visual inspection Respiratory: normal respiratory effort, lungs clear to auscultation Cardiovascular: RRR, no murmur, no edema Gastrointestinal (Abdomen): normal bowel sounds, soft, nontender, no hepatosplenomegaly Musculoskeletal: no cyanosis or clubbing, extremities motor strength 5/5 Skin: no rashes, warm and dry Neurologic: no focal motor deficits Results & Data Results & Data ([facility]) Vital Signs (Past 12 Hours) Vital Signs Temp Pulse Pulse Resp BP Pulse Ox 03/04/21 04:00 36.6 C 107 H 18 152/76 H 92 03/04/21 00:40 91 H 03/03/21 23:11 37.0 C 102 H 18 150/71 H 95 03/03/21 20:08 37.1 C 96 H 18 167/75 H 94 CBC Results Results Complete Blood Count Results: RBC 4.49 M/uL (4.2-5.4) 03/04/21 WBC 10.19 K/uL (4.8-10.8) 03/04/21 Hgb 10.9 g/dL (12.0-16.0) L 03/04/21 Hct 35.3 % (37-47) L 03/04/21 Plt Count 393 K/uL (130-400) 03/04/21 Resident Activity Tracking Resident Involvement: Resident Care Provided Care Provided: Adult Hospital Medicine
[2021-03-04] MEDS: INSULIN ASPART PER UNIT SC SCH ×4 (09:07→20:50)
[2021-03-04] MEDS: ASPIRIN 81 MG ECTAB PO SCH (09:11)
[2021-03-04] MEDS: CETIRIZINE HCL 10 MG TABLET PO SCH (09:11)
[2021-03-04] MEDS: CHOLECALCIFEROL 1,000 UNITS 25 MCG TAB PO SCH (09:11)
[2021-03-04] MEDS: VENLAFAXINE HCL XR 150 MG CAPXR PO SCH (09:11)
[2021-03-04] MEDS: MAGNESIUM OXIDE 400 MG TAB PO SCH (09:11)
[2021-03-04] MEDS: METOPROLOL SUCC 25MG EXT REL TAB PO SCH (09:11)
[2021-03-04] MEDS: CYANOCOBALAMIN 500 MCG TABLET (VITAMIN B-12) PO SCH (09:11)
[2021-03-04] MEDS: POLYETHYLENE (MIRALAX) 17 GM PACK PO SCH (09:11)
[2021-03-04] MEDS: levETIRAcetam 500 MG TAB PO SCH ×2 (09:11→20:44)
[2021-03-04] MEDS: OXYBUTYNIN CHLORIDE 5 MG TAB PO SCH ×2 (09:12→20:44)
[2021-03-04] MEDS: PANTOprazole 40 MG TAB PO SCH (09:12)
[2021-03-04] MEDS: ENOXAPARIN INJ 40 MG/0.4 ML SYR SQ SCH ×2 (09:12→20:43)
[2021-03-04] MEDS: dilTIAZem HCL 180 MG CAPCR PO SCH (09:12)
[2021-03-04] MEDS: PREGABALIN 150 MG CAP PO SCH ×2 (09:14→20:50)
[2021-03-04] MEDS: CLINDAMYCIN HCL 150 MG CAP PO SCH ×2 (17:25→20:43)
[2021-03-04] MEDS: DOCUSATE SODIUM 100 MG CAP PO SCH (20:43)
[2021-03-04] MEDS: ATORVASTATIN 20 MG TAB PO SCH (20:43)
[2021-03-04] MEDS: INSULIN GLARGINE SOLOSTAR 100 UNITS/ML 3 ML PEN SQ SCH (20:44)
[2021-03-05 05:57] LABS: Basophils # (auto) 0.05 K/uL (0-0.2); Basophils % (auto) 0.5 %; Eosinophils # (auto) 0.54 K/uL (0-0.5); Eosinophils % (auto) 5.1 %; Hematocrit (blood only) 35.5 % (37-47); Hemoglobin 11.1 g/dL (12.0-16.0); Immature Granulocytes # (auto) 0.05 K/uL (0.00-0.02); Immature Granulocytes % (auto) 0.5 %; Lymphocytes % (auto) 21.8 %; Mean Corpuscular Hemoglobin 24.3 pg (25-34); Mean Corpuscular Hgb Conc 31.3 g/dL (32-36); Mean Corpuscular Volume 77.7 fL (80-100); Mean Platelet Volume 9.5 fL (7.4-10.4); Monocytes # (auto) 1.25 K/uL (0.11-0.59); Monocytes % (auto) 11.9 %; Neutrophils # (auto) 6.34 K/uL (1.4-6.5); Neutrophils % (auto) 60.2 %; Platelet Count 404 K/uL (130-400); RDW Coefficient of Variation 17.8 % (11.5-14.5); RDW Standard Deviation 50.9 fL (36.4-46.3); Red Blood Count 4.57 M/uL (4.2-5.4); White Blood Count 10.53 K/uL (4.8-10.8)
[2021-03-05] MEDS: INSULIN ASPART PER UNIT SC SCH ×2 (08:25→12:22)
[2021-03-05] MEDS: POLYETHYLENE (MIRALAX) 17 GM PACK PO SCH (08:28)
[2021-03-05] MEDS: PANTOprazole 40 MG TAB PO SCH (08:29)
[2021-03-05] MEDS: CYANOCOBALAMIN 500 MCG TABLET (VITAMIN B-12) PO SCH (08:29)
[2021-03-05] MEDS: CETIRIZINE HCL 10 MG TABLET PO SCH (08:29)
[2021-03-05] MEDS: ASPIRIN 81 MG ECTAB PO SCH (08:29)
[2021-03-05] MEDS: OXYBUTYNIN CHLORIDE 5 MG TAB PO SCH (08:29)
[2021-03-05] MEDS: CHOLECALCIFEROL 1,000 UNITS 25 MCG TAB PO SCH (08:29)
[2021-03-05] MEDS: levETIRAcetam 500 MG TAB PO SCH (08:29)
[2021-03-05] MEDS: dilTIAZem HCL 180 MG CAPCR PO SCH (08:29)
[2021-03-05] MEDS: CLINDAMYCIN HCL 150 MG CAP PO SCH ×2 (08:29→13:26)
[2021-03-05] MEDS: METOPROLOL SUCC 25MG EXT REL TAB PO SCH (08:29)
[2021-03-05] MEDS: MAGNESIUM OXIDE 400 MG TAB PO SCH (08:29)
[2021-03-05] MEDS: VENLAFAXINE HCL XR 150 MG CAPXR PO SCH (08:29)
[2021-03-05] MEDS: ENOXAPARIN INJ 40 MG/0.4 ML SYR SQ SCH (08:30)
[2021-03-05] MEDS: PREGABALIN 150 MG CAP PO SCH (08:38)
--- NOTE | 2021-03-05 10:08 | Discharge Summary ---
Date of Service March 05, 2021 Admission HPI Per Admitting Provider Esthela Kenny is a 75-year-old female with a past medical history of obesity, type 2 diabetes mellitus, seizure, COVID, pseudomonal UTI, sensory ataxia, peripheral neuropathy, epilepsy, hypertension. She reports that since yesterday she had been feeling very fatigued and weak, also reported fever, sweats, chills, and cough. She felt short of breath when walking from her bed to the bathroom and at times felt like she would not be able to make it back. She lives alone at home but does have some health aides that come by. Ms. Kenny mention that she had been trying to use her medical alert button but this was not working and her aide ended up calling an ambulance to get her to the hospital. She did report mild abdominal pain earlier, and said that on a prior provider's examination she did have right upper quadrant pain. However, upon my examination she is nontender in all 4 quadrants. She arrived at the ED with a blood pressure of 153/77, tachycardic at 115 bpm, respiratory rate of 22, temperature elevated to 37.8 C, and was found to be hypoxic to 87% on room air. She received normal saline bolus 1.5 L, methylprednisolone 60 mg IV x1, and started on meropenem 500 mg IV due to multiple allergies including penicillins, cephalosporins, and sulfas, among others. She was also given a single dose of acetaminophen 1000 mg. Her lab work is significant for a lactate of 2.6, leukocytosis of 19.3, sodium 134, creatinine of 0.78. She had a CT a of the chest showing atelectasis of the right lung base (superimposed pneumonia cannot be entirely excluded), no evidence of PE. CTA chest showed marked atelectasis of the right lung base, superimposed pneumonia cannot be excluded. No evidence of PE. Head CT was negative for acute intracranial process. Admission Exam Per Admitting Provider GENERAL: A&Ox3. NAD. HEENT: PERRL, EOMI. NECK: No JVD. No lymphadenopathy. CHEST/LUNGS: Diminished lung sounds in both bases, worse on the right. Otherwise clear to auscultation. No crackles, wheezes, rales, rhonchi. HEART: RRR. No m/g/r. ABDOMEN: NT/ND, soft. BS+ x4. EXTREMITIES: No cyanosis, no clubbing, no edema SKIN: Warm and dry. No rashes or lesions. PSYCHIATRIC: Euthymic affect, no SI, no pressured speech, no hallucinations. NEUROLOGIC: Moves all 4 extremities equally. CN II-XII grossly intact. Principal Diagnosis Pneumonia Discharge Exam Constitutional well developed and well nourished; no acute distress Eyes PERRL, conjunctivae normal, anicteric sclerae ENMT external ear and nose normal, oropharynx normal Neck normal visual inspection Respiratory normal respiratory effort, lungs clear to auscultation Cardiovascular RRR, no murmur, no edema Gastrointestinal (Abdomen) normal bowel sounds, soft, nontender, no hepatosplenomegaly Musculoskeletal no cyanosis or clubbing, extremities motor strength 5/5 Skin no rashes, warm and dry Neurologic no focal motor deficits Discharge Data Allergies Allergy/AdvReac Type Severity Reaction Status Date / Time fentanyl Allergy Intermediate HIGH BLOOD Verified 03/01/21 13:05 PRESSURE, SKIN FLUSHED Cephalosporins Allergy Mild RASH Verified 03/01/21 13:05 Penicillins Allergy Mild RASH Verified 03/01/21 13:05 Sulfa (Sulfonamide Allergy Mild ? Verified 03/01/21 13:05 Antibiotics) bee venom protein (honey bee) Allergy Unknown . Verified 03/01/21 13:05 cephalexin Allergy Unknown Rash Verified 03/01/21 13:05 Iodinated Contrast Media Allergy Unknown PASS OUT, Verified 03/01/21 13:05 VOMITING ketorolac Allergy Unknown Unknown Verified 03/01/21 13:05 meperidine Allergy Unknown . Verified 03/01/21 13:05 aspartame Allergy Unknown Verified 03/01/21 13:05 stevioside [From Stevia] Allergy Unknown Verified 03/01/21 13:05 sucralose Allergy Unknown Verified 03/01/21 13:05 codeine AdvReac Mild ALTERED Verified 03/01/21 13:05 MENTAL STATUS morphine AdvReac Unknown Nausea Verified 03/01/21 13:05 Consultations 03/01/21 17:02 ED Decision to Admit Stat Ordered Studies 03/01/21 14:29 CT angio chest PE protocol Stat 03/01/21 15:34 CT head/brain wo con Stat Hospital Course (1) Pneumonia: Esthela Kenny is a 75-year-old female with a past medical history of obesity, type 2 diabetes mellitus, seizure, COVID, pseudomonal UTI, sensory ataxia, peripheral neuropathy, epilepsy, hypertension admitted for sepsis likely secondary to pneumonia improved prior to discharge Pneumonia,improving Initially concerning for aspiration pneumonia vs. CAP seen by speech therapy and was not thought to be a high aspiration risk on evaluation Lactate 2.6 on admission, repeat downtrended to 2.0 COVID negative, Influenza negative, RSV negative CTA chest showed marked atelectasis of the right lung base, superimposed pneumonia cannot be excluded. No evidence of PE. Given right sided infiltrate potential for aspiration pneumonia MRSA nares negative Blood culture neg. Initially treated with Meropenem and converted to Clindamycin - Continue Clindamycin oral to complete course Weakness PT/OT consulted with rec. of home with home therapy Hyperlipidemia Continue lovastatin 20 mg at night Hypertension Continue aspirin 81 mg daily Continue diltiazem 180 mg daily Continue metoprolol succinate 25 mg daily Type 2 diabetes mellitus Restart home medications Anxiety/depression Continue venlafaxine ER 150 mg daily History of seizure Continue Keppra 500 mg BID Seasonal allergies Continue cetirizine 10 mg daily Peripheral neuropathy Continue home pregabalin 150 mg BID Total Time Total Time Spent Total Time Spent (In Minutes): see attending attestation Discharge Plan Discharge Items Patient Disposition: Home - Home Health Services Reason For Visit: SEPSIS SECONDARY TO PNA Discharge Diagnosis: pneumonia Activity: Per Instructions section Non-emergency contact: Primary Care Provider Call non-emergency contact if: your symptoms worsen Follow-up/Referrals: Margarito Al [Primary Care Provider] - (PLEASE CALL YOUR PRIMARY CARE PHYSICIAN TO SCHEDULE A DISCHARGE FOLLOW-UP APPOINTMENT WITHIN 7-10 DAYS.) Diet: Carb Consistent or DM2 Addtl Attending Provider Instructions: Pneumonia: You came to the hospital for pneumonia that improved with antibiotics. You will need to continue your antibiotics as prescribed. You continued to have shortness of breath and low oxygen levels with minimal activity while in the hospital. You will need to follow up with your primary doctor to clarify if this will be needed going forward or if you are able to wean off of oxygen as you continue to improve. The possible causes of you oxygen requirement could be related to your weight as we had discussed or potentially sleep apnea and can be further evaluated by your primary doctor. Follow up: you will need to follow up with your primary care doctor in the next week. Pending Studies at Discharge: Yes Studies:: blood cultures Stand-Alone Forms: [facility], Smoking Cessation Medications and DC Order Prescriptions: New clindamycin HCl 300 mg capsule 300 mg PO TID 2 Days Qty: 6 RF: 0 Continued pregabalin 150 mg capsule 150 mg PO BID 30 Days Qty: 60 RF: 2 metformin 500 mg tablet 1,000 mg PO BIDM 90 Days Qty: 360 RF: 3 atorvastatin 20 mg tablet 20 mg PO HS Qty: 30 RF: 0 cetirizine 10 mg tablet 10 mg PO DAILY RF: 0 cyanocobalamin (vitamin B-12) 1,000 mcg capsule 1,000 mcg PO DAILY Qty: 30 RF: 0 diltiazem HCl 180 mg capsule,extended release 24hr 180 mg PO QAM RF: 0 docusate sodium 100 mg capsule 200 mg PO HS RF: 0 magnesium oxide 400 mg (241.3 mg magnesium) tablet 400 mg PO QAM RF: 0 venlafaxine 150 mg capsule,extended release 24hr 150 mg PO QAM RF: 0 pantoprazole 40 mg tablet,delayed release (DR/EC) 40 mg PO QAM RF: 0 nitroglycerin 0.4 mg tablet, sublingual 0.4 mg SL DIRECTED PRN (Reason: Chest Pain) RF: 0 Lantus Solostar U-100 Insulin 100 unit/mL (3 mL) insulin pen 60 unit subcut HS RF: 0 polyethylene glycol 3350 [Miralax] 17 gram Powder In Packet 17 g PO QAM RF: 0 acetaminophen [Tylenol Extra Strength] 500 mg Tablet 500 mg PO Q6H PRN (Reason: Pain) RF: 0 aspirin [Aspirin Low Dose] 81 mg Tablet,Delayed Release (Dr/Ec) 81 mg PO QAM RF: 0 cholecalciferol (vitamin D3) [Vitamin D3] 50 mcg (2,000 unit) Capsule 2,000 unit PO QAM RF: 0 oxybutynin chloride 5 mg tablet 5 mg PO BID RF: 0 levetiracetam 500 mg tablet 500 mg PO BID RF: 0 metoprolol succinate 25 mg tablet extended release 24 hr 25 mg PO DAILY RF: 0 insulin aspart U-100 [Novolog Flexpen U-100 Insulin] 100 unit/mL (3 mL) insulin pen See Rx Instructions .ROUTE .COMPLEX Qty: 15 RF: 0 Discharge Orders: Discharge Order (Routine); Ordered 03/05/21 Ordered By: Dimitrios Pierce/Other Patient Handouts: Managing Type 2 Diabetes Admission Data Admit Date/Time: 03/01/21 16:55 Attending Provider: Jovana Katz Admit Provider: Akil Espinoza Primary Care Provider: Margarito Al Other Providers: Hamlet Mendoza Other Interventions: Discharge Summary Assessment (RN) Last Done: 03/05/21 14:35 Supervising Physician Co-Signing Physician Notes Resident Physician Supervision Note: I independently interviewed and examined the patient and verified the coreas history and physical, reviewed labs and image studies and agree with resident Dr. Hall findings and care plan.
[2021-03-05 12:46] LABS: BUN Creatinine Ratio 19.6 (10-20); Calcium 9.1 mg/dl (8.5-10.1); Creatinine Clr Calc Pharmacy 101.3 ml/min; Est GFR (African American) 106.5 ml/min; Est GFR (Non-African American) 91.9 ml/min
== END 2021-03-05 16:14 | disposition home health service (06) | DRG 871 ==
LOC: ED 12:40 → SUATTDRO 16:55 → 2N 16:55

== ENCOUNTER 2021-03-14 15:47 | Inpatient (IN) ==
--- NOTE | 2021-03-14 16:28 | Emergency Department Note ---
History of Present Illness General Chief complaint: Fall Stated complaint: LEG PAIN, Time Seen by Provider: 03/14/21 16:03 Source: patient Mode of arrival: EMS Limitations: no limitations History of Present Illness Maximum Pain Intensity: 8 This patient is a 75-year-old female who presents to the emergency department via EMS for evaluation of a fall. The patient states that she got up to go to the bathroom at over 04:00 (12 hours ago) and fell onto her back. She states she is unsure how she fell. She is not sure if she just tripped or was lightheaded/dizzy. She states this has happened to her in the past. She states that she somehow injured her left leg during the fall. She reports that she used her life alert button and EMS arrived, but she refused transport at that time. She has been unable to walk on the left leg throughout the day. She denies much pain at rest but states that she has significant pain when she tries to walk. She rates her discomfort an 8/10. Patient states that she was just recently admitted for pneumonia and discharged home. She wears 2 L of oxygen via nasal cannula at all times at home. She states that she does have home health come to help her at the house, but only during the day. She does not have any family around that is able to help her. Home Medications Medication Instructions Recorded Confirmed Type atorvastatin 20 mg tablet 20 mg PO HS #30 tab 02/09/19 03/14/21 History cetirizine 10 mg tablet 10 mg PO DAILY tab 02/09/19 03/14/21 History cyanocobalamin (vitamin B-12) 1,000 mcg PO DAILY #30 cap 02/09/19 03/14/21 History 1,000 mcg capsule diltiazem HCl 180 mg 180 mg PO QAM cap 02/09/19 03/14/21 History capsule,extended release 24 hr docusate sodium 100 mg capsule 200 mg PO HS cap 02/09/19 03/14/21 History magnesium oxide 400 mg (241.3 mg 400 mg PO QAM tab 02/09/19 03/14/21 History magnesium) tablet nitroglycerin 0.4 mg sublingual 0.4 mg SL DIRECTED PRN tab 02/09/19 03/14/21 History tablet pantoprazole 40 mg tablet,delayed 40 mg PO QAM tab 02/09/19 03/14/21 History release venlafaxine 150 mg 150 mg PO QAM cap 02/09/19 03/14/21 History capsule,extended release 24 hr acetaminophen 500 mg tablet 500 mg PO Q6H PRN 03/01/19 03/14/21 History (Tylenol Extra Strength) polyethylene glycol 3350 17 gram 17 g PO QAM 03/01/19 03/14/21 History oral powder packet (Miralax) aspirin 81 mg tablet,delayed 81 mg PO QAM 11/14/19 03/14/21 History release (Aspirin Low Dose) cholecalciferol (vitamin D3) 50 2,000 unit PO QAM 11/14/19 03/14/21 History mcg (2,000 unit) capsule (Vitamin D3) oxybutynin chloride 5 mg tablet 5 mg PO BID 11/14/19 03/14/21 History pregabalin 150 mg capsule 150 mg PO BID 30 Days #60 cap 12/04/19 03/14/21 Rx levetiracetam 500 mg tablet 500 mg PO BID 02/24/20 03/14/21 History insulin aspart U-100 100 unit/mL See Rx Instructions .ROUTE 07/30/20 03/14/21 Rx (3 mL) subcutaneous pen (Novolog .COMPLEX #15 ml Flexpen U-100 Insulin aspart) metformin 500 mg tablet 1,000 mg PO BIDM 90 Days #360 tab 11/08/20 03/14/21 Rx insulin glargine 100 unit/mL (3 60 unit SUBCUT HS ml 12/11/20 03/14/21 History mL) subcutaneous pen (Lantus Solostar U-100 Insulin) metoprolol succinate 25 mg 25 mg PO DAILY 03/01/21 03/14/21 History tablet,extended release 24 hr Allergies Allergy/AdvReac Type Severity Reaction Status Date / Time fentanyl Allergy Intermediate HIGH BLOOD Verified 03/14/21 17:07 PRESSURE, SKIN FLUSHED Cephalosporins Allergy Mild RASH Verified 03/14/21 17:07 Penicillins Allergy Mild RASH Verified 03/14/21 17:07 Sulfa (Sulfonamide Allergy Mild CAN'T Verified 03/14/21 17:07 Antibiotics) REMEMBER aspartame Allergy Unknown Unknown Verified 03/14/21 17:07 bee venom protein (honey bee) Allergy Unknown CAN'T Verified 03/14/21 17:07 REMEMBER cephalexin Allergy Unknown Rash Verified 03/14/21 17:07 Iodinated Contrast Media Allergy Unknown PASS OUT, Verified 03/14/21 17:07 VOMITING ketorolac Allergy Unknown Unknown Verified 03/14/21 17:07 meperidine Allergy Unknown CAN'T Verified 03/14/21 17:07 REMEMBER stevioside [From Stevia] Allergy Unknown Unknown Verified 03/14/21 17:07 sucralose Allergy Unknown Unknown Verified 03/14/21 17:07 morphine AdvReac Intermediate Nausea Verified 03/14/21 17:07 codeine AdvReac Mild ALTERED Verified 03/14/21 17:07 MENTAL STATUS Past Med/Surg History Medical History HANNAH (acute kidney injury) Anesthesia in both legs Diabetic peripheral neuropathy Dyslipidemia Epilepsy Essential tremor Hypertension Hypoxic Loss of memory Obesity Peripheral neuropathy Sensory ataxia T2DM (type 2 diabetes mellitus) Tremor Vitamin B12 deficiency Vitamin D deficiency Surgical History Hx of cerebral aneurysm repair S/P adenoidectomy S/P cholecystectomy S/P hysterectomy S/P tonsillectomy S/P umbilical hernia repair, follow-up exam Status post tubal ligation Family History Mother Cancer Father Coronary heart disease Social History Smoking Status: Former smoker Hx Alcohol Use: Yes Alcohol type: wine Hx Substance Use: No Preferred Language: Thai Communication Ability: Effective Intake Rn Required: No Beliefs That Will Affect Care: None marital status: / Current Living Situation: Alone Feels Safe at Home: Yes Safety Concerns: Feels Safe At This Time Assistive Devices: Brace/Splint/Immobilizer Review of Systems A total of 10 systems reviewed and were otherwise negative Physical Exam Vital Signs Vital Signs - 24 hr 03/14/21 15:58 03/14/21 16:02 03/14/21 16:11 Temperature 36.7 C Temperature Source Oral Pulse Rate 85 Pulse Rhythm Regular Pulse Strength Normal Respiratory Rate 16 Respiratory Effort / Characteristics Non-Labored Spontaneous Respiratory Depth Normal Blood Pressure 149/74 H Blood Pressure Mean 99 Blood Pressure Position Lying Pulse Oximetry 93 88 L 95 Oxygen Delivery Method Room Air Room Air Nasal Cannula Oxygen Flow Rate 2 Sepsis Recent Fever Within 48 Hours No Sepsis New/Unexplained Change in Mental Status N/A Sepsis Action Taken by Nursing No Action Required VITALS: Vitals are noted on the nurse's note and reviewed by myself. GENERAL: This is a 75-year-old female, sitting up in bed in no significant distress. SKIN: No abrasions or lacerations. No ecchymosis noted. HEAD: Normocephalic atraumatic. EARS: Bilateral hearing aids. EYES: Pupils equal round and reactive to light and accommodation. NOSE: Patent, turbinates without inflammation or discharge. MOUTH: Mucous membranes moist. Tonsils are not enlarged. Pharynx without erythema or exudate. NECK: Supple without nuchal rigidity. No lymphadenopathy. HEART: Regular rate and rhythm without murmurs gallops or rubs. LUNGS: Clear to auscultation bilaterally without wheezes, rales or rhonchi. ABDOMEN: Positive bowel sounds x 4. Soft, nontender. MUSCULOSKELETAL: No obvious deformities noted. There is some vague tenderness to palpation of the left distal femur/knee. Decreased range of motion of the left lower extremity. NEURO: Patient was alert and oriented to person place and time. Distal sensation intact. Course Administered Medications Acetaminophen (Acetaminophen 325 Mg Tab) 650 mg PO Q4H PRN PRN Reason: pain/fever Stop: 04/13/21 21:50 Last Admin: 03/15/21 23:37 Dose: 650 mg Documented by: [id number] Admin: 03/14/21 23:59 Dose: 650 mg Documented by: [id number] Atorvastatin Calcium (Atorvastatin 20 Mg Tab) 20 mg PO HS [facility] Stop: 04/13/21 22:59 Last Admin: 03/15/21 21:06 Dose: 20 mg Documented by: [id number] Admin: 03/14/21 22:57 Dose: 20 mg Documented by: [id number] Cetirizine HCl (Cetirizine Hcl 10 Mg Tablet) 10 mg PO DAILY [facility] Stop: 04/14/21 08:59 Last Admin: 03/16/21 09:01 Dose: 10 mg Documented by: [id number] Admin: 03/15/21 08:10 Dose: 10 mg Documented by: [id number] Cyanocobalamin (Cyanocobalamin 500 Mcg Tablet (Vitamin B-12)) 1,000 mcg PO DAILY [facility] Stop: 04/14/21 08:59 Last Admin: 03/16/21 09:02 Dose: 1,000 mcg Documented by: [id number] Admin: 03/15/21 08:13 Dose: 1,000 mcg Documented by: [id number] Diclofenac Sodium (Diclofenac Sod 1% Gel 100 Gm Tube) 4 gm EXT Q8 [facility] Stop: 04/13/21 22:29 Last Admin: 03/16/21 05:26 Dose: Not Given Documented by: [id number] Admin: 03/15/21 21:07 Dose: 4 gm Documented by: [id number] Admin: 03/15/21 14:12 Dose: Not Given Documented by: [id number] Admin: 03/15/21 06:09 Dose: Not Given Documented by: [id number] Admin: 03/14/21 22:59 Dose: Not Given Documented by: [id number] Diltiazem HCl (Diltiazem Hcl 180 Mg Capcr) [facility] [place] [facility]: 04/14/21 08:59 Last Admin: 03/16/21 09:02 Dose: 180 mg Documented by: [id number] Admin: 03/15/21 08:13 Dose: 180 mg Documented by: [id number] Docusate Sodium (Docusate Sodium 100 Mg Cap) 200 mg PO HS [facility] Stop: 04/13/21 22:59 Last Admin: 03/15/21 21:05 Dose: 200 mg Documented by: [id number] Admin: 03/14/21 22:55 Dose: 200 mg Documented by: [id number] Famotidine (Famotidine 40 Mg Tablet) 40 mg PO QAM [facility] Stop: 04/14/21 08:59 Last Admin: 03/16/21 09:03 Dose: 40 mg Documented by: [id number] Admin: 03/15/21 08:14 Dose: 40 mg Documented by: [id number] Insulin Aspart (Insulin Aspart Per Unit) 0 units SC ACHS [facility] Stop: 04/13/21 20:59 Last Admin: 03/16/21 13:34 Dose: 5 units Documented by: [id number] Cosigned by: [id number] Admin: 03/16/21 09:16 Dose: 6 units Documented by: [id number] Cosigned by: [id number] Admin: 03/15/21 20:54 Dose: 3 units Documented by: [id number] Cosigned by: [id number] Admin: 03/15/21 18:01 Dose: 3 units Documented by: [id number] Cosigned by: [id number] Admin: 03/15/21 14:21 Dose: 6 units Documented by: [id number] Cosigned by: [id number] Admin: 03/15/21 09:02 Dose: 4 units Documented by: [id number] Cosigned by: [id number] Admin: 03/14/21 22:25 Dose: Not Given Documented by: [id number] Insulin Glargine (Insulin Glargine Solostar 100 Units/Ml 3 Ml Pen) 30 units SC BID [facility] Stop: 04/13/21 20:59 Last Admin: 03/16/21 09:03 Dose: 30 units Documented by: [id number] Cosigned by: [id number] Admin: 03/15/21 20:48 Dose: 30 units Documented by: [id number] Cosigned by: [id number] Admin: 03/15/21 09:03 Dose: 30 units Documented by: [id number] Cosigned by: [id number] Admin: 03/14/21 22:49 Dose: 30 units Documented by: [id number] Cosigned by: [id number] Levetiracetam (Levetiracetam 500 Mg Tab) 500 mg PO BID [facility] Stop: 04/13/21 22:59 Last Admin: 03/16/21 09:04 Dose: 500 mg Documented by: [id number] Admin: 03/15/21 21:06 Dose: 500 mg Documented by: [id number] Admin: 03/15/21 08:14 Dose: 500 mg Documented by: [id number] Admin: 03/14/21 22:57 Dose: 500 mg Documented by: [id number] Lidocaine (Lidocaine 5% 1 Patch) 1 patch TD QAM [facility] Stop: 04/14/21 08:59 Last Admin: 03/16/21 09:04 Dose: Not Given Documented by: [id number] Admin: 03/15/21 08:18 Dose: 1 patch Documented by: [id number] Magnesium Oxide (Magnesium Oxide 400 Mg Tab) 400 mg PO QAM [facility] Stop: 04/14/21 08:59 Last Admin: 03/16/21 09:05 Dose: 400 mg Documented by: [id number] Admin: 03/15/21 08:15 Dose: 400 mg Documented by: [id number] Metoprolol Succinate (Metoprolol Succ 25mg Ext Rel Tab) 25 mg PO DAILY [facility] Stop: 04/14/21 08:59 Last Admin: 03/16/21 09:05 Dose: 25 mg Documented by: [id number] Admin: 03/15/21 08:15 Dose: 25 mg Documented by: [id number] Miscellaneous (Remove Lidoderm Patch) 1 ea N/A DAILY@2100 [facility] Stop: 04/14/21 20:59 Last Admin: 03/15/21 21:06 Dose: 1 ea Documented by: [id number] Oxybutynin Chloride (Oxybutynin Chloride 5 Mg Tab) 5 mg PO BID [facility] Stop: 04/13/21 22:59 Last Admin: 03/16/21 09:05 Dose: 5 mg Documented by: [id number] Admin: 03/15/21 21:05 Dose: 5 mg Documented by: [id number] Admin: 03/15/21 08:15 Dose: 5 mg Documented by: [id number] Admin: 03/14/21 22:56 Dose: 5 mg Documented by: [id number] Polyethylene Glycol (Polyethylene (Miralax) 17 Gm Pack) [facility] [place] Stop: 04/14/21 08:59 Last Admin: 03/16/21 09:06 Dose: 17 gm Documented by: [id number] Admin: 03/15/21 08:19 Dose: 17 gm Documented by: [id number] Pregabalin (Pregabalin 150 Mg Cap) 150 mg PO BID [facility] Stop: 04/13/21 22:29 Last Admin: 03/16/21 09:17 Dose: 150 mg Documented by: [id number] Admin: 03/15/21 21:05 Dose: 150 mg Documented by: [id number] Admin: 03/15/21 08:28 Dose: 150 mg Documented by: [id number] Admin: 03/14/21 22:56 Dose: 150 mg Documented by: [id number] Venlafaxine HCl (Venlafaxine Hcl Xr 150 Mg Capxr) 150 mg PO QAM [facility] Stop: 04/14/21 08:59 Last Admin: 03/16/21 09:06 Dose: 150 mg Documented by: [id number] Admin: 03/15/21 08:16 Dose: 150 mg Documented by: [id number] Vitamin D (Cholecalciferol 1,000 Units 25 Mcg Tab) 2,000 units PO QAM [facility] Stop: 04/14/21 08:59 Last Admin: 03/16/21 09:02 Dose: 2,000 units Documented by: [id number] Admin: 03/15/21 08:12 Dose: 2,000 units Documented by: [id number] Discontinued Medications Magnesium Sulfate/Dextrose (Magnesium Sulfate / D5w) 1 gm in 100 mls @ 50 m ls/hr IV Q2H [facility] Stop: 03/14/21 22:36 Last Infusion: 03/15/21 01:58 Dose: 0 mls/hr Documented by: [id number] Admin: 03/14/21 23:54 Dose: 50 mls/hr Documented by: [id number] Magnesium Sulfate/Dextrose (Magnesium Sulfate / D5w) 1 gm in 100 mls @ 50 mls/hr IV Q2H [facility] Stop: 03/15/21 07:59 Last Infusion: 03/15/21 19:14 Dose: 0 mls/hr Documented by: [id number] Admin: 03/15/21 05:49 Dose: 50 mls/hr Documented by: [id number] Infusion: 03/15/21 05:49 Dose: 50 mls/hr Documented by: [id number] Admin: 03/15/21 03:52 Dose: 50 mls/hr Documented by: [id number] Medical Decision Making Differential Diagnosis Fracture, subluxation, dislocation, contusion, ligamentous injury, neurovascular, compartment syndrome, rhabdomyolysis, as well as other pathologies. Home Medications Current Medication List: was personally reviewed by me Laboratory Data Attestation: I reviewed the patient's lab results. Result diagrams: 03/15/21 08:19 03/15/21 08:19 Lab Results 03/14/21 03/14/21 03/14/21 Range/Units 16:43 16:43 16:43 WBC 11.16 H (4.8-10.8) K/uL RBC 4.52 (4.2-5.4) M/uL Hgb 10.8 L (12.0-16.0) g/dL Hct 35.9 L (37-47) % MCV 79.4 L (80-100) fL MCH 23.9 L (25-34) pg MCHC 30.1 L (32-36) g/dL RDW Std Deviation 52.3 H (36.4-46.3) fL RDW Coeff of Nic 18.0 H (11.5-14.5) % Plt Count 467 H (130-400) K/uL MPV 9.3 (7.4-10.4) fL Immature Gran % (Auto) 0.2 % Neut % (Auto) 66.4 % Lymph % (Auto) 17.9 % [place] % (Auto) 7.3 % Eos % (Auto) 7.7 % Baso % (Auto) 0.5 % Neut # (Auto) 7.41 H (1.4-6.5) K/uL Lymph # (Auto) 2.00 (1.2-3.4) K/uL [place] # (Auto) 0.81 H (0.11-0.59) K/uL Eos # (Auto) 0.86 H (0-0.5) K/uL Baso # (Auto) 0.06 (0-0.2) K/uL Immature Gran # (Auto) 0.02 (0.00-0.02) K/uL Sodium 140 (136-145) mmol/L Potassium 4.2 (3.5-5.1) mmol/L Chloride 105 (98-107) mmol/L Carbon Dioxide 28 (21-32) mmol/L Anion Gap 7 (3-11) BUN 11 (6-23) mg/dl Creatinine 0.62 (0.6-1.2) mg/dl Est Cr Clr Drug Dosing 93.9 ml/min Est GFR ( Amer) 103.0 ml/min Est GFR (Non-Af Amer) 88.8 ml/min BUN/Creatinine Ratio 17.7 (10-20) Glucose 185 H (70-99(Fasting)) mg/dl POC Glucose (70-99) mg/dl Calcium 8.8 (8.5-10.1) mg/dl Magnesium 1.5 L (1.7-2.4) mg/dl Total Bilirubin 0.3 (0.2-1.0) mg/dl AST 12 L (13-39) U/L ALT 9 (7-52) U/L Alkaline Phosphatase 98 (34-104) U/L Total Creatine Kinase 24 L (26-192) U/L Total Protein 6.4 (6.0-8.3) gm/dl Albumin 3.2 L (3.4-5.0) gm/dl Globulin 3.2 (2.5-4.0) gm/dl Albumin/Globulin Ratio 1.0 (0.9-2) SARS-CoV-2, RNA, NAAT (NEGATIVE) 03/14/21 03/14/21 Range/Units 19:48 20:37 WBC (4.8-10.8) K/uL RBC (4.2-5.4) M/uL Hgb (12.0-16.0) g/dL Hct (37-47) % MCV (80-100) fL MCH (25-34) pg MCHC (32-36) g/dL RDW Std Deviation (36.4-46.3) fL RDW Coeff of Nic (11.5-14.5) % Plt Count (130-400) K/uL MPV (7.4-10.4) fL Immature Gran % (Auto) % Neut % (Auto) % Lymph % (Auto) % [place] % (Auto) % Eos % (Auto) % Baso % (Auto) % Neut # (Auto) (1.4-6.5) K/uL Lymph # (Auto) (1.2-3.4) K/uL [place] # (Auto) (0.11-0.59) K/uL Eos # (Auto) (0-0.5) K/uL Baso # (Auto) (0-0.2) K/uL Immature Gran # (Auto) (0.00-0.02) K/uL Sodium (136-145) mmol/L Potassium (3.5-5.1) mmol/L Chloride (98-107) mmol/L Carbon Dioxide (21-32) mmol/L Anion Gap (3-11) BUN (6-23) mg/dl Creatinine (0.6-1.2) mg/dl Est Cr Clr Drug Dosing ml/min Est GFR ( Amer) ml/min Est GFR (Non-Af Amer) ml/min BUN/Creatinine Ratio (10-20) Glucose (70-99(Fasting)) mg/dl POC Glucose 109 H (70-99) mg/dl Calcium (8.5-10.1) mg/dl Magnesium (1.7-2.4) mg/dl Total Bilirubin (0.2-1.0) mg/dl AST (13-39) U/L ALT (7-52) U/L Alkaline Phosphatase (34-104) U/L Total Creatine Kinase (26-192) U/L Total Protein (6.0-8.3) gm/dl Albumin (3.4-5.0) gm/dl Globulin (2.5-4.0) gm/dl Albumin/Globulin Ratio (0.9-2) SARS-CoV-2, RNA, NAAT NEGATIVE (NEGATIVE) Imaging Data Attestation: I personally reviewed and interpreted this imaging study as follows: Radiologist's Impression: XR chest 1V portable CLINICAL HISTORY: weakness, fall COMPARISON STUDY: Chest radiograph and chest CT March 01, 2021. FINDINGS: There is no pneumothorax or pleural effusion. A hiatal hernia is noted. Cardiomegaly is noted. There is no evidence for pulmonary edema. Right basilar opacity is again noted. This is either unchanged or slightly improved s enrique prior examination. Left lung is clear. IMPRESSION: 1. Persistent right basilar opacity, mildly improved since prior exam. Continue radiographic follow-up to ensure complete resolution is recommended. 2. Cardiomegaly without evidence for pulmonary edema. 3. Hiatal hernia. XR femur LT 2V routine CLINICAL HISTORY: fall, left leg pain COMPARISON: CT of the left hip and left hip radiographs September 21, 2020. FINDINGS: No definite acute fracture within the left femur is noted. Alignment of the left hip and left knee appears anatomic. Left knee joint effusion is note d. There is cortical irregularity of the medial femoral condyle. In addition, there is a lucency within the patella. IMPRESSION: 1. Cortical irregularity of the left medial femoral condyle. This is probably artifactual however an acute fracture cannot be completely excluded. 2. Lucency within the patella. Again, artifact is favored however a nondisplaced fracture could appear similar. CT of the left knee could be obtained for further evaluation. 3. Moderate size left knee joint effusion. XR pelvis 1-2V routine CLINICAL HISTORY: Left leg pain following fall. COMPARISON: CT of the left hip and left hip radiographs September 21, 2020. FINDINGS: Sacroiliac joints and symphysis pubis are intact. There is no acute fracture within the pelvis or hips. Pelvic calcifications favor phleboliths. IMPRESSION: No acute fracture within the pelvis or hips. CT OF THE LEFT KNEE WITHOUT CONTRAST CLINICAL HISTORY: left knee injury, possible fx COMPARISON STUDY: Left knee radiographs September 21, 2020 and March 14, 2021. TECHNIQUE: Axial images of the left knee were obtained without IV contrast. Sagittal and coronal reconstructions were viewed. Automated exposure control was utilized for the study. A dose lowering technique was utilized adhering to the principles of ALARA. FINDINGS: A moderate size left knee joint effusion is noted. There is no l ipohemarthrosis. A few bone fragments along the medial femoral condyle measure up to 8 mm. These suggest avulsed bone fragments. No additional fractures are identified on this examination. There is mild left knee osteophytosis. Mild medial compartment joint space narrowing of the left knee is noted. No soft tissue gas is present. There is moderate vascular calcification. IMPRESSION: 1. A few bone fragments along the medial femoral condyle which correspond to the finding on radiographs. These represent small avulsed bone fragments and may be acute. These could be seen in the setting of MCL injury. 2. Moderate-sized left knee joint effusion. MDM Narrative Continuous classroom monitor: Order was placed for continuous classroom monitor. Patient was placed on the classroom monitor. Patient was noted to be in normal sinus rhythm at an initial rate of 70 bpm. The patient is a 75-year-old female who presents today complaining of left knee pain and inability to walk after a fall. Labs revealed a mild leukocytosis and mild anemia which appears to be baseline for the patient. No concerning electrolyte abnormalities. Knee x-rays were concerning for a possible cortical irregularity of the medial femoral condyle. A CT scan of the knee was performed and did show some avulsion fractures suggesting a possible MCL injury. This would explain the patient's symptoms and inability to ambulate. Unfortunately, patient lives at home without much help from family and I do not feel she can safely be discharged at this time. She will likely need placement at a rehab facility or snf facility. Patient was agreeable with the plan. She was placed in a knee immobilizer and the hospitalist group was consulted to evaluate the patient for further care. Attending Attestation: Veronica Hylton MD independently saw and evaluated this patient and agree with history and physical is otherwise documented by the physician retail sales assistant. See their note for full details. Patient resting in bed with swelling/effusion of the Left knee and medial knee tenderness. Xrays reviewed and CT of knee ordered given question of fracture. Appears MCL injury. Lives by herself with only care assist during day. Given mobility issues hospitalist to evaluate for observation here. Impression & Plan Fall, Ambulatory dysfunction, Injury of knee, left Discharge Plan Visit Data Chief Complaint: Fall Stated Complaint: LEG PAIN, ED Provider: Toni Hylton ED Midlevel Provider: Bella Hedrick Discharge Problem: Fall, Ambulatory dysfunction, Injury of knee, left Patient Disposition: Admitted As Inpatient Discharge Instructions Interventions: ED Discharge Assessment Last Done: 03/14/21 21:34 Discharge Problem: Fall Qualifiers: Encounter type: initial encounter Qualified Code(s): W19.XXXA - Unspecified fall, initial encounter Injury of knee, left Qualifiers: Encounter type: initial encounter Qualified Code(s): S89.92XA - Unspecified injury of left lower leg, initial encounter
[2021-03-14 17:10] LABS: Basophils # (auto) 0.06 K/uL (0-0.2); Basophils % (auto) 0.5 %; Eosinophils # (auto) 0.86 K/uL (0-0.5); Eosinophils % (auto) 7.7 %; Hematocrit (blood only) 35.9 % (37-47); Hemoglobin 10.8 g/dL (12.0-16.0); Immature Granulocytes # (auto) 0.02 K/uL (0.00-0.02); Immature Granulocytes % (auto) 0.2 %; Lymphocytes % (auto) 17.9 %; Mean Corpuscular Hemoglobin 23.9 pg (25-34); Mean Corpuscular Hgb Conc 30.1 g/dL (32-36); Mean Corpuscular Volume 79.4 fL (80-100); Mean Platelet Volume 9.3 fL (7.4-10.4); Monocytes # (auto) 0.81 K/uL (0.11-0.59); Monocytes % (auto) 7.3 %; Neutrophils # (auto) 7.41 K/uL (1.4-6.5); Neutrophils % (auto) 66.4 %; Platelet Count 467 K/uL (130-400); RDW Standard Deviation 52.3 fL (36.4-46.3); Red Blood Count 4.52 M/uL (4.2-5.4); White Blood Count 11.16 K/uL (4.8-10.8)
[2021-03-14 17:21] LABS: Albumin Level 3.2 gm/dl (3.4-5.0); BUN Creatinine Ratio 17.7 (10-20); Bilirubin,Total 0.3 mg/dl (0.2-1.0); Calcium 8.8 mg/dl (8.5-10.1); Creatinine Clr Calc Pharmacy 93.9 ml/min; Est GFR (Non-African American) 88.8 ml/min; Globulin 3.2 gm/dl (2.5-4.0); Magnesium 1.5 mg/dl (1.7-2.4); Potassium 4.2 mmol/L (3.5-5.1); Total Protein 6.4 gm/dl (6.0-8.3)
--- NOTE | 2021-03-14 17:49 | XRay Report ---
XR pelvis 1-2V routine CLINICAL HISTORY: Left leg pain following fall. COMPARISON: CT of the left hip and left hip radiographs September 21, 2020. FINDINGS: Sacroiliac joints and symphysis pubis are intact. There is no acute fracture within the pe lvis or hips. Pelvic calcifications favor phleboliths. IMPRESSION: No acute fracture within the pelvis or hips. ACT 112: Negative or not required by law. Electronically signed by: Alejo No M.D. 03/14/2021 5:47 PM
--- NOTE | 2021-03-14 17:52 | XRay Report ---
XR femur LT 2V routine CLINICAL HISTORY: fall, left leg pain COMPARISON: CT of the left hip and left hip radiographs September 21, 2020. FINDINGS: No definite acute fracture within the left femur is noted. Alignment of the left hip and l eft knee appears anatomic. Left knee joint effusion is noted. There is cortical irregularity of the m edial femoral condyle. In addition, there is a lucency within the patella. IMPRESSION: 1. Cortical irregularity of the left medial femoral condyle. This is probably artifactual however an acute fracture cannot be completely excluded. 2. Lucency within the patella. Again, artifact is favored however a nondisplaced fracture could appea r similar. CT of the left knee could be obtained for further evaluation. 3. Moderate size left knee joint effusion. ACT 112: Negative or not required by law. Electronically signed by: Alejo No M.D. 03/14/2021 5:51 PM
--- NOTE | 2021-03-14 17:53 | XRay Report ---
XR knee LT 3V CLINICAL HISTORY: fall, knee pain COMPARISON: None FINDINGS: There is cortical irregularity of the left medial femoral condyle. A moderate-sized left k nee joint effusion is noted without lipohemarthrosis. There is a lucency within the patella. IMPRESSION: 1. Cortical irregularity of the left medial femoral condyle. This is probably artifactual however an acute fracture cannot be completely excluded. 2. Lucency within the patella. Again, artifact is favored however a nondisplaced fracture could appea r similar. CT of the left knee could be obtained for further evaluation. 3. Moderate size left knee joint effusion. ACT 112: Negative or not required by law. Electronically signed by: Alejo No M.D. 03/14/2021 5:52 PM
--- NOTE | 2021-03-14 17:55 | XRay Report ---
XR chest 1V portable CLINICAL HISTORY: weakness, fall COMPARISON STUDY: Chest radiograph and chest CT March 01, 2021. FINDINGS: There is no pneumothorax or pleural effusion. A hiatal hernia is noted. Cardiomegaly is not ed. There is no evidence for pulmonary edema. Right basilar opacity is again noted. This is either un changed or slightly improved since prior examination. Left lung is clear. IMPRESSION: 1. Persistent right basilar opacity, mildly improved since prior exam. Continue radiographic follow-u p to ensure complete resolution is recommended. 2. Cardiomegaly without evidence for pulmonary edema. 3. Hiatal hernia. ACT 112: Negative or not required by law. Electronically signed by: Alejo No M.D. 03/14/2021 5:53 PM
--- NOTE | 2021-03-14 19:08 | CT Scan Report ---
CT OF THE LEFT KNEE WITHOUT CONTRAST CLINICAL HISTORY: left knee injury, possible fx COMPARISON STUDY: Left knee radiographs September 21, 2020 and March 14, 2021. TECHNIQUE: Axial images of the left knee were obtained without IV contrast. Sagittal and coronal nallely nstructions were viewed. Automated exposure control was utilized for the study. A dose lowering tech nique was utilized adhering to the principles of ALARA. FINDINGS: A moderate size left knee joint effusion is noted. There is no lipohemarthrosis. A few bone fragments along the medial femoral condyle measure up to 8 mm. These suggest avulsed bone fragments. No additional fractures are identified on this examination. There is mild left knee osteophytosis. M ild medial compartment joint space narrowing of the left knee is noted. No soft tissue gas is present . There is moderate vascular calcification. IMPRESSION: 1. A few bone fragments along the medial femoral condyle which correspond to the finding on radiograp hs. These represent small avulsed bone fragments and may be acute. These could be seen in the setting of MCL injury. 2. Moderate-sized left knee joint effusion. ACT 112: Negative or not required by law. Electronically signed by: Alejo No M.D. 03/14/2021 7:07 PM
[2021-03-14] MEDS ORDERED: MAGNESIUM SULFATE / D5W 1 GM/100 ML BAG IV STA (20:37)
--- NOTE | 2021-03-14 21:38 | History & Physical Report ---
Date of Service March 14, 2021 Assessment & Plan (1) Ambulatory dysfunction: (2) T2DM (type 2 diabetes mellitus): (3) Hypertension: (4) Seizure: (5) Knee pain: Plan: 75 yo F Hx DM2, cerebral aneurysm s/p repair, HTN, dementia, seizures admitted for deconditioning and fall with left knee injury. Fall, left knee injury: Presents following a fall with unclear circumstances. Patient is alert and oriented at this time. Given fall on antiplatelet agents will order CT Head. Has a history of falls in the past. Suspect general deconditioning leading to fall. No other findings on labwork to suggest a metabolic or infectious reason for fall. CT left knee suggests MCL injury; patent placed in knee immobilizer. Consider Ortho evaluation; suspect not likely to perform intervention given comorbidities, age, obesity. While patient has services at home during the day, she had her fall in the middle of the night. PT and OT ordered to evaluate for ambulatory function, and help with ultimate dispo planning. Suspect need for acute rehab vs. SNF based on PT and OT recommendations to assist with conditioning and strengthening. DM2: Basal/bolus insulin initiated. DM2 diet. Hypomagnesemia: Presented with Mg 1.5. Mg Sulfate 4g IV ordered; repeat Mg in AM. HTN: Continue metoprolol and diltiazem. No history of AFib in chart. Patient's HR NSR in ER. Follow HR and BP while admitted. Seizure disorder: Continue Keppra. GERD: Discontinue PPI in favor of famotidine given hypoMg. Code Status: Conditional Code, no intubation, all other interventions okay FEN: DM2 diet, Mg repleted as above DVT ppx: SCDs until CT Head evaluated Dispo: Med/Surg History of Present Illness Chief Complaint: fall, left knee pain Primary Care Provider: Margarito Al 75 yo F Hx DM2, cerebral aneurysm s/p repair, HTN, dementia, seizures presented to the ER for weakness and left knee pain following a fall under uncertain circumstances earlier today. She reports not feeling unwell over the last several weeks, and denies SOB, chest pain, diarrhea, nausea, fevers. She lives alone, and has aids that come into the house from 9-5 every day. Her fall (she thinks) occurred in the pharmacology associate around 4am, and she used her [employer] button. She states that falls like this have happened to her in the past. She refused transport to ER at time of EMS arrival. However, her pain has worsened throughout the day, and has been unable to ambulate as a result. She wears 2 L of oxygen via nasal cannula at all times at home. In the ER patient noted to have Mg 1.5, WBC count 11.16, Hgb stable at 10.8. had left knee imaging that showed some small bony fragments and moderate sized joint effusion consistent with MCL injury. Hospitalist service was consulted for further evaluation and fall and for dispo planning/evaluation by PT and OT. Allergies Allergy/AdvReac Type Severity Reaction Status Date / Time fentanyl Allergy Intermediate HIGH BLOOD Verified 03/14/21 17:07 PRESSURE, SKIN FLUSHED Cephalosporins Allergy Mild RASH Verified 03/14/21 17:07 Penicillins Allergy Mild RASH Verified 03/14/21 17:07 Sulfa (Sulfonamide Allergy Mild CAN'T Verified 03/14/21 17:07 Antibiotics) REMEMBER aspartame Allergy Unknown Unknown Verified 03/14/21 17:07 bee venom protein (honey bee) Allergy Unknown CAN'T Verified 03/14/21 17:07 REMEMBER cephalexin Allergy Unknown Rash Verified 03/14/21 17:07 Iodinated Contrast Media Allergy Unknown PASS OUT, Verified 03/14/21 17:07 VOMITING ketorolac Allergy Unknown Unknown Verified 03/14/21 17:07 meperidine Allergy Unknown CAN'T Verified 03/14/21 17:07 REMEMBER stevioside [From Stevia] Allergy Unknown Unknown Verified 03/14/21 17:07 sucralose Allergy Unknown Unknown Verified 03/14/21 17:07 morphine AdvReac Intermediate Nausea Verified 03/14/21 17:07 codeine AdvReac Mild ALTERED Verified 03/14/21 17:07 MENTAL STATUS Home Medications Medication Instructions Recorded Confirmed Type atorvastatin 20 mg tablet 20 mg PO HS #30 tab 02/09/19 03/14/21 History cetirizine 10 mg tablet 10 mg PO DAILY tab 02/09/19 03/14/21 History cyanocobalamin (vitamin B-12) 1,000 mcg PO DAILY #30 cap 02/09/19 03/14/21 History 1,000 mcg capsule diltiazem HCl 180 mg 180 mg PO QAM cap 02/09/19 03/14/21 History capsule,extended release 24 hr docusate sodium 100 mg capsule 200 mg PO HS cap 02/09/19 03/14/21 History magnesium oxide 400 mg (241.3 mg 400 mg PO QAM tab 02/09/19 03/14/21 History magnesium) tablet nitroglycerin 0.4 mg sublingual 0.4 mg SL DIRECTED PRN tab 02/09/19 03/14/21 History tablet pantoprazole 40 mg tablet,delayed 40 mg PO QAM tab 02/09/19 03/14/21 History release venlafaxine 150 mg 150 mg PO QAM cap 02/09/19 03/14/21 History capsule,extended release 24 hr acetaminophen 500 mg tablet 500 mg PO Q6H PRN 03/01/19 03/14/21 History (Tylenol Extra Strength) polyethylene glycol 3350 17 gram 17 g PO QAM 03/01/19 03/14/21 History oral powder packet (Miralax) aspirin 81 mg tablet,delayed 81 mg PO QAM 11/14/19 03/14/21 History release (Aspirin Low Dose) cholecalciferol (vitamin D3) 50 2,000 unit PO QAM 11/14/19 03/14/21 History mcg (2,000 unit) capsule (Vitamin D3) oxybutynin chloride 5 mg tablet 5 mg PO BID 11/14/19 03/14/21 History pregabalin 150 mg capsule 150 mg PO BID 30 Days #60 cap 12/04/19 03/14/21 Rx levetiracetam 500 mg tablet 500 mg PO BID 02/24/20 03/14/21 History insulin aspart U-100 100 unit/mL See Rx Instructions .ROUTE 07/30/20 03/14/21 Rx (3 mL) subcutaneous pen (Novolog .COMPLEX #15 ml Flexpen U-100 Insulin aspart) metformin 500 mg tablet 1,000 mg PO BIDM 90 Days #360 tab 11/08/20 03/14/21 Rx insulin glargine 100 unit/mL (3 60 unit SUBCUT HS ml 12/11/20 03/14/21 History mL) subcutaneous pen (Lantus Solostar U-100 Insulin) metoprolol succinate 25 mg 25 mg PO DAILY 03/01/21 03/14/21 History tablet,extended release 24 hr Past Med/Surg History Medical History HANNAH (acute kidney injury) Anesthesia in both legs Diabetic peripheral neuropathy Dyslipidemia Epilepsy Essential tremor Hypertension Hypoxic Loss of memory Obesity Peripheral neuropathy Sensory ataxia T2DM (type 2 diabetes mellitus) Tremor Vitamin B12 deficiency Vitamin D deficiency Surgical History Hx of cerebral aneurysm repair S/P adenoidectomy S/P cholecystectomy S/P hysterectomy S/P tonsillectomy S/P umbilical hernia repair, follow-up exam Status post tubal ligation Family History Mother Cancer Father Coronary heart disease Social History Smoking Status: Former smoker Hx Alcohol Use: Yes Alcohol type: wine Hx Substance Use: No Preferred Language: Syrian Communication Ability: Effective Parts 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 Manager Required: No Beliefs That Will Affect Care: None marital status: / Current Living Situation: Alone Feels Safe at Home: Yes Safety Concerns: Feels Safe At This Time Assistive Devices: Brace/Splint/Immobilizer, Hearing Aid - Bilateral and Oxygen - at Night Review of Systems Review of Systems: All systems reviewed & are unremarkable except as noted in HPI & below Constitutional: no fever, no chills and no malaise Respiratory: no cough and no dyspnea Cardiovascular: no chest pain, no palpitations and no edema Gastrointestinal: no abdominal pain, no constipation and no diarrhea/loose st ools Genitourinary: no dysuria and no hematuria Physical Exam Constitutional: WD/WN, vitals as above Eyes: PERRL, conjunctivae normal, anicteric sclerae ENMT: external ear and nose normal, oropharynx normal Neck: normal visual inspection Respiratory: normal respiratory effort, lungs clear to auscultation Cardiovascular: RRR, no murmur, no edema Gastrointestinal (Abdomen): normal bowel sounds, soft, nontender, no hepatosplenomegaly Musculoskeletal: moderate effusion and swelling to left knee diffuse left knee tenderness Skin: no rashes, warm and dry Neurologic: alert and oriented to name, place, situation since her fall no focal neurologic deficits Psychiatric: A+Ox3, euthymic affect Results & Data Results & Data ([facility]) Vital Signs (Past 12 Hours) Vital Signs Temp Pulse Pulse Resp BP BP Pulse Ox 03/14/21 21:34 72 16 172/90 H 95 03/14/21 20:44 64 18 173/79 H 95 03/14/21 19:51 84 16 166/75 H 94 03/14/21 19:43 94 03/14/21 16:11 95 03/14/21 16:02 88 L 03/14/21 15:58 36.7 C 85 16 149/74 H 93 Code Status & VTE Plan VTE Prophylaxis Plan VTE Prophylaxis will be ordered: Yes Supervising Physician Co-Signing Physician Notes Attending addendum: I have physically seen this patient, have supervised the medical residents activities, and agree with the H&P unless as otherwise noted. Assessment and Plan: Left knee joint effusion status post fall/left knee fragments suggesting possible MCL injury- Patient unable to walk Admit for pain management and orthopedic assessment Knee immobilizer until assessed by orthopedics PT/OT assessment Referral to social work instructor for possible acute rehab versus SNF Diabetes mellitus- Insulin sliding scale Check hemoglobin A1c Hypertension- Continue metoprolol and diltiazem with hold parameters Remaining orders and notations as noted Resident Activity Tracking Resident Involvement: Resident Care Provided Care Provided: Adult Hospital Medicine
[2021-03-14] MEDS ORDERED: GLUCAGON FOR INJ 1 MG VIAL SQ PRN (21:55)
[2021-03-14] MEDS ORDERED: GLUCOSE 10 TABS/TUBE PO PRN (21:55)
[2021-03-14] MEDS ORDERED: GLUCOSE 40% GEL 15 GM TUBE PO PRN (21:55)
[2021-03-14] MEDS ORDERED: DEXTROSE 50% 50 ML SYRINGE IV PRN (21:55)
[2021-03-14] MEDS ORDERED: ONDANSETRON INJ 2 MG/ML 2 ML VIAL IV PRN (21:55)
[2021-03-14] MEDS ORDERED: CARBOHYDRATES FOR HYPOGLYCEMIA PO PRN (21:55)
[2021-03-14] MEDS: INSULIN ASPART PER UNIT SC SCH (22:25)
[2021-03-14] MEDS: INSULIN GLARGINE SOLOSTAR 100 UNITS/ML 3 ML PEN SC SCH (22:49)
[2021-03-14] MEDS: DOCUSATE SODIUM 100 MG CAP PO SCH (22:55)
[2021-03-14] MEDS: OXYBUTYNIN CHLORIDE 5 MG TAB PO SCH (22:56)
[2021-03-14] MEDS: PREGABALIN 150 MG CAP PO SCH (22:56)
[2021-03-14] MEDS: ATORVASTATIN 20 MG TAB PO SCH (22:57)
[2021-03-14] MEDS: levETIRAcetam 500 MG TAB PO SCH (22:57)
--- NOTE | 2021-03-14 22:58 | CT Scan Report ---
CT head/brain wo con CLINICAL HISTORY: fall, may have hit head, on antiplatelet . Confusion and weakness COMPARISON STUDY: 03/01/2021 CT DOSE: 614.27 mGy.cm TECHNIQUE: Standard CT of the Brain was performed without IV contrast. A dose lowering technique was utilized adhering to the principles of ALARA. FINDINGS: Extraaxial space: There is no evidence for subdural hematoma. There are no extra-axial fluid collecti ons. Ventricles and cisterns: The ventricles are mildly dilated bilaterally. There is no evidence for mid line shift or mass effect. Parenchyma: There is no subarachnoid or intraparenchymal hemorrhage. There is no evidence for an acu te infarct or cerebral edema. There is mild cerebral cortical atrophy and decreased attenuation in th e periventricular white matter representing remote small vessel disease. The patient is again status post left temporoparietal craniotomy with surgical clips seen in the left temporal lobe, unchanged. There are no gross mass lesions. Osseous structures: There is no evidence for an acute fracture. The visualized paranasal sinuses are clear. The mastoid air cells are clear bilaterally. Soft tissues: There is no evidence for focal soft tissue swelling. IMPRESSION: No acute intracerebral pathology. Cerebral cortical atrophy and remote small vessel disea se are again seen. Postsurgical changes are also again noted involving the left temporal parietal lob e. ACT 112: Negative or not required by law. Electronically signed by: Rishi Alfredo M.D. 03/14/2021 10:56 PM
[2021-03-14] MEDS: DICLOFENAC SOD 1% GEL 100 GM TUBE EXT SCH (22:59)
[2021-03-14] MEDS: ACETAMINOPHEN 325 MG TAB PO PRN (23:59)
[2021-03-15] MEDS: MAGNESIUM SULFATE / D5W 1 GM/100 ML BAG IV SCH ×2 (03:52→05:49)
[2021-03-15] MEDS: DICLOFENAC SOD 1% GEL 100 GM TUBE EXT SCH ×3 (06:09→21:07)
--- NOTE | 2021-03-15 07:42 | Electrocardiogram Report ---
Test Reason : Blood Pressure : / mmHG Vent. Rate : 077 BPM Atrial Rate : 077 BPM P-R Int : 270 ms QRS Dur : 150 ms QT Int : 422 ms P-R-T Axes : 080 -18 060 degrees QTc Int : 477 ms Sinus rhythm with 1st degree A-V block Left bundle branch block Abnormal ECG When compared with ECG of 01-MAR-2021 12:48, IN interval has increased Confirmed by Demetrio Mills ([id number]) on 03/15/2021 7:41:56 AM Referred By: REFERRED SELF Confirmed By:Conner Mills
[2021-03-15] MEDS: CETIRIZINE HCL 10 MG TABLET PO SCH (08:10)
[2021-03-15] MEDS: CHOLECALCIFEROL 1,000 UNITS 25 MCG TAB PO SCH (08:12)
[2021-03-15] MEDS: CYANOCOBALAMIN (B-12) 500 MCG TABLET PO SCH (08:13)
[2021-03-15] MEDS: dilTIAZem HCL 180 MG CAPCR PO SCH (08:13)
[2021-03-15] MEDS: FAMOTIDINE 40 MG TABLET PO SCH (08:14)
[2021-03-15] MEDS: levETIRAcetam 500 MG TAB PO SCH ×2 (08:14→21:06)
[2021-03-15] MEDS: METOPROLOL SUCC 25MG EXT REL TAB PO SCH (08:15)
[2021-03-15] MEDS: MAGNESIUM OXIDE 400 MG TAB PO SCH (08:15)
[2021-03-15] MEDS: OXYBUTYNIN CHLORIDE 5 MG TAB PO SCH ×2 (08:15→21:05)
[2021-03-15] MEDS: VENLAFAXINE HCL XR 150 MG CAPXR PO SCH (08:16)
[2021-03-15] MEDS: LIDOCAINE 5% 1 PATCH TD SCH (08:18)
[2021-03-15] MEDS: POLYETHYLENE (MIRALAX) 17 GM PACK PO SCH (08:19)
[2021-03-15] MEDS: PREGABALIN 150 MG CAP PO SCH ×2 (08:28→21:05)
[2021-03-15 08:57] LABS: Basophils # (auto) 0.03 K/uL (0-0.2); Basophils % (auto) 0.3 %; Eosinophils % (auto) 5.3 %; Hematocrit (blood only) 33.4 % (37-47); Hemoglobin 10.3 g/dL (12.0-16.0); Immature Granulocytes # (auto) 0.01 K/uL (0.00-0.02); Immature Granulocytes % (auto) 0.1 %; Lymphocytes # (auto) 1.75 K/uL (1.2-3.4); Lymphocytes % (auto) 18.5 %; Mean Corpuscular Hemoglobin 24.2 pg (25-34); Mean Corpuscular Hgb Conc 30.8 g/dL (32-36); Mean Corpuscular Volume 78.4 fL (80-100); Mean Platelet Volume 9.4 fL (7.4-10.4); Monocytes # (auto) 0.77 K/uL (0.11-0.59); Monocytes % (auto) 8.1 %; Neutrophils % (auto) 67.7 %; Platelet Count 457 K/uL (130-400); RDW Standard Deviation 51.6 fL (36.4-46.3); Red Blood Count 4.26 M/uL (4.2-5.4); White Blood Count 9.46 K/uL (4.8-10.8)
[2021-03-15] MEDS: INSULIN ASPART PER UNIT SC SCH ×4 (09:02→20:54)
[2021-03-15] MEDS: INSULIN GLARGINE SOLOSTAR 100 UNITS/ML 3 ML PEN SC SCH ×2 (09:03→20:48)
[2021-03-15 09:24] LABS: BUN Creatinine Ratio 16.4 (10-20); Calcium 8.5 mg/dl (8.5-10.1); Creatinine Clr Calc Pharmacy 103.9 ml/min; Est GFR (African American) 107.1 ml/min; Est GFR (Non-African American) 92.4 ml/min; Magnesium 2.5 mg/dl (1.7-2.4)
--- NOTE | 2021-03-15 17:36 | Hospitalist Progress Note ---
Date of Service March 15, 2021 Assessment & Plan (1) Ambulatory dysfunction: Plan: 75 yo F Hx DM2, cerebral aneurysm s/p repair, HTN, dementia, seizures admitted for deconditioning and fall with left knee injury. Fall, left knee injury -Unclear what caused the fall, as patient might be unreliable historian; patient does have history of prior falls; patient lives alone, but does have home care during the day. -Patient is alert and oriented at this time. CT head normal -CT left knee: Fragments consistent with MCL injury * PT/OT ordered: Appreciate recommendations for placement (acute rehab vs SNF) for reconditioning * Pain control: Tylenol 650 mg every 4 as needed, lidocaine patch; will adjust if pain not adequately controlled Type 2 diabetes * Basal bolus insulin * Diabetic diet Hypomagnesemia -Magnesium 1.5 on admission, now 2.5 after intravenous repletion * Magnesium oxide 400 mg p.o. every morning * Trend magnesium Hypertension * Home metoprolol and diltiazem * Monitor blood pressures Seizure disorder * Home Keppra 500 mg p.o. twice daily GERD -Home pantoprazole 40 mg held, replaced with famotidine due to patient's hypomagnesemia * Trend magnesium, as above (see hypomagnesemia) Code Status: Conditional Code, no intubation, all other interventions okay FEN: Diabetic diet, Mg repleted as above DVT prophylaxis: SCDs until CT Head evaluated Dispo: Med/Surg (2) T2DM (type 2 diabetes mellitus): (3) Hypertension: (4) Seizure: (5) Knee pain: Admission and Anticipated Discharge Date Admission Date: March 14, 2021 Supervising Physician Co-Signing Physician Notes pt seen case d/w Dr Phillips resting comfortably - sleeping when i see her and doesn't stir to voice vitals noted resting comfortably knee in immobilizer. skin no rashes no pallor or icterus. no focal neuro deficits at rest knee pain - suspected MCL injury - immobilzer and pain control - low threshold for ortho consult although not immediately needed. PT/OT eval and treat otherwise as above Andrez Proctor is a 75-year-old woman who presented to the emergency room after a fall. She has a history of type 2 diabetes, cerebral aneurysm status postrepair, hypertension, dementia, seizures. Imaging revealed evidence of knee injury, possibly left MCL tear. Head CT, other imaging was normal. Today, she is resting in bed comfortably with left knee in immobilizer. She recalls waking up to go to the bathroom and falling. She reports some residual knee pain, which is otherwise controlled by her meds. ROS + vertigo immediately after working with PT, when her legs were brought back on the bed and she laid down. This episode was witnessed by myself. ROS otherwise not revelatory. Review of Systems Review of Systems: All systems reviewed & are unremarkable except as noted in HPI & below Physical Exam Constitutional: + obese and + physical limitations; no acute distress ENMT: external ear and nose normal, oropharynx normal Respiratory: normal respiratory effort, lungs clear to auscultation Cardiovascular: RRR, no murmur, no edema Gastrointestinal (Abdomen): normal bowel sounds, soft, nontender, no hepatosplenomegaly Musculoskeletal: Knee: + limited ROM of knee Neurologic: Speech / Cognition: + abnormal speech (Moderate dysarthria.) Motor/Sensory: + tremor (Resting) Results & Data Results & Data ([facility]) Vital Signs (Past 12 Hours) Vital Signs Temp Pulse Resp BP Pulse Ox 03/15/21 14:59 36.8 C 76 16 136/68 95 03/15/21 07:31 36.7 C 79 19 190/69 H 92 Resident Activity Tracking Resident Involvement: Resident Care Provided Care Provided: Adult Hospital Medicine
--- NOTE | 2021-03-15 17:59 | Billing Data ---
Date of Service March 15, 2021 Coding Level of Care Code 42942 Subseq Obs Care Lvl 1
[2021-03-15] MEDS: DOCUSATE SODIUM 100 MG CAP PO SCH (21:05)
[2021-03-15] MEDS: ATORVASTATIN 20 MG TAB PO SCH (21:06)
[2021-03-15] MEDS: ACETAMINOPHEN 325 MG TAB PO PRN (23:37)
[2021-03-16] MEDS: DICLOFENAC SOD 1% GEL 100 GM TUBE EXT SCH ×3 (05:26→20:30)
[2021-03-16 06:47] LABS: Appearance Urine Clear (Clear); Bacteria Urine Automated Negative (Negative); Bilirubin Urine Negative (Negative); Blood Urine 1+ (Negative); Color Urine Yellow; Epithelial Cell Urine Auto >30 /lpf (0-5); Glucose Urine UA Negative (Negative); Ketones Urine Negative (Negative); Leukocyte Esterase Urine Trace (Negative); Nitrite Urine Negative (Negative); Protein Urine 1+ (Negative); RBC Urine Automated 0-4 /hpf (0-4); Urobilinogen Urine Negative (Negative); pH Urine 6.5 (4.5-7.5)
[2021-03-16] MEDS: CETIRIZINE HCL 10 MG TABLET PO SCH (09:01)
[2021-03-16] MEDS: CHOLECALCIFEROL 1,000 UNITS 25 MCG TAB PO SCH (09:02)
[2021-03-16] MEDS: dilTIAZem HCL 180 MG CAPCR PO SCH (09:02)
[2021-03-16] MEDS: CYANOCOBALAMIN (B-12) 500 MCG TABLET PO SCH (09:02)
[2021-03-16] MEDS: FAMOTIDINE 40 MG TABLET PO SCH (09:03)
[2021-03-16] MEDS: INSULIN GLARGINE SOLOSTAR 100 UNITS/ML 3 ML PEN SC SCH ×2 (09:03→21:15)
[2021-03-16] MEDS: LIDOCAINE 5% 1 PATCH TD SCH (09:04)
[2021-03-16] MEDS: levETIRAcetam 500 MG TAB PO SCH ×2 (09:04→20:31)
[2021-03-16] MEDS: METOPROLOL SUCC 25MG EXT REL TAB PO SCH (09:05)
[2021-03-16] MEDS: OXYBUTYNIN CHLORIDE 5 MG TAB PO SCH ×2 (09:05→20:30)
[2021-03-16] MEDS: MAGNESIUM OXIDE 400 MG TAB PO SCH (09:05)
[2021-03-16] MEDS: POLYETHYLENE (MIRALAX) 17 GM PACK PO SCH (09:06)
[2021-03-16] MEDS: VENLAFAXINE HCL XR 150 MG CAPXR PO SCH (09:06)
[2021-03-16] MEDS: INSULIN ASPART PER UNIT SC SCH ×4 (09:16→21:15)
[2021-03-16] MEDS: PREGABALIN 150 MG CAP PO SCH ×2 (09:17→20:30)
--- NOTE | 2021-03-16 17:19 | Hospitalist Progress Note ---
Date of Service March 16, 2021 Assessment & Plan (1) Ambulatory dysfunction: Plan: 75 yo F Hx DM2, cerebral aneurysm s/p repair, HTN, dementia, seizures admitted for deconditioning and fall with left knee injury. Fall, left knee injury -Unclear what caused the fall, as patient might be unreliable historian; patient does have history of prior falls; patient lives alone, but does have home care during the day. -Patient is alert and oriented at this time. CT head normal -CT left knee: Fragments consistent with MCL injury * PT/OT ordered: Recommended short-term rehab placement for 24-hour supervision * Pain adequately controlled for now: Tylenol 650 mg every 4 as needed, lidocaine patch * Continue to monitor Type 2 diabetes * Basal bolus insulin * Diabetic diet Hypomagnesemia -Magnesium 1.5 on admission, now 2.5 after intravenous repletion * Magnesium oxide 400 mg p.o. every morning * Trend magnesium Hypertension * Home metoprolol and diltiazem * Monitor blood pressures Seizure disorder * Home Keppra 500 mg p.o. twice daily GERD -Home pantoprazole 40 mg held, replaced with famotidine due to patient's hypo magnesemia * Trend magnesium, as above (see hypomagnesemia) Code Status: Conditional Code, no intubation, all other interventions okay FEN: Diabetic diet DVT prophylaxis: SCDs until CT Head evaluated Dispo: Med/Surg (2) T2DM (type 2 diabetes mellitus): (3) Hypertension: (4) Seizure: (5) Knee pain: Admission and Anticipated Discharge Date Admission Date: March 14, 2021 Supervising Physician Co-Signing Physician Notes I personally examined the patient and verified all coreas points of history and exam, discussed case, and agree with decision making with Dr Phillips pain under reasonable control. doesn't have much ambulatory function at baseline. discussed knee injury possible MCL but also conservative vs involving ortho early - she's OK w conservative // involve ortho if pain hard to control or improvement reaches an unnacceptable plateau vitals noted resting comfortably nad. heent nc at mmm breathing unlabored no accessory muscles good effort. skin no rashes no pallor or icterus. no focal neuro deficits noted. knee tender. knee pain - suspected MCL injury - immobilizer and pain control - low threshold for ortho consult although not immediately needed - see above - if pain hard to control or mobility reaches an unacceaptably low plateau. PT/OT eval and treat otherwise as above Subjective No acute events overnight. Seated in bed comfortably this morning. She reports feeling much better as she was able to get some more sleep. She reports being pain-free since yesterday, except for her back, briefly. She does report an episode of vertigo this morning after moving her legs back up to her bed. She continues to use the bedside commode for bowel movements, with nursing assistance. Review of Systems Review of Systems: All systems reviewed & are unremarkable except as noted in HPI & below Physical Exam Constitutional: WD/WN, vitals as above + obese and well groomed; no acute distress Eyes: PERRL, conjunctivae normal, anicteric sclerae Respiratory: normal respiratory effort, lungs clear to auscultation Cardiovascular: RRR, no murmur, no edema Gastrointestinal (Abdomen): normal bowel sounds, soft, nontender, no hepatosplenomegaly Musculoskeletal: Knee: + limited ROM of knee (Left knee in immobilizer) Neurologic: Motor/Sensory: + tremor (Resting tremor most notable in the left hand) Results & Data Results & Data ([facility]) Vital Signs (Past 12 Hours) Vital Signs Temp Pulse Resp BP Pulse Ox 03/16/21 15:11 36.7 C 75 16 124/72 92 03/16/21 14:57 94 03/16/21 07:18 36.9 C 78 16 128/74 94 Resident Activity Tracking Resident Involvement: Resident Care Provided Care Provided: Adult Hospital Medicine
--- NOTE | 2021-03-16 18:21 | Billing Data ---
Date of Service March 16, 2021 Coding Level of Care Code 57494 Subseq Obs Care Lvl 2
[2021-03-16] MEDS: ATORVASTATIN 20 MG TAB PO SCH (20:31)
[2021-03-16] MEDS: DOCUSATE SODIUM 100 MG CAP PO SCH (20:31)
[2021-03-17] MEDS: DICLOFENAC SOD 1% GEL 100 GM TUBE EXT SCH ×3 (05:40→22:17)
[2021-03-17 07:42] LABS: Basophils # (auto) 0.04 K/uL (0-0.2); Basophils % (auto) 0.6 %; Eosinophils # (auto) 0.35 K/uL (0-0.5); Eosinophils % (auto) 5.2 %; Hematocrit (blood only) 35.1 % (37-47); Hemoglobin 10.7 g/dL (12.0-16.0); Immature Granulocytes # (auto) 0.01 K/uL (0.00-0.02); Immature Granulocytes % (auto) 0.1 %; Lymphocytes # (auto) 1.79 K/uL (1.2-3.4); Lymphocytes % (auto) 26.4 %; Mean Corpuscular Hgb Conc 30.5 g/dL (32-36); Mean Corpuscular Volume 78.7 fL (80-100); Mean Platelet Volume 9.3 fL (7.4-10.4); Monocytes # (auto) 0.68 K/uL (0.11-0.59); Neutrophils # (auto) 3.91 K/uL (1.4-6.5); Neutrophils % (auto) 57.7 %; Platelet Count 472 K/uL (130-400); RDW Coefficient of Variation 18.1 % (11.5-14.5); RDW Standard Deviation 51.9 fL (36.4-46.3); Red Blood Count 4.46 M/uL (4.2-5.4); White Blood Count 6.78 K/uL (4.8-10.8)
--- NOTE | 2021-03-17 07:46 | Hospitalist Progress Note ---
Date of Service March 17, 2021 Assessment & Plan (1) Ambulatory dysfunction: Plan: 75 yo F Hx DM2, cerebral aneurysm s/p repair, HTN, dementia, seizures admitted for deconditioning and fall with left knee injury. Fall, left knee injury -Unclear what caused the fall, as patient might be unreliable historian; patient does have history of prior falls; patient lives alone, but does have home care during the day. -Patient is alert and oriented at this time. CT head normal -CT left knee: Fragments consistent with MCL injury * PT/OT working w/ pt: Recommended short-term rehab placement for 24-hour supervision; discussed w/ pt. who is in agreement. Will speak with case management in the AM to resume search for placement. * Pain adequately controlled for now: Tylenol 650 mg every 4 as needed, lidocaine patch * Continue to monitor, adjust as needed Type 2 diabetes * Basal bolus insulin * Diabetic diet Hypomagnesemia -Magnesium 1.5 on admission, now 2.5 after intravenous repletion * Magnesium oxide 400 mg p.o. every morning * Trend magnesium Hypertension * Home metoprolol and diltiazem * Monitor blood pressures Seizure disorder * Home Keppra 500 mg p.o. twice daily GERD -Home pantoprazole 40 mg held, replaced with famotidine due to patient's hypomagnesemia * Trend magnesium, as above (see hypomagnesemia); replete as needed Code Status: Conditional Code, no intubation, all other interventions okay FEN: Diabetic diet DVT prophylaxis: SCDs until CT Head evaluated Dispo: Med/Surg; awaiting placement at SNF (2) T2DM (type 2 diabetes mellitus): (3) Hypertension: (4) Seizure: (5) Knee pain: Admission and Anticipated Discharge Date Admission Date: March 14, 2021 Supervising Physician Co-Signing Physician Notes Patient seen and examined with PGY-1 Dr. Phillips. Agree with history, exam findings, assessment, and plan of care as outlined. In brief, Ms. Kenny is a 75 year old female with hx of DM2, cerebral aneurysm s/p repair, HTN, dementia, and seziures admitted following a fall and left knee injury. She has been working with PT and feeling that it is do-able. Does have some knee pain, but this is better with the knee immobilizer. She is open to rehab like [facility] or a SNF. She is aware that with no nighttime supervision, especially in the knee immobilizer, she may have another fall. VS and nursing notes reviewed. Well appearing. Heart with regular rate and rhythm. Lungs are clear to auscultation in all lung lomas. Left knee with mild effusion; tender over the medial joint line. MCL and LCL testing deferred to pain. Neurovascularly in tact in the distal lower extremities. Labs and imaging reviewed. 1. Fall. Unclear etiology. Likely mechanical. 2. Left knee injury. Knee x-ray and CT consistent with MCL injury. In a knee immobilizer. PT/OT. 3. DM2. Basal bolus insulin. 4. HTN. Continue metoprolol and diltiazem. 5. Seizure disorder. Continue home Keppra 500mg BID. 6. GERD. Replaced PPI with famotidine due to hypomagnesemia. 7. Hypomagnesemia. Repleted. Continue with mag oxide 400mg daily. Dispo: Initially reluctant to go to a SNF or inpatient review; she is now willing to do so with the goal of eventually being able to go home. Subjective No acute events overnight. Esthela is sitting in bed comfortably. Her pain appears to be well controlled with the current regimen. She has no other acute complaints. PT recommendations were discussed, specifically that she be sent SNF for recovery before going home. Case management spoke to. She declined as she preferred to go straight home. After second conversation with patient, she understands and is in agreement with plan to discharge to SNF in the short-term. Review of Systems Review of Systems: All systems reviewed & are unremarkable except as noted in HPI & below Physical Exam Constitutional: WD/WN, vitals as above + obese, + physical limitations and well groomed; no acute distress Eyes: PERRL, conjunctivae normal, anicteric sclerae Respiratory: normal respiratory effort, lungs clear to auscultation Cardiovascular: RRR, no murmur, no edema Gastrointestinal (Abdomen): normal bowel sounds, soft, nontender, no hepatosplenomegaly Musculoskeletal: Knee: + limited ROM of knee (Left knee in immobilizer) Neurologic: Speech / Cognition: + abnormal speech (Moderate dysarthria.) Motor/Sensory: + tremor (Resting tremor most notable in the left hand) Results & Data Results & Data ([facility]) Vital Signs (Past 12 Hours) Vital Signs Temp Pulse Resp BP Pulse Ox 03/16/21 22:57 37.2 C 80 17 160/78 H 92 Resident Activity Tracking Resident Involvement: Resident Care Provided Care Provided: Adult Hospital Medicine
[2021-03-17] MEDS: levETIRAcetam 500 MG TAB PO SCH ×2 (08:10→20:45)
[2021-03-17] MEDS: FAMOTIDINE 40 MG TABLET PO SCH (08:10)
[2021-03-17] MEDS: CYANOCOBALAMIN (B-12) 500 MCG TABLET PO SCH (08:10)
[2021-03-17] MEDS: OXYBUTYNIN CHLORIDE 5 MG TAB PO SCH ×2 (08:10→20:46)
[2021-03-17] MEDS: VENLAFAXINE HCL XR 150 MG CAPXR PO SCH (08:10)
[2021-03-17] MEDS: METOPROLOL SUCC 25MG EXT REL TAB PO SCH (08:10)
[2021-03-17] MEDS: MAGNESIUM OXIDE 400 MG TAB PO SCH (08:10)
[2021-03-17] MEDS: dilTIAZem HCL 180 MG CAPCR PO SCH (08:10)
[2021-03-17] MEDS: CHOLECALCIFEROL 1,000 UNITS 25 MCG TAB PO SCH (08:10)
[2021-03-17] MEDS: CETIRIZINE HCL 10 MG TABLET PO SCH (08:10)
[2021-03-17] MEDS: LIDOCAINE 5% 1 PATCH TD SCH (08:11)
[2021-03-17] MEDS: POLYETHYLENE (MIRALAX) 17 GM PACK PO SCH (08:11)
[2021-03-17] MEDS: PREGABALIN 150 MG CAP PO SCH ×2 (08:14→20:52)
[2021-03-17 08:27] LABS: Calcium 8.9 mg/dl (8.5-10.1); Creatinine Clr Calc Pharmacy 95.2 ml/min; Est GFR (African American) 104.1 ml/min; Est GFR (Non-African American) 89.8 ml/min; Magnesium 1.7 mg/dl (1.7-2.4); Potassium 3.9 mmol/L (3.5-5.1)
[2021-03-17] MEDS: INSULIN GLARGINE SOLOSTAR 100 UNITS/ML 3 ML PEN SC SCH ×2 (08:51→22:13)
[2021-03-17] MEDS: INSULIN ASPART PER UNIT SC SCH ×4 (08:52→22:04)
[2021-03-17] MEDS: ENOXAPARIN INJ 40 MG/0.4 ML SYR SQ SCH (09:43)
[2021-03-17] MEDS: ATORVASTATIN 20 MG TAB PO SCH (20:46)
[2021-03-17] MEDS: DOCUSATE SODIUM 100 MG CAP PO SCH (20:46)
[2021-03-18] MEDS: DICLOFENAC SOD 1% GEL 100 GM TUBE EXT SCH ×3 (05:39→21:33)
[2021-03-18 06:22] LABS: Basophils # (auto) 0.07 K/uL (0-0.2); Eosinophils % (auto) 5.7 %; Hemoglobin 10.9 g/dL (12.0-16.0); Immature Granulocytes # (auto) 0.01 K/uL (0.00-0.02); Immature Granulocytes % (auto) 0.1 %; Lymphocytes # (auto) 2.29 K/uL (1.2-3.4); Lymphocytes % (auto) 32.9 %; Mean Corpuscular Hemoglobin 23.9 pg (25-34); Mean Corpuscular Hgb Conc 30.3 g/dL (32-36); Mean Corpuscular Volume 78.8 fL (80-100); Mean Platelet Volume 9.5 fL (7.4-10.4); Monocytes % (auto) 11.5 %; Neutrophils # (auto) 3.39 K/uL (1.4-6.5); Neutrophils % (auto) 48.8 %; Platelet Count 478 K/uL (130-400); RDW Standard Deviation 52.1 fL (36.4-46.3); Red Blood Count 4.57 M/uL (4.2-5.4); White Blood Count 6.96 K/uL (4.8-10.8)
[2021-03-18 07:00] LABS: BUN Creatinine Ratio 24.1 (10-20); Calcium 9.1 mg/dl (8.5-10.1); Creatinine Clr Calc Pharmacy 105.8 ml/min; Est GFR (African American) 107.7 ml/min
--- NOTE | 2021-03-18 08:19 | Hospitalist Progress Note ---
Date of Service March 18, 2021 Assessment & Plan (1) Ambulatory dysfunction: Plan: 75 yo F Hx DM2, cerebral aneurysm s/p repair, HTN, dementia, seizures admitted for deconditioning and fall with left knee injury. Fall, left knee injury -Unclear what caused the fall, as patient might be unreliable historian; patient does have history of prior falls; patient lives alone, but does have home care during the day. -Patient is alert and oriented at this time. CT head normal -CT left knee: Fragments consistent with MCL injury -Currently awaiting placement at acute rehab facility/SNF. Patient's first choice ([facility]) rejected, according to case management. Will try SNF associated with [facility], where patient currently lives independently. * Daily PT/OT * Pain adequately controlled for now: Tylenol 650 mg every 4 as needed, lidocain e patch * Continue to monitor, adjust as needed Type 2 diabetes * Basal bolus insulin * Diabetic diet Hypomagnesemia -Magnesium 1.5 on admission, now 2.5 after intravenous repletion * Magnesium oxide 400 mg p.o. every morning * Trend magnesium Hypertension * Home metoprolol and diltiazem * Monitor blood pressures Seizure disorder * Home Keppra 500 mg p.o. twice daily GERD -Home pantoprazole 40 mg held, replaced with famotidine due to patient's hypomagnesemia * Trend magnesium, as above (see hypomagnesemia); replete as needed Code Status: Conditional Code, no intubation, all other interventions okay FEN: Diabetic diet DVT prophylaxis: SCDs until CT Head evaluated Dispo: Med/Surg; awaiting placement at SNF (2) T2DM (type 2 diabetes mellitus): (3) Hypertension: (4) Seizure: (5) Knee pain: Admission and Anticipated Discharge Date Admission Date: March 17, 2021 Supervising Physician Co-Signing Physician Notes Patient seen and examined independently of PGY-1 Dr. Phillips. Agree with history, exam findings, assessment, and plan of care as outlined. In brief, Ms. Kenny is a 75 year old female with hx of DM2, cerebral aneurysm s/p repair, HTN, dementia, and seizures admitted following a fall and left knee injury. Working with PT. Feels well and has no complaints. VS and nursing notes reviewed. Well appearing. Heart with regular rate and rhythm. Lungs are clear to auscultation in all lung lomas. Left knee with mild effusion; tender over the medial joint line. MCL and LCL testing deferred to pain. Neurovascularly in tact in the distal lower extremities. Labs and imaging reviewed. 1. Fall. Unclear etiology. Likely mechanical. 2. Left knee injury. Knee x-ray and CT consistent with MCL injury. In a knee immobilizer. PT/OT. 3. DM2. Basal bolus insulin. 4. HTN. Continue metoprolol and diltiazem. 5. Seizure disorder. Continue home Keppra 500mg BID. 6. GERD. Replaced PPI with famotidine due to hypomagnesemia. 7. Hypomagnesemia. Repleted. Continue with mag oxide 400mg daily. [facility]. Subjective No acute events overnight. General sitting in the chair, comfortably. Reports some residual pain in her knee. Otherwise, she has no acute complaints. Reiterated plan to send her to acute rehab/SNF prior to return home. Patient continues to understand and be in agreement. Physical Exam Constitutional: WD/WN, vitals as above + obese, + physical limitations and well groomed; no acute distress Eyes: PERRL, conjunctivae normal, anicteric sclerae ENMT: external ear and nose normal, oropharynx normal Respiratory: normal respiratory effort, lungs clear to auscultation Cardiovascular: RRR, no murmur, no edema Gastrointestinal (Abdomen): normal bowel sounds, soft, nontender, no hepatosplenomegaly Musculoskeletal: Knee: + limited ROM of knee (Left knee in immobilizer) and + joint line tenderness Neurologic: Speech / Cognition: + abnormal speech (Moderate dysarthria.) Motor/Sensory: + tremor (Resting tremor most notable in the left hand) Results & Data Results & Data ([facility]) Vital Signs (Past 12 Hours) Vital Signs Temp Pulse Resp BP Pulse Ox 03/18/21 07:33 36.8 C 66 16 168/78 H 92 03/17/21 22:29 36.6 C 75 18 162/82 H 93 Resident Activity Tracking Resident Involvement: Resident Care Provided Care Provided: Adult [facility] Medicine
[2021-03-18] MEDS: PREGABALIN 150 MG CAP PO SCH ×2 (08:54→20:55)
[2021-03-18] MEDS: ENOXAPARIN INJ 40 MG/0.4 ML SYR SQ SCH (08:54)
[2021-03-18] MEDS: LIDOCAINE 5% 1 PATCH TD SCH ×2 (08:55→13:09)
[2021-03-18] MEDS: INSULIN ASPART PER UNIT SC SCH ×4 (08:57→20:57)
[2021-03-18] MEDS: INSULIN GLARGINE SOLOSTAR 100 UNITS/ML 3 ML PEN SC SCH ×2 (08:58→20:56)
[2021-03-18] MEDS: METOPROLOL SUCC 25MG EXT REL TAB PO SCH (10:18)
[2021-03-18] MEDS: POLYETHYLENE (MIRALAX) 17 GM PACK PO SCH (10:20)
[2021-03-18] MEDS: CYANOCOBALAMIN (B-12) 500 MCG TABLET PO SCH (10:58)
[2021-03-18] MEDS: dilTIAZem HCL 180 MG CAPCR PO SCH (10:58)
[2021-03-18] MEDS: CETIRIZINE HCL 10 MG TABLET PO SCH (10:58)
[2021-03-18] MEDS: MAGNESIUM OXIDE 400 MG TAB PO SCH (10:58)
[2021-03-18] MEDS: VENLAFAXINE HCL XR 150 MG CAPXR PO SCH (10:58)
[2021-03-18] MEDS: levETIRAcetam 500 MG TAB PO SCH ×2 (10:58→20:51)
[2021-03-18] MEDS: FAMOTIDINE 40 MG TABLET PO SCH (10:58)
[2021-03-18] MEDS: CHOLECALCIFEROL 1,000 UNITS 25 MCG TAB PO SCH (11:57)
[2021-03-18] MEDS: OXYBUTYNIN CHLORIDE 5 MG TAB PO SCH ×2 (12:49→20:51)
[2021-03-18] MEDS: ACETAMINOPHEN 325 MG TAB PO PRN (13:10)
[2021-03-18] MEDS: ATORVASTATIN 20 MG TAB PO SCH (20:52)
[2021-03-18] MEDS: DOCUSATE SODIUM 100 MG CAP PO SCH (20:52)
[2021-03-19] MEDS: DICLOFENAC SOD 1% GEL 100 GM TUBE EXT SCH ×3 (06:06→21:10)
--- NOTE | 2021-03-19 06:56 | Hospitalist Progress Note ---
Date of Service March 19, 2021 Assessment & Plan (1) Ambulatory dysfunction: Plan: 75 yo F Hx DM2, cerebral aneurysm s/p repair, HTN, dementia, seizures admitted for deconditioning and fall with left knee injury. Fall, weakness, left MCL injury: - Fall occurred in the middle of the night when aids were not in-house. - CT Head without evidence fo stroke of bleeding. - No metabolic findings suggestive of cause of fall. - Ultimately suspect deconditioning and minimal ambulation at home as cause of fall. - CT Left knee with bony fragments consistent with MCL injury; currently in knee immobilizer. - Will need outpatient follow up in short order with Orthopedics. - Continue PT/OT. Encouraged ambulation as able, and out of bed to chair for meals. - Patient denied acute rehab stay by insurance, therefore pursuing SNF placement. - Tylenol and lidocaine patches as needed for knee pain; good control at this time. DM2: - Basal/bolus insulin. - Diabetic diet. Hypertension: - Continue home metoprolol and diltiazem. Seizure disorder: - Continue home Keppra 500 mg p.o. twice daily GERD: - Continue famotidine. - Holding PPI given hypomagnesemia on admission. Code Status: Conditional Code; no intubation, all other interventions okay FEN: DM2 diet DVT prophylaxis: Lovenox daily Dispo: Med/Surg (2) T2DM (type 2 diabetes mellitus): (3) Hypertension: (4) Seizure: (5) Knee pain: Admission and Anticipated Discharge Date Admission Date: March 17, 2021 Supervising Physician Co-Signing Physician Notes Patient seen and examined independently of PGY-3 Dr. Miranda. Agree with history, exam findings, assessment, and plan of care as outlined. In brief, Ms. Kenny is a 75 year old female with hx of DM2, cerebral aneurysm s/p repair, HTN, dementia, and seizures admitted following a fall and left knee injury. Has been noticing some rash in the skin fold beneath the breasts. Nursing has been using some barrier cream but has not been improving. No itchy or painful. VS and nursing notes reviewed. Well appearing. Heart with regular rate and rhythm. Lungs are clear to auscultation in all lung lomas. Left knee with mild effusion; tender over the medial joint line. MCL and LCL testing deferred to pain. Neurovascularly in tact in the distal lower extremities. Skin beneath the breast is erythematous with satellite lesions; slightly macerated in the fold. Labs and imaging reviewed. 1. Fall. Unclear etiology. Likely mechanical. 2. Left knee injury. Knee x-ray and CT consistent with MCL injury. In a knee immobilizer. PT/OT. 3. DM2. Basal bolus insulin. 4. HTN. Continue metoprolol and diltiazem. 5. Intertrigo. Start topical nystatin. Keep area dry. 6. Seizure disorder. Continue home Keppra 500mg BID. 7. GERD. Replaced PPI with famotidine due to hypomagnesemia. 8. Hypomagnesemia. Repleted. Continue with mag oxide 400mg daily. [facility] Subjective Patient without acute events overnight. Some left knee pain but no worse than yesterday. Otherwise feels well. Review of Systems 2 Review of Systems: All systems reviewed & are unremarkable except as noted in HPI & below Physical Exam Constitutional: WD/WN, vitals as above + obese; no acute distress Eyes: PERRL, conjunctivae normal, anicteric sclerae Respiratory: normal respiratory effort, lungs clear to auscultation Cardiovascular: RRR, no murmur, no edema Musculoskeletal: Knee: + limited ROM of knee (Left knee in immobilizer) and + joint line tenderness Neurologic: Speech / Cognition: + abnormal speech (Moderate dysarthria.) Motor/Sensory: + tremor (Resting tremor most notable in the left hand) Results & Data Results & Data ([facility]) Vital Signs (Past 12 Hours) Vital Signs Temp Pulse Resp BP Pulse Ox 03/19/21 00:12 37.0 C 80 17 158/80 H 92 Resident Activity Tracking Resident Involvement: Resident Care Provided Care Provided: Adult Hospital Medicine
[2021-03-19] MEDS: POLYETHYLENE (MIRALAX) 17 GM PACK PO SCH (08:13)
[2021-03-19] MEDS: INSULIN ASPART PER UNIT SC SCH ×4 (09:45→21:08)
[2021-03-19] MEDS: FAMOTIDINE 40 MG TABLET PO SCH (09:51)
[2021-03-19] MEDS: METOPROLOL SUCC 25MG EXT REL TAB PO SCH (09:51)
[2021-03-19] MEDS: CHOLECALCIFEROL 1,000 UNITS 25 MCG TAB PO SCH (09:51)
[2021-03-19] MEDS: levETIRAcetam 500 MG TAB PO SCH ×2 (09:51→21:13)
[2021-03-19] MEDS: OXYBUTYNIN CHLORIDE 5 MG TAB PO SCH ×2 (09:51→21:12)
[2021-03-19] MEDS: MAGNESIUM OXIDE 400 MG TAB PO SCH (09:51)
[2021-03-19] MEDS: CYANOCOBALAMIN (B-12) 500 MCG TABLET PO SCH (09:51)
[2021-03-19] MEDS: VENLAFAXINE HCL XR 150 MG CAPXR PO SCH (09:51)
[2021-03-19] MEDS: LIDOCAINE 5% 1 PATCH TD SCH (09:52)
[2021-03-19] MEDS: ENOXAPARIN INJ 40 MG/0.4 ML SYR SQ SCH (09:52)
[2021-03-19] MEDS: dilTIAZem HCL 180 MG CAPCR PO SCH (09:52)
[2021-03-19] MEDS: CETIRIZINE HCL 10 MG TABLET PO SCH (09:52)
[2021-03-19] MEDS: PREGABALIN 150 MG CAP PO SCH ×2 (09:53→21:09)
[2021-03-19] MEDS: INSULIN GLARGINE SOLOSTAR 100 UNITS/ML 3 ML PEN SC SCH ×2 (10:46→21:09)
[2021-03-19] MEDS: NYSTATIN CR 15 GM TUBE EXT SCH ×2 (13:56→21:13)
[2021-03-19] MEDS: ATORVASTATIN 20 MG TAB PO SCH (21:12)
[2021-03-19] MEDS: DOCUSATE SODIUM 100 MG CAP PO SCH (21:12)
[2021-03-20] MEDS: DICLOFENAC SOD 1% GEL 100 GM TUBE EXT SCH ×3 (06:09→21:18)
[2021-03-20] MEDS: dilTIAZem HCL 180 MG CAPCR PO SCH (07:35)
[2021-03-20] MEDS: METOPROLOL SUCC 25MG EXT REL TAB PO SCH (07:35)
[2021-03-20 07:48] LABS: Hematocrit (blood only) 37.9 % (37-47); Hemoglobin 11.5 g/dL (12.0-16.0); Mean Corpuscular Hemoglobin 24.2 pg (25-34); Mean Corpuscular Hgb Conc 30.3 g/dL (32-36); Mean Corpuscular Volume 79.6 fL (80-100); Mean Platelet Volume 9.6 fL (7.4-10.4); Platelet Count 459 K/uL (130-400); RDW Coefficient of Variation 18.1 % (11.5-14.5); RDW Standard Deviation 52.5 fL (36.4-46.3); Red Blood Count 4.76 M/uL (4.2-5.4); White Blood Count 6.84 K/uL (4.8-10.8)
[2021-03-20 08:10] LABS: BUN Creatinine Ratio 23.6 (10-20); Calcium 9.3 mg/dl (8.5-10.1); Creatinine Clr Calc Pharmacy 103.9 ml/min; Est GFR (African American) 107.1 ml/min; Est GFR (Non-African American) 92.4 ml/min; Potassium 3.6 mmol/L (3.5-5.1)
[2021-03-20] MEDS: CETIRIZINE HCL 10 MG TABLET PO SCH (08:23)
[2021-03-20] MEDS: MAGNESIUM OXIDE 400 MG TAB PO SCH (08:23)
[2021-03-20] MEDS: CHOLECALCIFEROL 1,000 UNITS 25 MCG TAB PO SCH (08:23)
[2021-03-20] MEDS: ENOXAPARIN INJ 40 MG/0.4 ML SYR SQ SCH (08:24)
[2021-03-20] MEDS: LIDOCAINE 5% 1 PATCH TD SCH (08:24)
[2021-03-20] MEDS: levETIRAcetam 500 MG TAB PO SCH ×2 (08:24→21:16)
[2021-03-20] MEDS: POLYETHYLENE (MIRALAX) 17 GM PACK PO SCH (08:25)
[2021-03-20] MEDS: OXYBUTYNIN CHLORIDE 5 MG TAB PO SCH ×2 (08:25→21:16)
[2021-03-20] MEDS: FAMOTIDINE 40 MG TABLET PO SCH (08:25)
[2021-03-20] MEDS: NYSTATIN CR 15 GM TUBE EXT SCH ×2 (08:27→21:18)
[2021-03-20] MEDS: VENLAFAXINE HCL XR 150 MG CAPXR PO SCH (08:27)
[2021-03-20] MEDS: PREGABALIN 150 MG CAP PO SCH ×2 (08:39→21:16)
[2021-03-20] MEDS: INSULIN GLARGINE SOLOSTAR 100 UNITS/ML 3 ML PEN SC SCH ×2 (08:54→21:16)
[2021-03-20] MEDS: INSULIN ASPART PER UNIT SC SCH ×4 (08:57→21:17)
[2021-03-20] MEDS: CYANOCOBALAMIN (B-12) 500 MCG TABLET PO SCH (09:58)
--- NOTE | 2021-03-20 10:51 | Hospitalist Progress Note ---
Date of Service March 20, 2021 Assessment & Plan (1) Ambulatory dysfunction: Plan: 75 yo F Hx DM2, cerebral aneurysm s/p repair, HTN, dementia, seizures admitted for deconditioning and fall with left knee injury. Fall, weakness, left MCL injury: - Fall occurred in the middle of the night when aids were not in-house. - CT Head without evidence of stroke or bleeding. - No metabolic findings suggestive of cause of fall. - Ultimately suspect deconditioning and minimal ambulation at home as cause of fall. - CT Left knee with bony fragments consistent with MCL injury; had hinged knee brace placed 03/20. - Will need outpatient follow up in short order with Orthopedics. - Continue PT/OT. Encouraged ambulation as able, and out of bed to chair for meals. - Patient denied acute rehab stay by insurance, therefore pursuing SNF placement. - Tylenol and lidocaine patches as needed for knee pain; good pain control at this time. DM2: - Basal/bolus insulin. - Diabetic diet. Hypertension: - Continue home metoprolol and diltiazem. Seizure disorder: - Continue home Keppra 500 mg p.o. twice daily. GERD: - Continue famotidine. - Holding PPI given hypomagnesemia on admission. Code Status: Conditional Code; no intubation, all other interventions okay FEN: DM2 diet DVT prophylaxis: Lovenox daily Dispo: Med/Surg (2) T2DM (type 2 diabetes mellitus): (3) Hypertension: (4) Seizure: (5) Knee pain: Admission and Anticipated Discharge Date Admission Date: March 17, 2021 Supervising Physician Co-Signing Physician Notes Patient seen and examined independently of PGY-3 Dr. Miranda. Agree with history, exam findings, assessment, and plan of care as outlined. In brief, Ms. Kenny is a 75 year old female with hx of DM2, cerebral aneurysm s/p repair, HTN, dementia, and seizures admitted following a fall and left knee injury. Doing well. Has noticed that she has difficulty with the large knee immobilizer. Would be interested in a smaller brace. VS and nursing notes reviewed. Well appearing. Heart with regular rate and rhythm. Lungs are clear to auscultation in all lung lomas. Left knee with mild effusion; tender over the medial joint line. MCL and LCL testing deferred to pain. Neurovascularly in tact in the distal lower extremities. Skin beneath the breast is erythematous with satellite lesions; slightly macerated in the fold. Labs and imaging reviewed. 1. Fall. Unclear etiology. Likely mechanical. 2. Left knee injury. Knee x-ray and CT consistent with MCL injury. Switch to hinged knee braceappreciate orthotics recslock in extension. PT/OT. 3. DM2. Basal bolus insulin. 4. HTN. Continue metoprolol and diltiazem. 5. Intertrigo. Start topical nystatin. Keep area dry. 6. Seizure disorder. Continue home Keppra 500mg BID. 7. GERD. Replaced PPI with famotidine due to hypomagnesemia. 8. Hypomagnesemia. Repleted. Continue with mag oxide 400mg daily. [facility] I discussed with her that she needs 24 hour supervision and assistance in the short term and that it is NOT safe for her to return home as she is at risk for another fall, especially with her knee injury. At worse, should she have another fall, she would be at risk of hitting her head, potentially have a bleed, or falling and breaking her hip. At best, if she fell again, she would end up in the hospital again. Subjective Patient without acute events overnight. Worked with PT today and did fairly well, they recommend she continue this and go to SNF on discharge. Review of Systems Review of Systems: All systems reviewed & are unremarkable except as noted in HPI & below Physical Exam Constitutional: WD/WN, vitals as above + obese; no acute distress Respiratory: normal respiratory effort, lungs clear to auscultation Cardiovascular: RRR, no murmur, no edema Gastrointestinal (Abdomen): normal bowel sounds, soft, nontender, no hepatosplenomegaly Musculoskeletal: Knee: + limited ROM of knee (Left knee in immobilizer) and + joint line tenderness Skin: no rashes, warm and dry Neurologic: Speech / Cognition: + abnormal speech (Dysarthria) Motor/Sensory: + tremor (Resting tremor of the hands) Results & Data Results & Data ([facility]) Vital Signs (Past 12 Hours) Vital Signs Temp Pulse Resp BP BP Pulse Ox 03/20/21 07:14 36.5 C 70 16 189/74 H 90 03/19/21 23:47 36.8 C 76 18 175/78 H 92 Resident Activity Tracking Resident Involvement: Resident Care Provided Care Provided: Adult Hospital Medicine
[2021-03-20] MEDS: DOCUSATE SODIUM 100 MG CAP PO SCH (21:15)
[2021-03-20] MEDS: ATORVASTATIN 20 MG TAB PO SCH (21:15)
[2021-03-21] MEDS: DICLOFENAC SOD 1% GEL 100 GM TUBE EXT SCH ×3 (05:56→21:00)
--- NOTE | 2021-03-21 07:07 | Hospitalist Progress Note ---
Date of Service March 21, 2021 Assessment & Plan (1) Ambulatory dysfunction: Plan: 75 yo F Hx DM2, cerebral aneurysm s/p repair, HTN, dementia, seizures admitted for deconditioning and fall with left knee injury. Fall, weakness, left MCL injury: - Fall occurred in the middle of the night when aids were not in-house. - CT Head without evidence of stroke or bleeding. - No metabolic findings suggestive of cause of fall. - Ultimately suspect deconditioning and minimal ambulation at home as cause of fall. - CT Left knee with bony fragments consistent with MCL injury; had hinged knee brace placed 03/20. - Will need outpatient follow up in short order with Orthopedics. - Continue PT/OT. Encouraged ambulation as able, and out of bed to chair for meals. - Conversation necessary with patient's family (daughter Shila: [phone]) as patient will require 24-hour supervision upon discharge, which they are currently not capable of providing. - Patient denied acute rehab stay by insurance, therefore pursuing SNF placement. Will need to follow-up again with case management AFTER speaking with family as her family did not want SNF placement. - Tylenol and lidocaine patches as needed for knee pain; good pain control at this time. DM2: - Basal/bolus insulin. - Diabetic diet. Hypertension: - Continue home metoprolol and diltiazem. Seizure disorder: - Continue home Keppra 500 mg p.o. twice daily. GERD: - Continue famotidine. - Holding PPI given hypomagnesemia on admission. Code Status: Conditional Code; no intubation, all other interventions okay FEN: DM2 diet DVT prophylaxis: Lovenox daily Dispo: Med/Surg (2) T2DM (type 2 diabetes mellitus): (3) Hypertension: (4) Seizure: (5) Knee pain: Admission and Anticipated Discharge Date Admission Date: March 17, 2021 Supervising Physician Co-Signing Physician Notes Attending attestation Pt seen and examined in concert with Dr. Phillips. In agreement with the documented findings as noted in the resident documentation with any exceptions or additions as noted here. 75 year old female with hx of DM2, cerebral aneurysm s/p repair, HTN, dementia, and seizures admitted following a fall and left knee injury. Resting comfortably in bed but required clarification regarding goals of care and preference for re-assurance that SNF would be preferred though if unable would have to discuss with daughter re: appropriate 24 hour care during recovery with knee injury. On examination, S1/S2 nl RRR no MCG. CTAB. Abd NT/ND BS+ve. VS, nursing notes, labs and imaging reviewed. Fall with left knee injury - imaging c/w MCL injury - w/ hinged knee brace in extension. PT/OT onboard. Intertrigo - continue topical nystatin and skin care. Dispo: discussion with daughter re: goals of care and placement and coordinate with case management Subjective No acute events overnight. Patient has no subjective complaints today. She reports occasional pain in her knee that is well controlled on pain medications at present. She is of the understanding that she will be discharged home. However, after discussions about the increased risk of injury should that occur, she is aware that her discharge to SNF is for the best. She would like this physician to update her daughter, Shila ([phone]). Review of Systems Review of Systems: All systems reviewed & are unremarkable except as noted in HPI & below Physical Exam Constitutional: WD/WN, vitals as above Respiratory: normal respiratory effort, lungs clear to auscultation Cardiovascular: RRR, no murmur, no edema Gastrointestinal (Abdomen): normal bowel sounds, soft, nontender, no hepatosplenomegaly Musculoskeletal: Knee: + knee abnormal to inspection (Left knee in knee brace) and + joint line tenderness Results & Data Results & Data ([facility]) Vital Signs (Past 12 Hours) Vital Signs Temp Pulse Resp BP Pulse Ox 03/21/21 06:49 36.8 C 65 16 169/77 H 92 03/20/21 22:14 36.9 C 94 H 18 153/76 H 90 Resident Activity Tracking Resident Involvement: Resident Care Provided Care Provided: Adult Hospital Medicine
[2021-03-21] MEDS: POLYETHYLENE (MIRALAX) 17 GM PACK PO SCH (08:32)
[2021-03-21] MEDS: CETIRIZINE HCL 10 MG TABLET PO SCH (08:33)
[2021-03-21] MEDS: FAMOTIDINE 40 MG TABLET PO SCH (08:33)
[2021-03-21] MEDS: METOPROLOL SUCC 25MG EXT REL TAB PO SCH (08:33)
[2021-03-21] MEDS: CYANOCOBALAMIN (B-12) 500 MCG TABLET PO SCH (08:33)
[2021-03-21] MEDS: LIDOCAINE 5% 1 PATCH TD SCH (08:33)
[2021-03-21] MEDS: dilTIAZem HCL 180 MG CAPCR PO SCH (08:33)
[2021-03-21] MEDS: CHOLECALCIFEROL 1,000 UNITS 25 MCG TAB PO SCH (08:34)
[2021-03-21] MEDS: MAGNESIUM OXIDE 400 MG TAB PO SCH (08:34)
[2021-03-21] MEDS: OXYBUTYNIN CHLORIDE 5 MG TAB PO SCH ×2 (08:34→20:59)
[2021-03-21] MEDS: VENLAFAXINE HCL XR 150 MG CAPXR PO SCH (08:34)
[2021-03-21] MEDS: levETIRAcetam 500 MG TAB PO SCH ×2 (08:34→20:58)
[2021-03-21] MEDS: ENOXAPARIN INJ 40 MG/0.4 ML SYR SQ SCH (08:35)
[2021-03-21] MEDS: NYSTATIN CR 15 GM TUBE EXT SCH ×2 (08:35→20:59)
[2021-03-21] MEDS: INSULIN GLARGINE SOLOSTAR 100 UNITS/ML 3 ML PEN SC SCH ×2 (08:39→20:59)
[2021-03-21] MEDS: INSULIN ASPART PER UNIT SC SCH ×4 (08:44→20:59)
[2021-03-21] MEDS: PREGABALIN 150 MG CAP PO SCH ×2 (08:45→20:58)
[2021-03-21] MEDS: ACETAMINOPHEN 325 MG TAB PO PRN (16:45)
[2021-03-21] MEDS: DOCUSATE SODIUM 100 MG CAP PO SCH (20:58)
[2021-03-21] MEDS: ATORVASTATIN 20 MG TAB PO SCH (20:58)
[2021-03-22] MEDS: DICLOFENAC SOD 1% GEL 100 GM TUBE EXT SCH ×3 (06:06→21:19)
--- NOTE | 2021-03-22 07:41 | Hospitalist Progress Note ---
Date of Service March 22, 2021 Assessment & Plan (1) Ambulatory dysfunction: Plan: 75 yo F Hx DM2, cerebral aneurysm s/p repair, HTN, dementia, seizures admitted for deconditioning and fall with left knee injury. Fall, weakness, left MCL injury: - Fall occurred in the middle of the night when aids were not in-house. - CT Head without evidence of stroke or bleeding. - No metabolic findings suggestive of cause of fall. - Ultimately suspect deconditioning and minimal ambulation at home as cause of fall. - CT Left knee with bony fragments consistent with MCL injury; had hinged knee brace placed 03/20. - Will need outpatient follow up in short order with Orthopedics. - Continue PT/OT. Encouraged ambulation as able, and out of bed to chair for meals. - Conversation necessary with patient's family (daughter Shila: [phone]) as patient will require 24-hour supervision upon discharge, which they are currently not capable of providing. --> per Dr. Phillips family has agreed with need for SNF rehab - Patient denied acute rehab stay by insurance, therefore pursuing SNF placement. Will need to follow-up again with case management AFTER speaking with family as her family did not want SNF placement. --> patient has agreed with need for SNF rehab - management updated on patient and family preference - Tylenol and lidocaine patches as needed for knee pain; good pain control at this time. DM2: - Basal/bolus insulin. - Diabetic diet. HLD -continue atorvastatin Neuropathy -continue pregabalin, venlafaxine Hypertension: - Continue home metoprolol and diltiazem. Seizure disorder: - Continue home Keppra 500 mg p.o. twice daily. GERD: - Continue famotidine. - Holding PPI given hypomagnesemia on admission. Code Status: Conditional Code; no intubation, all other interventions okay FEN: DM2 diet DVT prophylaxis: Lovenox daily Dispo: Med/Surg (2) T2DM (type 2 diabetes mellitus): (3) Hypertension: (4) Seizure: (5) Knee pain: Admission and Anticipated Discharge Date Admission Date: March 17, 2021 Supervising Physician Co-Signing Physician Notes Attending attestation Pt seen and examined in concert with Dr. Cain. In agreement with the documented findings as noted in the resident documentation with any exceptions or additions as noted here. 75 year old female with hx of DM2, cerebral aneurysm s/p repair, HTN, dementia, and seizures admitted following a fall and left knee injury. Left knee pain is improved overall from previous and tolerating work with PT and walking to restroom. Ongoing confusion re: SNF vs. home - reviewed that it will depend on placement availability and available home resources. On examination, S1/S2 nl RRR no MCG. CTAB. Abd NT/ND BS+ve. VS, nursing notes, labs and imaging reviewed. Fall with left knee injury - imaging c/w MCL injury - w/ hinged knee brace in extension. PT/OT onboard. Intertrigo - continue topical nystatin and skin care. Dispo: coordinate with case management Subjective 75yo Female here for left MCL tear seen at bedside, calm comfortable cooperative. Patient states she has been eating sleeping well. Patient and family has had extensive discussion regarding need for 24hr care and need for inpatient rehab, they agree with the need for inpatient rehab. She complains of b/l knee pain on palpation, otherwise her knee has been doing better, she is cooperating with PT. Patient states she is worried for her sister who is also hospitalized with COVID. Review of Systems Review of Systems: Negative fever chills Negative headache dizziness Negative chest pain palpitations SOB Negative nausea vomitting diarrhea constipation Physical Exam Constitutional: WD/WN, vitals as above + morbidly obese, cooperative and comfortable Eyes: PERRL, conjunctivae normal, anicteric sclerae ENMT: external ear and nose normal, oropharynx normal Neck: trachea midline, no thyromegaly Respiratory: normal respiratory effort, lungs clear to auscultation Cardiovascular: Rate/Rhythm: regular rate and regular rhythm Heart Sounds: + murmur (systolic) Chest (Breasts): Chest: normal inspection of chest Gastrointestinal (Abdomen): normal bowel sounds, soft, nontender, no hepatosplenomegaly Musculoskeletal: Extremities: + lower leg abnormality Left (left knee in brace) Skin: no rashes, warm and dry Results & Data Results & Data ([facility]) Vital Signs (Past 12 Hours) Vital Signs Temp Pulse Resp BP BP Pulse Ox 03/22/21 08:21 36.7 C 72 18 181/90 H 90 03/21/21 15:13 36.7 C 70 18 147/84 H 90 Intake and Output 03/21/21 03/22/21 03/22/21 22:59 06:59 14:59 Intake Total 960 / 1680 Balance 960 / 1680 Intake: Oral 960 / 1680 Other: # Unmeasured Voids 1 1 Laboratory Results 03/22/21 03/22/21 03/22/21 Range/Units 12:02 08:11 07:50 Sodium 138 (136-145) mmol/L Potassium 4.0 (3.5-5.1) mmol/L Chloride 104 (98-107) mmol/L Carbon Dioxide 27 (21-32) mmol/L Anion Gap 7 (3-11) BUN 13 (6-23) mg/dl Creatinine 0.63 (0.6-1.2) mg/dl Est Cr Clr Drug Dosing 90.7 ml/min Est GFR ( Amer) 102.4 ml/min Est GFR (Non-Af Amer) 88.4 ml/min BUN/Creatinine Ratio 20.6 H (10-20) Glucose 171 H (70-99(Fasting)) mg/dl POC Glucose 211 H 170 H (70-99) mg/dl Calcium 8.9 (8.5-10.1) mg/dl 03/21/21 03/21/21 Range/Units 20:29 17:04 Sodium (136-145) mmol/L Potassium (3.5-5.1) mmol/L Chloride (98-107) mmol/L Carbon Dioxide (21-32) mmol/L Anion Gap (3-11) BUN (6-23) mg/dl Creatinine (0.6-1.2) mg/dl Est Cr Clr Drug Dosing ml/min Est GFR ( Amer) ml/min Est GFR (Non-Af Amer) ml/min BUN/Creatinine Ratio (10-20) Glucose (70-99(Fasting)) mg/dl POC Glucose 162 H 125 H (70-99) mg/dl Calcium (8.5-10.1) mg/dl Diagnostic Findings Impressions Chest X-Ray 03/14/21 16:15 XR chest 1V portable CLINICAL HISTORY: weakness, fall COMPARISON STUDY: Chest radiograph and chest CT March 01, 2021. FINDINGS: There is no pneumothorax or pleural effusion. A hiatal hernia is noted. Cardiomegaly is noted. There is no evidence for pulmonary edema. Right basilar opacity is again noted. This is either unchanged or slightly improved since prior examination. Left lung is clear. IMPRESSION: 1. Persistent right basilar opacity, mildly improved since prior exam. Continue radiographic follow-up to ensure complete resolution is recommended. 2. Cardiomegaly without evidence for pulmonary edema. 3. Hiatal hernia. ACT 112: Negative or not required by law. Electronically signed by: Alejo No M.D. 03/14/2021 5:53 PM Femur X-Ray 03/14/21 16:15 XR femur LT 2V routine CLINICAL HISTORY: fall, left leg pain COMPARISON: CT of the left hip and left hip radiographs September 21, 2020. FINDINGS: No definite acute fracture within the left femur is noted. Alignment of the left hip and left knee appears anatomic. Left knee joint effusion is noted. There is cortical irregularity of the medial femoral condyle. In addition, there is a lucency within the patella. IMPRESSION: 1. Cortical irregularity of the left medial femoral condyle. This is probably a rtifactual however an acute fracture cannot be completely excluded. 2. Lucency within the patella. Again, artifact is favored however a nondisplaced fracture could appear similar. CT of the left knee could be obtained for further evaluation. 3. Moderate size left knee joint effusion. ACT 112: Negative or not required by law. Electronically signed by: Alejo No M.D. 03/14/2021 5:51 PM Knee X-Ray 03/14/21 16:15 XR knee LT 3V CLINICAL HISTORY: fall, knee pain COMPARISON: None FINDINGS: There is cortical irregularity of the left medial femoral condyle. A moderate-sized left knee joint effusion is noted without lipohemarthrosis. There is a lucency within the patella. IMPRESSION: 1. Cortical irregularity of the left medial femoral condyle. This is probably artifactual however an acute fracture cannot be completely excluded. 2. Lucency within the patella. Again, artifact is favored however a nondisplaced fracture could appear similar. CT of the left knee could be obtained for further evaluation. 3. Moderate size left knee joint effusion. ACT 112: Negative or not required by law. Electronically signed by: Alejo No M.D. 03/14/2021 5:52 PM Pelvis X-Ray 03/14/21 16:15 XR pelvis 1-2V routine CLINICAL HISTORY: Left leg pain following fall. COMPARISON: CT of the left hip and left hip radiographs September 21, 2020. FINDINGS: Sacroiliac joints and symphysis pubis are intact. There is no acute fracture within the pelvis or hips. Pelvic calcifications favor phleboliths. IMPRESSION: No acute fracture within the pelvis or hips. ACT 112: Negative or not required by law. Electronically signed by: Alejo No M.D. 03/14/2021 5:[address] 03/14/21 17:55 CT OF THE LEFT KNEE WITHOUT CONTRAST CLINICAL HISTORY: left knee injury, possible fx COMPARISON STUDY: Left knee radiographs September 21, 2020 and March 14, 2021. TECHNIQUE: Axial images of the left knee were obtained without IV contrast. Sagittal and coronal reconstructions were viewed. Automated exposure control was utilized for the study. A dose lowering technique was utilized adhering to the principles of ALARA. FINDINGS: A moderate size left knee joint effusion is noted. There is no lipohemarthrosis. A few bone fragments along the medial femoral condyle measure up to 8 mm. These suggest avulsed bone fragments. No additional fractures are identified on this examination. There is mild left knee osteophytosis. Mild medial compartment joint space narrowing of the left knee is noted. No soft tissue gas is present. There is moderate vascular calcification. IMPRESSION: 1. A few bone fragments along the medial femoral condyle which correspond to the finding on radiographs. These represent small avulsed bone fragments and may be acute. These could be seen in the setting of MCL injury. 2. Moderate-sized left knee joint effusion. ACT 112: Negative or not required by law. Electronically signed by: Alejo No M.D. 03/14/2021 7:[address] 03/14/21 22:03 CT head/brain wo con CLINICAL HISTORY: fall, may have hit head, on antiplatelet . Confusion and weakness COMPARISON STUDY: 03/01/2021 CT DOSE: 614.27 mGy.cm TECHNIQUE: Standard CT of the Brain was performed without IV contrast. A dose lowering technique was utilized adhering to the principles of ALARA. FINDINGS: Extraaxial space: There is no evidence for subdural hematoma. There are no extra-axial fluid collections. Ventricles and cisterns: The ventricles are mildly dilated bilaterally. There is no evidence for midline shift or mass effect. Parenchyma: There is no subarachnoid or intraparenchymal hemorrhage. There is no evidence for an acute infarct or cerebral edema. There is mild cerebral cortical atrophy and decreased attenuation in the periventricular white matter representing remote small vessel disease. The patient is again status post left temporoparietal craniotomy with surgical clips seen in the left temporal lobe, unchanged. There are no gross mass lesions. Osseous structures: There is no evidence for an acute fracture. The visualized paranasal sinuses are clear. The mastoid air cells are clear bilaterally. Soft tissues: There is no evidence for focal soft tissue swelling. IMPRESSION: No acute intracerebral pathology. Cerebral cortical atrophy and remote small vessel disease are again seen. Postsurgical changes are also again noted involving the left temporal parietal lobe. ACT 112: Negative or not required by law. Electronically signed by: Rishi Alfredo M.D. 03/14/2021 10:56 PM Medications Administered Current Inpatient Medications Acetaminophen (Acetaminophen 325 Mg Tab) 650 mg PO Q4H PRN PRN Reason: pain/fever Stop: 04/13/21 21:50 Last Admin: 03/22/21 09:57 Dose: 650 mg Documented by: Atorvastatin Calcium (Atorvastatin 20 Mg Tab) 20 mg PO HS EVELIO Stop: 04/13/21 22:59 Last Admin: 03/21/21 20:58 Dose: 20 mg Documented by: Cetirizine HCl (Cetirizine Hcl 10 Mg Tablet) 10 mg PO DAILY EVELIO Stop: 04/14/21 08:59 Last Admin: 03/22/21 08:31 Dose: 10 mg Documented by: Cyanocobalamin (Cyanocobalamin 500 Mcg Tablet (Vitamin B-12)) 1,000 mcg PO DAILY EVELIO Stop: 04/14/21 08:59 Last Admin: 03/22/21 08:32 Dose: 1,000 mcg Documented by: Dextrose (Dextrose 50% 50 Ml Syringe) 25 - 50 ml IV UD PRN; Protocol PRN Reason: Hypoglycemia Protocol Stop: 04/13/21 21:54 Diclofenac Sodium (Diclofenac Sod 1% Gel 100 Gm Tube) 4 gm EXT Q8 EVELIO Stop: 04/13/21 22:29 Last Admin: 03/22/21 12:57 Dose: 4 gm Documented by: Diltiazem HCl (Diltiazem Hcl 180 Mg Capcr) 180 mg PO QAM EVELIO Stop: 04/14/21 08:59 Last Admin: 03/22/21 08:31 Dose: 180 mg Documented by: Docusate Sodium (Docusate Sodium 100 Mg Cap) 200 mg PO HS [facility] Stop: 04/13/21 22:59 Last Admin: 03/21/21 20:58 Dose: 200 mg Documented by: Enoxaparin Sodium (Enoxaparin Inj 40 Mg/0.4 Ml Syr) 40 mg SQ QAM [facility] Stop: 04/16/21 08:59 Last Admin: 03/22/21 08:33 Dose: 40 mg Documented by: Famotidine (Famotidine 40 Mg Tablet) 40 mg PO QAM [facility] Stop: 04/14/21 08:59 Last Admin: 03/22/21 08:33 Dose: 40 mg Documented by: Glucagon (Glucagon For Inj 1 Mg Vial) 1 mg SQ UD PRN; Protocol PRN Reason: Hypoglycemia Protocol Stop: 04/13/21 21:54 Glucose (Glucose 10 Tabs/Tube) 4 - 8 tabs PO UD PRN; Protocol PRN Reason: Hypoglycemia Protocol Stop: 04/13/21 21:54 Glucose (Glucose 40% Gel 15 Gm Tube) 15 - 30 gm PO UD PRN; Protocol PRN Reason: Hypoglycemia Protocol Stop: 04/13/21 21:54 Insulin Aspart (Insulin Aspart Per Unit) 0 units SC ACHS [facility] Stop: 04/13/21 20:59 Last Admin: 03/22/21 12:54 Dose: 9 units Documented by: Insulin Glargine (Insulin Glargine Solostar 100 Units/Ml 3 Ml Pen) 30 units SC BID [facility] Stop: 04/13/21 20:59 Last Admin: 03/22/21 08:43 Dose: 30 units Documented by: Levetiracetam (Levetiracetam 500 Mg Tab) 500 mg PO BID [facility] Stop: 04/13/21 22:59 Last Admin: 03/22/21 08:33 Dose: 500 mg Documented by: Lidocaine (Lidocaine 5% 1 Patch) 1 patch TD [facility] Stop: 04/14/21 08:59 Last Admin: 03/22/21 08:32 Dose: 1 patch Documented by: Magnesium Oxide (Magnesium Oxide 400 Mg Tab) 400 mg PO QAM [facility] Stop: 04/14/21 08:59 Last Admin: 03/22/21 08:31 Dose: 400 mg Documented by: Metoprolol Succinate (Metoprolol Succ 25mg Ext Rel Tab) 25 mg PO DAILY EVELIO Stop: 04/14/21 08:59 Last Admin: 03/22/21 08:31 Dose: 25 mg Documented by: Miscellaneous (Carbohydrates For Hypoglycemia ) 15 - 30 gm PO UD PRN PRN Reason: Hypoglycemia Protocol Stop: 04/13/21 21:54 Miscellaneous (Remove Lidoderm Patch) 1 ea N/A DAILY@2100 EVELIO Stop: 04/14/21 20:59 Last Admin: 03/21/21 21:00 Dose: 1 ea Documented by: Nystatin (Nystatin Cr 15 Gm Tube) 1 appln EXT BID EVELIO Stop: 04/18/21 11:44 Last Admin: 03/22/21 08:34 Dose: 1 appln Documented by: Ondansetron HCl (Ondansetron Inj 2 Mg/Ml 2 Ml Vial) 4 mg IV Q6H PRN PRN Reason: Nausea Stop: 04/13/21 21:54 Oxybutynin Chloride (Oxybutynin Chloride 5 Mg Tab) 5 mg PO BID EVELIO Stop: 04/13/21 22:59 Last Admin: 03/22/21 08:34 Dose: 5 mg Documented by: Polyethylene Glycol (Polyethylene (Miralax) 17 Gm Pack) 17 gm PO QAM [facility] Stop: 04/14/21 08:59 Last Admin: 03/22/21 08:30 Dose: 17 gm Documented by: Pregabalin (Pregabalin 150 Mg Cap) 150 mg PO BID [facility] Stop: 04/13/21 22:29 Last Admin: 03/22/21 08:35 Dose: 150 mg Documented by: Venlafaxine HCl (Venlafaxine Hcl Xr 150 Mg Capxr) 150 mg PO QAM EVELIO Stop: 04/14/21 08:59 Last Admin: 03/22/21 08:33 Dose: 150 mg Documented by: Vitamin D (Cholecalciferol 1,000 Units 25 Mcg Tab) 2,000 units PO QAM [facility] Stop: 04/14/21 08:59 Last Admin: 03/22/21 08:31 Dose: 2,000 units Documented by: Resident Activity Tracking Resident Involvement: Resident Care Provided Care Provided: Adult Hospital Medicine
[2021-03-22] MEDS: POLYETHYLENE (MIRALAX) 17 GM PACK PO SCH (08:30)
[2021-03-22] MEDS: CHOLECALCIFEROL 1,000 UNITS 25 MCG TAB PO SCH (08:31)
[2021-03-22] MEDS: dilTIAZem HCL 180 MG CAPCR PO SCH (08:31)
[2021-03-22] MEDS: CETIRIZINE HCL 10 MG TABLET PO SCH (08:31)
[2021-03-22] MEDS: MAGNESIUM OXIDE 400 MG TAB PO SCH (08:31)
[2021-03-22] MEDS: METOPROLOL SUCC 25MG EXT REL TAB PO SCH (08:31)
[2021-03-22] MEDS: LIDOCAINE 5% 1 PATCH TD SCH (08:32)
[2021-03-22] MEDS: CYANOCOBALAMIN (B-12) 500 MCG TABLET PO SCH (08:32)
[2021-03-22] MEDS: ENOXAPARIN INJ 40 MG/0.4 ML SYR SQ SCH (08:33)
[2021-03-22] MEDS: levETIRAcetam 500 MG TAB PO SCH ×2 (08:33→19:58)
[2021-03-22] MEDS: FAMOTIDINE 40 MG TABLET PO SCH (08:33)
[2021-03-22] MEDS: VENLAFAXINE HCL XR 150 MG CAPXR PO SCH (08:33)
[2021-03-22] MEDS: NYSTATIN CR 15 GM TUBE EXT SCH ×2 (08:34→19:58)
[2021-03-22] MEDS: OXYBUTYNIN CHLORIDE 5 MG TAB PO SCH ×2 (08:34→19:58)
[2021-03-22] MEDS: PREGABALIN 150 MG CAP PO SCH ×2 (08:35→19:58)
[2021-03-22] MEDS: INSULIN GLARGINE SOLOSTAR 100 UNITS/ML 3 ML PEN SC SCH ×2 (08:43→21:19)
[2021-03-22] MEDS: INSULIN ASPART PER UNIT SC SCH ×4 (08:48→21:18)
[2021-03-22 09:52] LABS: BUN Creatinine Ratio 20.6 (10-20); Calcium 8.9 mg/dl (8.5-10.1); Creatinine Clr Calc Pharmacy 90.7 ml/min; Est GFR (African American) 102.4 ml/min; Est GFR (Non-African American) 88.4 ml/min
[2021-03-22] MEDS: ACETAMINOPHEN 325 MG TAB PO PRN (09:57)
[2021-03-22] MEDS: ATORVASTATIN 20 MG TAB PO SCH (19:57)
[2021-03-22] MEDS: DOCUSATE SODIUM 100 MG CAP PO SCH (19:57)
[2021-03-23] MEDS: DICLOFENAC SOD 1% GEL 100 GM TUBE EXT SCH ×3 (06:15→22:12)
--- NOTE | 2021-03-23 08:08 | Hospitalist Progress Note ---
Date of Service March 23, 2021 Assessment & Plan (1) Ambulatory dysfunction: Plan: 75 yo F Hx DM2, cerebral aneurysm s/p repair, HTN, dementia, seizures admitted for deconditioning and fall with left knee injury. Fall, weakness, left MCL injury: - Fall occurred in the middle of the night when aids were not in-house. - CT Head without evidence of stroke or bleeding. - No metabolic findings suggestive of cause of fall. - Ultimately suspect deconditioning and minimal ambulation at home as cause of fall. - CT Left knee with bony fragments consistent with MCL injury; had hinged knee brace placed 03/20. - Will need outpatient follow up in short order with Orthopedics. - Continue PT/OT. Encouraged ambulation as able, and out of bed to chair for meals. - Conversation necessary with patient's family (daughter Shila: [phone]) as patient will require 24-hour supervision upon discharge--> per Dr. Phillips family has agreed with need for SNF rehab - Patient has agreed with need for SNF rehab - case management updated on patient and family preference, looking into placement at [facility] - Tylenol and lidocaine patches as needed for knee pain; good pain control at this time. DM2: - Basal/bolus insulin. - Diabetic diet. HLD -continue atorvastatin Neuropathy -continue pregabalin, venlafaxine Hypertension: - Continue home metoprolol and diltiazem. Seizure disorder: - Continue home Keppra 500 mg p.o. twice daily. GERD: - Continue famotidine. - Holding PPI given hypomagnesemia on admission. Code Status: Conditional Code; no intubation, all other interventions okay FEN: DM2 diet DVT prophylaxis: Lovenox daily Dispo: Med/Surg (2) T2DM (type 2 diabetes mellitus): (3) Hypertension: (4) Seizure: (5) Knee pain: Admission and Anticipated Discharge Date Admission Date: March 17, 2021 Supervising Physician Co-Signing Physician Notes Attending attestation Pt seen and examined in concert with Dr. Cain. In agreement with the documented findings as noted in the resident documentation with any exceptions or additions as noted here. 75 year old female with hx of DM2, cerebral aneurysm s/p repair, HTN, dementia, and seizures admitted following a fall and left knee injury. Left knee pain is stable and tolerating PT and walking to restroom. Committed to going to SNF ([facility]). Sister (who is also admitted) is also going there. They like to visit on the floors. On examination, S1/S2 nl RRR no MCG. CTAB. Abd NT/ND BS+ve. VS, nursing notes, labs reviewed. Fall with left knee injury - imaging c/w MCL injury - w/ hinged knee brace in extension. PT/OT onboard and pending placement (Referral out to [facility]) Intertrigo - continue topical nystatin and skin care. Dispo: Pending placement Subjective 75yo Female here for left MCL tear seen at bedside, calm comfortable cooperative. Patient ate well slept well, is looking forward to seeing her sister today. Patient will be going to the same rehab facility as her sister, [facility]. No additional complaints. Review of Systems Review of Systems: Negative fever chills Negative headache dizziness Negative chest pain palpitations SOB Negative nausea vomitting diarrhea constipation Physical Exam Constitutional: WD/WN, vitals as above + morbidly obese, cooperative and comfortable Eyes: PERRL, conjunctivae normal, anicteric sclerae ENMT: external ear and nose normal, oropharynx normal Neck: trachea midline, no thyromegaly Respiratory: normal respiratory effort, lungs clear to auscultation Cardiovascular: Rate/Rhythm: regular rate and regular rhythm Heart Sounds: + murmur (systolic) Chest (Breasts): Chest: normal inspection of chest Gastrointestinal (Abdomen): normal bowel sounds, soft, nontender, no hepatosplenomegaly Musculoskeletal: Extremities: + lower leg abnormality Skin: no rashes, warm and dry Results & Data Results & Data ([facility]) Vital Signs (Past 12 Hours) Vital Signs Temp Pulse Resp BP Pulse Ox 03/22/21 22:15 36.5 C 83 18 168/83 H 91 Laboratory Results 03/23/21 03/23/21 03/22/21 Range/Units 11:55 08:03 20:38 POC Glucose 189 H 168 H 180 H (70-99) mg/dl 03/22/21 Range/Units 17:08 POC Glucose 124 H (70-99) mg/dl Medications Administered Current Inpatient Medications Acetaminophen (Acetaminophen 325 Mg Tab) 650 mg PO Q4H PRN PRN Reason: pain/fever Stop: 04/13/21 21:50 Last Admin: 03/22/21 09:57 Dose: 650 mg Documented by: Atorvastatin Calcium (Atorvastatin 20 Mg Tab) 20 mg PO HS [facility] Stop: 04/13/21 22:59 Last Admin: 03/22/21 19:57 Dose: 20 mg Documented by: Cetirizine HCl (Cetirizine Hcl 10 Mg Tablet) 10 mg PO DAILY [facility] Stop: 04/14/21 08:59 Last Admin: 03/23/21 08:12 Dose: 10 mg Documented by: Cyanocobalamin (Cyanocobalamin 500 Mcg Tablet (Vitamin B-12)) 1,000 mcg PO DAILY [facility] Stop: 04/14/21 08:59 Last Admin: 03/23/21 08:11 Dose: 1,000 mcg Documented by: Dextrose (Dextrose 50% 50 Ml Syringe) 25 - 50 ml IV UD PRN; Protocol PRN Reason: Hypoglycemia Protocol Stop: 04/13/21 21:54 Diclofenac Sodium (Diclofenac Sod 1% Gel 100 Gm Tube) 4 gm EXT Q8 [facility] Stop: 04/13/21 22:29 Last Admin: 03/23/21 12:42 Dose: 4 gm Documented by: Diltiazem HCl (Diltiazem Hcl 180 Mg Capcr) 180 mg PO QAM [facility] Stop: 04/14/21 08:59 Last Admin: 03/23/21 08:12 Dose: 180 mg Documented by: Docusate Sodium (Docusate Sodium 100 Mg Cap) 200 mg PO HS [facility] Stop: 04/13/21 22:59 Last Admin: 03/22/21 19:57 Dose: 200 mg Documented by: Enoxaparin Sodium (Enoxaparin Inj 40 Mg/0.4 Ml Syr) 40 mg SQ QAM [facility] Stop: 04/16/21 08:59 Last Admin: 03/23/21 08:11 Dose: 40 mg Documented by: Famotidine (Famotidine 40 Mg Tablet) 40 mg PO QAM [facility] Stop: 04/14/21 08:59 Last Admin: 03/23/21 08:11 Dose: 40 mg Documented by: Glucagon (Glucagon For Inj 1 Mg Vial) 1 mg SQ UD PRN; Protocol PRN Reason: Hypoglycemia Protocol Stop: 04/13/21 21:54 Glucose (Glucose 10 Tabs/Tube) 4 - 8 tabs PO UD PRN; Protocol PRN Reason: Hypoglycemia Protocol Stop: 04/13/21 21:54 Glucose (Glucose 40% Gel 15 Gm Tube) 15 - 30 gm PO UD PRN; Protocol PRN Reason: Hypoglycemia Protocol Stop: 04/13/21 21:54 Insulin Aspart (Insulin Aspart Per Unit) 0 units SC ACHS [facility] Stop: 04/13/21 20:59 Last Admin: 03/23/21 12:36 Dose: 9 units Documented by: Insulin Glargine (Insulin Glargine Solostar 100 Units/Ml 3 Ml Pen) 30 units SC BID [facility] Stop: 04/13/21 20:59 Last Admin: 03/23/21 08:21 Dose: 30 units Documented by: Levetiracetam (Levetiracetam 500 Mg Tab) 500 mg PO BID [facility] Stop: 04/13/21 22:59 Last Admin: 03/23/21 08:11 Dose: 500 mg Documented by: Lidocaine (Lidocaine 5% 1 Patch) 1 patch TD QAM [facility] Stop: 04/14/21 08:59 Last Admin: 03/23/21 08:12 Dose: 1 patch Documented by: Magnesium Oxide (Magnesium Oxide 400 Mg Tab) 400 mg PO QAM [facility] Stop: 04/14/21 08:59 Last Admin: 03/23/21 08:12 Dose: 400 mg Documented by: Metoprolol Succinate (Metoprolol Succ 25mg Ext Rel Tab) 25 mg PO DAILY [facility] Stop: 04/14/21 08:59 Last Admin: 03/23/21 08:11 Dose: 25 mg Documented by: Miscellaneous (Carbohydrates For Hypoglycemia ) 15 - 30 gm PO UD PRN PRN Reason: Hypoglycemia Protocol Stop: 04/13/21 21:54 Miscellaneous (Remove Lidoderm Patch) 1 ea N/A DAILY@2100 [facility] Stop: 04/14/21 20:59 Last Admin: 03/22/21 19:58 Dose: 1 ea Documented by: Nystatin (Nystatin Cr 15 Gm Tube) 1 appln EXT BID [facility] Stop: 04/18/21 11:44 Last Admin: 03/23/21 08:10 Dose: 1 appln Documented by: Ondansetron HCl (Ondansetron Inj 2 Mg/Ml 2 Ml Vial) 4 mg IV Q6H PRN PRN Reason: Nausea Stop: 04/13/21 21:54 Oxybutynin Chloride (Oxybutynin Chloride 5 Mg Tab) 5 mg PO BID [facility] Stop: 04/13/21 22:59 Last Admin: 03/23/21 08:10 Dose: 5 mg Documented by: Polyethylene Glycol (Polyethylene (Miralax) 17 Gm Pack) 17 gm PO QAM [facility] Stop: 04/14/21 08:59 Last Admin: 03/23/21 08:12 Dose: 17 gm Documented by: Pregabalin (Pregabalin 150 Mg Cap) 150 mg PO BID [facility] Stop: 04/13/21 22:29 Last Admin: 03/23/21 08:10 Dose: 150 mg Documented by: Venlafaxine HCl (Venlafaxine Hcl Xr 150 Mg Capxr) 150 mg PO QAM [facility] Stop: 04/14/21 08:59 Last Admin: 03/23/21 08:12 Dose: 150 mg Documented by: Vitamin D (Cholecalciferol 1,000 Units 25 Mcg Tab) 2,000 units PO QAM [facility] Stop: 04/14/21 08:59 Last Admin: 03/23/21 08:11 Dose: 2,000 units Documented by: Resident Activity Tracking Resident Involvement: Resident Care Provided Care Provided: Adult Hospital Medicine
[2021-03-23] MEDS: NYSTATIN CR 15 GM TUBE EXT SCH ×2 (08:10→22:12)
[2021-03-23] MEDS: OXYBUTYNIN CHLORIDE 5 MG TAB PO SCH ×2 (08:10→22:11)
[2021-03-23] MEDS: PREGABALIN 150 MG CAP PO SCH ×2 (08:10→22:11)
[2021-03-23] MEDS: CYANOCOBALAMIN (B-12) 500 MCG TABLET PO SCH (08:11)
[2021-03-23] MEDS: CHOLECALCIFEROL 1,000 UNITS 25 MCG TAB PO SCH (08:11)
[2021-03-23] MEDS: METOPROLOL SUCC 25MG EXT REL TAB PO SCH (08:11)
[2021-03-23] MEDS: levETIRAcetam 500 MG TAB PO SCH ×2 (08:11→22:11)
[2021-03-23] MEDS: ENOXAPARIN INJ 40 MG/0.4 ML SYR SQ SCH (08:11)
[2021-03-23] MEDS: FAMOTIDINE 40 MG TABLET PO SCH (08:11)
[2021-03-23] MEDS: LIDOCAINE 5% 1 PATCH TD SCH (08:12)
[2021-03-23] MEDS: MAGNESIUM OXIDE 400 MG TAB PO SCH (08:12)
[2021-03-23] MEDS: VENLAFAXINE HCL XR 150 MG CAPXR PO SCH (08:12)
[2021-03-23] MEDS: dilTIAZem HCL 180 MG CAPCR PO SCH (08:12)
[2021-03-23] MEDS: CETIRIZINE HCL 10 MG TABLET PO SCH (08:12)
[2021-03-23] MEDS: POLYETHYLENE (MIRALAX) 17 GM PACK PO SCH (08:12)
[2021-03-23] MEDS: INSULIN ASPART PER UNIT SC SCH ×4 (08:20→22:12)
[2021-03-23] MEDS: INSULIN GLARGINE SOLOSTAR 100 UNITS/ML 3 ML PEN SC SCH ×2 (08:21→22:11)
[2021-03-23] MEDS: DOCUSATE SODIUM 100 MG CAP PO SCH (22:11)
[2021-03-23] MEDS: ATORVASTATIN 20 MG TAB PO SCH (22:11)
[2021-03-24] MEDS: DICLOFENAC SOD 1% GEL 100 GM TUBE EXT SCH ×3 (06:36→21:38)
[2021-03-24] MEDS: POLYETHYLENE (MIRALAX) 17 GM PACK PO SCH (08:24)
[2021-03-24] MEDS: VENLAFAXINE HCL XR 150 MG CAPXR PO SCH (08:42)
[2021-03-24] MEDS: levETIRAcetam 500 MG TAB PO SCH ×2 (08:42→21:36)
[2021-03-24] MEDS: CYANOCOBALAMIN (B-12) 500 MCG TABLET PO SCH (08:42)
[2021-03-24] MEDS: CHOLECALCIFEROL 1,000 UNITS 25 MCG TAB PO SCH (08:42)
[2021-03-24] MEDS: OXYBUTYNIN CHLORIDE 5 MG TAB PO SCH ×2 (08:43→21:38)
[2021-03-24] MEDS: METOPROLOL SUCC 25MG EXT REL TAB PO SCH (08:44)
[2021-03-24] MEDS: MAGNESIUM OXIDE 400 MG TAB PO SCH (08:44)
[2021-03-24] MEDS: CETIRIZINE HCL 10 MG TABLET PO SCH (08:44)
[2021-03-24] MEDS: FAMOTIDINE 40 MG TABLET PO SCH (08:44)
[2021-03-24] MEDS: NYSTATIN CR 15 GM TUBE EXT SCH ×2 (08:45→21:22)
[2021-03-24] MEDS: dilTIAZem HCL 180 MG CAPCR PO SCH (08:45)
[2021-03-24] MEDS: LIDOCAINE 5% 1 PATCH TD SCH (08:45)
[2021-03-24] MEDS: ENOXAPARIN INJ 40 MG/0.4 ML SYR SQ SCH (08:46)
[2021-03-24] MEDS: INSULIN GLARGINE SOLOSTAR 100 UNITS/ML 3 ML PEN SC SCH ×2 (08:46→21:22)
[2021-03-24] MEDS: PREGABALIN 150 MG CAP PO SCH ×2 (08:56→21:37)
[2021-03-24] MEDS: INSULIN ASPART PER UNIT SC SCH ×4 (08:56→21:21)
--- NOTE | 2021-03-24 10:56 | Hospitalist Progress Note ---
Date of Service March 24, 2021 Assessment & Plan (1) Ambulatory dysfunction: Plan: 75 yo F Hx DM2, cerebral aneurysm s/p repair, HTN, dementia, seizures admitted for deconditioning and fall with left knee injury. (1) Fall, ambulatory dysfunction, left MCL injury: - Fall occurred in the middle of the night when aids were not in-house. - Suspect fall due to deconditioning and minimal ambulation at home as cause of fall. - CT Head without evidence of stroke or bleeding. - CT Left knee: bony fragments consistent with MCL injury; hinged knee brace placed 03/20; will need outpatient orthopedic f/u. - Cont. PT/OT; awaiting SNF placement - Tylenol and lidocaine patches PRN for knee pain (2) DM2: - Basal/bolus insulin (3) HLD -continue atorvastatin (4) Neuropathy -continue pregabalin, venlafaxine (5) Hypertension: - continue home metoprolol and diltiazem. (6) Seizure disorder: - continue home Keppra 500 mg BID (7) GERD: - Continue famotidine. - Holding PPI given hypomagnesemia on admission. Code Status: Conditional Code, DNI, no defibrillation FEN: DM2 diet DVT prophylaxis: Lovenox daily Dispo: Med/Surg (2) T2DM (type 2 diabetes mellitus): (3) Hypertension: (4) Seizure: (5) Knee pain: Admission and Anticipated Discharge Date Admission Date: March 17, 2021 Supervising Physician Co-Signing Physician Notes I personally examined the patient and verified all coreas points of history and exam, discussed case, and agree with decision making with Dr Solo feeling better getting around better less knee pain moving better still awaiting placement vitals noted nad heent nc at mmm breathing unlabored no accessory muscles good effort skin no rashes no pallor or icterus neuro no focal deficits knee injury/waekness - brace, PT/OT, awaiting placement otherwise as above Subjective Seen at bedside. No overnight events. No acute complaints. Patient eager to leave hospital for SNF. Review of Systems Review of Systems: Constitutional: denies fevers, fatigue CV: denies chest pain Resp: denies shortness of breath GI: denies abdominal pain, nausea, vomiting Physical Exam Constitutional: WD/WN, vitals as above + morbidly obese, cooperative and comfortable Respiratory: normal respiratory effort, lungs clear to auscultation Cardiovascular: Rate/Rhythm: regular rate and regular rhythm Heart Sounds: + murmur (systolic) Gastrointestinal (Abdomen): normal bowel sounds, soft, nontender, no hepatosplenomegaly Musculoskeletal: Extremities: + lower leg abnormality (leg brace s/p injury) Left Results & Data Results & Data ([facility]) Vital Signs (Past 12 Hours) Vital Signs Temp Pulse Resp BP Pulse Ox 03/24/21 08:18 36.3 C L 58 L 16 176/92 H 93 03/23/21 22:59 36.4 C L 71 18 147/66 H 91 Resident Activity Tracking Resident Involvement: Resident Care Provided Care Provided: Adult Hospital Medicine
[2021-03-24] MEDS: ATORVASTATIN 20 MG TAB PO SCH (21:36)
[2021-03-24] MEDS: DOCUSATE SODIUM 100 MG CAP PO SCH (21:36)
[2021-03-25] MEDS: DICLOFENAC SOD 1% GEL 100 GM TUBE EXT SCH ×3 (06:16→20:52)
[2021-03-25] MEDS: POLYETHYLENE (MIRALAX) 17 GM PACK PO SCH (08:14)
[2021-03-25] MEDS: CYANOCOBALAMIN (B-12) 500 MCG TABLET PO SCH (08:16)
[2021-03-25] MEDS: CHOLECALCIFEROL 1,000 UNITS 25 MCG TAB PO SCH (08:16)
[2021-03-25] MEDS: CETIRIZINE HCL 10 MG TABLET PO SCH (08:16)
[2021-03-25] MEDS: ENOXAPARIN INJ 40 MG/0.4 ML SYR SQ SCH (08:17)
[2021-03-25] MEDS: dilTIAZem HCL 180 MG CAPCR PO SCH (08:17)
[2021-03-25] MEDS: FAMOTIDINE 40 MG TABLET PO SCH (08:18)
[2021-03-25] MEDS: INSULIN GLARGINE SOLOSTAR 100 UNITS/ML 3 ML PEN SC SCH ×2 (08:18→20:48)
[2021-03-25] MEDS: levETIRAcetam 500 MG TAB PO SCH ×2 (08:19→20:49)
[2021-03-25] MEDS: LIDOCAINE 5% 1 PATCH TD SCH (08:19)
[2021-03-25] MEDS: METOPROLOL SUCC 25MG EXT REL TAB PO SCH (08:20)
[2021-03-25] MEDS: OXYBUTYNIN CHLORIDE 5 MG TAB PO SCH ×2 (08:20→20:49)
[2021-03-25] MEDS: NYSTATIN CR 15 GM TUBE EXT SCH ×2 (08:20→20:49)
[2021-03-25] MEDS: MAGNESIUM OXIDE 400 MG TAB PO SCH (08:20)
[2021-03-25] MEDS: VENLAFAXINE HCL XR 150 MG CAPXR PO SCH (08:21)
[2021-03-25] MEDS: PREGABALIN 150 MG CAP PO SCH ×2 (08:23→20:49)
[2021-03-25] MEDS: INSULIN ASPART PER UNIT SC SCH ×4 (08:28→20:48)
--- NOTE | 2021-03-25 12:39 | Hospitalist Progress Note ---
Date of Service March 25, 2021 Assessment & Plan (1) Ambulatory dysfunction: Plan: 75 yo F Hx DM2, cerebral aneurysm s/p repair, HTN, dementia, seizures admitted for deconditioning and fall with left knee injury. (1) Fall, ambulatory dysfunction, left MCL injury: - Fall occurred in the middle of the night when aids were not in-house. - Suspect fall due to deconditioning and minimal ambulation at home as cause of fall. - CT Head without evidence of stroke or bleeding. - CT Left knee: bony fragments consistent with MCL injury; hinged knee brace placed 03/20; will need outpatient orthopedic f/u. - Tylenol and lidocaine patches PRN for knee pain - Cont. PT/OT; SNF placement 03/26/21 pending negative COVID test (2) DM2: - Basal/bolus insulin (3) HLD -continue atorvastatin (4) Neuropathy -continue pregabalin, venlafaxine (5) Hypertension: - continue home metoprolol and diltiazem. (6) Seizure disorder: - continue home Keppra 500 mg BID (7) GERD: - Continue famotidine. - Holding PPI given hypomagnesemia on admission. Code Status: Conditional Code, DNI, no defibrillation FEN: DM2 diet DVT prophylaxis: Lovenox daily Dispo: Med/Surg (2) T2DM (type 2 diabetes mellitus): (3) Hypertension: (4) Seizure: (5) Knee pain: Admission and Anticipated Discharge Date Admission Date: March 17, 2021 Supervising Physician Co-Signing Physician Notes I personally examined the patient and verified all coreas points of history and exam, discussed case, and agree with decision making with Dr Solo feeling better getting around better not much knee pain moving better still awaiting placement sounds like it should be tomorrow vitals noted nad heent nc at mmm breathing unlabored no accessory muscles good effort skin no rashes no pallor or icterus neuro no focal deficits. walking w walker, slightly shuffling but overall steady gait knee injury/waekness - brace, PT/OT, awaiting placement - hopefully tomorrow otherwise as above Subjective Seen at bedside, laying in bed comfortably. No overnight events. No acute complaints. Less knee pain today. Has been working with PT which has been helping. Review of Systems Review of Systems: Constitutional: denies fevers, fatigue CV: denies chest pain Resp: denies shortness of breath GI: denies abdominal pain, nausea, vomiting Physical Exam Constitutional: WD/WN, vitals as above + morbidly obese, cooperative and comfortable Respiratory: normal respiratory effort, lungs clear to auscultation Cardiovascular: Rate/Rhythm: regular rate and regular rhythm Heart Sounds: + murmur (systolic) Gastrointestinal (Abdomen): normal bowel sounds, soft, nontender, no hepatosplenomegaly Musculoskeletal: Extremities: + lower leg abnormality (leg brace s/p MCL injury) Results & Data Results & Data ([facility]) Vital Signs (Past 12 Hours) Vital Signs Temp Pulse Resp BP Pulse Ox 03/25/21 08:01 36.6 C 62 18 131/82 91 Resident Activity Tracking Resident Involvement: Resident Care Provided Care Provided: Adult Hospital Medicine
--- NOTE | 2021-03-25 17:14 | Billing Data ---
Date of Service March 25, 2021 Coding Level of Care Code 60763 Subseq Hosp Care Lvl 1
[2021-03-25] MEDS: ATORVASTATIN 20 MG TAB PO SCH (20:49)
[2021-03-25] MEDS: DOCUSATE SODIUM 100 MG CAP PO SCH (20:49)
[2021-03-26] MEDS: DICLOFENAC SOD 1% GEL 100 GM TUBE EXT SCH (05:42)
--- NOTE | 2021-03-26 08:07 | Discharge Summary ---
Date of Service March 26, 2021 Admission HPI Per Admitting Provider 75 yo F Hx DM2, cerebral aneurysm s/p repair, HTN, dementia, seizures presented to the ER for weakness and left knee pain following a fall under uncertain circumstances earlier today. She reports not feeling unwell over the last several weeks, and denies SOB, chest pain, diarrhea, nausea, fevers. She lives alone, and has aids that come into the house from 9-5 every day. 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 She states that falls like this have happened to her in the past. She refused transport to ER at time of EMS arrival. However, her pain has worsened throughout the day, and has been unable to ambulate as a result. She wears 2 L of oxygen via nasal cannula at all times at home. In the ER patient noted to have Mg 1.5, WBC count 11.16, Hgb stable at 10.8. had left knee imaging that showed some small bony fragments and moderate sized joint effusion consistent with MCL injury. Hospitalist service was consulted for further evaluation and fall and for dispo planning/evaluation by PT and OT. Principal Diagnosis Fall, Ambulatory Dysfunction Discharge Exam Constitutional WD/WN, vitals as above + morbidly obese, cooperative and comfortable Respiratory normal respiratory effort, lungs clear to auscultation Cardiovascular Rate/Rhythm: regular rate and regular rhythm Heart Sounds: + murmur (systolic) Gastrointestinal (Abdomen) normal bowel sounds, soft, nontender, no hepatosplenomegaly Musculoskeletal Extremities: + lower leg abnormality (usually wears leg brace s/p MCL injury) Discharge Data Allergies Allergy/AdvReac Type Severity Reaction Status Date / Time fentanyl Allergy Intermediate HIGH BLOOD Verified 03/14/21 17:07 PRESSURE, SKIN FLUSHED Cephalosporins Allergy Mild RASH Verified 03/14/21 17:07 Penicillins Allergy Mild RASH Verified 03/14/21 17:07 Sulfa (Sulfonamide Allergy Mild CAN'T Verified 03/14/21 17:07 Antibiotics) REMEMBER aspartame Allergy Unknown Unknown Verified 03/14/21 17:07 bee venom protein (honey bee) Allergy Unknown CAN'T Verified 03/14/21 17:07 REMEMBER cephalexin Allergy Unknown Rash Verified 03/14/21 17:07 Iodinated Contrast Media Allergy Unknown PASS OUT, Verified 03/14/21 17:07 VOMITING ketorolac Allergy Unknown Unknown Verified 03/14/21 17:07 meperidine Allergy Unknown CAN'T Verified 03/14/21 17:07 REMEMBER stevioside [From Stevia] Allergy Unknown Unknown Verified 03/14/21 17:07 sucralose Allergy Unknown Unknown Verified 03/14/21 17:07 morphine AdvReac Intermediate Nausea Verified 03/14/21 17:07 codeine AdvReac Mild ALTERED Verified 03/14/21 17:07 MENTAL STATUS Consultations 03/14/21 20:25 ED Decision to Admit Stat Ordered Studies Laboratory Results WBC 6.84 K/uL (4.8-10.8) 03/20/21 06:47 RBC 4.76 M/uL (4.2-5.4) 03/20/21 06:47 Hgb 11.5 g/dL (12.0-16.0) L 03/20/21 06:47 Hct 37.9 % (37-47) 03/20/21 06:47 MCV 79.6 fL (80-100) L 03/20/21 06:47 MCH 24.2 pg (25-34) L 03/20/21 06:47 MCHC 30.3 g/dL (32-36) L 03/20/21 06:47 RDW Std Deviation 52.5 fL (36.4-46.3) H 03/20/21 06:47 RDW Coeff of Nic 18.1 % (11.5-14.5) H 03/20/21 06:47 Plt Count 459 K/uL (130-400) H 03/20/21 06:47 MPV 9.6 fL (7.4-10.4) 03/20/21 06:47 Immature Gran % (Auto) 0.1 % 03/18/21 05:44 Neut % (Auto) 48.8 % 03/18/21 05:44 Lymph % (Auto) 32.9 % 03/18/21 05:44 Mobile % (Auto) 11.5 % 03/18/21 05:44 Eos % (Auto) 5.7 % 03/18/21 05:44 Baso % (Auto) 1.0 % 03/18/21 05:44 Neut # (Auto) 3.39 K/uL (1.4-6.5) 03/18/21 05:44 Lymph # (Auto) 2.29 K/uL (1.2-3.4) 03/18/21 05:44 Mobile # (Auto) 0.80 K/uL (0.11-0.59) H 03/18/21 05:44 Eos # (Auto) 0.40 K/uL (0-0.5) 03/18/21 05:44 Baso # (Auto) 0.07 K/uL (0-0.2) 03/18/21 05:44 Immature Gran # (Auto) 0.01 K/uL (0.00-0.02) 03/18/21 05:44 Sodium 138 mmol/L (136-145) 03/22/21 07:50 Potassium 4.0 mmol/L (3.5-5.1) 03/22/21 07:50 Chloride 104 mmol/L (98-107) 03/22/21 07:50 Carbon Dioxide 27 mmol/L (21-32) 03/22/21 07:50 Anion Gap 7 (3-11) 03/22/21 07:50 BUN 13 mg/dl (6-23) 03/22/21 07:50 Creatinine 0.63 mg/dl (0.6-1.2) 03/22/21 07:50 Est Cr Clr Drug Dosing 90.7 ml/min 03/22/21 07:50 Est GFR ( Amer) 102.4 ml/min 03/22/21 07:50 Est GFR (Non-Af Amer) 88.4 ml/min 03/22/21 07:50 BUN/Creatinine Ratio 20.6 (10-20) H 03/22/21 07:50 Glucose 171 mg/dl (70-99(Fasting)) H 03/22/21 07:50 POC Glucose 199 mg/dl (70-99) H 03/25/21 20:30 Calcium 8.9 mg/dl (8.5-10.1) 03/22/21 07:50 Magnesium 1.7 mg/dl (1.7-2.4) 03/17/21 07:31 Total Bilirubin 0.3 mg/dl (0.2-1.0) 03/14/21 16:43 AST 12 U/L (13-39) L 03/14/21 16:43 ALT 9 U/L (7-52) 03/14/21 16:43 Alkaline Phosphatase 98 U/L (34-104) 03/14/21 16:43 Total Creatine Kinase 24 U/L (26-192) L 03/14/21 16:43 Total Protein 6.4 gm/dl (6.0-8.3) 03/14/21 16:43 Albumin 3.2 gm/dl (3.4-5.0) L 03/14/21 16:43 Globulin 3.2 gm/dl (2.5-4.0) 03/14/21 16:43 Albumin/Globulin Ratio 1.0 (0.9-2) 03/14/21 16:43 Urine Color Yellow 03/16/21 06:30 Urine Appearance Clear (Clear) 03/16/21 06:30 Urine pH 6.5 (4.5-7.5) 03/16/21 06:30 Ur Specific Ragan 1.010 (1.000-1.030) 03/16/21 06:30 Urine Protein 1+ (Negative) H 03/16/21 06:30 Urine Glucose (UA) Negative (Negative) 03/16/21 06:30 Urine Ketones Negative (Negative) 03/16/21 06:30 Urine Blood 1+ (Negative) H 03/16/21 06:30 Urine Nitrite Negative (Negative) 03/16/21 06:30 Urine Bilirubin Negative (Negative) 03/16/21 06:30 Urine Urobilinogen Negative (Negative) 03/16/21 06:30 Ur Leukocyte Esterase Trace (Negative) H 03/16/21 06:30 Urine WBC (Auto) 5-10 /hpf (0-5) H 03/16/21 06:30 Urine RBC (Auto) 0-4 /hpf (0-4) 03/16/21 06:30 U Hyaline Cast (Auto) 1-5 /lpf (0-5) 03/16/21 06:30 U Epithel Cells (Auto) >30 /lpf (0-5) H 03/16/21 06:30 Urine Bacteria (Auto) Negative (Negative) 03/16/21 06:30 Urine Yeast Budding (None Prsent) A 03/16/21 06:30 SARS-CoV-2, RNA, NAAT NEGATIVE (NEGATIVE) 03/25/21 Unknown Impressions Chest X-Ray 03/14/21 16:15 XR chest 1V portable CLINICAL HISTORY: weakness, fall COMPARISON STUDY: Chest radiograph and chest CT March 01, 2021. FINDINGS: There is no pneumothorax or pleural effusion. A hiatal hernia is noted. Cardiomegaly is noted. There is no evidence for pulmonary edema. Right basilar opacity is again noted. This is either unchanged or slightly improved since prior examination. Left lung is clear. IMPRESSION: 1. Persistent right basilar opacity, mildly improved since prior exam. Continue radiographic follow-up to ensure complete resolution is recommended. 2. Cardiomegaly without evidence for pulmonary edema. 3. Hiatal hernia. ACT 112: Negative or not required by law. Electronically signed by: Alejo No M.D. 03/14/2021 5:53 PM Femur X-Ray 03/14/21 16:15 XR femur LT 2V routine CLINICAL HISTORY: fall, left leg pain COMPARISON: CT of the left hip and left hip radiographs September 21, 2020. FINDINGS: No definite acute fracture within the left femur is noted. Alignment of the left hip and left knee appears anatomic. Left knee joint effusion is noted. There is cortical irregularity of the medial femoral condyle. In addition, there is a lucency within the patella. IMPRESSION: 1. Cortical irregularity of the left medial femoral condyle. This is probably artifactual however an acute fracture cannot be completely excluded. 2. Lucency within the patella. Again, artifact is favored however a nondisplaced fracture could appear similar. CT of the left knee could be obtained for further evaluation. 3. Moderate size left knee joint effusion. ACT 112: Negative or not required by law. Electronically signed by: Alejo No M.D. 03/14/2021 5:51 PM Knee X-Ray 03/14/21 16:15 XR knee LT 3V CLINICAL HISTORY: fall, knee pain COMPARISON: None FINDINGS: There is cortical irregularity of the left medial femoral condyle. A moderate-sized left knee joint effusion is noted without lipohemarthrosis. There is a lucency within the patella. IMPRESSION: 1. Cortical irregularity of the left medial femoral condyle. This is probably artifactual however an acute fracture cannot be completely excluded. 2. Lucency within the patella. Again, artifact is favored however a nondisplaced fracture could appear similar. CT of the left knee could be obtained for further evaluation. 3. Moderate size left knee joint effusion. ACT 112: Negative or not required by law. Electronically signed by: Alejo No M.D. 03/14/2021 5:52 PM Pelvis X-Ray 03/14/21 16:15 XR pelvis 1-2V routine CLINICAL HISTORY: Left leg pain following fall. COMPARISON: CT of the left hip and left hip radiographs September 21, 2020. FINDINGS: Sacroiliac joints and symphysis pubis are intact. There is no acute fracture within the pelvis or hips. Pelvic calcifications favor phleboliths. IMPRESSION: No acute fracture within the pelvis or hips. ACT 112: Negative or not required by law. Electronically signed by: Alejo No M.D. 03/14/2021 5:[address] 03/14/21 17:55 CT OF THE LEFT KNEE WITHOUT CONTRAST CLINICAL HISTORY: left knee injury, possible fx COMPARISON STUDY: Left knee radiographs September 21, 2020 and March 14, 2021. TECHNIQUE: Axial images of the left knee were obtained without IV contrast. Sagittal and coronal reconstructions were viewed. Automated exposure control was utilized for the study. A dose lowering technique was utilized adhering to the principles of ALARA. FINDINGS: A moderate size left knee joint effusion is noted. There is no lipohemarthrosis. A few bone fragments along the medial femoral condyle measure up to 8 mm. These suggest avulsed bone fragments. No additional fractures are identified on this examination. There is mild left knee osteophytosis. Mild medial compartment joint space narrowing of the left knee is noted. No soft tissue gas is present. There is moderate vascular calcification. IMPRESSION: 1. A few bone fragments along the medial femoral condyle which correspond to the finding on radiographs. These represent small avulsed bone fragments and may be acute. These could be seen in the setting of MCL injury. 2. Moderate-sized left knee joint effusion. ACT 112: Negative or not required by law. Electronically signed by: Alejo No M.D. 03/14/2021 7:[address] 03/14/21 22:03 CT head/brain wo con CLINICAL HISTORY: fall, may have hit head, on antiplatelet . Confusion and weakness COMPARISON STUDY: 03/01/2021 CT DOSE: 614.27 mGy.cm TECHNIQUE: Standard CT of the Brain was performed without IV contrast. A dose lowering technique was utilized adhering to the principles of ALARA. FINDINGS: Extraaxial space: There is no evidence for subdural hematoma. There are no extra-axial fluid collections. Ventricles and cisterns: The ventricles are mildly dilated bilaterally. There is no evidence for midline shift or mass effect. Parenchyma: There is no subarachnoid or intraparenchymal hemorrhage. There is no evidence for an acute infarct or cerebral edema. There is mild cerebral cortical atrophy and decreased attenuation in the periventricular white matter representing remote small vessel disease. The patient is again status post left temporoparietal craniotomy with surgical clips seen in the left temporal lobe, unchanged. There are no gross mass lesions. Osseous structures: There is no evidence for an acute fracture. The visualized paranasal sinuses are clear. The mastoid air cells are clear bilaterally. Soft tissues: There is no evidence for focal soft tissue swelling. IMPRESSION: No acute intracerebral pathology. Cerebral cortical atrophy and remote small vessel disease are again seen. Postsurgical changes are also again noted involving the left temporal parietal lobe. ACT 112: Negative or not required by law. Electronically signed by: Rishi Alfredo M.D. 03/14/2021 10:56 PM Hospital Course (1) Ambulatory dysfunction: 75 yo female PMHx DM2, cerebral aneurysm s/p repair, HTN, dementia, seizures admitted for deconditioning and fall with left knee injury. (1) Fall, ambulatory dysfunction, left MCL injury: - Fall occurred in the middle of the night when aids were not in-house. - Suspect fall due to deconditioning and minimal ambulation at home as cause of fall. - CT Head without evidence of stroke or bleeding. - CT Left knee: bony fragments consistent with MCL injury; hinged knee brace placed 03/20; consider outpatient orthopedic f/u. - Tylenol and lidocaine patches given PRN for knee pain - Cont. PT/OT; SNF placement (2) DM2: - cont. home antiglycemics (3) HLD - continue atorvastatin (4) Neuropathy - continue pregabalin, venlafaxine (5) Hypertension: - continue home metoprolol and diltiazem. (6) Seizure disorder: - continue home Keppra 500 mg BID (7) GERD: - Continue famotidine, pantoprazole (2) T2DM (type 2 diabetes mellitus): (3) Hypertension: (4) Seizure: (5) Knee pain: Total Time Total Time Spent Total Time Spent (In Minutes): <30 Discharge Plan Discharge Items Patient Disposition: Transfer Nursing Home Fac Reason For Visit: FALL, DECONDITIONING Discharge Diagnosis: Fall, Ambulatory Dysfunction Activity: Per Instructions section Non-emergency contact: Primary Care Provider Call non-emergency contact if: you have any medication questions and your symptoms worsen Follow-up/Referrals: Margarito Al [Primary Care Provider] - Diet: Carb Consistent or DM2 Addtl Attending Provider Instructions: You were admitted to the hospital for a fall secondary to deconditioning. You injured your MCL in left knee and were treated with pain control and a knee brace. You will be going to [facility] where you will be getting PT with assisted living. A discharge summary will be sent to your primary care physician to ensure continuity of care. Please bring this discharge summary with you to your next office appointment so that your provider can review it at that time. Follow-up appointments: Make a follow-up appointment with your PCP within the next week. It is very important that you follow up with them shortly after discharge from the hospital. We have requested a follow-up appointment with your primary care physician joseline cabello one week of discharge. Please call their office if you do not hear from them. Keep all your follow-up appointments as already scheduled. If you cannot make an appointment, notify your provider. Medications: Your medication list has been reviewed and reconciled upon discharge to ensure accuracy and continuity of care. An updated list of all your medications is included with your hospital discharge paperwork. Please review this list closely,and make note of any changes. Take your medications as instructed; do not skip a dose of your medicines. Make sure all of your doctors know every medicine you are taking (including [id number] medicines, vitamins,and supplements). Call your primary care provider before taking any new medicines (including [id number]-[id number] medicines, vitamins, and supplements),because some of these may interact with your current medications, or may make your symptoms worse. Tell your primary care provider if you cannot afford your medications. CONTACT YOUR PRIMARY CARE PROVIDER if you experience any of the following: Difficulty following your treatment plan, or difficulty taking medications. CALL 911 OR GO TO THE EMERGENCY DEPARTMENT if you experience any of the following: Sudden, severe abdominal pain or nausea/vomiting Severe chest pain, or chest pain that radiates (moves)to your jaw or arm Sudden, severe shortness of breath or difficulty breathing Thank you for allowing us to participate in your care. Pending Studies at Discharge: No Stand-Alone Forms: My [facility] Skilled Items Patient informed of condition?: Yes DNR: No (conditional code; patient is DNI + only NO defibrillation) Discharge Level of Care: Skilled Communicable Disease: No Discharge Prognosis: Improving Lines: None Urinary Catheter: No Medications and DC Order Prescriptions: Continued pregabalin 150 mg capsule 150 mg PO BID 30 Days Qty: 60 RF: 2 metformin 500 mg tablet 1,000 mg PO BIDM 90 Days Qty: 360 RF: 3 atorvastatin 20 mg tablet 20 mg PO HS Qty: 30 RF: 0 cetirizine 10 mg tablet 10 mg PO DAILY RF: 0 cyanocobalamin (vitamin B-12) 1,000 mcg capsule 1,000 mcg PO DAILY Qty: 30 RF: 0 diltiazem HCl 180 mg capsule,extended release 24hr 180 mg PO QAM RF: 0 docusate sodium 100 mg capsule 200 mg PO HS RF: 0 magnesium oxide 400 mg (241.3 mg magnesium) tablet 400 mg PO QAM RF: 0 venlafaxine 150 mg capsule,extended release 24hr 150 mg PO QAM RF: 0 pantoprazole 40 mg tablet,delayed release (DR/EC) 40 mg PO QAM RF: 0 nitroglycerin 0.4 mg tablet, sublingual 0.4 mg SL DIRECTED PRN (Reason: Chest Pain) RF: 0 Lantus Solostar U-100 Insulin 100 unit/mL (3 mL) insulin pen 60 unit subcut HS RF: 0 polyethylene glycol 3350 [Miralax] 17 gram Powder In Packet 17 g PO QAM RF: 0 acetaminophen [Tylenol Extra Strength] 500 mg Tablet 500 mg PO Q6H PRN (Reason: Pain) RF: 0 aspirin [Aspirin Low Dose] 81 mg Tablet,Delayed Release (Dr/Ec) 81 mg PO QAM RF: 0 cholecalciferol (vitamin D3) [Vitamin D3] 50 mcg (2,000 unit) Capsule 2,000 unit PO QAM RF: 0 oxybutynin chloride 5 mg tablet 5 mg PO BID RF: 0 levetiracetam 500 mg tablet 500 mg PO BID RF: 0 metoprolol succinate 25 mg tablet extended release 24 hr 25 mg PO DAILY RF: 0 insulin aspart U-100 [Novolog Flexpen U-100 Insulin] 100 unit/mL (3 mL) insulin pen See Rx Instructions .ROUTE .COMPLEX Qty: 15 RF: 0 Discharge Orders: Discharge Order (Routine); Ordered 03/26/21 Ordered By: Choco Solo Admission Data Admit Date/Time: 03/17/21 13:45 Attending Provider: Slick Castorena Admit Provider: Violet Miranda Primary Care Provider: Margarito Al Other Providers: Kevin Maria ; [facility] ; [facility] Other Interventions: Discharge Summary Assessment (RN) Last Done: 03/26/21 11:26 Supervising Physician Co-Signing Physician Notes I personally examined the patient and verified all coreas points of history and ex am, discussed case, and agree with decision making with Dr Solo getting around reasonably well. for SNF today vitals noted nad heent nc at mmm breathing unlabored no accessory muscles good effort skin no rashes no pallor or icterus neuro no focal deficits. knee injury/weakness - brace, PT/OT, for placement today otherwise as above Resident Activity Tracking Resident Involvement: Resident Care Provided Care Provided: Adult Hospital Medicine
[2021-03-26] MEDS: POLYETHYLENE (MIRALAX) 17 GM PACK PO SCH (08:21)
[2021-03-26] MEDS: NYSTATIN CR 15 GM TUBE EXT SCH (08:22)
[2021-03-26] MEDS: ENOXAPARIN INJ 40 MG/0.4 ML SYR SQ SCH (08:22)
[2021-03-26] MEDS: LIDOCAINE 5% 1 PATCH TD SCH (08:22)
[2021-03-26] MEDS: METOPROLOL SUCC 25MG EXT REL TAB PO SCH (08:23)
[2021-03-26] MEDS: dilTIAZem HCL 180 MG CAPCR PO SCH (08:23)
[2021-03-26] MEDS: levETIRAcetam 500 MG TAB PO SCH (08:23)
[2021-03-26] MEDS: MAGNESIUM OXIDE 400 MG TAB PO SCH (08:23)
[2021-03-26] MEDS: OXYBUTYNIN CHLORIDE 5 MG TAB PO SCH (08:23)
[2021-03-26] MEDS: CYANOCOBALAMIN (B-12) 500 MCG TABLET PO SCH (08:24)
[2021-03-26] MEDS: FAMOTIDINE 40 MG TABLET PO SCH (08:24)
[2021-03-26] MEDS: VENLAFAXINE HCL XR 150 MG CAPXR PO SCH (08:24)
[2021-03-26] MEDS: CETIRIZINE HCL 10 MG TABLET PO SCH (08:24)
[2021-03-26] MEDS: CHOLECALCIFEROL 1,000 UNITS 25 MCG TAB PO SCH (08:24)
[2021-03-26] MEDS: INSULIN ASPART PER UNIT SC SCH ×2 (08:30→12:14)
[2021-03-26] MEDS: PREGABALIN 150 MG CAP PO SCH (08:31)
[2021-03-26] MEDS: INSULIN GLARGINE SOLOSTAR 100 UNITS/ML 3 ML PEN SC SCH (08:31)
== END 2021-03-26 13:40 | DRG 563 ==
LOC: 3W 15:47 → ED 15:47 → SUATTDRO 21:02 → 3W 21:34 → SUATTDRO 03-17 13:45

== ENCOUNTER 2021-07-12 12:07 | Inpatient (IN) ==
[2021-07-12] MEDS ORDERED: ONDANSETRON INJ 2 MG/ML 2 ML VIAL IV STA (12:36)
[2021-07-12] MEDS ORDERED: SODIUM CHLORIDE 0.9% 500 ML IV STA (12:36)
--- NOTE | 2021-07-12 12:54 | Emergency Department Note ---
Impression & Plan Nausea, Weakness, Hypoxia, Colitis ED Provider Note Provider: Toni Hylton MD DATE OF SERVICE: 07/12/2021 CHIEF COMPLAINT: Abdominal pain, nausea HISTORY OF PRESENT ILLNESS: Patient is a 75-year-old female history of type 2 diabetes, dementia, seizure, neuropathy, and hypertension presenting here today ambulance from home. Evidently overnight developed some abdominal pain and nausea. States has not had anything to eat today. Reports diffuse abdominal pain. Denies vomiting or diarrhea. Denies chest pain but reports she feels a little bit short of breath. EMS noted patient was hypoxic on room air for them. She denies a history of smoking. Denies falls. Denies headache or URI symptoms. Patient reports a little bit of swelling lower extremities. She does report that she felt warm last night but denies a sick contact. Currently lives alone but has a helper during the day. Family currently away in [place]. REVIEW OF SYSTEMS: A total of 10 review of systems was obtained and negative except as stated above in the HPI. PAST MEDICAL HISTORY: As noted above MEDICATIONS: Reviewed home medication SOCIAL HISTORY: States she lives alone, denies smoking PHYSICAL EXAM: GENERAL: alert and oriented in no acute distress on stretcher Head: normocephalic and atraumatic EYES: No injection, discharge or icterus. PERRL, EOMI. NECK: Trachea midline. Supple. ENT: Mucous membranes pink and moist. LUNGS: Airway patent. No retractions. Breath sounds clear HEART: Regular rate and rhythm. No chest wall tenderness ABDOMEN: Soft to mild diffuse abdominal tenderness. SKIN: Acyanotic, warm, dry, without rashes EXTREMITIES: Without swelling, tenderness or deformity NEUROLOGICAL: No focal deficits. No aphasia. No facial droop or slurred speech. EK bpm normal sinus rhythm. Left axis left bundle branch block. QTc 533. No PVC or PAC. CONTINUOUS CARDIAC MONITORING: was ordered and showed a heart rate of 80s-90s bpm in normal sinus rhythm Patient's laboratory studies and imaging reviewed. Differential includes Appendicitis, ovarian cyst, ovarian torsion, ectopic , TOA, PID, infections, diverticulitis, UTI, obstruction, mesenteric ischemia, aortic pathology, inflammatory bowel disease, renal colic, PUD, pancreatitis, biliary pathology, hernia, volvulus, constipation, pneumonia as well as other pathologies. IMPRESSION/MEDICAL DECISION MAKIN-year-old female presenting developing overnight some abdominal pain diffusely with nausea. Noted be hypoxic on room air which is new for her and she denies a history of smoking. IV contrast allergy noted. CT of the head and abdomen obtained given some lethargy reported as well. Chest x-ray obtained. COVID test sent as well as influenza testing. EKG obtained lower suspicion for cardiac etiology. Trace pedal edema bilaterally but no convincing evidence for DVT. Negative COVID, flu, and RSV. No significant anemia or leukocytosis. HS troponin 14.8. Denies chest pain again. Heart function within normal limits. CT of the head without acute finding per radiology. CT of the abdomen per radiology questions possible nonspecific transverse colon colitis with an indeterminate kidney lesion. Advised the patient of this kidney lesion. Patient still with some new oxygen demand. No evidence of significant pneumonia noted on the abdominal CT bottom of the lung cuts. Not having concerning febrile symptoms again negative COVID and flu. Trial here off oxygen was unfortunately unsuccessful with desats into the mid to low 80s. She does report that she uses a little bit of 2 L of oxygen at night at sleep only. Abdomen still minimally upset but denies significant pain. Discussed with her the findings. Lower suspicion for PE as she is not significantly tachycardic. Given her persistent hypoxia discussed with the hospitalist further observation here. DIAGNOSIS: Nausea, colitis, hypoxia DISPOSITION: Hospitalist will evaluate Patient was agreeable with this plan. Past Med/Surg History Medical History HANNAH (acute kidney injury) Anesthesia in both legs Diabetic peripheral neuropathy Dyslipidemia Epilepsy Essential tremor Hypertension Hypoxic Loss of memory Obesity Peripheral neuropathy Sensory ataxia T2DM (type 2 diabetes mellitus) Tremor Vitamin B12 deficiency Vitamin D deficiency Surgical History Hx of cerebral aneurysm repair S/P adenoidectomy S/P cholecystectomy S/P hysterectomy S/P tonsillectomy S/P umbilical hernia repair, follow-up exam Status post tubal ligation Family History Mother Cancer Father Coronary heart disease Social History Smoking Status: Never smoker Hx Alcohol Use: Yes Alcohol type: wine Hx Substance Use: No Preferred Language: French Communication Ability: Effective 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 Beliefs That Will Affect Care: None marital status: / Current Living Situation: Alone Feels Safe at Home: Yes Assistive Devices: Brace/Splint/Immobilizer, Glasses and Walker Allergies Allergies Allergy/AdvReac Type Severity Reaction Status Date / Time fentanyl Allergy Intermediate HIGH BLOOD Verified 06/11/21 12:54 PRESSURE, SKIN FLUSHED Cephalosporins Allergy Mild RASH Verified 06/11/21 12:54 Penicillins Allergy Mild RASH Verified 06/11/21 12:54 Sulfa (Sulfonamide Allergy Mild CAN'T Verified 06/11/21 12:54 Antibiotics) REMEMBER aspartame Allergy Unknown Unknown Verified 06/11/21 12:54 bee venom protein (honey bee) Allergy Unknown CAN'T Verified 06/11/21 12:54 REMEMBER cephalexin Allergy Unknown Rash Verified 06/11/21 12:54 Iodinated Contrast Media Allergy Unknown PASS OUT, Verified 06/11/21 12:54 VOMITING ketorolac Allergy Unknown Unknown Verified 06/11/21 12:54 meperidine Allergy Unknown CAN'T Verified 06/11/21 12:54 REMEMBER stevioside [From Stevia] Allergy Unknown Unknown Verified 06/11/21 12:54 sucralose Allergy Unknown Unknown Verified 06/11/21 12:54 morphine AdvReac Intermediate Nausea Verified 06/11/21 12:54 codeine AdvReac Mild ALTERED Verified 06/11/21 12:54 MENTAL STATUS Home Meds Home Medications Medication Instructions Recorded Confirmed atorvastatin 20 mg tablet 20 mg PO HS #30 tab 02/09/19 07/12/21 cetirizine 10 mg tablet 10 mg PO DAILY tab 02/09/19 07/12/21 cyanocobalamin (vitamin B-12) 1,000 mcg PO DAILY #30 cap 02/09/19 07/12/21 1,000 mcg capsule diltiazem HCl 180 mg 180 mg PO QAM cap 02/09/19 07/12/21 capsule,extended release 24 hr docusate sodium 100 mg capsule 200 mg PO HS cap 02/09/19 07/12/21 magnesium oxide 400 mg (241.3 mg 400 mg PO QAM tab 02/09/19 07/12/21 magnesium) tablet nitroglycerin 0.4 mg sublingual 0.4 mg SL DIRECTED PRN tab 02/09/19 07/12/21 tablet pantoprazole 40 mg tablet,delayed 40 mg PO QAM tab 02/09/19 07/12/21 release venlafaxine 150 mg 150 mg PO QAM cap 02/09/19 07/12/21 capsule,extended release 24 hr acetaminophen 500 mg tablet 500 mg PO Q6H PRN 03/01/19 07/12/21 (Tylenol Extra Strength) polyethylene glycol 3350 17 gram 17 g PO QAM 03/01/19 07/12/21 oral powder packet (Miralax) aspirin 81 mg tablet,delayed 81 mg PO QAM 11/14/19 07/12/21 release (Aspirin Low Dose) cholecalciferol (vitamin D3) 50 2,000 unit PO QAM 11/14/19 07/12/21 mcg (2,000 unit) capsule (Vitamin D3) oxybutynin chloride 5 mg tablet 5 mg PO BID 11/14/19 07/12/21 levetiracetam 500 mg tablet 500 mg PO BID 02/24/20 07/12/21 metoprolol succinate 25 mg 25 mg PO DAILY 03/01/21 07/12/21 tablet,extended release 24 hr insulin aspart U-100 100 unit/mL See Rx Instructions .ROUTE 06/11/21 07/12/21 (3 mL) subcutaneous pen (Novolog .COMPLEX ml Flexpen U-100 Insulin aspart) insulin glargine 100 unit/mL (3 50 unit SUBCUT HS ml 06/11/21 07/12/21 mL) subcutaneous pen (Lantus Solostar U-100 Insulin) Previous Rx's Medication Instructions Recorded pregabalin 150 mg capsule 150 mg PO BID 30 Days #60 cap 12/04/19 metformin 500 mg tablet 1,000 mg PO BIDM 90 Days #360 tab 11/08/20 Results & Data (ED) Vital Signs Vital Signs - 24 hr 07/12/21 12:29 07/12/21 12:32 07/12/21 13:17 Temperature 37.2 C Temperature Source Oral Pulse Rate 92 H Pulse Rhythm Regular Pulse Strength Normal Respiratory Rate 20 20 20 Respiratory Effort / Characteristics Non-Labored Non-Labored Respiratory Depth Normal Normal Respiratory Pattern Regular Blood Pressure 174/96 H Blood Pressure Mean 122 Blood Pressure Position Lying Pulse Oximetry 87 L 93 95 Oxygen Delivery Method Room Air Nasal Cannula Nasal Cannula Oxygen Flow Rate 2 2 Sepsis Recent Fever Within 48 Hours No Sepsis New/Unexplained Change in Mental Status No Sepsis Action Taken by Nursing No Action Required Laboratory Data Result diagrams: 07/12/21 13:52 07/12/21 17:00 Lab Results 07/12/21 07/12/21 07/12/21 Range/Units 12:54 13:52 13:52 WBC 9.34 (4.8-10.8) K/uL RBC 5.21 (4.2-5.4) M/uL Hgb 12.0 (12.0-16.0) g/dL Hct 38.1 (37-47) % MCV 73.1 L (80-100) fL MCH 23.0 L (25-34) pg MCHC 31.5 L (32-36) g/dL RDW Std Deviation 48.4 H (36.4-46.3) fL RDW Coeff of Nic 18.2 H (11.5-14.5) % Plt Count 441 H (130-400) K/uL MPV 10.2 (7.4-10.4) fL Immature Gran % (Auto) 0.2 % Neut % (Auto) 66.0 % Lymph % (Auto) 23.4 % [place] % (Auto) 8.4 % Eos % (Auto) 1.3 % Baso % (Auto) 0.7 % Neut # (Auto) 6.16 (1.4-6.5) K/uL Lymph # (Auto) 2.19 (1.2-3.4) K/uL [place] # (Auto) 0.78 H (0.11-0.59) K/uL Eos # (Auto) 0.12 (0-0.5) K/uL Baso # (Auto) 0.07 (0-0.2) K/uL Immature Gran # (Auto) 0.02 (0.00-0.02) K/uL Sodium 139 (136-145) mmol/L Potassium TNP Chloride 104 (98-107) mmol/L Carbon Dioxide 24 (21-32) mmol/L Anion Gap 11 (3-11) BUN 8 (6-23) mg/dl Creatinine 0.55 L (0.6-1.2) mg/dl Est Cr Clr Drug Dosing 102.1 ml/min Est GFR ( Amer) 107.1 ml/min Est GFR (Non-Af Amer) 92.4 ml/min BUN/Creatinine Ratio 14.5 (10-20) Glucose 133 H (70-99(Fasting)) mg/dl Calcium 9.4 (8.5-10.1) mg/dl Total Bilirubin 0.4 (0.2-1.0) mg/dl AST TNP ALT 12 (7-52) U/L Alkaline Phosphatase 105 H (34-104) U/L Troponin I High Sens 14.8 H (0-14) pg/ml Total Protein 7.2 (6.0-8.3) gm/dl Albumin 3.7 (3.4-5.0) gm/dl Globulin 3.5 (2.5-4.0) gm/dl Albumin/Globulin Ratio 1.1 (0.9-2) Lipase 9 L (11-82) U/L TSH (0.300-4.500) uIu/ml SARS-CoV-2 (PCR) NEGATIVE (Negative) Influenza Type A (PCR) Negative (Neg) Influenza Type B (PCR) Negative (Neg) RSV (RT-PCR) Negative (Neg) 07/12/21 07/12/21 Range/Units 13:52 17:00 WBC (4.8-10.8) K/uL RBC (4.2-5.4) M/uL Hgb (12.0-16.0) g/dL Hct (37-47) % MCV (80-100) fL MCH (25-34) pg MCHC (32-36) g/dL RDW Std Deviation (36.4-46.3) fL RDW Coeff of Nic (11.5-14.5) % Plt Count (130-400) K/uL MPV (7.4-10.4) fL Immature Gran % (Auto) % Neut % (Auto) % Lymph % (Auto) % [place] % (Auto) % Eos % (Auto) % Baso % (Auto) % Neut # (Auto) (1.4-6.5) K/uL Lymph # (Auto) (1.2-3.4) K/uL [place] # (Auto) (0.11-0.59) K/uL Eos # (Auto) (0-0.5) K/uL Baso # (Auto) (0-0.2) K/uL Immature Gran # (Auto) (0.00-0.02) K/uL Sodium (136-145) mmol/L Potassium 3.7 Chloride (98-107) mmol/L Carbon Dioxide (21-32) mmol/L Anion Gap (3-11) BUN (6-23) mg/dl Creatinine (0.6-1.2) mg/dl Est Cr Clr Drug Dosing ml/min Est GFR ( Amer) ml/min Est GFR (Non-Af Amer) ml/min BUN/Creatinine Ratio (10-20) Glucose (70-99(Fasting)) mg/dl Calcium (8.5-10.1) mg/dl Total Bilirubin (0.2-1.0) mg/dl AST 15 ALT (7-52) U/L Alkaline Phosphatase (34-104) U/L Troponin I High Sens (0-14) pg/ml Total Protein (6.0-8.3) gm/dl Albumin (3.4-5.0) gm/dl Globulin (2.5-4.0) gm/dl Albumin/Globulin Ratio (0.9-2) Lipase (11-82) U/L TSH 2.066 (0.300-4.500) uIu/ml SARS-CoV-2 (PCR) (Negative) Influenza Type A (PCR) (Neg) Influenza Type B (PCR) (Neg) RSV (RT-PCR) (Neg) Administered Medications Discontinued Medications Sodium Chloride (Nss) 500 mls @ 999 mls/hr IV .Q31M STA Stop: 07/12/21 13:06 Last Infusion: 07/12/21 14:48 Dose: 0 mls/hr Documented by: [id number] Admin: 07/12/21 14:03 Dose: 999 mls/hr Documented by: [id number] Ondansetron HCl (Ondansetron Inj 2 Mg/Ml 2 Ml Vial) 4 mg IV NOW STA Stop: 07/12/21 12:37 Last Admin: 07/12/21 14:02 Dose: 4 mg Documented by: [id number] Imaging Data Radiologist's Impression: Abdomen/Pelvis CT 07/12/21 12:36 CT OF THE ABDOMEN AND PELVIS WITHOUT CONTRAST CLINICAL HISTORY: Abdominal pain. COMPARISON STUDY: CT of the abdomen and pelvis November 15, 2019. TECHNIQUE: Axial images of the abdomen and pelvis were obtained without IV contrast. Images were reviewed in the axial, sagittal, and coronal planes. Automated exposure control was utilized for the study. A dose lowering techni que was utilized adhering to the principles of ALARA. FINDINGS: T11 compression fracture is noted. This was shown on chest CT of March 01, 2021. Cardiomegaly is noted with extensive coronary artery calcification. A moderate sized hiatal hernia is noted with partially intrathoracic stomach. Subpleural opacities within the lower lungs favor atel ectasis. No pneumatosis, free air or portal venous gas is present. This exam is compromised by lack of contrast and body wall contacting injury. Unenhanced images of the liver, spleen, adrenal glands and pancreas are unremarkable. Mild biliary ductal dilatation is unchanged and CT of the November 15, 2019 and likely related to cholecystectomy. There is no evidence for a bowel obstruction. Colonic diverticulosis is noted without evidence for acute diverticulitis. Mild wall thickening of the transverse colon is likely due to underdistention. Appendix is not visualized. There is no lymphadenopathy. No acute lumbar spine or pelvic fracture is present. There is no hydronephrosis. No renal, ureteral or bladder calculi are present. Numerous bilateral renal lesions are suboptimally assessed on this unenhanced exam. A 1.2 cm lesion arising from the lower pole of the left kidney measures above water attenuation. IMPRESSION: 1. No bowel obstruction. 2. Mild wall thickening of the transverse colon. This is likely due to underdistention although a nonspecific colitis could appear similar. Colonic diverticulosis without evidence for acute diverticulitis. 3. No urinary calculi or hydronephrosis. 4. Numerous small bilateral renal lesions. These are suboptimally assessed on this unenhanced exam. Indeterminate 1.2 cm lesion within the lower pole of the left kidney could reflect a hyperdense cyst or small solid renal lesion. A nonemergent renal protocol MRI could be obtained. ACT 112: Negative or not required by law. Electronically signed by: Alejo No M.D. 07/12/2021 2:[address] 07/12/21 12:36 CT OF THE HEAD WITHOUT CONTRAST CLINICAL HISTORY: Nausea. COMPARISON STUDY: Head CT March 14, 2021. TECHNIQUE: Helical axial images of the head were obtained without IV contrast. Automated exposure control was utilized for the study. A dose lowering technique was utilized adhering to the principles of ALARA. FINDINGS: No acute intracranial hemorrhage, midline shift or mass effect is present. Aneurysm clips within the region of the distal left MCA are unchanged. Adjacent encephalomalacia is unchanged. Ventricular system is stable. Basal cisterns are patent. White matter hypodensity suggests small vessel disease. The appearance of the brain is unchanged. Left sided craniotomy is noted. There is no acute calvarial fracture. IMPRESSION: No acute intracranial findings. No change in appearance of the brain. ACT 112: Negative or not required by law. Electronically signed by: Alejo No M.D. 07/12/2021 2:42 PM Chest X-Ray 07/12/21 12:37 XR chest 1V portable CLINICAL HISTORY: Hypoxia. Abdominal pain. COMPARISON STUDY: Chest CT March 01, 2021. Chest radiograph March 14, 2021. FINDINGS: There is no pneumothorax or pleural effusion. Note is made of cardiomegaly without evidence for pulmonary edema. A hiatal hernia is present. There is no consolidation to suggest pneumonia. IMPRESSION: 1. No acute cardiopulmonary findings. 2. Cardiomegaly. No evidence for pulmonary edema. 3. Hiatal hernia with partially intrathoracic stomach. ACT 112: Negative or not required by law. Electronically signed by: Alejo No M.D. 07/12/2021 2:56 PM Discharge Plan Visit Data Chief Complaint: Abdominal Pain ED Provider: Toni Hylton Discharge Problem: Nausea, Weakness, Hypoxia, Colitis Patient Disposition: Being Evaluated by Hospitalist Forms Stand Alone Forms: [facility] Prescriptions Prescriptions: No Action pregabalin 150 mg capsule 150 mg PO BID 30 Days Qty: 60 RF: 2 metformin 500 mg tablet 1,000 mg PO BIDM 90 Days Qty: 360 RF: 3 atorvastatin 20 mg tablet 20 mg PO HS Qty: 30 RF: 0 cetirizine 10 mg tablet 10 mg PO DAILY RF: 0 cyanocobalamin (vitamin B-12) 1,000 mcg capsule 1,000 mcg PO DAILY Qty: 30 RF: 0 diltiazem HCl 180 mg capsule,extended release 24hr 180 mg PO QAM RF: 0 docusate sodium 100 mg capsule 200 mg PO HS RF: 0 magnesium oxide 400 mg (241.3 mg magnesium) tablet 400 mg PO QAM RF: 0 venlafaxine 150 mg capsule,extended release 24hr 150 mg PO QAM RF: 0 pantoprazole 40 mg tablet,delayed release (DR/EC) 40 mg PO QAM RF: 0 nitroglycerin 0.4 mg tablet, sublingual 0.4 mg SL DIRECTED PRN (Reason: Chest Pain) RF: 0 insulin aspart U-100 [Novolog Flexpen U-100 Insulin] 100 unit/mL (3 mL) insulin pen See Rx Instructions .ROUTE .COMPLEX RF: 0 Lantus Solostar U-100 Insulin 100 unit/mL (3 mL) insulin pen 50 unit subcut HS RF: 0 polyethylene glycol 3350 [Miralax] 17 gram Powder In Packet 17 g PO QAM RF: 0 acetaminophen [Tylenol Extra Strength] 500 mg Tablet 500 mg PO Q6H PRN (Reason: Pain) RF: 0 aspirin [Aspirin Low Dose] 81 mg Tablet,Delayed Release (Dr/Ec) 81 mg PO QAM RF: 0 cholecalciferol (vitamin D3) [Vitamin D3] 50 mcg (2,000 unit) Capsule 2,000 unit PO QAM RF: 0 oxybutynin chloride 5 mg tablet 5 mg PO BID RF: 0 levetiracetam 500 mg tablet 500 mg PO BID RF: 0 metoprolol succinate 25 mg tablet extended release 24 hr 25 mg PO DAILY RF: 0 Referrals Referrals: Margarito Al [Primary Care Provider] -
--- NOTE | 2021-07-12 13:29 | Electrocardiogram Report ---
Test Reason : Blood Pressure : / mmHG Vent. Rate : 096 BPM Atrial Rate : 096 BPM P-R Int : 000 ms QRS Dur : 140 ms QT Int : 422 ms P-R-T Axes : 000 -30 098 degrees QTc Int : 533 ms Poor data quality, interpretation may be adversely affected Normal sinus rhythm Left axis deviation Left bundle branch block Abnormal ECG When compared with ECG of 14-MAR-2021 16:24, T wave inversion now evident in Lateral leads QT has lengthened Confirmed by Christofer Naranjo ([id number]) on 07/12/2021 1:29:01 PM Referred By: Confirmed By:Christofer Naranjo
[2021-07-12 14:05] LABS: Influenza A virus by PCR Negative (Neg); Influenza B virus by PCR Negative (Neg); RSV by PCR Negative (Neg); SARS CoV2 RNA(COVID-19) InHosp NEGATIVE (Negative)
[2021-07-12 14:38] LABS: Basophils # (auto) 0.07 K/uL (0-0.2); Basophils % (auto) 0.7 %; Eosinophils # (auto) 0.12 K/uL (0-0.5); Eosinophils % (auto) 1.3 %; Hematocrit (blood only) 38.1 % (37-47); Immature Granulocytes # (auto) 0.02 K/uL (0.00-0.02); Immature Granulocytes % (auto) 0.2 %; Lymphocytes # (auto) 2.19 K/uL (1.2-3.4); Lymphocytes % (auto) 23.4 %; Mean Corpuscular Hgb Conc 31.5 g/dL (32-36); Mean Corpuscular Volume 73.1 fL (80-100); Mean Platelet Volume 10.2 fL (7.4-10.4); Monocytes # (auto) 0.78 K/uL (0.11-0.59); Monocytes % (auto) 8.4 %; Neutrophils # (auto) 6.16 K/uL (1.4-6.5); Platelet Count 441 K/uL (130-400); RDW Coefficient of Variation 18.2 % (11.5-14.5); RDW Standard Deviation 48.4 fL (36.4-46.3); Red Blood Count 5.21 M/uL (4.2-5.4); White Blood Count 9.34 K/uL (4.8-10.8)
--- NOTE | 2021-07-12 14:43 | CT Scan Report ---
CT OF THE HEAD WITHOUT CONTRAST CLINICAL HISTORY: Nausea. COMPARISON STUDY: Head CT March 14, 2021. TECHNIQUE: Helical axial images of the head were obtained without IV contrast. Automated exposure con trol was utilized for the study. A dose lowering technique was utilized adhering to the principles o f ALARA. FINDINGS: No acute intracranial hemorrhage, midline shift or mass effect is present. Aneurysm clips w ithin the region of the distal left MCA are unchanged. Adjacent encephalomalacia is unchanged. Ventri cular system is stable. Basal cisterns are patent. White matter hypodensity suggests small vessel dis ease. The appearance of the brain is unchanged. Left sided craniotomy is noted. There is no acute narcisa varial fracture. IMPRESSION: No acute intracranial findings. No change in appearance of the brain. ACT 112: Negative or not required by law. Electronically signed by: Alejo No M.D. 07/12/2021 2:42 PM
--- NOTE | 2021-07-12 14:53 | CT Scan Report ---
CT OF THE ABDOMEN AND PELVIS WITHOUT CONTRAST CLINICAL HISTORY: Abdominal pain. COMPARISON STUDY: CT of the abdomen and pelvis November 15, 2019. TECHNIQUE: Axial images of the abdomen and pelvis were obtained without IV contrast. Images were revi ewed in the axial, sagittal, and coronal planes. Automated exposure control was utilized for the timothy dy. A dose lowering technique was utilized adhering to the principles of ALARA. FINDINGS: T11 compression fracture is noted. This was shown on chest CT of March 01, 2021. Cardiomeg nathaniel is noted with extensive coronary artery calcification. A moderate sized hiatal hernia is noted wi th partially intrathoracic stomach. Subpleural opacities within the lower lungs favor atelectasis. No pneumatosis, free air or portal venous gas is present. This exam is compromised by lack of contrast and body wall contacting injury. Unenhanced images of the liver, spleen, adrenal glands and pancreas are unremarkable. Mild biliary ductal dilatation is unchanged and CT of the November 15, 2019 and li bea related to cholecystectomy. There is no evidence for a bowel obstruction. Colonic diverticulosis is noted without evidence for acute diverticulitis. Mild wall thickening of the transverse colon is likely due to underdistention. Appendix is not visualized. There is no lymphadenopathy. No acute lumb ar spine or pelvic fracture is present. There is no hydronephrosis. No renal, ureteral or bladder narcisa culi are present. Numerous bilateral renal lesions are suboptimally assessed on this unenhanced exam. A 1.2 cm lesion arising from the lower pole of the left kidney measures above water attenuation. IMPRESSION: 1. No bowel obstruction. 2. Mild wall thickening of the transverse colon. This is likely due to underdistention although a non specific colitis could appear similar. Colonic diverticulosis without evidence for acute diverticulit is. 3. No urinary calculi or hydronephrosis. 4. Numerous small bilateral renal lesions. These are suboptimally assessed on this unenhanced exam. I ndeterminate 1.2 cm lesion within the lower pole of the left kidney could reflect a hyperdense cyst o r small solid renal lesion. A nonemergent renal protocol MRI could be obtained. ACT 112: Negative or not required by law. Electronically signed by: Alejo No M.D. 07/12/2021 2:50 PM
--- NOTE | 2021-07-12 14:57 | XRay Report ---
XR chest 1V portable CLINICAL HISTORY: Hypoxia. Abdominal pain. COMPARISON STUDY: Chest CT March 01, 2021. Chest radiograph March 14, 2021. FINDINGS: There is no pneumothorax or pleural effusion. Note is made of cardiomegaly without evidence for pulmonary edema. A hiatal hernia is present. There is no consolidation to suggest pneumonia. IMPRESSION: 1. No acute cardiopulmonary findings. 2. Cardiomegaly. No evidence for pulmonary edema. 3. Hiatal hernia with partially intrathoracic stomach. ACT 112: Negative or not required by law. Electronically signed by: Alejo No M.D. 07/12/2021 2:56 PM
[2021-07-12 15:08] LABS: Troponin I High Sensitivity 14.8 pg/ml (0-14)
[2021-07-12 16:25] LABS: Alanine Aminotransferase 12 U/L (7-52); Albumin Globulin Ratio 1.1 (0.9-2); Albumin Level 3.7 gm/dl (3.4-5.0); Alkaline Phosphatase 105 U/L (34-104); Anion Gap 11 (3-11); BUN Creatinine Ratio 14.5 (10-20); Bilirubin,Total 0.4 mg/dl (0.2-1.0); Blood Urea Nitrogen 8 mg/dl (6-23); Calcium 9.4 mg/dl (8.5-10.1); Carbon Dioxide 24 mmol/L (21-32); Chloride 104 mmol/L (98-107); Creatinine Clr Calc Pharmacy 102.1 ml/min; Est GFR (African American) 107.1 ml/min; Est GFR (Non-African American) 92.4 ml/min; Globulin 3.5 gm/dl (2.5-4.0); Glucose 133 mg/dl (70-99(Fasting)); Lipase 9 U/L (11-82); Sodium 139 mmol/L (136-145); Total Protein 7.2 gm/dl (6.0-8.3)
--- NOTE | 2021-07-12 17:18 | History & Physical Report ---
Date of Service July 12, 2021 Assessment & Plan (1) Hypoxia: Plan: Patient has acute respiratory failure with hypoxia of undetermined significance. Previous episodes were resolved with treatment with antibiotics and steroids with suggestion of pneumonia. There is record in her chart of a dye allergy and a CTA was considered but not performed in ER because of this. He did have a CT angiogram in February 2021 which was negative for PE but suggestive of possible pneumonia. To this and we will get a CT angiogram with premedication and begin treatment for pneumonia and inflammatory lung disease with steroids as was her last treatment in February which resulted in improvement of her hypoxia. As she is home alone (records we will also check a urine tox screen in case she is taking any sedating medications that are on her med rec (2) Morbid obesity with BMI of 50.0-59.9, adult: (3) T2DM (type 2 diabetes mellitus): Plan: basal bolus insulin glargine 50 hs and ssi, however with poor intake will reduce glargine to 20 units with ssi hold metformin (4) Seizure: Plan: pt with history of seizure disorder continue keppra (5) Elevated troponin: Plan: pt has some mild elevation of trop, but no symptoms, intermediate manager LBBB, will trend remains on asa and metoprolol (6) Hypertension: Plan: metoprolol xl 25 mg , diltiazem 180 and atorvastatin for cardiovascular risk reduction and treatment of dyslipidemia (7) Depression: Plan: effexor Plan: heparin for dvt prevention, full code History of Present Illness Primary Care Provider: Margarito Al 75 F presents by EMS with sob and hypoxia preceeded by N/v and anorexia for one day. Ems confirms hypoxia, no previous history of lung disease,but she is morbidly obese and reportedly "occasionally uses oxygen at home" Here in apr 15 for fall and rehab stay, in march 15 similar presentation to today, PE ruled out and treated for pneumonia with antibiotics and steroids, improved Pt is without focal issues with exception of nausea and not feeling well, claims to have had daily normal bowel movements, she has no urine symptoms no cough, and has had no chest pain or subjective dyspnea Allergies Allergy/AdvReac Type Severity Reaction Status Date / Time fentanyl Allergy Intermediate HIGH BLOOD Verified 06/11/21 12:54 PRESSURE, SKIN FLUSHED Cephalosporins Allergy Mild RASH Verified 06/11/21 12:54 Penicillins Allergy Mild RASH Verified 06/11/21 12:54 Sulfa (Sulfonamide Allergy Mild CAN'T Verified 06/11/21 12:54 Antibiotics) REMEMBER aspartame Allergy Unknown Unknown Verified 06/11/21 12:54 bee venom protein (honey bee) Allergy Unknown CAN'T Verified 06/11/21 12:54 REMEMBER cephalexin Allergy Unknown Rash Verified 06/11/21 12:54 Iodinated Contrast Media Allergy Unknown PASS OUT, Verified 06/11/21 12:54 VOMITING ketorolac Allergy Unknown Unknown Verified 06/11/21 12:54 meperidine Allergy Unknown CAN'T Verified 06/11/21 12:54 REMEMBER stevioside [From Stevia] Allergy Unknown Unknown Verified 06/11/21 12:54 sucralose Allergy Unknown Unknown Verified 06/11/21 12:54 morphine AdvReac Intermediate Nausea Verified 06/11/21 12:54 codeine AdvReac Mild ALTERED Verified 06/11/21 12:54 MENTAL STATUS Home Medications Medication Instructions Recorded Confirmed Type atorvastatin 20 mg tablet 20 mg PO HS #30 tab 02/09/19 07/12/21 History cetirizine 10 mg tablet 10 mg PO DAILY tab 02/09/19 07/12/21 History cyanocobalamin (vitamin B-12) 1,000 mcg PO DAILY #30 cap 02/09/19 07/12/21 History 1,000 mcg capsule diltiazem HCl 180 mg 180 mg PO QAM cap 02/09/19 07/12/21 History capsule,extended release 24 hr docusate sodium 100 mg capsule 200 mg PO HS cap 02/09/19 07/12/21 History magnesium oxide 400 mg (241.3 mg 400 mg PO QAM tab 02/09/19 07/12/21 History magnesium) tablet nitroglycerin 0.4 mg sublingual 0.4 mg SL DIRECTED PRN tab 02/09/19 07/12/21 History tablet pantoprazole 40 mg tablet,delayed 40 mg PO QAM tab 02/09/19 07/12/21 History release venlafaxine 150 mg 150 mg PO QAM cap 02/09/19 07/12/21 History capsule,extended release 24 hr acetaminophen 500 mg tablet 500 mg PO Q6H PRN 03/01/19 07/12/21 History (Tylenol Extra Strength) polyethylene glycol 3350 17 gram 17 g PO QAM 03/01/19 07/12/21 History oral powder packet (Miralax) aspirin 81 mg tablet,delayed 81 mg PO QAM 11/14/19 07/12/21 History release (Aspirin Low Dose) cholecalciferol (vitamin D3) 50 2,000 unit PO QAM 11/14/19 07/12/21 History mcg (2,000 unit) capsule (Vitamin D3) oxybutynin chloride 5 mg tablet 5 mg PO BID 11/14/19 07/12/21 History pregabalin 150 mg capsule 150 mg PO BID 30 Days #60 cap 12/04/19 07/12/21 Rx levetiracetam 500 mg tablet 500 mg PO BID 02/24/20 07/12/21 History metformin 500 mg tablet 1,000 mg PO BIDM 90 Days #360 tab 11/08/20 07/12/21 Rx metoprolol succinate 25 mg 25 mg PO DAILY 03/01/21 07/12/21 History tablet,extended release 24 hr insulin aspart U-100 100 unit/mL See Rx Instructions .ROUTE 06/11/21 07/12/21 History (3 mL) subcutaneous pen (Novolog .COMPLEX ml Flexpen U-100 Insulin aspart) insulin glargine 100 unit/mL (3 50 unit SUBCUT HS ml 06/11/21 07/12/21 History mL) subcutaneous pen (Lantus Solostar U-100 Insulin) Past Med/Surg History Medical History HANNAH (acute kidney injury) Anesthesia in both legs Diabetic peripheral neuropathy Dyslipidemia Epilepsy Essential tremor Hypertension Hypoxic Loss of memory Obesity Peripheral neuropathy Sensory ataxia T2DM (type 2 diabetes mellitus) Tremor Vitamin B12 deficiency Vitamin D deficiency Surgical History Hx of cerebral aneurysm repair S/P adenoidectomy S/P cholecystectomy S/P hysterectomy S/P tonsillectomy S/P umbilical hernia repair, follow-up exam Status post tubal ligation Family History Mother Cancer Father Coronary heart disease Social History Smoking Status: Never smoker Hx Alcohol Use: Yes Alcohol type: wine Hx Substance Use: No Preferred Language: Malian Communication Ability: Effective 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 Beliefs That Will Affect Care: None marital status: / Current Living Situation: Alone Feels Safe at Home: Yes Assistive Devices: Brace/Splint/Immobilizer, Glasses and Walker Review of Systems Review of Systems: Mild distress and fatigue no headache, no visual changes no speech or swallowing issues no chest pain, pressure or palpitations no shortness of breath, cough or wheezes, is hypoxic minor right sided abdominal pain, c/o mild nausea no vomiting, no diarrhea no dysuria, hematuria or frequency no focal joint pain or swelling no back pain, CVA tenderness or radicular pain no bruising, bleeding or rashes no focal signs of weakness or numbness or altered sensation no complaints of anxiety or depression.. Physical Exam Physical Exam: The patient appeared morbidly obese and in no significant distress , although I confirmed hypoxa Vital signs as documented. Head exam is normocephalic atraumatic Neck is without JVD, thyromegaly, or carotid bruits. Lungs are clear but diminshed Cardiac exam, Rhythm is regular.. No murmurs, rubs or gallops. Abdominal exam reveals normal bowel sounds, soft focal tenderness is minor but RUQ, no masses Extremities are trace edematous and both pedal pulses are present Neurologic exam is alert and oriented, no focal loss of strength or sensation Skin is without bruises or rashes Psychologically is without concerns for anxiety or depression.. Results & Data Results & Data ([facility]) Vital Signs (Past 12 Hours) Vital Signs Temp Pulse Resp BP Pulse Ox 07/12/21 13:17 20 95 07/12/21 12:32 20 93 07/12/21 12:29 99.0 F 92 H 20 174/96 H 87 L Diagnostic Findings Abdomen/Pelvis CT 07/12/21 12:36 CT OF THE ABDOMEN AND PELVIS WITHOUT CONTRAST CLINICAL HISTORY: Abdominal pain. COMPARISON STUDY: CT of the abdomen and pelvis November 15, 2019. TECHNIQUE: Axial images of the abdomen and pelvis were obtained without IV contrast. Images were reviewed in the axial, sagittal, and coronal planes. Automated exposure control was utilized for the study. A dose lowering technique was utilized adhering to the principles of ALARA. FINDINGS: T11 compression fracture is noted. This was shown on chest CT of March 01, 2021. Cardiomegaly is noted with extensive coronary artery calcification. A moderate sized hiatal hernia is noted with partially intrathoracic stomach. Subpleural opacities within the lower lungs favor atelectasis. No pneumatosis, free air or portal venous gas is present. This exam is compromised by lack of contrast and body wall contacting injury. Unenhanced images of the liver, spleen, adrenal glands and pancreas are unremarkable. Mild biliary ductal dilatation is unchanged and CT of the November 15, 2019 and likely related to cholecystectomy. There is no evidence for a bowel obstruction. Colonic diverticulosis is noted without evidence for acute diverticulitis. Mild wall thickening of the transverse colon is likely due to underdistention. Appendix is not visualized. There is no lymphadenopathy. No acute lumbar spine or pelvic fracture is present. There is no hydronephrosis. No renal, ureteral or bladder calculi are present. Numerous bilateral renal lesions are suboptimally assessed on this unenhanced exam. A 1.2 cm lesion arising from the lower pole of the left kidney measures above water attenuation. IMPRESSION: 1. No bowel obstruction. 2. Mild wall thickening of the transverse colon. This is likely due to underdistention although a nonspecific colitis could appear similar. Colonic diverticulosis without evidence for acute diverticulitis. 3. No urinary calculi or hydronephrosis. 4. Numerous small bilateral renal lesions. These are suboptimally assessed on this unenhanced exam. Indeterminate 1.2 cm lesion within the lower pole of the left kidney could reflect a hyperdense cyst or small solid renal lesion. A nonemergent renal protocol MRI could be obtained. ACT 112: Negative or not required by law. Electronically signed by: Alejo No M.D. 07/12/2021 2:[address] 07/12/21 12:36 CT OF THE HEAD WITHOUT CONTRAST CLINICAL HISTORY: Nausea. COMPARISON STUDY: Head CT March 14, 2021. TECHNIQUE: Helical axial images of the head were obtained without IV contrast. Automated exposure control was utilized for the study. A dose lowering technique was utilized adhering to the principles of ALARA. FINDINGS: No acute intracranial hemorrhage, midline shift or mass effect is present. Aneurysm clips within the region of the distal left MCA are unchanged. Adjacent encephalomalacia is unchanged. Ventricular system is stable. Basal cisterns are patent. White matter hypodensity suggests small vessel disease. The appearance of the brain is unchanged. Left sided craniotomy is noted. There is no acute calvarial fracture. IMPRESSION: No acute intracranial findings. No change in appearance of the brain. ACT 112: Negative or not required by law. Electronically signed by: Alejo No M.D. 07/12/2021 2:42 PM Chest X-Ray 07/12/21 12:37 XR chest 1V portable CLINICAL HISTORY: Hypoxia. Abdominal pain. COMPARISON STUDY: Chest CT March 01, 2021. Chest radiograph March 14, 2021. FINDINGS: There is no pneumothorax or pleural effusion. Note is made of cardiomegaly without evidence for pulmonary edema. A hiatal hernia is present. There is no consolidation to suggest pneumonia. IMPRESSION: 1. No acute cardiopulmonary findings. 2. Cardiomegaly. No evidence for pulmonary edema. 3. Hiatal hernia with partially intrathoracic stomach. ACT 112: Negative or not required by law. Electronically signed by: Alejo No M.D. 07/12/2021 2:56 PM ECG Additional Comments: left bundle branch block PG Care Time/CCT Total # of Minutes Spent Total Time Spent with Patient: Total time spent is greater than 50% in coordination of care (as documented) at patient's floor/unit and/or counseling patient: Coding Level of Care Code 53019 Initial Inpt Care Lvl 3 Diagnoses Hypoxia R09.02 Morbid obesity with BMI of 50.0-59.9, adult E66.01; Z68.43 T2DM (type 2 diabetes mellitus) E11.9 Seizure R56.9 Hypertension I10 Depression F32.A Elevated troponin R77.8
[2021-07-12] MEDS ORDERED: ERTAPENEM SODIUM 10 ML IV STA ×2 (17:30→20:48)
[2021-07-12] MEDS ORDERED: GLUCOSE 40% GEL 15 GM TUBE PO PRN (17:31)
[2021-07-12] MEDS ORDERED: DEXTROSE 50% 50 ML SYRINGE IV PRN (17:31)
[2021-07-12] MEDS ORDERED: GLUCOSE 10 TABS/TUBE PO PRN (17:31)
[2021-07-12] MEDS ORDERED: GLUCAGON FOR INJ 1 MG VIAL SQ PRN (17:31)
[2021-07-12] MEDS ORDERED: CARBOHYDRATES FOR HYPOGLYCEMIA PO PRN (17:31)
[2021-07-12 17:38] LABS: Potassium 3.7 mmol/L (3.5-5.1)
[2021-07-12] MEDS ORDERED: hydrALAZINE HCL 20 MG/ML VIAL IV PRN (18:18)
[2021-07-12] MEDS ORDERED: ALUMINUM/MAGNESIUM SUSP 30 ML UDC PO PRN (19:12)
[2021-07-12] MEDS ORDERED: ACETAMINOPHEN 325 MG TAB PO PRN (19:12)
[2021-07-12] MEDS ORDERED: ONDANSETRON INJ 2 MG/ML 2 ML VIAL IV PRN (19:12)
[2021-07-12] MEDS: DOXYCYCLINE HYCLATE 100 MG in DEXTROSE 5% 100 ML IV SCH (20:03)
[2021-07-12] MEDS: levETIRAcetam 500 MG TAB PO SCH (20:09)
[2021-07-12] MEDS: DOCUSATE SODIUM 100 MG CAP PO SCH (20:10)
[2021-07-12] MEDS: HEPARIN SOD 5,000 UNIT/0.5 ML VIAL SQ SCH (20:11)
[2021-07-12] MEDS: ATORVASTATIN 20 MG TAB PO SCH (20:11)
[2021-07-12] MEDS: INSULIN ASPART PER UNIT SC SCH (20:11)
[2021-07-12] MEDS ORDERED: ERTAPENEM SODIUM IV ONE (21:00)
[2021-07-12] MEDS ORDERED: methylPREDNISolone 40 MG in SYRINGE 0 ML IV STA ×2 (21:02→21:05)
[2021-07-12] MEDS ORDERED: ERTAPENEM SODIUM 1,000 MG in SYRINGE 0 ML IV ONE (21:15)
[2021-07-12] MEDS ORDERED: methylPREDNISolone 40 MG in SYRINGE 0 ML IV ONE (21:32)
[2021-07-12] MEDS ORDERED: diphenhydrAMINE 50 MG/ML VIAL IV ONE (21:32)
[2021-07-13] MEDS ORDERED: methylPREDNISolone 40 MG in SYRINGE 0 ML IV SCH (02:00)
[2021-07-13] MEDS ORDERED: methylPREDNISolone 40 MG in SYRINGE 0 ML IV ONE (02:00)
[2021-07-13] MEDS ORDERED: diphenhydrAMINE 50 MG/ML VIAL ONE (02:09)
[2021-07-13 03:41] LABS: Hematocrit (blood only) 38.6 % (37-47); Hemoglobin 11.8 g/dL (12.0-16.0); Mean Corpuscular Hemoglobin 22.9 pg (25-34); Mean Corpuscular Hgb Conc 30.6 g/dL (32-36); Mean Corpuscular Volume 74.8 fL (80-100); Mean Platelet Volume 9.7 fL (7.4-10.4); Platelet Count 400 K/uL (130-400); RDW Coefficient of Variation 18.5 % (11.5-14.5); RDW Standard Deviation 50.9 fL (36.4-46.3); Red Blood Count 5.16 M/uL (4.2-5.4); White Blood Count 12.38 K/uL (4.8-10.8)
[2021-07-13 04:06] LABS: BUN Creatinine Ratio 18.7 (10-20); Calcium 9.3 mg/dl (8.5-10.1); Creatinine Clr Calc Pharmacy 75.5 ml/min; Est GFR (Non-African American) 78.5 ml/min; Magnesium 1.9 mg/dl (1.7-2.4); Potassium 3.9 mmol/L (3.5-5.1)
--- NOTE | 2021-07-13 05:37 | Procedure Note ---
Procedure Note Date of Service July 13, 2021 Note ENDURANCE CATHETER PROCEDURE NOTE: Procedure: Intermediate Indwelling Peripherally Inserted IV Catheter Placement Attending: Dr. Lavelle Serrano Provider: JESUS Summers Indication: Need for IV Access, Poor Vascular Access Anesthesia: None Verbal consent was obtained from patient prior to performing the procedure. A time-out was completed verifying correct patient, procedure, site, positioning, and implant(s) or special equipment if applicable. Utilizing bedside ultrasound, vascularity of the right upper extremity was assessed. Vessel size was noted for appropriate catheter selection and skin was marked with gentle pressure. Patients right upper extremity was prepped and draped in the usual sterile fashion utilizing chlorhexidine. Ultrasound guidance was used to aid needle placement. A 20 g Endurance Catheter was introduced into the vein in the right forearm under direct ultrasound guidance. Guide wire was easily deployed without resistance. Catheter was threaded over the guide wire without resistance and the entire apparatus was removed intact. Good venous blood return was noted in the catheter. The IV catheter was easily flushed with sterile saline flush. Sterile clave was attached to the end of the catheter and good blood return was again noted. Tourniquet was released. StatLock device and sterile dressing were applied. The patient tolerated the procedure well. Blood Loss: Minimal Complications: None Procedural Ultrasound Guidance: Procedure Date: 07/13/2021 Indication: Poor Vascular Access Attending: Dr. Lavelle Serrano Povider: JESUS Summers Artery/Veins Identified: YES Access confirmed in Vein with ultrasound: YES Complications: NONE Patient tolerated procedure: WELL Coding
[2021-07-13] MEDS ORDERED: OPTIRAY 320 125ml IV ONE (05:55)
--- NOTE | 2021-07-13 07:02 | CT Scan Report ---
CT ANGIOGRAPHY OF THE CHEST, PULMONARY EMBOLUS PROTOCOL CLINICAL HISTORY: Chest pain and shortness of breath. Evaluate for pulmonary embolus. COMPARISON STUDY: Chest CT March 01, 2021 and chest radiograph July 12, 2021. TECHNIQUE: Following IV administration of 120 mL of Optiray, helical axial images of the chest were o btained utilizing the pulmonary embolus protocol. Maximal intensity projections and sagittal and cor onal reformats were viewed on an independent 3D workstation. IV contrast was administered without co mplication. Automated exposure control was utilized for the study. A dose lowering technique was ut ilized adhering to the principles of ALARA. CT DOSE: 777.25 mGy.cm FINDINGS: Multinodular thyroid gland is again noted, including a 1.9 cm left lobe nodule. No pulmona ry emboli are identified. There is mild dilatation of the central pulmonary arteries. Moderate cardia c megaly is noted with extensive coronary artery calcification. A large hiatal hernia with intrathora cic stomach is noted. Enhancing bilateral lower lobe airspace opacity favors atelectasis. There is no pneumothorax or pleural effusion. Old T11 compression deformity is unchanged. Visualized portions of the upper abdomen are unremarkable. Dilatation of the common bile duct is unchanged and likely relat ed to cholecystectomy. IMPRESSION: 1. No pulmonary emboli identified. 2. Bilateral lower lobe airspace opacities which favor atelectasis. An infectious process is within t he differential although considered less likely. 3. Cardiomegaly and extensive coronary artery calcification. 4. Dilatation of the central pulmonary arteries which raises the possibility of pulmonary arterial hy pertension. 5. Large hiatal hernia. ACT 112: Negative or not required by law. Electronically signed by: Alejo No M.D. 07/13/2021 7:00 AM
[2021-07-13] MEDS: DOXYCYCLINE HYCLATE 100 MG in DEXTROSE 5% 100 ML IV SCH ×2 (08:00→18:47)
[2021-07-13] MEDS: HEPARIN SOD 5,000 UNIT/0.5 ML VIAL SQ SCH ×2 (08:14→20:26)
[2021-07-13] MEDS: dilTIAZem HCL 180 MG CAPCR PO SCH (08:14)
[2021-07-13] MEDS: levETIRAcetam 500 MG TAB PO SCH ×2 (08:14→20:27)
[2021-07-13] MEDS: METOPROLOL SUCC 25MG EXT REL TAB PO SCH (08:15)
[2021-07-13] MEDS: ASPIRIN 81 MG ECTAB PO SCH (08:15)
[2021-07-13] MEDS: VENLAFAXINE HCL XR 150 MG CAPXR PO SCH (08:15)
[2021-07-13] MEDS: POLYETHYLENE (MIRALAX) 17 GM PACK PO SCH (08:15)
[2021-07-13] MEDS: INSULIN ASPART PER UNIT SC SCH ×4 (08:20→20:32)
[2021-07-13] MEDS ORDERED: PANTOprazole 40 MG TAB PO SCH (09:00)
--- NOTE | 2021-07-13 10:54 | Hospitalist Progress Note ---
Date of Service July 13, 2021 Assessment & Plan (1) Nausea: Plan: [id number]year-old white female with a history of DM, Morbid Obesity, HTN, Depression and Seizure. Nausea was the reason patient summoned EMS services Had subjective chills without fevers. No diarrhea. No abdominal pain Does have dyspepsia. That may be the cause of her nausea given her associated large hiatal hernia Could have had a viral syndrome Denies early satiety. Does have underlying diabetes. May consider gastric emptying study if persistent problem (A1C repeated, pending) Can utilize Zofran as needed (2) Hypoxia: Plan: Patient found to be coincidentally hypoxic when seen by EMS services (87% on room air) Has been requiring 2 L of supplemental oxygen to maintain a pulse ox in the low to mid 90s Patient denies shortness of breath or any respiratory symptoms which leads me to believe this is more of a chronic issue I highly suspect this is likely her baseline. She does have underlying MEGHAN and does not use a CPAP. Utilizes nocturnal oxygen Presume she has obesity hypoventilation syndrome. May also have a component of restrictive lung disease from her large hiatal hernia We will obtain an echocardiogram to assess LV function Patient would likely need PFTs, sleep study, and perhaps right-sided cardiac catheterization which can all be done as an outpatient Two-step pulse oximetry will be performed in the morning. Again, she does use nocturnal oxygen but may need oxygen during the day. We will obtain a VBG to assess bicarb (3) Morbid obesity with BMI of 50.0-59.9, adult: Plan: Recommend weight loss and lifestyle/behavioral modification (4) T2DM (type 2 diabetes mellitus): Plan: Holding metformin Utilizing basal/bolus insulin while in house A1c obtained: Pending (5) Seizure: Plan: Pt with history of seizure disorder continue keppra (6) Elevated troponin: Plan: High-sensitivity troponin mildly elevated (14.8) without chest pain, or acute EKG changes Follow-up troponin 12.3 Echocardiogram being obtained as above (7) Hypertension: Plan: Continue metoprolol xl 25 mg , diltiazem 180 and atorvastatin for cardiovascular risk reduction and treatment of dyslipidemia (8) Depression: Plan: Continue effexor Plan: heparin for dvt prevention, full code Admission and Anticipated Discharge Date Admission Date: July 12, 2021 Subjective Patient seen on daily rounds today. Presented to the hospital yesterday due to complaints of nausea. She called EMS services and was found to be hypoxic (87% on room air). She denies shortness of breath. No respiratory symptoms including fevers, chills, cough, orthopnea, PND or peripheral edema. Requiring 2 L to maintain a pulse ox in the mid 90s. Was hospitalized February 2021 with sepsis syndrome. At that time she was found to have multilobar pneumonia along with leukocytosis, fever, tachycardia and tachypnea. She responded to antibiotics and has been in her usual state of health since. CXR showed no acute cardiopulmonary process but large hiatal hernia. CTA shows no evidence of PE. Bibasilar groundglass opacities favoring atelectasis with hiatal hernia. Dilated central pulmonary artery noted raising the possibility of pulmonary artery hypertension. Patient denies any nausea today but is complaining of dyspepsia and excessive eructation. Upon further questioning, she does have a history of MEGHAN but was not using her CPAP thus the [employer] company took this. She is using nocturnal oxygen. Review of Systems Review of Systems: All systems reviewed and are unremarkable except as noted in HPI and below Denies fevers, chills, headache, nasal congestion, sore throat, cough, chest pain, shortness of breath, palpitations, orthopnea, PND, abdominal pain, nausea, vomiting, diarrhea, constipation, dysuria, hematuria, frequency, back pain, joint pain or swelling, easy bruising or bleeding, skin lesions or rashes. Physical Exam Physical Exam: General: Morbidly obese white female, resting comfortably in her hospital bed. Speaking full sentences. Does not appear ill or toxic HEENT: Head is AT/NC. Buccal mucosa is moist and pink Neck: No JVD. Negative hepatojugular reflex Cardiac: Distant heart sounds without M/G/R Lungs: Speaking full sentences on supplemental oxygen. Normal respiratory effort. Good air exchange throughout without wheezes, rales or rhonchi Abdomen: Normoactive X4. Abdomen soft. Somewhat difficult to examine due to her habitus but mostly nontender. Subtle tenderness in the epigastrium. No right upper quadrant tenderness. Negative Gregg sign. Extremities: + Adiposity without true pitting edema Neuro: A&O X4. Cranial nerves II through XII are grossly intact. No focal neuro deficits Skin: No obvious skin lesions or rashes Psych: Appropriate affect. Pleasant and cooperative Results & Data Results & Data ([facility]) Vital Signs (Past 12 Hours) Vital Signs Temp Pulse Pulse Resp BP Pulse Ox 07/13/21 09:53 91 H 07/13/21 07:50 36.8 C 83 18 165/80 H 93 07/13/21 06:29 80 07/13/21 00:00 36.9 C 87 22 154/72 H 93 PG Care Time/CCT Total # of Minutes Spent Total Time Spent with Patient: Total time spent is greater than 50% in coordination of care (as documented) at patient's floor/unit and/or counseling patient: Coding Level of Care Code 14521 Subseq Hosp Care Lvl 2 Diagnoses Hypoxia R09.02 Morbid obesity with BMI of 50.0-59.9, adult E66.01; Z68.43 T2DM (type 2 diabetes mellitus) E11.9 Seizure R56.9 Elevated troponin R77.8 Hypertension I10 Depression F32.A Nausea R11.0
[2021-07-13 11:56] LABS: Base Excess VBG -1.4 mEq/L; HCO3 VBG 24 mmol/L; PCO2 VBG 45 mmHg (38-50); PO2 VBG 32 mmHg; pH VBG 7.35 (7.36-7.41)
[2021-07-13 12:02] LABS: Oxygen Saturation VBG < 60.0 %
[2021-07-13] MEDS ORDERED: INSULIN HUMAN REGULAR PER UNIT 7 UNITS in SYRINGE 6.93 ML IV STA (14:11)
--- NOTE | 2021-07-13 14:54 | XCELERA ---
[id number]
[2021-07-13] MEDS: DOCUSATE SODIUM 100 MG CAP PO SCH (20:26)
[2021-07-13] MEDS: ATORVASTATIN 20 MG TAB PO SCH (20:26)
[2021-07-13] MEDS: PANTOprazole 40 MG TAB PO SCH (20:26)
[2021-07-13] MEDS ORDERED: INSULIN GLARGINE SOLOSTAR 100 UNITS/ML 3 ML PEN SC SCH (21:00)
[2021-07-14 06:57] LABS: Appearance Urine Clear (Clear); Bacteria Urine Automated Negative (Negative); Bilirubin Urine Negative (Negative); Blood Urine Negative (Negative); Color Urine Yellow; Glucose Urine UA Trace (Negative); Ketones Urine Negative (Negative); Leukocyte Esterase Urine Negative (Negative); Nitrite Urine Negative (Negative); Protein Urine 1+ (Negative); RBC Urine Automated 0-4 /hpf (0-4); Urobilinogen Urine Negative (Negative)
[2021-07-14 07:07] LABS: Hematocrit (blood only) 34.5 % (37-47); Hemoglobin 10.6 g/dL (12.0-16.0); Mean Corpuscular Hgb Conc 30.7 g/dL (32-36); Mean Platelet Volume 10.2 fL (7.4-10.4); Platelet Count 390 K/uL (130-400); RDW Coefficient of Variation 18.1 % (11.5-14.5); RDW Standard Deviation 49.7 fL (36.4-46.3); White Blood Count 10.95 K/uL (4.8-10.8)
[2021-07-14 07:35] LABS: BUN Creatinine Ratio 23.9 (10-20); Calcium 9.6 mg/dl (8.5-10.1); Creatinine Clr Calc Pharmacy 85.1 ml/min; Est GFR (African American) 100.4 ml/min; Est GFR (Non-African American) 86.6 ml/min; Magnesium 1.9 mg/dl (1.7-2.4)
[2021-07-14 07:40] LABS: Amphetamines+Metham, Urine Neg (Neg); Barbiturates, Urine Neg (Neg); Benzodiazepine, Urine Neg (Neg); Cocaine, Urine Neg (Neg); MDMA (Ecstacy), Urine Neg (Neg); Methadone, Urine Neg (Neg); Opiate, Urine Neg (Neg); Phencyclidine, Urine Neg (Neg)
[2021-07-14 07:51] LABS: Estimated Average Glucose 169 mg/dl; Hemoglobin A1C 7.5 % (4.5-5.6)
[2021-07-14] MEDS: DOXYCYCLINE HYCLATE 100 MG in DEXTROSE 5% 100 ML IV SCH (07:59)
[2021-07-14] MEDS: ASPIRIN 81 MG ECTAB PO SCH (08:01)
[2021-07-14] MEDS: HEPARIN SOD 5,000 UNIT/0.5 ML VIAL SQ SCH (08:02)
[2021-07-14] MEDS: dilTIAZem HCL 180 MG CAPCR PO SCH (08:02)
[2021-07-14] MEDS: levETIRAcetam 500 MG TAB PO SCH (08:02)
[2021-07-14] MEDS: METOPROLOL SUCC 25MG EXT REL TAB PO SCH (08:02)
[2021-07-14] MEDS: PANTOprazole 40 MG TAB PO SCH (08:03)
[2021-07-14] MEDS: VENLAFAXINE HCL XR 150 MG CAPXR PO SCH (08:03)
[2021-07-14] MEDS: POLYETHYLENE (MIRALAX) 17 GM PACK PO SCH (08:03)
[2021-07-14] MEDS: INSULIN ASPART PER UNIT SC SCH ×2 (08:40→12:28)
[2021-07-14] MEDS ORDERED: FUROSEMIDE INJ 20 MG/2 ML VIAL IV ONE (09:24)
--- NOTE | 2021-07-14 17:32 | Discharge Summary ---
Date of Service July 14, 2021 Admission HPI Per Admitting Provider 75 F presents by EMS with sob and hypoxia preceeded by N/v and anorexia for one day. Ems confirms hypoxia, no previous history of lung disease,but she is morbidly obese and reportedly "occasionally uses oxygen at home" Here in apr 15 for fall and rehab stay, in march 15 similar presentation to today, PE ruled out and treated for pneumonia with antibiotics and steroids, improved Pt is without focal issues with exception of nausea and not feeling well, claims to have had daily normal bowel movements, she has no urine symptoms no cough, and has had no chest pain or subjective dyspnea Principal Diagnosis 1. Nausea- resolved 2. Dyspepsia 3. Hypoxemia- suspect this is chronic (presumed obesity hypoventilation syndrome) 4. Large Hiatal Hernia- resulting is dyspepsia and likely restrictive lung disease Discharge Exam General: Morbidly obese white female, resting comfortably in her hospital bed. Speaking full sentences. Does not appear ill or toxic HEENT: Head is AT/NC. Buccal mucosa is moist and pink Neck: No JVD. Negative hepatojugular reflex Cardiac: Distant heart sounds without M/G/R Lungs: Speaking full sentences on supplemental oxygen. Normal respiratory effort. Good air exchange throughout without wheezes, rales or rhonchi Abdomen: Normoactive X4. Abdomen soft. Somewhat difficult to examine due to her habitus but mostly nontender. Subtle tenderness in the epigastrium. No right upper quadrant tenderness. Negative Gregg sign. Extremities: + Adiposity without true pitting edema Neuro: A&O X4. Cranial nerves II through XII are grossly intact. No focal neuro deficits Skin: No obvious skin lesions or rashes Psych: Appropriate affect. Pleasant and cooperative Discharge Data Allergies Allergy/AdvReac Type Severity Reaction Status Date / Time fentanyl Allergy Intermediate HIGH BLOOD Verified 06/11/21 12:54 PRESSURE, SKIN FLUSHED Cephalosporins Allergy Mild RASH Verified 06/11/21 12:54 Penicillins Allergy Mild RASH Verified 06/11/21 12:54 Sulfa (Sulfonamide Allergy Mild CAN'T Verified 06/11/21 12:54 Antibiotics) REMEMBER aspartame Allergy Unknown Unknown Verified 06/11/21 12:54 bee venom protein (honey bee) Allergy Unknown CAN'T Verified 06/11/21 12:54 REMEMBER cephalexin Allergy Unknown Rash Verified 06/11/21 12:54 Iodinated Contrast Media Allergy Unknown PASS OUT, Verified 06/11/21 12:54 VOMITING ketorolac Allergy Unknown Unknown Verified 06/11/21 12:54 meperidine Allergy Unknown CAN'T Verified 06/11/21 12:54 REMEMBER stevioside [From Stevia] Allergy Unknown Unknown Verified 06/11/21 12:54 sucralose Allergy Unknown Unknown Verified 06/11/21 12:54 morphine AdvReac Intermediate Nausea Verified 06/11/21 12:54 codeine AdvReac Mild ALTERED Verified 06/11/21 12:54 MENTAL STATUS Consultations 07/12/21 16:55 ED Decision to Admit Stat Ordered Studies 07/12/21 12:36 CT abd pelvis wo con Stat IMPRESSION: 1. No acute cardiopulmonary findings. 2. Cardiomegaly. No evidence for pulmonary edema. 3. Hiatal hernia with partially intrathoracic stomach. CT head/brain wo con Stat IMPRESSION: No acute intracranial findings. No change in appearance of the brain. 07/12/21 17:30 CT angio chest PE protocol Urgent IMPRESSION: 1. No pulmonary emboli identified. 2. Bilateral lower lobe airspace opacities which favor atelectasis. An infectious process is within the differential although considered less likely. 3. Cardiomegaly and extensive coronary artery calcification. 4. Dilatation of the central pulmonary arteries which raises the possibility of pulmonary arterial hypertension. 5. Large hiatal hernia. Hospital Course (1) Nausea: 59-[id number]-year-old white female with a history of DM, Morbid Obesity, HTN, Depression and Seizure. Nausea was the reason patient summoned EMS services Had subjective chills without fevers. No diarrhea. No abdominal pain Does have dyspepsia. That may be the cause of her nausea given her associated large hiatal hernia Could have had a viral syndrome Denies early satiety. Does have underlying diabetes. May consider gastric emptying study if persistent problem (A1C with acceptable control at 7.5% Protonix increased to twice daily and patient encouraged to utilize an antireflux lifestylesee below as outlined. Can add Pepcid if needed Ultimately, weight loss encouraged (2) Hypoxia: Patient found to be coincidentally hypoxic when seen by EMS services (87% on room air) Has been requiring 2 L of supplemental oxygen to maintain a pulse ox in the low to mid 90s Patient denies shortness of breath or any respiratory symptoms which leads me to believe this is more of a chronic issue I highly suspect this is likely her baseline. She does have underlying MEGHAN and does not use a CPAP. Utilizes nocturnal oxygen Presume she has obesity hypoventilation syndrome. May also have a component of restrictive lung disease from her large hiatal hernia Echocardiogram obtained showing an EF of 65 to 70% without significant valvular disease. BNP was 108. Did receive 1 dose of IV Lasix but do not believe there to be a component of CHF Patient would likely need PFTs, sleep study, and perhaps right-sided cardiac catheterization which can all be done as an outpatient VBG with normal bicarb A two-step pulse oximetry was performed denoting need for supplemental oxygen at rest and with ambulation (2 L) At this point, I believe her hypoxemia to be a chronic and coincidental finding. She has not been short of breath. As outlined above, I believe she has a component of obesity hypoventilation syndrome and restrictive lung disease. There was a question of pneumonia upon presentation for which she was started on doxycycline. She does have some mild bibasilar infiltrates but I believe these to be more consistent with atelectasis rather than pneumonia; however, we will continue/complete a full course of doxycycline. She should utilize an incentive spirometer and continue supplemental oxygen chronically (2 L). Follow-up with PCP to schedule sleep study. I did call patient's PCP to update him on these findings. (3) Morbid obesity with BMI of 50.0-59.9, adult: Recommend weight loss and lifestyle/behavioral modification (4) T2DM (type 2 diabetes mellitus): Held metformin while in house Utilizedbasal/bolus insulin while in house Okay to resume metformin upon discharge. A1c obtained and showing acceptable control at 7.5% (5) Seizure: Pt with history of seizure disorder continue keppra (6) Elevated troponin: High-sensitivity troponin mildly elevated (14.8) without chest pain, or acute EKG changes Follow-up troponin 12.3 Echocardiogram without regional wall motion abnormalities (7) Hypertension: Continue metoprolol xl 25 mg , diltiazem 180 and atorvastatin for cardiovascular risk reduction and treatment of dyslipidemia (8) Depression: Continue effexor heparin for dvt prevention, full code At this point, patient is medically and hemodynamically stable for discharge to home. Her hypoxemia is unlikely an acute finding although she does require supplemental oxygen which has been arranged. Patient has been seen and agreed upon by Dr. Velarde. Patient to follow-up with her PCP within 7 to 10 days. Total Time Total Time Spent Total Time Spent (In Minutes): 45 minutes including time spent with the patient, calling her PCP and discussing this case with him, preparation of documentation and coordination of care Discharge Plan Discharge Items Patient Disposition: Home - Home Health Services Reason For Visit: HYPOXIA,LETHARGY,PNEUMONIA Discharge Diagnosis: 1. Nausea- resolved 2. Dyspepsia 3. Hypoxemia- suspect this is chronic (presumed obesity hypoventilation syndrome) 4. Large Hiatal Hernia- resulting is dyspepsia and likely restrictive lung disease Activity: Resume your previous activity Activity Comment: with supplemental O2 Non-emergency contact: Primary Care Provider Call non-emergency contact if: you have any medication questions and your symptoms worsen Follow-up/Referrals: Margarito Al [Primary Care Provider] - Diet: Carb Consistent or DM2 and Heart Healthy Addtl Attending Provider Instructions: You presented to the hospital due to nausea. Coincidentally, you were found to have a low oxygen level. Your nausea is likely related to increased acid production given the large hiatal hernia. Your Protonix has been increased to twice a day. Can utilize [id number] Pepcid as needed. Would advise behavioral changes such as " -Avoid large meals. Eat several small meals throughout the day. Avoid eating within 1 hour of going to bed. Do not lay flat after meals. -Avoid citrus, spicy foods. Avoid chocolate/peppermint/caffeine/alcohol -Weight loss encouraged Coincidentally, you were found to have a slightly low oxygen level requiring 2 L of supplemental oxygen continuously. There was question of pneumonia in your lung bases. With your lack of respiratory symptoms, fever, and a normal white blood cell countI suspect this is more atelectasis (lungs folding in on themselves) than pneumonia. This can result from the very large hiatal hernia causing limitations of your lungs to expand. Cannot rule out pneumonia. You were started on doxycycline and should continue a full course through completion. The low oxygen levels is likely a chronic and ongoing problem. As discussed, I believe you have what is called obesity hypoventilation syndrome. This is due to the weight on your chest causing decreased ability to fully inflate the lungs. Continue to use your incentive spirometer to help exercise your lungs. You should follow-up with your family doctor to discuss an overnight sleep study as you would likely benefit from a CPAP. In addition, your hiatal hernia is limiting the ability of your lungs to fully inflate as the stomach is occupying space in your chest cavity. Follow-up with your PCP within 7 to 10 days Return to the ED for any new or worsening symptoms Pending Studies at Discharge: No Stand-Alone Forms: My [facility] Medications and DC Order Prescriptions: New pantoprazole 40 mg Tablet,Delayed Release (Dr/Ec) 40 mg PO BID Qty: 60 RF: 0 doxycycline monohydrate 100 mg tablet 100 mg PO BID Qty: 9 RF: 0 Continued pregabalin 150 mg capsule 150 mg PO BID 30 Days Qty: 60 RF: 2 metformin 500 mg tablet 1,000 mg PO BIDM 90 Days Qty: 360 RF: 3 atorvastatin 20 mg tablet 20 mg PO HS Qty: 30 RF: 0 cetirizine 10 mg tablet 10 mg PO DAILY RF: 0 cyanocobalamin (vitamin B-12) 1,000 mcg capsule 1,000 mcg PO DAILY Qty: 30 RF: 0 diltiazem HCl 180 mg capsule,extended release 24hr 180 mg PO QAM RF: 0 docusate sodium 100 mg capsule 200 mg PO HS RF: 0 magnesium oxide 400 mg (241.3 mg magnesium) tablet 400 mg PO QAM RF: 0 venlafaxine 150 mg capsule,extended release 24hr 150 mg PO QAM RF: 0 nitroglycerin 0.4 mg tablet, sublingual 0.4 mg SL DIRECTED PRN (Reason: Chest Pain) RF: 0 insulin aspart U-100 [Novolog Flexpen U-100 Insulin] 100 unit/mL (3 mL) insulin pen See Rx Instructions .ROUTE .COMPLEX RF: 0 Lantus Solostar U-100 Insulin 100 unit/mL (3 mL) insulin pen 50 unit subcut HS RF: 0 polyethylene glycol 3350 [Miralax] 17 gram Powder In Packet 17 g PO QAM RF: 0 acetaminophen [Tylenol Extra Strength] 500 mg Tablet 500 mg PO Q6H PRN (Reason: Pain) RF: 0 aspirin [Aspirin Low Dose] 81 mg Tablet,Delayed Release (Dr/Ec) 81 mg PO QAM RF: 0 cholecalciferol (vitamin D3) [Vitamin D3] 50 mcg (2,000 unit) Capsule 2,000 unit PO QAM RF: 0 oxybutynin chloride 5 mg tablet 5 mg PO BID RF: 0 levetiracetam 500 mg tablet 500 mg PO BID RF: 0 metoprolol succinate 25 mg tablet extended release 24 hr 25 mg PO DAILY RF: 0 Discontinued pantoprazole 40 mg tablet,delayed release (DR/EC) 40 mg PO QAM RF: 0 Discharge Orders: Discharge Order (Routine); Ordered 07/14/21 Ordered By: Jennifer Pierce/Other Patient Handouts: Managing Type 2 Diabetes Admission Data Admit Date/Time: 07/12/21 17:37 Attending Provider: Juan Velarde Admit Provider: Arturo Yin Primary Care Provider: Margarito Al Other Providers: Lavelle Serrano Other Interventions: Discharge Summary Assessment (RN) Last Done: 07/14/21 13:02 Supervising Physician Co-Signing Physician Notes Patient seen and examined at bedside. During face to face encounter, obtained phsyical examination and discussed hospital course. I discussed discharge plan with AHSAN Olivia and Patient. I reviewed above note and agree with it. Patient was treated for nausea. Discharge instructions were given which included lifestyle modifications. Patient is agreeable to discharge. Coding Level of Care Code D/C DAY MANAGEMENT >30 MINS Diagnoses Nausea R11.0 Hypoxia R09.02 Morbid obesity with BMI of 50.0-59.9, adult E66.01; Z68.43 T2DM (type 2 diabetes mellitus) E11.9 Seizure R56.9 Elevated troponin R77.8 Hypertension I10 Depression F32.A
== END 2021-07-14 15:32 | disposition home health service (06) | DRG 391 ==
LOC: ED 12:07 → SUATTDRO 17:37 → 2S 17:37
DX: Z88.2 Allergy status to sulfonamides; E55.9 Vitamin D deficiency, unspecified; E11.42 Type 2 diabetes mellitus with diabetic polyneuropathy; Z20.822 Contact with and (suspected) exposure to COVID-19; E78.5 Hyperlipidemia, unspecified; F32.A Depression, unspecified; Z91.041 Radiographic dye allergy status; G40.909 Epilepsy, unspecified, not intractable, without status epilepticus; I10 Essential (primary) hypertension; Z91.02 Food additives allergy status; J98.11 Atelectasis; J18.9 Pneumonia, unspecified organism; E53.8 Deficiency of other specified B group vitamins; Z88.5 Allergy status to narcotic agent; Z68.43 Body mass index [BMI] 50.0-59.9, adult; Z91.030 Bee allergy status; Z79.4 Long term (current) use of insulin; Z82.49 Family history of ischemic heart disease and other diseases of the circulatory system; Z79.899 Other long term (current) drug therapy; Z87.01 Personal history of pneumonia (recurrent); Z79.82 Long term (current) use of aspirin; R79.89 Other specified abnormal findings of blood chemistry; Z88.0 Allergy status to penicillin; E66.2 Morbid (severe) obesity with alveolar hypoventilation; K44.9 Diaphragmatic hernia without obstruction or gangrene; J98.4 Other disorders of lung; I44.7 Left bundle-branch block, unspecified; J96.11 Chronic respiratory failure with hypoxia; Z88.6 Allergy status to analgesic agent; Z79.84 Long term (current) use of oral hypoglycemic drugs

== ENCOUNTER 2022-04-24 14:36 | Inpatient (IN) ==
--- NOTE | 2022-04-24 14:40 | Emergency Department Note ---
Impression & Plan Atrial fibrillation, Anemia, Chest pain, Acute dehydration ED Provider Note NAME: MARCO A BRAVO AGE: 76 SEX: F : 1945 ARRIVES VIA: Ambulance INFORMANT: Patient, ED PROVIDER(S): Da Krishnan MD CHIEF COMPLAINT: Chest pain MEDICAL DECISION MAKING: Patient presented due to concern for chest pain. Clinically the patient appears to be dry and I did review the patient's most recent echo. Patient was ordered initial 500 of IV fluids IV was established blood work was obtained along with an EKG troponin chest x-ray. EKG shows likely A-fib. The patient's blood work shows a normal white count anemia hemoglobin 10.9 relatively chronic and stable thrombocytosis of 41. Patient's kidney function unremarkable. Potassium 3.4 slightly low. COVID flu and RSV negative. Patient's troponin was not elevated but borderline at 13.5. I did review prior EKGs but did not note any obvious prior history of A-fib but the patient is on metoprolol as well as Cardizem. Given these concerns with the patient feeling unwell with associated chest pain I did speak with on-call medicine service Dr. Estrella and the patient was admitted to the medicine service. I did repeat an EKG which showed normal sinus rhythm. Prior /Outside records reviewed: Did review the patient's most recent echocardiogram from July 13, 2021 which showed that it was a limited study but LV systolic function was normal no regional wall motion abnormalities with mild concentric LVH and EF of 65 to 70% no significant change from comparison study August 2020. Differential diagnosis: Cardiac ischemia, aortic dissection, pulmonary embolism, pneumothorax, pneumonia, pericarditis, myocarditis, esophageal rupture, GERD, cholecystitis, pancreatitis, musculoskeletal, as well as other pathologies. Diagnostics, as interpreted by me: ECG: Likely A-fib, rate of 98 wide QRS, left lateral branch block pattern. Repeat EKG interpreted by m: Sinus with first-degree AV block, rate of 89, wide QRS left bundle branch block pattern. Cardiac monitoring: An order was placed for continuous cardiac monitoring. The monitor shows a rate of 95 with irregularly irregular rhythm. Patient was placed on pulse oximetry Medical decision rules: None Imaging studies: See below HPI: Patient presents due to concern for chest pain that began this morning. Brain torres is unsure as to the duration but felt centralized and sharp. Currently not present. The patient has complained of a mild nonproductive cough. Former history of smoking many many years ago. The patient does wear oxygen at nighttime. No leg swelling or calf pain no recent falls or trauma. The patient states that her symptoms initially began as she had gotten up to go use the bathroom had come back and have placed her self on some oxygen to help improve her symptoms. Patient denies any nausea vomiting or diarrhea. PAST MEDICAL HISTORY: See Below PAST SURGICAL HISTORY: See Below SOCIAL HISTORY: See Below HOME MEDICATIONS: See Below ALLERGIES: See Below VITALS: See Below PHYSICAL EXAMINATION: GENERAL: NAD, wearing a mask, non-toxic. EYE EXAM: Normal conjunctiva. PERRL, no anisocoria and EOM's grossly intact w/o pain. Oropharynx: Edentulous, dry mucous membranes. NECK: Supple, no nuchal rigidity, no adenopathy, non-tender. No signs of meningismus. FROM of the neck with good chin to chest and neck extension. No stridor. LUNGS: Clear to auscultation. Normal chest wall mechanics. HEART: Irregularly irregular and tachycardic, no MRG. ABDOMEN: Abdomen soft, non-tender, normo-active bowel sounds, no masses, no rebound or guarding. BACK: No CVA TTP. SKIN: No rashes and no bruising. UPPER EXTREMITIES: Upper extremities are grossly normal. LOWER EXTREMITIES: Grossly normal, no edema. No calf pain or erythema. NEURO EXAM: A&O x3, cranial nerves II-XII grossly intact, normal speech, moves all 4 extremities. Past Med/Surg History Medical History HANNAH (acute kidney injury) Ambulatory dysfunction Anemia Anesthesia in both legs Atrial fibrillation Brain aneurysm Diabetes mellitus type 2 with neurological manifestations Diabetic peripheral neuropathy DVT prophylaxis Dyslipidemia Epilepsy Essential tremor Fall Hypertension Hypokalemia Hyponatremia Hypoxia Hypoxic Loss of memory Nausea Obesity Peripheral neuropathy Pseudomonas urinary tract infection Renal mass Sensory ataxia T2DM (type 2 diabetes mellitus) Tremor Vitamin B12 deficiency Vitamin D deficiency Surgical History Hx of cerebral aneurysm repair S/P adenoidectomy S/P cholecystectomy S/P hysterectomy S/P tonsillectomy S/P umbilical hernia repair, follow-up exam Status post tubal ligation Family History Mother Cancer Father Coronary heart disease Social History Smoking Status: Never smoker Hx Alcohol Use: Yes Alcohol type: wine Hx Substance Use: No Preferred Language: Turkish Communication Ability: Effective Cover Cutter Machine Required: No Beliefs That Will Affect Care: None marital status: / Current Living Situation: Residential Current Living Situation Comment: independent apartment at [facility] Feels Safe at Home: Yes Assistive Devices: Oxygen - Continuous and Walker Allergies Allergies Allergy/AdvReac Type Severity Reaction Status Date / Time Iodinated Contrast Media Allergy Severe PASS OUT, Verified 04/24/22 16:31 VOMITING cephalexin Allergy Intermediate Rash Verified 04/24/22 16:31 fentanyl Allergy Intermediate HIGH BLOOD Verified 04/24/22 16:31 PRESSURE, SKIN FLUSHED Cephalosporins Allergy Mild RASH Verified 04/24/22 16:31 Penicillins Allergy Mild RASH Verified 04/24/22 16:31 Sulfa (Sulfonamide Allergy Mild CAN'T Verified 04/24/22 16:31 Antibiotics) REMEMBER aspartame Allergy Unknown Unknown Verified 04/24/22 16:31 bee venom protein (honey bee) Allergy Unknown CAN'T Verified 04/24/22 16:31 REMEMBER ketorolac Allergy Unknown Unknown Verified 04/24/22 16:31 meperidine Allergy Unknown CAN'T Verified 04/24/22 16:31 REMEMBER stevioside [From Stevia] Allergy Unknown Unknown Verified 04/24/22 16:31 sucralose Allergy Unknown Unknown Verified 04/24/22 16:31 codeine AdvReac Severe ALTERED Verified 04/24/22 16:31 MENTAL STATUS morphine AdvReac Intermediate Nausea Verified 04/24/22 16:31 Home Meds Home Medications Medication Instructions Recorded Confirmed atorvastatin 20 mg tablet 20 mg PO HS #30 tabs 02/09/19 04/24/22 cetirizine 10 mg tablet 10 mg PO DAILY 02/09/19 04/24/22 cyanocobalamin (vitamin B-12) 1,000 mcg PO DAILY #30 caps 02/09/19 04/24/22 1,000 mcg capsule diltiazem HCl 180 mg 180 mg PO QAM 02/09/19 04/24/22 capsule,extended release 24 hr docusate sodium 100 mg capsule 200 mg PO HS 02/09/19 04/24/22 magnesium oxide 400 mg (241.3 mg 400 mg PO QAM 02/09/19 04/24/22 magnesium) tablet nitroglycerin 0.4 mg sublingual 0.4 mg sublingual DIRECTED PRN 02/09/19 04/24/22 tablet Chest Pain venlafaxine 150 mg 150 mg PO QAM 02/09/19 04/24/22 capsule,extended release 24 hr polyethylene glycol 3350 17 gram 17 g PO QAM 03/01/19 04/24/22 oral powder packet (Miralax) aspirin 81 mg tablet,delayed 81 mg PO QAM 11/14/19 04/24/22 release (Tia Low Dose Aspirin) cholecalciferol (vitamin D3) 50 2,000 unit PO QAM 11/14/19 04/24/22 mcg (2,000 unit) capsule (Vitamin D3) levetiracetam 500 mg tablet 500 mg PO BID 02/24/20 04/24/22 metoprolol succinate 25 mg 25 mg PO DAILY 03/01/21 04/24/22 tablet,extended release 24 hr insulin aspart U-100 100 unit/mL See Rx Instructions .Route .COMPLEX 06/11/21 04/24/22 (3 mL) subcutaneous pen (Novolog FlexPen U-100 Insulin aspart) insulin glargine 100 unit/mL (3 60 unit subcut HS 06/11/21 04/24/22 mL) subcutaneous pen (Lantus Solostar U-100 Insulin) epinephrine 0.3 mg/0.3 mL 0.3 mg IM UD PRN Allergic Reaction 04/24/22 04/24/22 injection, auto-injector nystatin 100,000 unit/gram topical 1 applic topical BID 04/24/22 04/24/22 cream Previous Rx's Medication Instructions Recorded pregabalin 150 mg capsule 150 mg PO BID 30 days #60 caps 12/04/19 metformin 500 mg tablet 1,000 mg PO BIDM 90 days #360 tabs 11/08/20 pantoprazole 40 mg tablet,delayed 40 mg PO BID #60 tabs 07/14/21 release famotidine 20 mg tablet 20 mg PO BID #60 tabs 04/26/22 levofloxacin 500 mg tablet 500 mg PO DAILY 5 days #5 tabs 04/26/22 Results & Data (ED) Vital Signs Vital Signs - 24 hr 04/24/22 14:49 Pulse Rate 106 H Home Medications Current Medication List: was personally reviewed by me Laboratory Data Attestation: I reviewed the patient's lab results. 04/26/22 06:24 04/26/22 06:24 Lab Results 04/24/22 04/24/22 04/24/22 Range/Units 14:45 14:45 14:45 WBC 9.01 (4.8-10.8) K/ul RBC 5.05 (4.20-5.40) M/uL Hgb 10.9 L (12.0-16.0) g/dl Hct 36.2 L (37.0-47.0) % MCV 71.7 L (80.0-100.0) fL MCH 21.6 L (25.0-34.0) pg MCHC 30.1 L (32.0-36.0) g/dL RDW Std Deviation 50.4 H (36.4-46.3) fL RDW Coeff of Nic 20.0 H (11.5-14.5) % Plt Count 481 H (130-400) K/uL MPV 10.1 (9.4-12.4) fL Immature Gran % (Auto) 0.3 % Neut % (Auto) 62.2 % Lymph % (Auto) 24.9 % Iron % (Auto) 9.2 % Eos % (Auto) 2.3 % Baso % (Auto) 1.1 % Neut # (Auto) 5.60 (1.40-6.50) K/uL Lymph # (Auto) 2.24 (1.2-3.4) K/uL Iron # (Auto) 0.83 H (0.11-0.59) K/uL Eos # (Auto) 0.21 (0-0.50) K/uL Baso # (Auto) 0.10 (0-0.2) K/uL Immature Gran # (Auto) 0.03 (0.01-0.20) K/uL PT 10.9 (9.0-12.0) Seconds INR 1.0 (0.9-1.1) APTT 24.4 (21.0-31.0) Seconds PTT Ratio 0.9 Sodium TNP Potassium TNP Chloride 103 (98-107) mmol/L Carbon Dioxide 28 (21-32) mmol/L Anion Gap TNP BUN 7 (6-23) mg/dl Creatinine 0.63 (0.6-1.2) mg/dl Est Cr Clr Drug Dosing 90.3 ml/min Est GFR ( Amer) 101.7 ml/min Est GFR (Non-Af Amer) 87.7 ml/min BUN/Creatinine Ratio 11.1 (10-20) Glucose 157 H (70-99(Fasting)) mg/dl Calcium 9.2 (8.5-10.1) mg/dl Total Bilirubin 0.5 (0.2-1.0) mg/dl AST TNP ALT 12 (7-52) U/L Alkaline Phosphatase 98 (34-104) U/L Troponin I High Sens 13.5 (0-14) pg/ml Total Protein 7.5 (6.0-8.3) gm/dl Albumin 3.8 (3.4-5.0) gm/dl Globulin 3.7 (2.5-4.0) gm/dl Albumin/Globulin Ratio 1.0 (0.9-2) Lipase 10 L (11-82) U/L SARS-CoV-2 (PCR) (Negative) Influenza Type A (PCR) (Neg) Influenza Type B (PCR) (Neg) RSV (RT-PCR) (Neg) 04/24/22 04/24/22 Range/Units 16:38 16:40 WBC (4.8-10.8) K/ul RBC (4.20-5.40) M/uL Hgb (12.0-16.0) g/dl Hct (37.0-47.0) % MCV (80.0-100.0) fL MCH (25.0-34.0) pg MCHC (32.0-36.0) g/dL RDW Std Deviation (36.4-46.3) fL RDW Coeff of Nic (11.5-14.5) % Plt Count (130-400) K/uL MPV (9.4-12.4) fL Immature Gran % (Auto) % Neut % (Auto) % Lymph % (Auto) % Iron % (Auto) % Eos % (Auto) % Baso % (Auto) % Neut # (Auto) (1.40-6.50) K/uL Lymph # (Auto) (1.2-3.4) K/uL Iron # (Auto) (0.11-0.59) K/uL Eos # (Auto) (0-0.50) K/uL Baso # (Auto) (0-0.2) K/uL Immature Gran # (Auto) (0.01-0.20) K/uL PT (9.0-12.0) Seconds INR (0.9-1.1) APTT (21.0-31.0) Seconds PTT Ratio Sodium 142 Potassium 3.4 L Chloride (98-107) mmol/L Carbon Dioxide (21-32) mmol/L Anion Gap BUN (6-23) mg/dl Creatinine (0.6-1.2) mg/dl Est Cr Clr Drug Dosing ml/min Est GFR ( Amer) ml/min Est GFR (Non-Af Amer) ml/min BUN/Creatinine Ratio (10-20) Glucose (70-99(Fasting)) mg/dl Calcium (8.5-10.1) mg/dl Total Bilirubin (0.2-1.0) mg/dl AST 17 ALT (7-52) U/L Alkaline Phosphatase (34-104) U/L Troponin I High Sens (0-14) pg/ml Total Protein (6.0-8.3) gm/dl Albumin (3.4-5.0) gm/dl Globulin (2.5-4.0) gm/dl Albumin/Globulin Ratio (0.9-2) Lipase (11-82) U/L SARS-CoV-2 (PCR) NEGATIVE (Negative) Influenza Type A (PCR) Negative (Neg) Influenza Type B (PCR) Negative (Neg) RSV (RT-PCR) Negative (Neg) Administered Medications Discontinued Medications Aspirin (Aspirin 81 Mg Ectab) 81 mg PO [facility] Stop: 05/25/22 08:59 Last Admin: 04/26/22 08:31 Dose: 81 mg Documented By: Admin: 04/25/22 08:02 Dose: 81 mg Documented By: QUITA Atorvastatin Calcium (Atorvastatin 20 Mg Tab) 20 mg PO [facility] Stop: 05/24/22 21:14 Last Admin: 04/25/22 21:22 Dose: 20 mg Documented By: Admin: 04/24/22 22:14 Dose: 20 mg Documented By: THI Cetirizine HCl (Cetirizine Hcl 10 Mg Tablet) 10 mg PO DAILY EVELIO Stop: 05/25/22 08:59 Last Admin: 04/26/22 08:31 Dose: 10 mg Documented By: Admin: 04/25/22 08:02 Dose: 10 mg Documented By: TIANNA Cyanocobalamin (Cyanocobalamin (B-12) 500 Mcg Tablet) 1,000 mcg PO DAILY EVELIO Stop: 05/25/22 08:59 Last Admin: 04/26/22 08:31 Dose: 1,000 mcg Documented By: Admin: 04/25/22 08:27 Dose: 1,000 mcg Documented By: TIANNA Diltiazem HCl (Diltiazem Hcl 180 Mg Capcr) 180 mg PO QAM EVELIO Stop: 05/25/22 08:59 Last Admin: 04/26/22 08:32 Dose: 180 mg Documented By: Admin: 04/25/22 08:03 Dose: 180 mg Documented By: TIANNA Docusate Sodium (Docusate Sodium 100 Mg Cap) 200 mg PO HS EVELIO Stop: 05/24/22 21:14 Last Admin: 04/25/22 21:21 Dose: 200 mg Documented By: Admin: 04/24/22 22:14 Dose: 200 mg Documented By: THI Enoxaparin Sodium (Enoxaparin Inj 40 Mg/0.4 Ml Syr) 40 mg SQ Q12H EVELIO Stop: 05/24/22 21:14 Last Admin: 04/26/22 08:33 Dose: 40 mg Documented By: Admin: 04/25/22 21:20 Dose: 40 mg Documented By: Admin: 04/25/22 08:01 Dose: 40 mg Documented By: Admin: 04/24/22 22:14 Dose: 40 mg Documented By: THI Sodium Chloride (Nss) 500 mls @ 999 mls/hr IV .Q31M STA Stop: 04/24/22 15:25 Last Infusion: 04/24/22 16:27 Dose: 0 mls/hr Documented By: ADULT EDUCATION INSTRUCTOR Admin: 04/24/22 15:40 Dose: 999 mls/hr Documented By: ADULT EDUCATION INSTRUCTOR Sodium Chloride (Nss 1000ml) 500 mls @ 999 mls/hr IV .Q31M ONE Stop: 04/24/22 17:25 Last Infusion: 04/24/22 18:02 Dose: 0 mls/hr Documented By: ADULT EDUCATION INSTRUCTOR Admin: 04/24/22 17:26 Dose: 999 mls/hr Documented By: BLANCA Famotidine 20 mg/ Syringe 5 mls @ 2.5 mls/min IV BID EVELIO Stop: 05/24/22 21:14 Last Admin: 04/26/22 08:40 Dose: 2.5 mls/min Documented By: Admin: 04/25/22 21:20 Dose: 2.5 mls/min Documented By: Admin: 04/25/22 11:54 Dose: 2.5 mls/min Documented By: Admin: 04/24/22 22:15 Dose: 2.5 mls/min Documented By: THI Vancomycin HCl 1,000 mg/ (Sodium Chloride) 270 mls @ 200 mls/hr IV Q12H EVELIO; Protocol Stop: 05/05/22 09:59 Last Infusion: 04/25/22 10:04 Dose: 0 mls/hr Documented By: Admin: 04/25/22 08:33 Dose: 200 mls/hr Documented By: TIANNA Vancomycin HCl 2,250 mg/ (Sodium Chloride) 545 mls @ 200 mls/hr IV 2200 ONE; Protocol Stop: 04/25/22 00:43 Last Infusion: 04/25/22 01:05 Dose: 0 mls/hr Documented By: Admin: 04/24/22 22:16 Dose: 200 mls/hr Documented By: THI Magnesium Sulfate/Dextrose (Magnesium Sulfate / D5w) 1 gm in 100 mls @ 50 mls/hr IV Q2H EVELIO Stop: 04/25/22 13:29 Last Infusion: 04/25/22 16:34 Dose: 0 mls/hr Documented By: [facility] Admin: 04/25/22 13:32 Dose: 50 mls/hr Documented By: Infusion: 04/25/22 13:32 Dose: 50 mls/hr Documented By: [facility] Admin: 04/25/22 11:57 Dose: 50 mls/hr Documented By: TIANNA Iron Sucrose 300 mg/ Sodium (Chloride) 265 mls @ 176.667 mls/hr IV DAILY EVELIO Stop: 04/27/22 10:29 Last Infusion: 04/26/22 10:29 Dose: 0 mls/hr Documented By: Admin: 04/26/22 08:39 Dose: 176.7 mls/hr Documented By: Infusion: 04/25/22 14:08 Dose: 0 mls/hr Documented By: Admin: 04/25/22 12:02 Dose: 176.7 mls/hr Documented By: TIANNA Ciprofloxacin (Cipro / D5w) 400 mg in 200 mls @ 100 mls/hr IV Q12H EVELIO; Protocol Stop: 05/05/22 09:14 Last Admin: 04/25/22 09:52 Dose: Not Given Documented By: TIANNA Vancomycin HCl 1,500 mg/ (Sodium Chloride) 530 mls @ 200 mls/hr IV Q24H EVELIO; Protocol Stop: 05/06/22 05:59 Last Infusion: 04/26/22 08:49 Dose: 0 mls/hr Documented By: Admin: 04/26/22 06:10 Dose: 200 mls/hr Documented By: THI Insulin Aspart (Insulin Aspart Per Unit) 0 units SC ACHS EVELIO Stop: 05/24/22 21:14 Last Admin: 04/26/22 12:06 Dose: 3 units Documented By: STEVEN Co-signed By: FELIZ Admin: 04/26/22 08:50 Dose: 1 units Documented By: STEVEN Co-signed By: CARL Admin: 04/25/22 21:00 Dose: Not Given Documented By: Admin: 04/25/22 18:05 Dose: 3 units Documented By: TIANNA Co-signed By: DEXTER Admin: 04/25/22 13:28 Dose: 5 units Documented By: TIANNA Co-signed By: JACOB Admin: 04/25/22 08:25 Dose: 3 units Documented By: TIANNA Co-signed By: DENY Admin: 04/24/22 22:14 Dose: 2 units Documented By: THI Co-signed By: JACEY Insulin Glargine (Lantus Per Unit Charge) 50 units SQ HS EVELIO Stop: 05/24/22 21:14 Last Admin: 04/25/22 21:15 Dose: 50 units Documented By: THI Co-signed By: JACEY Admin: 04/24/22 22:44 Dose: 50 units Documented By: THI Co-signed By: JACEY Levetiracetam (Levetiracetam 500 Mg Tab) 500 mg PO BID EVELIO Stop: 05/24/22 21:14 Last Admin: 04/26/22 08:32 Dose: 500 mg Documented By: Admin: 04/25/22 21:21 Dose: 500 mg Documented By: Admin: 04/25/22 08:02 Dose: 500 mg Documented By: Admin: 04/24/22 22:14 Dose: 500 mg Documented By: THI Magnesium Oxide (Magnesium Oxide 400 Mg Tab) 400 mg PO QAM EVELIO Stop: 05/25/22 08:59 Last Admin: 04/26/22 08:32 Dose: 400 mg Documented By: Admin: 04/25/22 08:03 Dose: 400 mg Documented By: TIANNA Metoprolol Succinate (Metoprolol Succ 25mg Ext Rel Tab) 25 mg PO DAILY EVELIO Stop: 05/25/22 08:59 Last Admin: 04/26/22 08:32 Dose: 25 mg Documented By: Admin: 04/25/22 08:03 Dose: 25 mg Documented By: TIANNA Pantoprazole Sodium (Pantoprazole 40 Mg Tab) 40 mg PO BID EVELIO Stop: 05/24/22 21:14 Last Admin: 04/26/22 08:31 Dose: 40 mg Documented By: Admin: 04/25/22 21:22 Dose: 40 mg Documented By: Admin: 04/25/22 08:01 Dose: 40 mg Documented By: Admin: 04/24/22 22:14 Dose: 40 mg Documented By: THI Polyethylene Glycol (Polyethylene (Miralax) 17 Gm Pack) 17 gm PO QAM EVELIO Stop: 05/25/22 08:59 Last Admin: 04/26/22 08:32 Dose: 17 gm Documented By: Admin: 04/25/22 08:02 Dose: 17 gm Documented By: TIANNA Potassium Chloride (Potassium Chloride Crtab 20 Meq Tabcr) 20 meq PO NOW STA Stop: 04/24/22 19:22 Last Admin: 04/24/22 19:50 Dose: 20 meq Documented By: NORA Potassium Chloride (Potassium Chloride Crtab 20 Meq Tabcr) 40 meq PO NOW STA Stop: 04/26/22 09:46 Last Admin: 04/26/22 10:35 Dose: 40 meq Documented By: STEVEN Pregabalin (Pregabalin 150 Mg Cap) 150 mg PO BID [facility] Stop: 05/24/22 21:14 Last Admin: 04/26/22 08:39 Dose: 150 mg Documented By: AMQuita Admin: 04/25/22 21:31 Dose: 150 mg Documented By: Admin: 04/25/22 08:31 Dose: 150 mg Documented By: Admin: 04/24/22 22:13 Dose: 150 mg Documented By: THI Venlafaxine HCl (Venlafaxine Hcl Xr 150 Mg Capxr) 150 mg PO QAM [facility] Stop: 05/25/22 08:59 Last Admin: 04/26/22 08:31 Dose: 150 mg Documented By: Admin: 04/25/22 08:03 Dose: 150 mg Documented By: TIANNA Vitamin D (Cholecalciferol 1,000 Units 25 Mcg Tab) 2,000 units PO QAM [facility] Stop: 05/25/22 08:59 Last Admin: 04/26/22 08:31 Dose: 2,000 units Documented By: AMQuita Admin: 04/25/22 08:02 Dose: 2,000 units Documented By: [facility] Imaging Data Radiologist's Impression: Chest X-Ray 04/24/22 14:55 XR chest 1V portable HISTORY: 76 years-old Female Chest pain, nonspecific COMPARISON: 03/10/2022 TECHNIQUE: AP view of the chest FINDINGS: Cardiac silhouette is enlarged. Atherosclerosis of the aorta. No pneumothorax. Mild subsegmental bibasilar atelectasis. Large hiatal hernia. Degenerative changes of the shoulders and spine. IMPRESSION: 1. Cardiomegaly without acute process. 2. Large hiatal hernia. ACT 112: Negative or not required by law. The above report was generated using voice recognition software. It may contain grammatical, syntax or spelling errors. Electronically signed by: Jeremiah Guadarrama M.D. 04/24/2022 3:17 PM Discharge Plan Visit Data Chief Complaint: Chest Pain ED Provider: Da Krishnan Discharge Problem: Atrial fibrillation, Anemia, Chest pain, Acute dehydration Patient Disposition: Admitted As Inpatient Condition: Good Discharge Instructions Interventions: ED Discharge Assessment Last Done: 04/24/22 20:25
[2022-04-24] MEDS ORDERED: SODIUM CHLORIDE 0.9% 500 ML IV STA (14:55)
--- NOTE | 2022-04-24 15:19 | XRay Report ---
XR chest 1V portable HISTORY: 76 years-old Female Chest pain, nonspecific COMPARISON: 03/10/2022 TECHNIQUE: AP view of the chest FINDINGS: Cardiac silhouette is enlarged. Atherosclerosis of the aorta. No pneumothorax. Mild subsegmental biba silar atelectasis. Large hiatal hernia. Degenerative changes of the shoulders and spine. IMPRESSION: 1. Cardiomegaly without acute process. 2. Large hiatal hernia. ACT 112: Negative or not required by law. The above report was generated using voice recognition software. It may contain grammatical, syntax o r spelling errors. Electronically signed by: Jeremiah Guadarrama M.D. 04/24/2022 3:17 PM
--- NOTE | 2022-04-24 15:25 | Electrocardiogram Report ---
Test Reason : Blood Pressure : / mmHG Vent. Rate : 098 BPM Atrial Rate : 078 BPM P-R Int : 200 ms QRS Dur : 128 ms QT Int : 380 ms P-R-T Axes : 053 -15 118 degrees QTc Int : 485 ms Probable Atrial fibrillation Left bundle branch block Abnormal ECG When compared with ECG of 04-AUG-2021 17:12, Atrial fibrillation now present Confirmed by Christofer Naranjo ([id number]) on 04/24/2022 3:25:32 PM Referred By: Confirmed By:Christofer Naranjo
[2022-04-24 15:32] LABS: Basophils % (auto) 1.1 %; Eosinophils # (auto) 0.21 K/uL (0-0.50); Eosinophils % (auto) 2.3 %; Hematocrit (blood only) 36.2 % (37.0-47.0); Hemoglobin 10.9 g/dl (12.0-16.0); Immature Granulocytes # (auto) 0.03 K/uL (0.01-0.20); Immature Granulocytes % (auto) 0.3 %; Lymphocytes # (auto) 2.24 K/uL (1.2-3.4); Lymphocytes % (auto) 24.9 %; Mean Corpuscular Hemoglobin 21.6 pg (25.0-34.0); Mean Corpuscular Hgb Conc 30.1 g/dL (32.0-36.0); Mean Corpuscular Volume 71.7 fL (80.0-100.0); Mean Platelet Volume 10.1 fL (9.4-12.4); Monocytes # (auto) 0.83 K/uL (0.11-0.59); Monocytes % (auto) 9.2 %; Neutrophils % (auto) 62.2 %; Platelet Count 481 K/uL (130-400); RDW Standard Deviation 50.4 fL (36.4-46.3); Red Blood Count 5.05 M/uL (4.20-5.40); White Blood Count 9.01 K/ul (4.8-10.8)
[2022-04-24 15:47] LABS: Partial Thromboplastin Ratio 0.9; Partial Thromboplastin Time 24.4 Seconds (21.0-31.0); Prothrombin Time 10.9 Seconds (9.0-12.0)
[2022-04-24 16:05] LABS: Alanine Aminotransferase 12 U/L (7-52); Albumin Level 3.8 gm/dl (3.4-5.0); Alkaline Phosphatase 98 U/L (34-104); BUN Creatinine Ratio 11.1 (10-20); Bilirubin,Total 0.5 mg/dl (0.2-1.0); Blood Urea Nitrogen 7 mg/dl (6-23); Calcium 9.2 mg/dl (8.5-10.1); Carbon Dioxide 28 mmol/L (21-32); Chloride 103 mmol/L (98-107); Creatinine Clr Calc Pharmacy 90.3 ml/min; Est GFR (African American) 101.7 ml/min; Est GFR (Non-African American) 87.7 ml/min; Globulin 3.7 gm/dl (2.5-4.0); Glucose 157 mg/dl (70-99(Fasting)); Lipase 10 U/L (11-82); Total Protein 7.5 gm/dl (6.0-8.3); Troponin I High Sensitivity 13.5 pg/ml (0-14)
[2022-04-24] MEDS ORDERED: SODIUM CHLORIDE 0.9% 1000ML 500 ML IV ONE (16:55)
--- NOTE | 2022-04-24 17:10 | History & Physical Report ---
Date of Service April 24, 2022 Assessment & Plan (1) Chest pain: Plan: Somewhat atypical with substernal chest heaviness that did come on with exertion and was relieved with rest and oxygen in part, but then resolved on its own after that Initial troponin negative. Chest pain lasted a total of about 30 minutes. Nonradiating. ECG here with chronic LBBB and likely ectopy and not atrial fibrillation Chest x-ray with large hiatal hernia but otherwise normal-pain could be from hiatal hernia -Admit to telemetry unit -Check serial troponin -Add IV Pepcid onto her Protonix twice daily -If related to hiatal hernia, may benefit from thoracic surgery consultation as an outpatient but this would be a pretty extensive operation to correct -Clear liquids diet only for now (2) Urinary tract infection: Plan: Recently diagnosed with a group B beta Streptococcus UTI-urine culture results obtained from [employer] system collected on 04/13/2022 She has been taking Macrobid without improvement She thinks that the way she is feeling poorly is due to worsening urinary tract infection -Discontinue Macrobid -Start vancomycin -Repeat urinalysis and urine culture here -Check CT abdomen/pelvis given left sided mid abdominal pain and tenderness to palpation and symptoms of UTI -Hold home oxybutynin (3) Anemia: Plan: Microcytic and stable from previous at 10 With likely reactive thrombocytosis Check iron studies in the morning and replace as needed She does have a large hiatal hernia and could have Richard ulcers She denies any melena or hematochezia (4) Hypertension: Plan: Blood pressures are normal Continue home diltiazem, metoprolol (5) Depression: Plan: No acute issues Continue home venlafaxine (6) T2DM (type 2 diabetes mellitus): Plan: Typically well controlled Continue Lantus but reduce dose to 50 units daily given reduced appetite Continue NovoLog sliding scale Check hemoglobin A1c in the morning Hold home metformin (7) Vitamin D deficiency: Plan: Continue home supplement (8) Vitamin B12 deficiency: Plan: Continue home B12 supplement MCV is microcytic, do not suspect ongoing B12 deficiency (9) Dyslipidemia: Plan: Continue atorvastatin (10) Diabetic peripheral neuropathy: Plan: No acute issues Continue home pregabalin (11) Epilepsy: Plan: No seizures in 6 years Continue home Keppra Check Keppra level in the morning (12) Obesity: Plan: BMI 47.3 Needs weight loss Plan DVT prophylaxis-Lovenox SQ, SCDs Disposition-admit to PCU DNR/DNI Called her daughter is a primary contact at patient's request and left a voicemail as she did not answer. History of Present Illness Chief Complaint: Chest pain Primary Care Provider: Margarito Al This patient is a 76-year-old female with history of DM2 with neuropathy, HTN, seizure disorder, anemia, obesity, restrictive lung disease and chronic respiratory hypoxic failure on 2 LNC at bedtime, essential tremor, vitamin B12 and vitamin D deficiencies, ambulatory dysfunction, GERD, constipation, hyperlipidemia, LBBB, depression, who presents to the ER with substernal chest pain with exertion. She reports she ate breakfast this morning and then just started feeling poorly but is vague in how she feels. No nausea or fevers or chills, no cold symptoms. No diarrhea. She went to the bathroom when she walked back started having substernal chest heaviness that was nonradiating. She sat down and put her oxygen on and the chest heaviness persisted so she called EMS. It went away on its own by the time she got to the ER without any intervention. She also reports some occasional sharp pains in the left mid abdomen that started today. She reports overall feeling poorly since being diagnosed with a UTI last week. She was initially on ciprofloxacin which she reports did not help her feel better and then was put on nitrofurantoin 4 days ago. She still feels like her urinary tract infection has not cleared. Denies back pain. In the ER, she was initially thought to possibly have atrial fibrillation on her EKG but I do believe it is sinus with ectopy. Her initial troponin was negative. Her vitals were fairly normal except she had some hypoxia to the mid 80s and was placed on oxygen. She has a chronic microcytic anemia and thrombocytosis, chemistry was unrevealing except for mild hypokalemia, LFTs and lipase normal. Chest x-ray showed large hiatal hernia but otherwise clear. Hospitalist was consulted for admission due to chest pain, possible atrial fibrillation. Allergies Allergy/AdvReac Type Severity Reaction Status Date / Time Iodinated Contrast Media Allergy Severe PASS OUT, Verified 04/24/22 16:31 VOMITING cephalexin Allergy Intermediate Rash Verified 04/24/22 16:31 fentanyl Allergy Intermediate HIGH BLOOD Verified 04/24/22 16:31 PRESSURE, SKIN FLUSHED Cephalosporins Allergy Mild RASH Verified 04/24/22 16:31 Penicillins Allergy Mild RASH Verified 04/24/22 16:31 Sulfa (Sulfonamide Allergy Mild CAN'T Verified 04/24/22 16:31 Antibiotics) REMEMBER aspartame Allergy Unknown Unknown Verified 04/24/22 16:31 bee venom protein (honey bee) Allergy Unknown CAN'T Verified 04/24/22 16:31 REMEMBER ketorolac Allergy Unknown Unknown Verified 04/24/22 16:31 meperidine Allergy Unknown CAN'T Verified 04/24/22 16:31 REMEMBER stevioside [From Stevia] Allergy Unknown Unknown Verified 04/24/22 16:31 sucralose Allergy Unknown Unknown Verified 04/24/22 16:31 codeine AdvReac Severe ALTERED Verified 04/24/22 16:31 MENTAL STATUS morphine AdvReac Intermediate Nausea Verified 04/24/22 16:31 Home Medications Medication Instructions Recorded Confirmed Type atorvastatin 20 mg tablet 20 mg PO HS #30 tabs 02/09/19 04/24/22 History cetirizine 10 mg tablet 10 mg PO DAILY 02/09/19 04/24/22 History cyanocobalamin (vitamin B-12) 1,000 mcg PO DAILY #30 caps 02/09/19 04/24/22 History 1,000 mcg capsule diltiazem HCl 180 mg 180 mg PO QAM 02/09/19 04/24/22 History capsule,extended release 24 hr docusate sodium 100 mg capsule 200 mg PO HS 02/09/19 04/24/22 History magnesium oxide 400 mg (241.3 mg 400 mg PO QAM 02/09/19 04/24/22 History magnesium) tablet nitroglycerin 0.4 mg sublingual 0.4 mg sublingual DIRECTED PRN 02/09/19 04/24/22 History tablet Chest Pain venlafaxine 150 mg 150 mg PO QAM 02/09/19 04/24/22 History capsule,extended release 24 hr polyethylene glycol 3350 17 gram 17 g PO QAM 03/01/19 04/24/22 History oral powder packet (Miralax) aspirin 81 mg tablet,delayed 81 mg PO QAM 11/14/19 04/24/22 History release (Tia Low Dose Aspirin) cholecalciferol (vitamin D3) 50 2,000 unit PO QAM 11/14/19 04/24/22 History mcg (2,000 unit) capsule (Vitamin D3) oxybutynin chloride 5 mg tablet 5 mg PO BID 11/14/19 04/24/22 History pregabalin 150 mg capsule 150 mg PO BID 30 days #60 caps 12/04/19 04/24/22 Rx levetiracetam 500 mg tablet 500 mg PO BID 02/24/20 04/24/22 History metformin 500 mg tablet 1,000 mg PO BIDM 90 days #360 tabs 11/08/20 04/24/22 Rx metoprolol succinate 25 mg 25 mg PO DAILY 03/01/21 04/24/22 History tablet,extended release 24 hr insulin aspart U-100 100 unit/mL See Rx Instructions .Route .COMPLEX 06/11/21 04/24/22 History (3 mL) subcutaneous pen (Novolog FlexPen U-100 Insulin aspart) insulin glargine 100 unit/mL (3 60 unit subcut HS 06/11/21 04/24/22 History mL) subcutaneous pen (Lantus Solostar U-100 Insulin) pantoprazole 40 mg tablet,delayed 40 mg PO BID #60 tabs 07/14/21 04/24/22 Rx release epinephrine 0.3 mg/0.3 mL 0.3 mg IM UD PRN Allergic Reaction 04/24/22 04/24/22 History injection, auto-injector nitrofurantoin 100 mg PO AMHS 04/24/22 04/24/22 History monohydrate/macrocrystals 100 mg capsule nystatin 100,000 unit/gram topical 1 applic topical BID 04/24/22 04/24/22 History cream Past Med/Surg History Medical History HANNAH (acute kidney injury) Ambulatory dysfunction Anemia Anesthesia in both legs Atrial fibrillation Brain aneurysm Diabetes mellitus type 2 with neurological manifestations Diabetic peripheral neuropathy DVT prophylaxis Dyslipidemia Epilepsy Essential tremor Fall Hypertension Hypokalemia Hyponatremia Hypoxia Hypoxic Loss of memory Nausea Obesity Peripheral neuropathy Pseudomonas urinary tract infection Sensory ataxia T2DM (type 2 diabetes mellitus) Tremor Vitamin B12 deficiency Vitamin D deficiency Surgical History Hx of cerebral aneurysm repair S/P adenoidectomy S/P cholecystectomy S/P hysterectomy S/P tonsillectomy S/P umbilical hernia repair, follow-up exam Status post tubal ligation Family History Mother Cancer Father Coronary heart disease Social History Smoking Status: Never smoker Hx Alcohol Use: No Hx Substance Use: No Preferred Language: Slovak Communication Ability: 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: No Beliefs That Will Affect Care: None marital status: / Current Living Situation: Snf Current Living Situation Comment: Lisa Feels Safe at Home: Yes Assistive Devices: Oxygen - at Night, Scooter/Electric Scooter and Walker Review of Systems Review of Systems: All systems reviewed & are unremarkable except as noted in HPI & below Physical Exam Constitutional: WD/WN, vitals as above Eyes: PERRL, conjunctivae normal, anicteric sclerae ENMT: external ear and nose normal, oropharynx normal (Edentulous) Neck: trachea midline, no thyromegaly Respiratory: normal respiratory effort, lungs clear to auscultation Cardiovascular: Rate/Rhythm: regular rate and regular rhythm Heart Sounds: no murmur Vessels: dorsalis pedis pulses present Extremities: + edema (Trace ankle edema bilaterally) Chest (Breasts): Chest: normal inspection of chest Gastrointestinal (Abdomen): Inspection/Auscultation: abdomen normal to inspection and normal bowel sounds; abdomen not distended Percussion/Palpation: + abdomen tender (In the left mid abdomen without guarding or rebound) and abdomen soft; no guarding Musculoskeletal: Extremities: extremities normal to inspection; no cyanosis and no clubbing Skin: no rashes, warm and dry Neurologic: moves all extremities and awake; no focal motor deficits Psychiatric: A+Ox3, euthymic affect Lymphatic: no lymphedema Results & Data Results & Data ([facility]) Vital Signs (Past 12 Hours) Vital Signs Temp Pulse Pulse Resp BP BP Pulse Ox 04/24/22 16:42 101 H 20 168/106 H 95 04/24/22 16:30 98 H 20 96 04/24/22 16:20 74 19 95 04/24/22 16:10 82 18 96 04/24/22 16:00 97 H 18 95 04/24/22 15:50 102 H 17 96 04/24/22 15:42 105 H 17 96 04/24/22 15:42 160/106 H 04/24/22 15:40 107 H 19 96 04/24/22 15:30 109 H 23 92 04/24/22 15:20 112 H 22 89 L 04/24/22 15:10 125 H 15 89 L 04/24/22 15:00 103 H 24 94 04/24/22 14:50 108 H 21 90 04/24/22 14:47 112 H 16 91 04/24/22 15:35 84 L 04/24/22 15:41 104 H 13 95 04/24/22 15:41 98 H 17 160/106 H 96 04/24/22 14:42 04/24/22 14:42 36.6 C 95 H 14 173/91 H 92 04/24/22 14:49 106 H O2 Del Method O2 Flow Rate 04/24/22 16:42 Room Air 04/24/22 16:30 04/24/22 16:20 04/24/22 16:10 04/24/22 16:00 04/24/22 15:50 04/24/22 15:42 04/24/22 15:42 04/24/22 15:40 04/24/22 15:30 04/24/22 15:20 04/24/22 15:10 04/24/22 15:00 04/24/22 14:50 04/24/22 14:47 04/24/22 15:35 Room Air 0 04/24/22 15:41 Nasal Cannula 2 04/24/22 15:41 Nasal Cannula 2 04/24/22 14:42 Room Air 04/24/22 14:42 Room Air 04/24/22 14:49 Laboratory Results 04/24/22 04/24/22 04/24/22 Range/Units 16:40 16:38 14:45 WBC (4.8-10.8) K/ul RBC (4.20-5.40) M/uL Hgb (12.0-16.0) g/dl Hct (37.0-47.0) % MCV (80.0-100.0) fL MCH (25.0-34.0) pg MCHC (32.0-36.0) g/dL RDW Std Deviation (36.4-46.3) fL RDW Coeff of Nic (11.5-14.5) % Plt Count (130-400) K/uL MPV (9.4-12.4) fL Immature Gran % (Auto) % Neut % (Auto) % Lymph % (Auto) % Sully % (Auto) % Eos % (Auto) % Baso % (Auto) % Neut # (Auto) (1.40-6.50) K/uL Lymph # (Auto) (1.2-3.4) K/uL Sully # (Auto) (0.11-0.59) K/uL Eos # (Auto) (0-0.50) K/uL Baso # (Auto) (0-0.2) K/uL Immature Gran # (Auto) (0.01-0.20) K/uL PT (9.0-12.0) Seconds INR (0.9-1.1) APTT (21.0-31.0) Seconds PTT Ratio Sodium Pending TNP Potassium Pending TNP Chloride 103 (98-107) mmol/L Carbon Dioxide 28 (21-32) mmol/L Anion Gap TNP BUN 7 (6-23) mg/dl Creatinine 0.63 (0.6-1.2) mg/dl Est Cr Clr Drug Dosing 90.3 ml/min Est GFR ( Amer) 101.7 ml/min Est GFR (Non-Af Amer) 87.7 ml/min BUN/Creatinine Ratio 11.1 (10-20) Glucose 157 H (70-99(Fasting)) mg/dl Calcium 9.2 (8.5-10.1) mg/dl Total Bilirubin 0.5 (0.2-1.0) mg/dl AST Pending TNP ALT 12 (7-52) U/L Alkaline Phosphatase 98 (34-104) U/L Troponin I High Sens 13.5 (0-14) pg/ml Total Protein 7.5 (6.0-8.3) gm/dl Albumin 3.8 (3.4-5.0) gm/dl Globulin 3.7 (2.5-4.0) gm/dl Albumin/Globulin Ratio 1.0 (0.9-2) Lipase 10 L (11-82) U/L SARS-CoV-2 (PCR) Pending Influenza Type A (PCR) Pending Influenza Type B (PCR) Pending RSV (RT-PCR) Pending 04/24/22 04/24/22 Range/Units 14:45 14:45 WBC 9.01 (4.8-10.8) K/ul RBC 5.05 (4.20-5.40) M/uL Hgb 10.9 L (12.0-16.0) g/dl Hct 36.2 L (37.0-47.0) % MCV 71.7 L (80.0-100.0) fL MCH 21.6 L (25.0-34.0) pg MCHC 30.1 L (32.0-36.0) g/dL RDW Std Deviation 50.4 H (36.4-46.3) fL RDW Coeff of Nic 20.0 H (11.5-14.5) % Plt Count 481 H (130-400) K/uL MPV 10.1 (9.4-12.4) fL Immature Gran % (Auto) 0.3 % Neut % (Auto) 62.2 % Lymph % (Auto) 24.9 % Sully % (Auto) 9.2 % Eos % (Auto) 2.3 % Baso % (Auto) 1.1 % Neut # (Auto) 5.60 (1.40-6.50) K/uL Lymph # (Auto) 2.24 (1.2-3.4) K/uL Sully # (Auto) 0.83 H (0.11-0.59) K/uL Eos # (Auto) 0.21 (0-0.50) K/uL Baso # (Auto) 0.10 (0-0.2) K/uL Immature Gran # (Auto) 0.03 (0.01-0.20) K/uL PT 10.9 (9.0-12.0) Seconds INR 1.0 (0.9-1.1) APTT 24.4 (21.0-31.0) Seconds PTT Ratio 0.9 Sodium Potassium Chloride (98-107) mmol/L Carbon Dioxide (21-32) mmol/L Anion Gap BUN (6-23) mg/dl Creatinine (0.6-1.2) mg/dl Est Cr Clr Drug Dosing ml/min Est GFR ( Amer) ml/min Est GFR (Non-Af Amer) ml/min BUN/Creatinine Ratio (10-20) Glucose (70-99(Fasting)) mg/dl Calcium (8.5-10.1) mg/dl Total Bilirubin (0.2-1.0) mg/dl AST ALT (7-52) U/L Alkaline Phosphatase (34-104) U/L Troponin I High Sens (0-14) pg/ml Total Protein (6.0-8.3) gm/dl Albumin (3.4-5.0) gm/dl Globulin (2.5-4.0) gm/dl Albumin/Globulin Ratio (0.9-2) Lipase (11-82) U/L SARS-CoV-2 (PCR) Influenza Type A (PCR) Influenza Type B (PCR) RSV (RT-PCR) CBC, coags, CMP, troponin, lipase, all reviewed [id number] pending Diagnostic Findings Chest x-ray: Chest X-Ray 04/24/22 14:55 XR chest 1V portable HISTORY: 76 years-old Female Chest pain, nonspecific COMPARISON: 03/10/2022 TECHNIQUE: AP view of the chest FINDINGS: Cardiac silhouette is enlarged. Atherosclerosis of the aorta. No pneumothorax. M ild subsegmental bibasilar atelectasis. Large hiatal hernia. Degenerative changes of the shoulders and spine. IMPRESSION: 1. Cardiomegaly without acute process. 2. Large hiatal hernia. ACT 112: Negative or not required by law. The above report was generated using voice recognition software. It may contain grammatical, syntax or spelling errors. Electronically signed by: Jeremiah Guadarrama M.D. 04/24/2022 3:17 PM ECG Additional Comments: ECG on 04/24/2022 at 1442 with probable atrial fibrillation, LBBB, rate 98 Code Status & VTE Plan Code Status DNR/DNI VTE Prophylaxis Plan VTE Prophylaxis will be ordered: Yes PG Care Time/CCT Total # of Minutes Spent Total Time Spent with Patient: Total time spent is greater than 50% in coordination of care (as documented) at patient's floor/unit and/or counseling patient: Coding Level of Care Code 79945 INT INP/OBS CARE 75MIN Diagnoses Chest pain R07.9 Chest pain type: unspecified Urinary tract infection N39.0 Anemia D64.9 Hypertension I10 Depression F32.A T2DM (type 2 diabetes mellitus) E11.9 Vitamin D deficiency E55.9 Vitamin B12 deficiency E53.8 Dyslipidemia E78.5 Diabetic peripheral neuropathy E11.42 Epilepsy G40.909 Obesity E66.9 (1) Chest pain Chest pain type: unspecified Qualified Code(s): R07.9 - Chest pain, unspecified
[2022-04-24 17:26] LABS: Potassium 3.4 mmol/L (3.5-5.1)
[2022-04-24 17:38] LABS: Influenza A virus by PCR Negative (Neg); Influenza B virus by PCR Negative (Neg); RSV by PCR Negative (Neg); SARS CoV2 RNA(COVID-19) Ceph NEGATIVE (Negative)
[2022-04-24] MEDS ORDERED: POTASSIUM CHLORIDE CRTAB 20 MEQ TABCR PO STA (19:21)
--- NOTE | 2022-04-24 19:47 | CT Scan Report ---
ABDOMEN AND PELVIS CT WITHOUT CONTRAST CT DOSE: 1604.85 mGy.cm HISTORY: Acute mid abdominal pain mid abdominal pain TECHNIQUE: Multiaxial CT images of the abdomen and pelvis were performed without contrast. A dose lo wering technique was utilized adhering to the principles of ALARA. COMPARISON STUDY: 07/12/2021 CT abdomen pelvis FINDINGS: Limited exam secondary to patient body habitus. Cardiomegaly with extensive coronary artery calcifications. No pneumatosis or pneumoperitoneum. The unenhanced spleen, moderately atrophic pancr eas and adrenal glands are unremarkable. Cholecystectomy. Hepatic steatosis. Mild nonspecific bilateral perinephric stranding. 3 mm calcification of the inferior pole right kidne y on image 2:30 of the axial series. No ureteral calculi or hydronephrosis. Unchanged 1.3 cm intermed iate density lesion of the inferior pole right kidney. 2.0 cm soft tissue attenuating lesion of the i nferior pole left kidney previously measured approximately 1.5 cm. Several additional hypodense and i ntermediate density small lesions of the kidneys appears stable. Mild bladder wall thickening with pa rtial distention. Hysterectomy. Atherosclerosis of the aorta and branch vessels. No lymphadenopathy. Large hiatal hernia with circumferential wall thickening of the stomach again noted. No bowel obstruc tion or bowel wall thickening. Colonic diverticulosis. Mild to moderate colonic fecal retention. The appendix is not definitively seen. Small fat filled umbilical hernia. Degenerative changes of the spi ne, pelvis and hips. Moderate T11 compression deformity with 3 mm retropulsion is unchanged. IMPRESSION: 1. No acute intra-abdominal or intrapelvic abnormality. 2. Colonic diverticulosis. 3. 2 cm indeterminate lesion of the inferior pole left kidney has mildly increased in size from the study. Correlation with a nonemergent follow-up MRI of the abdomen recommended to exclude a small renal cell carcinoma. 4. Large hiatal hernia. 5. Right nephrolithiasis. ACT 112: Negative or not required by law. The above report was generated using voice recognition software. It may contain grammatical, syntax o r spelling errors. Electronically signed by: Jeremiah Guadarrama M.D. 04/24/2022 7:45 PM
[2022-04-24 21:12] LABS: Epithelial Cell Urine Auto 0-5 /lpf (0-5)
[2022-04-24 21:13] LABS: Appearance Urine Clear (Clear); Bilirubin Urine Negative (Negative); Blood Urine Trace-intact (Negative); Color Urine Yellow; Glucose Urine UA Negative (Negative); Ketones Urine Negative (Negative); Protein Urine 2+ (Negative); Urobilinogen Urine Negative (Negative)
[2022-04-24 21:14] LABS: Bacteria Urine Automated 3+ (Negative); Leukocyte Esterase Urine Negative (Negative); Nitrite Urine Negative (Negative)
[2022-04-24] MEDS ORDERED: ONDANSETRON INJ 2 MG/ML 2 ML VIAL IV PRN (21:15)
[2022-04-24] MEDS ORDERED: GLUCOSE 40% GEL 15 GM TUBE PO PRN (21:15)
[2022-04-24] MEDS ORDERED: GLUCAGON FOR INJ 1 MG VIAL SQ PRN (21:15)
[2022-04-24] MEDS ORDERED: ACETAMINOPHEN 325 MG TAB PO PRN (21:15)
[2022-04-24] MEDS ORDERED: GLUCOSE 10 TAB/TUBE PO PRN (21:15)
[2022-04-24] MEDS ORDERED: DEXTROSE 50% 50 ML SYRINGE IV PRN (21:15)
[2022-04-24] MEDS ORDERED: NITROGLYCERIN SL 0.4 MG/TAB TAB SL PRN (21:15)
[2022-04-24] MEDS ORDERED: VANCOMYCIN CONSULT ACTIVE PRN (21:15)
[2022-04-24] MEDS ORDERED: CARBOHYDRATES FOR HYPOGLYCEMIA PO PRN (21:15)
[2022-04-24] MEDS ORDERED: VANCOMYCIN HCL 2,250 MG in SODIUM CHLORIDE 0.9% 500 ML IV ONE (22:00)
[2022-04-24] MEDS: PREGABALIN 150 MG CAP PO SCH (22:13)
[2022-04-24] MEDS: DOCUSATE SODIUM 100 MG CAP PO SCH (22:14)
[2022-04-24] MEDS: ATORVASTATIN 20 MG TAB PO SCH (22:14)
[2022-04-24] MEDS: levETIRAcetam 500 MG TAB PO SCH (22:14)
[2022-04-24] MEDS: PANTOprazole 40 MG TAB PO SCH (22:14)
[2022-04-24] MEDS: INSULIN ASPART PER UNIT SC SCH (22:14)
[2022-04-24] MEDS: ENOXAPARIN INJ 40 MG/0.4 ML SYR SQ SCH (22:14)
[2022-04-24] MEDS: FAMOTIDINE 20 MG in SYRINGE 3 ML IV SCH (22:15)
[2022-04-24] MEDS: LANTUS PER UNIT CHARGE SQ SCH (22:44)
[2022-04-25 06:06] LABS: BUN Creatinine Ratio 14.5 (10-20); Calcium 8.5 mg/dl (8.5-10.1); Creatinine Clr Calc Pharmacy 80.3 ml/min; Est GFR (African American) 98.7 ml/min; Est GFR (Non-African American) 85.2 ml/min; Magnesium 1.5 mg/dl (1.7-2.4); Potassium 3.5 mmol/L (3.5-5.1)
[2022-04-25 06:08] LABS: Basophils # (auto) 0.06 K/uL (0-0.2); Basophils % (auto) 0.7 %; Eosinophils # (auto) 0.28 K/uL (0-0.50); Eosinophils % (auto) 3.3 %; Hematocrit (blood only) 30.9 % (37.0-47.0); Hemoglobin 9.3 g/dl (12.0-16.0); Immature Granulocytes # (auto) 0.04 K/uL (0.01-0.20); Immature Granulocytes % (auto) 0.5 %; Lymphocytes # (auto) 1.57 K/uL (1.2-3.4); Lymphocytes % (auto) 18.6 %; Mean Corpuscular Hemoglobin 22.1 pg (25.0-34.0); Mean Corpuscular Hgb Conc 30.1 g/dL (32.0-36.0); Mean Corpuscular Volume 73.4 fL (80.0-100.0); Mean Platelet Volume 9.7 fL (9.4-12.4); Monocytes # (auto) 0.84 K/uL (0.11-0.59); Monocytes % (auto) 9.9 %; Neutrophils # (auto) 5.66 K/uL (1.40-6.50); Platelet Count 371 K/uL (130-400); RDW Coefficient of Variation 19.9 % (11.5-14.5); RDW Standard Deviation 51.8 fL (36.4-46.3); Red Blood Count 4.21 M/uL (4.20-5.40); White Blood Count 8.45 K/ul (4.8-10.8)
[2022-04-25 06:25] LABS: Ferritin 7.1 ng/ml (8-388)
--- NOTE | 2022-04-25 07:44 | Electrocardiogram Report ---
Test Reason : Blood Pressure : / mmHG Vent. Rate : 068 BPM Atrial Rate : 068 BPM P-R Int : 242 ms QRS Dur : 130 ms QT Int : 484 ms P-R-T Axes : 086 -06 061 degrees QTc Int : 514 ms Sinus rhythm with 1st degree A-V block Left bundle branch block Abnormal ECG When compared with ECG of 24-APR-2022 17:36, No significant change Confirmed by Zhou Jackson ([id number]) on 04/25/2022 7:43:45 AM Referred By: REFERRED SELF Confirmed By:Zhou Jackson
--- NOTE | 2022-04-25 07:57 | Electrocardiogram Report ---
Test Reason : Blood Pressure : / mmHG Vent. Rate : 089 BPM Atrial Rate : 089 BPM P-R Int : 222 ms QRS Dur : 138 ms QT Int : 426 ms P-R-T Axes : 037 -23 107 degrees QTc Int : 518 ms Sinus rhythm with sinus arrhythmia with 1st degree A-V block Left bundle branch block Abnormal ECG When compared with ECG of 24-APR-2022 14:42, Sinus rhythm has replaced Atrial fibrillation Confirmed by Zhou Jackson ([id number]) on 04/25/2022 7:56:34 AM Referred By: REFERRED SELF Confirmed By:Zhou Jackson
[2022-04-25] MEDS: ENOXAPARIN INJ 40 MG/0.4 ML SYR SQ SCH ×2 (08:01→21:20)
[2022-04-25] MEDS: PANTOprazole 40 MG TAB PO SCH ×2 (08:01→21:22)
[2022-04-25] MEDS: CHOLECALCIFEROL 1,000 UNITS 25 MCG TAB PO SCH (08:02)
[2022-04-25] MEDS: levETIRAcetam 500 MG TAB PO SCH ×2 (08:02→21:21)
[2022-04-25] MEDS: POLYETHYLENE (MIRALAX) 17 GM PACK PO SCH (08:02)
[2022-04-25] MEDS: CETIRIZINE HCL 10 MG TABLET PO SCH (08:02)
[2022-04-25] MEDS: ASPIRIN 81 MG ECTAB PO SCH (08:02)
[2022-04-25] MEDS: METOPROLOL SUCC 25MG EXT REL TAB PO SCH (08:03)
[2022-04-25] MEDS: MAGNESIUM OXIDE 400 MG TAB PO SCH (08:03)
[2022-04-25] MEDS: dilTIAZem HCL 180 MG CAPCR PO SCH (08:03)
[2022-04-25] MEDS: VENLAFAXINE HCL XR 150 MG CAPXR PO SCH (08:03)
[2022-04-25] MEDS: INSULIN ASPART PER UNIT SC SCH ×4 (08:25→21:00)
[2022-04-25] MEDS: CYANOCOBALAMIN (B-12) 500 MCG TABLET PO SCH (08:27)
[2022-04-25] MEDS: PREGABALIN 150 MG CAP PO SCH ×2 (08:31→21:31)
[2022-04-25] MEDS ORDERED: CIPROFLOXACIN / D5W 400 MG/200 ML BAG IV SCH (09:15)
[2022-04-25] MEDS ORDERED: VANCOMYCIN HCL 1,000 MG in SODIUM CHLORIDE 0.9% 250 ML IV SCH (10:00)
--- NOTE | 2022-04-25 10:03 | Pharmacy Report ---
Pharmacy PK ABX Note - Date of Service April 25, 2022 - Assessment and Plan Assessment 76 year old F receiving vancomycin for treatment of UTI. Urine culture (from outside facility) growing Group B Beta strep per report. Urine culture from our facility pending. Renal function stable. Day # 2 of antimicrobial therapy. Plan Vancomycin * Loading dose: 2250 mg IV x 1 * Maintenance dose: 1500 mg IV every 24 hours * Regimen is predicted to achieve target AUC/ALEXEI of 400-600 mg/L.hr * Will obtain a level around steady state Pharmacy will continue to follow and will adjust dose/frequency as necessary. Thank you. Pharmacy has transitioned to AUC monitoring for vancomycin. AUC/ALEXEI is the preferred PK/PD target and is associated with decreased risk of nephrotoxicity compared to traditional trough targets.
[2022-04-25 10:05] LABS: Estimated Average Glucose 166 mg/dl; Hemoglobin A1C 7.4 % (4.5-5.6)
[2022-04-25] MEDS: FAMOTIDINE 20 MG in SYRINGE 3 ML IV SCH ×2 (11:54→21:20)
[2022-04-25] MEDS: MAGNESIUM SULFATE / D5W 1 GM/100 ML BAG IV SCH ×2 (11:57→13:32)
[2022-04-25] MEDS: IRON SUCROSE 300 MG in SODIUM CHLORIDE 0.9% 250 ML IV SCH (12:02)
--- NOTE | 2022-04-25 12:36 | Hospitalist Progress Note ---
Date of Service April 25, 2022 Assessment & Plan (1) Chest pain: Plan: Somewhat atypical with substernal chest heaviness that did come on with exertion and was relieved with rest and oxygen in part, but then resolved on its own after that Chest pain lasted a total of about 30 minutes. Nonradiating. ECG here with chronic LBBB and likely ectopy and not atrial fibrillation Chest x-ray with large hiatal hernia but otherwise normal-pain could be from hiatal hernia Serial troponin negative. Pain is now completely resolved after starting IV Pepcid Lower/mid abdominal pain is also resolved after having a bowel movement -Continued stay on telemetry unit -Continue IV Pepcid in addition to her Protonix twice daily -If related to hiatal hernia, may benefit from thoracic surgery consultation as an outpatient but this would be a pretty extensive operation to correct -Advance diet to regular (2) Urinary tract infection: Plan: Recently diagnosed with a group B beta Streptococcus UTI-urine culture results obtained from [facility] system collected on 04/13/2022 She has been taking Macrobid without improvement She thinks that the way she is feeling poorly is due to worsening urinary tract infection Lower/mid abdominal pain resolved after having a bowel movement Feels her urine cloudiness is improving CT abdomen/pelvis checked for mid abdominal pain and symptoms of UTI-does show mild nonspecific bilateral perinephric stranding, large hiatal hernia, right- sided nephrolithiasis, and a 2 cm indeterminate lesion of the inferior pole of the left kidney mildly increased in size since 07/12/2021-correlation with nonemergent follow-up MRI of the abdomen recommended to exclude a small renal cell carcinoma No leukocytosis or fevers. -Discontinued Macrobid on admission -Continue vancomycin to cover for group B Streptococcus -Repeat urinalysis is abnormal and again shows signs of infection-urine culture here with pinpoint growth -Follow urine culture and add additional antibiotics if needed -Hold home oxybutynin (3) Anemia: Plan: Microcytic and stable from previous at 10 With likely reactive thrombocytosis Iron studies show severe iron deficiency with transferrin saturation of 10% and ferritin quite low at 7 She does have a large hiatal hernia and could have Richard ulcers She denies any melena or hematochezia Begin Venofer 300 mg IV once daily x3 doses if remains in the hospital Follow-up with GI as an outpatient for EGD and colonoscopy (4) Hypertension: Plan: Blood pressures are normal to elevated Continue home diltiazem, metoprolol (5) Depression: Plan: No acute issues Continue home venlafaxine (6) T2DM (type 2 diabetes mellitus): Plan: Typically well controlled Continue Lantus at reduced dose of 50 units daily given reduced appetite which is now improving Continue NovoLog sliding scale hemoglobin A1c well controlled at 7.4% Hold home metformin (7) Vitamin D deficiency: Plan: Continue home supplement (8) Vitamin B12 deficiency: Plan: Continue home B12 supplement MCV is microcytic, do not suspect ongoing B12 deficiency (9) Dyslipidemia: Plan: Continue atorvastatin (10) Diabetic peripheral neuropathy: Plan: No acute issues Continue home pregabalin (11) Epilepsy: Plan: No seizures in 6 years Continue home Keppra Check Keppra level in the morning-pending (12) Obesity: Plan: BMI 47.3 Needs weight loss (13) Renal mass: Plan: As above, indeterminate 2 cm left renal mass Needs outpatient MRI of the kidney and follow-up with urology (14) Hernia, hiatal: Plan: Large, as above Plan DVT prophylaxis-Lovenox SQ, SCDs Disposition-improving, continued stay on PCU. Await PT/OT evaluations but likely discharged home tomorrow if urine culture resulted DNR/DNI Admission and Anticipated Discharge Date Admission Date: April 24, 2022 Subjective Patient reports feeling much better today. No further chest pains. Her abdominal pain resolved after she moved her bowels last evening. Feels that the cloudiness to her urine is clearing up but she still feels like she has some urinary symptoms. Telemetry with sinus rhythm and first-degree AV block, IVCD, rates in the 60s to 90s, PVCs Physical Exam Constitutional: WD/WN, vitals as above Neck: trachea midline, no thyromegaly Respiratory: normal respiratory effort, lungs clear to auscultation Cardiovascular: Rate/Rhythm: regular rate and regular rhythm Heart Sounds: no murmur Extremities: + edema (Trace ankle edema bilaterally) Chest (Breasts): Chest: normal inspection of chest Gastrointestinal (Abdomen): Inspection/Auscultation: abdomen normal to inspection and normal bowel sounds; abdomen not distended Percussion/Palpation: abdomen soft; no guarding Musculoskeletal: Extremities: extremities normal to inspection; no cyanosis and no clubbing Skin: no rashes, warm and dry Neurologic: moves all extremities and awake; no focal motor deficits Psychiatric: A+Ox3, euthymic affect Lymphatic: no lymphedema Results & Data Results & Data ([facility]) Vital Signs (Past 12 Hours) Vital Signs Temp Pulse Pulse Resp BP Pulse Ox O2 Del Method 04/25/22 12:12 36.6 C 82 16 144/86 H 93 Room Air 04/25/22 08:00 63 04/25/22 08:08 36.8 C 77 18 165/80 H 94 Room Air 04/25/22 02:45 36.6 C 63 17 148/76 H 95 Nasal Cannula O2 Flow Rate 04/25/22 12:12 04/25/22 08:00 04/25/22 08:08 04/25/22 02:45 2 Laboratory Results CBC, BMP, magnesium level, iron studies, and serial troponin as well as urinalysis all reviewed Hemoglobin A1c reviewed PG Care Time/CCT Total # of Minutes Spent Total Time Spent with Patient: Total time spent is greater than 50% in coordination of care (as documented) at patient's floor/unit and/or counseling patient: Coding Level of Care Code 10925 SUB INP/OBS CARE 3/50MIN Diagnoses Chest pain R07.9 Chest pain type: unspecified Urinary tract infection N39.0 Anemia D64.9 Hypertension I10 Depression F32.A T2DM (type 2 diabetes mellitus) E11.9 Vitamin D deficiency E55.9 Vitamin B12 deficiency E53.8 Dyslipidemia E78.5 Diabetic peripheral neuropathy E11.42 Epilepsy G40.909 Obesity E66.9 Renal mass N28.89 Hernia, hiatal K44.9 (1) Chest pain Chest pain type: unspecified Qualified Code(s): R07.9 - Chest pain, unspecified
[2022-04-25] MEDS: LANTUS PER UNIT CHARGE SQ SCH (21:15)
[2022-04-25] MEDS: DOCUSATE SODIUM 100 MG CAP PO SCH (21:21)
[2022-04-25] MEDS: ATORVASTATIN 20 MG TAB PO SCH (21:22)
[2022-04-26] MEDS ORDERED: VANCOMYCIN HCL 1,500 MG in SODIUM CHLORIDE 0.9% 500 ML IV SCH (06:00)
[2022-04-26 06:43] LABS: Basophils # (auto) 0.06 K/uL (0-0.2); Basophils % (auto) 0.8 %; Eosinophils # (auto) 0.34 K/uL (0-0.50); Eosinophils % (auto) 4.7 %; Hematocrit (blood only) 30.4 % (37.0-47.0); Hemoglobin 9.2 g/dl (12.0-16.0); Immature Granulocytes # (auto) 0.03 K/uL (0.01-0.20); Immature Granulocytes % (auto) 0.4 %; Lymphocytes # (auto) 1.37 K/uL (1.2-3.4); Lymphocytes % (auto) 19.1 %; Mean Corpuscular Hemoglobin 21.8 pg (25.0-34.0); Mean Corpuscular Hgb Conc 30.3 g/dL (32.0-36.0); Mean Platelet Volume 9.5 fL (9.4-12.4); Monocytes # (auto) 0.82 K/uL (0.11-0.59); Monocytes % (auto) 11.4 %; Neutrophils # (auto) 4.55 K/uL (1.40-6.50); Neutrophils % (auto) 63.6 %; Platelet Count 343 K/uL (130-400); RDW Coefficient of Variation 20.2 % (11.5-14.5); RDW Standard Deviation 51.7 fL (36.4-46.3); Red Blood Count 4.22 M/uL (4.20-5.40); White Blood Count 7.17 K/ul (4.8-10.8)
[2022-04-26 07:06] LABS: BUN Creatinine Ratio 9.8 (10-20); Calcium 8.7 mg/dl (8.5-10.1); Est GFR (African American) 102.8 ml/min; Est GFR (Non-African American) 88.7 ml/min; Potassium 3.2 mmol/L (3.5-5.1)
[2022-04-26 07:32] LABS: Anisocytosis Present
[2022-04-26] MEDS: CHOLECALCIFEROL 1,000 UNITS 25 MCG TAB PO SCH (08:31)
[2022-04-26] MEDS: PANTOprazole 40 MG TAB PO SCH (08:31)
[2022-04-26] MEDS: CYANOCOBALAMIN (B-12) 500 MCG TABLET PO SCH (08:31)
[2022-04-26] MEDS: VENLAFAXINE HCL XR 150 MG CAPXR PO SCH (08:31)
[2022-04-26] MEDS: ASPIRIN 81 MG ECTAB PO SCH (08:31)
[2022-04-26] MEDS: CETIRIZINE HCL 10 MG TABLET PO SCH (08:31)
[2022-04-26] MEDS: METOPROLOL SUCC 25MG EXT REL TAB PO SCH (08:32)
[2022-04-26] MEDS: levETIRAcetam 500 MG TAB PO SCH (08:32)
[2022-04-26] MEDS: POLYETHYLENE (MIRALAX) 17 GM PACK PO SCH (08:32)
[2022-04-26] MEDS: dilTIAZem HCL 180 MG CAPCR PO SCH (08:32)
[2022-04-26] MEDS: MAGNESIUM OXIDE 400 MG TAB PO SCH (08:32)
[2022-04-26] MEDS: ENOXAPARIN INJ 40 MG/0.4 ML SYR SQ SCH (08:33)
[2022-04-26] MEDS: PREGABALIN 150 MG CAP PO SCH (08:39)
[2022-04-26] MEDS: IRON SUCROSE 300 MG in SODIUM CHLORIDE 0.9% 250 ML IV SCH (08:39)
[2022-04-26] MEDS: FAMOTIDINE 20 MG in SYRINGE 3 ML IV SCH (08:40)
[2022-04-26] MEDS: INSULIN ASPART PER UNIT SC SCH ×2 (08:50→12:06)
[2022-04-26] MEDS ORDERED: POTASSIUM CHLORIDE CRTAB 20 MEQ TABCR PO STA (09:45)
--- NOTE | 2022-04-26 11:49 | Discharge Summary ---
Date of Service April 26, 2022 Admission HPI Per Admitting Provider This patient is a 76-year-old female with history of DM2 with neuropathy, HTN, seizure disorder, anemia, obesity, restrictive lung disease and chronic respiratory hypoxic failure on 2 LNC at bedtime, essential tremor, vitamin B12 and vitamin D deficiencies, ambulatory dysfunction, GERD, constipation, hyperlipidemia, LBBB, depression, who presents to the ER with substernal chest pain with exertion. She reports she ate breakfast this morning and then just started feeling poorly but is vague in how she feels. No nausea or fevers or chills, no cold symptoms. No diarrhea. She went to the bathroom when she walked back started having substernal chest heaviness that was nonradiating. She sat down and put her oxygen on and the chest heaviness persisted so she called EMS. It went away on its own by the time she got to the ER without any intervention. She also reports some occasional sharp pains in the left mid abdomen that started today. She reports overall feeling poorly since being diagnosed with a UTI last week. She was initially on ciprofloxacin which she reports did not help her feel better and then was put on nitrofurantoin 4 days ago. She still feels like her urinary tract infection has not cleared. Denies back pain. In the ER, she was initially thought to possibly have atrial fibrillation on her EKG but I do believe it is sinus with ectopy. Her initial troponin was negative. Her vitals were fairly normal except she had some hypoxia to the mid 80s and was placed on oxygen. She has a chronic microcytic anemia and thrombocytosis, chemistry was unrevealing except for mild hypokalemia, LFTs and lipase normal. Chest x-ray showed large hiatal hernia but otherwise clear. Hospitalist was consulted for admission due to chest pain, possible atrial fibrillation. Principal Diagnosis Chest pain from hiatal hernia Abdominal pain from UTI Iron deficiency anemia Discharge Exam Constitutional WD/WN, vitals as above ENMT external ear and nose normal, oropharynx normal (Edentulous) Neck trachea midline, no thyromegaly Respiratory normal respiratory effort, lungs clear to auscultation Cardiovascular Rate/Rhythm: regular rate and regular rhythm Heart Sounds: no murmur Extremities: + edema (Trace ankle edema bilaterally) Chest (Breasts) Chest: normal inspection of chest Gastrointestinal (Abdomen) Inspection/Auscultation: abdomen normal to inspection and normal bowel sounds; abdomen not distended Percussion/Palpation: abdomen soft; no guarding Musculoskeletal Extremities: extremities normal to inspection; no cyanosis and no clubbing Skin no rashes, warm and dry Neurologic moves all extremities and awake; no focal motor deficits Psychiatric A+Ox3, euthymic affect Discharge Data Allergies Allergy/AdvReac Type Severity Reaction Status Date / Time Iodinated Contrast Media Allergy Severe PASS OUT, Verified 04/24/22 16:31 VOMITING cephalexin Allergy Intermediate Rash Verified 04/24/22 16:31 fentanyl Allergy Intermediate HIGH BLOOD Verified 04/24/22 16:31 PRESSURE, SKIN FLUSHED Cephalosporins Allergy Mild RASH Verified 04/24/22 16:31 Penicillins Allergy Mild RASH Verified 04/24/22 16:31 Sulfa (Sulfonamide Allergy Mild CAN'T Verified 04/24/22 16:31 Antibiotics) REMEMBER aspartame Allergy Unknown Unknown Verified 04/24/22 16:31 bee venom protein (honey bee) Allergy Unknown CAN'T Verified 04/24/22 16:31 REMEMBER ketorolac Allergy Unknown Unknown Verified 04/24/22 16:31 meperidine Allergy Unknown CAN'T Verified 04/24/22 16:31 REMEMBER stevioside [From Stevia] Allergy Unknown Unknown Verified 04/24/22 16:31 sucralose Allergy Unknown Unknown Verified 04/24/22 16:31 codeine AdvReac Severe ALTERED Verified 04/24/22 16:31 MENTAL STATUS morphine AdvReac Intermediate Nausea Verified 04/24/22 16:31 Consultations 04/24/22 16:55 ED Decision to Admit Stat 04/26/22 11:43 Consult [facility]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 Nonradiating. ECG here with chronic LBBB and likely ectopy and not atrial fibrillation Chest x-ray with large hiatal hernia but otherwise normal-pain likely from hiatal hernia Serial troponin negative. Pain is now completely resolved after starting IV Pepcid Lower/mid abdominal pain is also resolved after having a bowel movement -Continue po Pepcid bid on discharge in addition to her Protonix twice daily -If related to hiatal hernia, may benefit from thoracic surgery consultation as an outpatient but this would be a pretty extensive operation to correct -could also add on carafate as outpt if recurs (2) Urinary tract infection: Recently diagnosed with a group B beta Streptococcus UTI-urine culture results obtained from [facility] system collected on 04/13/2022 She has been taking Macrobid without improvement She thinks that the way she is feeling poorly is due to worsening urinary tract infection Lower/mid abdominal pain resolved after having a bowel movement Urine now clear and she feels much better after being on IV Vancomycin x [address] abdomen/pelvis checked for mid abdominal pain and symptoms of UTI-does show mild nonspecific bilateral perinephric stranding, large hiatal hernia, right- sided nephrolithiasis, and a 2 cm indeterminate lesion of the inferior pole of the left kidney mildly increased in size since 07/12/2021-correlation with n roger follow-up MRI of the abdomen recommended to exclude a small renal cell carcinoma No leukocytosis or fevers. -Discontinued Macrobid on admission -received vancomycin to cover for group B Streptococcus -Repeat urinalysis is abnormal and again shows signs of infection-urine culture here with lactobacillus (typically no need to treat) and Group B beta Strep but only 50,000 CFU (less than previous culture) -dc to home with po Levaquin x 5 more days to cover for Group B Strep -discontinue home oxybutynin as can contribute to recurrent UTIs -f/u with Urology as outpt for renal mass and recurrent UTI (3) Anemia: Microcytic and stable from previous at 9-10 With likely reactive thrombocytosis Iron studies show severe iron deficiency with transferrin saturation of 10% and ferritin quite low at 7 She does have a large hiatal hernia and could have Richard ulcers She denies any melena or hematochezia Gave Venofer 300 mg IV once daily x2 doses Follow-up with GI as an outpatient for EGD and colonoscopy (4) Hypertension: Blood pressures are normal to elevated Continue home diltiazem, metoprolol (5) Depression: No acute issues Continue home venlafaxine (6) T2DM (type 2 diabetes mellitus): Typically well controlled Continue Lantus and Novolog hemoglobin A1c well controlled at 7.4% restart home metformin on discharge (7) Vitamin D deficiency: Continue home supplement (8) Vitamin B12 deficiency: Continue home B12 supplement MCV is microcytic, do not suspect ongoing B12 deficiency (9) Dyslipidemia: Continue atorvastatin (10) Diabetic peripheral neuropathy: No acute issues Continue home pregabalin (11) Epilepsy: No seizures in 6 years Continue home Keppra Check Keppra level -pending at time of discharge (12) Obesity: BMI 47.3 Needs weight loss (13) Renal mass: As above, indeterminate 2 cm left renal mass Needs outpatient MRI of the kidney and follow-up with urology (14) Hernia, hiatal: Large, as above Plan DVT prophylaxis-Lovenox SQ, SCDs Disposition-much improved-stable for dc to home. Is independently ambulating in room DNR/DNI Total Time Total Time Spent Total Time Spent (In Minutes): 40 min Discharge Plan Discharge Items Patient Disposition: Home - Self-Care Reason For Visit: ABDOMINAL AND CHEST PAIN Discharge Diagnosis: Chest pain from Hiatal hernia Iron deficiency anemia UTI Condition on Discharge: Good Activity: Resume your previous activity Non-emergency contact: Primary Care Provider Call non-emergency contact if: you have any medication questions and your symptoms worsen Follow-up/Referrals: Ahmet Rico DO [Physician] - (Please schedule an appointment to discuss having an EGD and colonoscopy due to your iron deficiency anemia.) Moncho Angel DO [Physician] - (Please call to schedule an appointment with the Urologist about the growth on your left kidney.) Margarito Al [Primary Care Provider] - (Follow up within 1-2 weeks.) Diet: Carb Consistent or DM2 Addtl Attending Provider Instructions: You were admitted with chest pain which is likely from your large hiatal hernia (stomach is up in your chest). This improved with adding another antacid called famotidine (Pepcid). Please continue on this. You are anemia from iron deficiency and it is recommended that you see a Delivery Rn to have an EGD and a colonoscopy to look for a source of bleeding. Sometimes when you have a hiatal hernia, you can get ulcers in your stomach that slowly leak blood. You did not have any problems with your heart while you were here. Your UTI was treated with IV antibiotics and you will need to take 5 more days of an antibiotic called levofloxacin to finish out the course. You should NOT take your oxybutynin as this can cause you to get urinary tract infections. You were found to have a growth on your left kidney that will need follow up. Please make an appointment with a Urologist to further evaluate this. Pending Studies at Discharge: Yes Studies:: Keppra level Stand-Alone Forms: My [facility], Smoking Cessation Medications and DC Order Prescriptions: New levofloxacin 500 mg tablet 500 mg PO DAILY 5 Days Qty: 5 0RF famotidine 20 mg tablet 20 mg PO BID Qty: 60 0RF Continued pregabalin 150 mg capsule 150 mg PO BID 30 Days Qty: 60 2RF metformin 500 mg tablet 1,000 mg PO BIDM 90 Days Qty: 360 3RF atorvastatin 20 mg tablet 20 mg PO HS Qty: 30 cetirizine 10 mg tablet 10 mg PO DAILY cyanocobalamin (vitamin B-12) 1,000 mcg capsule 1,000 mcg PO DAILY Qty: 30 diltiazem HCl 180 mg capsule,extended release 24hr 180 mg PO QAM docusate sodium 100 mg capsule 200 mg PO HS magnesium oxide 400 mg (241.3 mg magnesium) tablet 400 mg PO QAM venlafaxine 150 mg capsule,extended release 24hr 150 mg PO QAM nitroglycerin 0.4 mg tablet, sublingual 0.4 mg SL DIRECTED PRN (Reason: Chest Pain) Rx Instructions: PLACE ONE TABLET UNDER THE TONGUE EVERY 5 MINUTES FOR UP TO 3 DOSES OVER 15 MINUTES IF NEEDED FOR CHEST PAIN insulin aspart U-100 [Novolog FlexPen U-100 Insulin] 100 unit/mL (3 mL) insulin pen See Rx Instructions .ROUTE .COMPLEX Rx Instructions: 10 UNITS WITH BREAKFAST 6 UNITS WITH LUNCH 10 UNITS WITH DINNER Lantus Solostar U-100 Insulin 100 unit/mL (3 mL) insulin pen 60 unit subcut HS polyethylene glycol 3350 [Miralax] 17 gram Powder In Packet 17 g PO QAM aspirin [Tia Low Dose Aspirin] 81 mg Tablet,Delayed Release (Dr/Ec) 81 mg PO QAM cholecalciferol (vitamin D3) [Vitamin D3] 50 mcg (2,000 unit) Capsule 2,000 unit PO QAM levetiracetam 500 mg tablet 500 mg PO BID metoprolol succinate 25 mg tablet extended release 24 hr 25 mg PO DAILY nystatin 100,000 unit/gram cream 1 applic TOPICAL BID Rx Instructions: use on affected area until resolved epinephrine 0.3 mg/0.3 mL auto-injector 0.3 mg IM UD PRN (Reason: Allergic Reaction) pantoprazole 40 mg Tablet,Delayed Release (Dr/Ec) 40 mg PO BID Qty: 60 0RF Discontinued oxybutynin chloride 5 mg tablet 5 mg PO BID nitrofurantoin monohyd/m-cryst 100 mg capsule 100 mg PO [facility] Rx Instructions: order 04/20/22 take for 7 days Discharge Orders: Discharge Order (Routine); Ordered 04/26/22 Ordered By: Betty Estrella Admission Data Admit Date/Time: 04/24/22 18:32 Attending Provider: Betty Estrella Admit Provider: Betty Estrella Primary Care Provider: Margarito Al Other Providers: Betty Estrella ; [facility] Coding Level of Care Code 88268 INP/OBS DISCH >30 MIN Diagnoses Chest pain R07.9 Chest pain type: unspecified Urinary tract infection N39.0 Anemia D64.9 Hypertension I10 Depression F32.A T2DM (type 2 diabetes mellitus) E11.9 Vitamin D deficiency E55.9 Vitamin B12 deficiency E53.8 Dyslipidemia E78.5 Diabetic peripheral neuropathy E11.42 Epilepsy G40.909 Obesity E66.9 Renal mass N28.89 Hernia, hiatal K44.9
[2022-04-26] MEDS ORDERED: VANCOMYCIN HCL 1,000 MG in SODIUM CHLORIDE 0.9% 250 ML IV SCH (18:00)
[2022-04-27] MEDS ORDERED: VANCOMYCIN LEVEL ONE (05:00)
== END 2022-04-26 13:10 | disposition home health service (06) | DRG 392 ==
LOC: ED 14:36 → 2S 18:32